=== PATIENT | female | born 1955 | race Caucasian/White ===

== ENCOUNTER 2016-05-12 23:37 | Emergency (ER) | payer MEDICARE, MEDICAID ==
[~2016-05-12] VITALS: Ht 177.8 cm; Wt 136.1 kg
[~2016-05-12 23:37] MED LIST: AC325T PO; AC500T PO; ACET650O PO; ALBU17AE3; ALBUT; APIX5TAB PO; APIX5TAB2 PO; ASP81TEC; ASP81TEC PO; ASPI-983 PO; AZIT-21 PO; AZIT500T2 PO; BENZ100C18 PO; BUDE180A IH; BUPR150T6; BUPR150T6 PO; CEFP500T4 PO; CEPH500C PO; CITA20TA4; CITA40TA11 PO; CITA40TA19 PO; CMBV14.7IN; CTLP20T; CTLP20T PO; CYCL10TA9 PO; DOXY-13 PO; ENAL20TA PO; ETOD400T PO; FLUT1DIS26 INH; FRSM40T; FURO40TA4 PO; GENT3.5O18 OD; HCTZ12.5T; HYDR-229 PO; HYDR-2890 PO; HYDR-3583 PO; HYDR-3820 PO; IBP800T PO; IPRA3AMP19; IPRA3AMP19 IH; KCL20TCR; KCL20TCR PO; LEVO250T7 PO; LEVO25TA5 PO; LEVO500T69 PO; LEVO50TA63; LISI10TA PO; LISI1TAB; LISI20TA; LSNP20T; LVT.025T; LVT.025T PO; MECL-106 PO; MECL25TA56 PO; METH4TAB PO; METO50TA2 PO; METO50TA7; METO50TA7 PO; MTP50T; MTP50T PO; MULT-1029 PO; NAPR-243 PO; NYST15CR3 TP; PNT40TEC PO; POTA20TA8 PO; PRD10T PO; PRD20T PO; RT-COMBINH; RT-COMBINH IH; RT-COMBINH INH; SIMV20TA3 PO; SMV20T; SMV20T PO; TELM1TAB2; TRAM50TA2 PO; TRM50T PO; WRF2.5T; WRF2.5T PO; WRF5T; WRF5T PO; ZLP10T PO; [UNRECOGNIZED DRUG - OTHER]
[2016-05-13] MEDS ORDERED: LACTATED RINGERS 1,000 ML IV ONE (00:04)
[2016-05-13 00:12] LABS: BASOPHILS % (AUTO) 0 % (0-10); EOSINOPHILS # (AUTO) 0.2 10^3/uL (0.0-0.3); EOSINOPHILS % (AUTO) 3 % (0-10); LYMPHOCYTES # (AUTO) 0.5 X 10^3 (1.0-4.0); LYMPHOCYTES % (AUTO) 8 % (12-44); MEAN CORPUSCULAR HEMOGLOBIN 30 PG (25-34); MEAN CORPUSCULAR HGB CONC 33 G/DL (32-36); MEAN CORPUSCULAR VOLUME 92 FL (80-99); MEAN PLATELET VOLUME 9.9 FL (7.4-10.4); MONOCYTES # (AUTO) 0.4 X 10^3 (0.0-1.0); MONOCYTES % (AUTO) 6 % (0-12); NEUTROPHILS % (AUTO) 83 % (42-75); PLATELET COUNT 164 10^3/uL (130-400); RED BLOOD COUNT 4.35 10^6/uL (4.35-5.85); RED CELL DISTRIBUTION WIDTH 13.9 % (10.0-14.5); WHITE BLOOD COUNT 6.1 10^3/uL (4.3-11.0)
--- NOTE | 2016-05-13 00:15 | ED GI ---
General Chief Complaint: Abdominal/GI Problems Stated Complaint: N/V/D Nursing Triage Note: n/v/d x 3 days Sepsis Screen: No Definite Risk Source of Information: Patient, Old Records History of Present Illness Time Seen By Provider: 00:01 Initial Comments PT ARRIVES VIA EMS FROM HOME C/O NAUSEA/VOMITING/DIARRHEA X 3 DAYS--EMS GAVE ZOFRAN 4 MG AND IV FLUIDS AND PT STATES SHE FEELS MUCH BETTER STATES SHE CAN'T KEEP ANYTHING DOWN LAST VOID UNKNOWN STATES SHE HAS VOMITED X 7 TODAY DIARRHEA BETWEEN 10 AND 20 TIMES TODAY SUBJECTIVE FEVER C/O HEADACHE--IS A CHRONIC COMPLAINT EVERY TIME SHE IS HERE, AND WANTS SOMETHING FOR PAIN FOR HER HEADACHE SOON SHE ARRIVES--THIS OCCURS EVERY TIME PT IS HERE C/O ENTIRE ABDOMEN IS SORE FROM VOMITING, BUT IS NOT ACTUAL ABDOMINAL PAIN +SICK CONTACTS WITH SAME NO SUSPICIOUS FOODS PT WITH MULTITUDE OF VISITS FOR VARIOUS COMPLAINTS PCP: DR. HAMEED Allergies and Home Medications Allergies Coded Allergies: No Known Drug Allergies (Verified , 04/02/15) Uncoded Allergies: NKDA (Allergy, Mild, 10/13/08) Home Medications Albuterol Sulfate/Ipratropium 3 Ml Solution 3 ML IH Q4H PRN PRN SHORTNESS OF BREATH (Reported) Apixaban 5 Mg Tablet 5 MG PO BID (Reported) Aspirin 81 Mg Tablet.dr 81 MG PO DAILY (Reported) Citalopram Hydrobromide 40 Mg Tablet 40 MG PO DAILY (Reported) Cyclobenzaprine HCl 10 Mg Tablet 10 MG PO TID PRN PRN MUSCLE SPASMS (Reported) Furosemide 40 Mg Tablet 40 MG PO DAILY (Reported) Hydrocodone/Acetaminophen 1 Each Tablet 1 TAB PO Q6H PRN PRN PAIN (Reported) Levothyroxine Sodium 25 Mcg Tablet 25 MCG PO DAILY (Reported) Meclizine HCl 25 Mg Tablet 25 MG PO TID PRN PRN DIZZINESS (Reported) Metoprolol Tartrate 50 Mg Tablet 50 MG PO BID (Reported) Multivit-Min/FA/Lycopene/Lut 1 Each Tablet 1 TAB PO DAILY (Reported) Ondansetron 4 Mg Tab.rapdis #10 4 MG PO Q4H Prescribed by: CARISSA ROMERO on 05/13/16 0049 Potassium Chloride 20 Meq Tab.er.prt 20 MEQ PO DAILY (Reported) Prednisone 20 Mg Tab #13 20 MG PO UD Prescribed by: SANDRITA ALVARADO on 06/16/15 1451 Simvastatin 20 Mg Tablet 20 MG PO HS (Reported) Review of Systems Constitutional: see HPI fever malaise weakness EENTM: Other (DRY MOUTH) Respiratory: No Symptoms Reported Cardiovascular: No Symptoms Reported Gastrointestinal: See HPI Abdominal Pain Diarrhea Nausea Poor Appetite Poor Fluid IntakeDenies Rectal Bleeding, Vomiting Genitourinary: No Symptoms Reported Musculoskeletal: no symptoms reported Skin: no symptoms reported Psychiatric/Neurological: No Symptoms Reported Endocrine: No Symptoms Reported Hematologic/Lymphatic: No Symptoms Reported Past [id number] Hx Patient Social History Alcohol Use: Denies Use Recreational Drug Use: No Smoking Status: Never a Smoker Recent Foreign Travel: No Contact w/Someone Who Travel: No Recent Infectious Disease Expo: No Physical Abuse Screen: No Sexual Abuse: No Immunizations Up To Date Tetanus Booster (TDap): Unknown PED Vaccines UTD: No Date of Pneumonia Vaccine: Apr 26, 2012 Date of Influenza Vaccine: Feb 24, 2015 Seasonal Allergies Seasonal Allergies: No Surgeries HX Surgeries: Yes (BILATERAL LEG VEIN STRIPPING ; MULTIPLE CARDIAC CATHS; LEFT WRIST REPAIR) Surgeries: Appendectomy, Cardiac, Ear Surgery, Hysterectomy, Orthopedic, Tubal Ligation, Vascular Surgery Respiratory Hx Respiratory Disorders: Yes Respiratory Disorders: Asthma, Pneumonia, Chronic Bronchitis, Sleep Apnea, COPD Cardiovascular Hx Cardiac Disorders: Yes ([place] 2005; VARICOSE VEINS) Cardiac Disorders: Atrial Fibrillation, Coronary Artery Disease, Heart Attack, High Cholesterol, Hypertension, Irregular Heartbeat, Peripheral Vascular Neurological Hx Neurological Disorders: Yes Neurological Disorders: Headaches /Migraines 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 System Hx 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 Disorders: No Sexually Transmitted Disease: No HIV/AIDS: No Female 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, Menopausal Genitourinary Hx Genitourinary Disorders: No Gastrointestinal Hx Gastrointestinal Disorders: No Musculoskeletal Hx Musculoskeletal Disorders: Yes ("PLATE IN LEFT WRIST"--NARCOTIC DEPENDENT) Musculoskeletal Disorders: Arthritis, Chronic Back Pain, Fractures Endocrine Hx Endocrine Disorders: Yes Endocrine Disorders: Hypothyroidsim HEENT HX ENT Disorders: No Loss of Vision: Denies Hearing Impairment: Denies Cancer Hx Cancer: No Psychosocial Hx Psychiatric Problems: Yes Behavioral Health Disorders: Anxiety, Bipolar, Depression Integumentary HX Skin/Integumentary Disorder: No Blood Transfusions Hx Blood Disorders: No Adverse Reaction to a Blood Tr: No Family Medical History Family Medial History: Cancer 03 MOTHER, Onset:60 years & older son, Onset:10's - 15 Dementia 03 MOTHER, Onset:60 years & older Family history: Alzheimer's disease 03 MOTHER, Onset:60 years & older Family history: Hypertension 09 BROTHER, Onset:30's - 40 Family history: Thyroid disorder daughter, Onset:20's - 25 History of - respiratory disease 09 BROTHER, Onset: Physical Exam Vital Signs VS - Last 72 Hours, by Label 05/12/16 23:45 Temp 100.7 Pulse 81 Resp 15 B/P 147/85 Pulse Ox 92 O2 Delivery Room Air Capillary Refill : Less Than 3 Seconds General Appearance: obese (MORBIDLY OBESE) other (DIRTY, MALODOROUS; REEKS OF CIGARETTES) HEENT: PERRL/EOMI other (ORAL MUCOSA MOIST) Respiratory: normal breath sounds no respiratory distress no accessory muscle use Cardiovascular: regular rate, rhythm no murmur Gastrointestinal: soft no organomegaly no pulsatile mass abnormal bowel sounds (HYPERACTIVE)No distended, No guarding, No rebound, tenderness (MILD DIFFUSE TENDERNESS)No hernia, No mass Extremities: normal inspection no pedal edema normal capillary refill Back: no CVA tenderness 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 no motor/sensory deficits alert normal mood/affect oriented x 3 Skin: normal color warm/dry Progress/Results/Core Measures Results/Orders Lab Results Laboratory Tests Test 05/12/16 23:44 05/13/16 00:40 Range/Units Alanine Aminotransferase (ALT/SGPT) 15 0-55 U/L Albumin 3.7 3.2-4.5 G/DL Alkaline Phosphatase 76 40-136 U/L Amylase Level 32 25-125 U/L Anion Gap 9 5-14 MMOL/L Aspartate Amino Transf (AST/SGOT) 19 5-34 U/L BUN/Creatinine Ratio 12 Basophils # (Auto) 0.0 0.0-0.1 10^3/uL Basophils (%) (Auto) 0 0-10 % Blood Urea Nitrogen 9 7-18 MG/DL Calcium Level 8.3 L 8.5-10.1 MG/DL Carbon Dioxide Level 24 21-32 MMOL/L Chloride Level 107 98-107 MMOL/L Creatinine 0.78 0.60-1.30 MG/DL Eosinophils # (Auto) 0.2 0.0-0.3 10^3/uL Eosinophils (%) (Auto) 3 0-10 % Estimat Glomerular Filtration Rate > 60 Glucose Level 130 H 70-105 MG/DL Hematocrit 40 35-52 % Hemoglobin 13.0 11.5-16.0 G/DL Lipase 11 8-78 U/L Lymphocytes # (Auto) 0.5 L 1.0-4.0 X 10^3 Lymphocytes (%) (Auto) 8 L 12-44 % Mean Corpuscular Hemoglobin 30 25-34 PG Mean Corpuscular Hemoglobin Concent 33 32-36 G/DL Mean Corpuscular Volume 92 80-99 FL Mean Platelet Volume 9.9 7.4-10.4 FL Monocytes # (Auto) 0.4 0.0-1.0 X 10^3 Monocytes (%) (Auto) 6 0-12 % Neutrophils # (Auto) 5.0 1.8-7.8 X 10^3 Neutrophils (%) (Auto) 83 H 42-75 % Platelet Count 164 130-400 10^3/uL Potassium Level 3.8 3.6-5.0 MMOL/L Red Blood Count 4.35 4.35-5.85 10^6/uL Red Cell Distribution Width 13.9 10.0-14.5 % Serum Alcohol < 10 <10 MG/DL Sodium Level 140 135-145 MMOL/L Total Bilirubin 0.6 0.1-1.0 MG/DL Total Protein 6.0 L 6.4-8.2 G/DL White Blood Count 6.1 4.3-11.0 10^3/uL Ur Tricyclic Antidepressants Screen NEGATIVE NEGATIVE Urine Amphetamines Screen NEGATIVE NEGATIVE Urine Bacteria NEGATIVE /HPF Urine Barbiturates Screen NEGATIVE NEGATIVE Urine Benzodiazepines Screen NEGATIVE NEGATIVE Urine Bilirubin NEGATIVE NEGATIVE Urine Cannabinoids Screen NEGATIVE NEGATIVE Urine Casts NONE /LPF Urine Clarity CLEAR Urine Cocaine Screen NEGATIVE NEGATIVE Urine Color YELLOW Urine Crystals NONE /LPF Urine Culture Indicated NO Urine Glucose (UA) NEGATIVE NEGATIVE Urine Ketones NEGATIVE NEGATIVE Urine Leukocyte Esterase 1+ H NEGATIVE Urine Methadone Screen NEGATIVE NEGATIVE Urine Methamphetamines Screen NEGATIVE NEGATIVE Urine Mucus SMALL H /LPF Urine Nitrite NEGATIVE NEGATIVE Urine Opiates Screen NEGATIVE NEGATIVE Urine Oxycodone Screen NEGATIVE NEGATIVE Urine Phencyclidine Screen NEGATIVE NEGATIVE Urine Propoxyphene Screen NEGATIVE NEGATIVE Urine Protein NEGATIVE NEGATIVE Urine RBC 2-5 H /HPF Urine RBC (Auto) 2+ H NEGATIVE Urine Specific [place] 1.010 L 1.016-1.022 Urine Squamous Epithelial Cells 2-5 /HPF Urine Urobilinogen NORMAL NORMAL MG/DL Urine WBC RARE /HPF Urine pH 6.5 5-9 My Orders Orders-DEANNA ROMEROGil Mejia DO Saline Lock/Iv-Start (05/13/16 00:04) Alcohol (05/13/16 00:04) Amylase (05/13/16 00:04) Cbc With Automated Diff (05/13/16 00:04) Comprehensive Metabolic Panel (05/13/16 00:04) Drug Screen Stat (Urine) (05/13/16 00:04) Lipase (05/13/16 00:04) Ua Culture If Indicated (05/13/16 00:04) Saline Lock/Iv-Start (05/13/16 00:04) Lactated Ringers (Lr 1000 Ml Iv Solution (05/13/16 00:04) Rx-Ondansetron Po (Rx-Zofran Po) (05/13/16 01:16) Medications Given in ED Current Medications Medications Dose Ordered Sig/Brianna Route Start Time Stop Time Status Last Admin Dose Admin Lactated Ringer's 1,000 ml @ 0 mls/hr Q0M ONCE IV 05/13/16 00:04 05/13/16 00:06 DC 05/13/16 00:16 0 MLS/HR Vital Signs/I&O Vital Sign - Last 12Hours 05/12/16 23:45 Temp 100.7 Pulse 81 Resp 15 B/P 147/85 Pulse Ox 92 O2 Delivery Room Air Blood Pressure Mean: 105 Progress Note : Progress Note NO NAUSEA/VOMITING OR DIARRHEA DURING ER STAY PT SLEPT/RESTED QUIETLY FOR ENTIRE ER STAY Departure Impression Impression: Primary Impression: Gastroenteritis Disposition: 01 HOME, SELF-CARE Condition: Stable Departure-Patient Inst. Referrals: SAIDA HAMEED MD (PCP/Family) Primary Care Physician Patient Instructions: Viral Gastroenteritis, Adult (DC) Add. Discharge Instructions: CLEAR LIQUIDS--WATER, BROTH, JELLO, GATORADE WHEN YOUR NAUSEA AND VOMITING HAVE STOPPED, ADD BRATS DIET TO CLEAR LIQUIDS-- BANANAS, RICE, APPLESAUCE, TOAST, SALTINES ACIDOPHILUS 2 PILLS 4 TIMES A DAY X 1 WEEK FOLLOW UP WITH YOUR DR IN 2-3 DAYS IF NO BETTER All discharge instructions reviewed with patient and/or family. Voiced understanding. Scripts Ondansetron (Zofran Odt)4 Mg Tab.rapdis4 Mg PO Q4H Nausea/Vomiting #10 TAB Prov:CARISSA ROMERO DO 05/13/16 CARISSA ROMERO DO May 13, 2016 00:15
[2016-05-13 00:27] LABS: ALANINE AMINOTRANSFERASE 15 U/L (0-55); ALBUMIN 3.7 G/DL (3.2-4.5); ALCOHOL < 10 MG/DL (<10); AMYLASE 32 U/L (25-125); ANION GAP 9 MMOL/L (5-14); ASPARTATE AMINO TRANSFERASE 19 U/L (5-34); BILIRUBIN,TOTAL 0.6 MG/DL (0.1-1.0); BLOOD UREA NITROGEN 9 MG/DL (7-18); BUN/CREATININE RATIO 12; CALCIUM 8.3 MG/DL (8.5-10.1); CARBON DIOXIDE 24 MMOL/L (21-32); CHLORIDE 107 MMOL/L (98-107); CREATININE SERUM 0.78 MG/DL (0.60-1.30); GFR ESTIMATED > 60; GLUCOSE 130 MG/DL (70-105); LIPASE 11 U/L (8-78); POTASSIUM 3.8 MMOL/L (3.6-5.0); SODIUM 140 MMOL/L (135-145)
[2016-05-13] MEDS ORDERED: ONDA4TAB8 PO (00:49)
[2016-05-13 00:50] LABS: BILIRUBIN,URINE NEGATIVE (NEGATIVE); KETONES,URINE NEGATIVE (NEGATIVE); LEUKOCYTE ESTERASE ,URINE 1+ (NEGATIVE); NITRITE,URINE NEGATIVE (NEGATIVE); PH,URINE 6.5 (5-9); PROTEIN,URINE NEGATIVE (NEGATIVE); UROBILINOGEN,URINE NORMAL (NORMAL)
[2016-05-13 01:03] LABS: WBC,URINE RARE /HPF
[2016-05-13] MEDS ORDERED: RX-ONDANSETRON 4 MG ODT (ZOFRAN) PPK #4 PO STA (01:16)
[2016-05-13 01:20] VITALS: BP 140/94
== END 2016-05-13 01:24 | disposition home or self-care (01) ==
LOC: EDUNIT# 23:37 → ER 23:38
DX: K52.9 Noninfective gastroenteritis and colitis, unspecified (principal); I10 Essential (primary) hypertension; J44.9 Chronic obstructive pulmonary disease, unspecified; E66.01 Morbid (severe) obesity due to excess calories; Z79.82 Long term (current) use of aspirin; Z79.899 Other long term (current) drug therapy; Z79.891 Long term (current) use of opiate analgesic
CPT/HCPCS: 36415; 80053; 80306; 80320; 81000; 82150; 83690; 85025; 96360

== ENCOUNTER 2016-08-25 14:26 | Emergency (ER) | payer MEDICARE, MEDICAID ==
[~2016-08-25] VITALS: Ht 177.8 cm; Wt 133.8 kg
[~2016-08-25 14:26] MED LIST changes: +ONDA4TAB8 PO
[2016-08-25 15:22] LABS: BASOPHILS % (AUTO) 0 % (0-10); EOSINOPHILS # (AUTO) 0.2 10^3/uL (0.0-0.3); EOSINOPHILS % (AUTO) 3 % (0-10); LYMPHOCYTES # (AUTO) 1.2 X 10^3 (1.0-4.0); LYMPHOCYTES % (AUTO) 17 % (12-44); MEAN CORPUSCULAR HEMOGLOBIN 29 PG (25-34); MEAN CORPUSCULAR HGB CONC 32 G/DL (32-36); MEAN CORPUSCULAR VOLUME 90 FL (80-99); MEAN PLATELET VOLUME 10.5 FL (7.4-10.4); MONOCYTES # (AUTO) 0.5 X 10^3 (0.0-1.0); MONOCYTES % (AUTO) 7 % (0-12); NEUTROPHILS # (AUTO) 5.3 X 10^3 (1.8-7.8); NEUTROPHILS % (AUTO) 73 % (42-75); PLATELET COUNT 205 10^3/uL (130-400); RED BLOOD COUNT 4.78 10^6/uL (4.35-5.85); WHITE BLOOD COUNT 7.2 10^3/uL (4.3-11.0)
[2016-08-25] MEDS ORDERED: ASPIRIN 81 MG CHEW (CHILDREN'S ASA) PO ONE (15:30)
[2016-08-25 15:42] LABS: ALANINE AMINOTRANSFERASE 17 U/L (0-55); ALBUMIN 4.2 G/DL (3.2-4.5); ANION GAP 7 MMOL/L (5-14); ASPARTATE AMINO TRANSFERASE 21 U/L (5-34); BILIRUBIN,TOTAL 0.5 MG/DL (0.1-1.0); BLOOD UREA NITROGEN 10 MG/DL (7-18); BUN/CREATININE RATIO 12; CALCIUM 9.2 MG/DL (8.5-10.1); CARBON DIOXIDE 29 MMOL/L (21-32); CHLORIDE 103 MMOL/L (98-107); CREATININE SERUM 0.86 MG/DL (0.60-1.30); GFR ESTIMATED > 60; GLUCOSE 104 MG/DL (70-105); MAGNESIUM 1.9 MG/DL (1.8-2.4); SODIUM 139 MMOL/L (135-145); TOTAL PROTEIN 6.9 G/DL (6.4-8.2)
--- NOTE | 2016-08-25 15:47 | ED General ---
General Chief Complaint: Abdominal/GI Problems Stated Complaint: DIZZINESS/NAUSEA/SHAKEY LEFT CALF PAIN Nursing Triage Note: SOB WITH ACTIVITY, LEFT POSTERIOR KNEE PAIN STARTED AT APPROX. 1200. Nursing Sepsis Screen: No Definite Risk Source of Information: Patient Exam Limitations: No Limitations (JAMES PHELAN MD) History of Present Illness Time Seen by Provider: 15:15 Initial Comments Here with report of 2 episodes today of feeling shaky, weak, dizzy and nauseated. Initially she was at work when she felt this way and had to sit down. After a little while she felt better. She tried walking around the [employer] after she got home and then noted that she had another episode of this and was told by her primary care doctor to come to the ER. Patient denies vomiting. She did have some epigastric discomfort but states that is typical for her. Denies any breathing problems. She did have sweating with the episodes earlier. She does have cardiac history and states that she takes her medicine as directed. Initial episode started at about noon today. She also complains of posterior left leg pain below the knee. Timing/Duration: 1-3 Hours, Intermittent Severity: Moderate Modifying Factors: worse with Movement, improves with Rest Associated Systoms: No Chest Pain, No Cough, Diaphoresis, Nausea/Vomiting, No Shortness of Air, Weakness (JAMES PHELAN MD) Allergies and Home Medications Allergies Coded Allergies: No Known Drug Allergies (Verified , 04/02/15) Home Medications Albuterol Sulfate/Ipratropium 3 Ml Solution, 3 ML IH Q4H PRN for SHORTNESS OF BREATH, (Reported) Apixaban 5 Mg Tablet, 5 MG PO BID, (Reported) Aspirin 81 Mg Tablet.dr, 81 MG PO DAILY, (Reported) Citalopram Hydrobromide 40 Mg Tablet, 40 MG PO DAILY, (Reported) Cyclobenzaprine HCl 10 Mg Tablet, 10 MG PO TID PRN for MUSCLE SPASMS, (Reported) Furosemide 40 Mg Tablet, 40 MG PO DAILY, (Reported) Levothyroxine Sodium 25 Mcg Tablet, 25 MCG PO DAILY, (Reported) Meclizine HCl 25 Mg Tablet, 25 MG PO TID PRN for DIZZINESS, (Reported) Metoprolol Tartrate 50 Mg Tablet, 50 MG PO BID, (Reported) Multivit-Min/FA/Lycopene/Lut 1 Each Tablet, 1 TAB PO DAILY, (Reported) Potassium Chloride 20 Meq Tab.er.prt, 20 MEQ PO DAILY, (Reported) Prednisone 20 Mg Tab, 20 MG PO UD, #13 Prescribed by: SANDRITA ALVARADO on 06/16/15 1451 Simvastatin 20 Mg Tablet, 20 MG PO HS, (Reported) Constitutional: see HPI, No chills, diaphoresis, No fever EENTM: no symptoms reported Respiratory: no symptoms reported, No short of breath, No wheezing Cardiovascular: No chest pain, Hx of Intervention Gastrointestinal: see HPI, No abdominal pain, nausea, No vomiting Genitourinary: no symptoms reported Musculoskeletal: see HPI Skin: see HPI Psychiatric/Neurological: No Symptoms Reported (JAMES PHELAN MD) All Other Systems Reviewed Negative Unless Noted: Yes (JAMES PHELAN MD) Past Jdpbeum-Gqmkds-Ypmjfc Hx Patient Social History Alcohol Use: Denies Use Recreational Drug Use: No Smoking Status: Never a Smoker 2nd Hand Smoke Exposure: No Recent Foreign Travel: No Contact w/Someone Who Travel: No Recent Infectious Disease Expo: No (JAMES PHELAN MD) Immunizations Up To Date Tetanus Booster (TDap): Unknown PED Vaccines UTD: No Date of Pneumonia Vaccine: Apr 26, 2012 Date of Influenza Vaccine: Feb 24, 2015 (JAMES PHELAN MD) Seasonal Allergies Seasonal Allergies: No (JAMES PHELAN MD) Surgeries HX Surgeries: Yes (BILATERAL LEG VEIN STRIPPING ; MULTIPLE CARDIAC CATHS; LEFT WRIST REPAIR) Surgeries: Appendectomy, Cardiac, Ear Surgery, Hysterectomy, Orthopedic, Tubal Ligation, Vascular Surgery (JAMES PHELAN MD) Respiratory Hx Respiratory Disorders: Yes Respiratory Disorders: Asthma, Pneumonia, Chronic Bronchitis, Sleep Apnea, COPD (JAMES PHELAN MD) Cardiovascular Hx Cardiac Disorders: Yes ([place] 2005; VARICOSE VEINS) Cardiac Disorders: Atrial Fibrillation, Coronary Artery Disease, Heart Attack, High Cholesterol, Hypertension, Irregular Heartbeat, Peripheral Vascular (JAMES PHELAN MD) Neurological Hx Neurological Disorders: Yes Neurological Disorders: Headaches /Migraines (JAMES PHELAN MD) 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 System Hx 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 Disorders: No Sexually Transmitted Disease: No HIV/AIDS: No Female 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 [employer] History: Hysterectomy, Menopausal (JAMES PHELAN MD) Genitourinary Hx Genitourinary Disorders: No (JAMES PHELAN MD) Gastrointestinal Hx Gastrointestinal Disorders: No (JAMES PHELAN MD) Musculoskeletal Hx Musculoskeletal Disorders: Yes ("PLATE IN LEFT WRIST"--NARCOTIC DEPENDENT) Musculoskeletal Disorders: Arthritis, Chronic Back Pain, Fractures (JAMES PHELAN MD) Endocrine Hx Endocrine Disorders: Yes Endocrine Disorders: Hypothyroidsim (JAMES PHELAN MD) HEENT HX ENT Disorders: No Loss of Vision: Denies Hearing Impairment: Denies (JAMES PHELAN MD) Cancer Hx Cancer: No (JAMES PHELAN MD) Psychosocial Hx Psychiatric Problems: Yes Behavioral Health Disorders: Anxiety, Bipolar, Depression (JAMES PHELAN MD) Integumentary HX Skin/Integumentary Disorder: No (JAMES PHELAN MD) Blood Transfusions Hx Blood Disorders: No Adverse Reaction to a Blood Tr: No (JAMES PHELAN MD) Reviewed Nursing Assessment Reviewed/Agree w Nursing PMH: Yes (JAMES PHELAN MD) Family Medical History Family Medial History: Cancer 03 MOTHER, Onset:60 years & older son, Onset:10's - 15 Dementia 03 MOTHER, Onset:60 years & older Family history: Alzheimer's disease 03 MOTHER, Onset:60 years & older Family history: Hypertension 09 BROTHER, Onset:30's - 40 Family history: Thyroid disorder daughter, Onset:20's - 25 History of - respiratory disease 09 BROTHER, Onset: (JAMES PHELAN MD) Family Medial History: Cancer 03 MOTHER, Onset:60 years & older son, Onset:10's - 15 Dementia 03 MOTHER, Onset:60 years & older Family history: Alzheimer's disease 03 MOTHER, Onset:60 years & older Family history: Hypertension 09 BROTHER, Onset:30's - 40 Family history: Thyroid disorder daughter, Onset:20's - 25 History of - respiratory disease 09 BROTHER, Onset: (JULIANA HERNANDEZ DO) Physical Exam Vital Signs Vital Sign - Last 12Hours 08/25/16 14:45 Temp 98.9 Pulse 62 Resp 20 B/P (MAP) 143/95 Pulse Ox 94 O2 Delivery Room Air (JULIANA HERNANDEZ DO) Vital Signs Capillary Refill : Less Than 3 Seconds (JAMES PHELAN MD) General Appearance: No Apparent Distress, WD/WN HEENT: PERRL/EOMI, Pharynx Normal Neck: Non Tender, Supple Respiratory: Lungs Clear, Normal Breath Sounds Cardiovascular: Regular Rate, Rhythm, No Murmur Gastrointestinal: Non Tender, Soft Back: Normal Inspection, No CVA Tenderness, No Vertebral Tenderness Extremity: Non Tender, Calf Tenderness (left) Neurologic/Psychiatric: Alert, Oriented x3 Skin: Normal Color, Warm/Dry (JAMES PHELAN MD) Progress/Results/Core Measures Results/Orders Lab Results Laboratory Tests Test 08/25/16 14:53 08/25/16 16:00 Range/Units White Blood Count 7.2 4.3-11.0 10^3/uL Red Blood Count 4.78 4.35-5.85 10^6/uL Hemoglobin 13.8 11.5-16.0 G/DL Hematocrit 43 35-52 % Mean Corpuscular Volume 90 80-99 FL Mean Corpuscular Hemoglobin 29 25-34 PG Mean Corpuscular Hemoglobin Concent 32 32-36 G/DL Red Cell Distribution Width 14.0 10.0-14.5 % Platelet Count 205 130-400 10^3/uL Mean Platelet Volume 10.5 H 7.4-10.4 FL Neutrophils (%) (Auto) 73 42-75 % Lymphocytes (%) (Auto) 17 12-44 % Monocytes (%) (Auto) 7 0-12 % Eosinophils (%) (Auto) 3 0-10 % Basophils (%) (Auto) 0 0-10 % Neutrophils # (Auto) 5.3 1.8-7.8 X 10^3 Lymphocytes # (Auto) 1.2 1.0-4.0 X 10^3 Monocytes # (Auto) 0.5 0.0-1.0 X 10^3 Eosinophils # (Auto) 0.2 0.0-0.3 10^3/uL Basophils # (Auto) 0.0 0.0-0.1 10^3/uL Sodium Level 139 135-145 MMOL/L Potassium Level 4.0 3.6-5.0 MMOL/L Chloride Level 103 98-107 MMOL/L Carbon Dioxide Level 29 21-32 MMOL/L Anion Gap 7 5-14 MMOL/L Blood Urea Nitrogen 10 7-18 MG/DL Creatinine 0.86 0.60-1.30 MG/DL Estimat Glomerular Filtration Rate > 60 BUN/Creatinine Ratio 12 Glucose Level 104 70-105 MG/DL Calcium Level 9.2 8.5-10.1 MG/DL Magnesium Level 1.9 1.8-2.4 MG/DL Total Bilirubin 0.5 0.1-1.0 MG/DL Aspartate Amino Transf (AST/SGOT) 21 5-34 U/L Alanine Aminotransferase (ALT/SGPT) 17 0-55 U/L Alkaline Phosphatase 91 40-136 U/L Troponin I < 0.30 <0.30 NG/ML Total Protein 6.9 6.4-8.2 G/DL Albumin 4.2 3.2-4.5 G/DL Lipase 20 8-78 U/L Thyroid Stimulating Hormone (TSH) 3.72 0.35-4.94 UIU/ML Urine Color YELLOW Urine Clarity CLEAR Urine pH 6 5-9 Urine Specific [place] 1.010 L 1.016-1.022 Urine Protein NEGATIVE NEGATIVE Urine Glucose (UA) NEGATIVE NEGATIVE Urine Ketones NEGATIVE NEGATIVE Urine Nitrite NEGATIVE NEGATIVE Urine Bilirubin NEGATIVE NEGATIVE Urine Urobilinogen NORMAL NORMAL MG/DL Urine Leukocyte Esterase 2+ H NEGATIVE Urine RBC (Auto) 1+ H NEGATIVE Urine RBC RARE /HPF Urine WBC 10-25 H /HPF Urine Squamous Epithelial Cells 0-2 /HPF Urine Crystals NONE /LPF Urine Bacteria FEW H /HPF Urine Casts NONE /LPF Urine Mucus NEGATIVE /LPF Urine Culture Indicated YES (JULIANA HERNANDEZ DO) Medications Given in ED Current Medications Medications Dose Ordered Sig/Brianna Route Start Time Stop Time Status Last Admin Dose Admin Aspirin 324 mg ONCE ONCE PO 08/25/16 15:30 08/25/16 15:31 DC 08/25/16 16:11 324 MG Iohexol 150 ml ONCE ONCE IV 08/25/16 16:45 08/25/16 17:01 DC 08/25/16 17:44 150 ML Sodium Chloride 1,000 ml @ 0 mls/hr Q0M ONCE IV 08/25/16 16:35 08/25/16 16:36 DC 08/25/16 17:09 1,000 MLS/HR (JULIANA HERNANDEZ DO) Vital Signs/I&O Vital Sign - Last 12Hours 08/25/16 14:45 Temp 98.9 Pulse 62 Resp 20 B/P (MAP) 143/95 Pulse Ox 94 O2 Delivery Room Air (JULIANA HERNANDEZ DO) Blood Pressure Mean: 111 Progress Note : Progress Note Seen and evaluated. Aspirin 324 mg by mouth ordered. IV, labs, chest x-ray and EKG ordered. Ultrasound left lower extremity venous ordered. Monitor patient. Patient is currently without chest pain or symptoms. 1630: CT chest and abdomen ordered due to x-ray findings. Normal saline 1 L bolus ordered. Monitor patient. 1805: CT angiogram completed. Final read pending. (JAMES PHELAN MD) ECG Initial ECG Impression Date: August 25, 2016 Initial ECG Impression Time: 15:33 Initial ECG Rate: 56 Initial ECG Rhythm: Normal Sinus Comment Sinus rhythm with normal axis. No evidence of ST elevation [place]. Similar to previous of 10/13/13. Interpreted by me. (JAMES PHELAN MD) Diagnostic Imaging Diagonstic Imaging: Xray Plain Films/CT/US/NM/MRI: chest Comments NAME: PEYMAN MENDO[facility] REC#: [id number] PT STATUS: REG ER : 1955 PHYSICIAN: JAMES PHELAN MD ADMIT DATE: 08/25/16/ER Signed Date of Exam: 08/25/16 CHEST PA/LAT (2 VIEW) INDICATION: Patient was at work when she start feeling dizzy and sweating with shortness of air. COMPARISON STUDY: Chest from 02/25/2016. FINDINGS: Frontal and lateral views of the chest demonstrate some tortuosity of the aorta which appears stable. The heart size remains upper normal. The vascularity is normal. There are no effusions. IMPRESSION: There is tortuosity of the aorta. This appears stable. Some aneurysmal dilatation cannot be excluded. Dictated by: Dictated on workstation # [id number] Dict: 08/25/16 161 Trans: 08/25/16 161 Interpreted by: CHANDLER CHANG MD Electronically signed by: CHANDLER CHANG MD 08/25/161616 Diagonstic Imaging: Ultrasound Plain Films/CT/US/NM/MRI: leg Comments [facility] [place], [place] NAME: PEYMAN MENDOZA [facility] REC#: [id number] PT STATUS: [facility] ER : 1955 PHYSICIAN: JAMES PHELAN MD ADMIT DATE: 08/25/16/ER Draft Date of Exam:08/25/16 US VENOUS LOWER EXT LT PROCEDURE: US left lower extremity venous. TECHNIQUE: Multiple real-time grayscale images were obtained over the left lower extremity in various projections. Additional duplex Doppler and color Doppler images were also obtained. INDICATION: Pain behind the left leg. FINDINGS: Real-time imaging shows normal color flow enhancement from the external iliac vein to the ankle. Calf compression shows normal augmentation of flow at the popliteal level. No evidence of popliteal cyst. IMPRESSION: Normal left lower extremity color duplex venous ultrasound. Dictated on workstation # [id number] Dict: 08/25/16 1610 Trans: 08/25/16 1614 [id number] Interpreted by: RADHA ROSADO MD Electronically signed by: Diagonstic Imaging: CT Plain Films/CT/US/NM/MRI: chest, abdomen Comments NAME: PEYMAN MENDOZA [facility] REC#: [id number] PT STATUS: [facility] ER : 1955 PHYSICIAN: JAMES PHELAN MD ADMIT DATE: 08/25/16/ER Signed Date of Exam: 08/25/16 CT ANGIO CHEST/ABD W PROCEDURE: CT angiography of the abdomen and chest with and without contrast. TECHNIQUE: After intravenous administration of contrast, thin section axial CT angiography of the abdomen and chest were obtained. Multiple MIP reformats were provided. INDICATION: Dizziness, warm flush feeling. COMPARISON: 01/29/2010. DISCUSSION: Chest: There is no large or central pulmonary embolus identified. The pulmonary arteries are not dilated. The thoracic aorta is normal in caliber and configuration. Mild atherosclerotic plaque is present. The heart is normal in size. No pleural or pericardial fluid. No focal consolidation or suspicious pulmonary nodule identified. No mediastinal, hilar, or axillary adenopathy. Mild tortuosity of the thoracic aorta is likely due to long-standing hypertension. Abdomen: Small cystic changes are noted within the liver and the right kidney, benign in appearance. The gallbladder, pancreas, stomach, adrenal glands, and left kidney are unremarkable. The spleen is enlarged measuring 15.5 cm. There is no ascites or abnormal lymph nodes identified. The large and small bowel loops appear within normal limits, as visualized. Age-related degenerative changes are noted throughout the spine. No acute osseous abnormality identified. IMPRESSION: 1. No acute abnormality identified within either the abdomen or chest. 2. Splenomegaly. Dictated by: Dictated on workstation # [id number] Dict: 08/25/16 1804 Trans: 08/25/161910 Interpreted by: SONIA ESPANA MD Electronically signed by: SONIA ESPANA MD 08/25/161910 (JAMES PHELAN MD) Departure Impression Impression: Primary Impression: Chest pain Disposition: 01 HOME, SELF-CARE Departure-Patient Inst. Decision time for Depature: 18:07 (JAMES PHELAN MD) Referrals: SAIDA HAMEED MD (PCP/Family) Primary Care Physician Patient Instructions: Chest Pain (DC) Add. Discharge Instructions: All discharge instructions reviewed with patient and/or family. Voiced understanding. Continue home medications as directed. Follow-up with your Dr. in a few days for recheck. Return for worse pain, fever, vomiting, weakness, breathing problems or other concerns as needed. Drink adequate amount of fluids. JAMES PHELAN MD August 25, 2016 15:46 JULIANA HERNANDEZ DO August 25, 2016 18:28
[2016-08-25 15:53] LABS: THYROID STIMULATING HORMONE 3.72 UIU/ML (0.35-4.94); TROPONIN I < 0.30 NG/ML (<0.30)
--- NOTE | 2016-08-25 16:14 | Diagnostic Imaging Report ---
PROCEDURE: US left lower extremity venous. TECHNIQUE: Multiple real-time grayscale images were obtained over the left lower extremity in various projections. Additional duplex Doppler and color Doppler images were also obtained. INDICATION: Pain behind the left leg. FINDINGS: Real-time imaging shows normal color flow enhancement from the external iliac vein to the ankle. Calf compression shows normal augmentation of flow at the popliteal level. No evidence of popliteal cyst. IMPRESSION: Normal left lower extremity color duplex venous ultrasound. Dictated by: Dictated on workstation # [id number]
--- NOTE | 2016-08-25 16:16 | Diagnostic Imaging Report ---
INDICATION: Patient was at work when she start feeling dizzy and sweating with shortness of air. COMPARISON STUDY: Chest from 02/25/2016. FINDINGS: Frontal and lateral views of the chest demonstrate some tortuosity of the aorta which appears stable. The heart size remains upper normal. The vascularity is normal. There are no effusions. IMPRESSION: There is tortuosity of the aorta. This appears stable. Some aneurysmal dilatation cannot be excluded. Dictated by: Dictated on workstation # [id number]
[2016-08-25 16:19] LABS: BILIRUBIN,URINE NEGATIVE (NEGATIVE); KETONES,URINE NEGATIVE (NEGATIVE); LEUKOCYTE ESTERASE ,URINE 2+ (NEGATIVE); NITRITE,URINE NEGATIVE (NEGATIVE); PH,URINE 6 (5-9); PROTEIN,URINE NEGATIVE (NEGATIVE); UROBILINOGEN,URINE NORMAL (NORMAL)
[2016-08-25 16:28] LABS: SQUAMOUS EPITHELIAL CELL,UR 0-2 /HPF
[2016-08-25] MEDS ORDERED: NS IV 1000 ML 1,000 ML IV ONE (16:35)
[2016-08-25] MEDS ORDERED: IOHEXOL 350 MG/ML 150 ML (OMNIPAQUE 350) VIAL IV ONE (16:45)
--- NOTE | 2016-08-25 18:12 | Diagnostic Imaging Report ---
PROCEDURE: CT angiography of the abdomen and chest with and without contrast. TECHNIQUE: After intravenous administration of contrast, thin section axial CT angiography of the abdomen and chest were obtained. Multiple MIP reformats were provided. INDICATION: Dizziness, warm flush feeling. COMPARISON: 01/29/2010. DISCUSSION: Chest: There is no large or central pulmonary embolus identified. The pulmonary arteries are not dilated. The thoracic aorta is normal in caliber and configuration. Mild atherosclerotic plaque is present. The heart is normal in size. No pleural or pericardial fluid. No focal consolidation or suspicious pulmonary nodule identified. No mediastinal, hilar, or axillary adenopathy. Mild tortuosity of the thoracic aorta is likely due to long-standing hypertension. Abdomen: Small cystic changes are noted within the liver and the right kidney, benign in appearance. The gallbladder, pancreas, stomach, adrenal glands, and left kidney are unremarkable. The spleen is enlarged measuring 15.5 cm. There is no ascites or abnormal lymph nodes identified. The large and small bowel loops appear within normal limits, as visualized. Age-related degenerative changes are noted throughout the spine. No acute osseous abnormality identified. IMPRESSION: 1. No acute abnormality identified within either the abdomen or chest. 2. Splenomegaly. Dictated by: Dictated on workstation # [id number]
[2016-08-25 18:32] VITALS: BP 161/89
== END 2016-08-25 18:32 | disposition home or self-care (01) ==
LOC: EDUNIT# 14:26 → ER 14:30
DX: R07.9 Chest pain, unspecified (principal); R42 Dizziness and giddiness; M79.662 Pain in left lower leg; I25.10 Atherosclerotic heart disease of native coronary artery without angina pectoris; I10 Essential (primary) hypertension; J44.9 Chronic obstructive pulmonary disease, unspecified; Z79.899 Other long term (current) drug therapy
CPT/HCPCS: 36415; 71020; 71275; 74175; 80053; 81000; 83690; 83735; 84443; 84484; 85025; 87088; 93005; 96360

== ENCOUNTER 2016-11-29 23:04 | Emergency (ER) | payer MEDICARE, MEDICAID ==
[~2016-11-29] VITALS: Ht 177.8 cm; Wt 133.8 kg
[2016-11-30] MEDS ORDERED: NS IV 1000 ML 1,000 ML IV ONE
[2016-11-30 00:18] LABS: BASOPHILS % (AUTO) 0 % (0-10); EOSINOPHILS # (AUTO) 0.2 10^3/uL (0.0-0.3); EOSINOPHILS % (AUTO) 3 % (0-10); LYMPHOCYTES # (AUTO) 0.8 X 10^3 (1.0-4.0); LYMPHOCYTES % (AUTO) 12 % (12-44); MEAN CORPUSCULAR HEMOGLOBIN 30 PG (25-34); MEAN CORPUSCULAR HGB CONC 32 G/DL (32-36); MEAN CORPUSCULAR VOLUME 92 FL (80-99); MEAN PLATELET VOLUME 9.8 FL (7.4-10.4); MONOCYTES # (AUTO) 0.5 X 10^3 (0.0-1.0); MONOCYTES % (AUTO) 7 % (0-12); NEUTROPHILS # (AUTO) 5.6 X 10^3 (1.8-7.8); NEUTROPHILS % (AUTO) 78 % (42-75); PLATELET COUNT 165 10^3/uL (130-400); RED BLOOD COUNT 4.37 10^6/uL (4.35-5.85); RED CELL DISTRIBUTION WIDTH 13.9 % (10.0-14.5); WHITE BLOOD COUNT 7.2 10^3/uL (4.3-11.0)
[2016-11-30 00:40] LABS: ALANINE AMINOTRANSFERASE 18 U/L (0-55); ALBUMIN 3.6 GM/DL (3.2-4.5); ANION GAP 10 MMOL/L (5-14); ASPARTATE AMINO TRANSFERASE 18 U/L (5-34); BILIRUBIN,TOTAL 0.3 MG/DL (0.1-1.0); BLOOD UREA NITROGEN 9 MG/DL (7-18); BUN/CREATININE RATIO 11; CALCIUM 8.7 MG/DL (8.5-10.1); CARBON DIOXIDE 27 MMOL/L (21-32); CHLORIDE 105 MMOL/L (98-107); CREATININE SERUM 0.83 MG/DL (0.60-1.30); GFR ESTIMATED > 60; GLUCOSE 118 MG/DL (70-105); POTASSIUM 3.6 MMOL/L (3.6-5.0); SODIUM 142 MMOL/L (135-145); TOTAL PROTEIN 6.1 GM/DL (6.4-8.2)
[2016-11-30] MEDS ORDERED: FAMOTIDINE 20MG/2ML IV (PEPCID) IVP ONE (00:45)
[2016-11-30] MEDS ORDERED: ONDANSETRON 4 MG/2 ML (SDV) Z0FRAN IVP ONE (00:45)
[2016-11-30] MEDS ORDERED: HYOSCYAMINE 0.125 MG (LEVSIN) TAB SL ONE (00:45)
[2016-11-30 01:02] LABS: LIPASE 22 U/L (8-78); MAGNESIUM 1.8 MG/DL (1.8-2.4)
[2016-11-30 01:08] LABS: TROPONIN I < 0.30 NG/ML (<0.30)
[2016-11-30 02:02] LABS: BILIRUBIN,URINE NEGATIVE (NEGATIVE); KETONES,URINE NEGATIVE (NEGATIVE); LEUKOCYTE ESTERASE ,URINE 2+ (NEGATIVE); NITRITE,URINE NEGATIVE (NEGATIVE); PH,URINE 6 (5-9); PROTEIN,URINE NEGATIVE (NEGATIVE); UROBILINOGEN,URINE NORMAL (NORMAL)
[2016-11-30 02:10] LABS: SQUAMOUS EPITHELIAL CELL,UR 0-2 /HPF
[2016-11-30] MEDS ORDERED: RX-ONDANSETRON 4 MG ODT (ZOFRAN) PPK #4 SL STA (02:27)
--- NOTE | 2016-11-30 02:31 | ED Abdominal Pain ---
General Chief Complaint: Abdominal/GI Problems Stated Complaint: D/N FEVER WEAK Nursing Triage Note: C/O N/D Sepsis Screen: No Definite Risk Source of Information: Patient Exam Limitations: No Limitations History of Present Illness Time Seen By Provider: 00:00 Initial Comments This 61-year-old woman presents to the emergency room complaining of diarrhea, nausea without vomiting, fever, chills. She also experienced some chest pain associated with the abdominal discomfort that radiated to the back. That chest discomfort is now gone. She has some general central abdominal pain associated with the diarrhea. She feels very weak. Symptoms started Wednesday morning. She has a mild cough. Allergies and Home Medications Allergies Coded Allergies: No Known Drug Allergies (Verified , 04/02/15) Home Medications Albuterol Sulfate/Ipratropium 3 Ml Solution, 3 ML IH Q4H PRN for SHORTNESS OF BREATH, (Reported) Apixaban 5 Mg Tablet, 5 MG PO BID, (Reported) Aspirin 81 Mg Tablet.dr, 81 MG PO DAILY, (Reported) Citalopram Hydrobromide 40 Mg Tablet, 40 MG PO DAILY, (Reported) Cyclobenzaprine HCl 10 Mg Tablet, 10 MG PO TID PRN for MUSCLE SPASMS, (Reported) Furosemide 40 Mg Tablet, 40 MG PO DAILY, (Reported) Levothyroxine Sodium 25 Mcg Tablet, 25 MCG PO DAILY, (Reported) Meclizine HCl 25 Mg Tablet, 25 MG PO TID PRN for DIZZINESS, (Reported) Metoprolol Tartrate 50 Mg Tablet, 50 MG PO BID, (Reported) Multivit-Min/FA/Lycopene/Lut 1 Each Tablet, 1 TAB PO DAILY, (Reported) Potassium Chloride 20 Meq Tab.er.prt, 20 MEQ PO DAILY, (Reported) Prednisone 20 Mg Tab, 20 MG PO UD, #13 Prescribed by: SANDRITA ALVARADO on 06/16/15 1451 Simvastatin 20 Mg Tablet, 20 MG PO HS, (Reported) Review of Systems Constitutional: see HPI EENTM: No Symptoms Reported Respiratory: See HPI Cardiovascular: No Symptoms Reported Gastrointestinal: See HPI Genitourinary: No Symptoms Reported Musculoskeletal: no symptoms reported Skin: no symptoms reported Psychiatric/Neurological: No Symptoms Reported Endocrine: No Symptoms Reported Hematologic/Lymphatic: No Symptoms Reported Past Imfhoao-Ytmzhy-Edmkse Hx Patient Social History Alcohol Use: Denies Use Recreational Drug Use: No Smoking Status: Never a Smoker 2nd Hand Smoke Exposure: No Recent Foreign Travel: No Contact w/Someone Who Travel: No Recent Infectious Disease Expo: No Recent Hopitalizations: No (for surgery, pneumonia, chest pain) Immunizations Up To Date Tetanus Booster (TDap): Unknown PED Vaccines UTD: No Date of Pneumonia Vaccine: Apr 26, 2012 Date of Influenza Vaccine: Feb 24, 2015 Seasonal Allergies Seasonal Allergies: No Surgeries HX Surgeries: Yes (BILATERAL LEG VEIN STRIPPING ; MULTIPLE CARDIAC CATHS; LEFT WRIST REPAIR; basal cell carcinoma resection) Surgeries: Appendectomy, Cardiac, Ear Surgery, Hysterectomy, Orthopedic, Tubal Ligation, Vascular Surgery (vein stripping) Respiratory Hx Respiratory Disorders: Yes Respiratory Disorders: Asthma, Pneumonia, Chronic Bronchitis, Sleep Apnea, COPD Cardiovascular Hx Cardiac Disorders: Yes ([place] 2004; VARICOSE VEINS) Cardiac Disorders: Atrial Fibrillation, Coronary Artery Disease, Heart Attack, High Cholesterol, Hypertension, Irregular Heartbeat, Peripheral Vascular Neurological Hx Neurological Disorders: Yes Neurological Disorders: Headaches /Migraines 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 System Hx 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 Disorders: No Sexually Transmitted Disease: No HIV/AIDS: No Female 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, 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 Genitourinary Hx Genitourinary Disorders: No Gastrointestinal Hx Gastrointestinal Disorders: No Musculoskeletal Hx Musculoskeletal Disorders: Yes ("PLATE IN LEFT WRIST"--NARCOTIC DEPENDENT) Musculoskeletal Disorders: Arthritis, Chronic Back Pain, Fractures Endocrine Hx Endocrine Disorders: Yes Endocrine Disorders: Hypothyroidsim HEENT HX ENT Disorders: No Loss of Vision: Denies Hearing Impairment: Denies Cancer Hx Cancer: No Psychosocial Hx Psychiatric Problems: Yes Behavioral Health Disorders: Anxiety, Bipolar, Depression Integumentary HX Skin/Integumentary Disorder: No Blood Transfusions Hx Blood Disorders: No Adverse Reaction to a Blood Tr: No Family Medical History Family Medial History: Cancer 03 MOTHER, Onset:60 years & older son, Onset:10's - 15 Dementia 03 MOTHER, Onset:60 years & older Family history: Alzheimer's disease 03 MOTHER, Onset:60 years & older Family history: Hypertension 09 BROTHER, Onset:30's - 40 Family history: Thyroid disorder daughter, Onset:20's - 25 History of - respiratory disease 09 BROTHER, Onset:[place] Physical Exam Vital Signs VS - Last 72 Hours, by Label 11/29/16 11/30/16 23:22 02:36 Temp 101.5 98.2 Pulse 82 78 Resp 18 18 B/P (MAP) 147/92 Pulse Ox 93 95 Capillary Refill : Less Than 3 Seconds General Appearance: WD/WN, no apparent distress HEENT: normal ENT inspection, pharynx normal Neck: normal inspection Respiratory: lungs clear, normal breath sounds, no respiratory distress, no accessory muscle use Cardiovascular: regular rate, rhythm, no edema, no murmur Gastrointestinal: normal bowel sounds, soft, tenderness (mild generalized tenderness in the central abdomen) Extremities: normal inspection, no pedal edema Neurologic/Psychiatric: contract paralegal II-XII nml as tested, no motor/sensory deficits, alert, normal mood/affect, oriented x 3 Skin: normal color, warm/dry Progress/Results/Core Measures Results/Orders Lab Results Laboratory Tests Test 11/30/16 00:10 11/30/16 01:55 Range/Units White Blood Count 7.2 4.3-11.0 10^3/uL Red Blood Count 4.37 4.35-5.85 10^6/uL Hemoglobin 13.0 11.5-16.0 G/DL Hematocrit 40 35-52 % Mean Corpuscular Volume 92 80-99 FL Mean Corpuscular Hemoglobin 30 25-34 PG Mean Corpuscular Hemoglobin Concent 32 32-36 G/DL Red Cell Distribution Width 13.9 10.0-14.5 % Platelet Count 165 130-400 10^3/uL Mean Platelet Volume 9.8 7.4-10.4 FL Neutrophils (%) (Auto) 78 H 42-75 % Lymphocytes (%) (Auto) 12 12-44 % Monocytes (%) (Auto) 7 0-12 % Eosinophils (%) (Auto) 3 0-10 % Basophils (%) (Auto) 0 0-10 % Neutrophils # (Auto) 5.6 1.8-7.8 X 10^3 Lymphocytes # (Auto) 0.8 L 1.0-4.0 X 10^3 Monocytes # (Auto) 0.5 0.0-1.0 X 10^3 Eosinophils # (Auto) 0.2 0.0-0.3 10^3/uL Basophils # (Auto) 0.0 0.0-0.1 10^3/uL Sodium Level 142 135-145 MMOL/L Potassium Level 3.6 3.6-5.0 MMOL/L Chloride Level 105 98-107 MMOL/L Carbon Dioxide Level 27 21-32 MMOL/L Anion Gap 10 5-14 MMOL/L Blood Urea Nitrogen 9 7-18 MG/DL Creatinine 0.83 0.60-1.30 MG/DL Estimat Glomerular Filtration Rate > 60 BUN/Creatinine Ratio 11 Glucose Level 118 H 70-105 MG/DL Calcium Level 8.7 8.5-10.1 MG/DL Magnesium Level 1.8 1.8-2.4 MG/DL Total Bilirubin 0.3 0.1-1.0 MG/DL Aspartate Amino Transf (AST/SGOT) 18 5-34 U/L Alanine Aminotransferase (ALT/SGPT) 18 0-55 U/L Alkaline Phosphatase 107 40-136 U/L Troponin I < 0.30 <0.30 NG/ML Total Protein 6.1 L 6.4-8.2 GM/DL Albumin 3.6 3.2-4.5 GM/DL Lipase 22 8-78 U/L Urine Color YELLOW Urine Clarity CLEAR Urine pH 6 5-9 Urine Specific [place] 1.015 L 1.016-1.022 Urine Protein NEGATIVE NEGATIVE Urine Glucose (UA) NEGATIVE NEGATIVE Urine Ketones NEGATIVE NEGATIVE Urine Nitrite NEGATIVE NEGATIVE Urine Bilirubin NEGATIVE NEGATIVE Urine Urobilinogen NORMAL NORMAL MG/DL Urine Leukocyte Esterase 2+ H NEGATIVE Urine RBC (Auto) 1+ H NEGATIVE Urine RBC RARE /HPF Urine WBC 2-5 /HPF Urine Squamous Epithelial Cells 0-2 /HPF Urine Crystals NONE /LPF Urine Bacteria TRACE /HPF Urine Casts NONE /LPF Urine Mucus NEGATIVE /LPF Urine Culture Indicated NO My Orders Orders - HUGH CORDOVA MD Cbc With Automated Diff (11/30/16 00:00) Comprehensive Metabolic Panel (11/30/16 00:00) Ua Culture If Indicated (11/30/16 00:00) Saline Lock/Iv-Start (11/30/16 00:00) Ns Iv 1000 Ml (Sodium Chloride 0.9%) (11/30/16 00:00) Lipase (11/30/16 00:36) Chest Pa/Lat (2 View) (11/30/16 00:36) Magnesium (11/30/16 00:36) Troponin I (11/30/16 00:36) Ekg Tracing (11/30/16 00:36) Ondansetron Injection (Zofran Injectio (11/30/16 00:45) Hyoscyamine Sl Tablet (Levsin Sl Tablet) (11/30/16 00:45) Famotidine Injection (Pepcid Injection) (11/30/16 00:45) Rx-Ondansetron Po (Rx-Zofran Po) (11/30/16 02:27) Ketorolac Injection (Toradol Injection) (11/30/16 03:00) Medications Given in ED Current Medications Medications Dose Ordered Sig/Brianna Route Start Time Stop Time Status Last Admin Dose Admin Famotidine 20 mg ONCE ONCE IVP 11/30/16 00:45 11/30/16 00:46 DC 11/30/16 00:41 20 MG Hyoscyamine Sulfate 0.125 mg ONCE ONCE SL 11/30/16 00:45 11/30/16 00:46 DC 11/30/16 00:42 0.125 MG Ketorolac Tromethamine 30 mg ONCE ONCE IVP 11/30/16 03:00 11/30/16 03:01 DC 11/30/16 02:55 30 MG Ondansetron HCl 8 mg ONCE ONCE IVP 11/30/16 00:45 11/30/16 00:46 DC 11/30/16 00:42 8 MG Sodium Chloride 1,000 ml @ 0 mls/hr Q0M ONCE IV 11/30/16 00:00 11/30/16 00:02 DC 11/30/16 00:11 0 MLS/HR Vital Signs/I&O Vital Sign - Last 12Hours 11/29/16 11/30/16 23:22 02:36 Temp 101.5 98.2 Pulse 82 78 Resp 18 18 B/P (MAP) 147/92 Pulse Ox 93 95 Blood Pressure Mean: 110 Progress Note : Progress Note Patient received a liter of IV fluids, Pepcid, Levsin and Zofran. Toradol was given prior to dismissal. Workup was relatively unremarkable. Take-home packet of Zofran was dispensed. She was feeling much better prior to dismissal. ECG Initial ECG Impression Date: Nov 30, 2016 Initial ECG Impression Time: 00:43 Initial ECG Rate: 69 Initial ECG Rhythm: Normal Sinus Initial ECG Intervals: Normal Initial ECG Impression: Normal Comment Normal sinus rhythm with no ST elevation or depression. No abnormal intervals or axis deviation. Diagnostic Imaging Diagonstic Imaging: Xray Plain Films/CT/US/NM/MRI: chest Comments Chest x-ray viewed by me. Report not yet available. No acute abnormalities appreciated. Departure Impression Impression: Primary Impression: Fever Qualified Codes: R50.9 - Fever, unspecified Additional Impressions: Generalized abdominal pain Diarrhea Qualified Codes: R19.7 - Diarrhea, unspecified Nausea Atypical chest pain Disposition: 01 HOME, SELF-CARE Condition: Improved Departure-Patient Inst. Decision time for Depature: 14:20 Referrals: SAIDA HAMEED MD (PCP/Family) Primary Care Physician Patient Instructions: Acute Abdomen (Belly Pain), Adult (DC) Add. Discharge Instructions: Dissolve Zofran (ondansetron) under the tongue every 4 hours as needed for nausea and vomiting. Drink plenty of clear liquids. Gradually advance her diet with small quantities of bland food as tolerated. Take Tylenol (acetaminophen) up to 1000 mg every 6 hours as needed for fever and pain. Consider taking an rorz-qwm-qbzapro antacid such as Pepcid (famotidine) or Prilosec (omeprazole) while your chest or abdominal discomfort persists. Return to care if symptoms worsen. All discharge instructions reviewed with patient and/or family. Voiced understanding. HUGH CORDOVA MD Nov 30, 2016 02:31
[2016-11-30 02:36] VITALS: BP 138/90
[2016-11-30] MEDS ORDERED: KETOROLAC 30 MG/ML VIAL IVP ONE (03:00)
--- NOTE | 2016-11-30 08:24 | Diagnostic Imaging Report ---
INDICATION: Fever and weakness. COMPARISON: 08/25/2016. FINDINGS: 2 views of the chest are obtained. Heart size is normal. The pulmonary vessels appear unremarkable. Thoracic aorta is tortuous but unchanged. There is no pneumothorax, mediastinal widening, or pleural fluid demonstrated. There are findings suggestive of COPD. The lungs are otherwise clear. No focal pneumonia is suspected. There are degenerative changes in the spine. IMPRESSION: No radiographic evidence of an acute cardiopulmonary abnormality. No significant interval change from the prior study. Dictated by: Dictated on workstation # [id number]
== END 2016-11-30 02:36 | disposition home or self-care (01) ==
LOC: EDUNIT# 23:04 → ER 23:07
DX: R19.7 Diarrhea, unspecified (principal); R10.84 Generalized abdominal pain; R50.9 Fever, unspecified; R11.0 Nausea; R07.89 Other chest pain; F31.9 Bipolar disorder, unspecified; F41.9 Anxiety disorder, unspecified; E03.9 Hypothyroidism, unspecified; G43.909 Migraine, unspecified, not intractable, without status migrainosus; I48.91 Unspecified atrial fibrillation; I25.10 Atherosclerotic heart disease of native coronary artery without angina pectoris; I25.2 Old myocardial infarction; E78.00 Pure hypercholesterolemia, unspecified; I10 Essential (primary) hypertension; J44.9 Chronic obstructive pulmonary disease, unspecified; Z90.49 Acquired absence of other specified parts of digestive tract; Z85.828 Personal history of other malignant neoplasm of skin; Z79.82 Long term (current) use of aspirin; Z90.710 Acquired absence of both cervix and uterus; Z98.51 Tubal ligation status; Z79.01 Long term (current) use of anticoagulants
CPT/HCPCS: 36415; 71020; 80053; 81000; 83690; 83735; 84484; 85025; 93005

== ENCOUNTER 2017-01-12 15:43 | Emergency (ER) | payer MEDICARE, MEDICAID ==
[~2017-01-12] VITALS: Ht 177.8 cm; Wt 133.8 kg
[2017-01-12] MEDS ORDERED: RX-NITROGLYCERIN 0.4 MG TAB BTL 25'S SL PRN (16:00)
[2017-01-12] MEDS ORDERED: ASPIRIN 81 MG CHEW (CHILDREN'S ASA) PO ONE (16:00)
[2017-01-12 16:06] LABS: BASOPHILS % (AUTO) 0 % (0-10); EOSINOPHILS # (AUTO) 0.3 10^3/uL (0.0-0.3); EOSINOPHILS % (AUTO) 3 % (0-10); LYMPHOCYTES % (AUTO) 24 % (12-44); MEAN CORPUSCULAR HEMOGLOBIN 30 PG (25-34); MEAN CORPUSCULAR HGB CONC 33 G/DL (32-36); MEAN CORPUSCULAR VOLUME 91 FL (80-99); MEAN PLATELET VOLUME 9.7 FL (7.4-10.4); MONOCYTES # (AUTO) 0.7 X 10^3 (0.0-1.0); MONOCYTES % (AUTO) 8 % (0-12); NEUTROPHILS # (AUTO) 5.5 X 10^3 (1.8-7.8); NEUTROPHILS % (AUTO) 65 % (42-75); PLATELET COUNT 212 10^3/uL (130-400); RED BLOOD COUNT 4.36 10^6/uL (4.35-5.85); RED CELL DISTRIBUTION WIDTH 13.7 % (10.0-14.5); WHITE BLOOD COUNT 8.5 10^3/uL (4.3-11.0)
--- NOTE | 2017-01-12 16:19 | Diagnostic Imaging Report ---
PA and lateral views of the chest. INDICATION: Difficulty breathing. Chest pain. FINDINGS: The lungs are clear. Slight prominence of the interstitial markings is seen similar to 11/30/2016. The heart size is borderline in size. No effusion or pneumothorax. The mediastinum and rossy appear unremarkable. IMPRESSION: No focal infiltrates. Dictated by: Dictated on workstation # [id number]
[2017-01-12 16:22] LABS: ALANINE AMINOTRANSFERASE 16 U/L (0-55); ANION GAP 11 MMOL/L (5-14); ASPARTATE AMINO TRANSFERASE 18 U/L (5-34); BILIRUBIN,TOTAL 0.4 MG/DL (0.1-1.0); BLOOD UREA NITROGEN 12 MG/DL (7-18); BUN/CREATININE RATIO 13; CALCIUM 8.7 MG/DL (8.5-10.1); CARBON DIOXIDE 27 MMOL/L (21-32); CHLORIDE 101 MMOL/L (98-107); CREATININE SERUM 0.89 MG/DL (0.60-1.30); GFR ESTIMATED > 60; GLUCOSE 96 MG/DL (70-105); POTASSIUM 3.5 MMOL/L (3.6-5.0); SODIUM 139 MMOL/L (135-145)
[2017-01-12 16:28] LABS: TROPONIN I < 0.30 NG/ML (<0.30)
--- NOTE | 2017-01-12 16:33 | ED Chest Pain ---
General Chief Complaint: Chest Pain Stated Complaint: TROUBLE BREATHING;HEAVINESS IN CHEST Source: patient Exam Limitations: no limitations History of Present Illness Time seen by provider: 16:36 Initial Comments To ER with reports of trouble breathing and heaviness in her chest. She also reports that she was diaphoretic. 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 Pain persisted constantly throughout the day and she called Dr. Mullen who referred her to the emergency room this afternoon. She had a clean heart catheter in 2010 a normal stress test in 2015. Her pain was relieved with one nitroglycerin upon arrival here. There are no EKG changes. She states that she has been getting a lot of acid reflux lately. 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 NTG SL RECRUITING COORDINATOR: No Associated Symptoms: diaphoresis, No nausea/vomiting Allergies and Home Medications Allergies Coded Allergies: No Known Drug Allergies (Verified , 04/02/15) Home Medications Albuterol Sulfate/Ipratropium 3 Ml Solution, 3 ML IH Q4H PRN for SHORTNESS OF BREATH, (Reported) Apixaban 5 Mg Tablet, 5 MG PO BID, (Reported) Aspirin 81 Mg Tablet.dr, 81 MG PO DAILY, (Reported) Citalopram Hydrobromide 40 Mg Tablet, 40 MG PO DAILY, (Reported) Cyclobenzaprine HCl 10 Mg Tablet, 10 MG PO TID PRN for MUSCLE SPASMS, (Reported) Furosemide 40 Mg Tablet, 40 MG PO DAILY, (Reported) Levothyroxine Sodium 25 Mcg Tablet, 25 MCG PO DAILY, (Reported) Meclizine HCl 25 Mg Tablet, 25 MG PO TID PRN for DIZZINESS, (Reported) Metoprolol Tartrate 50 Mg Tablet, 50 MG PO BID, (Reported) Multivit-Min/FA/Lycopene/Lut 1 Each Tablet, 1 TAB PO DAILY, (Reported) Potassium Chloride 20 Meq Tab.er.prt, 20 MEQ PO DAILY, (Reported) Prednisone 20 Mg Tab, 20 MG PO UD, #13 Prescribed by: SANDRITA ALVARADO on 06/16/15 4518 Simvastatin 20 Mg Tablet, 20 MG PO HS, (Reported) Review of Systems Constitutional: see HPI EENTM: No Symptoms Reported Respiratory: See HPI, Shortness of Air Cardiovascular: Chest Pain Gastrointestinal: See HPI Genitourinary: No Symptoms Reported Musculoskeletal: no symptoms reported Skin: no symptoms reported Psychiatric/Neurological: No Symptoms Reported Endocrine: No Symptoms Reported Hematologic/Lymphatic: No Symptoms Reported Past Pnkzvhz-Bdipks-Dxvmbo Hx Patient Social History Alcohol Use: Denies Use Recreational Drug Use: No Smoking Status: Never a Smoker 2nd Hand Smoke Exposure: No Recent Foreign Travel: No Contact w/Someone Who Travel: No Recent Hopitalizations: No (for surgery, pneumonia, chest pain) Immunizations Up To Date Tetanus Booster (TDap): Unknown PED Vaccines UTD: No Date of Pneumonia Vaccine: Apr 26, 2012 Date of Influenza Vaccine: Feb 24, 2015 Seasonal Allergies Seasonal Allergies: No Surgeries History of Surgeries: Yes (BILATERAL LEG VEIN STRIPPING ; MULTIPLE CARDIAC CATHS; LEFT WRIST REPAIR) Surgeries: Appendectomy, Cardiac, Ear Surgery, Hysterectomy, Orthopedic, Tubal Ligation, Vascular Surgery Respiratory History of Respiratory Disorde: Yes Respiratory Disorders: Asthma, Pneumonia, Chronic Bronchitis, Sleep Apnea, COPD Currently Using CPAP: No Currently Using BIPAP: No Cardiovascular History of Cardiac Disorders: Yes ([place] 2004; VARICOSE VEINS) Cardiac Disorders: Atrial Fibrillation, Coronary Artery Disease, Heart Attack, High Cholesterol, Hypertension, Irregular Heartbeat, Peripheral Vascular Neurological History of Neurological Disord: Yes Neurological Disorders: Headaches /Migraines 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 System Hx 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 Disorders: No Sexually Transmitted Disease: No HIV/AIDS: No Female 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, 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 Genitourinary History of Genitourinary Disor: No Gastrointestinal History of Gastrointestinal Di: No Musculoskeletal History of Musculoskeletal Dis: Yes ("PLATE IN LEFT WRIST"--NARCOTIC DEPENDENT) Musculoskeletal Disorders: Arthritis, Chronic Back Pain, Fractures Endocrine History of Endocrine Disorders: Yes Endocrine Disorders: Hypothyroidsim HEENT Loss of Vision: Denies Hearing Impairment: Denies Cancer History of Cancer: No Psychosocial History of Psychiatric Problem: Yes Behavioral Health Disorders: Anxiety, Bipolar, Depression Integumentary History of Skin or Integumenta: No Blood Transfusions History of Blood Disorders: No Adverse Reaction to a Blood Tr: No Family Medical History Family Medial History: Cancer 03 MOTHER, Onset:60 years & older son, Onset:10's - 15 Dementia 03 MOTHER, Onset:60 years & older Family history: Alzheimer's disease 03 MOTHER, Onset:60 years & older Family history: Hypertension 09 BROTHER, Onset:30's - 40 Family history: Thyroid disorder daughter, Onset:20's - 25 History of - respiratory disease 09 BROTHER, Onset: Physical Exam Vital Signs Vital Sign - Last 12Hours 01/12/17 15:48 Temp 98.0 Pulse 60 Resp 18 B/P (MAP) 162/78 O2 Delivery Room Air Capillary Refill : General Appearance: No Apparent Distress, WD/WN HEENT: PERRL/EOMI, TMs Normal Neck: Full Range of Motion, Normal Inspection Respiratory: Normal Breath Sounds, No Accessory Muscle Use, No Respiratory Distress Cardiovascular: Regular Rate, Rhythm, Normal Peripheral Pulses Gastrointestinal: Non Tender, Soft Extremity: Normal Capillary Refill, Normal Inspection Neurologic/Psychiatric: Alert, Oriented x3, No Motor/Sensory Deficits Skin: Normal Color, Warm/Dry Progress/Results/Core Measures Results/Orders Lab Results Laboratory Tests Test 01/12/17 15:45 Range/Units White Blood Count 8.5 4.3-11.0 10^3/uL Red Blood Count 4.36 4.35-5.85 10^6/uL Hemoglobin 13.1 11.5-16.0 G/DL Hematocrit 40 35-52 % Mean Corpuscular Volume 91 80-99 FL Mean Corpuscular Hemoglobin 30 25-34 PG Mean Corpuscular Hemoglobin Concent 33 32-36 G/DL Red Cell Distribution Width 13.7 10.0-14.5 % Platelet Count 212 130-400 10^3/uL Mean Platelet Volume 9.7 7.4-10.4 FL Neutrophils (%) (Auto) 65 42-75 % Lymphocytes (%) (Auto) 24 12-44 % Monocytes (%) (Auto) 8 0-12 % Eosinophils (%) (Auto) 3 0-10 % Basophils (%) (Auto) 0 0-10 % Neutrophils # (Auto) 5.5 1.8-7.8 X 10^3 Lymphocytes # (Auto) 2.0 1.0-4.0 X 10^3 Monocytes # (Auto) 0.7 0.0-1.0 X 10^3 Eosinophils # (Auto) 0.3 0.0-0.3 10^3/uL Basophils # (Auto) 0.0 0.0-0.1 10^3/uL D-Dimer 0.40 0.00-0.49 UG/ML Sodium Level 139 135-145 MMOL/L Potassium Level 3.5 L 3.6-5.0 MMOL/L Chloride Level 101 98-107 MMOL/L Carbon Dioxide Level 27 21-32 MMOL/L Anion Gap 11 5-14 MMOL/L Blood Urea Nitrogen 12 7-18 MG/DL Creatinine 0.89 0.60-1.30 MG/DL Estimat Glomerular Filtration Rate > 60 BUN/Creatinine Ratio 13 Glucose Level 96 70-105 MG/DL Calcium Level 8.7 8.5-10.1 MG/DL Total Bilirubin 0.4 0.1-1.0 MG/DL Aspartate Amino Transf (AST/SGOT) 18 5-34 U/L Alanine Aminotransferase (ALT/SGPT) 16 0-55 U/L Alkaline Phosphatase 102 40-136 U/L Troponin I < 0.30 <0.30 NG/ML B-Type Natriuretic Peptide 189.9 H <100.0 PG/ML Total Protein 7.0 6.4-8.2 GM/DL Albumin 4.0 3.2-4.5 GM/DL My Orders Orders - JONNATHAN MALLOY [employer] Cbc With Automated Diff (01/12/17 15:56) Troponin I (01/12/17 15:56) Comprehensive Metabolic Panel (01/12/17 15:56) Fibrin Degradation Products (01/12/17 15:56) Saline Lock/Iv-Start (01/12/17 15:56) Chest Pa/Lat (2 View) (01/12/17 15:56) BNP (01/12/17 15:56) Aspirin Chewable Tablet (Baby Aspirin Ch (01/12/17 16:00) Rx-Nitroglycerin Sl Tabs (Rx-Nitrostat S (01/12/17 16:00) Medications Given in ED Current Medications Medications Dose Ordered Sig/Brianna Route Start Time Stop Time Status Last Admin Dose Admin Aspirin 324 mg ONCE ONCE PO 01/12/17 16:00 01/12/17 16:01 DC 01/12/17 16:19 324 MG Nitroglycerin 0.4 mg PRN PRN SL 01/12/17 16:00 01/12/17 16:19 0.4 MG Vital Signs/I&O Vital Sign - Last 12Hours 01/12/17 15:48 Temp 98.0 Pulse 60 Resp 18 B/P (MAP) 162/78 O2 Delivery Room Air Diagnostic Imaging Diagonstic Imaging: Xray Plain Films/CT/US/NM/MRI: chest Comments NAME: PEYMAN MENDOZA [facility] REC#: [id number] PT STATUS: REG ER : 1955 PHYSICIAN: JONNATHAN MALLOY APRN ADMIT DATE: 01/12/17/ER Draft Date of Exam:01/12/17 CHEST PA/LAT (2 VIEW) PA and lateral views of the chest. INDICATION: Difficulty breathing. Chest pain. FINDINGS: The lungs are clear. Slight prominence of the interstitial markings is seen similar to 11/30/2016. The heart size is borderline in size. No effusion or pneumothorax. The mediastinum and rossy appear unremarkable. IMPRESSION: No focal infiltrates. Dictated on workstation # [id number] Dict: 01/12/17 1614 Trans: 01/12/17 1619 [id number] Interpreted by: BIJAL SMITH MD Electronically signed by: Departure Impression Impression: Primary Impression: Chest pain Additional Impression: Gastroesophageal reflux disease Disposition: HOME, SELF-CARE Condition: Stable (All) Departure-Patient Inst. Decision time for Depature: 16:37 Referrals: SAIDA HAMEED MD (PCP/Family) Primary Care Physician Patient Instructions: Chest Pain That Is Not Caused by the Heart (DC) Add. Discharge Instructions: 1. Medication as directed 2. Follow-up with doctor next week 3. Return to ER for any worsening All discharge instructions reviewed with patient and/or family. Voiced understanding. Scripts Famotidine (Pepcid) 20 Mg Tablet 20 MG PO BID, #14 TAB Prov: JONNATHAN MALLOY APRN 01/12/17 JONNATHAN MALLOY APRN Jan 12, 2017 16:33
[2017-01-12] MEDS ORDERED: FAMO-119 PO (16:54)
[2017-01-12 17:04] VITALS: BP 152/94
[2017-01-12 17:12] VITALS: BP 152/94
== END 2017-01-12 17:08 | disposition home or self-care (01) ==
LOC: EDUNIT# 15:43 → ER 15:46
DX: K21.9 Gastro-esophageal reflux disease without esophagitis (principal); F41.9 Anxiety disorder, unspecified; F31.9 Bipolar disorder, unspecified; E03.9 Hypothyroidism, unspecified; J45.909 Unspecified asthma, uncomplicated; I10 Essential (primary) hypertension; I25.2 Old myocardial infarction; E78.00 Pure hypercholesterolemia, unspecified; I48.91 Unspecified atrial fibrillation; I25.10 Atherosclerotic heart disease of native coronary artery without angina pectoris; G43.909 Migraine, unspecified, not intractable, without status migrainosus; Z87.81 Personal history of (healed) traumatic fracture; Z90.710 Acquired absence of both cervix and uterus; Z98.51 Tubal ligation status; Z79.82 Long term (current) use of aspirin
CPT/HCPCS: 36415; 71020; 80053; 83880; 84484; 85025; 85379; 93005

== ENCOUNTER 2017-03-28 15:32 | Emergency (ER) | payer MEDICARE, MEDICAID ==
[~2017-03-28] VITALS: Ht 177.8 cm; Wt 136.1 kg
[~2017-03-28 15:32] MED LIST changes: +FAMO-119 PO
--- NOTE | 2017-03-28 16:42 | ED Lower Extremity ---
General Chief Complaint: Lower Extremity Stated Complaint: L LEG SWELLING/PAIN Nursing Triage Note: COMPLAINS OF PAIN BELOW KNEE ON THE POST SIDE X5 DAYS. Nursing Sepsis Screen: No Definite Risk Source: patient Exam Limitations: no limitations (SANDRITA ALVARADO MD) History of Present Illness Time seen by provider: 16:30 Initial Comments The patient is a 62-year-old white female known to me from previous visits. She reports that beginning about Wednesday she noted some discomfort in the popliteal space on the left leg. This has increased throughout the week. There was no sudden onset to this. She does not recall any misstep or injury. She thinks the leg to be slightly swollen. She takes anticoagulants for atrial fibrillation. Onset: last week Pain/Injury Location: left knee Method of Injury: unknown (SANDRITA ALVARADO MD) Allergies and Home Medications Allergies Coded Allergies: No Known Drug Allergies (Verified , 04/02/15) Home Medications Albuterol Sulfate/Ipratropium 3 Ml Solution, 3 ML IH Q4H PRN for SHORTNESS OF BREATH, (Reported) Apixaban 5 Mg Tablet, 5 MG PO BID, (Reported) Aspirin 81 Mg Tablet.dr, 81 MG PO DAILY, (Reported) Citalopram Hydrobromide 40 Mg Tablet, 40 MG PO DAILY, (Reported) Cyclobenzaprine HCl 10 Mg Tablet, 10 MG PO TID PRN for MUSCLE SPASMS, (Reported) Famotidine 20 Mg Tablet, 20 MG PO BID, #14 Prescribed by: JONNATHAN MALLOY on 01/12/17 1654 Furosemide 40 Mg Tablet, 40 MG PO DAILY, (Reported) Levothyroxine Sodium 25 Mcg Tablet, 25 MCG PO DAILY, (Reported) Meclizine HCl 25 Mg Tablet, 25 MG PO TID PRN for DIZZINESS, (Reported) Metoprolol Tartrate 50 Mg Tablet, 50 MG PO BID, (Reported) Multivit-Min/FA/Lycopene/Lut 1 Each Tablet, 1 TAB PO DAILY, (Reported) Potassium Chloride 20 Meq Tab.er.prt, 20 MEQ PO DAILY, (Reported) Prednisone 20 Mg Tab, 20 MG PO UD, #13 Prescribed by: SANDRITA ALVARADO on 06/16/15 1451 Simvastatin 20 Mg Tablet, 20 MG PO HS, (Reported) Constitutional: see HPI EENTM: no symptoms reported Respiratory: no symptoms reported Cardiovascular: palpitations Gastrointestinal: no symptoms reported Musculoskeletal: muscle pain Skin: no symptoms reported Psychiatric/Neurological: No Symptoms Reported (SANDRITA ALVARADO MD) Past Hnawbnb-Uywllv-Cbzjcd Hx Patient Social History Alcohol Use: Denies Use Recreational Drug Use: No Smoking Status: Never a Smoker 2nd Hand Smoke Exposure: No Recent Foreign Travel: No Contact w/Someone Who Travel: No Recent Infectious Disease Expo: No Recent Hopitalizations: No (SANDRITA ALVARADO MD) Immunizations Up To Date Tetanus Booster (TDap): Unknown PED Vaccines UTD: No Date of Pneumonia Vaccine: Apr 26, 2012 Date of Influenza Vaccine: Feb 24, 2015 (SANDRITA ALVARADO MD) Seasonal Allergies Seasonal Allergies: No (SANDRITA ALVARADO MD) Surgeries History of Surgeries: Yes (BILATERAL LEG VEIN STRIPPING ; MULTIPLE CARDIAC CATHS; LEFT WRIST REPAIR) Surgeries: Appendectomy, Cardiac, Ear Surgery, Hysterectomy, Orthopedic, Tubal Ligation, Vascular Surgery (SANDRITA ALVARADO MD) Respiratory History of Respiratory Disorde: Yes Respiratory Disorders: Asthma, Pneumonia, Chronic Bronchitis, Sleep Apnea, COPD Currently Using CPAP: No Currently Using BIPAP: No (SANDRITA ALVARADO MD) Cardiovascular History of Cardiac Disorders: Yes ([place] 2004; VARICOSE VEINS) Cardiac Disorders: Atrial Fibrillation, Coronary Artery Disease, Heart Attack, High Cholesterol, Hypertension, Irregular Heartbeat, Peripheral Vascular (SANDRITA ALVARADO MD) Neurological History of Neurological Disord: Yes Neurological Disorders: Headaches /Migraines (SANDRITA ALVARADO MD) 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 System Hx 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 Disorders: No Sexually Transmitted Disease: No HIV/AIDS: No Female 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, 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 (SANDRITA ALVARADO MD) Genitourinary History of Genitourinary Disor: No (SANDRITA ALVARADO MD) Gastrointestinal History of Gastrointestinal Di: No (SANDRITA ALVARADO MD) Musculoskeletal History of Musculoskeletal Dis: Yes ("PLATE IN LEFT WRIST"--NARCOTIC DEPENDENT) Musculoskeletal Disorders: Arthritis, Chronic Back Pain, Fractures (SANDRITA ALVARADO MD) Endocrine History of Endocrine Disorders: Yes Endocrine Disorders: Hypothyroidsim (SANDRITA ALVARADO MD) HEENT Loss of Vision: Denies Hearing Impairment: Denies (SANDRITA ALVARADO MD) Cancer History of Cancer: No (SANDRITA ALVARADO MD) Psychosocial History of Psychiatric Problem: Yes Behavioral Health Disorders: Anxiety, Bipolar, Depression (SANDRITA ALVARADO MD) Integumentary History of Skin or Integumenta: No (SANDRITA ALVARADO MD) Blood Transfusions History of Blood Disorders: No Adverse Reaction to a Blood Tr: No (SANDRITA ALVARADO MD) Family Medical History Family Medial History: Cancer 03 MOTHER, Onset:60 years & older son, Onset:10's - 15 Dementia 03 MOTHER, Onset:60 years & older Family history: Alzheimer's disease 03 MOTHER, Onset:60 years & older Family history: Hypertension 09 BROTHER, Onset:30's - 40 Family history: Thyroid disorder daughter, Onset:20's - 25 History of - respiratory disease 09 BROTHER, Onset:[place] (SANDRITA ALVARADO MD) Family Medial History: Cancer 03 MOTHER, Onset:60 years & older son, Onset:10's - 15 Dementia 03 MOTHER, Onset:60 years & older Family history: Alzheimer's disease 03 MOTHER, Onset:60 years & older Family history: Hypertension 09 BROTHER, Onset:30's - 40 Family history: Thyroid disorder daughter, Onset:20's - 25 History of - respiratory disease 09 BROTHER, Onset: (CARISSA ROMERO DO) Physical Exam Vital Signs Vital Sign - Last 12Hours 03/28/17 03/28/17 16:20 18:53 Temp 98.0 Pulse 64 Resp 18 B/P (MAP) 150/85 (106) Pulse Ox 97 O2 Delivery Room Air (CARISSA ROMERO DO) Vital Signs Capillary Refill : Less Than 3 Seconds (SANDRITA ALVARADO MD) General Appearance: WD/WN, no apparent distress HEENT: normal ENT inspection Neck: full range of motion Cardiovascular: irregularly irregular Respiratory: chest non-tender, lungs clear, normal breath sounds, no respiratory distress, no accessory muscle use Gastrointestinal: normal bowel sounds, non tender, soft, no organomegaly, no pulsatile mass Comments The left lower extremity has a normal appearance. The right calf is intact larger than the left. There is some tenderness to palpation in the popliteal space and proximal calf muscles. There is pain to dorsiflexion of the foot on the left but not on the right. (SANDRITA ALVARADO MD) Knees: left knee other (TENDERNESS TO UPPER MEDIAL ASPECT OF LEFT CALF, ALONG DISTRIBUTION OF SUPERFICIAL VAROCOSITIES, NO SURROUNDING ERYTHEMA/SKIN DISCOLORATION OR FLUCTUANCE. NO OBVIOUS CORDING NOTED. + WILTON'S. NO DISTAL SWELLING OF LEG. 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, no motor/sensory deficits, alert, normal mood/affect, oriented x 3 (CARISSA ROMERO DO) Progress/Results/Core Measures Results/Orders My Orders Orders - CARISSA ROMERO DO Aspirin Chewable Tablet (Baby Aspirin Ch (03/28/17 18:45) Aspirin Chewable Tablet (Baby Aspirin Ch (03/28/17 18:49) (CARISSA ROMERO DO) Medications Given in ED Current Medications Medications Dose Ordered Sig/Brianna Route Start Time Stop Time Status Last Admin Dose Admin Aspirin 324 mg ONCE ONCE PO 03/28/17 18:45 03/28/17 18:53 DC 03/28/17 18:52 324 MG (CARISSA ROMERO DO) Vital Signs/I&O Vital Sign - Last 12Hours 03/28/17 03/28/17 16:20 18:53 Temp 98.0 Pulse 64 78 Resp 18 18 B/P (MAP) 150/85 (106) Pulse Ox 97 97 O2 Delivery Room Air (CARISSA ROMERO DO) Blood Pressure Mean: 106 Progress Note : Progress Note 1814--ASSUMED CARE FROM DR. ALVARADO, ULTRASOUND REPORT PENDING (CARISSA ROMERO DO) Diagnostic Imaging Comments ULTRASOUND--FOCAL SUPERFICIAL THROMBUS IN VARICOSITIES 3 CM AND 2.4 CM IN SIZE. NO DEEP VEIN THROMBUS--PER RADIOLOGIST REPORT @ 1827 Reviewed: Reviewed by Me (CARISSA ROMERO DO) Departure Impression Impression: Primary Impression: Superficial thrombophlebitis of left leg Disposition: HOME, SELF-CARE Condition: Stable Departure-Patient Inst. Referrals: SAIDA HAMEED MD (PCP/Family) Primary Care Physician Patient Instructions: How to Prevent Blood Clots, How to Put On and Take Off Compression Stockings, Superficial Phlebitis Add. Discharge Instructions: MOIST HEAT TO SORE AREA AT 20 MINUTE INTERVALS ELEVATE LEG MUCH POSSIBLE WEAR THIGH HIGH COMPRESSION HOSE AT ALL TIMES TAKE 324 MG COATED ASPIRIN DAILY FOLLOW UP WITH YOUR DR THIS WEEK FOR FURTHER CARE All discharge instructions reviewed with patient and/or family. Voiced understanding. SANDRITA ALVARADO MD Mar 28, 2017 16:42 CARISSA ROMERO DO Mar 28, 2017 18:45
--- NOTE | 2017-03-28 18:21 | Diagnostic Imaging Report ---
PROCEDURE: US left lower extremity venous. TECHNIQUE: Multiple real-time grayscale images were obtained over the left lower extremity in various projections. Additional duplex Doppler and color Doppler images were also obtained. INDICATION: Left leg pain. FINDINGS: The left common femoral, femoral and popliteal veins demonstrate normal response to compression, augmentation and Valsalva. There are some focal areas of superficial thrombophlebitis in the posterior calf within some varicosities. There are no abnormal fluid collections or masses. IMPRESSION: 1. No evidence of deep venous thrombosis in the left lower extremity. 2. Two focal areas of focal superficial thrombophlebitis within some calf varicosities. These measure 3.0 cm and 2.4 cm, respectively. Dictated by: Dictated on workstation # [id number]
[2017-03-28] MEDS ORDERED: ASPIRIN 81 MG CHEW (CHILDREN'S ASA) PO ONE (18:45)
[2017-03-28] MEDS ORDERED: ASPIRIN 81 MG CHEW (CHILDREN'S ASA) ONE (18:49)
[2017-03-28 18:53] VITALS: BP 168/87
== END 2017-03-28 18:53 | disposition home or self-care (01) ==
LOC: EDUNIT# 15:32 → ER 15:34
DX: I80.02 Phlebitis and thrombophlebitis of superficial vessels of left lower extremity (principal); J44.9 Chronic obstructive pulmonary disease, unspecified; G47.33 Obstructive sleep apnea (adult) (pediatric); I25.2 Old myocardial infarction; I10 Essential (primary) hypertension; E78.00 Pure hypercholesterolemia, unspecified; I25.10 Atherosclerotic heart disease of native coronary artery without angina pectoris; I48.91 Unspecified atrial fibrillation; G43.909 Migraine, unspecified, not intractable, without status migrainosus; M19.90 Unspecified osteoarthritis, unspecified site; E03.9 Hypothyroidism, unspecified; F41.9 Anxiety disorder, unspecified; F31.9 Bipolar disorder, unspecified; Z87.09 Personal history of other diseases of the respiratory system; Z87.01 Personal history of pneumonia (recurrent); Z79.01 Long term (current) use of anticoagulants; Z79.82 Long term (current) use of aspirin; Z90.49 Acquired absence of other specified parts of digestive tract; Z90.710 Acquired absence of both cervix and uterus; Z98.51 Tubal ligation status
CPT/HCPCS: 99283

== ENCOUNTER → 2017-04-29 | Outpatient (CLI) | payer MEDICARE, MEDICAID ==
[~2017-04-29] MED LIST changes: +METO50TA15 PO; -METO50TA2 PO
--- NOTE | 2017-04-29 16:10 | Diagnostic Imaging Report ---
EXAMINATION: Lumbar spine at 03:47 p.m. INDICATION: Back pain. FINDINGS: AP, lateral, and spot lateral views were obtained. As noted on the previous CT lumbar spine exam of 10/13/2013, there is degenerative disc and bony disease throughout the lumbar spine. In the interval since the previous exam, a mild compression deformity of L1 has developed. I suspect this injury is long-standing in nature; however if there is clinical concern regarding an acute injury in this area, then MRI will be recommended. The other vertebral body heights are within normal limits. The intervertebral disc spaces are similar in appearance to the prior exam. There is no sign of a paraspinal mass. There is mild symmetrical sclerosis of the sacroiliac joints. 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 IMPRESSION: 1. The mild compression deformity of L1 which has developed in the interval since the prior study is probably chronic in nature. Additional considerations as above. 2. There is no acute bony abnormality noted. 3. There is degenerative disc and bony disease throughout the lumbar spine. 4. 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 Dictated by: Dictated on workstation # [id number]
== END ==
LOC: RAD 15:16
PROVIDERS: ATTEND Nurse Practitioner Family
DX: M51.36 Other intervertebral disc degeneration, lumbar region (principal); M95.9 Acquired deformity of musculoskeletal system, unspecified
CPT/HCPCS: 72100

== ENCOUNTER 2017-06-08 21:53 | Emergency (ER) | payer MEDICARE, MEDICAID ==
[~2017-06-08] VITALS: Ht 177.8 cm; Wt 136.1 kg
[2017-06-08] MEDS ORDERED: PHENYLEPHRINE 0.25% NASAL SPR (NEO-SYNEPHRINE) 15 ML NS ONE (21:59)
[2017-06-08 22:09] VITALS: BP 156/88
--- NOTE | 2017-06-08 22:10 | ED EENT ---
History of Present Illness General Chief Complaint: Nasal Problems Stated Complaint: NOSE BLEED FOR 45 MINUTES - BLOOD THINNERS Nursing Triage Note: LEFT NARE NOSE BLEED. Source: patient Exam Limitations: no limitations History of Present Illness Date Seen by Provider: Jun 08, 2017 Time Seen by Provider: 22:07 Initial Comments To ER with a left-sided nosebleed for about 45 minutes. She does not wear oxygen and denies any recent upper respiratory illnesses. She is on Eliquis. Timing/Duration: abrupt Severity: moderate Location: nose Associated Symptoms: cough Allergies and Home Medications Allergies Coded Allergies: No Known Drug Allergies (Verified , 04/02/15) Home Medications Albuterol Sulfate/Ipratropium 3 Ml Solution, 3 ML IH Q4H PRN for SHORTNESS OF BREATH, (Reported) Apixaban 5 Mg Tablet, 5 MG PO BID, (Reported) Aspirin 81 Mg Tablet.dr, 81 MG PO DAILY, (Reported) Citalopram Hydrobromide 40 Mg Tablet, 40 MG PO DAILY, (Reported) Cyclobenzaprine HCl 10 Mg Tablet, 10 MG PO TID PRN for MUSCLE SPASMS, (Reported) Famotidine 20 Mg Tablet, 20 MG PO BID, #14 Prescribed by: JONNATHAN MALLOY on 01/12/17 1654 Furosemide 40 Mg Tablet, 40 MG PO DAILY, (Reported) Levothyroxine Sodium 25 Mcg Tablet, 25 MCG PO DAILY, (Reported) Meclizine HCl 25 Mg Tablet, 25 MG PO TID PRN for DIZZINESS, (Reported) Metoprolol Tartrate 50 Mg Tablet, 50 MG PO BID, (Reported) Multivit-Min/FA/Lycopene/Lut 1 Each Tablet, 1 TAB PO DAILY, (Reported) Potassium Chloride 20 Meq Tab.er.prt, 20 MEQ PO DAILY, (Reported) Prednisone 20 Mg Tab, 20 MG PO UD, #13 Prescribed by: SANDRITA ALVARADO on 06/16/15 1451 Simvastatin 20 Mg Tablet, 20 MG PO HS, (Reported) Review of Systems Constitutional: see HPI Eyes: No Symptoms Reported Ears: No Symptoms Reported Nose: see HPI, epistaxis Mouth: no symptoms reported Throat: no symptoms reported Respiratory: no symptoms reported Cardiovascular: no symptoms reported Past Ueesqbp-Iesprc-Lksrhm Hx Patient Social History Alcohol Use: Denies Use Recreational Drug Use: No Smoking Status: Never a Smoker 2nd Hand Smoke Exposure: No Recent Foreign Travel: No Contact w/Someone Who Travel: No Recent Infectious Disease Expo: No Recent Hopitalizations: No Immunizations Up To Date Tetanus Booster (TDap): Unknown PED Vaccines UTD: No Date of Pneumonia Vaccine: Apr 26, 2012 Date of Influenza Vaccine: Feb 24, 2015 Seasonal Allergies Seasonal Allergies: No Surgeries History of Surgeries: Yes (BILATERAL LEG VEIN STRIPPING ; MULTIPLE CARDIAC CATHS; LEFT WRIST REPAIR) Surgeries: Appendectomy, Cardiac, Ear Surgery, Hysterectomy, Orthopedic, Tubal Ligation, Vascular Surgery Respiratory History of Respiratory Disorde: Yes Respiratory Disorders: Asthma, Pneumonia, Chronic Bronchitis, Sleep Apnea, COPD Currently Using CPAP: No Currently Using BIPAP: No Cardiovascular History of Cardiac Disorders: Yes ([place] 2004; VARICOSE VEINS) Cardiac Disorders: Atrial Fibrillation, Coronary Artery Disease, Heart Attack, High Cholesterol, Hypertension, Irregular Heartbeat, Peripheral Vascular Neurological History of Neurological Disord: Yes Neurological Disorders: Headaches /Migraines 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 System Hx 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 Disorders: No Sexually Transmitted Disease: No HIV/AIDS: No Female 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, 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 Genitourinary History of Genitourinary Disor: No Gastrointestinal History of Gastrointestinal Di: No Musculoskeletal History of Musculoskeletal Dis: Yes ("PLATE IN LEFT WRIST"--NARCOTIC DEPENDENT) Musculoskeletal Disorders: Arthritis, Chronic Back Pain, Fractures Endocrine History of Endocrine Disorders: Yes Endocrine Disorders: Hypothyroidsim HEENT Loss of Vision: Denies Hearing Impairment: Denies Cancer History of Cancer: No Psychosocial History of Psychiatric Problem: Yes Behavioral Health Disorders: Anxiety, Bipolar, Depression Integumentary History of Skin or Integumenta: No Blood Transfusions History of Blood Disorders: No Adverse Reaction to a Blood Tr: No Family Medical History Family Medial History: Cancer 03 MOTHER, Onset:60 years & older son, Onset:10's - 15 Dementia 03 MOTHER, Onset:60 years & older Family history: Alzheimer's disease 03 MOTHER, Onset:60 years & older Family history: Hypertension 09 BROTHER, Onset:30's - 40 Family history: Thyroid disorder daughter, Onset:20's - 25 History of - respiratory disease 09 BROTHER, Onset:[place] Physical Exam Vital Signs Vital Signs - First Documented 06/08/17 21:59 Temp 97.7 Pulse 73 Resp 18 B/P (MAP) 170/109 (129) Pulse Ox 94 O2 Delivery Room Air General Appearance: WD/WN, no apparent distress Eyes: bilateral eye normal inspection, bilateral eye PERRL, bilateral eye EOMI Ears: bilateral ear auricle normal, bilateral ear canal normal, bilateral ear TM normal Nose: other Mouth/Throat: other (minor oozing of blood from the inferior anterior portion of the nasal septum on the left. Clotted blood in the oropharynx but no active bleeding) Neck: non-tender, full range of motion Respiratory: normal breath sounds, no respiratory distress, no accessory muscle use Neurologic/Psychiatric: alert, normal mood/affect, oriented x 3 Skin: normal color, warm/dry Nasal : Nasal Location: Left Clots Cleared from Nasal: Wall Suction Nasal Drops Instilled: David-Synephrine Inspection with: Otoscope, Nasal Speculum Nasal Procedures: Merocel Sponge Progress Initially a Merocel sponge was placed and saturated with David-Synephrine. This was left in place for 15 minutes with a nose clamp in place. This was removed and the nose was reinspected. It was easier to see the source of bleeding at the inferior aspect of the nasal septum on the left side a bit more posterior than originally believed but still easily reachable. This was then cauterized with silver nitrate sticks. 2248-despite attempted cautery with silver nitrate there was a persistent oozing of blood so a Merocel sponge was replaced and saturated with tranexemic acid topically. At this time, there is no blood in oropharynx nor any blood from the nostrils. She complains of pain swelling over hydrocodone. I will turn the case over to Dr. Bonilla for further care Progress/Results/Core Measures Results/Orders My Orders Orders - JONNATHAN MALLOY APRN Phenylephrine 0.25% Nasal Spra (David-Syne (06/08/17 22:15) Clonidine Tablet (Catapres Tablet) (06/08/17 22:15) Tranexamic Acid Injection (Cyklokapron I (06/08/17 22:43) Medications Given in ED Current Medications Medications Dose Ordered Sig/Brianna Route Start Time Stop Time Status Last Admin Dose Admin Phenylephrine HCl 15 ml STK-MED ONCE NS 06/08/17 21:59 06/08/17 22:01 DC 06/08/17 22:04 15 ML Vital Signs/I&O Vital Sign - Last 12Hours 06/08/17 06/08/17 21:59 22:09 Temp 97.7 Pulse 73 Resp 18 B/P (MAP) 170/109 (129) 156/88 (110) Pulse Ox 94 O2 Delivery Room Air Blood Pressure Mean: 129 Departure Impression Impression: Primary Impression: Epistaxis Disposition: 01 HOME, SELF-CARE Condition: Stable Departure-Patient Inst. Decision time for Depature: 22:10 Referrals: SAIDA HAMEED MD (PCP/Family) Primary Care Physician Patient Instructions: Nosebleeds (DC) Add. Discharge Instructions: 1. If the nose begins to bleed again, and she does tightly applying direct pressure for about 15 minutes. If this fails to improve the bleeding return to the emergency room All discharge instructions reviewed with patient and/or family. Voiced understanding. JONNATHAN MALLOY APRN Jun 08, 2017 22:10
[2017-06-08] MEDS ORDERED: PHENYLEPHRINE 0.25% NASAL SPR (NEO-SYNEPHRINE) 15 ML NS PRN (22:15)
[2017-06-08] MEDS ORDERED: cloNIDine 0.1 MG (CATAPRES) TAB PO ONE (22:15)
[2017-06-08] MEDS ORDERED: TRANEXAMIC ACID 100 MG/ML 10 ML INJECTION IV ONE (22:43)
[2017-06-08] MEDS ORDERED: HYDROcodone/APAP 5 MG/325 MG (LORTAB) TAB PO ONE (23:00)
[2017-06-08 23:24] VITALS: BP 150/78
[2017-06-09] MEDS ORDERED: ACHD5005 PO (16:49)
[2017-06-09] MEDS ORDERED: AMOX1TAB12 PO (16:50)
--- OUTSIDE RECORDS SUMMARY | 2017-06-11 08:16 | XMS REPORT | Continuity of Care Document ---
Author Author [facility] Organization [facility] Address Unknown Phone Unavailable Allergies Active Description Code Type Severity Reaction Onset Reported/Identified Relationship to Patient Clinical Status Yes NKDA NKDA Mild N/ A 10/13/2008 Yes No Known Drug Allergies [id number] Drug Allergy Unknown N/A 04/02/2015 Medications There is no data. Problems Date Dx Coded Attending Type Code Diagnosis Diagnosed By 08/13/2009 Ot 427.31 08/13/2009 Ot V58.61 09/12/2009 Ot 427.31 09/12/2009 Ot V58.61 09/20/2009 Ot 715.36 09/20/2009 Ot 924.11 09/20/2009 Ot 959.7 09/20/2009 Ot E000.8 09/20/2009 Ot E030 09/20/2009 Ot E849.6 09/20/2009 Ot E888.9 09/27/2009 Ot 924.10 09/27/2009 Ot 959.7 09/27/2009 Ot E000.8 09/27/2009 Ot E030 09/27/2009 Ot E849.0 09/27/2009 Ot E888.9 10/28/2009 Ot 401.9 10/28/2009 Ot 427.31 10/28/2009 Ot 490 10/28/2009 Ot 786.05 10/28/2009 Ot 786.2 10/28/2009 Ot V58.61 10/28/2009 Ot V58.69 11/14/2009 Ot 715.95 11/14/2009 Ot 789.04 12/24/2009 Ot 427.31 12/24/2009 Ot V58.61 01/31/2010 Ot 244.9 HYPOTHYROIDISM NOS 01/31/2010 Ot 272.4 HYPERLIPIDEMIA NEC/NOS 01/31/2010 Ot 278.01 MORBID OBESITY 01/31/2010 Ot 311 DEPRESSIVE DISORDER NEC 01/31/2010 Ot 401.9 HYPERTENSION NOS 01/31/2010 Ot 427.31 ATRIAL FIBRILLATION 01/31/2010 Ot 786.09 RESPIRATORY ABNORM NEC 01/31/2010 Ot 786.59 CHEST PAIN NEC 01/31/2010 Ot 791.9 ABN URINE FINDINGS NEC 01/31/2010 Ot V58.61 ANTICOAGULANTS,LT,CURRENT USE 01/31/2010 Ot V58.69 OTH MED,LT, CURRENT USE 01/31/2010 Ot V85.41 BODY MASS INDEX 40.0-44.9, ADULT 05/02/2010 Ot 244.9 05/02/2010 Ot 272.4 05/02/2010 Ot 278.00 05/02/2010 Ot 311 05/02/2010 Ot 401.9 05/02/2010 Ot 414.01 05/02/2010 Ot 427.31 05/02/2010 Ot 465.9 05/02/2010 Ot 491.21 05/02/2010 Ot V58.61 05/02/2010 Ot V85.38 05/11/2010 Ot 427.31 05/11/2010 Ot 478.19 05/11/2010 Ot 780.4 05/11/2010 Ot 784.0 05/11/2010 Ot 787.02 05/11/2010 Ot V58.61 09/29/2010 Ot 244.9 HYPOTHYROIDISM NOS 09/29/2010 Ot 272.4 HYPERLIPIDEMIA NEC/NOS 09/29/2010 Ot 278.00 OBESITY, NOS 09/29/2010 Ot 296.80 BIPOLAR DISORDER, UNSPECIFIED 09/29/2010 Ot 401.9 HYPERTENSION NOS 09/29/2010 Ot 412 OLD MYOCARDIAL INFARCT 09/29/2010 Ot 414.01 CORONARY ATHEROSCLEROSIS OF [place] CORON 09/29/2010 Ot 427.31 ATRIAL FIBRILLATION 09/29/2010 Ot 496 CHR AIRWAY OBSTRUCT NEC 09/29/2010 Ot 786.50 CHEST PAIN NOS 09/29/2010 Ot V17.49 FAMILY HISTORY OF OTHER CARDIOVASCULAR D 09/29/2010 Ot V58.61 ANTICOAGULANTS,LT,CURRENT USE 09/29/2010 Ot V58.69 OTH MED,LT, CURRENT USE 09/29/2010 Ot V85.42 BODY MASS INDEX 45.0-49.9, ADULT 12/02/2010 Ot 272.4 HYPERLIPIDEMIA NEC/NOS 12/02/2010 Ot 401.9 HYPERTENSION NOS 12/02/2010 Ot 496 CHR AIRWAY OBSTRUCT NEC 12/02/2010 Ot 780.4 DIZZINESS AND GIDDINESS 12/02/2010 Ot 786.52 PAINFUL RESPIRATION 12/02/2010 Ot 786.59 CHEST PAIN NEC 12/02/2010 Ot V58.61 ANTICOAGULANTS,LT,CURRENT USE 12/02/2010 Ot V58.69 OTH MED,LT, CURRENT USE 01/10/2011 Ot 372.30 CONJUNCTIVITIS NOS 01/10/2011 Ot 379.91 PAIN IN OR AROUND EYE 01/25/2011 Ot 491.21 OBSTR CHRONIC BRONCHITIS, W (ACUTE) EXAC 01/25/2011 Ot 786.05 SHORTNESS OF BREATH 03/24/2011 Ot 412 OLD MYOCARDIAL INFARCT 03/24/2011 Ot 414.00 CORON ATHEROSCLER NOS TYPE VESSEL, NATIV 03/24/2011 Ot 454.9 ASYMPTOMATIC VARICOSE VEINS 03/24/2011 Ot 729.5 PAIN IN LIMB 03/24/2011 Ot V58.61 ANTICOAGULANTS,LT,CURRENT USE 03/24/2011 Ot V58.69 OTH MED,LT, CURRENT USE 08/23/2011 Ot 244.9 HYPOTHYROIDISM NOS 08/23/2011 Ot 272.4 HYPERLIPIDEMIA NEC/NOS 08/23/2011 Ot 278.00 OBESITY, NOS 08/23/2011 Ot 300.00 ANXIETY STATE NOS 08/23/2011 Ot 311 DEPRESSIVE DISORDER NEC 08/23/2011 Ot 327.23 OBSTRUCTIVE SLEEP APNEA (ADULT) (PEDIATR 08/23/2011 Ot 401.9 HYPERTENSION NOS 08/23/2011 Ot 427.31 ATRIAL FIBRILLATION 08/23/2011 Ot 496 CHR AIRWAY OBSTRUCT NEC 08/23/2011 Ot 716.90 ARTHROPATHY NOS-UNSPEC 08/23/2011 Ot 786.59 CHEST PAIN NEC 08/23/2011 Ot V12.71 PERSONAL HISTORY OF PEPTIC ULCER DISEASE 08/23/2011 Ot V45.77 ACQRD ABSENCE OF GENITAL ORGANS 08/23/2011 Ot V85.41 BODY MASS INDEX 40.0-44.9, ADULT 10/22/2011 Ot 173.31 BASAL CELL CARCINOMA OF SKIN OF OTH UN 10/22/2011 Ot 706.2 SEBACEOUS CYST 10/22/2011 Ot V58.61 ANTICOAGULANTS,LT,CURRENT USE 11/13/2011 Ot 491.21 OBSTR CHRONIC BRONCHITIS, W (ACUTE) EXAC 11/13/2011 Ot 786.05 SHORTNESS OF BREATH 12/02/2011 Ot V58.61 ANTICOAGULANTS,LT,CURRENT USE 12/02/2011 Ot V58.83 ENCOUNTER FOR THERAPEUTIC DRUG MONITORIN 02/25/2012 Ot 296.80 BIPOLAR DISORDER, UNSPECIFIED 02/25/2012 Ot 401.9 HYPERTENSION NOS 02/25/2012 Ot 490 BRONCHITIS NOS 06/16/2012 Ot 244.9 HYPOTHYROIDISM NOS 06/16/2012 Ot 272.4 HYPERLIPIDEMIA NEC/NOS 06/16/2012 Ot 278.00 OBESITY, NOS 06/16/2012 Ot 311 DEPRESSIVE DISORDER NEC 06/16/2012 Ot 401.9 HYPERTENSION NOS 06/16/2012 Ot 412 OLD MYOCARDIAL INFARCT 06/16/2012 Ot 491.21 OBSTR CHRONIC BRONCHITIS, W (ACUTE) EXAC 06/16/2012 Ot V03.82 PROPHYLACTIC VACC AGAINST STREPTOCOCCUS 06/16/2012 Ot V12.51 HX-VENOUS THROMBOSIS EMBOLISM 06/16/2012 Ot V15.82 HISTORY OF TOBACCO USE 06/16/2012 Ot V58.61 ANTICOAGULANTS,LT,CURRENT USE 06/16/2012 Ot V85.41 BODY MASS INDEX 40.0-44.9, ADULT 06/18/2012 Ot 780.4 DIZZINESS AND GIDDINESS 06/18/2012 Ot E942.9 ADV EFF CARDIOVASC NEC 06/18/2012 Ot V58.61 ANTICOAGULANTS,LT,CURRENT USE 06/18/2012 Ot V58.69 OTH MED,LT, CURRENT USE 11/30/2012 ZHANE LU, JAMES Rodríguez Ot 496 CHR AIRWAY OBSTRUCT NEC 11/30/2012 JAMES PHELAN MD Ot 784.0 HEADACHE 11/30/2012 JAMES PHELAN MD Ot V58.61 ANTICOAGULANTS,LT,CURRENT USE 12/27/2012 JONNATHAN MALLOY APRN Ot 723.4 BRACHIAL NEURITIS NOS 12/27/2012 JONNATHAN MALLOY APRN Ot 728.85 SPASM OF MUSCLE 12/27/2012 JONNATHAN MALLOY APRN Ot 782.0 SKIN SENSATION DISTURB 02/13/2013 JONNATHAN MALLOY APRN Ot 715.95 OSTEOARTHROS NOS-PELVIS 02/13/2013 JONNATHAN MALLOY APRN Ot 729.5 PAIN IN LIMB 03/01/2013 SAIDA HAMEED MD Ot 244.9 HYPOTHYROIDISM NOS 03/01/2013 SAIDA HAMEED MD Ot 346.90 MIGRAINE UNSPECIFIED W/O INTRACT MGRN W/ 03/01/2013 SAIDA HAMEED MD Ot 401.9 HYPERTENSION NOS 03/01/2013 SAIDA HAMEED MD R Ot 412 OLD MYOCARDIAL INFARCT 03/01/2013 SAIDA HAMEED MD Ot 427.31 ATRIAL FIBRILLATION 03/01/2013 SAIDA HAMEED MD Ot 491.21 OBSTR CHRONIC BRONCHITIS, W (ACUTE) EXAC 03/01/2013 SAIDA HAMEED MD Ot 716.90 ARTHROPATHY NOS-UNSPEC 03/01/2013 SAIDA HAMEED MD Ot 780.4 DIZZINESS AND GIDDINESS 03/01/2013 SAIDA HAMEED MD Ot 780.57 UNSPECIFIED SLEEP APNEA 03/01/2013 SAIDA HAMEED MD Ot V58.61 ANTICOAGULANTS,LT,CURRENT USE 03/25/2013 VIELKA MORENO MD Ot 244.9 HYPOTHYROIDISM NOS 03/25/2013 VIELKA MORENO MD Ot 272.4 HYPERLIPIDEMIA NEC/NOS 03/25/2013 VIELKA MORENO MD Ot 300.00 ANXIETY STATE NOS 03/25/2013 VIELKA MORENO MD Ot 311 DEPRESSIVE DISORDER NEC 03/25/2013 VIELKA MORENO MD Ot 346.90 MIGRAINE UNSPECIFIED W/O INTRACT MGRN W/ 03/25/2013 VIELKA MORENO MD Ot 401.9 HYPERTENSION NOS 03/25/2013 VIELKA MORENO MD Ot 412 OLD MYOCARDIAL INFARCT 03/25/2013 VIELKA MORENO MD Ot 427.31 ATRIAL FIBRILLATION 03/25/2013 VIELKA MORENO MD Ot 496 CHR AIRWAY OBSTRUCT NEC 03/25/2013 VIELKA MORENO MD Ot 530.81 ESOPHAGEAL REFLUX 03/25/2013 VIELKA MORENO MD Ot 716.90 ARTHROPATHY NOS-UNSPEC 03/25/2013 VIELKA MORENO MD Ot 719.41 JOINT PAIN-SHLDER 03/25/2013 VIELKA MORENO MD Ot 729.5 PAIN IN LIMB 03/25/2013 VIELKA MORENO MD Ot 780.57 UNSPECIFIED SLEEP APNEA 03/25/2013 VIELKA MORENO MD Ot 780.79 OTH MALAISE FATIGUE 03/25/2013 VIELKA MORENO MD Ot 782.0 SKIN SENSATION DISTURB 03/25/2013 VIELKA MORENO MD Ot 786.05 SHORTNESS OF BREATH 03/25/2013 VIELKA MORENO MD Ot 786.59 CHEST PAIN NEC 03/25/2013 VIELKA MORENO MD Ot V58.61 ANTICOAGULANTS,LT,CURRENT USE 05/21/2013 JONNATHAN MALLOY APRN Ot 427.31 ATRIAL FIBRILLATION 05/21/2013 JONNATHAN MALLOY APRN Ot 491.21 OBSTR CHRONIC BRONCHITIS, W (ACUTE) EXAC 05/21/2013 JONNATHAN MALLOY APRN Ot 786.05 SHORTNESS OF BREATH 05/21/2013 JONNATHAN MALLOY THROUGH OPERATOR Ot V58.61 ANTICOAGULANTS,LT,CURRENT USE 05/21/2013 JONNATHAN MALLOY APRN Ot V58.69 OTH MED,LT,CURRENT USE 05/25/2013 SAIDA HAMEED MD R Ot 244.9 HYPOTHYROIDISM NOS 05/25/2013 SAIDA AHMEED MD R Ot 250.00 DIAB MICHAEL WO COMPL, TYPE II OR UNSPEC TY 05/25/2013 SAIDA HAMEED MD R Ot 300.00 ANXIETY STATE NOS 05/25/2013 SAIDA HAMEED MD R Ot 311 DEPRESSIVE DISORDER NEC 05/25/2013 SAIDA HAMEED MD R Ot 346.90 MIGRAINE UNSPECIFIED W/O INTRACT MGRN W/ 05/25/2013 SAIDA HAMEED MD Ot 401.9 HYPERTENSION NOS 05/25/2013 SAIDA HAMEED MD R Ot 412 OLD MYOCARDIAL INFARCT 05/25/2013 SAIDA HAMEED MD Ot 427.31 ATRIAL FIBRILLATION 05/25/2013 SAIDA HAMEED MD R Ot 478.19 OTHER DISEASE OF NASAL CAVITY AND SINUSE 05/25/2013 SAIDA HAMEED MD R Ot 491.22 OBSTRUCTIVE CHRONIC BRONCHITIS WITH ACUT 05/25/2013 SAIDA HAMEED MD R Ot 716.90 ARTHROPATHY NOS-UNSPEC 05/25/2013 SAIDA HAMEED MD R Ot 780.57 UNSPECIFIED SLEEP APNEA 05/25/2013 SAIDA HAMEED MD R Ot 780.79 OTH MALAISE FATIGUE 05/25/2013 SAIDA HAMEED MD R Ot 786.05 SHORTNESS OF BREATH 05/25/2013 SAIDA HAMEED MD R Ot 786.07 WHEEZING 05/25/2013 SAIDA HAMEED MD R Ot 786.09 RESPIRATORY ABNORM NEC 05/25/2013 SAIDA HAMEED MD R Ot 786.2 COUGH 05/25/2013 SAIDA HAMEED MD Ot V58.61 ANTICOAGULANTS,LT,CURRENT USE 05/25/2013 SAIDA HAMEED MD Ot V58.69 OTH MED,LT,CURRENT USE 06/28/2013 CARISSA ROMERO DO Ot 787.03 VOMITING ALONE 06/28/2013 CARISSA ROMERO DO Ot V87.2 CONTACT W SUSPECTED EXPOSURE OTH POTEN 08/25/2013 SAIDA HAMEED MD Ot 244.9 HYPOTHYROIDISM NOS 08/25/2013 SAIDA HAMEED MD Ot 250.00 DIAB MICHAEL WO COMPL, TYPE II OR UNSPEC TY 08/25/2013 SAIDA HAMEED MD Ot 272.4 HYPERLIPIDEMIA NEC/NOS 08/25/2013 SAIDA HAMEED MD R Ot 300.00 ANXIETY STATE NOS 08/25/2013 SAIDA HAMEED MD R Ot 311 DEPRESSIVE DISORDER NEC 08/25/2013 SAIDA HAMEED MD Ot 346.90 MIGRAINE UNSPECIFIED W/O INTRACT MGRN W/ 08/25/2013 SAIDA HAMEED MD Ot 401.9 HYPERTENSION NOS 08/25/2013 SAIDA HAMEED MD R Ot 412 OLD MYOCARDIAL INFARCT 08/25/2013 SAIDA HAMEED MD R Ot 427.31 ATRIAL FIBRILLATION 08/25/2013 SAIDA HAMEED MD R Ot 496 CHR AIRWAY OBSTRUCT NEC 08/25/2013 SAIDA HAMEED MD R Ot 530.81 ESOPHAGEAL REFLUX 08/25/2013 SAIDA HAMEED MD R Ot 716.90 ARTHROPATHY NOS-UNSPEC 08/25/2013 SAIDA HAMEED MD R Ot 724.5 BACKACHE NOS 08/25/2013 SAIDA HAMEED MD Ot 780.57 UNSPECIFIED SLEEP APNEA 08/25/2013 SAIDA HAMEED MD Ot 786.50 CHEST PAIN NOS 08/25/2013 SAIDA HAMEED MD Ot 790.92 COAGULATION PROFILE, ABNORMAL 08/25/2013 SAIDA HAMEED MD Ot V58.61 ANTICOAGULANTS,LT,CURRENT USE 10/14/2013 JULIANA HERNANDEZ DO Ot 244.9 HYPOTHYROIDISM NOS 10/14/2013 JULIANA HERNANDEZ DO Ot 272.0 PURE HYPERCHOLESTEROLEM 10/14/2013 JULIANA HERNANDEZ DO Ot 300.00 ANXIETY STATE NOS 10/14/2013 JULIANA HERNANDEZ DO Ot 311 DEPRESSIVE DISORDER NEC 10/14/2013 JULIANA HERNANDEZ DO Ot 346.90 MIGRAINE UNSPECIFIED W/O INTRACT MGRN W/ 10/14/2013 JULIANA HERNANDEZ DO Ot 401.9 HYPERTENSION NOS 10/14/2013 JULIANA HERNANDEZ DO Ot 427.9 CARDIAC DYSRHYTHMIA NOS 10/14/2013 JULIANA HERNANDEZ DO Ot 428.0 CONGESTIVE HEART FAILURE NOS 10/14/2013 JULIANA HERNANDEZ DO Ot 496 CHR AIRWAY OBSTRUCT NEC 10/14/2013 JULIANA HERNANDEZ DO Ot 599.0 URIN TRACT INFECTION NOS 10/14/2013 JULIANA HERNANDEZ DO Ot 716.90 ARTHROPATHY NOS-UNSPEC 10/14/2013 JULIANA HERNANDEZ DO Ot 722.0 CERVICAL DISC DISPLACMNT 10/14/2013 JULIANA HERNANDEZ DO Ot 729.5 PAIN IN LIMB 10/14/2013 JULIANA HERNANDEZ DO Ot 780.57 UNSPECIFIED SLEEP APNEA 10/14/2013 JULIANA HERNANDEZ DO Ot V58.66 LONG-TERM (CURRENT) USE OF ASPIRIN 10/14/2013 JULIANA HERNANDEZ DO Ot V58.69 OTH MED,LT,CURRENT USE 07/02/2014 Ot 461.9 ACUTE SINUSITIS NOS 07/02/2014 Ot 491.21 OBSTR CHRONIC BRONCHITIS, W (ACUTE) EXAC 07/02/2014 Ot 786.05 SHORTNESS OF BREATH 10/25/2014 Ot 785.6 10/25/2014 Ot 478.19 10/25/2014 Ot 780.4 10/25/2014 Ot 784.0 10/25/2014 Ot 787.02 10/25/2014 Ot 709.9 10/25/2014 Ot V72.63 10/25/2014 Ot V74.8 10/25/2014 Ot V58.61 10/25/2014 Ot V58.83 10/25/2014 ZHANE LU, JAMES Rodríguez Ot 286.9 10/25/2014 ZARI LU, SAIDA Oliveira Ot 729.5 10/25/2014 ZARI LU, SAIDA Oliveira Ot 729.81 10/25/2014 TRACY JOSEPH DO M Ot 278.01 10/25/2014 JAKE SALAZAR TRACY Gutierrez Ot 311 10/25/2014 JAKE SALAZAR TRACY Gutierrez Ot 427.31 10/25/2014 JAKE SALAZAR TRACY Brenda Ot 496 10/25/2014 JAMES PHELAN MD Ot 244.9 HYPOTHYROIDISM NOS 10/25/2014 JAMES PHELAN MD Ot 782.0 SKIN SENSATION DISTURB 10/25/2014 JAMES PHELAN MD Ot 789.09 ABDOMINAL PAIN, OTHER SPECIFIED SITE 10/25/2014 JAMES PHELAN MD Ot V58.61 ANTICOAGULANTS,LT,CURRENT USE 10/25/2014 JAMES PHELAN MD Ot V58.69 OTH MED,LT,CURRENT USE 10/25/2014 Ot 785.6 10/25/2014 Ot 478.19 10/25/2014 Ot 780.4 10/25/2014 Ot 784.0 10/25/2014 Ot 787.02 10/25/2014 Ot 709.9 10/25/2014 Ot V72.63 10/25/2014 Ot V74.8 10/25/2014 Ot V58.61 10/25/2014 Ot V58.83 10/25/2014 JAMES PHELAN MD Ot 286.9 10/25/2014 ZARI LU, SAIDA Oliveira Ot 729.5 10/25/2014 ZARI LU, SAIDA Oliveira Ot 729.81 10/25/2014 JAKE SALAZAR TRACY Brenda Ot 278.01 10/25/2014 JAKE SALAZAR TRACY M Ot 311 10/25/2014 JAKE SALAZAR TRACY Brenda Ot 427.31 10/25/2014 JAKE SALAZAR TRACY Gutierrez Ot 496 11/22/2014 ZARI LU, SAIDA Oliveira Ot 496 CHR AIRWAY OBSTRUCT NEC 11/22/2014 ZARI LU, SAIDA Oliveira Ot 987.6 TOXIC EFF CHLORINE GAS 11/22/2014 ZARI LU, SAIDA Oliveira Ot E000.8 OTHER EXTERNAL CAUSE STATUS 11/22/2014 ZARI LU, SAIDA Oliveira Ot E013.4 ACTIVITIES INVOLVING FLOOR MOPPING AND C 11/22/2014 ZARI LU, SAIDA Oliveira Ot E849.0 ACCIDENT IN HOME 11/22/2014 SAIDA HAMEED MD R Ot E869.8 ACC POISON-GAS/VAPOR NEC 02/25/2015 ZARI LU, SAIDA R Ot J40 03/18/2015 ZARI LU, SAIDA R Ot J40 04/02/2015 Ot 478.19 04/02/2015 Ot 780.4 04/02/2015 Ot 784.0 04/02/2015 Ot 787.02 04/02/2015 Ot 709.9 04/02/2015 Ot V72.63 04/02/2015 Ot V74.8 04/02/2015 Ot V58.61 04/02/2015 Ot V58.83 04/02/2015 ZHANE LU, JAMES Rodríguez Ot 286.9 04/02/2015 ZARI LU, SAIDA Oliveira Ot 729.5 04/02/2015 ZARI LU, SAIDA Oliveira Ot 729.81 04/02/2015 TRACY JOSEPH DO Ot 278.01 04/02/2015 TRACY JOSEPH DO Ot 311 04/02/2015 TRACY JOSEPH DO Ot 427.31 04/02/2015 TRACY JOSEPH DO Ot 496 04/02/2015 SAIDA HAMEED MD Ot J40 04/02/2015 Ot V58.61 04/02/2015 Ot V58.83 04/04/2015 ZARI LU, SAIDA Oliveira Ot E11.9 TYPE 2 DIABETES MELLITUS WITHOUT COMPLIC 04/04/2015 ZARI LU, SAIDA Oliveira Ot E66.9 OBESITY, UNSPECIFIED 04/04/2015 SAIDA HAMEED MD Ot I10 ESSENTIAL (PRIMARY) HYPERTENSION 04/04/2015 ZARI LU, SAIDA Oliveira Ot I48.91 UNSPECIFIED ATRIAL FIBRILLATION 04/04/2015 ZARI LU, SAIDA Oliveira Ot J44.1 CHRONIC OBSTRUCTIVE PULMONARY DISEASE W 04/04/2015 ZARI LU, SAIDA Oliveira Ot Z23 ENCOUNTER FOR IMMUNIZATION 04/04/2015 SAIDA HAMEED MD Ot Z68.41 BODY MASS INDEX (BMI) 40.0-44.9, ADULT 04/05/2015 CHRISTIANO LU, SANDRITA Mejia Ot J44.0 CHRONIC OBSTRUCTIVE PULMON DISEASE W ACU 05/07/2015 Ot 478.19 05/07/2015 Ot 780.4 05/07/2015 Ot 784.0 05/07/2015 Ot 787.02 05/07/2015 Ot 709.9 05/07/2015 Ot V72.63 05/07/2015 Ot V74.8 05/07/2015 Ot V58.61 05/07/2015 Ot V58.83 05/07/2015 ZHANE LU, JAMES D Ot 286.9 05/07/2015 ZARI LU, SAIDA R Ot 729.5 05/07/2015 ZARI LU, ASIDA R Ot 729.81 05/07/2015 JAKE SALAZAR TRACY M Ot 278.01 05/07/2015 TRACY JOSEPH DO M Ot 311 05/07/2015 JAKE SALAZAR TRACY M Ot 427.31 05/07/2015 JAKE SALAZAR TRACY M Ot 496 05/07/2015 ZARI LU, SAIDA R Ot J40 05/27/2015 ZARI LU, SAIDA R Ot J40 06/16/2015 CHRISTIANO LU, SANDRITA Mejia Ot J44.1 CHRONIC OBSTRUCTIVE PULMONARY DISEASE W 08/14/2015 BAIMA, ESTELA L HOIST OPERATOR Ot G47.30 SLEEP APNEA, UNSPECIFIED 08/14/2015 BAIMA, ESTELA L HOIST OPERATOR Ot I48.91 UNSPECIFIED ATRIAL FIBRILLATION 08/14/2015 BAIMA, ESTELA L HOIST OPERATOR Ot J44.9 CHRONIC OBSTRUCTIVE PULMONARY DISEASE, U 08/14/2015 BAIMA, ESTELA L HOIST OPERATOR Ot R06.00 DYSPNEA, UNSPECIFIED 08/14/2015 BAIMA, ESTELA L HOIST OPERATOR Ot R07.9 CHEST PAIN, UNSPECIFIED 08/14/2015 BAIMA, ESTELA L HOIST OPERATOR Ot Z79.01 PUBLIC HEALTH REPRESENTATIVE (CURRENT) USE OF ANTICOAGULANT 09/03/2015 BAIMA, ESTELA L HOIST OPERATOR Ot G47.30 SLEEP APNEA, UNSPECIFIED 09/03/2015 BAIMA, ESTELA L HOIST OPERATOR Ot I48.91 UNSPECIFIED ATRIAL FIBRILLATION 09/03/2015 BAIMA, ESTELA L HOIST OPERATOR Ot J44.9 CHRONIC OBSTRUCTIVE PULMONARY DISEASE, U 09/03/2015 BAIMA, ESTELA L HOIST OPERATOR Ot R06.00 DYSPNEA, UNSPECIFIED 09/03/2015 BAIMA, ESTELA L HOIST OPERATOR Ot R07.9 CHEST PAIN, UNSPECIFIED 09/03/2015 BAIMA, ESTELA L HOIST OPERATOR Ot Z79.01 PUBLIC HEALTH REPRESENTATIVE (CURRENT) USE OF ANTICOAGULANT 09/20/2015 MELLYMA ESTELA L HOIST OPERATOR Ot G47.30 SLEEP APNEA, UNSPECIFIED 09/20/2015 BAIMA ESTELA L HOIST OPERATOR Ot I48.91 UNSPECIFIED ATRIAL FIBRILLATION 09/20/2015 MELLYMALUIGIESTEAL L HOIST OPERATOR Ot J44.9 CHRONIC OBSTRUCTIVE PULMONARY DISEASE, U 09/20/2015 MELLYLUIGI MARTINEZHER L HOIST OPERATOR Ot R06.00 DYSPNEA, UNSPECIFIED 09/20/2015 BAIMA, ESTELA L HOIST OPERATOR Ot R07.9 CHEST PAIN, UNSPECIFIED 09/20/2015 BAIMALUIGIESTELA L HOIST OPERATOR Ot Z79.01 FDC (CURRENT) USE OF ANTICOAGULANT 02/25/2016 Ot 709.9 SKIN DISORDER NOS 02/25/2016 Ot V72.63 PRE- PROCEDURAL LABORATORY EXAMINATION 02/25/2016 Ot V74.8 SCREEN- BACTERIAL DIS NEC 02/25/2016 Ot V58.61 ANTICOAGULANTS,LT,CURRENT USE 02/25/2016 Ot V58.83 ENCOUNTER FOR THERAPEUTIC DRUG MONITORIN 02/25/2016 ZHANE LU, JAMES Rodríguez Ot 286.9 COAGULAT DEFECT NEC/NOS 02/25/2016 ZARI LU, SAIDA Oliveira Ot 729.5 PAIN IN LIMB 02/25/2016 ZARI LU, SAIDA R Ot 729.81 SWELLING OF LIMB 02/25/2016 TRACY JOSEPH DO Ot 278.01 MORBID OBESITY 02/25/2016 TRACY JOSEPH DO Ot 311 DEPRESSIVE DISORDER NEC 02/25/2016 TRACY JOSEPH DO Ot 427.31 ATRIAL FIBRILLATION 02/25/2016 TRACY JOSEPH DO Ot 496 CHR AIRWAY OBSTRUCT NEC 02/25/2016 ZARI LU, SAIDA R Ot J40 BRONCHITIS, NOT SPECIFIED ACUTE OR CH 02/25/2016 RITA ESTELA L HOIST OPERATOR Ot G47.30 SLEEP APNEA, UNSPECIFIED 02/25/2016 MELLYMA ESTELA L HOIST OPERATOR Ot I48.91 UNSPECIFIED ATRIAL FIBRILLATION 02/25/2016 MELLYJUAN ESTELA L HOIST OPERATOR Ot J44.9 CHRONIC OBSTRUCTIVE PULMONARY DISEASE, U 02/25/2016 MELLYMA ESTELA L HOIST OPERATOR Ot R06.00 DYSPNEA, UNSPECIFIED 02/25/2016 MELLYMA ESTELA L HOIST OPERATOR Ot R07.9 CHEST PAIN, UNSPECIFIED 02/25/2016 ESTELA SALINAS HOIST OPERATOR Ot Z79.01 PUBLIC HEALTH REPRESENTATIVE (CURRENT) USE OF ANTICOAGULANT 02/26/2016 ZARI LU, SAIDA R Ot R06.2 WHEEZING 03/03/2016 Ot 709.9 SKIN DISORDER NOS 03/03/2016 Ot V72.63 PRE- PROCEDURAL LABORATORY EXAMINATION 03/03/2016 Ot V74.8 SCREEN- BACTERIAL DIS NEC 03/03/2016 Ot V58.61 ANTICOAGULANTS,LT,CURRENT USE 03/03/2016 Ot V58.83 ENCOUNTER FOR THERAPEUTIC DRUG MONITORIN 03/03/2016 ZHANE LU, JAMES Rodríguez Ot 286.9 COAGULAT DEFECT NEC/NOS 03/03/2016 ZARI LU, SAIDA Oliveira Ot 729.5 PAIN IN LIMB 03/03/2016 SAIDA HAMEED MD Ot 729.81 SWELLING OF LIMB 03/03/2016 TRACY JOSEPH DO Ot 278.01 MORBID OBESITY 03/03/2016 TRACY JOSEPH DO Ot 311 DEPRESSIVE DISORDER NEC 03/03/2016 TRACY JOSEPH DO Ot 427.31 ATRIAL FIBRILLATION 03/03/2016 TRACY JOSEPH DO Ot 496 CHR AIRWAY OBSTRUCT NEC 03/03/2016 SAIDA HAMEED MD Ot J40 BRONCHITIS, NOT SPECIFIED ACUTE OR CH 03/03/2016 ESTELA SALINAS HOIST OPERATOR Ot G47.30 SLEEP APNEA, UNSPECIFIED 03/03/2016 ESTELA SALINAS HOIST OPERATOR Ot I48.91 UNSPECIFIED ATRIAL FIBRILLATION 03/03/2016 ESTELA SALINAS HOIST OPERATOR Ot J44.9 CHRONIC OBSTRUCTIVE PULMONARY DISEASE, U 03/03/2016 ESTELA SALINAS HOIST OPERATOR Ot R06.00 DYSPNEA, UNSPECIFIED 03/03/2016 ESTELA SALINAS HOIST OPERATOR Ot R07.9 CHEST PAIN, UNSPECIFIED 03/03/2016 ESTELA SALINAS HOIST OPERATOR Ot Z79.01 FDC (CURRENT) USE OF ANTICOAGULANT 03/03/2016 SAIDA HAMEED MD R Ot R06.2 WHEEZING 03/17/2016 SAIDA HAMEED MD Ot R06.2 WHEEZING 03/24/2016 SAIDA HAMEED MD Ot R06.2 WHEEZING 05/13/2016 NICK DO, CARISSA K Ot E66.01 MORBID (SEVERE) OBESITY DUE TO EXCESS CA 05/13/2016 NICK DO CARISSA K Ot I10 ESSENTIAL (PRIMARY) HYPERTENSION 05/13/2016 NICK DEANNA SALAZARA K Ot J44.9 CHRONIC OBSTRUCTIVE PULMONARY DISEASE, U 05/13/2016 NICK DO CARISSA K Ot K52.9 NONINFECTIVE GASTROENTERITIS AND COLITIS 05/13/2016 NICK DODEANNAA K Ot R11.2 NAUSEA WITH VOMITING, UNSPECIFIED 05/13/2016 NICK DODEANNAA K Ot Z79.82 FDC (CURRENT) USE OF ASPIRIN 05/13/2016 NICK DO CARISSA K Ot Z79.891 FDC (CURRENT) USE OF OPIATE ANALGE 05/13/2016 NICK DO CARISSA K Ot Z79.899 OTHER FDC (CURRENT) DRUG THERAPY 05/14/2016 NICK DODEANNAA K Ot E66.01 MORBID (SEVERE) OBESITY DUE TO EXCESS CA 05/14/2016 NICK DOCARISSA K Ot I10 ESSENTIAL (PRIMARY) HYPERTENSION 05/14/2016 NICK DOCARISSA K Ot J44.9 CHRONIC OBSTRUCTIVE PULMONARY DISEASE, U 05/14/2016 NICK DEANNA SALAZARA K Ot K52.9 NONINFECTIVE GASTROENTERITIS AND COLITIS 05/14/2016 NICK DODEANNAA K Ot R11.2 NAUSEA WITH VOMITING, UNSPECIFIED 05/14/2016 NICK DO CARISSA K Ot Z79.82 PUBLIC HEALTH REPRESENTATIVE (CURRENT) USE OF ASPIRIN 05/14/2016 NICK DO CARISSA K Ot Z79.891 PUBLIC HEALTH REPRESENTATIVE (CURRENT) USE OF OPIATE ANALGE 05/14/2016 NICK DEANNA SALAZARA K Ot Z79.899 OTHER FDC (CURRENT) DRUG THERAPY 08/25/2016 Ot 709.9 SKIN DISORDER NOS 08/25/2016 Ot V72.63 PRE- PROCEDURAL LABORATORY EXAMINATION 08/25/2016 Ot V74.8 SCREEN- BACTERIAL DIS NEC 08/25/2016 Ot V58.61 ANTICOAGULANTS,LT,CURRENT USE 08/25/2016 Ot V58.83 ENCOUNTER FOR THERAPEUTIC DRUG MONITORIN 08/25/2016 ZHANE LU, JAMES Rodríguez Ot 286.9 COAGULAT DEFECT NEC/NOS 08/25/2016 ZARI LU, SAIDA Oliveira Ot 729.5 PAIN IN LIMB 08/25/2016 SAIDA HAMEED MD Ot 729.81 SWELLING OF LIMB 08/25/2016 TRACY JOSEPH DO Ot 278.01 MORBID OBESITY 08/25/2016 TRACY JOSEPH DO Ot 311 DEPRESSIVE DISORDER NEC 08/25/2016 TRACY JOSEPH DO Ot 427.31 ATRIAL FIBRILLATION 08/25/2016 TRACY JOSEPH DO Ot 496 CHR AIRWAY OBSTRUCT NEC 08/25/2016 SAIDA HAMEED MD Ot J40 BRONCHITIS, NOT SPECIFIED ACUTE OR CH 08/25/2016 MELLYMAESTELA L HOIST OPERATOR Ot G47.30 SLEEP APNEA, UNSPECIFIED 08/25/2016 BAIMA ESTELA L HOIST OPERATOR Ot I48.91 UNSPECIFIED ATRIAL FIBRILLATION 08/25/2016 ESTELA SALINAS L HOIST OPERATOR Ot J44.9 CHRONIC OBSTRUCTIVE PULMONARY DISEASE, U 08/25/2016 ESTELA SALINAS L HOIST OPERATOR Ot R06.00 DYSPNEA, UNSPECIFIED 08/25/2016 MELLYMAESTELA L HOIST OPERATOR Ot R07.9 CHEST PAIN, UNSPECIFIED 08/25/2016 ESTELA SALINAS L HOIST OPERATOR Ot Z79.01 FDC (CURRENT) USE OF ANTICOAGULANT 08/25/2016 SAIDA HAMEED MD Ot R06.2 WHEEZING 08/25/2016 Ot V58.61 ANTICOAGULANTS,LT,CURRENT USE 08/25/2016 Ot V58.83 ENCOUNTER FOR THERAPEUTIC DRUG MONITORIN 08/25/2016 JAMES PHELAN MD Ot I10 ESSENTIAL (PRIMARY) HYPERTENSION 08/25/2016 JAMES PHELAN MD Ot I25.10 ATHSCL HEART DISEASE OF [place] CORONARY 08/25/2016 JAMES PHELAN MD Ot J44.9 CHRONIC OBSTRUCTIVE PULMONARY DISEASE, U 08/25/2016 JAMES PHELAN MD Ot M79.662 PAIN IN LEFT LOWER LEG 08/25/2016 JAMES PHELAN MD Ot R07.9 CHEST PAIN, UNSPECIFIED 08/25/2016 JAMES PHELAN MD Ot R42 DIZZINESS AND GIDDINESS 08/25/2016 JAMES PHELAN MD Ot Z79.899 OTHER FDC (CURRENT) DRUG THERAPY 08/26/2016 JAMES PHELAN MD Ot I10 ESSENTIAL (PRIMARY) HYPERTENSION 08/26/2016 JAMES PHELAN MD Ot I25.10 ATHSCL HEART DISEASE OF [place] CORONARY 08/26/2016 JAMES PHELAN MD, Ot J44.9 CHRONIC OBSTRUCTIVE PULMONARY DISEASE, U 08/26/2016 JAMES PHELAN MD Ot M79.662 PAIN IN LEFT LOWER LEG 08/26/2016 JAMES PHELAN MD Ot R07.9 CHEST PAIN, UNSPECIFIED 08/26/2016 JAMES PHELAN MD, Ot R42 DIZZINESS AND GIDDINESS 08/26/2016 JAMES PHELAN MD, Ot Z79.899 OTHER PUBLIC HEALTH REPRESENTATIVE (CURRENT) DRUG THERAPY 11/30/2016 HUGH CORDOVA MD Ot E03.9 HYPOTHYROIDISM, UNSPECIFIED 11/30/2016 HUGH CORDOVA MD Ot E78.00 PURE HYPERCHOLESTEROLEMIA, UNSPECIFIED 11/30/2016 HUGH CORDOVA MD Ot F31.9 BIPOLAR DISORDER, UNSPECIFIED 11/30/2016 HUGH CORDOVA MD Ot F41.9 ANXIETY DISORDER, UNSPECIFIED 11/30/2016 HUGH CORDOVA MD Ot G43.909 MIGRAINE, UNSP, NOT INTRACTABLE, WITHOUT 11/30/2016 HUGH CORDOVA MD Ot I10 ESSENTIAL (PRIMARY) HYPERTENSION 11/30/2016 HUGH CORDOVA MD Ot I25.10 ATHSCL HEART DISEASE OF [place] CORONARY 11/30/2016 HUGH CORDOVA MD Ot I25.2 OLD MYOCARDIAL INFARCTION 11/30/2016 HUGH CORDOVA MD Ot I48.91 UNSPECIFIED ATRIAL FIBRILLATION 11/30/2016 HUGH CORDOVA MD Ot J44.9 CHRONIC OBSTRUCTIVE PULMONARY DISEASE, U 11/30/2016 HUGH CORDOVA MD Ot R07.89 OTHER CHEST PAIN 11/30/2016 HUGH CORDOVA MD Ot R10.84 GENERALIZED ABDOMINAL PAIN 11/30/2016 HUGH CORDOVA MD Ot R11.0 NAUSEA 11/30/2016 HUGH CORDOVA MD Ot R19.7 DIARRHEA, UNSPECIFIED 11/30/2016 HUGH CORDOVA MD Ot R50.9 FEVER, UNSPECIFIED 11/30/2016 HUGH CORDOVA MD Ot Z79.01 FDC (CURRENT) USE OF ANTICOAGULANT 11/30/2016 HUGH CORDOVA MD Ot Z79.82 FDC (CURRENT) USE OF ASPIRIN 11/30/2016 HUGH CORDOVA MD, Ot Z85.828 PERSONAL HISTORY OF OTHER MALIGNANT NEOP 11/30/2016 HUGH CORDOVA MD Ot Z90.49 ACQUIRED ABSENCE OF OTHER SPECIFIED PART 11/30/2016 HUGH CORDOVA MD Ot Z90.710 ACQUIRED ABSENCE OF BOTH CERVIX AND UTER 11/30/2016 HUGH CORDOVA MD, Ot Z98.51 TUBAL LIGATION STATUS 11/30/2016 HUGH CORDOVA MD, Ot E03.9 HYPOTHYROIDISM, UNSPECIFIED 11/30/2016 HUGH CORDOVA MD Ot E78.00 PURE HYPERCHOLESTEROLEMIA, UNSPECIFIED 11/30/2016 HUGH CORDOVA MD Ot F31.9 BIPOLAR DISORDER, UNSPECIFIED 11/30/2016 HUGH CORDOVA MD Ot F41.9 ANXIETY DISORDER, UNSPECIFIED 11/30/2016 HUGH CORDOVA MD Ot G43.909 MIGRAINE, UNSP, NOT INTRACTABLE, WITHOUT 11/30/2016 HUGH CORDOVA MD Ot I10 ESSENTIAL (PRIMARY) HYPERTENSION 11/30/2016 HUGH CORDOVA MD Ot I25.10 ATHSCL HEART DISEASE OF [place] CORONARY 11/30/2016 HUGH CORDOVA MD Ot I25.2 OLD MYOCARDIAL INFARCTION 11/30/2016 HUGH CORDOVA MD Ot I48.91 UNSPECIFIED ATRIAL FIBRILLATION 11/30/2016 HUGH CORDOVA MD Ot J44.9 CHRONIC OBSTRUCTIVE PULMONARY DISEASE, U 11/30/2016 HGUH CORDOVA MD Ot R07.89 OTHER CHEST PAIN 11/30/2016 HUGH CORDOVA MD Ot R10.84 GENERALIZED ABDOMINAL PAIN 11/30/2016 HUGH CORDOVA MD Ot R11.0 NAUSEA 11/30/2016 HUGH CORDOVA MD Ot R19.7 DIARRHEA, UNSPECIFIED 11/30/2016 HUGH CORDOVA MD, Ot R50.9 FEVER, UNSPECIFIED 11/30/2016 HUGH CORDOVA MD, Ot Z79.01 [facility] (CURRENT) USE OF ANTICOAGULANT 11/30/2016 HUGH CORDOVA MD, Ot Z79.82 PUBLIC HEALTH REPRESENTATIVE (CURRENT) USE OF ASPIRIN 11/30/2016 HUGH CORDOVA MD, Ot Z85.828 PERSONAL HISTORY OF OTHER MALIGNANT NEOP 11/30/2016 HUGH CORDOVA MD, Ot Z90.49 ACQUIRED ABSENCE OF OTHER SPECIFIED PART 11/30/2016 HUGH CORDOVA MD, Ot Z90.710 ACQUIRED ABSENCE OF BOTH CERVIX AND UTER 11/30/2016 HUGH CORDOVA MD, Ot Z98.51 TUBAL LIGATION STATUS 01/12/2017 JONNATHAN MALLOY APRN Ot E03.9 HYPOTHYROIDISM, UNSPECIFIED 01/12/2017 JONNATHAN MALLOY APRN Ot E78.00 PURE HYPERCHOLESTEROLEMIA, UNSPECIFIED 01/12/2017 JONNATHAN MALLOY APRN Ot F31.9 BIPOLAR DISORDER, UNSPECIFIED 01/12/2017 JONNATHAN MALLOY APRN Ot F41.9 ANXIETY DISORDER, UNSPECIFIED 01/12/2017 JONNATHAN MALLOY APRN Ot G43.909 MIGRAINE, UNSP, NOT INTRACTABLE, WITHOUT 01/12/2017 JONNATHAN MALLOY APRN Ot I10 ESSENTIAL (PRIMARY) HYPERTENSION 01/12/2017 JONNATHAN MALLOY APRN Ot I25.10 ATHSCL HEART DISEASE OF [place] CORONARY 01/12/2017 JONNATHAN MALLOY APRN Ot I25.2 OLD MYOCARDIAL INFARCTION 01/12/2017 JONNATHAN MALLOY APRN Ot I48.91 UNSPECIFIED ATRIAL FIBRILLATION 01/12/2017 JONNATHAN MALLOY APRN Ot J45.909 UNSPECIFIED ASTHMA, UNCOMPLICATED 01/12/2017 JONNATHAN MALLOY APRN Ot K21.9 GASTRO-ESOPHAGEAL REFLUX DISEASE WITHOUT 01/12/2017 JONNATHAN MALLOY APRN Ot R06.00 DYSPNEA, UNSPECIFIED 01/12/2017 JONNATHAN MALLOY APRN Ot Z79.82 PUBLIC HEALTH REPRESENTATIVE (CURRENT) USE OF ASPIRIN 01/12/2017 JONNATHAN MALLOY APRN Ot Z87.81 PERSONAL HISTORY OF (HEALED) TRAUMATIC F 01/12/2017 JONNATHAN MALLOY APRN Ot Z90.710 ACQUIRED ABSENCE OF BOTH CERVIX AND UTER 01/12/2017 JONNATHAN MALLOY APRN Ot Z98.51 TUBAL LIGATION STATUS 01/14/2017 JONNATHAN MALLOY APRN Ot E03.9 HYPOTHYROIDISM, UNSPECIFIED 01/14/2017 JONNATHAN MALLOY APRN Ot E78.00 PURE HYPERCHOLESTEROLEMIA, UNSPECIFIED 01/14/2017 JONNATHAN MALLOY APRN Ot F31.9 BIPOLAR DISORDER, UNSPECIFIED 01/14/2017 JONNATHAN MALLOY APRN Ot F41.9 ANXIETY DISORDER, UNSPECIFIED 01/14/2017 JONNATHAN MALLOY APRN Ot G43.909 MIGRAINE, UNSP, NOT INTRACTABLE, WITHOUT 01/14/2017 JONNATHAN MALLOY APRN Ot I10 ESSENTIAL (PRIMARY) HYPERTENSION 01/14/2017 JONNATHAN MALLOY APRN Ot I25.10 ATHSCL HEART DISEASE OF [place] CORONARY 01/14/2017 JONNATHAN MALLOY APRN Ot I25.2 OLD MYOCARDIAL INFARCTION 01/14/2017 JONNATHAN MALLOY APRN Ot I48.91 UNSPECIFIED ATRIAL FIBRILLATION 01/14/2017 JONNATHAN MALLOY APRN Ot J45.909 UNSPECIFIED ASTHMA, UNCOMPLICATED 01/14/2017 JONNATHAN MALLOY APRN Ot K21.9 GASTRO-ESOPHAGEAL REFLUX DISEASE WITHOUT 01/14/2017 JONNATHAN MALLOY APRN Ot R06.00 DYSPNEA, UNSPECIFIED 01/14/2017 JONNATHAN MALLOY APRN Ot Z79.82 [facility] (CURRENT) USE OF ASPIRIN 01/14/2017 JONNATHAN MALLOY APRN Ot Z87.81 PERSONAL HISTORY OF (HEALED) TRAUMATIC F 01/14/2017 JONNATHAN MALLOY APRN Ot Z90.710 ACQUIRED ABSENCE OF BOTH CERVIX AND UTER 01/14/2017 JONNATHAN MALLOY APRN Ot Z98.51 TUBAL LIGATION STATUS 01/18/2017 JONNATHAN MALLOY APRN Ot E03.9 HYPOTHYROIDISM, UNSPECIFIED 01/18/2017 JONNATHAN MALLOY APRN Ot E78.00 PURE HYPERCHOLESTEROLEMIA, UNSPECIFIED 01/18/2017 JONNATHAN MALLOY APRN Ot F31.9 BIPOLAR DISORDER, UNSPECIFIED 01/18/2017 JONNATHAN MALLOY APRN Ot F41.9 ANXIETY DISORDER, UNSPECIFIED 01/18/2017 JONNATHAN MALLOY APRN Ot G43.909 MIGRAINE, UNSP, NOT INTRACTABLE, WITHOUT 01/18/2017 JONNATHAN MALLOY APRN Ot I10 ESSENTIAL (PRIMARY) HYPERTENSION 01/18/2017 JONNATHAN MALLOY APRN Ot I25.10 ATHSCL HEART DISEASE OF [place] CORONARY 01/18/2017 JONNATHAN MALLOY APRN Ot I25.2 OLD MYOCARDIAL INFARCTION 01/18/2017 JONNATHAN MALLOY APRN Ot I48.91 UNSPECIFIED ATRIAL FIBRILLATION 01/18/2017 JONNATHAN MALLOY APRN Ot J45.909 UNSPECIFIED ASTHMA, UNCOMPLICATED 01/18/2017 JONNATHAN MALLOY APRN Ot K21.9 GASTRO-ESOPHAGEAL REFLUX DISEASE WITHOUT 01/18/2017 JONNATHAN MALLOY APRN Ot R06.00 DYSPNEA, UNSPECIFIED 01/18/2017 JONNATHAN MALLOY APRN Ot Z79.82 PUBLIC HEALTH REPRESENTATIVE (CURRENT) USE OF ASPIRIN 01/18/2017 JONNATHAN MALLOY APRN Ot Z87.81 PERSONAL HISTORY OF (HEALED) TRAUMATIC F 01/18/2017 JONNATHAN MALLOY APRN Ot Z90.710 ACQUIRED ABSENCE OF BOTH CERVIX AND UTER 01/18/2017 JONNATHAN MALLOY APRN Ot Z98.51 TUBAL LIGATION STATUS 03/28/2017 CARISSA ROMERO DO Ot E03.9 HYPOTHYROIDISM, UNSPECIFIED 03/28/2017 CARISSA ROMERO DO K Ot E78.00 PURE HYPERCHOLESTEROLEMIA, UNSPECIFIED 03/28/2017 CARISSA ROMERO DO K Ot F31.9 BIPOLAR DISORDER, UNSPECIFIED 03/28/2017 CARISSA ROMERO DO Ot F41.9 ANXIETY DISORDER, UNSPECIFIED 03/28/2017 DEANNA ROMERO DOA K Ot G43.909 MIGRAINE, UNSP, NOT INTRACTABLE, WITHOUT 03/28/2017 CARISSA ROMERO DO K Ot G47.33 OBSTRUCTIVE SLEEP APNEA (ADULT) (PEDIATR 03/28/2017 CARISSA ROMERO DO Ot I10 ESSENTIAL (PRIMARY) HYPERTENSION 03/28/2017 CARISSA ROMERO DO K Ot I25.10 ATHSCL HEART DISEASE OF [place] CORONARY 03/28/2017 CARISSA ROMERO DO Ot I25.2 OLD MYOCARDIAL INFARCTION 03/28/2017 CARISSA ROMERO DO Ot I48.91 UNSPECIFIED ATRIAL FIBRILLATION 03/28/2017 CARISSA ROMERO DO Ot I80.02 PHLEBITIS AND THOMBOPHLB OF [place] VES 03/28/2017 CARISSA ROMERO DO Ot J44.9 CHRONIC OBSTRUCTIVE PULMONARY DISEASE, U 03/28/2017 CARISSA ROMERO DO Ot M19.90 UNSPECIFIED OSTEOARTHRITIS, UNSPECIFIED 03/28/2017 CARISSA ROMERO DO Ot M25.562 PAIN IN LEFT KNEE 03/28/2017 CARISSA ROMERO DO Ot Z79.01 [facility] (CURRENT) USE OF ANTICOAGULANT 03/28/2017 CARISSA ROMERO DO Ot Z79.82 [facility] (CURRENT) USE OF ASPIRIN 03/28/2017 CARISSA ROMERO DO Ot Z87.01 PERSONAL HISTORY OF PNEUMONIA (RECURRENT 03/28/2017 CARISSA ROMERO DO Ot Z87.09 PERSONAL HISTORY OF OTHER DISEASES OF [place] 03/28/2017 CARISSA ROMERO DO Ot Z90.49 ACQUIRED ABSENCE OF OTHER SPECIFIED PART 03/28/2017 CARISSA ROMERO DO Ot Z90.710 ACQUIRED ABSENCE OF BOTH CERVIX AND UTER 03/28/2017 CARISSA ROMERO DO Ot Z98.51 TUBAL LIGATION STATUS 03/31/2017 CARISSA ROMERO DO Ot E03.9 HYPOTHYROIDISM, UNSPECIFIED 03/31/2017 CARISSA ROMERO DO Ot E78.00 PURE HYPERCHOLESTEROLEMIA, UNSPECIFIED 03/31/2017 CARISSA ROMERO DO Ot F31.9 BIPOLAR DISORDER, UNSPECIFIED 03/31/2017 CAIRSSA ROMERO DO Ot F41.9 ANXIETY DISORDER, UNSPECIFIED 03/31/2017 CARISSA ROMERO DO Ot G43.909 MIGRAINE, UNSP, NOT INTRACTABLE, WITHOUT 03/31/2017 CARISSA ROMERO DO Ot G47.33 OBSTRUCTIVE SLEEP APNEA (ADULT) (PEDIATR 03/31/2017 CARISSA ROMERO DO Ot I10 ESSENTIAL (PRIMARY) HYPERTENSION 03/31/2017 CARISSA ROMERO DO Ot I25.10 ATHSCL HEART DISEASE OF [place] CORONARY 03/31/2017 CARISSA ROMERO DO Ot I25.2 OLD MYOCARDIAL INFARCTION 03/31/2017 CARISSA ROMERO DO Ot I48.91 UNSPECIFIED ATRIAL FIBRILLATION 03/31/2017 CARISSA ROMERO DO Ot I80.02 PHLEBITIS AND THOMBOPHLB OF [place]PERF[place] VES 03/31/2017 CARISSA ROMERO DO Ot J44.9 CHRONIC OBSTRUCTIVE PULMONARY DISEASE, U 03/31/2017 NICK SALAZAR CARISSA Mejia Ot M19.90 UNSPECIFIED OSTEOARTHRITIS, UNSPECIFIED 03/31/2017 CARISSA ROMERO DO Ot M25.562 PAIN IN LEFT KNEE 03/31/2017 NICK SALAZAR CARISSA Mejia Ot Z79.01 PUBLIC HEALTH REPRESENTATIVE (CURRENT) USE OF ANTICOAGULANT 03/31/2017 NICK SALAZAR CARISSA Mejia Ot Z79.82 [facility] (CURRENT) USE OF ASPIRIN 03/31/2017 NICK SALAZAR CARISSA Mejia Ot Z87.01 PERSONAL HISTORY OF PNEUMONIA (RECURRENT 03/31/2017 NICK SALAZAR CARISSA Roberto Ot Z87.09 PERSONAL HISTORY OF OTHER DISEASES OF TH 03/31/2017 NICK SALAZAR CARISSA Mejia Ot Z90.49 ACQUIRED ABSENCE OF OTHER SPECIFIED PART 03/31/2017 NICK SALAZAR CARISSA Roberto Ot Z90.710 ACQUIRED ABSENCE OF BOTH CERVIX AND UTER 03/31/2017 NICK SALAZAR CARISSA Mejia Ot Z98.51 TUBAL LIGATION STATUS 05/24/2017 SCARLET GARRETT APRN Ot M51.36 OTHER INTERVERTEBRAL DISC DEGENERATION, 05/24/2017 SCARLET GARRETT APRN Ot 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 Results Test Result Range Complete blood count (CBC) with automated white blood cell (WBC) differential - 05/12/16 23:44 Blood leukocytes automated count (number/volume) 6.1 10*3/uL 4.3-11.0 Blood erythrocytes automated count (number/volume) 4.35 10*6/uL 4.35-5.85 Venous blood hemoglobin measurement (mass/volume) 13.0 g/dL 11.5-16.0 Blood hematocrit (volume fraction) 40 % 35-52 Automated erythrocyte mean corpuscular volume 92 [foz_us] 80-99 Automated erythrocyte mean corpuscular hemoglobin (mass per erythrocyte) 30 pg 25-34 Automated erythrocyte mean corpuscular hemoglobin concentration measurement ( mass/volume) 33 g/dL 32-36 Automated erythrocyte distribution width ratio 13.9 % 10.0-14.5 Automated blood platelet count (count/volume) 164 10*3/uL 130-400 Automated blood platelet mean volume measurement 9.9 [foz_us] 7.4-10.4 Automated blood neutrophils/100 leukocytes 83 % 42-75 Automated blood lymphocytes/100 leukocytes 8 % 12-44 Blood monocytes/100 leukocytes 6 % 0-12 Automated blood eosinophils/100 leukocytes 3 % 0-10 Automated blood basophils/100 leukocytes 0 % 0-10 Blood neutrophils automated count (number/volume) 5.0 10*3 1.8-7.8 Blood lymphocytes automated count (number/volume) 0.5 10*3 1.0-4.0 Blood monocytes automated count (number/volume) 0.4 10*3 0.0-1.0 Automated eosinophil count 0.2 10*3/uL 0.0-0.3 Automated blood basophil count (count/volume) 0.0 10*3/uL 0.0-0.1 Comprehensive metabolic panel - 05/12/16 23:44 Serum or plasma sodium measurement (moles/volume) 140 mmol/L 135-145 Serum or plasma potassium measurement (moles/volume) 3.8 mmol/L 3.6-5.0 Serum or plasma chloride measurement (moles/volume) 107 mmol/L 98-107 Carbon dioxide 24 mmol/L 21-32 Serum or plasma anion gap determination (moles/volume) 9 mmol/L 5-14 Serum or plasma urea nitrogen measurement (mass/volume) 9 mg/dL 7-18 Serum or plasma creatinine measurement (mass/volume) 0.78 mg/dL 0.60-1.30 Serum or plasma urea nitrogen/creatinine mass ratio 12 NRG Serum or plasma creatinine measurement with calculation of estimated glomerular filtration rate > NRG Serum or plasma glucose measurement (mass/volume) 130 mg/dL 70-105 Serum or plasma calcium measurement (mass/volume) 8.3 mg/dL 8.5-10.1 Serum or plasma total bilirubin measurement (mass/volume) 0.6 mg/dL 0.1-1.0 Serum or plasma alkaline phosphatase measurement (enzymatic activity/volume) 76 U/L 40-136 Serum or plasma aspartate aminotransferase measurement (enzymatic activity/ volume) 19 U/L 5-34 Serum or plasma alanine aminotransferase measurement (enzymatic activity/volume ) 15 U/L 0-55 Serum or plasma protein measurement (mass/volume) 6.0 g/dL 6.4-8.2 Serum or plasma albumin measurement (mass/volume) 3.7 g/dL 3.2-4.5 Serum or plasma amylase measurement (enzymatic activity/volume) - 05/12/16 23: 44 Serum or plasma amylase measurement (enzymatic activity/volume) 32 U /L 25-125 Lipase - 05/12/16 23:44 Lipase 11 U/L 8-78 Serum or plasma ethanol measurement (mass/volume) - 05/12/16 23:44 Serum or plasma ethanol measurement (mass/volume) < mg/dL <10 Complete urinalysis with reflex to culture - 05/13/16 00:40 Urine color determination YELLOW NRG Urine clarity determination CLEAR NRG Urine pH measurement by test strip 6.5 5-9 Specific gravity of urine by test strip 1.010 1.016- 1.022 Urine protein assay by test strip, semi-quantitative NEGATIVE NEGATIVE Urine glucose detection by automated test strip NEGATIVE NEGATIVE Erythrocytes detection in urine sediment by light microscopy 2+ NEGATIVE Urine ketones detection by automated test strip NEGATIVE NEGATIVE Urine nitrite detection by test strip NEGATIVE NEGATIVE Urine total bilirubin detection by test strip NEGATIVE NEGATIVE Urine urobilinogen measurement by automated test strip (mass/volume) NORMAL NORMAL Urine leukocyte esterase detection by dipstick 1+ NEGATIVE Automated urine sediment erythrocyte count by microscopy (number/high power field) [HPF] NRG Automated urine sediment leukocyte count by microscopy (number/high power field ) RARE NRG Bacteria detection in urine sediment by light microscopy NEGATIVE NRG Squamous epithelial cells detection in urine sediment by light microscopy 2-5 NRG Crystals detection in urine sediment by light microscopy NONE NRG Casts detection in urine sediment by light microscopy NONE NRG Mucus detection in urine sediment by light microscopy SMALL NRG Complete urinalysis with reflex to culture NO NRG Urine drug screening test - 05/13/16 00:40 Urine phencyclidine detection by screening method NEGATIVE NEGATIVE Urine benzodiazepines detection by screening method NEGATIVE NEGATIVE Urine cocaine detection NEGATIVE NEGATIVE Urine amphetamines detection by screening method NEGATIVE NEGATIVE Urine methamphetamine detection by screening method NEGATIVE NEGATIVE Urine cannabinoids detection by screening method NEGATIVE NEGATIVE Urine opiates detection by screening method NEGATIVE NEGATIVE Urine barbiturates detection NEGATIVE NEGATIVE Screening urine tricyclic antidepressants detection NEGATIVE NEGATIVE Urine methadone detection by screening method NEGATIVE NEGATIVE Urine oxycodone detection NEGATIVE NEGATIVE Urine propoxyphene detection NEGATIVE NEGATIVE Complete blood count (CBC) with automated white blood cell (WBC) differential - 08/25/16 14:53 Blood leukocytes automated count (number/volume) 7.2 10*3/uL 4.3-11.0 Blood erythrocytes automated count (number/volume) 4.78 10*6/uL 4.35-5.85 Venous blood hemoglobin measurement (mass/volume) 13.8 g/dL 11.5-16.0 Blood hematocrit (volume fraction) 43 % 35-52 Automated erythrocyte mean corpuscular volume 90 [foz_us] 80-99 Automated erythrocyte mean corpuscular hemoglobin (mass per erythrocyte) 29 pg 25-34 Automated erythrocyte mean corpuscular hemoglobin concentration measurement ( mass/volume) 32 g/dL 32-36 Automated erythrocyte distribution width ratio 14.0 % 10.0-14.5 Automated blood platelet count (count/volume) 205 10*3/uL 130-400 Automated blood platelet mean volume measurement 10.5 [foz_us] 7.4-10.4 Automated blood neutrophils/100 leukocytes 73 % 42-75 Automated blood lymphocytes/100 leukocytes 17 % 12-44 Blood monocytes/100 leukocytes 7 % 0-12 Automated blood eosinophils/100 leukocytes 3 % 0-10 Automated blood basophils/100 leukocytes 0 % 0-10 Blood neutrophils automated count (number/volume) 5.3 10*3 1.8-7.8 Blood lymphocytes automated count (number/volume) 1.2 10*3 1.0-4.0 Blood monocytes automated count (number/volume) 0.5 10*3 0.0-1.0 Automated eosinophil count 0.2 10*3/uL 0.0-0.3 Automated blood basophil count (count/volume) 0.0 10*3/uL 0.0-0.1 Comprehensive metabolic panel - 08/25/16 14:53 Serum or plasma sodium measurement (moles/volume) 139 mmol/L 135-145 Serum or plasma potassium measurement (moles/volume) 4.0 mmol/L 3.6-5.0 Serum or plasma chloride measurement (moles/volume) 103 mmol/L 98-107 Carbon dioxide 29 mmol/L 21-32 Serum or plasma anion gap determination (moles/volume) 7 mmol/L 5-14 Serum or plasma urea nitrogen measurement (mass/volume) 10 mg/dL 7-18 Serum or plasma creatinine measurement (mass/volume) 0.86 mg/dL 0.60-1.30 Serum or plasma urea nitrogen/creatinine mass ratio 12 NRG Serum or plasma creatinine measurement with calculation of estimated glomerular filtration rate > NRG Serum or plasma glucose measurement (mass/volume) 104 mg/dL 70-105 Serum or plasma calcium measurement (mass/volume) 9.2 mg/dL 8.5-10.1 Serum or plasma total bilirubin measurement (mass/volume) 0.5 mg/dL 0.1-1.0 Serum or plasma alkaline phosphatase measurement (enzymatic activity/volume) 91 U/L 40-136 Serum or plasma aspartate aminotransferase measurement (enzymatic activity/ volume) 21 U/L 5-34 Serum or plasma alanine aminotransferase measurement (enzymatic activity/volume ) 17 U/L 0-55 Serum or plasma protein measurement (mass/volume) 6.9 g/dL 6.4-8.2 Serum or plasma albumin measurement (mass/volume) 4.2 g/dL 3.2-4.5 Magnesium - 08/25/16 14:53 Magnesium 1.9 mg/dL 1.8-2.4 Lipase - 08/25/16 14:53 Lipase 20 U/L 8-78 Serum or plasma troponin i.cardiac measurement (mass/volume) - 08/25/16 14:53 Serum or plasma troponin i.cardiac measurement (mass/volume) < ng/ mL <0.30 THYROID STIMULATING HORMONE - 08/25/16 14:53 THYROID STIMULATING HORMONE 3.72 u[iU]/mL 0.35-4.94 Complete urinalysis with reflex to culture - 08/25/16 16:00 Urine color determination YELLOW NRG Urine clarity determination CLEAR NRG Urine pH measurement by test strip 6 5-9 Specific gravity of urine by test strip 1.010 1.016- 1.022 Urine protein assay by test strip, semi-quantitative NEGATIVE NEGATIVE Urine glucose detection by automated test strip NEGATIVE NEGATIVE Erythrocytes detection in urine sediment by light microscopy 1+ NEGATIVE Urine ketones detection by automated test strip NEGATIVE NEGATIVE Urine nitrite detection by test strip NEGATIVE NEGATIVE Urine total bilirubin detection by test strip NEGATIVE NEGATIVE Urine urobilinogen measurement by automated test strip (mass/volume) NORMAL NORMAL Urine leukocyte esterase detection by dipstick 2+ NEGATIVE Automated urine sediment erythrocyte count by microscopy (number/high power field) RARE NRG Automated urine sediment leukocyte count by microscopy (number/high power field ) [HPF] NRG Bacteria detection in urine sediment by light microscopy FEW NRG Squamous epithelial cells detection in urine sediment by light microscopy 0-2 NRG Crystals detection in urine sediment by light microscopy NONE NRG Casts detection in urine sediment by light microscopy NONE NRG Mucus detection in urine sediment by light microscopy NEGATIVE NRG Complete urinalysis with reflex to culture YES NRG Bacterial urine culture - 08/25/16 16:00 Bacterial urine culture [id number] NRG COLONY COUNT 10,000/ML - 100,000/ML NRG FTX;REPORTABLE FURTHER ID TO FOLLOW NRG URINE CULTURE RESULTS <10,000/ML NRG FREE TEXT ENTRY 2 NOT ENTEROCOCCUS NRG Complete blood count (CBC) with automated white blood cell (WBC) differential - 11/30/16 00:10 Blood leukocytes automated count (number/volume) 7.2 10*3/uL 4.3-11.0 Blood erythrocytes automated count (number/volume) 4.37 10*6/uL 4.35-5.85 Venous blood hemoglobin measurement (mass/volume) 13.0 g/dL 11.5-16.0 Blood hematocrit (volume fraction) 40 % 35-52 Automated erythrocyte mean corpuscular volume 92 [foz_us] 80-99 Automated erythrocyte mean corpuscular hemoglobin (mass per erythrocyte) 30 pg 25-34 Automated erythrocyte mean corpuscular hemoglobin concentration measurement ( mass/volume) 32 g/dL 32-36 Automated erythrocyte distribution width ratio 13.9 % 10.0-14.5 Automated blood platelet count (count/volume) 165 10*3/uL 130-400 Automated blood platelet mean volume measurement 9.8 [foz_us] 7.4-10.4 Automated blood neutrophils/100 leukocytes 78 % 42-75 Automated blood lymphocytes/100 leukocytes 12 % 12-44 Blood monocytes/100 leukocytes 7 % 0-12 Automated blood eosinophils/100 leukocytes 3 % 0-10 Automated blood basophils/100 leukocytes 0 % 0-10 Blood neutrophils automated count (number/volume) 5.6 10*3 1.8-7.8 Blood lymphocytes automated count (number/volume) 0.8 10*3 1.0-4.0 Blood monocytes automated count (number/volume) 0.5 10*3 0.0-1.0 Automated eosinophil count 0.2 10*3/uL 0.0-0.3 Automated blood basophil count (count/volume) 0.0 10*3/uL 0.0-0.1 Comprehensive metabolic panel - 11/30/16 00:10 Serum or plasma sodium measurement (moles/volume) 142 mmol/L 135-145 Serum or plasma potassium measurement (moles/volume) 3.6 mmol/L 3.6-5.0 Serum or plasma chloride measurement (moles/volume) 105 mmol/L 98-107 Carbon dioxide 27 mmol/L 21-32 Serum or plasma anion gap determination (moles/volume) 10 mmol/L 5-14 Serum or plasma urea nitrogen measurement (mass/volume) 9 mg/dL 7-18 Serum or plasma creatinine measurement (mass/volume) 0.83 mg/dL 0.60-1.30 Serum or plasma urea nitrogen/creatinine mass ratio 11 NRG Serum or plasma creatinine measurement with calculation of estimated glomerular filtration rate > NRG Serum or plasma glucose measurement (mass/volume) 118 mg/dL 70-105 Serum or plasma calcium measurement (mass/volume) 8.7 mg/dL 8.5-10.1 Serum or plasma total bilirubin measurement (mass/volume) 0.3 mg/dL 0.1-1.0 Serum or plasma alkaline phosphatase measurement (enzymatic activity/volume) 107 U/L 40-136 Serum or plasma aspartate aminotransferase measurement (enzymatic activity/ volume) 18 U/L 5-34 Serum or plasma alanine aminotransferase measurement (enzymatic activity/volume ) 18 U/L 0-55 Serum or plasma protein measurement (mass/volume) 6.1 g/dL 6.4-8.2 Serum or plasma albumin measurement (mass/volume) 3.6 g/dL 3.2-4.5 Magnesium - 11/30/16 00:10 Magnesium 1.8 mg/dL 1.8-2.4 Serum or plasma troponin i.cardiac measurement (mass/volume) - 11/30/16 00:10 Serum or plasma troponin i.cardiac measurement (mass/volume) < ng/ mL <0.30 Lipase - 11/30/16 00:10 Lipase 22 U/L 8-78 Complete urinalysis with reflex to culture - 11/30/16 01:55 Urine color determination YELLOW NRG Urine clarity determination CLEAR NRG Urine pH measurement by test strip 6 5-9 Specific gravity of urine by test strip 1.015 1.016- 1.022 Urine protein assay by test strip, semi-quantitative NEGATIVE NEGATIVE Urine glucose detection by automated test strip NEGATIVE NEGATIVE Erythrocytes detection in urine sediment by light microscopy 1+ NEGATIVE Urine ketones detection by automated test strip NEGATIVE NEGATIVE Urine nitrite detection by test strip NEGATIVE NEGATIVE Urine total bilirubin detection by test strip NEGATIVE NEGATIVE Urine urobilinogen measurement by automated test strip (mass/volume) NORMAL NORMAL Urine leukocyte esterase detection by dipstick 2+ NEGATIVE Automated urine sediment erythrocyte count by microscopy (number/high power field) RARE NRG Automated urine sediment leukocyte count by microscopy (number/high power field ) [HPF] NRG Bacteria detection in urine sediment by light microscopy TRACE NRG Squamous epithelial cells detection in urine sediment by light microscopy 0-2 NRG Crystals detection in urine sediment by light microscopy NONE NRG Casts detection in urine sediment by light microscopy NONE NRG Mucus detection in urine sediment by light microscopy NEGATIVE NRG Complete urinalysis with reflex to culture NO NRG Complete blood count (CBC) with automated white blood cell (WBC) differential - 01/12/17 15:45 Blood leukocytes automated count (number/volume) 8.5 10*3/uL 4.3-11.0 Blood erythrocytes automated count (number/volume) 4.36 10*6/uL 4.35-5.85 Venous blood hemoglobin measurement (mass/volume) 13.1 g/dL 11.5-16.0 Blood hematocrit (volume fraction) 40 % 35-52 Automated erythrocyte mean corpuscular volume 91 [foz_us] 80-99 Automated erythrocyte mean corpuscular hemoglobin (mass per erythrocyte) 30 pg 25-34 Automated erythrocyte mean corpuscular hemoglobin concentration measurement ( mass/volume) 33 g/dL 32-36 Automated erythrocyte distribution width ratio 13.7 % 10.0-14.5 Automated blood platelet count (count/volume) 212 10*3/uL 130-400 Automated blood platelet mean volume measurement 9.7 [foz_us] 7.4-10.4 Automated blood neutrophils/100 leukocytes 65 % 42-75 Automated blood lymphocytes/100 leukocytes 24 % 12-44 Blood monocytes/100 leukocytes 8 % 0-12 Automated blood eosinophils/100 leukocytes 3 % 0-10 Automated blood basophils/100 leukocytes 0 % 0-10 Blood neutrophils automated count (number/volume) 5.5 10*3 1.8-7.8 Blood lymphocytes automated count (number/volume) 2.0 10*3 1.0-4.0 Blood monocytes automated count (number/volume) 0.7 10*3 0.0-1.0 Automated eosinophil count 0.3 10*3/uL 0.0-0.3 Automated blood basophil count (count/volume) 0.0 10*3/uL 0.0-0.1 Fibrin D-dimer FEU measurement in platelet poor plasma (mass/volume) - 15:45 Fibrin D-dimer FEU measurement in platelet poor plasma (mass/volume) 0.40 ug/mL 0.00-0.49 Comprehensive metabolic panel - 01/12/17 15:45 Serum or plasma sodium measurement (moles/volume) 139 mmol/L 135-145 Serum or plasma potassium measurement (moles/volume) 3.5 mmol/L 3.6-5.0 Serum or plasma chloride measurement (moles/volume) 101 mmol/L 98-107 Carbon dioxide 27 mmol/L 21-32 Serum or plasma anion gap determination (moles/volume) 11 mmol/L 5-14 Serum or plasma urea nitrogen measurement (mass/volume) 12 mg/dL 7-18 Serum or plasma creatinine measurement (mass/volume) 0.89 mg/dL 0.60-1.30 Serum or plasma urea nitrogen/creatinine mass ratio 13 NRG Serum or plasma creatinine measurement with calculation of estimated glomerular filtration rate > NRG Serum or plasma glucose measurement (mass/volume) 96 mg/dL 70-105 Serum or plasma calcium measurement (mass/volume) 8.7 mg/dL 8.5-10.1 Serum or plasma total bilirubin measurement (mass/volume) 0.4 mg/dL 0.1-1.0 Serum or plasma alkaline phosphatase measurement (enzymatic activity/volume) 102 U/L 40-136 Serum or plasma aspartate aminotransferase measurement (enzymatic activity/ volume) 18 U/L 5-34 Serum or plasma alanine aminotransferase measurement (enzymatic activity/volume ) 16 U/L 0-55 Serum or plasma protein measurement (mass/volume) 7.0 g/dL 6.4-8.2 Serum or plasma albumin measurement (mass/volume) 4.0 g/dL 3.2-4.5 Serum or plasma troponin i.cardiac measurement (mass/volume) - 01/12/17 15:45 Serum or plasma troponin i.cardiac measurement (mass/volume) < ng/ mL <0.30 Serum or plasma lithium measurement (moles/volume) - 01/12/17 15:45 BNP level 189.9 pg/mL <100.0 Encounters ACCT No. Visit Date/Time Discharge Status Pt. Type Provider Facility Loc./Unit Complaint [id number] 04/29/2017 15:16:00 04/29/2017 23:59:59 CLS Outpatient SCARLET GARRETT APRN [facility] RAD M554.42 [id number] 03/28/2017 15:34:00 03/28/2017 18:53:00 DIS Emergency CARISSA ROMERO DO [facility] ER L LEG SWELLING/PAIN [id number] 01/12/2017 15:46:00 01/12/2017 17:08:00 DIS Emergency JONNATHAN MALLOY THROUGH OPERATOR [facility] ER TROUBLE BREATHING; HEAVINESS IN CHEST [id number] 11/29/2016 23:07:00 11/30/2016 02:36:00 DIS Emergency TASHA LU, HUGH Ba [facility] ER D/N FEVER WEAK [id number] 08/25/2016 14:30:00 08/25/2016 18:32:00 DIS Emergency ZHANE LU, JAMES Rodríguez [facility] ER DIZZINESS/NAUSEA/ SHAKEY LEFT CALF PAIN [id number] 05/12/2016 23:38:00 05/13/2016 01:24:00 DIS Emergency NICK CARISSA SALAZAR [facility] ER N/V/D [id number] 02/25/2016 14:56:00 02/25/2016 23:59:59 CLS Outpatient ZARI LU, SAIDA Oliveira [facility] RAD WHEEZING [id number] 08/13/2015 08:10:00 08/13/2015 23:59:59 CLS Outpatient ESTELA SALINAS [facility] CARD CHEST PAIN, PALPITATIONS,AFIB [id number] 06/16/2015 12:33:00 06/16/2015 14:55:00 DIS Emergency SANDRITA ALVARADO MD [facility] ER SOB/COPD [id number] 04/05/2015 09:50:00 04/05/2015 12:07:00 DIS Emergency ODGERS MD, SANDRITA K [facility] ER SOA [id number] 04/02/2015 12:02:00 04/04/2015 09:45:00 DIS Inpatient SAIDA HAMEED MD [facility] 4TH COPD,EXACERBATION [id number] 02/21/2015 15:46:00 02/21/2015 23:59:59 CLS Outpatient SAIDA HAMEED MD [facility] RAD BRONCHITIS [id number] 11/20/2014 23:05:00 11/22/2014 09:45:00 DIS Inpatient SAIDA HAMEED MD [facility] 4TH BLEACH FUMES EXPOSURE, COPD EXACERBATION [id number] 10/25/2014 14:21:00 10/25/2014 19:30:00 DIS Emergency JAMES PHELAN MD [facility] ER LEFT GROIN PAIN [id number] 10/13/2013 20:46:00 10/14/2013 00:44:00 DIS Emergency JULIANA HERNANDEZ DO [facility] ER L LEG PAIN; CHEST PAIN [id number] 09/25/2013 12:37:00 09/25/2013 23:59:59 CLS Outpatient TRACY JOSEPH DO [facility] RT COPD,AFIB [id number] 08/25/2013 00:35:00 08/25/2013 12:05:00 DIS Inpatient SAIDA HAMEED MD [facility] CSD CHEST PAIN, SUBTHERAPEUTIC INR [id number] 07/04/2013 11:07:00 07/04/2013 23:59:59 CLS Outpatient SAIDA HAMEED MD [facility] RAD SWELLING,PAIN [id number] 06/28/2013 16:29:00 06/28/2013 17:24:00 DIS Emergency CARISSA ROMERO DO [facility] ER VOMITING,COUGH, POST EXPOSURE TO CLOROX [id number] 05/21/2013 20:58:00 05/25/2013 10:45:00 DIS Inpatient SAIDA HAMEED MD [facility] 4TH COPD EXACERBATION; WEAKNESS [id number] 05/21/2013 13:28:00 05/21/2013 15:42:00 DIS Emergency JONNATHAN MALLOY APRN [facility] ER SOA CONGESTION R ARM PAIN [id number] 03/24/2013 17:10:00 03/25/2013 09:50:00 DIS Inpatient VIELKA MORENO MD [facility] ICU CHEST PAIN [id number] 03/01/2013 01:10:00 03/01/2013 14:29:00 DIS Inpatient SAIDA HAMEED MD [facility] 4TH ACUTE EXACERBATION OF COPD [id number] 02/13/2013 12:59:00 02/13/2013 14:18:00 DIS Emergency JONNATHAN MALLOY APRN [facility] ER LEFT LEG/GROIN PAIN [id number] 12/27/2012 13:08:00 12/27/2012 15:00:00 DIS Emergency JONNATHAN MALLOY APRN [facility] ER RIGHT ARM NUMBNESS/LEFT THIGH KNOT [id number] 12/02/2012 08:45:00 12/02/2012 23:59:59 CLS Outpatient JAMES PHELAN MD [facility] LAB SUPRATHERAPEUTIC INR [id number] 11/30/2012 15:06:00 11/30/2012 18:11:00 DIS Emergency JAMES PHELAN MD [facility] ER SOA,HEADACHE, DIZZINESS [id number] 10/30/2012 11:45:00 10/30/2012 23:59:59 CLS Outpatient [id number] 08/20/2012 10:02:00 08/20/2012 23:59:59 CLS Outpatient [id number] 10/25/2014 14:22:00 Document Registration [id number] 10/25/2014 14:22:00 Document Registration [id number] 10/25/2014 14:21:00 Document Registration [id number] 10/25/2014 14:21:00 Document Registration [id number] 10/25/2014 14:21:00 Document Registration [id number] 10/25/2014 14:21:00 Document Registration [id number] 10/25/2014 14:21:00 Document Registration [id number] 10/25/2014 14:21:00 Document Registration [id number] 10/25/2014 14:21:00 Document Registration [id number] 07/01/2014 22:30:00 Document Registration [id number] 06/13/2012 19:15:00 Document Registration [id number] 02/23/2012 01:00:00 Document Registration [id number] 12/03/2011 00:00:00 Document Registration [id number] 11/12/2011 21:51:00 Document Registration [id number] 10/13/2011 08:28:00 Document Registration [id number] 09/03/2011 12:33:00 Document Registration [id number] 08/21/2011 20:45:00 Document Registration [id number] 03/24/2011 20:48:00 Document Registration [id number] 01/24/2011 21:19:00 Document Registration [id number] 09/28/2010 18:20:00 Document Registration [id number] 04/29/2010 21:21:00 Document Registration [id number] 02/10/2010 09:58:00 Document Registration [id number] 01/29/2010 14:43:00 Document Registration [id number] 11/25/2009 11:02:00 Document Registration [id number] 11/13/2009 23:33:00 Document Registration [id number] 10/28/2009 11:54:00 Document Registration [id number] 09/27/2009 10:28:00 Document Registration [id number] 09/20/2009 15:31:00 Document Registration [id number] 07/29/2009 13:39:00 Document Registration [id number] 07/29/2009 12:23:00 Document Registration
== END 2017-06-08 23:20 | disposition home or self-care (01) ==
LOC: EDUNIT# 21:53 → ER 21:55
DX: R04.0 Epistaxis (principal); J44.9 Chronic obstructive pulmonary disease, unspecified; I25.2 Old myocardial infarction; I48.91 Unspecified atrial fibrillation; I73.9 Peripheral vascular disease, unspecified; G43.909 Migraine, unspecified, not intractable, without status migrainosus; E03.9 Hypothyroidism, unspecified; F41.9 Anxiety disorder, unspecified; F31.9 Bipolar disorder, unspecified; I25.10 Atherosclerotic heart disease of native coronary artery without angina pectoris; E78.00 Pure hypercholesterolemia, unspecified; I10 Essential (primary) hypertension; G47.30 Sleep apnea, unspecified; Z87.01 Personal history of pneumonia (recurrent); Z79.01 Long term (current) use of anticoagulants; Z79.82 Long term (current) use of aspirin; Z90.710 Acquired absence of both cervix and uterus; Z98.51 Tubal ligation status
CPT/HCPCS: 96360; 99284

== ENCOUNTER 2017-06-09 14:58 | Emergency (ER) | payer MEDICARE, MEDICAID ==
[~2017-06-09] VITALS: Ht 177.8 cm; Wt 136.1 kg
--- NOTE | 2017-06-09 16:10 | ED General ---
General Chief Complaint: General Problems/Pain Stated Complaint: NEEDS ANTIBIOTIC HERE LAST NIGHT FOR NOSE BLEED Nursing Triage Note: Pt was seen in this ED last night for a nosebleed. pt was to follow-up with Dr. Rodgers's office to have packing removed. Pt has appt w/ Dr Rodgers on Wednesday (06/14). Pt was told by Dr. Rodgers's office that she should be on antibiotics since packing will be in place for so long. Dr. Rodgers's office was unable to give script for antibiotic since they have not yet seen pt so they recommended she follow-up with PCP. Pt's PCP unable to give pt Rx for antibiotic because he is out of the office until Wednesday. Pt here for antibiotic Rx. Nursing Sepsis Screen: No Definite Risk Source of Information: Patient Exam Limitations: No Limitations History of Present Illness Date Seen by Provider: Jun 09, 2017 Time Seen by Provider: 16:10 Initial Comments 62-year-old female patient presents to the emergency department with complaints of a nosebleed last night and was seen in the emergency department. Patient states she contacted Dr. Rodgers's office as instructed and was made an appointment on Wednesday 06/14. Patient was told by Dr. Rodgers's office that she would need to be on antibiotics due to the packing, but could not write for the prescriptions as they have not seen her yet. Also reports contacting Dr. Georges 's office and was told that they could not get her in today as Dr. Georges is out of the office. Also reports needing something for pain. Allergies and Home Medications Allergies Coded Allergies: No Known Drug Allergies (Verified , 04/02/15) Home Medications Albuterol Sulfate/Ipratropium 3 Ml Solution, 3 ML IH Q4H PRN for SHORTNESS OF BREATH, (Reported) Apixaban 5 Mg Tablet, 5 MG PO BID, (Reported) Aspirin 81 Mg Tablet.dr 81 MG PO DAILY, (Reported) Citalopram Hydrobromide 40 Mg Tablet, 40 MG PO DAILY, (Reported) Cyclobenzaprine HCl 10 Mg Tablet, 10 MG PO TID PRN for MUSCLE SPASMS, (Reported) Famotidine 20 Mg Tablet, 20 MG PO BID, #14 Prescribed by: JONNATHAN MALLOY on 01/12/17 4437 Furosemide 40 Mg Tablet, 40 MG PO DAILY, (Reported) Levothyroxine Sodium 25 Mcg Tablet, 25 MCG PO DAILY, (Reported) Meclizine HCl 25 Mg Tablet, 25 MG PO TID PRN for DIZZINESS, (Reported) Metoprolol Tartrate 50 Mg Tablet, 50 MG PO BID, (Reported) Multivit-Min/FA/Lycopene/Lut 1 Each Tablet, 1 TAB PO DAILY, (Reported) Potassium Chloride 20 Meq Tab.er.prt, 20 MEQ PO DAILY, (Reported) Prednisone 20 Mg Tab, 20 MG PO UD, #13 Prescribed by: SANDRITA ALVARADO on 06/16/15 1451 Simvastatin 20 Mg Tablet, 20 MG PO HS, (Reported) Past Wuonhpy-Oviaow-Sqcqnv Hx Patient Social History Alcohol Use: Denies Use Recreational Drug Use: No Smoking Status: Never a Smoker 2nd Hand Smoke Exposure: No Recent Foreign Travel: No Contact w/Someone Who Travel: No Recent Infectious Disease Expo: No Recent Hopitalizations: No Immunizations Up To Date Tetanus Booster (TDap): Unknown PED Vaccines UTD: No Date of Pneumonia Vaccine: Apr 26, 2012 Date of Influenza Vaccine: Feb 24, 2015 Seasonal Allergies Seasonal Allergies: No Surgeries History of Surgeries: Yes (BILATERAL LEG VEIN STRIPPING ; MULTIPLE CARDIAC CATHS; LEFT WRIST REPAIR) Surgeries: Appendectomy, Cardiac, Ear Surgery, Hysterectomy, Orthopedic, Tubal Ligation, Vascular Surgery Respiratory History of Respiratory Disorde: Yes Respiratory Disorders: Asthma, Pneumonia, Chronic Bronchitis, Sleep Apnea, COPD Currently Using CPAP: No Currently Using BIPAP: No Cardiovascular History of Cardiac Disorders: Yes ([place] 2004; VARICOSE VEINS) Cardiac Disorders: Atrial Fibrillation, Coronary Artery Disease, Heart Attack, High Cholesterol, Hypertension, Irregular Heartbeat, Peripheral Vascular Neurological History of Neurological Disord: Yes Neurological Disorders: Headaches /Migraines 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 System Hx 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 Disorders: No Sexually Transmitted Disease: No HIV/AIDS: No Female 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 [employer]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, 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 Genitourinary History of Genitourinary Disor: No Gastrointestinal History of Gastrointestinal Di: No Musculoskeletal History of Musculoskeletal Dis: Yes ("PLATE IN LEFT WRIST"--NARCOTIC DEPENDENT) Musculoskeletal Disorders: Arthritis, Chronic Back Pain, Fractures Endocrine History of Endocrine Disorders: Yes Endocrine Disorders: Hypothyroidsim HEENT Loss of Vision: Denies Hearing Impairment: Denies Cancer History of Cancer: No Psychosocial History of Psychiatric Problem: Yes Behavioral Health Disorders: Anxiety, Bipolar, Depression Integumentary History of Skin or Integumenta: No Blood Transfusions History of Blood Disorders: No Adverse Reaction to a Blood Tr: No Family Medical History Family Medial History: Cancer 03 MOTHER, Onset:60 years & older son, Onset:10's - 15 Dementia 03 MOTHER, Onset:60 years & older Family history: Alzheimer's disease 03 MOTHER, Onset:60 years & older Family history: Hypertension 09 BROTHER, Onset:30's - 40 Family history: Thyroid disorder daughter, Onset:20's - 25 History of - respiratory disease 09 BROTHER, Onset:[place] Physical Exam Vital Signs Vital Signs - First Documented 06/09/17 15:22 Temp 98.0 Pulse 62 Resp 18 B/P (MAP) 136/77 (96) Pulse Ox 93 O2 Delivery Room Air Capillary Refill : Less Than 3 Seconds Progress/Results/Core Measures Suspected Sepsis Recent Fever Within 48 Hours: No Infection Criteria Present: None New/Unexplained Altered Menta: No Sepsis Screen: No Definite Risk Sepsis Diagnosis: SIRS Temperature:98.0 Pulse: 62 Respiratory Rate: 18 Blood Pressure 136 /77 Mean: 96 Results/Orders My Orders Orders - MOLLY TAN Hydrocodone/Apap 10/325 Tablet (Lortab 1 (06/09/17 16:23) Vital Signs/I&O Vital Sign - Last 12Hours 06/09/17 15:22 Temp 98.0 Pulse 62 Resp 18 B/P (MAP) 136/77 (96) Pulse Ox 93 O2 Delivery Room Air Capillary Refill : Less Than 3 Seconds Blood Pressure Mean: 96 Departure Impression Impression: Primary Impression: Nasal pain Additional Impression: Hx of epistaxis Disposition: 01 HOME, SELF-CARE Condition: Improved Departure-Patient Inst. Decision time for Depature: 16:47 Referrals: GEETHA RODGERS MD, FLOYD R MD (PCP/Family) Primary Care Physician Patient Instructions: NO INSTRUCTIONS GIVEN Add. Discharge Instructions: All discharge instructions reviewed with patient and/or family. Voiced understanding. Medications as instructed. Continue current medications and orders as instructed yesterday in the emergency department. Follow-up with Dr. Rodgers Wednesday as previously scheduled. Return to the emergency department for worsened symptoms or any other concerns. Scripts Amoxicillin/Potassium Clav (Amox Tr-K Clv 875-125 mg Tab) 1 Each Tablet 1 EACH PO BID, #14 TAB 0 Refills Prov: MOLLY TAN 06/09/17 Hydrocodone Bit/Acetaminophen (Hydrocodone/Acetaminophen 5/325mg Tablet) 1 Tab Tab 1 TAB PO Q4H Y for pain, #20 TAB 0 Refills Prov: MOLLY TAN 06/09/17 MOLLY TAN Jun 09, 2017 16:10
[2017-06-09] MEDS ORDERED: HYDROcodone/APAP 10 MG/325 MG (LORTAB) TAB PO STA (16:23)
[2017-06-09] MEDS ORDERED: ACHD5005 PO (16:49)
[2017-06-09] MEDS ORDERED: AMOX1TAB12 PO (16:50)
[2017-06-09 16:58] VITALS: BP 136/77
--- OUTSIDE RECORDS SUMMARY | 2017-06-11 09:05 | XMS REPORT | Continuity of Care Document ---
Author Author [facility] Organization [facility] Address Unknown Phone Unavailable Allergies Active Description Code Type Severity Reaction Onset Reported/Identified Relationship to Patient Clinical Status Yes NKDA NKDA Mild N/ A 10/13/2008 Yes No Known Drug Allergies [id number] Drug Allergy Unknown N/A 04/02/2015 Medications There [...] INFARCT 09/29/2010 Ot 414.01 CORONARY ATHEROSCLEROSIS OF [place] CORON 09/29/2010 Ot 427.31 ATRIAL FIBRILLATION 09/29/2010 [...] 786.05 SHORTNESS OF BREATH 05/21/2013 JONNATHAN MALLOY CLASSROOM TECHNOLOGY COACH Ot V58.61 ANTICOAGULANTS,LT,CURRENT USE 05/21/2013 JONNATHAN MALLOY APRN Ot V58.69 OTH MED,LT,CURRENT USE 05/25/2013 SAIDA HAMEED MD R Ot 244.9 HYPOTHYROIDISM NOS 05/25/2013 SAIDA HAMEED MD R Ot 250.00 DIAB MICHAEL WO [...] MD Ot 427.31 ATRIAL FIBRILLATION 05/25/2013 SAIDA HAMEDE MD R Ot 478.19 OTHER DISEASE OF [...] HAMEED MD Ot 401.9 HYPERTENSION NOS 08/25/2013 ASIDA HAMEED MD R Ot 412 OLD MYOCARDIAL [...] Oliveira Ot 729.81 10/25/2014 JAKE SALAZAR TRACY Bredna Ot 278.01 10/25/2014 JAKE SALAZAR TRACY M [...] SAIDA R Ot 729.5 05/07/2015 ZARI LU, SAIDA R Ot 729.81 05/07/2015 JAKE SALAZAR TRCAY M Ot 278.01 05/07/2015 TRACY JOSEPH DO M Ot 311 05/07/2015 JAKE SALAZAR TRACY M Ot 427.31 05/07/2015 JAKE SALAZAR TRACY M Ot 496 05/07/2015 ZARI LU, SAIDA R Ot J40 05/27/2015 ZARI LU, SAIDA R Ot J40 06/16/2015 CHRISTIANO LU, SANDRITA Mejia Ot J44.1 CHRONIC OBSTRUCTIVE PULMONARY DISEASE W 08/14/2015 BAIMA, ESTELA L WHEEL PRESSER Ot G47.30 SLEEP APNEA, UNSPECIFIED 08/14/2015 BAIMA, ESTELA L WHEEL PRESSER Ot I48.91 UNSPECIFIED ATRIAL FIBRILLATION 08/14/2015 BAIMA, ESTELA L WHEEL PRESSER Ot J44.9 CHRONIC OBSTRUCTIVE PULMONARY DISEASE, U 08/14/2015 BAIMA, ESTELA L WHEEL PRESSER Ot R06.00 DYSPNEA, UNSPECIFIED 08/14/2015 BAIMA, ESTELA L WHEEL PRESSER Ot R07.9 CHEST PAIN, UNSPECIFIED 08/14/2015 BAIMA, ESTELA L WHEEL PRESSER Ot Z79.01 LAP LAYER (CURRENT) USE OF ANTICOAGULANT 09/03/2015 BAIMA, ESTELA L WHEEL PRESSER Ot G47.30 SLEEP APNEA, UNSPECIFIED 09/03/2015 BAIMA, ESTELA L WHEEL PRESSER Ot I48.91 UNSPECIFIED ATRIAL FIBRILLATION 09/03/2015 BAIMA, ESTELA L WHEEL PRESSER Ot J44.9 CHRONIC OBSTRUCTIVE PULMONARY DISEASE, U 09/03/2015 BAIMA, ESTELA L WHEEL PRESSER Ot R06.00 DYSPNEA, UNSPECIFIED 09/03/2015 BAIMA, ESTELA L WHEEL PRESSER Ot R07.9 CHEST PAIN, UNSPECIFIED 09/03/2015 BAIMA, ESTELA L WHEEL PRESSER Ot Z79.01 LAP LAYER (CURRENT) USE OF ANTICOAGULANT 09/20/2015 MELLYMA ESTELA L WHEEL PRESSER Ot G47.30 SLEEP APNEA, UNSPECIFIED 09/20/2015 BAIMA ESTELA L WHEEL PRESSER Ot I48.91 UNSPECIFIED ATRIAL FIBRILLATION 09/20/2015 MELLYMALUIGIESTELA L WHEEL PRESSER Ot J44.9 CHRONIC OBSTRUCTIVE PULMONARY DISEASE, U 09/20/2015 MELLYLUIGI MARTINEZHER L WHEEL PRESSER Ot R06.00 DYSPNEA, UNSPECIFIED 09/20/2015 BAIMA, ESTELA L WHEEL PRESSER Ot R07.9 CHEST PAIN, UNSPECIFIED 09/20/2015 BAIMALUIIGESTELA L WHEEL PRESSER Ot Z79.01 RESIDENTIAL (CURRENT) USE OF ANTICOAGULANT 02/25/2016 Ot 709.9 [...] ACUTE OR CH 02/25/2016 RITA ESTELA L WHEEL PRESSER Ot G47.30 SLEEP APNEA, UNSPECIFIED 02/25/2016 MELLYMA ESTELA L WHEEL PRESSER Ot I48.91 UNSPECIFIED ATRIAL FIBRILLATION 02/25/2016 MELLYJUAN ESTELA L WHEEL PRESSER Ot J44.9 CHRONIC OBSTRUCTIVE PULMONARY DISEASE, U 02/25/2016 MELLYMA ESTELA L WHEEL PRESSER Ot R06.00 DYSPNEA, UNSPECIFIED 02/25/2016 MELLYMA ESTELA L WHEEL PRESSER Ot R07.9 CHEST PAIN, UNSPECIFIED 02/25/2016 ESTELA SALINAS WHEEL PRESSER Ot Z79.01 LAP LAYER (CURRENT) USE OF ANTICOAGULANT 02/26/2016 ZARI LU, [...] SPECIFIED ACUTE OR CH 03/03/2016 ESTELA SALINAS WHEEL PRESSER Ot G47.30 SLEEP APNEA, UNSPECIFIED 03/03/2016 ESTELA SALINAS WHEEL PRESSER Ot I48.91 UNSPECIFIED ATRIAL FIBRILLATION 03/03/2016 ESTELA SALINAS WHEEL PRESSER Ot J44.9 CHRONIC OBSTRUCTIVE PULMONARY DISEASE, U 03/03/2016 ESTELA SALINAS WHEEL PRESSER Ot R06.00 DYSPNEA, UNSPECIFIED 03/03/2016 ESTELA SALINAS WHEEL PRESSER Ot R07.9 CHEST PAIN, UNSPECIFIED 03/03/2016 ESTELA SALINAS WHEEL PRESSER Ot Z79.01 RESIDENTIAL (CURRENT) USE OF ANTICOAGULANT 03/03/2016 SAIDA HAMEED [...] UNSPECIFIED 05/13/2016 NICK DODEANNAA K Ot Z79.82 RESIDENTIAL (CURRENT) USE OF ASPIRIN 05/13/2016 NICK DO CARISSA K Ot Z79.891 RESIDENTIAL (CURRENT) USE OF OPIATE ANALGE 05/13/2016 NICK DO CARISSA K Ot Z79.899 OTHER RESIDENTIAL (CURRENT) DRUG THERAPY 05/14/2016 NICK DODEANNAA K [...] 05/14/2016 NICK DO CARISSA K Ot Z79.82 LAP LAYER (CURRENT) USE OF ASPIRIN 05/14/2016 NICK DO CARISSA K Ot Z79.891 LAP LAYER (CURRENT) USE OF OPIATE ANALGE 05/14/2016 NICK DEANNA SALAZARA K Ot Z79.899 OTHER RESIDENTIAL (CURRENT) DRUG THERAPY 08/25/2016 Ot 709.9 SKIN DISORDER NOS 08/25/2016 Ot V72.63 PRE- PROCEDURAL LABORATORY EXAMINATION 08/25/2016 Ot V74.8 SCREEN- BACTERIAL DIS NEC 08/25/2016 Ot V58.61 ANTICOAGULANTS,LT,CURRENT USE 08/25/2016 Ot V58.83 ENCOUNTER FOR THERAPEUTIC DRUG MONITORIN 08/25/2016 ZHANE LU, JAMES Rodríguez Ot 286.9 COAGULAT DEFECT NEC/NOS 08/25/2016 ZARI LU, SAIDA Oliveira Ot 729.5 PAIN IN LIMB 08/25/2016 ASIDA HAMEED MD Ot 729.81 SWELLING OF LIMB 08/25/2016 TRACY JOSEPH DO Ot 278.01 MORBID OBESITY 08/25/2016 TRACY JOSEPH DO Ot 311 DEPRESSIVE DISORDER NEC 08/25/2016 TRACY JOSEPH DO Ot 427.31 ATRIAL FIBRILLATION 08/25/2016 TRACY JOSEPH DO Ot 496 CHR AIRWAY OBSTRUCT NEC 08/25/2016 SAIDA HAMEED MD Ot J40 BRONCHITIS, NOT SPECIFIED ACUTE OR CH 08/25/2016 MELLYMAESTELA L WHEEL PRESSER Ot G47.30 SLEEP APNEA, UNSPECIFIED 08/25/2016 BAIMA ESTELA L WHEEL PRESSER Ot I48.91 UNSPECIFIED ATRIAL FIBRILLATION 08/25/2016 ESTELA SALINAS L WHEEL PRESSER Ot J44.9 CHRONIC OBSTRUCTIVE PULMONARY DISEASE, U 08/25/2016 ESTELA SALINAS L WHEEL PRESSER Ot R06.00 DYSPNEA, UNSPECIFIED 08/25/2016 MELLYMAESTELA L WHEEL PRESSER Ot R07.9 CHEST PAIN, UNSPECIFIED 08/25/2016 ESTELA SALINAS L WHEEL PRESSER Ot Z79.01 RESIDENTIAL (CURRENT) USE OF ANTICOAGULANT 08/25/2016 SAIDA HAMEED MD Ot R06.2 WHEEZING 08/25/2016 Ot V58.61 ANTICOAGULANTS,LT,CURRENT USE 08/25/2016 Ot V58.83 ENCOUNTER FOR THERAPEUTIC DRUG MONITORIN 08/25/2016 JAMES PHELAN MD Ot I10 ESSENTIAL (PRIMARY) HYPERTENSION 08/25/2016 JAMES PHELAN MD Ot I25.10 ATHSCL HEART DISEASE OF [place] CORONARY 08/25/2016 JAMES PHELAN MD Ot J44.9 CHRONIC OBSTRUCTIVE PULMONARY DISEASE, U 08/25/2016 JAMES PHELAN MD Ot M79.662 PAIN IN LEFT LOWER LEG 08/25/2016 JAMES PHELAN MD Ot R07.9 CHEST PAIN, UNSPECIFIED 08/25/2016 JAMES PHELAN MD Ot R42 DIZZINESS AND GIDDINESS 08/25/2016 JAMES PHELAN MD Ot Z79.899 OTHER RESIDENTIAL (CURRENT) DRUG THERAPY 08/26/2016 JAMES PHELAN MD Ot I10 ESSENTIAL (PRIMARY) HYPERTENSION 08/26/2016 JAMES PHELAN MD Ot I25.10 ATHSCL HEART DISEASE OF [place] CORONARY 08/26/2016 JAMES PHELAN MD, Ot J44.9 CHRONIC OBSTRUCTIVE PULMONARY DISEASE, U 08/26/2016 JAMES PHELAN MD Ot M79.662 PAIN IN LEFT LOWER LEG 08/26/2016 JAMES PHELAN MD Ot R07.9 CHEST PAIN, UNSPECIFIED 08/26/2016 JAMES PHELAN MD, Ot R42 DIZZINESS AND GIDDINESS 08/26/2016 JAMES PHELAN MD, Ot Z79.899 OTHER LAP [place]AYER (CURRENT) DRUG THERAPY 11/30/2016 HUGH CORDOVA MD [...] MD Ot I25.10 ATHSCL HEART DISEASE OF [place] CORONARY 11/30/2016 HUGH CORDOVA MD Ot I25.2 OLD MYOCARDIAL INFARCTION 11/30/2016 HUGH CORDVOA MD Ot I48.91 UNSPECIFIED ATRIAL FIBRILLATION 11/30/2016 [...] UNSPECIFIED 11/30/2016 HUGH CORDOVA MD Ot Z79.01 RESIDENTIAL (CURRENT) USE OF ANTICOAGULANT 11/30/2016 HUGH CORDOVA MD Ot Z79.82 RESIDENTIAL (CURRENT) USE OF ASPIRIN 11/30/2016 HUGH CORDOVA [...] MD Ot I25.10 ATHSCL HEART DISEASE OF [place] CORONARY 11/30/2016 HUGH CORDOVA MD Ot I25.2 [...] UNSPECIFIED 11/30/2016 HUGH CORDOVA MD, Ot Z79.01 RESIDENTIAL (CURRENT) USE OF ANTICOAGULANT 11/30/2016 HUGH CORDOVA MD, Ot Z79.82 LAP LAYER (CURRENT) USE OF ASPIRIN 11/30/2016 HUGH CORDOVA [...] APRN Ot I25.10 ATHSCL HEART DISEASE OF [place] CORONARY 01/12/2017 JONNATHAN MALLOY APRN Ot I25.2 OLD MYOCARDIAL INFARCTION 01/12/2017 JONNATHAN MALLOY APRN Ot I48.91 UNSPECIFIED ATRIAL FIBRILLATION 01/12/2017 JONNATHAN MALLOY APRN Ot J45.909 UNSPECIFIED ASTHMA, UNCOMPLICATED 01/12/2017 JONNATHAN MALLOY APRN Ot K21.9 GASTRO-ESOPHAGEAL REFLUX DISEASE WITHOUT 01/12/2017 JONNATHAN MALLOY APRN Ot R06.00 DYSPNEA, UNSPECIFIED 01/12/2017 JONNATHAN MALLOY APRN Ot Z79.82 LAP LAYER (CURRENT) USE OF ASPIRIN 01/12/2017 JONNATHAN MALLOY [...] APRN Ot I25.10 ATHSCL HEART DISEASE OF [place] CORONARY 01/14/2017 JONNATHAN MALLOY APRN Ot I25.2 OLD MYOCARDIAL INFARCTION 01/14/2017 JONNATHAN MALLOY APRN Ot I48.91 UNSPECIFIED ATRIAL FIBRILLATION 01/14/2017 JONNATHAN MALLOY APRN Ot J45.909 UNSPECIFIED ASTHMA, UNCOMPLICATED 01/14/2017 JONNATHAN MALLOY APRN Ot K21.9 GASTRO-ESOPHAGEAL REFLUX DISEASE WITHOUT 01/14/2017 JONNATHAN MALLOY APRN Ot R06.00 DYSPNEA, UNSPECIFIED 01/14/2017 JONNATHAN MALLOY APRN Ot Z79.82 RESIDENTIAL (CURRENT) USE OF ASPIRIN 01/14/2017 JONNATHAN MALLOY [...] APRN Ot I25.10 ATHSCL HEART DISEASE OF [place] CORONARY 01/18/2017 JONNATHAN MALLOY APRN Ot I25.2 OLD MYOCARDIAL INFARCTION 01/18/2017 JONNATHAN MALLOY APRN Ot I48.91 UNSPECIFIED ATRIAL FIBRILLATION 01/18/2017 JONNATHAN MALLOY APRN Ot J45.909 UNSPECIFIED ASTHMA, UNCOMPLICATED 01/18/2017 JONNATHAN MALLOY APRN Ot K21.9 GASTRO-ESOPHAGEAL REFLUX DISEASE WITHOUT 01/18/2017 JONNATHAN MALLOY APRN Ot R06.00 DYSPNEA, UNSPECIFIED 01/18/2017 JONNATHAN MALLOY APRN Ot Z79.82 LAP LAYER (CURRENT) USE OF ASPIRIN 01/18/2017 JONNATHAN MALLOY [...] K Ot I25.10 ATHSCL HEART DISEASE OF [place] CORONARY 03/28/2017 CARISSA ROMERO DO Ot I25.2 [...] KNEE 03/28/2017 CARISSA ROMERO DO Ot Z79.01 RESIDENTIAL (CURRENT) USE OF ANTICOAGULANT 03/28/2017 CARISSA ROMERO DO Ot Z79.82 RESIDENTIAL (CURRENT) USE OF ASPIRIN 03/28/2017 CARISSA ROMERO [...] DO Ot F31.9 BIPOLAR DISORDER, UNSPECIFIED 03/31/2017 CARISSA ROMERO DO Ot F41.9 ANXIETY DISORDER, UNSPECIFIED 03/31/2017 CARISSA ROMERO DO Ot G43.909 MIGRAINE, UNSP, NOT INTRACTABLE, WITHOUT 03/31/2017 CARISSA ROMERO DO Ot G47.33 OBSTRUCTIVE SLEEP APNEA (ADULT) (PEDIATR 03/31/2017 CARISSA ROMERO DO Ot I10 ESSENTIAL (PRIMARY) HYPERTENSION 03/31/2017 CARISSA ROMERO DO Ot I25.10 ATHSCL HEART DISEASE OF [place] CORONARY 03/31/2017 CARISSA ROMERO DO Ot I25.2 [...] 03/31/2017 NICK SALAZAR CARISSA Mejia Ot Z79.01 LAP LAYER (CURRENT) USE OF ANTICOAGULANT 03/31/2017 NICK SALAZAR CARISSA Mejia Ot Z79.82 RESIDENTIAL (CURRENT) USE OF ASPIRIN 03/31/2017 NICK SALAZAR [...] culture - 08/25/16 16:00 Bacterial urine culture [id number] NRG COLONY COUNT 10,000/ML - 100,000/ML NRG [...] Status Pt. Type Provider Facility Loc./Unit Complaint [id number] 04/29/2017 15:16:00 04/29/2017 23:59:59 CLS Outpatient SCARLET GARRETT APRN [facility] RAD M554.42 [id number] 03/28/2017 15:34:00 03/28/2017 18:53:00 DIS Emergency CARISSA ROMERO DO [facility] ER L LEG SWELLING/PAIN [id number] 01/12/2017 15:46:00 01/12/2017 17:08:00 DIS Emergency JONNATHAN MALLOY CLASSROOM TECHNOLOGY COACH [facility] ER TROUBLE BREATHING; HEAVINESS IN CHEST [id number] 11/29/2016 23:07:00 11/30/2016 02:36:00 DIS Emergency TASHA LU, HUGH Ba [facility] ER D/N FEVER WEAK [id number] 08/25/2016 14:30:00 08/25/2016 18:32:00 DIS Emergency ZHANE LU, JAMES Rodríguez [facility] ER DIZZINESS/NAUSEA/ SHAKEY LEFT CALF PAIN [id number] 05/12/2016 23:38:00 05/13/2016 01:24:00 DIS Emergency NICK CARISSA SALAZAR [facility] ER N/V/D [id number] 02/25/2016 14:56:00 02/25/2016 23:59:59 CLS Outpatient ZARI LU, SAIDA Oliveira [facility] RAD WHEEZING [id number] 08/13/2015 08:10:00 08/13/2015 23:59:59 CLS Outpatient ESTELA SALINAS [facility] CARD CHEST PAIN, PALPITATIONS,AFIB [id number] 06/16/2015 12:33:00 06/16/2015 14:55:00 DIS Emergency SANDRITA ALVARADO MD [facility] ER SOB/COPD [id number] 04/05/2015 09:50:00 04/05/2015 12:07:00 DIS Emergency ODGERS MD, SANDRITA K [facility] ER SOA [id number] 04/02/2015 12:02:00 04/04/2015 09:45:00 DIS Inpatient SAIDA HAMEED MD [facility] 4TH COPD,EXACERBATION [id number] 02/21/2015 15:46:00 02/21/2015 23:59:59 CLS Outpatient SAIDA HAMEED MD [facility] RAD BRONCHITIS [id number] 11/20/2014 23:05:00 11/22/2014 09:45:00 DIS Inpatient SAIDA HAMEED MD [facility] 4TH BLEACH FUMES EXPOSURE, COPD EXACERBATION [id number] 10/25/2014 14:21:00 10/25/2014 19:30:00 DIS Emergency JAMES PHELAN MD [facility] ER LEFT GROIN PAIN [id number] 10/13/2013 20:46:00 10/14/2013 00:44:00 DIS Emergency JULIANA HERNANDEZ DO [facility] ER L LEG PAIN; CHEST PAIN [id number] 09/25/2013 12:37:00 09/25/2013 23:59:59 CLS Outpatient TRACY JOSEPH DO [facility] RT COPD,AFIB [id number] 08/25/2013 00:35:00 08/25/2013 12:05:00 DIS Inpatient SAIDA HAMEED MD [facility] CSD CHEST PAIN, SUBTHERAPEUTIC INR [id number] 07/04/2013 11:07:00 07/04/2013 23:59:59 CLS Outpatient SAIDA HAMEED MD [facility] RAD SWELLING,PAIN [id number] 06/28/2013 16:29:00 06/28/2013 17:24:00 DIS Emergency CARISSA ROMERO DO [facility] ER VOMITING,COUGH, POST EXPOSURE TO CLOROX [id number] 05/21/2013 20:58:00 05/25/2013 10:45:00 DIS Inpatient SAIDA HAMEED MD [facility] 4TH COPD EXACERBATION; WEAKNESS [id number] 05/21/2013 13:28:00 05/21/2013 15:42:00 DIS Emergency JONNATHAN MALLOY APRN [facility] ER SOA CONGESTION R ARM PAIN [id number] 03/24/2013 17:10:00 03/25/2013 09:50:00 DIS Inpatient VIELKA MORENO MD [facility] ICU CHEST PAIN [id number] 03/01/2013 01:10:00 03/01/2013 14:29:00 DIS Inpatient SAIDA HAMEED MD [facility] 4TH ACUTE EXACERBATION OF COPD [id number] 02/13/2013 12:59:00 02/13/2013 14:18:00 DIS Emergency JONNATHAN MALLOY APRN [facility] ER LEFT LEG/GROIN PAIN [id number] 12/27/2012 13:08:00 12/27/2012 15:00:00 DIS Emergency JONNATHAN MALLOY APRN [facility] ER RIGHT ARM NUMBNESS/LEFT THIGH KNOT [id number] 12/02/2012 08:45:00 12/02/2012 23:59:59 CLS Outpatient JAMES PHELAN MD [facility] LAB SUPRATHERAPEUTIC INR [id number] 11/30/2012 15:06:00 11/30/2012 18:11:00 DIS Emergency JAMES PHELAN MD [facility] ER SOA,HEADACHE, DIZZINESS [id number] 10/30/2012 11:45:00 10/30/2012 23:59:59 CLS Outpatient [id number] 08/20/2012 10:02:00 08/20/2012 23:59:59 CLS Outpatient [id number] 10/25/2014 14:22:00 Document Registration [id number] 10/25/2014 14:22:00 Document Registration [id number] 10/25/2014 14:21:00 Document Registration [id number] 10/25/2014 14:21:00 Document Registration [id number] 10/25/2014 14:21:00 Document Registration [id number] 10/25/2014 14:21:00 Document Registration [id number] 10/25/2014 14:21:00 Document Registration [id number] 10/25/2014 14:21:00 Document Registration [id number] 10/25/2014 14:21:00 Document Registration [id number] 07/01/2014 22:30:00 Document Registration [id number] 06/13/2012 19:15:00 Document Registration [id number] 02/23/2012 01:00:00 Document Registration [id number] 12/03/2011 00:00:00 Document Registration [id number] 11/12/2011 21:51:00 Document Registration [id number] 10/13/2011 08:28:00 Document Registration [id number] 09/03/2011 12:33:00 Document Registration [id number] 08/21/2011 20:45:00 Document Registration [id number] 03/24/2011 20:48:00 Document Registration [id number] 01/24/2011 21:19:00 Document Registration [id number] 09/28/2010 18:20:00 Document Registration [id number] 04/29/2010 21:21:00 Document Registration [id number] 02/10/2010 09:58:00 Document Registration [id number] 01/29/2010 14:43:00 Document Registration [id number] 11/25/2009 11:02:00 Document Registration [id number] 11/13/2009 23:33:00 Document Registration [id number] 10/28/2009 11:54:00 Document Registration [id number] 09/27/2009 10:28:00 Document Registration [id number] 09/20/2009 15:31:00 Document Registration [id number] 07/29/2009 13:39:00 Document Registration [id number] 07/29/2009 12:23:00 Document Registration
== END 2017-06-09 16:58 | disposition home or self-care (01) ==
LOC: EDUNIT# 14:58 → ER 15:00
DX: J34.89 Other specified disorders of nose and nasal sinuses (principal); J45.909 Unspecified asthma, uncomplicated; I25.10 Atherosclerotic heart disease of native coronary artery without angina pectoris; G47.30 Sleep apnea, unspecified; I48.91 Unspecified atrial fibrillation; I25.2 Old myocardial infarction; I10 Essential (primary) hypertension; E78.00 Pure hypercholesterolemia, unspecified; I73.9 Peripheral vascular disease, unspecified; G43.909 Migraine, unspecified, not intractable, without status migrainosus; E03.9 Hypothyroidism, unspecified; F41.9 Anxiety disorder, unspecified; F31.9 Bipolar disorder, unspecified; Z87.01 Personal history of pneumonia (recurrent); Z87.09 Personal history of other diseases of the respiratory system; Z90.710 Acquired absence of both cervix and uterus; Z90.49 Acquired absence of other specified parts of digestive tract; Z98.51 Tubal ligation status; Z79.82 Long term (current) use of aspirin; Z79.01 Long term (current) use of anticoagulants
CPT/HCPCS: 99283

== ENCOUNTER 2018-02-15 09:42 | Emergency (ER) | payer MEDICARE, MEDICAID ==
[~2018-02-15] VITALS: Ht 177.8 cm; Wt 131.5 kg
[~2018-02-15 09:42] MED LIST changes: +ACHD5005 PO; +AMOX1TAB12 PO
[2018-02-15] MEDS ORDERED: ASPIRIN 81 MG CHEW (CHILDREN'S ASA) PO ONE (10:00)
--- OUTSIDE RECORDS SUMMARY | 2018-02-15 10:01 | XMS REPORT ---
Author Author MADDIE STRICKLAND Organization [facility] Address Unknown Care Team Providers Care Exhaust Tender Name Role Phone MADDIE STRICKLAND Unavailable PROBLEMS Unknown Problems ALLERGIES No Known Allergies ENCOUNTERS Encounter Location Date Diagnosis [facility] [address] [facility] [id number] [phone] Nov, Dental caries K02.9 [facility] [address] [phone] Oct, Dental examination Z01.20 IMMUNIZATIONS No Known Immunizations SOCIAL HISTORY Never Assessed REASON FOR VISIT TE PLAN OF CARE Activity Details Follow Up prn Reason:TAHIR/prophy VITAL SIGNS Blood pressure systolic 125 mmHg 2017-12-02 Blood pressure diastolic 84 mmHg 2017-12-02 MEDICATIONS Medication Instructions Dosage Frequency Start Date End Date Duration Status Potassium Active Clindamycin HCl Active Symbicort Active Acetaminophen Active Eliquis Active Metoprolol Succinate Active Meclizine HCl Active Furosemide Active Aspir-81 Active Citalopram Hydrobromide Active Hydrocodone-Acetaminophen Active Simvastatin Active Multi For Her Active Levothyroxine Sodium Active RESULTS No Results PROCEDURES Procedure Date Ordered Result Body Site EXTRAC ERUPTED TOOTH/EXPOSED ROOT Dec 02, 2017 SURG REMOVAL ERUPTED TOOTH Dec 02, 2017 INSTRUCTIONS MEDICATIONS ADMINISTERED No Known Medications MEDICAL (GENERAL) HISTORY Type Description Date Medical History Afib Medical History hbp Medical History Throid problems Medical History Heart Attack 2005 Medical History Blood thinners Medical History Vericose veins Medical History Bipolar Surgical History Veins stripped in both legs Surgical History Hysterectomy Surgical History Heart Cath Hospitalization History Heart attack Hospitalization History Hysterectomy
--- OUTSIDE RECORDS SUMMARY | 2018-02-15 10:01 | XMS REPORT ---
Author Author MADDIE STRICKLAND [facility] Address Unknown Care Team Providers Care Heel Sorter Name Role Phone MADDIE STRICKLAND Unavailable PROBLEMS Unknown Problems ALLERGIES No Known Allergies ENCOUNTERS Encounter Location Date Diagnosis [facility] [address] [facility] [id number] [id number] Nov, Dental caries K02.9 [facility] [address] [id number] Oct, Dental examination Z01.20 IMMUNIZATIONS No Known Immunizations SOCIAL HISTORY Never Assessed REASON FOR VISIT FACIAL SWELLING PLAN OF CARE Activity Details Follow Up 1 Week Reason:45 min extraction VITAL SIGNS Blood pressure systolic 118 mmHg 2017-11-16 Blood pressure diastolic 92 mmHg 2017-11-16 MEDICATIONS Medication Instructions Dosage Frequency Start Date End Date Duration Status Acetaminophen Active Hydrocodone-Acetaminophen Active Aspir-81 Active Citalopram Hydrobromide Active Furosemide Active Simvastatin Active Potassium Active Eliquis Active Meclizine HCl Active Levothyroxine Sodium Active Metoprolol Succinate Active Clindamycin HCl Active Symbicort Active Multi For Her Active RESULTS No Results PROCEDURES Procedure Date Ordered Result Body Site LTD ORAL EVALUATION - PROBLEM FOCUS November 16, 2017 PANORAMIC FILM SEE ALSO CODE [id number] November 16, 2017 INSTRUCTIONS MEDICATIONS ADMINISTERED No Known Medications [...]
--- OUTSIDE RECORDS SUMMARY | 2018-02-15 10:09 | XMS REPORT | Continuity of Care Document ---
Author Author [facility] Organization [facility] Address Unknown Phone Unavailable Allergies Active Description Code Type Severity Reaction Onset Reported/Identified Relationship to Patient Clinical Status Yes NKDA NKDA Mild N/ A 10/13/2008 Yes No Known Drug Allergies [id number] Drug Allergy Unknown N/A 04/02/2015 Medications There [...] INFARCT 09/29/2010 Ot 414.01 CORONARY ATHEROSCLEROSIS OF [place] CORON 09/29/2010 Ot 427.31 ATRIAL FIBRILLATION 09/29/2010 [...] 786.05 SHORTNESS OF BREATH 05/21/2013 JONNATHAN MALLOY RN DERMATOLOGY Ot V58.61 ANTICOAGULANTS,LT,CURRENT USE 05/21/2013 JONNATHAN MALLOY [...] JAMES Rodríguez Ot 286.9 04/02/2015 ZARI LU, ASIDA Oliveira Ot 729.5 04/02/2015 ZARI LU, SAIDA [...] SAIDA R Ot 729.81 05/07/2015 JAKE SALAZAR TRACY M Ot 278.01 05/07/2015 TRACY JOSEPH DO M Ot 311 05/07/2015 JAKE SALAZAR TRACY M Ot 427.31 05/07/2015 JAKE SALAZAR TRACY M Ot 496 05/07/2015 ZARI LU, SAIDA R Ot J40 05/27/2015 ZARI LU, SAIDA R Ot J40 06/16/2015 CHRISTIANO UL, SANDRITA Mejia Ot J44.1 CHRONIC OBSTRUCTIVE PULMONARY DISEASE W 08/14/2015 BAIMA, ESTELA L SPECIAL EDUCATION SUPERVISOR Ot G47.30 SLEEP APNEA, UNSPECIFIED 08/14/2015 BAIMA, ESTELA L SPECIAL EDUCATION SUPERVISOR Ot I48.91 UNSPECIFIED ATRIAL FIBRILLATION 08/14/2015 BAIMA, ESTELA L SPECIAL EDUCATION SUPERVISOR Ot J44.9 CHRONIC OBSTRUCTIVE PULMONARY DISEASE, U 08/14/2015 BAIMA, ESTELA L SPECIAL EDUCATION SUPERVISOR Ot R06.00 DYSPNEA, UNSPECIFIED 08/14/2015 BAIMA, ESTELA L SPECIAL EDUCATION SUPERVISOR Ot R07.9 CHEST PAIN, UNSPECIFIED 08/14/2015 BAIMA, ESTELA L SPECIAL EDUCATION SUPERVISOR Ot Z79.01 WIND OPERATIONS MANAGER (CURRENT) USE OF ANTICOAGULANT 09/03/2015 BAIMA, ESTELA L SPECIAL EDUCATION SUPERVISOR Ot G47.30 SLEEP APNEA, UNSPECIFIED 09/03/2015 BAIMA, ESTELA L SPECIAL EDUCATION SUPERVISOR Ot I48.91 UNSPECIFIED ATRIAL FIBRILLATION 09/03/2015 BAIMA, ESTELA L SPECIAL EDUCATION SUPERVISOR Ot J44.9 CHRONIC OBSTRUCTIVE PULMONARY DISEASE, U 09/03/2015 BAIMA, ESTELA L SPECIAL EDUCATION SUPERVISOR Ot R06.00 DYSPNEA, UNSPECIFIED 09/03/2015 BAIMA, ESTELA L SPECIAL EDUCATION SUPERVISOR Ot R07.9 CHEST PAIN, UNSPECIFIED 09/03/2015 BAIMA, ESTELA L SPECIAL EDUCATION SUPERVISOR Ot Z79.01 WIND OPERATIONS MANAGER (CURRENT) USE OF ANTICOAGULANT 09/20/2015 MELLYMA ESTELA L SPECIAL EDUCATION SUPERVISOR Ot G47.30 SLEEP APNEA, UNSPECIFIED 09/20/2015 BAIMA ESTELA L SPECIAL EDUCATION SUPERVISOR Ot I48.91 UNSPECIFIED ATRIAL FIBRILLATION 09/20/2015 MELLYMALUIGIESTELA L SPECIAL EDUCATION SUPERVISOR Ot J44.9 CHRONIC OBSTRUCTIVE PULMONARY DISEASE, U 09/20/2015 MELLYLUIGI MARTINEZHER L SPECIAL EDUCATION SUPERVISOR Ot R06.00 DYSPNEA, UNSPECIFIED 09/20/2015 BAIMA, ESTELA L SPECIAL EDUCATION SUPERVISOR Ot R07.9 CHEST PAIN, UNSPECIFIED 09/20/2015 BAIMALUIGIESTELA L SPECIAL EDUCATION SUPERVISOR Ot Z79.01 RESIDENTIAL (CURRENT) USE OF ANTICOAGULANT [...] ACUTE OR CH 02/25/2016 RITA ESTELA L SPECIAL EDUCATION SUPERVISOR Ot G47.30 SLEEP APNEA, UNSPECIFIED 02/25/2016 MELLYMA ESTELA L SPECIAL EDUCATION SUPERVISOR Ot I48.91 UNSPECIFIED ATRIAL FIBRILLATION 02/25/2016 MELLYJUAN ESTELA L SPECIAL EDUCATION SUPERVISOR Ot J44.9 CHRONIC OBSTRUCTIVE PULMONARY DISEASE, U 02/25/2016 MELLYMA ESTELA L SPECIAL EDUCATION SUPERVISOR Ot R06.00 DYSPNEA, UNSPECIFIED 02/25/2016 MELLYMA ESTELA L SPECIAL EDUCATION SUPERVISOR Ot R07.9 CHEST PAIN, UNSPECIFIED 02/25/2016 ESTELA SALINAS SPECIAL EDUCATION SUPERVISOR Ot Z79.01 WIND OPERATIONS MANAGER (CURRENT) USE OF ANTICOAGULANT 02/26/2016 ZARI LU, [...] SPECIFIED ACUTE OR CH 03/03/2016 ESTELA SALINAS SPECIAL EDUCATION SUPERVISOR Ot G47.30 SLEEP APNEA, UNSPECIFIED 03/03/2016 ESTELA SALINAS SPECIAL EDUCATION SUPERVISOR Ot I48.91 UNSPECIFIED ATRIAL FIBRILLATION 03/03/2016 ESTELA SALINAS SPECIAL EDUCATION SUPERVISOR Ot J44.9 CHRONIC OBSTRUCTIVE PULMONARY DISEASE, U 03/03/2016 ESTELA SALINAS SPECIAL EDUCATION SUPERVISOR Ot R06.00 DYSPNEA, UNSPECIFIED 03/03/2016 ESTELA SALINAS SPECIAL EDUCATION SUPERVISOR Ot R07.9 CHEST PAIN, UNSPECIFIED 03/03/2016 ESTELA SALINAS SPECIAL EDUCATION SUPERVISOR Ot Z79.01 RESIDENTIAL (CURRENT) USE OF ANTICOAGULANT [...] Ot I10 ESSENTIAL (PRIMARY) HYPERTENSION 05/14/2016 NICK DOCARISAS K Ot J44.9 CHRONIC OBSTRUCTIVE PULMONARY DISEASE, U 05/14/2016 NICK DEANNA SALAZARA K Ot K52.9 NONINFECTIVE GASTROENTERITIS AND COLITIS 05/14/2016 NICK DODEANNAA K Ot R11.2 NAUSEA WITH VOMITING, UNSPECIFIED 05/14/2016 NICK DO CARISSA K Ot Z79.82 WIND OPERATIONS MANAGER (CURRENT) USE OF ASPIRIN 05/14/2016 NICK DO CARISSA K Ot Z79.891 WIND OPERATIONS MANAGER (CURRENT) USE OF OPIATE ANALGE 05/14/2016 NICK [...] SPECIFIED ACUTE OR CH 08/25/2016 MELLYMAESTELA L SPECIAL EDUCATION SUPERVISOR Ot G47.30 SLEEP APNEA, UNSPECIFIED 08/25/2016 BAIMA ESTELA L SPECIAL EDUCATION SUPERVISOR Ot I48.91 UNSPECIFIED ATRIAL FIBRILLATION 08/25/2016 ESTELA SALINAS L SPECIAL EDUCATION SUPERVISOR Ot J44.9 CHRONIC OBSTRUCTIVE PULMONARY DISEASE, U 08/25/2016 ESTELA SALINAS L SPECIAL EDUCATION SUPERVISOR Ot R06.00 DYSPNEA, UNSPECIFIED 08/25/2016 MELLYMAESTELA L SPECIAL EDUCATION SUPERVISOR Ot R07.9 CHEST PAIN, UNSPECIFIED 08/25/2016 ESTELA SALINAS L SPECIAL EDUCATION SUPERVISOR Ot Z79.01 RESIDENTIAL (CURRENT) USE OF ANTICOAGULANT 08/25/2016 SAIDA HAMEED MD Ot R06.2 WHEEZING 08/25/2016 Ot V58.61 ANTICOAGULANTS,LT,CURRENT USE 08/25/2016 Ot V58.83 ENCOUNTER FOR THERAPEUTIC DRUG MONITORIN 08/25/2016 JAMES PHELAN MD Ot I10 ESSENTIAL (PRIMARY) HYPERTENSION 08/25/2016 JAMES PHELAN MD Ot I25.10 ATHSCL HEART DISEASE OF [place] CORONARY 08/25/2016 JAMES PHELAN MD Ot J44.9 [...] MD Ot I25.10 ATHSCL HEART DISEASE OF [place] CORONARY 08/26/2016 JAMES PHELAN MD, Ot J44.9 CHRONIC OBSTRUCTIVE PULMONARY DISEASE, U 08/26/2016 JAMES PHELAN MD Ot M79.662 PAIN IN LEFT LOWER LEG 08/26/2016 JAMES PHELAN MD Ot R07.9 CHEST PAIN, UNSPECIFIED 08/26/2016 JAMES PHELAN MD, Ot R42 DIZZINESS AND GIDDINESS 08/26/2016 JAMES PHELAN MD, Ot Z79.899 OTHER WIND OPERATIONS MANAGER (CURRENT) DRUG THERAPY 11/30/2016 HUGH CORDOVA MD [...] MD Ot I25.10 ATHSCL HEART DISEASE OF [place] CORONARY 11/30/2016 HUGH CORDOVA MD Ot I25.2 [...] MD Ot I25.10 ATHSCL HEART DISEASE OF [place] CORONARY 11/30/2016 HUGH CORDOVA MD Ot I25.2 [...] ANTICOAGULANT 11/30/2016 HUGH CORDOVA MD, Ot Z79.82 WIND OPERATIONS MANAGER (CURRENT) USE OF ASPIRIN 11/30/2016 HUGH CORDOVA [...] APRN Ot I25.10 ATHSCL HEART DISEASE OF [place] CORONARY 01/12/2017 JONNATHAN MALLOY APRN Ot I25.2 OLD MYOCARDIAL INFARCTION 01/12/2017 JONNATHAN MALLOY APRN Ot I48.91 UNSPECIFIED ATRIAL FIBRILLATION 01/12/2017 JONNATHAN MALLOY APRN Ot J45.909 UNSPECIFIED ASTHMA, UNCOMPLICATED 01/12/2017 JONNATHAN MALLOY APRN Ot K21.9 GASTRO-ESOPHAGEAL REFLUX DISEASE WITHOUT 01/12/2017 JONNATHAN MALLOY APRN Ot R06.00 DYSPNEA, UNSPECIFIED 01/12/2017 JONNATHAN MALLOY APRN Ot Z79.82 WIND OPERATIONS MANAGER (CURRENT) USE OF ASPIRIN 01/12/2017 JONNATHAN MALLOY [...] APRN Ot I25.10 ATHSCL HEART DISEASE OF [place] CORONARY 01/14/2017 JONNATHAN MALLOY APRN Ot I25.2 [...] APRN Ot I25.10 ATHSCL HEART DISEASE OF [place] CORONARY 01/18/2017 JONNATHAN MALLOY APRN Ot I25.2 OLD MYOCARDIAL INFARCTION 01/18/2017 JONNATHAN MALLOY APRN Ot I48.91 UNSPECIFIED ATRIAL FIBRILLATION 01/18/2017 JONNATHAN MALLOY APRN Ot J45.909 UNSPECIFIED ASTHMA, UNCOMPLICATED 01/18/2017 JONNATHAN MALLOY APRN Ot K21.9 GASTRO-ESOPHAGEAL REFLUX DISEASE WITHOUT 01/18/2017 JONNATHAN MALLOY APRN Ot R06.00 DYSPNEA, UNSPECIFIED 01/18/2017 JONNATHAN MALLOY APRN Ot Z79.82 WIND OPERATIONS MANAGER (CURRENT) USE OF ASPIRIN 01/18/2017 JONNATHAN MALLOY [...] K Ot I25.10 ATHSCL HEART DISEASE OF [place] CORONARY 03/28/2017 CARISSA ROMERO DO Ot I25.2 [...] DO Ot I25.10 ATHSCL HEART DISEASE OF [place] CORONARY 03/31/2017 CARISSA ROMERO DO Ot I25.2 OLD MYOCARDIAL INFARCTION 03/31/2017 CARISSA ROMERO DO Ot I48.91 UNSPECIFIED ATRIAL FIBRILLATION 03/31/2017 CARISSA ROMERO DO Ot I80.02 PHLEBITIS AND THOMBOPHLB OF SUPERFIC VES 03/31/2017 NICK SALAZAR CARISSA Roberto Ot J44.9 CHRONIC OBSTRUCTIVE PULMONARY DISEASE, U 03/31/2017 NICK SALAZAR CARISSA Roberto Ot M19.90 UNSPECIFIED OSTEOARTHRITIS, UNSPECIFIED 03/31/2017 NICK SALAZAR CARISSA Mejia Ot M25.562 PAIN IN LEFT KNEE 03/31/2017 NICK SALAZAR CARISSA Roberto Ot Z79.01 WIND OPERATIONS MANAGER (CURRENT) USE OF ANTICOAGULANT 03/31/2017 NICK SALAZAR CARISSA K Ot Z79.82 RESIDENTIAL (CURRENT) USE OF ASPIRIN 03/31/2017 NICK SALAZAR CARISSA Roberto Ot Z87.01 PERSONAL HISTORY OF PNEUMONIA (RECURRENT 03/31/2017 NICK SALAZAR CARISSA Roberto Ot Z87.09 PERSONAL HISTORY OF OTHER DISEASES OF TH 03/31/2017 NICK SALAZAR CARISSA Roberto Ot Z90.49 ACQUIRED ABSENCE OF OTHER SPECIFIED PART 03/31/2017 NICK SALAZARDEANNAA Roberto Ot Z90.710 ACQUIRED ABSENCE OF BOTH CERVIX AND UTER 03/31/2017 NICK SALAZAR CARISSA Mejia Ot Z98.51 TUBAL LIGATION STATUS 05/24/2017 SCARLET GARRETT APRN Ot M51.36 OTHER INTERVERTEBRAL DISC DEGENERATION, 05/24/2017 SCARLET GARRETT APRN Ot 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 06/08/2017 TASHA LU, HUGH Ba Ot E03.9 HYPOTHYROIDISM, UNSPECIFIED 06/08/2017 TASHA LU, HUGH Ba Ot E78.00 PURE HYPERCHOLESTEROLEMIA, UNSPECIFIED 06/08/2017 HUGH CORDOVA MD Ot F31.9 BIPOLAR DISORDER, UNSPECIFIED 06/08/2017 HUGH CORDOVA MD Ot F41.9 ANXIETY DISORDER, UNSPECIFIED 06/08/2017 TASHA LU, HUGH Ba Ot G43.909 MIGRAINE, UNSP, NOT INTRACTABLE, WITHOUT 06/08/2017 HUGH CORDOVA MD Ot G47.30 SLEEP APNEA, UNSPECIFIED 06/08/2017 HUGH CORDOVA MD Ot I10 ESSENTIAL (PRIMARY) HYPERTENSION 06/08/2017 HUGH CORDOVA MD Ot I25.10 ATHSCL HEART DISEASE OF [place] CORONARY 06/08/2017 HUGH CORDOVA MD, Ot I25.2 OLD MYOCARDIAL INFARCTION 06/08/2017 HUGH CORDOVA MD, Ot I48.91 UNSPECIFIED ATRIAL FIBRILLATION 06/08/2017 HUGH CORDOVA MD, Ot I73.9 PERIPHERAL VASCULAR DISEASE, UNSPECIFIED 06/08/2017 HUGH CORDOVA MD, Ot J44.9 CHRONIC OBSTRUCTIVE PULMONARY DISEASE, U 06/08/2017 HUGH CORDOVA MD Ot R04.0 EPISTAXIS 06/08/2017 HUGH CORDOVA MD, Ot Z79.01 RESIDENTIAL (CURRENT) USE OF ANTICOAGULANT 06/08/2017 HUGH CORDOVA MD, Ot Z79.82 WIND OPERATIONS MANAGER (CURRENT) USE OF ASPIRIN 06/08/2017 HUGH CORDOVA MD, Ot Z87.01 PERSONAL HISTORY OF PNEUMONIA (RECURRENT 06/08/2017 HUGH CORDOVA MD, Ot Z90.710 ACQUIRED ABSENCE OF BOTH CERVIX AND UTER 06/08/2017 HUGH CORDOVA MD, Ot Z98.51 TUBAL LIGATION STATUS 06/09/2017 MOLLY ARANA Ot E03.9 HYPOTHYROIDISM, UNSPECIFIED 06/09/2017 MOLLY ARANA Ot E78.00 PURE HYPERCHOLESTEROLEMIA, UNSPECIFIED 06/09/2017 MOLLY ARANA Ot F31.9 BIPOLAR DISORDER, UNSPECIFIED 06/09/2017 MOLLY ARANA Ot F41.9 ANXIETY DISORDER, UNSPECIFIED 06/09/2017 MOLLY ARANA Ot G43.909 MIGRAINE, UNSP, NOT INTRACTABLE, WITHOUT 06/09/2017 MOLLY ARANA Ot G47.30 SLEEP APNEA, UNSPECIFIED 06/09/2017 MOLLY ARANA Ot I10 ESSENTIAL (PRIMARY) HYPERTENSION 06/09/2017 MOLLY ARANA Ot I25.10 ATHSCL HEART DISEASE OF [place] CORONARY 06/09/2017 MOLLY ARANA Ot I25.2 OLD MYOCARDIAL INFARCTION 06/09/2017 MOLLY ARANA Ot I48.91 UNSPECIFIED ATRIAL FIBRILLATION 06/09/2017 MOLLY ARANA Ot I73.9 PERIPHERAL VASCULAR DISEASE, UNSPECIFIED 06/09/2017 MOLLY ARANA Ot J34.89 OTHER SPECIFIED DISORDERS OF NOSE AND NA 06/09/2017 MOLLY ARANA Ot J45.909 UNSPECIFIED ASTHMA, UNCOMPLICATED 06/09/2017 MOLLY ARANA Ot R04.0 EPISTAXIS 06/09/2017 MOLLY ARANA Ot Z79.01 WIND OPERATIONS MANAGER (CURRENT) USE OF ANTICOAGULANT 06/09/2017 MOLLY ARANA Ot Z79.82 RESIDENTIAL (CURRENT) USE OF ASPIRIN 06/09/2017 MOLLY ARANA Ot Z87.01 PERSONAL HISTORY OF PNEUMONIA (RECURRENT 06/09/2017 MOLLY ARANA Ot Z87.09 PERSONAL HISTORY OF OTHER DISEASES OF TH 06/09/2017 MOLLY ARANA Ot Z90.49 ACQUIRED ABSENCE OF OTHER SPECIFIED PART 06/09/2017 MOLLY ARANA Ot Z90.710 ACQUIRED ABSENCE OF BOTH CERVIX AND UTER 06/09/2017 MOLLY ARANA Ot Z98.51 TUBAL LIGATION STATUS 06/10/2017 TASHA LU, HUGH Ba Ot E03.9 HYPOTHYROIDISM, UNSPECIFIED 06/10/2017 HUGH CORDOVA MD Ot E78.00 PURE HYPERCHOLESTEROLEMIA, UNSPECIFIED 06/10/2017 HUGH CORDOVA MD Ot F31.9 BIPOLAR DISORDER, UNSPECIFIED 06/10/2017 HUGH CORDOVA MD Ot F41.9 ANXIETY DISORDER, UNSPECIFIED 06/10/2017 HUGH CORDOVA MD Ot G43.909 MIGRAINE, UNSP, NOT INTRACTABLE, WITHOUT 06/10/2017 HUGH CORDOVA MD Ot G47.30 SLEEP APNEA, UNSPECIFIED 06/10/2017 HUGH CRODOVA MD Ot I10 ESSENTIAL (PRIMARY) HYPERTENSION 06/10/2017 HUGH CORDOVA MD Ot I25.10 ATHSCL HEART DISEASE OF [place] CORONARY 06/10/2017 HUGH CORDOVA MD Ot I25.2 OLD MYOCARDIAL INFARCTION 06/10/2017 HUGH CORDOVA MD Ot I48.91 UNSPECIFIED ATRIAL FIBRILLATION 06/10/2017 HUGH CORDOVA MD Ot I73.9 PERIPHERAL VASCULAR DISEASE, UNSPECIFIED 06/10/2017 HUGH CORDOVA MD, Ot J44.9 CHRONIC OBSTRUCTIVE PULMONARY DISEASE, U 06/10/2017 HUGH CORDOVA MD Ot R04.0 EPISTAXIS 06/10/2017 HUGH CORDOVA MD, Ot Z79.01 RESIDENTIAL (CURRENT) USE OF ANTICOAGULANT 06/10/2017 HUGH CORDOVA MD Ot Z79.82 RESIDENTIAL (CURRENT) USE OF ASPIRIN 06/10/2017 HUGH CORDOVA MD, Ot Z87.01 PERSONAL HISTORY OF PNEUMONIA (RECURRENT 06/10/2017 HUGH CORDOVA MD, Ot Z90.710 ACQUIRED ABSENCE OF BOTH CERVIX AND UTER 06/10/2017 HUGH CORDOVA MD, Ot Z98.51 TUBAL LIGATION STATUS 06/11/2017 MOLLY ARANA Ot E03.9 HYPOTHYROIDISM, UNSPECIFIED 06/11/2017 MOLLY ARANA Ot E78.00 PURE HYPERCHOLESTEROLEMIA, UNSPECIFIED 06/11/2017 MOLLY ARANA Ot F31.9 BIPOLAR DISORDER, UNSPECIFIED 06/11/2017 MOLLY ARANA Ot F41.9 ANXIETY DISORDER, UNSPECIFIED 06/11/2017 MOLLY ARANA Ot G43.909 MIGRAINE, UNSP, NOT INTRACTABLE, WITHOUT 06/11/2017 MOLLY ARANA Ot G47.30 SLEEP APNEA, UNSPECIFIED 06/11/2017 MOLLY ARANA Ot I10 ESSENTIAL (PRIMARY) HYPERTENSION 06/11/2017 MOLLY ARANA Ot I25.10 ATHSCL HEART DISEASE OF [place] CORONARY 06/11/2017 MOLLY ARANA Ot I25.2 OLD MYOCARDIAL INFARCTION 06/11/2017 MOLLY ARANA Ot I48.91 UNSPECIFIED ATRIAL FIBRILLATION 06/11/2017 MOLLY ARANA Ot I73.9 PERIPHERAL VASCULAR DISEASE, UNSPECIFIED 06/11/2017 MOLLY ARANA Ot J34.89 OTHER SPECIFIED DISORDERS OF NOSE AND NA 06/11/2017 MOLLY ARANA Ot J45.909 UNSPECIFIED ASTHMA, UNCOMPLICATED 06/11/2017 MOLLY ARANA Ot R04.0 EPISTAXIS 06/11/2017 MOLLY ARANA Ot Z79.01 WIND OPERATIONS MANAGER (CURRENT) USE OF ANTICOAGULANT 06/11/2017 MOLLY ARANA Ot Z79.82 WIND OPERATIONS MANAGER (CURRENT) USE OF ASPIRIN 06/11/2017 MOLLY ARANA Ot Z87.01 PERSONAL HISTORY OF PNEUMONIA (RECURRENT 06/11/2017 MOLLY ARANA Ot Z87.09 PERSONAL HISTORY OF OTHER DISEASES OF TH 06/11/2017 MOLLY ARANA Ot Z90.49 ACQUIRED ABSENCE OF OTHER SPECIFIED PART 06/11/2017 MOLLY ARANA Ot Z90.710 ACQUIRED ABSENCE OF BOTH CERVIX AND UTER 06/11/2017 MOLLY ARANA Ot Z98.51 TUBAL LIGATION STATUS 07/01/2017 SCARLET GARRETT APRN Ot M51.36 OTHER INTERVERTEBRAL DISC DEGENERATION, 07/01/2017 SCARLET GARRETT APRN Ot 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 07/18/2017 CARISSA ROMERO DO Ot E03.9 HYPOTHYROIDISM, UNSPECIFIED 07/18/2017 DEANNA ROMERO DOA K Ot E78.00 PURE HYPERCHOLESTEROLEMIA, UNSPECIFIED 07/18/2017 NICK SALAZAR CARISSA K Ot F31.9 BIPOLAR DISORDER, UNSPECIFIED 07/18/2017 DEANNA ROMERO DOA Roberto Ot F41.9 ANXIETY DISORDER, UNSPECIFIED 07/18/2017 NICK SALAZAR CARISSA K Ot G43.909 MIGRAINE, UNSP, NOT INTRACTABLE, WITHOUT 07/18/2017 NICK SALAZAR CARISSA K Ot G47.33 OBSTRUCTIVE SLEEP APNEA (ADULT) (PEDIATR 07/18/2017 DEANNA ROMERO DOA K Ot I10 ESSENTIAL (PRIMARY) HYPERTENSION 07/18/2017 NICK DO CARISSA K Ot I25.10 ATHSCL HEART DISEASE OF [place] CORONARY 07/18/2017 CARISSA ROMERO DO Ot I25.2 OLD MYOCARDIAL INFARCTION 07/18/2017 CARISSA ROMERO DO K Ot I48.91 UNSPECIFIED ATRIAL FIBRILLATION 07/18/2017 DEANNA ROMERO DOA K Ot I80.02 PHLEBITIS AND THOMBOPHLB OF SUPERFIC VES 07/18/2017 CARISSA ROMERO DO Ot J44.9 CHRONIC OBSTRUCTIVE PULMONARY DISEASE, U 07/18/2017 CARISSA ROMERO DO Ot M19.90 UNSPECIFIED OSTEOARTHRITIS, UNSPECIFIED 07/18/2017 CARISSA ROMERO DO Ot M25.562 PAIN IN LEFT KNEE 07/18/2017 CARISSA ROMERO DO Ot Z79.01 WIND OPERATIONS MANAGER (CURRENT) USE OF ANTICOAGULANT 07/18/2017 CARISSA ROMERO DO Ot Z79.82 RESIDENTIAL (CURRENT) USE OF ASPIRIN 07/18/2017 CARISSA ROMERO DO, Ot Z87.01 PERSONAL HISTORY OF PNEUMONIA (RECURRENT 07/18/2017 CARISSA ROMERO DO Ot Z87.09 PERSONAL HISTORY OF OTHER DISEASES OF TH 07/18/2017 CARISSA RMOERO DO Ot Z90.49 ACQUIRED ABSENCE OF OTHER SPECIFIED PART 07/18/2017 CARISSA ROMERO DO Ot Z90.710 ACQUIRED ABSENCE OF BOTH CERVIX AND UTER 07/18/2017 CARISSA ROMERO DO Ot Z98.51 TUBAL LIGATION STATUS Procedures There is no data. Results Test [...] culture - 08/25/16 16:00 Bacterial urine culture [id number] NRG COLONY COUNT 10,000/ML - 100,000/ML NRG [...] Status Pt. Type Provider Facility Loc./Unit Complaint [id number] 06/09/2017 15:00:00 06/09/2017 16:58:00 DIS Emergency MOLLY ARANA [facility] ER NEEDS ANTIBIOTIC HERE LAST NIGHT FOR NOSE BLEED [id number] 06/08/2017 21:55:00 06/08/2017 23:20:00 DIS Emergency HUGH CORDOVA MD [facility] ER NOSE BLEED FOR 45 MINUTES - BLOOD THINNERS [id number] 04/29/2017 15:16:00 04/29/2017 23:59:59 CLS Outpatient SCARLET GARRETT APRN [facility] RAD M554.42 [id number] 03/28/2017 15:34:00 03/28/2017 18:53:00 DIS Outpatient CARISSA ROMERO DO [facility] ER L LEG SWELLING/PAIN [id number] 01/12/2017 15:46:00 01/12/2017 17:08:00 DIS Emergency JONNATHAN MALLOY APRN [facility] ER TROUBLE BREATHING; HEAVINESS IN CHEST [id number] 11/29/2016 23:07:00 11/30/2016 02:36:00 DIS Emergency HUGH CORDOVA MD [facility] ER D/N FEVER WEAK [id number] 08/25/2016 14:30:00 08/25/2016 18:32:00 DIS Emergency JAMES PHELAN MD [facility] ER DIZZINESS/NAUSEA/ SHAKEY LEFT CALF PAIN [id number] 05/12/2016 23:38:00 05/13/2016 01:24:00 DIS Emergency CARISSA ROMERO DO [facility] ER N/V/D [id number] 02/25/2016 14:56:00 02/25/2016 23:59:59 CLS Outpatient ZARI LU, SAIDA Oliveira [facility] RAD WHEEZING [id number] 08/13/2015 08:10:00 08/13/2015 23:59:59 CLS Outpatient ESTELA SALINAS [facility] CARD CHEST PAIN, PALPITATIONS,AFIB [id number] 06/16/2015 12:33:00 06/16/2015 14:55:00 DIS Emergency SANDRITA ALVARADO MD [facility] ER SOB/COPD [id number] 04/05/2015 09:50:00 04/05/2015 12:07:00 DIS Emergency CHRISTIANO LU, SANDRITA Mejia [facility] ER SOA [id number] 04/02/2015 12:02:00 04/04/2015 09:45:00 DIS Inpatient SAIDA HAMEED MD [facility] 4TH COPD,EXACERBATION [id number] 02/21/2015 15:46:00 02/21/2015 23:59:59 CLS Outpatient SAIDA HAMEED MD [facility] RAD BRONCHITIS [id number] 11/20/2014 23:05:00 11/22/2014 09:45:00 DIS Inpatient SAIDA HAMEED MD [facility] 4TH BLEACH FUMES EXPOSURE, COPD EXACERBATION [id number] 10/25/2014 14:21:00 10/25/2014 19:30:00 DIS Emergency JAMES PHELAN MD [facility] ER LEFT GROIN PAIN [id number] 10/13/2013 20:46:00 10/14/2013 00:44:00 DIS Emergency JULIANA HERNANDEZ DO [facility] ER L LEG PAIN; CHEST PAIN [id number] 09/25/2013 12:37:00 09/25/2013 23:59:59 CLS Outpatient TRACY JOSEPH DO [facility] RT COPD,AFIB [id number] 08/25/2013 00:35:00 08/25/2013 12:05:00 DIS Inpatient SAIDA HAMEED MD [facility] CSD CHEST PAIN, SUBTHERAPEUTIC INR [id number] 07/04/2013 11:07:00 07/04/2013 23:59:59 CLS Outpatient SAIDA HAMEED MD [facility] RAD SWELLING,PAIN [id number] 06/28/2013 16:29:00 06/28/2013 17:24:00 DIS Emergency CARISSA ROMERO DO [facility] ER VOMITING,COUGH, POST EXPOSURE TO CLOROX [id number] 05/21/2013 20:58:00 05/25/2013 10:45:00 DIS Inpatient SAIDA HAMEED MD [facility] 4TH COPD EXACERBATION; WEAKNESS [id number] 05/21/2013 13:28:00 05/21/2013 15:42:00 DIS Emergency JONNATHAN MALLOY RN DERMATOLOGY [facility] ER SOA CONGESTION R ARM PAIN [id number] 03/24/2013 17:10:00 03/25/2013 09:50:00 DIS Inpatient VIELKA MORENO MD [facility] ICU CHEST PAIN [id number] 03/01/2013 01:10:00 03/01/2013 14:29:00 DIS Inpatient SAIDA HAMEED MD [facility] 4TH ACUTE EXACERBATION OF COPD [id number] 02/13/2013 12:59:00 02/13/2013 14:18:00 DIS Emergency JONNATHAN MALLOY APRN [facility] ER LEFT LEG/GROIN PAIN [id number] 12/27/2012 13:08:00 12/27/2012 15:00:00 DIS Emergency JONNATHAN MALLOY APRN [facility] ER RIGHT ARM NUMBNESS/LEFT THIGH KNOT [id number] 12/02/2012 08:45:00 12/02/2012 23:59:59 CLS Outpatient JAMES PHELAN MD [facility] LAB SUPRATHERAPEUTIC INR [id number] 11/30/2012 15:06:00 11/30/2012 18:11:00 DIS Emergency JAMES PHELAN MD [facility] ER SOA,HEADACHE, DIZZINESS [id number] 10/30/2012 11:45:00 10/30/2012 23:59:59 CLS Outpatient [id number] 08/20/2012 10:02:00 08/20/2012 23:59:59 CLS Outpatient [id number] 02/15/2018 09:44:00 ACT Emergency JAMES PHELAN MD [facility] ER STOMACH PAIN; CHEST PAIN [id number] 10/25/2014 14:22:00 Document Registration [id number] 10/25/2014 14:22:00 Document Registration [id number] 10/25/2014 14:21:00 Document Registration [id number] 10/25/2014 14:21:00 Document Registration [id number] 10/25/2014 14:21:00 Document Registration [id number] 10/25/2014 14:21:00 Document Registration [id number] 10/25/2014 14:21:00 Document Registration [id number] 10/25/2014 14:21:00 Document Registration [id number] 10/25/2014 14:21:00 Document Registration [id number] 07/01/2014 22:30:00 Document Registration [id number] 06/13/2012 19:15:00 Document Registration [id number] 02/23/2012 01:00:00 Document Registration [id number] 12/03/2011 00:00:00 Document Registration [id number] 11/12/2011 21:51:00 Document Registration [id number] 10/13/2011 08:28:00 Document Registration [id number] 09/03/2011 12:33:00 Document Registration [id number] 08/21/2011 20:45:00 Document Registration [id number] 03/24/2011 20:48:00 Document Registration [id number] 01/24/2011 21:19:00 Document Registration [id number] 09/28/2010 18:20:00 Document Registration [id number] 04/29/2010 21:21:00 Document Registration [id number] 02/10/2010 09:58:00 Document Registration [id number] 01/29/2010 14:43:00 Document Registration [id number] 11/25/2009 11:02:00 Document Registration [id number] 11/13/2009 23:33:00 Document Registration [id number] 10/28/2009 11:54:00 Document Registration [id number] 09/27/2009 10:28:00 Document Registration [id number] 09/20/2009 15:31:00 Document Registration [id number] 07/29/2009 13:39:00 Document Registration [id number] 07/29/2009 12:23:00 Document Registration [id number] 11/20/2014 19:15:56 ACT Document Registration [id number] 12/02/2017 15:15:00 12/02/2017 23:59:59 CLS Outpatient ELIE LAWTON [facility]
[2018-02-15] MEDS ORDERED: ONDA8TAB9 PO (10:57)
--- NOTE | 2018-02-15 10:58 | ED Abdominal Pain ---
General Chief Complaint: Abdominal/GI Problems Stated Complaint: STOMACH PAIN; CHEST PAIN Nursing Triage Note: ARRIVED VIA AMB TO ROOM 08 WITHOUT DIFFICULTY. COMPLAINS OF ABD PAIN WITH N/D STARTING LAST NIGHT. Sepsis Screen: No Definite Risk Source of Information: Patient Exam Limitations: No Limitations History of Present Illness Date Seen by Provider: Feb 15, 2018 Time Seen by Provider: 10:53 Initial Comments To ER per private vehicle with reports of nausea without vomiting, suprapubic abdominal pain and diarrhea that began last night after drinking milk. She is not normally intolerant of milk or dairy products. No blood in her stools. Timing/Duration: 1-2 Days Severity/Quality: Moderate Location: Suprapubic Radiation: No Radiation Associated Symptoms: Nausea/Vomiting Allergies and Home Medications Allergies Coded Allergies: No Known Drug Allergies (Verified , 04/02/15) Home Medications Albuterol Sulfate/Ipratropium 3 Ml Solution, 3 ML IH Q4H PRN for SHORTNESS OF BREATH, (Reported) Amoxicillin/Potassium Clav 1 Each Tablet, 1 EACH PO BID Prescribed by: MOLLY TAN on 06/09/17 1650 Apixaban 5 Mg Tablet, 5 MG PO BID, (Reported) Aspirin 81 Mg Tablet.dr, 81 MG PO DAILY, (Reported) Citalopram Hydrobromide 40 Mg Tablet, 40 MG PO DAILY, (Reported) Cyclobenzaprine HCl 10 Mg Tablet, 10 MG PO TID PRN for MUSCLE SPASMS, (Reported) Famotidine 20 Mg Tablet, 20 MG PO BID Prescribed by: JONNATHAN MALLOY on 01/12/17 1654 Furosemide 40 Mg Tablet, 40 MG PO DAILY, (Reported) Hydrocodone Bit/Acetaminophen 1 Tab Tab, 1 TAB PO Q4H PRN for pain Prescribed by: MOLLY TAN on 06/09/17 1649 Levothyroxine Sodium 25 Mcg Tablet, 25 MCG PO DAILY, (Reported) Meclizine HCl 25 Mg Tablet, 25 MG PO TID PRN for DIZZINESS, (Reported) Metoprolol Tartrate 50 Mg Tablet, 50 MG PO BID, (Reported) Multivit-Min/FA/Lycopene/Lut 1 Each Tablet, 1 TAB PO DAILY, (Reported) Ondansetron 8 Mg Tab.rapdis, 8 MG PO Q6H PRN for NAUSEA/VOMITING Prescribed by: JONNATHAN MALLOY on 02/15/18 1057 Potassium Chloride 20 Meq Tab.er.prt, 20 MEQ PO DAILY, (Reported) Prednisone 20 Mg Tab, 20 MG PO UD Prescribed by: SANDRITA ALVARADO on 06/16/15 1451 Simvastatin 20 Mg Tablet, 20 MG PO HS, (Reported) Patient Home Medication List Home Medication List Reviewed: Yes Review of Systems Review of Systems Constitutional: see HPI; No chills, No fever EENTM: No Symptoms Reported Respiratory: No Symptoms Reported Cardiovascular: No Symptoms Reported Gastrointestinal: See HPI, Abdominal Pain, Diarrhea, Nausea; Denies Vomiting Genitourinary: No Symptoms Reported Musculoskeletal: no symptoms reported Skin: no symptoms reported Psychiatric/Neurological: No Symptoms Reported Endocrine: No Symptoms Reported Hematologic/Lymphatic: No Symptoms Reported Past Bqjyywt-Gzwzmn-Iifryc Hx Patient Social History Alcohol Use: Denies Use Recreational Drug Use: No Smoking Status: Never a Smoker 2nd Hand Smoke Exposure: No Recent Foreign Travel: No Contact w/Someone Who Travel: No Recent Infectious Disease Expo: No Recent Hopitalizations: No Immunizations Up To Date Tetanus Booster (TDap): Unknown PED Vaccines UTD: No Date of Pneumonia Vaccine: Apr 26, 2012 Date of Influenza Vaccine: Feb 24, 2015 Seasonal Allergies Seasonal Allergies: No Past Medical History Surgeries: Yes (BILATERAL LEG VEIN STRIPPING ; MULTIPLE CARDIAC CATHS; LEFT WRIST REPAIR) Appendectomy, Cardiac, Ear Surgery, Hysterectomy, Orthopedic, Tubal Ligation, Vascular Surgery Respiratory: Yes Asthma, Pneumonia, Chronic Bronchitis, Sleep Apnea, COPD Currently Using CPAP: No Currently Using BIPAP: No Cardiac: Yes ([place] 2004; VARICOSE VEINS) Atrial Fibrillation, Coronary Artery Disease, Heart Attack, High Cholesterol, Hypertension, Irregular Heartbeat, Peripheral Vascular Neurological: Yes Headaches /Migraines 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 Disorders: No Female 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 History: Hysterectomy, Menopausal Sexually Transmitted Disease: No HIV/AIDS: No Genitourinary: No Gastrointestinal: No Musculoskeletal: Yes ("PLATE IN LEFT WRIST"--NARCOTIC DEPENDENT) Arthritis, Chronic Back Pain, Fractures Endocrine: Yes Hypothyroidsim Loss of Vision: Denies Hearing Impairment: Denies Cancer: No Psychosocial: Yes Anxiety, Bipolar, Depression Integumentary: No Blood Disorders: No Adverse Reaction/Blood Tranf: No Family Medical History Cancer 03 MOTHER, Onset:60 years & older son, Onset:10's - 15 Dementia 03 MOTHER, Onset:60 years & older Family history: Alzheimer's disease 03 MOTHER, Onset:60 years & older Family history: Hypertension 09 BROTHER, Onset:30's - 40 Family history: Thyroid disorder daughter, Onset:20's - 25 History of - respiratory disease 09 BROTHER, Onset: No Pertinent Family Hx Physical Exam Vital Signs Vital Signs - First Documented 02/15/18 10:15 Temp 98.0 Pulse 60 Resp 16 B/P (MAP) 186/84 (118) Pulse Ox 96 O2 Delivery Room Air Capillary Refill : Less Than 3 Seconds Height/Weight/BMI Height: 5'10.00" Weight: 290lbs. 0.0oz. 131.155220lo; 41.6 BMI Method:Stated General Appearance: WD/WN, no apparent distress HEENT: PERRL/EOMI, normal ENT inspection Neck: non-tender, full range of motion Respiratory: no respiratory distress, no accessory muscle use Cardiovascular: regular rate, rhythm, no murmur Gastrointestinal: normal bowel sounds, soft, tenderness (suprapubic) Extremities: normal range of motion, non-tender Neurologic/Psychiatric: alert, normal mood/affect, oriented x 3 Skin: normal color, warm/dry Progress/Results/Core Measures Results/Orders Lab Results Laboratory Tests Test 02/15/18 11:00 Range/Units White Blood Count 6.9 4.3-11.0 10^3/uL Red Blood Count 4.16 L 4.35-5.85 10^6/uL Hemoglobin 12.4 11.5-16.0 G/DL Hematocrit 39 35-52 % Mean Corpuscular Volume 93 80-99 FL Mean Corpuscular Hemoglobin 30 25-34 PG Mean Corpuscular Hemoglobin Concent 32 32-36 G/DL Red Cell Distribution Width 13.6 10.0-14.5 % Platelet Count 170 130-400 10^3/uL Mean Platelet Volume 9.4 7.4-10.4 FL Neutrophils (%) (Auto) 73 42-75 % Lymphocytes (%) (Auto) 17 12-44 % Monocytes (%) (Auto) 7 0-12 % Eosinophils (%) (Auto) 3 0-10 % Basophils (%) (Auto) 0 0-10 % Neutrophils # (Auto) 5.0 1.8-7.8 X 10^3 Lymphocytes # (Auto) 1.2 1.0-4.0 X 10^3 Monocytes # (Auto) 0.5 0.0-1.0 X 10^3 Eosinophils # (Auto) 0.2 0.0-0.3 10^3/uL Basophils # (Auto) 0.0 0.0-0.1 10^3/uL Prothrombin Time 13.7 12.2-14.7 SEC INR Comment 1.1 0.8-1.4 Activated Partial Thromboplast Time 30 24-35 SEC Sodium Level 141 135-145 MMOL/L Potassium Level 3.6 3.6-5.0 MMOL/L Chloride Level 104 98-107 MMOL/L Carbon Dioxide Level 28 21-32 MMOL/L Anion Gap 9 5-14 MMOL/L Blood Urea Nitrogen 12 7-18 MG/DL Creatinine 0.77 0.60-1.30 MG/DL Estimat Glomerular Filtration Rate > 60 BUN/Creatinine Ratio 16 Glucose Level 113 H 70-105 MG/DL Calcium Level 9.0 8.5-10.1 MG/DL Corrected Calcium 9.1 8.5-10.1 MG/DL Magnesium Level 2.2 1.8-2.4 MG/DL Total Bilirubin 0.5 0.1-1.0 MG/DL Aspartate Amino Transf (AST/SGOT) 19 5-34 U/L Alanine Aminotransferase (ALT/SGPT) 16 0-55 U/L Alkaline Phosphatase 86 40-136 U/L Myoglobin 42.9 10.0-92.0 NG/ML Troponin I < 0.30 <0.30 NG/ML Total Protein 6.5 6.4-8.2 GM/DL Albumin 3.9 3.2-4.5 GM/DL My Orders Orders - JONNATHAN MALLOY APRN Ns Iv 1000 Ml (Sodium Chloride 0.9%) (02/15/18 11:00) Fentanyl Injection (Sublimaze Injection (02/15/18 11:00) Ct Abdomen/Pelvis W (02/15/18 11:45) Iohexol Injection (Omnipaque 350 Mg/Ml 1 (02/15/18 12:00) Ns (Ivpb) (Sodium Chloride 0.9%) (02/15/18 12:00) Medications Given in ED Current Medications Medications Dose Ordered Sig/Brianna Route Start Time Stop Time Status Last Admin Dose Admin Fentanyl Citrate 50 mcg ONCE ONCE IVP 02/15/18 11:00 02/15/18 11:01 DC 02/15/18 11:26 50 MCG Iohexol 100 ml ONCE ONCE IV 02/15/18 12:00 02/15/18 12:01 DC 02/15/18 11:59 100 ML Sodium Chloride 250 ml ONCE ONCE IV 02/15/18 12:00 02/15/18 12:01 DC 02/15/18 11:59 80 ML Vital Signs/I&O 02/15/18 10:15 Temp 98.0 Pulse 60 Resp 16 B/P (MAP) 186/84 (118) Pulse Ox 96 O2 Delivery Room Air Blood Pressure Mean: 118 Departure Impression Primary Impression: Colitis Disposition: HOME, SELF-CARE Condition: Stable Departure-Patient Inst. Decision time for Depature: 10:55 Referrals: SAIDA HAMEED MD (PCP/Family) Primary Care Physician Patient Instructions: Diarrhea and Traveler's Diarrhea, Adult (DC) Add. Discharge Instructions: 1. Nausea medication as needed 2. Drink plenty of fluids to stay hydrated. Pedialyte or water is just fine. 3. Return to ER for intolerable pain bloody diarrhea or other concerns . Antibiotic and pain medication as directed. L discharge instructions reviewed with patient and/or family. Voiced understanding. Scripts Metronidazole (Metronidazole) 500 Mg Tablet 500 MG PO TID, #21 TAB Prov: JONNATHAN MALLOY APRN 02/15/18 Hydrocodone/Acetaminophen ([place] 5-325 Tablet) 1 Each Tablet 1 EACH PO Q6H PRN for PAIN-MODERATE MDD 10, #10 TAB Prov: JONNATHAN MALLOY APRN 02/15/18 Sulfamethoxazole/Trimethoprim (Bactrim Ds Tablet) 1 Each Tablet 1 EACH PO BID, #14 TAB Prov: JONNATHAN MALLOY APRN 02/15/18 Ondansetron (Zofran Odt) 8 Mg Tab.rapdis 8 MG PO Q6H PRN for NAUSEA/VOMITING, #10 TAB Prov: JONNATHAN MALLOY APRN 02/15/18 Copy Copies To 1: SAIDA HAMEED MD, PETER J APRN Feb 15, 2018 10:58
[2018-02-15] MEDS ORDERED: fentaNYL INJECTION 100 MCG/2 ML AMP IVP ONE (11:00)
[2018-02-15] MEDS ORDERED: NS IV 1000 ML 1,000 ML IV SCH (11:00)
[2018-02-15 11:11] LABS: BASOPHILS % (AUTO) 0 % (0-10); EOSINOPHILS # (AUTO) 0.2 10^3/uL (0.0-0.3); EOSINOPHILS % (AUTO) 3 % (0-10); HEMATOCRIT 39 % (35-52); HEMOGLOBIN 12.4 G/DL (11.5-16.0); LYMPHOCYTES # (AUTO) 1.2 X 10^3 (1.0-4.0); LYMPHOCYTES % (AUTO) 17 % (12-44); MEAN CORPUSCULAR HEMOGLOBIN 30 PG (25-34); MEAN CORPUSCULAR HGB CONC 32 G/DL (32-36); MEAN CORPUSCULAR VOLUME 93 FL (80-99); MEAN PLATELET VOLUME 9.4 FL (7.4-10.4); MONOCYTES # (AUTO) 0.5 X 10^3 (0.0-1.0); MONOCYTES % (AUTO) 7 % (0-12); NEUTROPHILS % (AUTO) 73 % (42-75); PLATELET COUNT 170 10^3/uL (130-400); RED BLOOD COUNT 4.16 10^6/uL (4.35-5.85); RED CELL DISTRIBUTION WIDTH 13.6 % (10.0-14.5); WHITE BLOOD COUNT 6.9 10^3/uL (4.3-11.0)
[2018-02-15 11:18] LABS: INR 1.1 (0.8-1.4); PROTHROMBIN TIME PATIENT 13.7 SEC (12.2-14.7)
--- NOTE | 2018-02-15 11:20 | Diagnostic Imaging Report ---
INDICATION: Upper abdominal pain. COMPARISON: 01/12/2017. FINDINGS: Visualized lungs are clear. Please note, the posterior lower lobes are poorly evaluated by portable radiography. No pleural effusion or pneumothorax. Borderline cardiomegaly is unchanged. Tortuous aorta is stable. Stable degenerative changes of the thoracic spine. IMPRESSION: No acute cardiopulmonary process by portable radiography. Dictated by: Dictated on workstation # [id number]
[2018-02-15 11:28] LABS: ALANINE AMINOTRANSFERASE 16 U/L (0-55); ALBUMIN 3.9 GM/DL (3.2-4.5); ALKALINE PHOSPHATASE 86 U/L (40-136); BILIRUBIN,TOTAL 0.5 MG/DL (0.1-1.0); BUN/CREATININE RATIO 16; CARBON DIOXIDE 28 MMOL/L (21-32); CHLORIDE 104 MMOL/L (98-107); CREATININE SERUM 0.77 MG/DL (0.60-1.30); GFR ESTIMATED > 60; GLUCOSE 113 MG/DL (70-105); MAGNESIUM 2.2 MG/DL (1.8-2.4); POTASSIUM 3.6 MMOL/L (3.6-5.0); SODIUM 141 MMOL/L (135-145); TOTAL PROTEIN 6.5 GM/DL (6.4-8.2)
[2018-02-15 11:35] LABS: MYOGLOBIN SERUM 42.9 NG/ML (10.0-92.0)
[2018-02-15] MEDS ORDERED: NS 250 ML (IVPB) BAG IV ONE (12:00)
[2018-02-15] MEDS ORDERED: IOHEXOL 350 MG/ML 100 ML (OMNIPAQUE 350) VIAL IV ONE (12:00)
--- NOTE | 2018-02-15 12:44 | Diagnostic Imaging Report ---
PROCEDURE: CT abdomen and pelvis with contrast. TECHNIQUE: Multiple contiguous axial images were obtained through the abdomen and pelvis after administration of intravenous contrast. INDICATION: Severe abdominal pain. Comparison: 08/25/2016 Findings: Included portions of the lung bases are clear. CT abdomen: There is mild abnormal diffuse colonic wall thickening, most conspicuous involving the distal transverse colon, length of the descending colon, and portions of the sigmoid colon. There is also mild stranding of the pericolonic fat and combing of the colonic vessels. There is no pneumatosis, pneumoperitoneum, nor portal venous gas. There are a few scattered colonic diverticuli, but there is no focal inflammatory change epicenter about a single diverticulum. Normal appendix cannot be adequately identified, but there is no pericecal inflammation. Small bowel loops are nondistended. Small cysts of the right kidney is noted. This measures 11 mm on today's exam, which is minimally increased in size compared to 6 mm on exam dated 07/10/2008 (Image 35, series 2). Left kidney has a normal CT appearance. The adrenal glands, spleen, and pancreas have a normal appearance. Liver has a diffuse hypodense appearance on this postcontrast exam. There is a benign cyst within posterior margins of segment 6 of the liver. No abnormal mesenteric or retroperitoneal adenopathy is seen. There is no loculated air-fluid collection. There is mild scattered calcified aortic and arterial atherosclerosis. Bony structures show no acute abnormalities. CT pelvis: Urinary bladder is grossly unremarkable. There is no loculated fluid collection, free fluid, nor free air within the pelvis. No abnormal adenopathy is identified. Bony structures show no acute abnormalities. Impression: 1. Diffuse appearance to the left colon as described above. Findings raise suspicion for nonspecific infectious or inflammatory colitis. 2. No pneumatosis, pneumoperitoneum, nor portal venous gas. 3. Probable hepatic steatosis. Dictated by: Dictated on workstation # [id number]
[2018-02-15] MEDS ORDERED: SULF1TAB35 PO (12:52)
[2018-02-15] MEDS ORDERED: METR500T21 PO (12:52)
[2018-02-15] MEDS ORDERED: HYDR-4226 PO (12:52)
[2018-02-15 13:00] VITALS: BP 116/79
== END 2018-02-15 13:00 | disposition home or self-care (01) ==
LOC: EDUNIT# 09:42 → ER 09:44
DX: K52.9 Noninfective gastroenteritis and colitis, unspecified (principal); J44.9 Chronic obstructive pulmonary disease, unspecified; I48.91 Unspecified atrial fibrillation; I25.10 Atherosclerotic heart disease of native coronary artery without angina pectoris; I25.2 Old myocardial infarction; E78.00 Pure hypercholesterolemia, unspecified; I10 Essential (primary) hypertension; G43.909 Migraine, unspecified, not intractable, without status migrainosus; E03.9 Hypothyroidism, unspecified; F41.9 Anxiety disorder, unspecified; F31.9 Bipolar disorder, unspecified; Z90.49 Acquired absence of other specified parts of digestive tract; Z79.82 Long term (current) use of aspirin; Z90.710 Acquired absence of both cervix and uterus; Z98.51 Tubal ligation status
CPT/HCPCS: 36415; 71045; 74177; 80053; 83735; 83874; 84484; 85025; 85610; 85730

== ENCOUNTER → 2018-02-17 | Outpatient (CLI) | payer MEDICARE, MEDICAID ==
[~2018-02-17] MED LIST changes: +CEFD300C3 PO; +HYDR-3812 PO; +HYDR-4226 PO; +METO-370 PO; +METR500T21 PO; +ONDA8TAB13 PO; +ONDA8TAB9 PO; +SULF-222 PO; +SULF1TAB35 PO
[2018-02-17 12:07] LABS: BASOPHILS % (AUTO) 0 % (0-10); EOSINOPHILS # (AUTO) 0.2 10^3/uL (0.0-0.3); EOSINOPHILS % (AUTO) 3 % (0-10); HEMATOCRIT 39 % (35-52); HEMOGLOBIN 12.7 G/DL (11.5-16.0); LYMPHOCYTES # (AUTO) 1.2 X 10^3 (1.0-4.0); LYMPHOCYTES % (AUTO) 20 % (12-44); MEAN CORPUSCULAR HEMOGLOBIN 30 PG (25-34); MEAN CORPUSCULAR HGB CONC 32 G/DL (32-36); MEAN CORPUSCULAR VOLUME 92 FL (80-99); MEAN PLATELET VOLUME 9.6 FL (7.4-10.4); MONOCYTES # (AUTO) 0.5 X 10^3 (0.0-1.0); MONOCYTES % (AUTO) 9 % (0-12); NEUTROPHILS # (AUTO) 4.1 X 10^3 (1.8-7.8); NEUTROPHILS % (AUTO) 68 % (42-75); PLATELET COUNT 176 10^3/uL (130-400); RED BLOOD COUNT 4.27 10^6/uL (4.35-5.85); RED CELL DISTRIBUTION WIDTH 13.9 % (10.0-14.5); WHITE BLOOD COUNT 6.1 10^3/uL (4.3-11.0)
--- NOTE | 2018-02-17 12:22 | Diagnostic Imaging Report ---
PROCEDURE: US left lower extremity venous. TECHNIQUE: Multiple real-time grayscale images were obtained over the left lower extremity in various projections. Additional duplex Doppler and color Doppler images were also obtained. INDICATION: Left lower extremity swelling and redness. There is no evidence of a left lower extremity DVT. Left lower extremity deep venous system shows normal compressibility with no normal response to augmentation and Valsalva. No fluid collection or mass is seen. IMPRESSION: No evidence of left lower extremity DVT. Dictated by: Dictated on workstation # [id number]
== END ==
LOC: RAD 10:34
PROVIDERS: ATTEND Nurse Practitioner Family
DX: M79.89 Other specified soft tissue disorders (principal); L53.9 Erythematous condition, unspecified
CPT/HCPCS: 36415; 85025

== ENCOUNTER 2018-02-20 13:09 | Observation (INO) | payer MEDICARE, MEDICAID ==
[~2018-02-20] VITALS: Ht 177.8 cm; Wt 127.9 kg
[~2018-02-20 13:09] MED LIST changes: -CEFD300C3 PO; -HYDR-3812 PO; -METO-370 PO; +METR-197 PO; -METR500T21 PO; -ONDA8TAB13 PO; -SULF-222 PO
[2018-02-20] MEDS ORDERED: ASPIRIN 81 MG CHEW (CHILDREN'S ASA) PO ONE (13:15)
--- OUTSIDE RECORDS SUMMARY | 2018-02-20 13:22 | XMS REPORT | Continuity of Care Document ---
Author Author [facility] Organization [facility] Address Unknown Phone Unavailable Allergies Active Description Code Type Severity Reaction Onset Reported/Identified Relationship to Patient Clinical Status Yes NKDA NKDA Mild N/ A 10/13/2008 Yes No Known Drug Allergies [id number] Drug Allergy Unknown N/A 04/02/2015 Medications There [...] INFARCT 09/29/2010 Ot 414.[address] [place] CORON 09/29/2010 Ot 427.31 ATRIAL FIBRILLATION 09/29/2010 [...] 786.05 SHORTNESS OF BREATH 05/21/2013 JONNATHAN MALLOY NUCLEAR PLANT INSTRUMENT TECHNICIAN Ot V58.61 ANTICOAGULANTS,LT,CURRENT USE 05/21/2013 JONNATHAN MALLOY [...] DO Ot 729.5 PAIN IN LIMB 10/14/2013 JLUIANA HERNANDEZ DO Ot 780.57 UNSPECIFIED SLEEP APNEA [...] PULMONARY DISEASE W 08/14/2015 BAIMA, ESTELA L HIDE OR SKIN BUFFER Ot G47.30 SLEEP APNEA, UNSPECIFIED 08/14/2015 BAIMA, ESTELA L HIDE OR SKIN BUFFER Ot I48.91 UNSPECIFIED ATRIAL FIBRILLATION 08/14/2015 BAIMA, ESTELA L HIDE OR SKIN BUFFER Ot J44.9 CHRONIC OBSTRUCTIVE PULMONARY DISEASE, U 08/14/2015 BAIMA, ESTELA L HIDE OR SKIN BUFFER Ot R06.00 DYSPNEA, UNSPECIFIED 08/14/2015 BAIMA, ESTELA L HIDE OR SKIN BUFFER Ot R07.9 CHEST PAIN, UNSPECIFIED 08/14/2015 BAIMA, ESTELA L HIDE OR SKIN BUFFER Ot Z79.01 SYSTEMS COORDINATOR (CURRENT) USE OF ANTICOAGULANT 09/03/2015 BAIMA, ESTELA L HIDE OR SKIN BUFFER Ot G47.30 SLEEP APNEA, UNSPECIFIED 09/03/2015 BAIMA, ESTELA L HIDE OR SKIN BUFFER Ot I48.91 UNSPECIFIED ATRIAL FIBRILLATION 09/03/2015 BAIMA, ESTELA L HIDE OR SKIN BUFFER Ot J44.9 CHRONIC OBSTRUCTIVE PULMONARY DISEASE, U 09/03/2015 BAIMA, ESTELA L HIDE OR SKIN BUFFER Ot R06.00 DYSPNEA, UNSPECIFIED 09/03/2015 BAIMA, ESTELA L HIDE OR SKIN BUFFER Ot R07.9 CHEST PAIN, UNSPECIFIED 09/03/2015 BAIMA, ESTELA L HIDE OR SKIN BUFFER Ot Z79.01 SYSTEMS COORDINATOR (CURRENT) USE OF ANTICOAGULANT 09/20/2015 MELLYMA ESTELA L HIDE OR SKIN BUFFER Ot G47.30 SLEEP APNEA, UNSPECIFIED 09/20/2015 BAIMA ESTELA L HIDE OR SKIN BUFFER Ot I48.91 UNSPECIFIED ATRIAL FIBRILLATION 09/20/2015 MELLYMALUIGIESTELA L HIDE OR SKIN BUFFER Ot J44.9 CHRONIC OBSTRUCTIVE PULMONARY DISEASE, U 09/20/2015 MELLYLUIGI MARTINEZHER L HIDE OR SKIN BUFFER Ot R06.00 DYSPNEA, UNSPECIFIED 09/20/2015 BAIMA, ESTELA L HIDE OR SKIN BUFFER Ot R07.9 CHEST PAIN, UNSPECIFIED 09/20/2015 BAIMALUIGIESTELA L HIDE OR SKIN BUFFER Ot Z79.01 RESIDENTIAL (CURRENT) USE OF ANTICOAGULANT [...] ACUTE OR CH 02/25/2016 RITA ESTELA L HIDE OR SKIN BUFFER Ot G47.30 SLEEP APNEA, UNSPECIFIED 02/25/2016 MELLYMA ESTELA L HIDE OR SKIN BUFFER Ot I48.91 UNSPECIFIED ATRIAL FIBRILLATION 02/25/2016 MELLYJUAN ESTELA L HIDE OR SKIN BUFFER Ot J44.9 CHRONIC OBSTRUCTIVE PULMONARY DISEASE, U 02/25/2016 MELLYMA ESTELA L HIDE OR SKIN BUFFER Ot R06.00 DYSPNEA, UNSPECIFIED 02/25/2016 MELLYMA ESTELA L HIDE OR SKIN BUFFER Ot R07.9 CHEST PAIN, UNSPECIFIED 02/25/2016 ESTELA SALINAS HIDE OR SKIN BUFFER Ot Z79.01 SYSTEMS COORDINATOR (CURRENT) USE OF ANTICOAGULANT 02/26/2016 ZARI LU, [...] SPECIFIED ACUTE OR CH 03/03/2016 ESTELA SALINAS HIDE OR SKIN BUFFER Ot G47.30 SLEEP APNEA, UNSPECIFIED 03/03/2016 ESTELA SALINAS HIDE OR SKIN BUFFER Ot I48.91 UNSPECIFIED ATRIAL FIBRILLATION 03/03/2016 ESTELA SALINAS HIDE OR SKIN BUFFER Ot J44.9 CHRONIC OBSTRUCTIVE PULMONARY DISEASE, U 03/03/2016 ESTELA SALINAS HIDE OR SKIN BUFFER Ot R06.00 DYSPNEA, UNSPECIFIED 03/03/2016 ESTELA SALINAS HIDE OR SKIN BUFFER Ot R07.9 CHEST PAIN, UNSPECIFIED 03/03/2016 ESTELA SALINAS HIDE OR SKIN BUFFER Ot Z79.01 RESIDENTIAL (CURRENT) USE OF ANTICOAGULANT [...] 05/14/2016 NICK DO CARISSA K Ot Z79.82 SYSTEMS COORDINATOR (CURRENT) USE OF ASPIRIN 05/14/2016 NICK DO CARISSA K Ot Z79.891 SYSTEMS COORDINATOR (CURRENT) USE OF OPIATE ANALGE 05/14/2016 NICK [...] SPECIFIED ACUTE OR CH 08/25/2016 MELLYMAESTELA L HIDE OR SKIN BUFFER Ot G47.30 SLEEP APNEA, UNSPECIFIED 08/25/2016 BAIMA ESTELA L HIDE OR SKIN BUFFER Ot I48.91 UNSPECIFIED ATRIAL FIBRILLATION 08/25/2016 ESTELA SALINAS L HIDE OR SKIN BUFFER Ot J44.9 CHRONIC OBSTRUCTIVE PULMONARY DISEASE, U 08/25/2016 ESTELA SALINAS L HIDE OR SKIN BUFFER Ot R06.00 DYSPNEA, UNSPECIFIED 08/25/2016 MELLYMAESTELA L HIDE OR SKIN BUFFER Ot R07.9 CHEST PAIN, UNSPECIFIED 08/25/2016 ESTELA SALINAS L HIDE OR SKIN BUFFER Ot Z79.01 RESIDENTIAL (CURRENT) USE OF ANTICOAGULANT 08/25/2016 SAIDA HAMEED MD Ot R06.2 WHEEZING 08/25/2016 Ot V58.61 ANTICOAGULANTS,LT,CURRENT USE 08/25/2016 Ot V58.83 ENCOUNTER FOR THERAPEUTIC DRUG MONITORIN 08/25/2016 JAMES PHELAN MD Ot I10 ESSENTIAL (PRIMARY) HYPERTENSION 08/25/2016 JAMES PHELAN MD Ot I25.[address] A[address] OF 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 08/25/2016 JAMES PHELAN MD Ot J44.9 [...] MD Ot I25.10 ATHSCL HEART DISEASE OF 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 11/30/2016 HUGH CORDOVA MD Ot I25.2 [...] MD Ot I25.10 ATHSCL HEART DISEASE OF 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 11/30/2016 HUGH CORDOVA MD Ot I25.2 [...] ANTICOAGULANT 11/30/2016 HUGH CORDOVA MD, Ot Z79.82 SYSTEMS COORDINATOR (CURRENT) USE OF ASPIRIN 11/30/2016 HUGH CORDOVA [...] APRN Ot I25.10 ATHSCL HEART DISEASE OF 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 01/14/2017 JONNATHAN MALLOY APRN Ot I25.2 [...] APRN Ot I25.10 ATHSCL HEART DISEASE OF 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 06/09/2017 MOLLY ARANA Ot I25.2 OLD MYOCARDIAL INFARCTION 06/09/2017 MOLLY ARANA Ot I48.91 UNSPECIFIED ATRIAL FIBRILLATION 06/09/2017 MOLLY ARANA Ot I73.9 PERIPHERAL VASCULAR DISEASE, UNSPECIFIED 06/09/2017 MOLLY ARANA Ot J34.89 OTHER SPECIFIED DISORDERS OF NOSE AND NA 06/09/2017 MOLLY ARANA Ot J45.909 UNSPECIFIED ASTHMA, UNCOMPLICATED 06/09/2017 MOLLY ARANA Ot R04.0 EPISTAXIS 06/09/2017 MOLLY ARANA Ot Z79.01 SYSTEMS COORDINATOR (CURRENT) USE OF ANTICOAGULANT 06/09/2017 MOLLY ARANA [...] Ot G47.30 SLEEP APNEA, UNSPECIFIED 06/10/2017 HUGH CORDOVA MD Ot I10 ESSENTIAL (PRIMARY) HYPERTENSION 06/10/2017 HUGH CORDOVA MD Ot I25.10 ATHSCL HEART DISEASE OF 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 06/10/2017 HUGH CORDOVA MD Ot I25.2 [...] ARANA Ot I25.10 ATHSCL HEART DISEASE OF 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 06/11/2017 MOLLY ARANA Ot I25.2 OLD MYOCARDIAL INFARCTION 06/11/2017 MOLLY ARANA Ot I48.91 UNSPECIFIED ATRIAL FIBRILLATION 06/11/2017 MOLLY ARANA Ot I73.9 PERIPHERAL VASCULAR DISEASE, UNSPECIFIED 06/11/2017 MOLLY ARANA Ot J34.89 OTHER SPECIFIED DISORDERS OF NOSE AND NA 06/11/2017 MOLLY ARANA Ot J45.909 UNSPECIFIED ASTHMA, UNCOMPLICATED 06/11/2017 MOLLY ARANA Ot R04.0 EPISTAXIS 06/11/2017 MOLLY ARANA Ot Z79.01 SYSTEMS COORDINATOR (CURRENT) USE OF ANTICOAGULANT 06/11/2017 MOLLY ARANA Ot Z79.82 SYSTEMS COORDINATOR (CURRENT) USE OF ASPIRIN 06/11/2017 MOLLY ARANA [...] K Ot I25.10 ATHSCL HEART DISEASE OF 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 07/18/2017 CARISSA ROMERO DO Ot I25.2 [...] KNEE 07/18/2017 CARISSA ROMERO DO Ot Z79.01 SYSTEMS COORDINATOR (CURRENT) USE OF ANTICOAGULANT 07/18/2017 CARISSA ROMERO DO Ot Z79.82 RESIDENTIAL (CURRENT) USE OF ASPIRIN 07/18/2017 CARISSA ROMERO DO Ot Z87.01 PERSONAL HISTORY OF PNEUMONIA (RECURRENT 07/18/2017 CARISSA ROMERO DO Ot Z87.09 PERSONAL HISTORY OF OTHER DISEASES OF TH 07/18/2017 CARISSA ROMERO DO Ot Z90.49 ACQUIRED ABSENCE OF OTHER SPECIFIED PART 07/18/2017 CARISSA ROMERO DO Ot Z90.710 ACQUIRED ABSENCE OF BOTH CERVIX AND UTER 07/18/2017 CARISSA ROMERO DO Ot Z98.51 TUBAL LIGATION STATUS 02/15/2018 ZHANE LU, JAMES Rodríguez Ot 286.9 COAGULAT DEFECT NEC/NOS 02/15/2018 ZARI LU, SAIDA R Ot 729.5 PAIN IN LIMB 02/15/2018 SAIDA HAMEED MD R Ot 729.81 SWELLING OF LIMB 02/15/2018 TRACY JOSEPH DO Ot 278.01 MORBID OBESITY 02/15/2018 TRACY JOSEPH DO Ot 311 DEPRESSIVE DISORDER NEC 02/15/2018 TRACY JOSEPH DO Ot 427.31 ATRIAL FIBRILLATION 02/15/2018 TRACY JOSEPH DO Ot 496 CHR AIRWAY OBSTRUCT NEC 02/15/2018 ZARI LU, SAIDA R Ot J40 BRONCHITIS, NOT SPECIFIED ACUTE OR CH 02/15/2018 ESTELA SALINAS HIDE OR SKIN BUFFER Ot G47.30 SLEEP APNEA, UNSPECIFIED 02/15/2018 ESTELA SALINAS L HIDE OR SKIN BUFFER Ot I48.91 UNSPECIFIED ATRIAL FIBRILLATION 02/15/2018 ESTELA SALINAS HIDE OR SKIN BUFFER Ot J44.9 CHRONIC OBSTRUCTIVE PULMONARY DISEASE, U 02/15/2018 ESTELA SALINAS L HIDE OR SKIN BUFFER Ot R06.00 DYSPNEA, UNSPECIFIED 02/15/2018 ESTELA SALINAS L HIDE OR SKIN BUFFER Ot R07.9 CHEST PAIN, UNSPECIFIED 02/15/2018 ESTELA SALINAS L HIDE OR SKIN BUFFER Ot Z79.01 RESIDENTIAL (CURRENT) USE OF ANTICOAGULANT 02/15/2018 ZARI LU, SAIDA R Ot R06.2 WHEEZING 02/15/2018 SCARLET GARRETT APRN Ot M51.36 OTHER INTERVERTEBRAL DISC DEGENERATION, 02/15/2018 SCARLET GARRETT APRN Ot M95.9 ACQUIRED DEFORMITY [...] culture - 08/25/16 16:00 Bacterial urine culture [id number] NRG COLONY COUNT 10,000/ML - 100,000/ML NRG [...] 01/12/17 15:45 BNP level 189.9 pg/mL <100.0 Complete blood count (CBC) with automated white blood cell (WBC) differential - 02/15/18 11:00 Blood leukocytes automated count (number/volume) 6.9 10*3/uL 4.3-11.0 Blood erythrocytes automated count (number/volume) 4.16 10*6/uL 4.35-5.85 Venous blood hemoglobin measurement (mass/volume) 12.4 g/dL 11.5-16.0 Blood hematocrit (volume fraction) 39 % 35-52 Automated erythrocyte mean corpuscular volume 93 [foz_us] 80-99 Automated erythrocyte mean corpuscular hemoglobin (mass per erythrocyte) 30 pg 25-34 Automated erythrocyte mean corpuscular hemoglobin concentration measurement ( mass/volume) 32 g/dL 32-36 Automated erythrocyte distribution width ratio 13.6 % 10.0-14.5 Automated blood platelet count (count/volume) 170 10*3/uL 130-400 Automated blood platelet mean volume measurement 9.4 [foz_us] 7.4-10.4 Automated blood neutrophils/100 leukocytes 73 [...] blood basophil count (count/volume) 0.0 10*3/uL 0.0-0.1 PT panel in platelet poor plasma by coagulation assay - 02/15/18 11:00 Prothrombin time (PT) in platelet poor plasma by coagulation assay 13.7 s 12.2-14.7 INR in platelet poor plasma or blood by coagulation assay 1.1 0.8-1.4 Activated partial thromboplastin time (aPTT) in platelet poor plasma bycoagulation assay - 02/15/18 11:00 Activated partial thromboplastin time (aPTT) in platelet poor plasma bycoagulation assay 30 s 24-35 Comprehensive metabolic panel - 02/15/18 11:00 Serum or plasma sodium measurement (moles/volume) 141 mmol/L 135-145 Serum or plasma potassium measurement (moles/volume) 3.6 mmol/L 3.6-5.0 Serum or plasma chloride measurement (moles/volume) 104 mmol/L 98-107 Carbon dioxide 28 mmol/L 21-32 Serum or plasma anion gap determination (moles/volume) 9 mmol/L 5-14 Serum or plasma urea nitrogen measurement (mass/volume) 12 mg/dL 7-18 Serum or plasma creatinine measurement (mass/volume) 0.77 mg/dL 0.60-1.30 Serum or plasma urea nitrogen/creatinine mass ratio 16 NRG Serum or plasma creatinine measurement with calculation of estimated glomerular filtration rate > NRG Serum or plasma glucose measurement (mass/volume) 113 mg/dL 70-105 Serum or plasma calcium measurement (mass/volume) 9.0 mg/dL 8.5-10.1 Serum or plasma total bilirubin measurement (mass/volume) 0.5 mg/dL 0.1-1.0 Serum or plasma alkaline phosphatase measurement (enzymatic activity/volume) 86 U/L 40-136 Serum or plasma aspartate aminotransferase measurement (enzymatic activity/ volume) 19 U/L 5-34 Serum or plasma alanine aminotransferase measurement (enzymatic activity/volume ) 16 U/L 0-55 Serum or plasma protein measurement (mass/volume) 6.5 g/dL 6.4-8.2 Serum or plasma albumin measurement (mass/volume) 3.9 g/dL 3.2-4.5 CALCIUM CORRECTED 9.1 mg/dL 8.5-10.1 Magnesium - 02/15/18 11:00 Magnesium 2.2 mg/dL 1.8-2.4 Serum or plasma troponin i.cardiac measurement (mass/volume) - 02/15/18 11:00 Serum or plasma troponin i.cardiac measurement (mass/volume) < ng/ mL <0.30 Myoglobin, serum - 02/15/18 11:00 Myoglobin, serum 42.9 ng/mL 10.0-92.0 Complete blood count (CBC) with automated white blood cell (WBC) differential - 02/17/18 12:05 Blood leukocytes automated count (number/volume) 6.1 10*3/uL 4.3-11.0 Blood erythrocytes automated count (number/volume) 4.27 10*6/uL 4.35-5.85 Venous blood hemoglobin measurement (mass/volume) 12.7 g/dL 11.5-16.0 Blood hematocrit (volume fraction) 39 % 35-52 Automated erythrocyte mean corpuscular volume 92 [foz_us] 80-99 Automated erythrocyte mean corpuscular hemoglobin (mass per erythrocyte) 30 pg 25-34 Automated erythrocyte mean corpuscular hemoglobin concentration measurement ( mass/volume) 32 g/dL 32-36 Automated erythrocyte distribution width ratio 13.9 % 10.0-14.5 Automated blood platelet count (count/volume) 176 10*3/uL 130-400 Automated blood platelet mean volume measurement 9.6 [foz_us] 7.4-10.4 Automated blood neutrophils/100 leukocytes 68 % 42-75 Automated blood lymphocytes/100 leukocytes 20 % 12-44 Blood monocytes/100 leukocytes 9 % 0-12 Automated blood eosinophils/100 leukocytes 3 % 0-10 Automated blood basophils/100 leukocytes 0 % 0-10 Blood neutrophils automated count (number/volume) 4.1 10*3 1.8-7.8 Blood lymphocytes automated count (number/volume) 1.2 10*3 1.0-4.0 Blood monocytes automated count (number/volume) 0.5 10*3 0.0-1.0 Automated eosinophil count 0.2 10*3/uL 0.0-0.3 Automated blood basophil count (count/volume) 0.0 10*3/uL 0.0-0.1 Encounters ACCT No. Visit Date/Time Discharge Status Pt. Type Provider Facility Loc./Unit Complaint [id number] 02/15/2018 09:44:00 02/15/2018 13:00:00 DIS Emergency JONNATHAN MALLOY APRN [facility] ER STOMACH PAIN; CHEST PAIN [id number] 06/09/2017 15:00:00 06/09/2017 16:58:00 DIS Emergency MOLLY ARANA [facility] ER NEEDS ANTIBIOTIC HERE LAST NIGHT FOR NOSE BLEED [id number] 06/08/2017 21:55:00 06/08/2017 23:20:00 DIS Emergency HUGH CORDOVA MD [facility] ER NOSE BLEED FOR 45 MINUTES - BLOOD THINNERS [id number] 04/29/2017 15:16:00 04/29/2017 23:59:59 CLS Outpatient SCARLET GARRETT APRN [facility] RAD M554.42 [id number] 03/28/2017 15:34:00 03/28/2017 18:53:00 DIS Emergency CARISSA ROMERO DO [facility] ER L LEG SWELLING/PAIN [id number] 01/12/2017 15:46:00 01/12/2017 17:08:00 DIS Emergency JONNATHAN MALLOY APRN [facility] ER TROUBLE BREATHING; HEAVINESS IN CHEST [id number] 11/29/2016 23:07:00 11/30/2016 02:36:00 DIS Emergency HUGH CORDOVA MD [facility] ER D/N FEVER WEAK [id number] 08/25/2016 14:30:00 08/25/2016 18:32:00 DIS Emergency ZHANE MD, JAMES D [facility] ER DIZZINESS/NAUSEA/ SHAKEY LEFT CALF PAIN [id number] 05/12/2016 23:38:00 05/13/2016 01:24:00 DIS Emergency CARISSA ROMERO DO [facility] ER N/V/D [id number] 02/25/2016 14:56:00 02/25/2016 23:59:59 CLS Outpatient SAIDA HAMEED MD [facility] RAD WHEEZING [id number] 08/13/2015 08:10:00 08/13/2015 23:59:59 CLS Outpatient ESTELA SALINAS [facility] CARD CHEST PAIN, PALPITATIONS,AFIB [id number] 06/16/2015 12:33:00 06/16/2015 14:55:00 DIS Emergency SANDRITA ALVARADO MD [facility] ER SOB/COPD [id number] 04/05/2015 09:50:00 04/05/2015 12:07:00 DIS Emergency SANDRITA ALVARADO MD [facility] ER SOA [id number] 04/02/2015 12:02:00 04/04/2015 09:45:00 DIS Inpatient SAIDA HAMEED MD [facility] 4TH COPD,EXACERBATION [id number] 02/21/2015 15:46:00 02/21/2015 23:59:59 CLS Outpatient SAIDA HAMEED MD [facility] RAD BRONCHITIS [id number] 11/20/2014 23:05:00 11/22/2014 09:45:00 DIS Inpatient SAIDA HAMEED MD [facility] 4TH BLEACH FUMES EXPOSURE, COPD EXACERBATION [id number] 10/25/2014 14:21:00 10/25/2014 19:30:00 DIS Emergency JAMES PHELAN MD [facility] ER LEFT GROIN PAIN [id number] 10/13/2013 20:46:00 10/14/2013 00:44:00 DIS Emergency JULIANA HERNANDEZ DO [facility] ER L LEG PAIN; CHEST PAIN [id number] 09/25/2013 12:37:00 09/25/2013 23:59:59 CLS Outpatient JAKE TRACY Brenda [facility] RT COPD,AFIB [id number] 08/25/2013 00:35:00 08/25/2013 12:05:00 DIS Inpatient SAIDA HAMEED MD [facility] CSD CHEST PAIN, SUBTHERAPEUTIC INR [id number] 07/04/2013 11:07:00 07/04/2013 23:59:59 CLS Outpatient SAIDA HAMEED MD [facility] RAD SWELLING,PAIN [id number] 06/28/2013 16:29:00 06/28/2013 17:24:00 DIS Emergency CARISSA ROMERO DO [facility] ER VOMITING,COUGH, POST EXPOSURE TO CLOROX [id number] 05/21/2013 20:58:00 05/25/2013 10:45:00 DIS Inpatient SAIDA HAMEED MD [facility] 4TH COPD EXACERBATION; WEAKNESS [id number] 05/21/2013 13:28:00 05/21/2013 15:42:00 DIS Emergency JONNATHAN MALLOY APRN [facility] ER SOA CONGESTION R ARM PAIN [id number] 03/24/2013 17:10:00 03/25/2013 09:50:00 DIS Inpatient VIELKA MORENO MD [facility] ICU CHEST PAIN [id number] 03/01/2013 01:10:00 03/01/2013 14:29:00 DIS Inpatient SAIDA HAMEED MD [facility] 4TH ACUTE EXACERBATION OF COPD [id number] 02/13/2013 12:59:00 02/13/2013 14:18:00 DIS Emergency JONNATHAN MALLOY APRN [facility] ER LEFT LEG/GROIN PAIN [id number] 12/27/2012 13:08:00 12/27/2012 15:00:00 DIS Emergency JONNATHAN MALLOY APRN [facility] ER RIGHT ARM NUMBNESS/LEFT THIGH KNOT [id number] 12/02/2012 08:45:00 12/02/2012 23:59:59 CLS Outpatient JAMES PHELAN MD [facility] LAB SUPRATHERAPEUTIC INR [id number] 11/30/2012 15:06:00 11/30/2012 18:11:00 DIS Emergency JAMES PHELAN MD [facility] ER SOA,HEADACHE, DIZZINESS [id number] 10/30/2012 11:45:00 10/30/2012 23:59:59 CLS Outpatient [id number] 08/20/2012 10:02:00 08/20/2012 23:59:59 CLS Outpatient [id number] 02/17/2018 12:09:00 Document Registration [id number] 10/25/2014 14:22:00 Document Registration [id number] 10/25/2014 14:22:00 Document Registration [id number] 10/25/2014 14:21:00 Document Registration [id number] 10/25/2014 14:21:00 Document Registration [id number] 10/25/2014 14:21:00 Document Registration [id number] 10/25/2014 14:21:00 Document Registration [id number] 10/25/2014 14:21:00 Document Registration [id number] 10/25/2014 14:21:00 Document Registration [id number] 10/25/2014 14:21:00 Document Registration [id number] 07/01/2014 22:30:00 Document Registration [id number] 06/13/2012 19:15:00 Document Registration [id number] 02/23/2012 01:00:00 Document Registration [id number] 12/03/2011 00:00:00 Document Registration [id number] 11/12/2011 21:51:00 Document Registration [id number] 10/13/2011 08:28:00 Document Registration [id number] 09/03/2011 12:33:00 Document Registration [id number] 08/21/2011 20:45:00 Document Registration [id number] 03/24/2011 20:48:00 Document Registration [id number] 01/24/2011 21:19:00 Document Registration [id number] 09/28/2010 18:20:00 Document Registration [id number] 04/29/2010 21:21:00 Document Registration [id number] 02/10/2010 09:58:00 Document Registration [id number] 01/29/2010 14:43:00 Document Registration [id number] 11/25/2009 11:02:00 Document Registration [id number] 11/13/2009 23:33:00 Document Registration [id number] 10/28/2009 11:54:00 Document Registration [id number] 09/27/2009 10:28:00 Document Registration [id number] 09/20/2009 15:31:00 Document Registration [id number] 07/29/2009 13:39:00 Document Registration [id number] 07/29/2009 12:23:00 Document Registration [id number] 11/20/2014 19:15:56 ACT Document Registration [id number] 12/02/2017 15:15:00 12/02/2017 23:59:[address] [facility] ELIE Chaparro PSYD [facility]
[2018-02-20] MEDS ORDERED: IOHEXOL 350 MG/ML 150 ML (OMNIPAQUE 350) VIAL IV ONE (13:30)
[2018-02-20] MEDS ORDERED: CATHETER FLUSH 10 ML SYR IV PRN (13:30)
[2018-02-20] MEDS ORDERED: NS 250 ML (IVPB) BAG IV ONE (13:30)
[2018-02-20 13:31] LABS: BASOPHILS % (AUTO) 1 % (0-10); EOSINOPHILS # (AUTO) 0.2 10^3/uL (0.0-0.3); EOSINOPHILS % (AUTO) 4 % (0-10); HEMATOCRIT 40 % (35-52); HEMOGLOBIN 12.9 G/DL (11.5-16.0); LYMPHOCYTES # (AUTO) 1.2 X 10^3 (1.0-4.0); LYMPHOCYTES % (AUTO) 23 % (12-44); MEAN CORPUSCULAR HEMOGLOBIN 30 PG (25-34); MEAN CORPUSCULAR HGB CONC 33 G/DL (32-36); MEAN CORPUSCULAR VOLUME 92 FL (80-99); MEAN PLATELET VOLUME 9.9 FL (7.4-10.4); MONOCYTES # (AUTO) 0.5 X 10^3 (0.0-1.0); MONOCYTES % (AUTO) 9 % (0-12); NEUTROPHILS # (AUTO) 3.3 X 10^3 (1.8-7.8); NEUTROPHILS % (AUTO) 63 % (42-75); PLATELET COUNT 181 10^3/uL (130-400); RED BLOOD COUNT 4.29 10^6/uL (4.35-5.85); WHITE BLOOD COUNT 5.2 10^3/uL (4.3-11.0)
[2018-02-20 13:49] LABS: ALANINE AMINOTRANSFERASE 26 U/L (0-55); ALBUMIN 4.2 GM/DL (3.2-4.5); ALKALINE PHOSPHATASE 78 U/L (40-136); BILIRUBIN,TOTAL 0.4 MG/DL (0.1-1.0); BUN/CREATININE RATIO 15; CALCIUM 9.5 MG/DL (8.5-10.1); CARBON DIOXIDE 25 MMOL/L (21-32); CHLORIDE 104 MMOL/L (98-107); CREATININE SERUM 0.98 MG/DL (0.60-1.30); GFR ESTIMATED 57; GLUCOSE 85 MG/DL (70-105); MAGNESIUM 2.2 MG/DL (1.8-2.4); POTASSIUM 4.1 MMOL/L (3.6-5.0); SODIUM 139 MMOL/L (135-145)
[2018-02-20 13:52] LABS: INR 1.1 (0.8-1.4); PROTHROMBIN TIME PATIENT 14.1 SEC (12.2-14.7)
[2018-02-20 13:56] LABS: MYOGLOBIN SERUM 63.7 NG/ML (10.0-92.0)
[2018-02-20] MEDS ORDERED: PROMETHAZINE INJ 25 MG/ML (PHENERGAN) AMP IVP ONE (14:15)
[2018-02-20] MEDS ORDERED: diphenhydrAMINE 50 MG/ML INJ (BENADRYL) IVP ONE (14:15)
[2018-02-20] MEDS ORDERED: RECEIVED CONTRAST (Hold Metformin) IV SCH (15:00)
--- NOTE | 2018-02-20 15:07 | Diagnostic Imaging Report ---
INDICATION: Leg swelling, dizziness. FINDINGS: Heart size stable. Lungs clear. No effusion or pneumothorax. No acute finding. IMPRESSION: Stable chest. Dictated by: Dictated on workstation # [id number]
--- NOTE | 2018-02-20 15:14 | ED Respiratory ---
General Chief Complaint: Respiratory Problems Stated Complaint: NAUSEA,DIZZY,SOB Nursing Triage Note: PT CO OF BEING SOA SUDDENLY, PT STATES HAS L LOWER EXT THAT IS REDDEND, PAINFUL AND WARM TO TOUCH. HAS ULTRA SOUND LAST WEEK AND NO DVT. Source: patient Exam Limitations: no limitations History of Present Illness Date Seen by Provider: Feb 20, 2018 Time Seen by Provider: 13:00 Initial Comments This 63-year-old white female presents with paroxysmal shortness of breath that began suddenly shortly prior to presentation to the emergency department. Patient had a tender left lower leg suggestive of thrombophlebitis for which she had an ultrasound in the last several days fortunately demonstrating no evidence of thrombophlebitis. The patient denied significant chest pain, fever or chills, productive cough, similar episode in the past, change in medications , or associated vomiting or diarrhea. The patient has had moderate diaphoresis and nausea with the shortness of breath. Past medical history includes previous NE, COPD, and atrial fibrillation. The patient is under the care of Dr. Mullen for her heart. Dr. Georges is her primary doctor. Allergies and Home Medications Allergies Coded Allergies: No Known Drug Allergies (Verified , 04/02/15) Home Medications Albuterol Sulfate/Ipratropium 3 Ml Solution, 3 ML IH Q4H PRN for SHORTNESS OF BREATH, (Reported) Amoxicillin/Potassium Clav 1 Each Tablet, 1 EACH PO BID Prescribed by: MOLLY TAN on 06/09/17 165 Apixaban 5 Mg Tablet, 5 MG PO BID, (Reported) Aspirin 81 Mg Tablet.dr, 81 MG PO DAILY, (Reported) Citalopram Hydrobromide 40 Mg Tablet, 40 MG PO DAILY, (Reported) Cyclobenzaprine HCl 10 Mg Tablet, 10 MG PO TID PRN for MUSCLE SPASMS, (Reported) Famotidine 20 Mg Tablet, 20 MG PO BID Prescribed by: JONNATHAN MALLOY on 01/12/17 165 Furosemide 40 Mg Tablet, 40 MG PO DAILY, (Reported) Hydrocodone Bit/Acetaminophen 1 Tab Tab, 1 TAB PO Q4H PRN for pain Prescribed by: MOLLY TAN on 06/09/17 1649 Hydrocodone/Acetaminophen 1 Each Tablet, 1 EACH PO Q6H PRN for PAIN-MODERATE Prescribed by: JONNATHAN MALLOY on 02/15/18 1252 Levothyroxine Sodium 25 Mcg Tablet, 25 MCG PO DAILY, (Reported) Meclizine HCl 25 Mg Tablet, 25 MG PO TID PRN for DIZZINESS, (Reported) Metoprolol Tartrate 50 Mg Tablet, 50 MG PO BID, (Reported) Metronidazole 500 Mg Tablet, 500 MG PO TID Prescribed by: JONNATHAN MALLOY on 02/15/18 1252 Multivit-Min/FA/Lycopene/Lut 1 Each Tablet, 1 TAB PO DAILY, (Reported) Ondansetron 8 Mg Tab.rapdis, 8 MG PO Q6H PRN for NAUSEA/VOMITING Prescribed by: JONNATHAN MALLOY on 02/15/18 1057 Potassium Chloride 20 Meq Tab.er.prt, 20 MEQ PO DAILY, (Reported) Prednisone 20 Mg Tab, 20 MG PO UD Prescribed by: SANDRITA ALVARADO on 06/16/15 1451 Simvastatin 20 Mg Tablet, 20 MG PO HS, (Reported) Sulfamethoxazole/Trimethoprim 1 Each Tablet, 1 EACH PO BID Prescribed by: JONNATHAN MALLOY on 02/15/18 1252 Patient Home Medication List Home Medication List Reviewed: Yes Review of Systems Review of Systems Constitutional: No chills EENTM: No double vision Respiratory: see HPI; No cough, No hemoptysis; short of breath Cardiovascular: No chest pain Gastrointestinal: No abdominal pain, No diarrhea, No nausea, No vomiting Genitourinary: no symptoms reported : No Musculoskeletal: no symptoms reported Skin: no symptoms reported Psychiatric/Neurological: No Symptoms Reported Hematologic/Lymphatic: No Symptoms Reported Immunological/Allergic: no symptoms reported Past Mazoyzu-Rrblra-Bstmkn Hx Past Med/Social Hx: Reviewed Nursing Past Med/Soc Hx Patient Social History Alcohol Use: Denies Use Recreational Drug Use: No Smoking Status: Never a Smoker 2nd Hand Smoke Exposure: No Recent Foreign Travel: No Contact w/Someone Who Travel: No Recent Infectious Disease Expo: No Recent Hopitalizations: No Physical Abuse: No Sexual Abuse: No Immunizations Up To Date Tetanus Booster (TDap): Unknown PED Vaccines UTD: No Date of Pneumonia Vaccine: Apr 26, 2012 Date of Influenza Vaccine: Feb 24, 2015 Seasonal Allergies Seasonal Allergies: No Past Medical History Surgeries: Yes (BILATERAL LEG VEIN STRIPPING ; MULTIPLE CARDIAC CATHS; LEFT WRIST REPAIR) Appendectomy, Cardiac, Ear Surgery, Hysterectomy, Orthopedic, Tubal Ligation, Vascular Surgery Respiratory: Yes Asthma, Pneumonia, Chronic Bronchitis, Sleep Apnea, COPD Currently Using CPAP: No Currently Using BIPAP: No Cardiac: Yes (NE 2004; VARICOSE VEINS) Atrial Fibrillation, Coronary Artery Disease, Heart Attack, High Cholesterol, Hypertension, Irregular Heartbeat, Peripheral Vascular Neurological: Yes Headaches /Migraines 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 Disorders: No Female 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 [employer] History: Hysterectomy, Menopausal Sexually Transmitted Disease: No HIV/AIDS: No Genitourinary: No Gastrointestinal: No Musculoskeletal: Yes ("PLATE IN LEFT WRIST"--NARCOTIC DEPENDENT) Arthritis, Chronic Back Pain, Fractures Endocrine: Yes Hypothyroidsim Loss of Vision: Denies Hearing Impairment: Denies Cancer: No Psychosocial: Yes Anxiety, Bipolar, Depression Integumentary: No Blood Disorders: No Adverse Reaction/Blood Tranf: No Family Medical History Cancer 03 MOTHER, Onset:60 years & older son, Onset:10's - 15 Dementia 03 MOTHER, Onset:60 years & older Family history: Alzheimer's disease 03 MOTHER, Onset:60 years & older Family history: Hypertension 09 BROTHER, Onset:30's - 40 Family history: Thyroid disorder daughter, Onset:20's - 25 History of - respiratory disease 09 BROTHER, Onset:[place] No Pertinent Family Hx Physical Exam Vital Signs - First Documented 02/20/18 13:10 Temp 98.1 Pulse 77 Resp 18 B/P (MAP) 131/88 (102) Pulse Ox 98 Capillary Refill : Less Than 3 Seconds Height: 5'10.00" Weight: 287lbs. 0.0oz. [id number]; 41.6 BMI Method:Stated General Appearance: WD/WN, mild distress Eyes: Bilateral Eye Normal Inspection HEENT: normal ENT inspection Neck: normal inspection Respiratory: chest non-tender, lungs clear, normal breath sounds, no respiratory distress Cardiovascular: regular rate, rhythm, no edema, no murmur Gastrointestinal: normal bowel sounds, non tender, soft Extremities: other (there is a 4 cm diameter area of erythema over the medial aspect of the left ankle superior to the medial malleolus. There is no ascending lymphedema.) Neurologic/Psychiatric: no motor/sensory deficits, alert, normal mood/affect Skin: normal color, warm/dry, other (circular inflammation left ankle) Progress/Results/Core Measures Suspected Sepsis Recent Fever Within 48 Hours: No Infection Criteria Present: None New/Unexplained Altered Menta: No Sepsis Screen: No Definite Risk SIRS Temperature:98.1 Pulse: 77 Respiratory Rate: 18 Laboratory Tests 02/20/18 13:20: White Blood Count 5.2 Blood Pressure 131 /88 Mean: 102 Laboratory Tests 02/20/18 13:20: Creatinine 0.98, INR Comment 1.1, Platelet Count 181, Total Bilirubin 0.4 Results/Orders Lab Results Laboratory Tests Test 02/20/18 13:20 Range/Units White Blood Count 5.2 4.3-11.0 10^3/uL Red Blood Count 4.29 L 4.35-5.85 10^6/uL Hemoglobin 12.9 11.5-16.0 G/DL Hematocrit 40 35-52 % Mean Corpuscular Volume 92 80-99 FL Mean Corpuscular Hemoglobin 30 25-34 PG Mean Corpuscular Hemoglobin Concent 33 32-36 G/DL Red Cell Distribution Width 14.0 10.0-14.5 % Platelet Count 181 130-400 10^3/uL Mean Platelet Volume 9.9 7.4-10.4 FL Neutrophils (%) (Auto) 63 42-75 % Lymphocytes (%) (Auto) 23 12-44 % Monocytes (%) (Auto) 9 0-12 % Eosinophils (%) (Auto) 4 0-10 % Basophils (%) (Auto) 1 0-10 % Neutrophils # (Auto) 3.3 1.8-7.8 X 10^3 Lymphocytes # (Auto) 1.2 1.0-4.0 X 10^3 Monocytes # (Auto) 0.5 0.0-1.0 X 10^3 Eosinophils # (Auto) 0.2 0.0-0.3 10^3/uL Basophils # (Auto) 0.0 0.0-0.1 10^3/uL Prothrombin Time 14.1 12.2-14.7 SEC INR Comment 1.1 0.8-1.4 Activated Partial Thromboplast Time 29 24-35 SEC Sodium Level 139 135-145 MMOL/L Potassium Level 4.1 3.6-5.0 MMOL/L Chloride Level 104 98-107 MMOL/L Carbon Dioxide Level 25 21-32 MMOL/L Anion Gap 10 5-14 MMOL/L Blood Urea Nitrogen 15 7-18 MG/DL Creatinine 0.98 0.60-1.30 MG/DL Estimat Glomerular Filtration Rate 57 BUN/Creatinine Ratio 15 Glucose Level 85 70-105 MG/DL Calcium Level 9.5 8.5-10.1 MG/DL Corrected Calcium 9.3 8.5-10.1 MG/DL Magnesium Level 2.2 1.8-2.4 MG/DL Total Bilirubin 0.4 0.1-1.0 MG/DL Aspartate Amino Transf (AST/SGOT) 33 5-34 U/L Alanine Aminotransferase (ALT/SGPT) 26 0-55 U/L Alkaline Phosphatase 78 40-136 U/L Myoglobin 63.7 10.0-92.0 NG/ML Troponin I < 0.30 <0.30 NG/ML B-Type Natriuretic Peptide 140.0 H <100.0 PG/ML Total Protein 7.0 6.4-8.2 GM/DL Albumin 4.2 3.2-4.5 GM/DL My Orders Orders - L[place]NDON BEACH MD Ct Angio Chest W (02/20/18 13:17) Iohexol Injection (Omnipaque 350 Mg/Ml 1 (02/20/18 13:30) Sodium Chloride Flush (Catheter Flush Sy (02/20/18 13:30) Ns (Ivpb) (Sodium Chloride 0.9%) (02/20/18 13:30) Pharmacy Communication (Pharmacy Communi (02/20/18 13:24) Promethazine Injection (Phenergan Injec (02/20/18 14:15) Diphenhydramine Injection (Benadryl Inje (02/20/18 14:15) Fentanyl Injection (Sublimaze Injection (02/20/18 15:30) Medications Given in ED Current Medications Medications Dose Ordered Sig/Brianna Route Start Time Stop Time Status Last Admin Dose Admin Aspirin 324 mg ONCE ONCE PO 02/20/18 13:15 02/20/18 13:17 DC 02/20/18 13:43 324 MG Iohexol 150 ml ONCE ONCE IV 02/20/18 13:30 02/20/18 13:31 DC 02/20/18 15:02 125 ML Sodium Chloride 10 ml NEEDED PRN IV 02/20/18 13:30 02/20/18 15:02 10 ML Sodium Chloride 250 ml ONCE ONCE IV 02/20/18 13:30 02/20/18 13:31 DC 10/28/18 15:02 80 ML Vital Signs/I&O 02/20/18 13:10 Temp 98.1 Pulse 77 Resp 18 B/P (MAP) 131/88 (102) Pulse Ox 98 Capillary Refill : Less Than 3 Seconds Blood Pressure Mean: 102 Progress Note : Time: 15:50 Progress Note The patient's EKG demonstrated a sinus rhythm with a rate of 60. No acute current of injury was noted. The patient's CTA failed to demonstrate evidence of a pulmonary embolus. Patient's first troponin was normal. Treatment course the patient was placed on supplemental oxygen. She was given 50 g of fentanyl for the pain above the medial left ankle. I discussed patient with Dr. Scott. It was felt reasonable to admit for further evaluation and to rule out an anginal equivelent. I discussed the patient's presentation Dr. Christian who was kind enough to admit the patient. Orders were written and the patient will be transferred to the floor for further evaluation Departure Communication (Admissions) Time/Spoke to Admitting Phy: 15:53 Dr. Christian Time/Spoke to Consulting Phy: 15:53 Dr. Scott. Impression Primary Impression: Shortness of breath Disposition: ADMITTED INPATIENT Condition: Improved Admissions Decision to Admit Reason: Admit from ER (General) Decision to Admit/Date: Feb 20, 2018 Time/Decision to Admit Time: 15:54 Transfer Time Spoke to Accepting Phy: 15:54 Departure-Patient Inst. Referrals: SAIDA GEORGES MD (PCP/Family) Primary Care Physician LYNDON BEACH MD Feb 20, 2018 15:14
--- NOTE | 2018-02-20 15:15 | Diagnostic Imaging Report ---
PROCEDURE: CT angiography of the chest with contrast. TECHNIQUE: Multiple contiguous axial images were obtained through the chest after uneventful bolus administration of intravenous contrast. 2D reconstructed CTA MIP acquisitions were also performed. INDICATION: Left leg swelling and dizziness. FINDINGS: There are no intraluminal pulmonary arterial filling defects. There is no finding of pulmonary embolus. Thoracic aorta is patent and nonaneurysmal. The heart is mildly enlarged but there is no pleural or pericardial effusion. Lungs are free of acute infiltrate. No evidence for edema. No lung mass or suspicious adenopathy. Upper abdomen appears nonacute. IMPRESSION: Negative for PE or other acute abnormality. Dictated by: Dictated on workstation # [id number]
[2018-02-20] MEDS ORDERED: fentaNYL INJECTION 100 MCG/2 ML AMP IVP ONE (15:30)
--- OUTSIDE RECORDS SUMMARY | 2018-02-20 16:41 | XMS REPORT | Continuity of Care Document ---
Author Author [facility] Organization [facility] Address Unknown Phone Unavailable Allergies Active Description Code Type Severity Reaction Onset Reported/Identified Relationship to Patient Clinical Status Yes NKDA NKDA Mild N/ A 10/13/2008 Yes No Known Drug Allergies [id number] Drug Allergy Unknown N/A 04/02/2015 Medications There [...] INFARCT 09/29/2010 Ot 414.01 CORONARY ATHEROSCLEROSIS OF [place] CORON 09/29/2010 Ot 427.31 ATRIAL FIBRILLATION 09/29/2010 [...] OTH MED,LT, CURRENT USE 11/30/2012 ZHANE LU, AJMES Rodríguez Ot [address] [employer] OBSTRUCT NEC [...] MD Ot 719.41 JOINT PAIN-SHLDER 03/25/2013 VIELKA OMRENO MD Ot 729.5 PAIN IN LIMB 03/25/2013 [...] OBSTR CHRONIC BRONCHITIS, W (ACUTE) EXAC 05/21/2013 JONNTAHAN MALLOY APRN Ot 786.05 SHORTNESS OF BREATH 05/21/2013 JONNATHAN MALLOY [employer] Ot V58.61 ANTICOAGULANTS,LT,CURRENT USE 05/21/2013 JONNATHAN MALLOY [...] PULMONARY DISEASE W 08/14/2015 BAIMA, ESTELA L GENERAL LABORER Ot G47.30 SLEEP APNEA, UNSPECIFIED 08/14/2015 BAIMA, ESTELA L GENERAL LABORER Ot I48.91 UNSPECIFIED ATRIAL FIBRILLATION 08/14/2015 BAIMA, ESTELA L GENERAL LABORER Ot J44.9 CHRONIC OBSTRUCTIVE PULMONARY DISEASE, U 08/14/2015 BAIMA, ESTELA L GENERAL LABORER Ot R06.00 DYSPNEA, UNSPECIFIED 08/14/2015 BAIMA, ESTELA L GENERAL LABORER Ot R07.9 CHEST PAIN, UNSPECIFIED 08/14/2015 BAIMA, ESTELA L GENERAL LABORER Ot Z79.01 FLOW SPECIALIST (CURRENT) USE OF ANTICOAGULANT 09/03/2015 BAIMA, ESTELA L GENERAL LABORER Ot G47.30 SLEEP APNEA, UNSPECIFIED 09/03/2015 BAIMA, ESTELA L GENERAL LABORER Ot I48.91 UNSPECIFIED ATRIAL FIBRILLATION 09/03/2015 BAIMA, ESTELA L GENERAL LABORER Ot J44.9 CHRONIC OBSTRUCTIVE PULMONARY DISEASE, U 09/03/2015 BAIMA, ESTELA L GENERAL LABORER Ot R06.00 DYSPNEA, UNSPECIFIED 09/03/2015 BAIMA, ESTELA L GENERAL LABORER Ot R07.9 CHEST PAIN, UNSPECIFIED 09/03/2015 BAIMA, ESTELA L GENERAL LABORER Ot Z79.01 FLOW SPECIALIST (CURRENT) USE OF ANTICOAGULANT 09/20/2015 MELLYMA ESTELA L GENERAL LABORER Ot G47.30 SLEEP APNEA, UNSPECIFIED 09/20/2015 BAIMA ESTELA L GENERAL LABORER Ot I48.91 UNSPECIFIED ATRIAL FIBRILLATION 09/20/2015 MELLYMALUIGIESTELA L GENERAL LABORER Ot J44.9 CHRONIC OBSTRUCTIVE PULMONARY DISEASE, U 09/20/2015 MELLYLUIGI MARTINEZHER L GENERAL LABORER Ot R06.00 DYSPNEA, UNSPECIFIED 09/20/2015 BAIMA, ESTELA L GENERAL LABORER Ot R07.9 CHEST PAIN, UNSPECIFIED 09/20/2015 BAIMALUIGIESTELA L GENERAL LABORER Ot Z79.01 MCC (CURRENT) USE OF ANTICOAGULANT 02/25/2016 Ot 709.9 [...] ACUTE OR CH 02/25/2016 RITA ESTELA L GENERAL LABORER Ot G47.30 SLEEP APNEA, UNSPECIFIED 02/25/2016 MELLYMA ESTELA L GENERAL LABORER Ot I48.91 UNSPECIFIED ATRIAL FIBRILLATION 02/25/2016 MELLYJUAN ESTELA L GENERAL LABORER Ot J44.9 CHRONIC OBSTRUCTIVE PULMONARY DISEASE, U 02/25/2016 MELLYMA ESTELA L GENERAL LABORER Ot R06.00 DYSPNEA, UNSPECIFIED 02/25/2016 MELLYMA ESTELA L GENERAL LABORER Ot R07.9 CHEST PAIN, UNSPECIFIED 02/25/2016 ESTELA SALINAS GENERAL LABORER Ot Z79.01 FLOW SPECIALIST (CURRENT) USE OF ANTICOAGULANT 02/26/2016 ZARI LU, [...] SPECIFIED ACUTE OR CH 03/03/2016 ESTELA SALINAS GENERAL LABORER Ot G47.30 SLEEP APNEA, UNSPECIFIED 03/03/2016 ESTELA SALINAS GENERAL LABORER Ot I48.91 UNSPECIFIED ATRIAL FIBRILLATION 03/03/2016 ESTELA SALINAS GENERAL LABORER Ot J44.9 CHRONIC OBSTRUCTIVE PULMONARY DISEASE, U 03/03/2016 ESTELA SALINAS GENERAL LABORER Ot R06.00 DYSPNEA, UNSPECIFIED 03/03/2016 ESTELA SALINAS GENERAL LABORER Ot R07.9 CHEST PAIN, UNSPECIFIED 03/03/2016 ESTELA SALINAS GENERAL LABORER Ot Z79.01 MCC (CURRENT) USE OF ANTICOAGULANT 03/03/2016 SAIDA HAMEED [...] UNSPECIFIED 05/13/2016 NICK DODEANNAA K Ot Z79.82 MCC (CURRENT) USE OF ASPIRIN 05/13/2016 NICK DO CARISSA K Ot Z79.891 MCC (CURRENT) USE OF OPIATE ANALGE 05/13/2016 NICK DO CARISSA K Ot Z79.899 OTHER MCC (CURRENT) DRUG THERAPY 05/14/2016 NICK DODEANNAA K [...] 05/14/2016 NICK DO CARISSA K Ot Z79.82 FLOW SPECIALIST (CURRENT) USE OF ASPIRIN 05/14/2016 NICK DO CARISSA K Ot Z79.891 FLOW SPECIALIST (CURRENT) USE OF OPIATE ANALGE 05/14/2016 NICK DEANNA SALAZARA K Ot Z79.899 OTHER MCC (CURRENT) DRUG THERAPY 08/25/2016 Ot 709.9 SKIN [...] SPECIFIED ACUTE OR CH 08/25/2016 MELLYMAESTELA L GENERAL LABORER Ot G47.30 SLEEP APNEA, UNSPECIFIED 08/25/2016 BAIMA ESTELA L GENERAL LABORER Ot I48.91 UNSPECIFIED ATRIAL FIBRILLATION 08/25/2016 ESTELA SALINAS L GENERAL LABORER Ot J44.9 CHRONIC OBSTRUCTIVE PULMONARY DISEASE, U 08/25/2016 ESTELA SALINAS L GENERAL LABORER Ot R06.00 DYSPNEA, UNSPECIFIED 08/25/2016 MELLYMAESTELA L GENERAL LABORER Ot R07.9 CHEST PAIN, UNSPECIFIED 08/25/2016 ESTELA SALINAS L GENERAL LABORER Ot Z79.01 MCC (CURRENT) USE OF ANTICOAGULANT 08/25/2016 SAIDA HAMEED MD Ot R06.2 WHEEZING 08/25/2016 Ot V58.61 ANTICOAGULANTS,LT,CURRENT USE 08/25/2016 Ot V58.83 ENCOUNTER FOR THERAPEUTIC DRUG MONITORIN 08/25/2016 JAMES PHELAN MD Ot I10 ESSENTIAL (PRIMARY) HYPERTENSION 08/25/2016 JAMES PHELNA MD Ot I25.10 ATHSCL HEART DISEASE OF [place] CORONARY 08/25/2016 JAMES PHELAN MD Ot J44.9 CHRONIC OBSTRUCTIVE PULMONARY DISEASE, U 08/25/2016 JAMES PHELAN MD Ot M79.662 PAIN IN LEFT LOWER LEG 08/25/2016 JAMES PHELAN MD Ot R07.9 CHEST PAIN, UNSPECIFIED 08/25/2016 JAMES PHELAN MD Ot R42 DIZZINESS AND GIDDINESS 08/25/2016 JAMES PHELAN MD Ot Z79.899 OTHER MCC (CURRENT) DRUG THERAPY 08/26/2016 JAMES PHELAN MD Ot I10 ESSENTIAL (PRIMARY) HYPERTENSION 08/26/2016 JAMES PHELAN MD Ot I25.10 ATHSCL HEART DISEASE OF [place] CORONARY 08/26/2016 JAMES PHELAN MD, Ot J44.9 CHRONIC OBSTRUCTIVE PULMONARY DISEASE, U 08/26/2016 JAMES PHELAN MD Ot M79.662 PAIN IN LEFT LOWER LEG 08/26/2016 JAMES PHELAN MD Ot R07.9 CHEST PAIN, UNSPECIFIED 08/26/2016 JAMES PHELAN MD, Ot R42 DIZZINESS AND GIDDINESS 08/26/2016 JAMES PHELAN MD, Ot Z79.899 OTHER FLOW SPECIALIST (CURRENT) DRUG THERAPY 11/30/2016 HUGH CORDOVA MD [...] MD Ot I25.10 ATHSCL HEART DISEASE OF [place] CORONARY 11/30/2016 HUGH CORDOVA MD Ot I25.2 [...] UNSPECIFIED 11/30/2016 HUGH CORDOVA MD Ot Z79.01 MCC (CURRENT) USE OF ANTICOAGULANT 11/30/2016 HUGH CORDOVA MD Ot Z79.82 MCC (CURRENT) USE OF ASPIRIN 11/30/2016 HUGH CORDOVA [...] MD Ot I25.10 ATHSCL HEART DISEASE OF [place] CORONARY 11/30/2016 HUGH CORDOVA MD Ot I25.2 [...] UNSPECIFIED 11/30/2016 HUGH CORDOVA MD, Ot Z79.01 MCC (CURRENT) USE OF ANTICOAGULANT 11/30/2016 HUGH CORDOVA MD, Ot Z79.82 FLOW SPECIALIST (CURRENT) USE OF ASPIRIN 11/30/2016 HUGH CORDOVA [...] APRN Ot I25.10 ATHSCL HEART DISEASE OF [place] CORONARY 01/12/2017 JONNATHAN MALLOY APRN Ot I25.2 OLD MYOCARDIAL INFARCTION 01/12/2017 JONNATHAN MALLOY APRN Ot I48.91 UNSPECIFIED ATRIAL FIBRILLATION 01/12/2017 JONNATHAN MALLOY APRN Ot J45.909 UNSPECIFIED ASTHMA, UNCOMPLICATED 01/12/2017 JONNATHAN MALLOY APRN Ot K21.9 GASTRO-ESOPHAGEAL REFLUX DISEASE WITHOUT 01/12/2017 JONNATHAN MALLOY APRN Ot R06.00 DYSPNEA, UNSPECIFIED 01/12/2017 JONNATHAN MALLOY APRN Ot Z79.82 FLOW SPECIALIST (CURRENT) USE OF ASPIRIN 01/12/2017 JONNATHAN MALLOY APRN Ot Z87.81 PERSONAL HISTORY OF (HEALED) TRAUMATIC F 01/12/2017 JONNATHAN MALLOY APRN Ot Z90.710 ACQUIRED ABSENCE OF BOTH CERVIX AND UTER 01/12/2017 JONNATHAN MALLOY APRN Ot Z98.51 TUBAL LIGATION STATUS 01/14/2017 JONNATHAN MALLOY APRN Ot E03.9 HYPOTHYROIDISM, UNSPECIFIED 01/14/2017 JONNATHAN MALLOY APRN Ot E78.00 PURE HYPERCHOLESTEROLEMIA, UNSPECIFIED 01/14/2017 JNONATHAN MALLOY APRN Ot F31.9 BIPOLAR DISORDER, UNSPECIFIED 01/14/2017 JONNATHAN MALLOY APRN Ot F41.9 ANXIETY DISORDER, UNSPECIFIED 01/14/2017 JONNATHAN MALLOY APRN Ot G43.909 MIGRAINE, UNSP, NOT INTRACTABLE, WITHOUT 01/14/2017 JONNATHAN MALLOY APRN Ot I10 ESSENTIAL (PRIMARY) HYPERTENSION 01/14/2017 JONNATHAN MALLOY APRN Ot I25.10 ATHSCL HEART DISEASE OF [place] CORONARY 01/14/2017 JONNATHAN MALLOY APRN Ot I25.2 OLD MYOCARDIAL INFARCTION 01/14/2017 JONNATHAN MALLOY APRN Ot I48.91 UNSPECIFIED ATRIAL FIBRILLATION 01/14/2017 JONNATHAN MALLOY APRN Ot J45.909 UNSPECIFIED ASTHMA, UNCOMPLICATED 01/14/2017 JONNATHAN MALLOY APRN Ot K21.9 GASTRO-ESOPHAGEAL REFLUX DISEASE WITHOUT 01/14/2017 JONNATHAN MALLOY APRN Ot R06.00 DYSPNEA, UNSPECIFIED 01/14/2017 JONNATHAN MALLOY APRN Ot Z79.82 MCC (CURRENT) USE OF ASPIRIN 01/14/2017 JONNATHAN MALLOY [...] APRN Ot I25.10 ATHSCL HEART DISEASE OF [place] CORONARY 01/18/2017 JONNATHAN MALLOY APRN Ot I25.2 OLD MYOCARDIAL INFARCTION 01/18/2017 JONNATHAN MALLOY APRN Ot I48.91 UNSPECIFIED ATRIAL FIBRILLATION 01/18/2017 JONNATHAN MALLOY APRN Ot J45.909 UNSPECIFIED ASTHMA, UNCOMPLICATED 01/18/2017 JONNATHAN MALLOY APRN Ot K21.9 GASTRO-ESOPHAGEAL REFLUX DISEASE WITHOUT 01/18/2017 JONNATHAN MALLOY APRN Ot R06.00 DYSPNEA, UNSPECIFIED 01/18/2017 JONNATHAN MALLOY APRN Ot Z79.82 FLOW SPECIALIST (CURRENT) USE OF ASPIRIN 01/18/2017 JONNATHAN MALLOY [...] K Ot I25.10 ATHSCL HEART DISEASE OF [place] CORONARY 03/28/2017 CARISSA ROMERO DO Ot I25.2 [...] KNEE 03/28/2017 CARISSA ROMERO DO Ot Z79.01 MCC (CURRENT) USE OF ANTICOAGULANT 03/28/2017 CARISSA ROMERO DO Ot Z79.82 MCC (CURRENT) USE OF ASPIRIN 03/28/2017 CARISSA ROMERO [...] DO Ot I25.10 ATHSCL HEART DISEASE OF [place] CORONARY 03/31/2017 CARISSA ROMERO DO Ot I25.2 [...] 03/31/2017 NICK SALAZAR CARISSA Roberto Ot Z79.01 FLOW SPECIALIST (CURRENT) USE OF ANTICOAGULANT 03/31/2017 NICK SALAZAR CARISSA K Ot Z79.82 MCC (CURRENT) USE OF ASPIRIN 03/31/2017 NICK SALAZAR [...] MD Ot I10 ESSENTIAL (PRIMARY) HYPERTENSION 06/08/2017 HUHG CORDOVA MD Ot I25.10 ATHSCL HEART DISEASE OF [place] CORONARY 06/08/2017 HUGH CORDOVA MD, Ot I25.2 OLD MYOCARDIAL INFARCTION 06/08/2017 HUGH CORDOVA MD, Ot I48.91 UNSPECIFIED ATRIAL FIBRILLATION 06/08/2017 HUGH CORDOVA MD, Ot I73.9 PERIPHERAL VASCULAR DISEASE, UNSPECIFIED 06/08/2017 HUGH CORDOVA MD, Ot J44.9 CHRONIC OBSTRUCTIVE PULMONARY DISEASE, U 06/08/2017 HUGH CORDOVA MD Ot R04.0 EPISTAXIS 06/08/2017 HUGH CORDOVA MD, Ot Z79.01 MCC (CURRENT) USE OF ANTICOAGULANT 06/08/2017 HUGH CORDOVA MD, Ot Z79.82 FLOW SPECIALIST (CURRENT) USE OF ASPIRIN 06/08/2017 HUGH CORDOVA MD, Ot Z87.01 PERSONAL HISTORY OF PNEUMONIA (RECURRENT 06/08/2017 HUGH CORDOVA MD, Ot Z90.710 ACQUIRED ABSENCE OF BOTH CERVIX AND UTER 06/08/2017 HUGH CORDOVA MD, Ot Z98.51 TUBAL LIGATION STATUS 06/09/2017 MOLLY ARANA Ot E03.9 HYPOTHYROIDISM, UNSPECIFIED 06/09/2017 MOLLY ARANA Ot E78.00 PURE HYPERCHOLESTEROLEMIA, UNSPECIFIED 06/09/2017 MOLLY ARANA Ot F31.9 BIPOLAR DISORDER, UNSPECIFIED 06/09/2017 MOLLY ARNAA Ot F41.9 ANXIETY DISORDER, UNSPECIFIED 06/09/2017 MOLLY ARANA Ot G43.909 MIGRAINE, UNSP, NOT INTRACTABLE, WITHOUT 06/09/2017 MOLLY ARANA Ot G47.30 SLEEP APNEA, UNSPECIFIED 06/09/2017 MOLLY ARANA Ot I10 ESSENTIAL (PRIMARY) HYPERTENSION 06/09/2017 MOLLY ARANA Ot I25.10 ATHSCL HEART DISEASE OF [place] CORONARY 06/09/2017 MOLLY ARANA Ot I25.2 OLD MYOCARDIAL INFARCTION 06/09/2017 MOLLY ARANA Ot I48.91 UNSPECIFIED ATRIAL FIBRILLATION 06/09/2017 MOLLY ARANA Ot I73.9 PERIPHERAL VASCULAR DISEASE, UNSPECIFIED 06/09/2017 MOLLY ARANA Ot J34.89 OTHER SPECIFIED DISORDERS OF NOSE AND NA 06/09/2017 MOLLY ARANA Ot J45.909 UNSPECIFIED ASTHMA, UNCOMPLICATED 06/09/2017 MOLLY ARANA Ot R04.0 EPISTAXIS 06/09/2017 MOLLY ARANA Ot Z79.01 FLOW SPECIALIST (CURRENT) USE OF ANTICOAGULANT 06/09/2017 MOLLY ARANA Ot Z79.82 MCC (CURRENT) USE OF ASPIRIN 06/09/2017 MOLLY ARANA [...] MD Ot I25.10 ATHSCL HEART DISEASE OF [place] CORONARY 06/10/2017 HUGH CORDOVA MD Ot I25.2 OLD MYOCARDIAL INFARCTION 06/10/2017 HUGH CORDOVA MD Ot I48.91 UNSPECIFIED ATRIAL FIBRILLATION 06/10/2017 HUGH CORDOVA MD Ot I73.9 PERIPHERAL VASCULAR DISEASE, UNSPECIFIED 06/10/2017 HUGH CORDOVA MD, Ot J44.9 CHRONIC OBSTRUCTIVE PULMONARY DISEASE, U 06/10/2017 HUGH CORDOVA MD Ot R04.0 EPISTAXIS 06/10/2017 HUGH CORDOVA MD, Ot Z79.01 MCC (CURRENT) USE OF ANTICOAGULANT 06/10/2017 HUGH CORDOVA MD Ot Z79.82 MCC (CURRENT) USE OF ASPIRIN 06/10/2017 HUGH CORDOVA [...] ARANA Ot I25.10 ATHSCL HEART DISEASE OF [place] CORONARY 06/11/2017 MOLLY ARANA Ot I25.2 OLD MYOCARDIAL INFARCTION 06/11/2017 MOLLY ARANA Ot I48.91 UNSPECIFIED ATRIAL FIBRILLATION 06/11/2017 MOLLY ARANA Ot I73.9 PERIPHERAL VASCULAR DISEASE, UNSPECIFIED 06/11/2017 MOLLY ARANA Ot J34.89 OTHER SPECIFIED DISORDERS OF NOSE AND NA 06/11/2017 MOLLY ARANA Ot J45.909 UNSPECIFIED ASTHMA, UNCOMPLICATED 06/11/2017 MOLLY ARANA Ot R04.0 EPISTAXIS 06/11/2017 MOLLY ARANA Ot Z79.01 FLOW SPECIALIST (CURRENT) USE OF ANTICOAGULANT 06/11/2017 MOLLY ARANA Ot Z79.82 FLOW SPECIALIST (CURRENT) USE OF ASPIRIN 06/11/2017 MOLLY ARANA [...] K Ot I25.10 ATHSCL HEART DISEASE OF [place] CORONARY 07/18/2017 CARISSA ROMERO DO Ot I25.2 [...] KNEE 07/18/2017 CARISSA ROMERO DO Ot Z79.01 FLOW SPECIALIST (CURRENT) USE OF ANTICOAGULANT 07/18/2017 CARISSA ROMERO DO Ot Z79.82 MCC (CURRENT) USE OF ASPIRIN 07/18/2017 CARISSA ROMERO [...] SPECIFIED ACUTE OR CH 02/15/2018 ESTELA SALINAS GENERAL LABORER Ot G47.30 SLEEP APNEA, UNSPECIFIED 02/15/2018 ESTELA SALINAS L GENERAL LABORER Ot I48.91 UNSPECIFIED ATRIAL FIBRILLATION 02/15/2018 ESTELA SALINAS GENERAL LABORER Ot J44.9 CHRONIC OBSTRUCTIVE PULMONARY DISEASE, U 02/15/2018 ESTELA SALINAS L GENERAL LABORER Ot R06.00 DYSPNEA, UNSPECIFIED 02/15/2018 ESTELA SALINAS L GENERAL LABORER Ot R07.9 CHEST PAIN, UNSPECIFIED 02/15/2018 ESTELA SALINAS L GENERAL LABORER Ot Z79.01 MCC (CURRENT) USE OF ANTICOAGULANT 02/15/2018 ZARI LU, [...] culture - 08/25/16 16:00 Bacterial urine culture [id number] NRG COLONY COUNT 10,000/ML - 100,000/ML NRG [...] blood basophil count (count/volume) 0.0 10*3/uL 0.0-0.1 Complete blood count (CBC) with automated white blood cell (WBC) differential - 02/20/18 13:20 Blood leukocytes automated count (number/volume) 5.2 10*3/uL 4.3-11.0 Blood erythrocytes automated count (number/volume) 4.29 10*6/uL 4.35-5.85 Venous blood hemoglobin measurement (mass/volume) 12.9 g/dL 11.5-16.0 Blood hematocrit (volume fraction) 40 % 35-52 Automated erythrocyte mean corpuscular volume 92 [foz_us] 80-99 Automated erythrocyte mean corpuscular hemoglobin (mass per erythrocyte) 30 pg 25-34 Automated erythrocyte mean corpuscular hemoglobin concentration measurement ( mass/volume) 33 g/dL 32-36 Automated erythrocyte distribution width ratio 14.0 % 10.0-14.5 Automated blood platelet count (count/volume) 181 10*3/uL 130-400 Automated blood platelet mean volume measurement 9.9 [foz_us] 7.4-10.4 Automated blood neutrophils/100 leukocytes 63 % 42-75 Automated blood lymphocytes/100 leukocytes 23 % 12-44 Blood monocytes/100 leukocytes 9 % 0-12 Automated blood eosinophils/100 leukocytes 4 % 0-10 Automated blood basophils/100 leukocytes 1 % 0-10 Blood neutrophils automated count (number/volume) 3.3 10*3 1.8-7.8 Blood lymphocytes automated count (number/volume) 1.2 10*3 1.0-4.0 Blood monocytes automated count (number/volume) 0.5 10*3 0.0-1.0 Automated eosinophil count 0.2 10*3/uL 0.0-0.3 Automated blood basophil count (count/volume) 0.0 10*3/uL 0.0-0.1 Comprehensive metabolic panel - 02/20/18 13:20 Serum or plasma sodium measurement (moles/volume) 139 mmol/L 135-145 Serum or plasma potassium measurement (moles/volume) 4.1 mmol/L 3.6-5.0 Serum or plasma chloride measurement (moles/volume) 104 mmol/L 98-107 Carbon dioxide 25 mmol/L 21-32 Serum or plasma anion gap determination (moles/volume) 10 mmol/L 5-14 Serum or plasma urea nitrogen measurement (mass/volume) 15 mg/dL 7-18 Serum or plasma creatinine measurement (mass/volume) 0.98 mg/dL 0.60-1.30 Serum or plasma urea nitrogen/creatinine mass ratio 15 NRG Serum or plasma creatinine measurement with calculation of estimated glomerular filtration rate 57 NRG Serum or plasma glucose measurement (mass/volume) 85 mg/dL 70-105 Serum or plasma calcium measurement (mass/volume) 9.5 mg/dL 8.5-10.1 Serum or plasma total bilirubin measurement (mass/volume) 0.4 mg/dL 0.1-1.0 Serum or plasma alkaline phosphatase measurement (enzymatic activity/volume) 78 U/L 40-136 Serum or plasma aspartate aminotransferase measurement (enzymatic activity/ volume) 33 U/L 5-34 Serum or plasma alanine aminotransferase measurement (enzymatic activity/volume ) 26 U/L 0-55 Serum or plasma protein measurement (mass/volume) 7.0 g/dL 6.4-8.2 Serum or plasma albumin measurement (mass/volume) 4.2 g/dL 3.2-4.5 CALCIUM CORRECTED 9.3 mg/dL 8.5-10.1 Magnesium - 02/20/18 13:20 Magnesium 2.2 mg/dL 1.8-2.4 PT panel in platelet poor plasma by coagulation assay - 02/20/18 13:20 Prothrombin time (PT) in platelet poor plasma by coagulation assay 14.1 s 12.2-14.7 INR in platelet poor plasma or blood by coagulation assay 1.1 0.8-1.4 Activated partial thromboplastin time (aPTT) in platelet poor plasma bycoagulation assay - 02/20/18 13:20 Activated partial thromboplastin time (aPTT) in platelet poor plasma bycoagulation assay 29 s 24-35 Serum or plasma troponin i.cardiac measurement (mass/volume) - 02/20/18 13:20 Serum or plasma troponin i.cardiac measurement (mass/volume) < ng/ mL <0.30 Myoglobin, serum - 02/20/18 13:20 Myoglobin, serum 63.7 ng/mL 10.0-92.0 Serum or plasma lithium measurement (moles/volume) - 02/20/18 13:20 BNP level 140.0 pg/mL <100.0 Encounters ACCT No. Visit Date/Time Discharge Status Pt. Type Provider Facility Loc./Unit Complaint [id number] 02/15/2018 09:44:00 02/15/2018 13:00:00 DIS Emergency JONNATHAN MALLOY APRN [facility] ER STOMACH PAIN; CHEST PAIN [id number] 06/09/2017 15:00:00 06/09/2017 16:58:00 DIS Emergency MOLLY ARANA [facility] ER NEEDS ANTIBIOTIC HERE LAST NIGHT FOR NOSE BLEED [id number] 06/08/2017 21:55:00 06/08/2017 23:20:00 DIS Emergency HUGH CORDOVA MD [facility] ER NOSE BLEED FOR 45 MINUTES - BLOOD THINNERS [id number] 04/29/2017 15:16:00 04/29/2017 23:59:59 CLS Outpatient SCARLET GARRETT APRN [facility] RAD M554.42 [id number] 03/28/2017 15:34:00 03/28/2017 18:53:00 DIS Emergency CARISSA ROMERO DO [facility] ER L LEG SWELLING/PAIN [id number] 01/12/2017 15:46:00 01/12/2017 17:08:00 DIS Emergency JONNATHAN MALLOY APRN [facility] ER TROUBLE BREATHING; HEAVINESS IN CHEST [id number] 11/29/2016 23:07:00 11/30/2016 02:36:00 DIS Emergency HUGH CORDOVA MD [facility] ER D/N FEVER WEAK [id number] 08/25/2016 14:30:00 08/25/2016 18:32:00 DIS Emergency JAMES PHELAN MD [facility] ER DIZZINESS/NAUSEA/ SHAKEY LEFT CALF PAIN [id number] 05/12/2016 23:38:00 05/13/2016 01:24:00 DIS Emergency CARISSA ROMERO DO [facility] ER N/V/D [id number] 02/25/2016 14:56:00 02/25/2016 23:59:59 CLS Outpatient SAIDA HAMEED MD [facility] RAD WHEEZING [id number] 08/13/2015 08:10:00 08/13/2015 23:59:59 CLS Outpatient ESTELA SALINAS [facility] CARD CHEST PAIN, PALPITATIONS,AFIB [id number] 06/16/2015 12:33:00 06/16/2015 14:55:00 DIS Emergency SANDRITA ALVARADO MD [facility] ER SOB/COPD [id number] 04/05/2015 09:50:00 04/05/2015 12:07:00 DIS Emergency SANDRITA ALVARADO MD [facility] ER SOA [id number] 04/02/2015 12:02:00 04/04/2015 09:45:00 DIS Inpatient SAIDA HAMEED MD [facility] 4TH COPD,EXACERBATION [id number] 02/21/2015 15:46:00 02/21/2015 23:59:59 CLS Outpatient SAIDA HAMEED MD [facility] RAD BRONCHITIS [id number] 11/20/2014 23:05:00 11/22/2014 09:45:00 DIS Inpatient SAIDA HAMEED MD [facility] 4TH BLEACH FUMES EXPOSURE, COPD EXACERBATION [id number] 10/25/2014 14:21:00 10/25/2014 19:30:00 DIS Emergency JAMES PHELAN MD [facility] ER LEFT GROIN PAIN [id number] 10/13/2013 20:46:00 10/14/2013 00:44:00 DIS Emergency JULIANA HERNANDEZ DO [facility] ER L LEG PAIN; CHEST PAIN [id number] 09/25/2013 12:37:00 09/25/2013 23:59:59 CLS Outpatient JAKELUCITA SALAZAR TRACY Brenda [facility] RT COPD,AFIB [id number] 08/25/2013 00:35:00 08/25/2013 12:05:00 DIS Inpatient SAIDA HAMEED MD [facility] CSD CHEST PAIN, SUBTHERAPEUTIC INR [id number] 07/04/2013 11:07:00 07/04/2013 23:59:59 CLS Outpatient SAIDA HAMEED MD [facility] RAD SWELLING,PAIN [id number] 06/28/2013 16:29:00 06/28/2013 17:24:00 DIS Emergency NICKJona SALAZAR CARISSA Mejia [facility] ER VOMITING,COUGH, POST EXPOSURE TO CLOROX [id number] 05/21/2013 20:58:00 05/25/2013 10:45:00 DIS Inpatient SAIDA HAMEED MD [facility] 4TH COPD EXACERBATION; WEAKNESS [id number] 05/21/2013 13:28:00 05/21/2013 15:42:00 DIS Emergency JONNATHAN MALLOY [employer] [facility] ER SOA CONGESTION R ARM PAIN [id number] 03/24/2013 17:10:00 03/25/2013 09:50:00 DIS Inpatient VIELKA MORENO MD [facility] ICU CHEST PAIN [id number] 03/01/2013 01:10:00 03/01/2013 14:29:00 DIS Inpatient SAIDA HAMEED MD [facility] 4TH ACUTE EXACERBATION OF COPD [id number] 02/13/2013 12:59:00 02/13/2013 14:18:00 DIS Emergency JONNATHAN MALLOY [employer] [facility] ER LEFT LEG/GROIN PAIN [id number] 12/27/2012 13:08:00 12/27/2012 15:00:00 DIS Emergency JONNATHAN MALLOY [employer] [facility] ER RIGHT ARM NUMBNESS/LEFT THIGH KNOT [id number] 12/02/2012 08:45:00 12/02/2012 23:59:59 CLS Outpatient JAMES PHELAN MD [facility] LAB SUPRATHERAPEUTIC INR [id number] 11/30/2012 15:06:00 11/30/2012 18:11:00 DIS Bairon PHELAN MD, JAMES Rodríguez [facility] ER SOA,HEADACHE, DIZZINESS [id number] 10/30/2012 11:45:00 10/30/2012 23:59:59 CLS Outpatient [id number] 08/20/2012 10:02:00 08/20/2012 23:59:59 CLS Outpatient [id number] 02/20/2018 13:35:00 Document Registration [id number] 02/17/2018 12:09:00 Document Registration [id number] 10/25/2014 14:22:00 Document Registration [id number] 10/25/2014 14:22:00 Document Registration [id number] 10/25/2014 14:21:00 Document Registration [id number] 10/25/2014 14:21:00 Document Registration [id number] 10/25/2014 14:21:00 Document Registration [id number] 10/25/2014 14:21:00 Document Registration [id number] 10/25/2014 14:21:00 Document Registration [id number] 10/25/2014 14:21:00 Document Registration [id number] 10/25/2014 14:21:00 Document Registration [id number] 07/01/2014 22:30:00 Document Registration [id number] 06/13/2012 19:15:00 Document Registration [id number] 02/23/2012 01:00:00 Document Registration [id number] 12/03/2011 00:00:00 Document Registration [id number] 11/12/2011 21:51:00 Document Registration [id number] 10/13/2011 08:28:00 Document Registration [id number] 09/03/2011 12:33:00 Document Registration [id number] 08/21/2011 20:45:00 Document Registration [id number] 03/24/2011 20:48:00 Document Registration [id number] 01/24/2011 21:19:00 Document Registration [id number] 09/28/2010 18:20:00 Document Registration [id number] 04/29/2010 21:21:00 Document Registration [id number] 02/10/2010 09:58:00 Document Registration [id number] 01/29/2010 14:43:00 Document Registration [id number] 11/25/2009 11:02:00 Document Registration [id number] 11/13/2009 23:33:00 Document Registration [id number] 10/28/2009 11:54:00 Document Registration [id number] 09/27/2009 10:28:00 Document Registration [id number] 09/20/2009 15:31:00 Document Registration [id number] 07/29/2009 13:39:00 Document Registration [id number] 07/29/2009 12:23:00 Document Registration [id number] 11/20/2014 19:15:56 ACT Document Registration [id number] 12/02/2017 15:15:00 12/02/2017 23:59:59 [facility]arro [facility]
[2018-02-20 17:00] VITALS: BP 161/72
[2018-02-20] MEDS: NS IV 1000 ML 1,000 ML IV SCH (17:12)
[2018-02-20] MEDS ORDERED: FLU QUADRIvalent (5+ YOA) 2018-2019 (AFLURIA) 0.5 ML IM ONE (17:15)
[2018-02-20 18:00] VITALS: BP 144/93
--- NOTE | 2018-02-20 18:13 | Consultation-Cardiology ---
HPI-Cardiology Cardiology Consultation Date of Consultation 02/20/18 Date of Admission Time Seen by Provider: 18:08 Indication: Shortness of breath HPI 63 years old lady with history of recurrent chest pain, had a cardiac catheterization in 2010, stress test in 2015, has been seen and followed by Dr. Mullen. Was in her usual state of health until this afternoon. She had a sudden onset of shortness of breath, dizziness and diaphoresis lasted for about half an hour and resolved completely spontaneously. Has been having erythema and pain at her left ankle. She has been receiving Bactrim and her last dose is today. Denied any chest pain. Denied any palpitation. No syncope was reported. Currently feeling better. Home Medications & Allergies Allergies: Coded Allergies: No Known Drug Allergies (Verified , 04/02/15) Home Medication List Reviewed: Yes [id number]-Mzknuv Hx Patient Social History Marital Status: Alcohol Use: Denies Use Recreational Drug Use: No Smoking Status: Never a Smoker 2nd Hand Smoke Exposure: No Recent Foreign Travel: No Recent Infectious Disease Expo: No Recent Hopitalizations: No Physical Abuse Screen: No Sexual Abuse: No Immunizations Up To Date Tetanus Booster (TDap): Unknown Date of Pneumonia Vaccine: Apr 26, 2012 Date of Influenza Vaccine: Feb 24, 2015 Past Medical History Past medical history as described below Family Medical History Significant Family History: No Pertinent Family Hx Family History: Cancer 03 MOTHER, Onset:60 years & older son, Onset:10's - 15 Dementia 03 MOTHER, Onset:60 years & older Family history: Alzheimer's disease 03 MOTHER, Onset:60 years & older Family history: Hypertension 09 BROTHER, Onset:30's - 40 Family history: Thyroid disorder daughter, Onset:20's - 25 History of - respiratory disease 09 BROTHER, Onset:[place] Review of Systems Constitutional: no symptoms reported, see HPI EENTM: see HPI, no symptoms reported Respiratory: no symptoms reported, see HPI, short of breath (As described in history of present illness) Cardiovascular: see HPI; No chest pain, No edema, No Hx of Intervention, No palpitations, No syncope, No vascular heart diseas, No other Gastrointestinal: no symptoms reported, see HPI Genitourinary: no symptoms reported, see HPI Musculoskeletal: no symptoms reported, see HPI Skin: see HPI, other (Erythema and tenderness at the left ankle) Psychiatric/Neurological: No Symptoms Reported, See HPI Reviewed Test Results Reviewed Test Results Lab Laboratory Tests Test 02/20/18 13:20 02/20/18 16:08 Range/Units White Blood Count 5.2 4.3-11.0 10^3/uL Red Blood Count 4.29 L 4.35-5.85 10^6/uL Hemoglobin 12.9 11.5-16.0 G/DL Hematocrit 40 35-52 % Mean Corpuscular Volume 92 80-99 FL Mean Corpuscular Hemoglobin 30 25-34 PG Mean Corpuscular Hemoglobin Concent 33 32-36 G/DL Red Cell Distribution Width 14.0 10.0-14.5 % Platelet Count 181 130-400 10^3/uL Mean Platelet Volume 9.9 7.4-10.4 FL Neutrophils (%) (Auto) 63 42-75 % Lymphocytes (%) (Auto) 23 12-44 % Monocytes (%) (Auto) 9 0-12 % Eosinophils (%) (Auto) 4 0-10 % Basophils (%) (Auto) 1 0-10 % Neutrophils # (Auto) 3.3 1.8-7.8 X 10^3 Lymphocytes # (Auto) 1.2 1.0-4.0 X 10^3 Monocytes # (Auto) 0.5 0.0-1.0 X 10^3 Eosinophils # (Auto) 0.2 0.0-0.3 10^3/uL Basophils # (Auto) 0.0 0.0-0.1 10^3/uL Prothrombin Time 14.1 12.2-14.7 SEC INR Comment 1.1 0.8-1.4 Activated Partial Thromboplast Time 29 24-35 SEC Sodium Level 139 135-145 MMOL/L Potassium Level 4.1 3.6-5.0 MMOL/L Chloride Level 104 98-107 MMOL/L Carbon Dioxide Level 25 21-32 MMOL/L Anion Gap 10 5-14 MMOL/L Blood Urea Nitrogen 15 7-18 MG/DL Creatinine 0.98 0.60-1.30 MG/DL Estimat Glomerular Filtration Rate 57 BUN/Creatinine Ratio 15 Glucose Level 85 70-105 MG/DL Calcium Level 9.5 8.5-10.1 MG/DL Corrected Calcium 9.3 8.5-10.1 MG/DL Magnesium Level 2.2 1.8-2.4 MG/DL Total Bilirubin 0.4 0.1-1.0 MG/DL Aspartate Amino Transf (AST/SGOT) 33 5-34 U/L Alanine Aminotransferase (ALT/SGPT) 26 0-55 U/L Alkaline Phosphatase 78 40-136 U/L Myoglobin 63.7 10.0-92.0 NG/ML Troponin I < 0.30 < 0.30 <0.30 NG/ML B-Type Natriuretic Peptide 140.0 H <100.0 PG/ML Total Protein 7.0 6.4-8.2 GM/DL Albumin 4.2 3.2-4.5 GM/DL Physical Exam Vital Signs Vital Signs - First Documented 02/20/18 13:10 Temp 98.1 Pulse 77 Resp 18 B/P (MAP) 131/88 (102) Pulse Ox 98 O2 Delivery Nasal Cannula O2 Flow Rate 2.00 Capillary Refill : Less Than 3 Seconds Height, Weight, BMI Height: 5'10.00" Weight: 290lbs. 0.0oz. 131.873351dn; 41.6 BMI Method:Stated General Appearance: No Apparent Distress, WD/WN Eyes: Bilateral Eye Normal Inspection, Bilateral Eye PERRL, Bilateral Eye EOMI HEENT: PERRL/EOMI, TMs Normal, Normal ENT Inspection, Pharynx Normal Neck: Full Range of Motion, Normal Inspection, Non Tender, Supple, Carotid Bruit Respiratory: Chest Non Tender, Lungs Clear, Normal Breath Sounds, No Accessory Muscle Use, No Respiratory Distress Cardiovascular: Regular Rate, Rhythm, No Edema, No Gallop, No JVD, No Murmur, Normal Peripheral Pulses Gastrointestinal: Normal Bowel Sounds, No Organomegaly, No Pulsatile Mass, Non Tender, Soft Back: Normal Inspection, No CVA Tenderness, No Vertebral Tenderness Extremity: Normal Capillary Refill, Normal Inspection, Normal Range of Motion, Non Tender, No Calf Tenderness, No Pedal Edema Neurologic/Psychiatric: Alert, Oriented x3, No Motor/Sensory Deficits, Normal Mood/Affect Skin: Normal Color, Warm/Dry, Other (Erythema and tenderness at the left ankle) Lymphatic: No Adenopathy A/P-Cardiology Admission Diagnosis Shortness of breath Cellulitis Hypertension Hyperlipidemia Assessment/Plan Transient shortness of breath, fully resolved, associated with dizziness and nausea. No further episodes were reported, cardiac enzymes were negative. EKG has mild abnormality. Will evaluate 2-D echocardiogram History of chest pain, had a cardiac catheterization in 2010 which was normal, had multiple stress test last was done by Dr. Mullen in 2016 reported as no ischemia. Erythema and tenderness, probable cellulitis at the left ankle, has been on Bactrim as an outpatient. Hypertension, restart home medication monitor blood pressure Hyperlipidemia, monitor lipids History of paroxysmal atrial fibrillation, maintained on Eliquis. COPD/obstructive sleep apnea, noncompliant with her C Pap. Gastroesophageal reflux disease Depression Hypothyroidism Clinical Quality Measures DVT/VTE Risk/Contraindication: Risk Factor Score Per Nursin RFS Level Per Nursing on Admit: 4+=Very High VIELKA MORENO MD Feb 20, 2018 18:13
[2018-02-20] MEDS ORDERED: cefTRIAXone 1 GM/10 ML for IV (ROCEPHIN) ONE ×2 (18:31→18:34)
[2018-02-20] MEDS ORDERED: NS (IVPB) 50 ML ONE (18:34)
[2018-02-20] MEDS: cefTRIAXone FOR IV USE 1,000 MG in NS (IVPB) 50 ML IV SCH (18:39)
[2018-02-20 20:00] VITALS: BP 133/73
[2018-02-20] MEDS: APIXABAN 5 MG (ELIQUIS) TABLET PO SCH (21:00)
[2018-02-20] MEDS ORDERED: MELATONIN 3 MG TABLET ONE (21:59)
[2018-02-21 00:07] VITALS: BP 139/67
[2018-02-21 04:06] LABS: CHOLESTEROL 115 MG/DL (< 200); HDL CHOLESTEROL 36 MG/DL (40-60); TRIGLYCERIDES 75 MG/DL (<150); VLDL CHOLESTEROL 15 MG/DL (5-40)
[2018-02-21 04:15] LABS: ALANINE AMINOTRANSFERASE 25 U/L (0-55); ALBUMIN 3.8 GM/DL (3.2-4.5); ALKALINE PHOSPHATASE 76 U/L (40-136); BILIRUBIN,TOTAL 0.4 MG/DL (0.1-1.0); BUN/CREATININE RATIO 13; CALCIUM 9.1 MG/DL (8.5-10.1); CARBON DIOXIDE 22 MMOL/L (21-32); CHLORIDE 105 MMOL/L (98-107); CREATININE SERUM 0.87 MG/DL (0.60-1.30); GFR ESTIMATED > 60; GLUCOSE 104 MG/DL (70-105); POTASSIUM 4.4 MMOL/L (3.6-5.0); SODIUM 139 MMOL/L (135-145); TOTAL PROTEIN 5.9 GM/DL (6.4-8.2)
[2018-02-21] MEDS ORDERED: morphine INJ 4 MG/ML 1 ML (VIAL/SYRINGE) IV PRN (06:00)
[2018-02-21] MEDS ORDERED: NITROGLYCERIN 0.4 MG SL TABS BTL 25'S SL PRN (06:00)
[2018-02-21] MEDS ORDERED: NS IV 1000 ML 1,000 ML IV SCH (06:00)
[2018-02-21 06:04] VITALS: BP 151/71
--- NOTE | 2018-02-21 06:33 | Pulmonary Consultation ---
History of Present Illness History of Present Illness Date of Consultation 02/21/18 06:28 Time Seen by Provider: 06:28 Date of Admission Reason for Visit: Shortness of breath History of Present Illness 63yo with hx of CAD, COPD, and Afib presented to ED secondary to acute SOB and LLE edema. PT had next LE doppler last week and was negative. No CP, fever, chills. Pt had associated nausea and diaphoresis with SOB. Allergies and Home Medications Allergies Coded Allergies: No Known Drug Allergies (Verified , 04/02/15) Home Medications Albuterol Sulfate/Ipratropium 3 Ml Solution, 3 ML IH Q4H PRN for SHORTNESS OF BREATH, (Reported) Amoxicillin/Potassium Clav 1 Each Tablet, 1 EACH PO BID Prescribed by: MOLLY TAN on 06/09/17 1650 Apixaban 5 Mg Tablet, 5 MG PO BID, (Reported) Aspirin 81 Mg Tablet.dr, 81 MG PO DAILY, (Reported) Citalopram Hydrobromide 40 Mg Tablet, 40 MG PO DAILY, (Reported) Cyclobenzaprine HCl 10 Mg Tablet, 10 MG PO TID PRN for MUSCLE SPASMS, (Reported) Famotidine 20 Mg Tablet, 20 MG PO BID Prescribed by: JONNATHAN MALLOY on 01/12/17 1654 Furosemide 40 Mg Tablet, 40 MG PO DAILY, (Reported) Hydrocodone Bit/Acetaminophen 1 Tab Tab, 1 TAB PO Q4H PRN for pain Prescribed by: MOLLY TAN on 06/09/17 1649 Hydrocodone/Acetaminophen 1 Each Tablet, 1 EACH PO Q6H PRN for PAIN-MODERATE Prescribed by: JONNATHAN MALOLY on 02/15/18 1252 Levothyroxine Sodium 25 Mcg Tablet, 25 MCG PO DAILY, (Reported) Meclizine HCl 25 Mg Tablet, 25 MG PO TID PRN for DIZZINESS, (Reported) Metoprolol Tartrate 50 Mg Tablet, 50 MG PO BID, (Reported) Metronidazole 500 Mg Tablet, 500 MG PO TID Prescribed by: JONNATHAN MALLOY on 02/15/18 1252 Multivit-Min/FA/Lycopene/Lut 1 Each Tablet, 1 TAB PO DAILY, (Reported) Ondansetron 8 Mg Tab.rapdis, 8 MG PO Q6H PRN for NAUSEA/VOMITING Prescribed by: JONNATHAN MALLOY on 02/15/18 1057 Potassium Chloride 20 Meq Tab.er.prt, 20 MEQ PO DAILY, (Reported) Prednisone 20 Mg Tab, 20 MG PO UD Prescribed by: SANDRITA ALVARADO on 06/16/15 1451 Simvastatin 20 Mg Tablet, 20 MG PO HS, (Reported) Sulfamethoxazole/Trimethoprim 1 Each Tablet, 1 EACH PO BID Prescribed by: JONNATHAN MALLOY on 02/15/18 1252 Past Vqzbrsz-Pwssbv-Ydiebe Hx Past Med/Social Hx: Reviewed Nursing Past Med/Soc Hx Patient Social History Alcohol Use: Denies Use Recreational Drug Use: No Smoking Status: Never a Smoker 2nd Hand Smoke Exposure: No Recent Foreign Travel: No Contact w/Someone Who Travel: No Recent Infectious Disease Expo: No Recent Hopitalizations: No Physical Abuse: No Sexual Abuse: No Immunizations Up To Date Tetanus Booster (TDap): Unknown PED Vaccines UTD: No Date of Pneumonia Vaccine: Apr 26, 2012 Date of Influenza Vaccine: Feb 24, 2015 Seasonal Allergies Seasonal Allergies: No Past Medical History Surgeries: Yes (BILATERAL LEG VEIN STRIPPING ; MULTIPLE CARDIAC CATHS; LEFT WRIST REPAIR) Appendectomy, Cardiac, Ear Surgery, Hysterectomy, Orthopedic, Tubal Ligation, Vascular Surgery Respiratory: Yes Asthma, Pneumonia, Chronic Bronchitis, Sleep Apnea, COPD Currently Using CPAP: No Currently Using BIPAP: No Cardiac: Yes ([place] 2004; VARICOSE VEINS) Atrial Fibrillation, Coronary Artery Disease, Heart Attack, High Cholesterol, Hypertension, Irregular Heartbeat, Peripheral Vascular Neurological: Yes Headaches /Migraines 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 Disorders: No Female 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 [employer] History: Hysterectomy, Menopausal Sexually Transmitted Disease: No HIV/AIDS: No Genitourinary: No Gastrointestinal: No Musculoskeletal: Yes ("PLATE IN LEFT WRIST"--NARCOTIC DEPENDENT) Arthritis, Chronic Back Pain, Fractures Endocrine: Yes Hypothyroidsim Loss of Vision: Denies Hearing Impairment: Denies Cancer: No Psychosocial: Yes Anxiety, Bipolar, Depression Integumentary: No Blood Disorders: No Adverse Reaction/Blood Tranf: No Family Medical History Cancer 03 MOTHER, Onset:60 years & older son, Onset:10's - 15 Dementia 03 MOTHER, Onset:60 years & older Family history: Alzheimer's disease 03 MOTHER, Onset:60 years & older Family history: Hypertension 09 BROTHER, Onset:30's - 40 Family history: Thyroid disorder daughter, Onset:20's - 25 History of - respiratory disease 09 BROTHER, Onset:[place] No Pertinent Family Hx Review of Systems Time Seen by Provider: 06:54 Constitutional: No: Fever, Chills, Sweats, Weakness, Malaise, Other Eyes: No: Pain, Vision change, Conjunctivae inflammation, Eyelid inflammation, Other, Redness ENT: No: Ear pain, Ear discharge, Nose pain, Nose discharge, Nose congestion, Mouth pain, Mouth swelling, Throat pain, Throat swelling, Other Respiratory: Shortness of breath, SOB with excertion; No: Cough, Dry, Wheezing , Sputum Cardiovascular: No: Chest Pain, Palpitations, Orthopnea, Paroxysmal Noc. Dyspnea, Edema, Lt Headedness, Other Sepsis Event Evaluation Height, Weight, BMI Height: 5'10.00" Weight: 282lbs. 0.0oz. 127.935476fo; 41.6 BMI Method:Stated Exam Exam Vital Signs Date Time Temp Pulse Resp B/P (MAP) Pulse Ox O2 Delivery O2 Flow Rate FiO2 02/21/18 06:04 97.0 57 13 151/71 (97) 92 02/21/18 04:10 64 12 02/21/18 01:00 73 02/21/18 00:07 97.5 77 17 139/67 (91) 96 02/21/18 00:00 96 Room Air 0.00 02/20/18 21:00 95 Room Air 02/20/18 20:00 95 Room Air 02/20/18 20:00 71 17 133/73 (93) 02/20/18 20:00 98.2 02/20/18 19:00 65 02/20/18 18:00 97.8 56 12 144/93 (110) 98 02/20/18 17:04 98 Room Air 02/20/18 17:00 60 13 161/72 (101) 96 02/20/18 16:44 70 18 128/85 (99) 98 Nasal Cannula 2.00 02/20/18 13:10 98 Nasal Cannula 2.00 02/20/18 13:10 98.1 77 18 131/88 (102) 98 I & O 02/21/18 07:00 Intake Total 380 ml Balance 380 ml Height & Weight Height: 5'10.00" Weight: 282lbs. 0.0oz. 127.395071yc; 41.6 BMI Method:Stated General Appearance: No Apparent Distress, WD/WN HEENT: PERRL/EOMI, TMs Normal, Normal ENT Inspection, Pharynx Normal Neck: Full Range of Motion, Normal Inspection, Non Tender, Supple, Carotid Bruit Respiratory: Chest Non Tender, Lungs Clear, Normal Breath Sounds, No Accessory Muscle Use, No Respiratory Distress Cardiovascular: Regular Rate, Rhythm, No Edema, No Gallop, No JVD, No Murmur, Normal Peripheral Pulses Capillary Refill: Less Than 3 Seconds Gastrointestinal: normal bowel sounds, non tender, soft Extremity: Normal Capillary Refill, Normal Inspection, Normal Range of Motion, Non Tender, No Calf Tenderness, No Pedal Edema Neurologic/Psychiatric: Alert, Oriented x3, No Motor/Sensory Deficits, Normal Mood/Affect Skin: Normal Color, Warm/Dry, Other (Erythema and tenderness at the left ankle) Lymphatic: No Adenopathy Results Lab Laboratory Tests 02/20/18 13:20 02/21/18 03:00 Assessment/Plan Assessment/Plan -Acute SOB - no known asthma -CTA is negative -Start nebulizer and Advair -LLE erythema and edema- no trauma -doppler last week was negative -will repeat bilateral LE venous and arterial dopplers -Xray of LLE hx COPD per patient however never smoker -Will have her f/u with me as out patient for testing CAD hx -Cardiology following Hx of TRACY Cesar DO Feb 21, 2018 06:33
[2018-02-21] MEDS ORDERED: RT-ALBUTEROL/IPRATROPIUM 3 ML (DUONEB) VIAL INH SCH (06:45)
[2018-02-21] MEDS ORDERED: RT-ALBUTEROL/IPRATROPIUM 3 ML (DUONEB) VIAL INH PRN (07:00)
[2018-02-21 08:00] VITALS: BP 141/75
[2018-02-21] MEDS ORDERED: RT-ADVAIR HFA 115/21 MCG PER PUFF IH SCH (08:00)
[2018-02-21 08:03] LABS: ABG BASE EXCESS 1.8 MMOL/L (-2.5-2.5); ABG OXYGEN SATURATION 95 % (94-100); ABG PCO2 43 MMHG (35-45); ABG PO2 66 MMHG (79-93); ABG TCO2 27.5 MMOL/L (21.0-31.0)
[2018-02-21 08:05] LABS: ALLENS TEST YES-POS; INSPIRED O2 ROOM AIR; PATIENT TEMP 98.1; VENTILATOR NO
[2018-02-21] MEDS: APIXABAN 5 MG (ELIQUIS) TABLET PO SCH (08:31)
[2018-02-21] MEDS: cefTRIAXone FOR IV USE 1,000 MG in NS (IVPB) 50 ML IV SCH (08:33)
[2018-02-21] MEDS: meTOprolol TARTRATE 25 MG (LOPRESSOR) TABLET PO SCH ×2 (08:33→08:44)
[2018-02-21] MEDS ORDERED: HYDR-3812 PO (08:47)
[2018-02-21] MEDS ORDERED: METR-197 PO (08:47)
[2018-02-21] MEDS ORDERED: SULF-222 PO (08:47)
[2018-02-21] MEDS ORDERED: ONDA8TAB13 PO (08:47)
--- NOTE | 2018-02-21 08:48 | Cardiology Progress Note ---
Subjective Date Seen by Provider: Feb 21, 2018 Time Seen by Provider: 08:45 Subjective/Events-last exam Patient is sitting up in bed, states she is feeling better. Denies any CP or further dyspnea. Review of Systems General: No Night Sweats, No Fatigue, No Malaise HEENT: No Visual Changes, No Dysphasia, No Sore Throat Pulmonary: No Dyspnea, No Cough Cardiovascular: Edema (left ankle); No: Chest Pain, Palpitations, Paroxysmal Noc. Dyspnea Gastrointestinal: No: Nausea, Vomiting, Abdominal Pain Genitourinary: No Dysuria, No Frequency Musculoskeletal: leg pain (left ankle ttp, mildly erythematous); No: neck pain , back pain Neurological: No: Weakness, Numbness, Change in speech, Confusion Focused Exam Lactate Level 02/20/18 18:40: Lactic Acid Level 0.61 Objective-Cardiology Exam Last Set of Vital Signs Vital Signs 02/21/18 02/21/18 06:04 08:00 Temp 98.8 Pulse 57 Resp 13 B/P (MAP) 151/71 (97) Pulse Ox 96 O2 Delivery Room Air O2 Flow Rate 0.00 Capillary Refill : Less Than 3 Seconds I&O Intake and Output 02/21/18 00:00 Intake Total 350 ml Balance 350 ml Intake Oral 200 ml IV Total 150 ml # Voids 1 Daily Weight Change No General: Alert, Oriented X3, Cooperative HEENT: Atraumatic, PERRLA Neck: Supple, No JVD, No Thyromegaly Lungs: Clear to Auscultation, Normal Air Movement Heart: Regular Rate, Normal S1, Normal S2, No Murmurs Abdomen: Normal Bowel Sounds, Soft, No Tenderness, No Hepatosplenomegaly, No Masses Extremities: No Clubbing, No Cyanosis, No Edema, Normal Pulses, No Tenderness/ Swelling Skin: No Rashes, No Breakdown, No Significant Lesion, Other (left ankle mildly erythematous) Neuro: Normal Gait, Normal Speech, Strength at 5/5 X4 Ext, Normal Tone, Sensation Intact Psych/Mental Status: Mental Status NL, Mood NL Results Lab Laboratory Tests 02/20/18 13:20 02/21/18 03:00 A/P-Cardiology Admission Diagnosis Shortness of breath Cellulitis Hypertension Hyperlipidemia Assessment/Plan Transient shortness of breath, fully resolved, associated with dizziness and nausea. No further episodes were reported, cardiac enzymes were negative. EKG has mild abnormality. 2-D echocardiogram to be read by Dr. Scott later this morning. History of chest pain, had a cardiac catheterization in 2010 which was normal, had multiple stress test last was done by Dr. Mullen in 2016 reported as no ischemia. Erythema and tenderness, probable cellulitis at the left ankle, has been on Bactrim as an outpatient. Hypertension, mildly elevated, continue to monitor. Hyperlipidemia, monitor lipids History of paroxysmal atrial fibrillation, maintained on Eliquis. COPD/obstructive sleep apnea, noncompliant with her C Pap. Gastroesophageal reflux disease Depression Hypothyroidism OK for discharge from cardiology standpoint. Follow up with Dr. Mullen in 2-3 weeks. Clinical Quality Measures DVT/VTE Risk/Contraindication: Risk Factor Score Per Nursin RFS Level Per Nursing on Admit: 4+=Very High CHARITY ALCANTAR Feb 21, 2018 08:48
--- NOTE | 2018-02-21 08:52 | Diagnostic Imaging Report ---
PROCEDURE: US Venous Lower Ext Luis. TECHNIQUE: Multiple real-time grayscale images were obtained over the lower extremities in various projections, bilaterally. Additional duplex Doppler and color Doppler images were also obtained. INDICATION: Lower extremity pain and redness. There is no evidence of a right or left lower extremity DVT. Both lower extremity deep venous systems demonstrate normal compressibility with normal response to augmentation and Valsalva. No fluid collection or mass is seen. IMPRESSION: No evidence of right or left lower extremity DVT. Dictated by: Dictated on workstation # [id number]
[2018-02-21] MEDS ORDERED: METO-370 PO (08:53)
--- NOTE | 2018-02-21 08:57 | Cardiology Progress Note ---
Subjective Date Seen by Provider: Feb 21, 2018 Time Seen by Provider: 08:56 Subjective/Events-last exam Patient is sitting in bed, feeling better, denied any chest pain, no shortness of breath at this time. Review of Systems General: No Chills, No Night Sweats, No Fatigue, No Malaise, No Appetite, No Other HEENT: No Head Aches, No Visual Changes, No Eye Pain, No Ear Pain, No Dysphasia , No Sinus Congestion, No Post Nasal Drip, No Sore Throat, No Other Pulmonary: No Dyspnea, No Cough, No Pleuritic Chest Pain, No Other Focused Exam Lactate Level 02/20/18 18:40: Lactic Acid Level 0.61 Objective-Cardiology Exam Last Set of Vital Signs Vital Signs 02/21/18 02/21/18 06:04 08:00 Temp 98.8 Pulse 57 Resp 13 B/P (MAP) 151/71 (97) Pulse Ox 96 O2 Delivery Room Air O2 Flow Rate 0.00 Capillary Refill : Less Than 3 Seconds I&O Intake and Output 02/21/18 00:00 Intake Total 350 ml Balance 350 ml Intake Oral 200 ml IV Total 150 ml # Voids 1 Daily Weight Change No General: Alert, Oriented X3, Cooperative HEENT: Atraumatic, PERRLA Neck: Supple, No JVD, No Thyromegaly Lungs: Clear to Auscultation, Normal Air Movement Heart: Regular Rate, Normal S1, Normal S2, No Murmurs Abdomen: Normal Bowel Sounds, Soft, No Tenderness, No Hepatosplenomegaly, No Masses Extremities: No Clubbing, No Cyanosis, No Edema, Normal Pulses, No Tenderness/ Swelling Skin: No Rashes, No Breakdown, No Significant Lesion, Other (left ankle mildly erythematous) Neuro: Normal Gait, Normal Speech, Strength at 5/5 X4 Ext, Normal Tone, Sensation Intact Psych/Mental Status: Mental Status NL, Mood NL Results Lab Laboratory Tests 02/20/18 13:20 02/21/18 03:00 A/P-Cardiology Admission Diagnosis Shortness of breath Cellulitis Hypertension Hyperlipidemia Assessment/Plan Transient shortness of breath, fully resolved, associated with dizziness and nausea. No further episodes were reported, cardiac enzymes were negative. EKG has mild abnormality. I will review 2-D echocardiogram History of chest pain, had a cardiac catheterization in 2010 which was normal, had multiple stress test last was done by Dr. Mullen in 2016 reported as no ischemia. Erythema and tenderness, probable cellulitis at the left ankle, receiving ceftriaxone IV and reporting improvement Hypertension, mildly elevated, continue to monitor. Hyperlipidemia, monitor lipids History of paroxysmal atrial fibrillation, maintained on Eliquis. COPD/obstructive sleep apnea, noncompliant with her C Pap. Gastroesophageal reflux disease Depression Hypothyroidism OK for discharge from cardiology standpoint. Follow up with Dr. Mullen in 2-3 weeks. Clinical Quality Measures DVT/VTE Risk/Contraindication: Risk Factor Score Per Nursin RFS Level Per Nursing on Admit: 4+=Very High VIELKA MORENO MD Feb 21, 2018 08:57
[2018-02-21] MEDS ORDERED: ASPIRIN E.C. 81 MG (ECOTRIN) TAB PO SCH (09:00)
--- NOTE | 2018-02-21 09:03 | Diagnostic Imaging Report ---
PATIENT HISTORY: Redness and swelling at the medial left ankle. TECHNIQUE: 3 views of the left ankle COMPARISON: None FINDINGS: There is ossific density inferior to the medial malleolus. There are mild degenerative changes at the tibiotalar joint. A small left ankle joint effusion is present. There is a moderate sized plantar calcaneal enthesophyte. Alignment otherwise appears normal. There is moderate medial soft tissue edema. Soft tissue calcifications are seen at the lower leg, may represent vascular calcifications. IMPRESSION: 1. Ossific density inferior to the left medial malleolus, could represent an avulsion fracture, but is age indeterminate. Please correlate with history of recent trauma. 2. Moderate soft tissue edema medial to the left ankle. 3. Small left tibiotalar joint effusion. Dictated by: Dictated on workstation # [id number]
[2018-02-21 12:29] VITALS: BP 132/59
[2018-02-21] MEDS: NS IV 1000 ML 1,000 ML IV SCH (13:08)
--- NOTE | 2018-02-21 15:17 | History & Physical-Hospitalist ---
History of Present Illness HPI/Chief Complaint The patient is a 63-year-old white female who presented to the emergency room yesterday afternoon with complaints of breathlessness and loss of energy. She denied any chest pain. She reported that she had been experiencing some pain in her left foot. She had gone to help a friend at the friend's restaurant. While there she became lightheaded and dizzy. The friend insisted that she go to the emergency room and she did so. When she was evaluated there she was found to have a sinus rhythm and a negative troponin. She was admitted for observation. Troponin 2 was negative as well and she has been seen by Dr. Scott. He reports that she has had a recent stress test which was negative. She was admitted to the ICU and currently is in sinus rhythm and feels as well as ever. Source: patient Exam Limitations: no limitations Date Seen 02/21/18 Time Seen by a Provider: 15:12 Attending Physician Joelle Christian MD PCP Renny Georges MD Referring Physician Date of Admission Feb 20, 2018 at 15:45 Home Medications & Allergies Home Medications Reviewed patient Home Medication Reconciliation performed by pharmacy medication reconciliations soil field technician and/or nursing. Patients Allergies have been reviewed. Allergies Allergies Coded Allergies No Known Drug Allergies ([id number]/15) Past Hlopwja-Admfjv-Kbqbst Hx Past Med/Social Hx: Reviewed Nursing Past Med/Soc Hx Patient Social History Marrital Status: Alcohol Use: Denies Use Recreational Drug Use: No Smoking Status: Never a Smoker 2nd Hand Smoke Exposure: No Physical Abuse Screen: No Sexual Abuse: No Recent Foreign Travel: No Contact w/other who traveled: No Recent Hopitalizations: No Recent Infectious Disease Expo: No Immunizations Up To Date Tetanus Booster (TDap): Unknown Pediatric: No Date of Pneumonia Vaccine: Apr 26, 2012 Date of Influenza Vaccine: Feb 24, 2015 Seasonal Allergies Seasonal Allergies: No Past Medical History Surgeries: Appendectomy, Cardiac, Ear Surgery, Hysterectomy, Orthopedic, Tubal Ligation, Vascular Surgery Currently Using CPAP: No Currently Using BIPAP: No Cardiac: Atrial Fibrillation, Coronary Artery Disease, Heart Attack, High Cholesterol, Hypertension, Irregular Heartbeat, Peripheral Vascular Neurological: Headaches /Migraines 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: No Sexually Transmitted Disease: No HIV/AIDS: No Female 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 Hysterectomy, Menopausal Musculoskeletal: Arthritis, Chronic Back Pain, Fractures Endocrine: Hypothyroidsim Loss of Vision: Denies Hearing Impairment: Denies Psychosocial: Anxiety, Bipolar, Depression History of Blood Disorders: No Adverse Reaction to Blood Ceron: No Family History Cancer 03 MOTHER, Onset:60 years & older son, Onset:10's - 15 Dementia 03 MOTHER, Onset:60 years & older Family history: Alzheimer's disease 03 MOTHER, Onset:60 years & older Family history: Hypertension 09 BROTHER, Onset:30's - 40 Family history: Thyroid disorder daughter, Onset:20's - 25 History of - respiratory disease 09 BROTHER, Onset:[place] No Pertinent Family Hx Review of Systems Constitutional: see HPI EENTM: no symptoms reported Respiratory: short of breath Cardiovascular: palpitations Gastrointestinal: no symptoms reported Genitourinary: no symptoms reported Musculoskeletal: no symptoms reported Skin: no symptoms reported Psychiatric/Neurological: No Symptoms Reported Physical Exam Physical Exam Vital Signs Vital Signs - First Documented 02/20/18 13:10 Temp 98.1 Pulse 77 Resp 18 B/P (MAP) 131/88 (102) Pulse Ox 98 O2 Delivery Nasal Cannula O2 Flow Rate 2.00 Capillary Refill : Less Than 3 Seconds Height, Weight, BMI Height: 5'10.00" Weight: 282lbs. 0.0oz. [id number]; 41.6 BMI Method:Stated General Appearance: No Apparent Distress, WD/WN Eyes: Bilateral Eye Normal Inspection HEENT: Normal ENT Inspection Neck: Normal Inspection Respiratory: Chest Non Tender, Lungs Clear, Normal Breath Sounds, No Accessory Muscle Use, No Respiratory Distress Cardiovascular: Regular Rate, Rhythm, No Edema, No Gallop, No JVD, No Murmur, Normal Peripheral Pulses Gastrointestinal: Normal Bowel Sounds, No Organomegaly, No Pulsatile Mass, Non Tender, Soft Back: Normal Inspection, No CVA Tenderness, No Vertebral Tenderness Extremity: Normal Capillary Refill, Normal Inspection, Normal Range of Motion, Non Tender, No Calf Tenderness, No Pedal Edema Neurologic/Psychiatric: Alert, Oriented x3, No Motor/Sensory Deficits, Normal Mood/Affect Skin: Normal Color, Warm/Dry Lymphatic: No Adenopathy Results Results/Procedures Labs Laboratory Tests 02/20/18 13:20 02/21/18 03:00 Patient resulted labs reviewed. Assessment/Plan Admission Diagnosis 1.transient dyspnea. 2.no evidence of myocardial dysfunction. 3.morbid obesity. Admission Status: Observation Clinical Quality Measures DVT/VTE Risk/Contraindication: Risk Factor Score Per Nursin RFS Level Per Nursing on Admit: 4+=Very High SANDRITA ALVARADO MD Feb 21, 2018 15:17
--- NOTE | 2018-02-21 15:27 | Discharge Instructions ---
Discharge Instructions Patient Instructions Patient Instructions: Resume medications as on your discharge sequence. Follow-up with Dr. Georges relative to the red spot on your ankle. [facility] to [facility]: Change in functional state Activity & Diet Discharge Diet: No Restrictions Activity as Tolerated: Yes SANDRITA ALVARADO MD Feb 21, 2018 15:27
[2018-02-21] MEDS ORDERED: MELATONIN 3 MG TABLET PO SCH (21:00)
== END 2018-02-21 15:27 | disposition home or self-care (01) ==
LOC: EDUNIT# 13:09 → ER 13:09 → UNDOADMOB 15:45 → ICU 15:45 → UNDOADMOB 17:13 → ICU 17:13 → UNDODISOB 02-21 15:54
PROVIDERS: ADMIT Family Medicine; ATTEND Family Medicine
DX: R06.09 Other forms of dyspnea (principal); E66.01 Morbid (severe) obesity due to excess calories; Z68.41 Body mass index [BMI] 40.0-44.9, adult; I48.91 Unspecified atrial fibrillation; J44.9 Chronic obstructive pulmonary disease, unspecified; G47.30 Sleep apnea, unspecified; I25.10 Atherosclerotic heart disease of native coronary artery without angina pectoris; E78.5 Hyperlipidemia, unspecified; I73.9 Peripheral vascular disease, unspecified; E03.9 Hypothyroidism, unspecified; M25.572 Pain in left ankle and joints of left foot; K21.9 Gastro-esophageal reflux disease without esophagitis; F32.9 Major depressive disorder, single episode, unspecified; R42 Dizziness and giddiness; R11.0 Nausea; R07.9 Chest pain, unspecified; I25.2 Old myocardial infarction; Z91.19 Patient's noncompliance with other medical treatment and regimen; Z79.01 Long term (current) use of anticoagulants; Z79.82 Long term (current) use of aspirin; Z79.899 Other long term (current) drug therapy
CPT/HCPCS: 36415; 36600; 71045; 71275; 73610; 80053; 80061; 82805; 83605; 83735; 83874; 83880; 84484; 85025; 85610; 85730; 87040; 93005; 93041; 93970; 94640; 94761; 96374

== ENCOUNTER 2018-02-23 15:01 | Emergency (ER) | payer MEDICARE, MEDICAID ==
[~2018-02-23] VITALS: Ht 177.8 cm; Wt 131.1 kg
[~2018-02-23 15:01] MED LIST changes: +HYDR-3812 PO; +METO-370 PO; +ONDA8TAB13 PO; +SULF-222 PO
--- OUTSIDE RECORDS SUMMARY | 2018-02-23 15:29 | XMS REPORT | Continuity of Care Document ---
Author Author [facility] Organization [facility] Address Unknown Phone Unavailable Allergies Active Description Code Type Severity Reaction Onset Reported/Identified Relationship to Patient Clinical Status Yes NKDA NKDA Mild N/ A 10/13/2008 Yes No Known Drug Allergies [id number] Drug Allergy Unknown N/A 04/02/2015 Medications There [...] INFARCT 09/29/2010 Ot 414.01 CORONARY ATHEROSCLEROSIS OF [place] CORON 09/29/2010 Ot 427.31 ATRIAL FIBRILLATION 09/29/2010 [...] 786.05 SHORTNESS OF BREATH 05/21/2013 JONNATHAN MALLOY B2B OUTSIDE SALES REPRESENTATIVE Ot V58.61 ANTICOAGULANTS,LT,CURRENT USE 05/21/2013 JONNATHAN MALLOY [...] LU, JAMES Rodríguez Ot 286.9 04/02/2015 ZARI UL, SAIDA Oliveira Ot 729.5 04/02/2015 ZARI LU, [...] PULMONARY DISEASE W 08/14/2015 BAIMA, ESTELA L DEEP [employer]YER ASSEMBLER Ot G47.30 SLEEP APNEA, UNSPECIFIED 08/14/2015 BAIMA, ESTELA L DEEP [employer]ER ASSEMBLER Ot I48.91 UNSPECIFIED ATRIAL FIBRILLATION 08/14/2015 BAIMA, ESTELA L DEEP FRYER ASSEMBLER Ot J44.9 CHRONIC OBSTRUCTIVE PULMONARY DISEASE, U 08/14/2015 BAIMA, ESTELA L DEEP [employer]ER ASSEMBLER Ot R06.00 DYSPNEA, UNSPECIFIED 08/14/2015 BAIMA, ESTELA L DEEP [employer]ER ASSEMBLER Ot R07.9 CHEST PAIN, UNSPECIFIED 08/14/2015 BAIMA, ESTELA L DEEP [employer]ER ASSEMBLER Ot Z79.01 [facility] (CURRENT) USE OF ANTICOAGULANT 09/03/2015 BAIMA, ESTELA L DEEP [employer]ER ASSEMBLER Ot G47.30 SLEEP APNEA, UNSPECIFIED 09/03/2015 BAIMA, ESTELA L DEEP [employer]ER ASSEMBLER Ot I48.91 UNSPECIFIED ATRIAL FIBRILLATION 09/03/2015 BAIMA, ESTELA L DEEP FRYER ASSEMBLER Ot J44.9 CHRONIC OBSTRUCTIVE PULMONARY DISEASE, U 09/03/2015 BAIMA, ESTELA L DEEP [employer]ER ASSEMBLER Ot R06.00 DYSPNEA, UNSPECIFIED 09/03/2015 BAIMA, ESTELA L DEEP [employer]ER ASSEMBLER Ot R07.9 CHEST PAIN, UNSPECIFIED 09/03/2015 BAIMA, ESTELA L DEEP [employer]ER ASSEMBLER Ot Z79.01 [facility] (CURRENT) USE OF ANTICOAGULANT 09/20/2015 MELLYMA ESTELA L DEEP FR[employer]ER ASSEMBLER Ot G47.30 SLEEP APNEA, UNSPECIFIED 09/20/2015 BAIMA ESTELA L DEEP FRYER ASSEMBLER Ot I48.91 UNSPECIFIED ATRIAL FIBRILLATION 09/20/2015 MELLYMALUIGIESTELA L DEEP FRYER ASSEMBLER Ot J44.9 CHRONIC OBSTRUCTIVE PULMONARY DISEASE, U 09/20/2015 MELLYLUIGI MARTINEZHER L DEEP FRYER ASSEMBLER Ot R06.00 DYSPNEA, UNSPECIFIED 09/20/2015 BAIMA, ESTELA L DEEP [employer]ER ASSEMBLER Ot R07.9 CHEST PAIN, UNSPECIFIED 09/20/2015 BAIMALUIGIESTELA L DEEP FRYER ASSEMBLER Ot Z79.01 [facility] (CURRENT) USE OF ANTICOAGULANT 02/25/2016 Ot 709.9 [...] ACUTE OR CH 02/25/2016 RITA ESTELA L DEEP [employer]ER ASSEMBLER Ot G47.30 SLEEP APNEA, UNSPECIFIED 02/25/2016 MELLYMA ESTELA L DEEP [employer]ER ASSEMBLER Ot I48.91 UNSPECIFIED ATRIAL FIBRILLATION 02/25/2016 MELLYJUAN ESTELA L DEEP FRYER ASSEMBLER Ot J44.9 CHRONIC OBSTRUCTIVE PULMONARY DISEASE, U 02/25/2016 MELLYMA ESTELA L DEEP FRYER ASSEMBLER Ot R06.00 DYSPNEA, UNSPECIFIED 02/25/2016 MELLYMA ESTELA L DEEP FRYER ASSEMBLER Ot R07.9 CHEST PAIN, UNSPECIFIED 02/25/2016 ESTELA SALINAS DEEP FRYER ASSEMBLER Ot Z79.01 [facility] (CURRENT) USE OF ANTICOAGULANT 02/26/2016 ZARI LU, [...] SPECIFIED ACUTE OR CH 03/03/2016 ESTELA SALINAS DEEP FRYER ASSEMBLER Ot G47.30 SLEEP APNEA, UNSPECIFIED 03/03/2016 ESTELA ASLINAS DEEP FRYER ASSEMBLER Ot I48.91 UNSPECIFIED ATRIAL FIBRILLATION 03/03/2016 ESTELA SALINAS DEEP FRYER ASSEMBLER Ot J44.9 CHRONIC OBSTRUCTIVE PULMONARY DISEASE, U 03/03/2016 ESTELA SALINAS DEEP FRYER ASSEMBLER Ot R06.00 DYSPNEA, UNSPECIFIED 03/03/2016 ESTELA SALINAS DEEP FRYER ASSEMBLER Ot R07.9 CHEST PAIN, UNSPECIFIED 03/03/2016 ESTELA SALINAS DEEP FRYER ASSEMBLER Ot Z79.01 [facility] (CURRENT) USE OF ANTICOAGULANT 03/03/2016 SAIDA HAMEED [...] UNSPECIFIED 05/13/2016 NICK DODEANNAA K Ot Z79.82 [facility] (CURRENT) USE OF ASPIRIN 05/13/2016 NICK DO CARISSA K Ot Z79.891 [facility] (CURRENT) USE OF OPIATE ANALGE 05/13/2016 NICK DO CARISSA K Ot Z79.899 OTHER [facility] (CURRENT) DRUG THERAPY 05/14/2016 NICK DODEANNAA K [...] 05/14/2016 NICK DO CARISSA K Ot Z79.82 [facility] (CURRENT) USE OF ASPIRIN 05/14/2016 NICK DO CARISSA K Ot Z79.891 [facility] (CURRENT) USE OF OPIATE ANALGE 05/14/2016 NICK DEANNA SALAZARA K Ot Z79.899 OTHER [facility] (CURRENT) DRUG THERAPY 08/25/2016 Ot 709.9 SKIN [...] SPECIFIED ACUTE OR CH 08/25/2016 MELLYMAESTELA L DEEP [employer]YER ASSEMBLER Ot G47.30 SLEEP APNEA, UNSPECIFIED 08/25/2016 BAIMA ESTELA L DEEP [employer]ER ASSEMBLER Ot I48.91 UNSPECIFIED ATRIAL FIBRILLATION 08/25/2016 ESTELA SALINAS L DEEP FRYER ASSEMBLER Ot J44.9 CHRONIC OBSTRUCTIVE PULMONARY DISEASE, U 08/25/2016 ESTELA SALINAS L DEEP FRYER ASSEMBLER Ot R06.00 DYSPNEA, UNSPECIFIED 08/25/2016 MELLYMAESTELA L DEEP FRYER ASSEMBLER Ot R07.9 CHEST PAIN, UNSPECIFIED 08/25/2016 ESTELA SALINAS L DEEP FRYER ASSEMBLER Ot Z79.01 [facility] (CURRENT) USE OF ANTICOAGULANT 08/25/2016 SAIDA HAMEED MD Ot R06.2 WHEEZING 08/25/2016 Ot V58.61 ANTICOAGULANTS,LT,CURRENT USE 08/25/2016 Ot V58.83 ENCOUNTER FOR THERAPEUTIC DRUG MONITORIN 08/25/2016 JAMES PHELAN MD Ot I10 ESSENTIAL (PRIMARY) HYPERTENSION 08/25/2016 JAMES PHELAN MD Ot I25.10 ATHSCL HEART DISEASE OF [place] CORONARY 08/25/2016 JAMES PHELAN MD Ot J44.9 CHRONIC OBSTRUCTIVE PULMONARY DISEASE, U 08/25/2016 JAMES PHELAN MD Ot M79.662 PAIN IN LEFT LOWER LEG 08/25/2016 JAMES PHELAN MD Ot R07.9 CHEST PAIN, UNSPECIFIED 08/25/2016 JAMES PHELAN MD Ot R42 DIZZINESS AND GIDDINESS 08/25/2016 JAMES PHELAN MD Ot Z79.899 OTHER [facility] (CURRENT) DRUG THERAPY 08/26/2016 JAMES PHELAN MD Ot I10 ESSENTIAL (PRIMARY) HYPERTENSION 08/26/2016 JAMES PHELAN MD Ot I25.10 ATHSCL HEART DISEASE OF [place] CORONARY 08/26/2016 JAMES PHELAN MD, Ot J44.9 CHRONIC OBSTRUCTIVE PULMONARY DISEASE, U 08/26/2016 JAMES PHELAN MD Ot M79.662 PAIN IN LEFT LOWER LEG 08/26/2016 JAMES PHELAN MD Ot R07.9 CHEST PAIN, UNSPECIFIED 08/26/2016 JAMES PHELAN MD, Ot R42 DIZZINESS AND GIDDINESS 08/26/2016 JAMES PHELAN MD, Ot Z79.899 OTHER [facility] (CURRENT) DRUG THERAPY 11/30/2016 HUGH CORDOVA MD [...] MD Ot I25.10 ATHSCL HEART DISEASE OF [place] CORONARY 11/30/2016 HUGH CORDOVA MD Ot I25.2 [...] UNSPECIFIED 11/30/2016 HUGH CORDOVA MD Ot Z79.01 [facility] (CURRENT) USE OF ANTICOAGULANT 11/30/2016 HUGH CORDOVA MD Ot Z79.82 [facility] (CURRENT) USE OF ASPIRIN 11/30/2016 HUGH CORDOVA [...] MD Ot I25.10 ATHSCL HEART DISEASE OF [place] CORONARY 11/30/2016 HUGH CORDOVA MD Ot I25.2 [...] UNSPECIFIED 11/30/2016 HUGH CORDOVA MD, Ot Z79.01 [facility] (CURRENT) USE OF ANTICOAGULANT 11/30/2016 HUGH CORDOVA MD, Ot Z79.82 [facility] (CURRENT) USE OF ASPIRIN 11/30/2016 HUGH CORDOVA [...] APRN Ot I25.10 ATHSCL HEART DISEASE OF [place] CORONARY 01/12/2017 JONNATHAN MALLOY APRN Ot I25.2 OLD MYOCARDIAL INFARCTION 01/12/2017 JONNATHAN MALLOY APRN Ot I48.91 UNSPECIFIED ATRIAL FIBRILLATION 01/12/2017 JONNATHAN MALLOY APRN Ot J45.909 UNSPECIFIED ASTHMA, UNCOMPLICATED 01/12/2017 JONNATHAN MALLOY APRN Ot K21.9 GASTRO-ESOPHAGEAL REFLUX DISEASE WITHOUT 01/12/2017 JONNATHAN MALLOY APRN Ot R06.00 DYSPNEA, UNSPECIFIED 01/12/2017 JONNATHAN MALLOY APRN Ot Z79.82 [facility] (CURRENT) USE OF ASPIRIN 01/12/2017 JONNATHAN MALLOY [...] APRN Ot I25.10 ATHSCL HEART DISEASE OF [place] CORONARY 01/14/2017 JONNATHAN MALLOY APRN Ot I25.2 OLD MYOCARDIAL INFARCTION 01/14/2017 JONNATHAN MALLOY APRN Ot I48.91 UNSPECIFIED ATRIAL FIBRILLATION 01/14/2017 JONNATHAN MALLOY APRN Ot J45.909 UNSPECIFIED ASTHMA, UNCOMPLICATED 01/14/2017 JONNATHAN MALLOY APRN Ot K21.9 GASTRO-ESOPHAGEAL REFLUX DISEASE WITHOUT 01/14/2017 JONNATHAN MALLOY APRN Ot R06.00 DYSPNEA, UNSPECIFIED 01/14/2017 JONNATHAN MALLOY APRN Ot Z79.82 [facility] (CURRENT) USE OF ASPIRIN 01/14/2017 JONNATHAN MALLOY [...] APRN Ot I25.10 ATHSCL HEART DISEASE OF [place] CORONARY 01/18/2017 JONNATHAN MALLOY APRN Ot I25.2 OLD MYOCARDIAL INFARCTION 01/18/2017 JONNATHAN MALLOY APRN Ot I48.91 UNSPECIFIED ATRIAL FIBRILLATION 01/18/2017 JONNATHAN MALLOY APRN Ot J45.909 UNSPECIFIED ASTHMA, UNCOMPLICATED 01/18/2017 JONNATHAN MALLOY APRN Ot K21.9 GASTRO-ESOPHAGEAL REFLUX DISEASE WITHOUT 01/18/2017 JONNATHAN MALLOY APRN Ot R06.00 DYSPNEA, UNSPECIFIED 01/18/2017 JONNATHAN MALLOY APRN Ot Z79.82 [facility] (CURRENT) USE OF ASPIRIN 01/18/2017 JONNATHAN MALLOY [...] K Ot I25.10 ATHSCL HEART DISEASE OF [place] CORONARY 03/28/2017 CARISSA ROMERO DO Ot I25.2 [...] KNEE 03/28/2017 CARISSA ROMERO DO Ot Z79.01 [facility] (CURRENT) USE OF ANTICOAGULANT 03/28/2017 CARISSA ROMERO DO Ot Z79.82 [facility] (CURRENT) USE OF ASPIRIN 03/28/2017 CARISSA ROMERO [...] DO Ot I25.10 ATHSCL HEART DISEASE OF [place] CORONARY 03/31/2017 CARISSA ROMERO DO Ot I25.2 [...] 03/31/2017 NICK SALAZAR CARISSA Roberto Ot Z79.01 [facility] (CURRENT) USE OF ANTICOAGULANT 03/31/2017 NICK SALAZAR CARISSA K Ot Z79.82 [facility] (CURRENT) USE OF ASPIRIN 03/31/2017 NICK SALAZAR [...] MD Ot I25.10 ATHSCL HEART DISEASE OF [place] CORONARY 06/08/2017 HUGH CORDOVA MD, Ot I25.2 OLD MYOCARDIAL INFARCTION 06/08/2017 HUGH CORDOVA MD, Ot I48.91 UNSPECIFIED ATRIAL FIBRILLATION 06/08/2017 HUGH CORDOVA MD, Ot I73.9 PERIPHERAL VASCULAR DISEASE, UNSPECIFIED 06/08/2017 HUGH CORDOVA MD, Ot J44.9 CHRONIC OBSTRUCTIVE PULMONARY DISEASE, U 06/08/2017 HUGH CORDOVA MD Ot R04.0 EPISTAXIS 06/08/2017 HUGH CORDOVA MD, Ot Z79.01 [facility] (CURRENT) USE OF ANTICOAGULANT 06/08/2017 HUGH CORDOVA MD, Ot Z79.82 [facility] (CURRENT) USE OF ASPIRIN 06/08/2017 HUGH CORDOVA [...] ARANA Ot I25.10 ATHSCL HEART DISEASE OF [place] CORONARY 06/09/2017 MOLLY ARANA Ot I25.2 OLD MYOCARDIAL INFARCTION 06/09/2017 MOLLY ARANA Ot I48.91 UNSPECIFIED ATRIAL FIBRILLATION 06/09/2017 MOLLY ARANA Ot I73.9 PERIPHERAL VASCULAR DISEASE, UNSPECIFIED 06/09/2017 MOLLY ARANA Ot J34.89 OTHER SPECIFIED DISORDERS OF NOSE AND NA 06/09/2017 MOLLY ARANA Ot J45.909 UNSPECIFIED ASTHMA, UNCOMPLICATED 06/09/2017 MOLLY ARANA Ot R04.0 EPISTAXIS 06/09/2017 MOLLY ARANA Ot Z79.01 [facility] (CURRENT) USE OF ANTICOAGULANT 06/09/2017 MOLLY ARANA Ot Z79.82 [facility] (CURRENT) USE OF ASPIRIN 06/09/2017 MOLLY ARANA [...] MD Ot I25.10 ATHSCL HEART DISEASE OF [place] CORONARY 06/10/2017 HUGH CORDOVA MD Ot I25.2 OLD MYOCARDIAL INFARCTION 06/10/2017 HUGH CORDOVA MD Ot I48.91 UNSPECIFIED ATRIAL FIBRILLATION 06/10/2017 HUGH CORDOVA MD Ot I73.9 PERIPHERAL VASCULAR DISEASE, UNSPECIFIED 06/10/2017 HUGH CORDOVA MD, Ot J44.9 CHRONIC OBSTRUCTIVE PULMONARY DISEASE, U 06/10/2017 HUGH CORDOVA MD Ot R04.0 EPISTAXIS 06/10/2017 HUGH CORDOVA MD, Ot Z79.01 [facility] (CURRENT) USE OF ANTICOAGULANT 06/10/2017 HUGH CORDOVA MD Ot Z79.82 [facility] (CURRENT) USE OF ASPIRIN 06/10/2017 HUGH CORDOVA [...] ARANA Ot I25.10 ATHSCL HEART DISEASE OF [place] CORONARY 06/11/2017 MOLLY ARANA Ot I25.2 OLD MYOCARDIAL INFARCTION 06/11/2017 MOLLY ARANA Ot I48.91 UNSPECIFIED ATRIAL FIBRILLATION 06/11/2017 MOLLY ARANA Ot I73.9 PERIPHERAL VASCULAR DISEASE, UNSPECIFIED 06/11/2017 MOLLY ARANA Ot J34.89 OTHER SPECIFIED DISORDERS OF NOSE AND NA 06/11/2017 MOLLY ARANA Ot J45.909 UNSPECIFIED ASTHMA, UNCOMPLICATED 06/11/2017 MOLLY ARANA Ot R04.0 EPISTAXIS 06/11/2017 MOLLY ARANA Ot Z79.01 [facility] (CURRENT) USE OF ANTICOAGULANT 06/11/2017 MOLLY ARANA Ot Z79.82 [facility] (CURRENT) USE OF ASPIRIN 06/11/2017 MOLLY ARANA [...] 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 07/18/2017 CAIRSSA ROMERO DO Ot E03.9 HYPOTHYROIDISM, UNSPECIFIED 07/18/2017 [...] K Ot I25.10 ATHSCL HEART DISEASE OF [place] CORONARY 07/18/2017 CARISSA ROMERO DO Ot I25.2 [...] KNEE 07/18/2017 CARISSA ROMERO DO Ot Z79.01 [facility] (CURRENT) USE OF ANTICOAGULANT 07/18/2017 CARISSA ROMERO DO Ot Z79.82 [facility] (CURRENT) USE OF ASPIRIN 07/18/2017 CARISSA ROMERO [...] SPECIFIED ACUTE OR CH 02/15/2018 ESTELA SALINAS DEEP FRYER ASSEMBLER Ot G47.30 SLEEP APNEA, UNSPECIFIED 02/15/2018 ESTELA SALINAS L DEEP [employer]ER ASSEMBLER Ot I48.91 UNSPECIFIED ATRIAL FIBRILLATION 02/15/2018 ESTELA SALINAS DEEP FRYER ASSEMBLER Ot J44.9 CHRONIC OBSTRUCTIVE PULMONARY DISEASE, U 02/15/2018 ESTELA SALINAS L DEEP FRYER ASSEMBLER Ot R06.00 DYSPNEA, UNSPECIFIED 02/15/2018 ESTELA SALINAS L DEEP [employer]ER ASSEMBLER Ot R07.9 CHEST PAIN, UNSPECIFIED 02/15/2018 ESTELA SALINAS L DEEP FRYER ASSEMBLER Ot Z79.01 [facility] (CURRENT) USE OF ANTICOAGULANT 02/15/2018 ZARI LU, SAIDA R Ot R06.2 WHEEZING 02/15/2018 SCARLET GARRETT APRN Ot M51.36 OTHER INTERVERTEBRAL DISC DEGENERATION, 02/15/2018 SCARLET GARRETT APRN Ot 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 02/17/2018 JONNATHAN MALLOY APRN Ot E03.9 HYPOTHYROIDISM, UNSPECIFIED 02/17/2018 JONNATHAN MALLOY APRN Ot E78.00 PURE HYPERCHOLESTEROLEMIA, UNSPECIFIED 02/17/2018 JONNATHAN MALLOY APRN Ot F31.9 BIPOLAR DISORDER, UNSPECIFIED 02/17/2018 JONNATHAN MALLOY APRN Ot F41.9 ANXIETY DISORDER, UNSPECIFIED 02/17/2018 JONNATHAN MALLOY APRN Ot G43.909 MIGRAINE, UNSP, NOT INTRACTABLE, WITHOUT 02/17/2018 JONNATHAN MALLOY APRN Ot I10 ESSENTIAL (PRIMARY) HYPERTENSION 02/17/2018 JONNATHAN MALLYO APRN Ot I25.10 ATHSCL HEART DISEASE OF [place] CORONARY 02/17/2018 JONNATHAN MALLOY APRN Ot I25.2 OLD MYOCARDIAL INFARCTION 02/17/2018 JONNATHAN MALLOY APRN Ot I48.91 UNSPECIFIED ATRIAL FIBRILLATION 02/17/2018 JONNATHAN MALLOY APRN Ot J44.9 CHRONIC OBSTRUCTIVE PULMONARY DISEASE, U 02/17/2018 JONNATHAN MALLOY APRN Ot K52.9 NONINFECTIVE GASTROENTERITIS AND COLITIS 02/17/2018 JONNATHAN MALLOY APRN Ot R11.0 NAUSEA 02/17/2018 JONNATHAN MALLOY APRN Ot Z79.82 [facility] (CURRENT) USE OF ASPIRIN 02/17/2018 JONNATHAN AMLLOY APRN Ot Z90.49 ACQUIRED ABSENCE OF OTHER SPECIFIED PART 02/17/2018 JONNATHAN MALLOY APRN Ot Z90.710 ACQUIRED ABSENCE OF BOTH CERVIX AND UTER 02/17/2018 JONNATHAN MALLOY APRN Ot Z98.51 TUBAL LIGATION STATUS Procedures There [...] culture - 08/25/16 16:00 Bacterial urine culture [id number] NRG COLONY COUNT 10,000/ML - 100,000/ML NRG [...] 02/20/18 13:20 BNP level 140.0 pg/mL <100.0 Serum or plasma troponin i.cardiac measurement (mass/volume) - 02/20/18 16:08 Serum or plasma troponin i.cardiac measurement (mass/volume) < ng/ mL <0.30 Blood lactic acid measurement (moles/volume) - 02/20/18 18:40 Blood lactic acid measurement (moles/volume) 0.61 mmol/L 0.50-2.00 Bacterial blood culture - 02/20/18 18:40 Bacterial blood culture NG NRG Serum or plasma troponin i.cardiac measurement (mass/volume) - 02/20/18 23:04 Serum or plasma troponin i.cardiac measurement (mass/volume) < ng/ mL <0.30 Lipid 1996 panel - 02/21/18 03:00 Serum or plasma triglyceride measurement (mass/volume) 75 mg/dL <150 Serum or plasma cholesterol measurement (mass/volume) 115 mg/dL < 200 Serum or plasma cholesterol in HDL measurement (mass/volume) 36 mg/ dL 40-60 Cholesterol in LDL [mass/volume] in serum or plasma by direct assay 68 mg/dL 1-129 Serum or plasma cholesterol in VLDL measurement (mass/volume) 15 mg/ dL 5-40 Comprehensive metabolic panel - 02/21/18 03:00 Serum or plasma sodium measurement (moles/volume) 139 mmol/L 135-145 Serum or plasma potassium measurement (moles/volume) 4.4 mmol/L 3.6-5.0 Serum or plasma chloride measurement (moles/volume) 105 mmol/L 98-107 Carbon dioxide 22 mmol/L 21-32 Serum or plasma anion gap determination (moles/volume) 12 mmol/L 5-14 Serum or plasma urea nitrogen measurement (mass/volume) 11 mg/dL 7-18 Serum or plasma creatinine measurement (mass/volume) 0.87 mg/dL 0.60-1.30 Serum or plasma urea nitrogen/creatinine mass ratio 13 NRG Serum or plasma creatinine measurement with calculation of estimated glomerular filtration rate > NRG Serum or plasma glucose measurement (mass/volume) 104 mg/dL 70-105 Serum or plasma calcium measurement (mass/volume) 9.1 mg/dL 8.5-10.1 Serum or plasma total bilirubin measurement (mass/volume) 0.4 mg/dL 0.1-1.0 Serum or plasma alkaline phosphatase measurement (enzymatic activity/volume) 76 U/L 40-136 Serum or plasma aspartate aminotransferase measurement (enzymatic activity/ volume) 29 U/L 5-34 Serum or plasma alanine aminotransferase measurement (enzymatic activity/volume ) 25 U/L 0-55 Serum or plasma protein measurement (mass/volume) 5.9 g/dL 6.4-8.2 Serum or plasma albumin measurement (mass/volume) 3.8 g/dL 3.2-4.5 CALCIUM CORRECTED 9.3 mg/dL 8.5-10.1 Arterial blood gas measurement - 02/21/18 08:00 Blood pCO2 43 mm[Hg] 35-45 Blood pO2 66 mm[Hg] 79-93 Arterial blood bicarbonate measurement (moles/volume) 26 mmol/L 23-27 Arterial blood base excess by calculation 1.8 mmol/L -2.5 -2.5 Arterial blood oxygen saturation measurement 95 % 94-100 * Inhaled oxygen flow rate ROOM AIR NRG Arterial blood pH measurement with patient temperature correction 7.40 7.37-7.43 Arterial blood carbon dioxide, total measurement (moles/volume) 27.5 mmol/L 21.0-31.0 Body site RT RAD NRG Assessment of wrist artery patency prior to arterial puncture YES- POS NRG Setting of ventilation mode NO NRG Measurement of body temperature 98.1 NRG Encounters ACCT No. Visit Date/Time Discharge Status Pt. Type Provider Facility Loc./Unit Complaint [id number] 02/17/2018 10:34:00 02/17/2018 23:59:59 CLS Outpatient SCARLET GARRETT APRN [facility] RAD PAIN AND SWELLING OF LEFT LOWER LEG [id number] 02/15/2018 09:44:00 02/15/2018 13:00:00 DIS Outpatient JONNATHAN MALLOY APRN [facility] ER STOMACH PAIN; CHEST PAIN [id number] 06/09/2017 15:00:00 06/09/2017 16:58:00 DIS Emergency MOLLY ARANA [facility] ER NEEDS ANTIBIOTIC HERE LAST NIGHT FOR NOSE BLEED [id number] 06/08/2017 21:55:00 06/08/2017 23:20:00 DIS Emergency HUGH CORDOVA MD [facility] ER NOSE BLEED FOR 45 MINUTES - BLOOD THINNERS [id number] 04/29/2017 15:16:00 04/29/2017 23:59:59 CLS Outpatient SCARLET GARRETT APRN [facility] RAD M554.42 [id number] 03/28/2017 15:34:00 03/28/2017 18:53:00 DIS Emergency NICK DO CARISSA Roberto [facility] ER L LEG SWELLING/PAIN [id number] 01/12/2017 15:46:00 01/12/2017 17:08:00 DIS Emergency JONNATHAN MALLOY APRN [facility] ER TROUBLE BREATHING; HEAVINESS IN CHEST [id number] 11/29/2016 23:07:00 11/30/2016 02:36:00 DIS Emergency TASHA LU, HUGH Ba [facility] ER D/N FEVER WEAK [id number] 08/25/2016 14:30:00 08/25/2016 18:32:00 DIS Emergency JAMES PHELAN MD [facility] ER DIZZINESS/NAUSEA/ SHAKEY LEFT CALF PAIN [id number] 05/12/2016 23:38:00 05/13/2016 01:24:00 DIS Emergency NICK DOCARISSA [facility] ER N/V/D [id number] 02/25/2016 14:56:00 02/25/2016 23:59:59 CLS Outpatient SAIDA HAMEED MD [facility] RAD WHEEZING [id number] 08/13/2015 08:10:00 08/13/2015 23:59:59 CLS Outpatient ESTELA SALINAS [facility] CARD CHEST PAIN, PALPITATIONS,AFIB [id number] 06/16/2015 12:33:00 06/16/2015 14:55:00 DIS Emergency SANDRITA ALVARADO MD [facility] ER SOB/COPD [id number] 04/05/2015 09:50:00 04/05/2015 12:07:00 DIS Emergency SANDRITA ALVARADO MD [facility] ER SOA [id number] 04/02/2015 12:02:00 04/04/2015 09:45:00 DIS Inpatient SAIDA HAMEED MD [facility] 4TH COPD,EXACERBATION [id number] 02/21/2015 15:46:00 02/21/2015 23:59:59 CLS Outpatient SAIDA HAMEED MD [facility] RAD BRONCHITIS [id number] 11/20/2014 23:05:00 11/22/2014 09:45:00 DIS Inpatient SAIDA HAMEED MD [facility] 4TH BLEACH FUMES EXPOSURE, COPD EXACERBATION [id number] 10/25/2014 14:21:00 10/25/2014 19:30:00 DIS Emergency JAMES PHELAN MD [facility] ER LEFT GROIN PAIN [id number] 10/13/2013 20:46:00 10/14/2013 00:44:00 DIS Emergency JULIANA HERNANDEZ DO [facility] ER L LEG PAIN; CHEST PAIN [id number] 09/25/2013 12:37:00 09/25/2013 23:59:59 CLS Outpatient TRACY JOSEPH DO [facility] RT COPD,AFIB [id number] 08/25/2013 00:35:00 08/25/2013 12:05:00 DIS Inpatient SAIDA HAMEED MD [facility] CSD CHEST PAIN, SUBTHERAPEUTIC INR [id number] 07/04/2013 11:07:00 07/04/2013 23:59:59 CLS Outpatient SAIDA HAMEED MD [facility] RAD SWELLING,PAIN [id number] 06/28/2013 16:29:00 06/28/2013 17:24:00 DIS Emergency NICKCARSISA Tenorio DO K [facility] ER VOMITING,COUGH, POST EXPOSURE TO CLOROX [id number] 05/21/2013 20:58:00 05/25/2013 10:45:00 DIS Inpatient SAIDA HAMEED MD [facility] 4TH COPD EXACERBATION; WEAKNESS [id number] 05/21/2013 13:28:00 05/21/2013 15:42:00 DIS Emergency JONNATHAN MALLOY APRN [facility] ER SOA CONGESTION R ARM PAIN [id number] 03/24/2013 17:10:00 03/25/2013 09:50:00 DIS Inpatient VIELKA MORENO MD [facility] ICU CHEST PAIN [id number] 03/01/2013 01:10:00 03/01/2013 14:29:00 DIS Inpatient ZARI LU, SAIDA Oliveira [facility] 4TH ACUTE EXACERBATION OF COPD [id number] 02/13/2013 12:59:00 02/13/2013 14:18:00 DIS Emergency JONNATHAN MALLOY B2B OUTSIDE SALES REPRESENTATIVE [facility] ER LEFT LEG/GROIN PAIN [id number] 12/27/2012 13:08:00 12/27/2012 15:00:00 DIS Emergency JONNATHAN MALLOY B2B OUTSIDE SALES REPRESENTATIVE [facility] ER RIGHT ARM NUMBNESS/LEFT THIGH KNOT [id number] 12/02/2012 08:45:00 12/02/2012 23:59:59 CLS Outpatient JAMES PHELAN MD [facility] LAB SUPRATHERAPEUTIC INR [id number] 11/30/2012 15:06:00 11/30/2012 18:11:00 DIS Emergency JAMES PHELAN MD [facility] ER SOA,HEADACHE, DIZZINESS [id number] 10/30/2012 11:45:00 10/30/2012 23:59:59 CLS Outpatient [id number] 08/20/2012 10:02:00 08/20/2012 23:59:59 CLS Outpatient [id number] 02/20/2018 15:45:00 ACT Inpatient EFRAIN PARKS MD [facility] ICU SOB [id number] 10/25/2014 14:22:00 Document Registration [id number] 10/25/2014 14:22:00 Document Registration [id number] 10/25/2014 14:21:00 Document Registration [id number] 10/25/2014 14:21:00 Document Registration [id number] 10/25/2014 14:21:00 Document Registration [id number] 10/25/2014 14:21:00 Document Registration [id number] 10/25/2014 14:21:00 Document Registration [id number] 10/25/2014 14:21:00 Document Registration [id number] 10/25/2014 14:21:00 Document Registration [id number] 07/01/2014 22:30:00 Document Registration [id number] 06/13/2012 19:15:00 Document Registration [id number] 02/23/2012 01:00:00 Document Registration [id number] 12/03/2011 00:00:00 Document Registration [id number] 11/12/2011 21:51:00 Document Registration [id number] 10/13/2011 08:28:00 Document Registration [id number] 09/03/2011 12:33:00 Document Registration [id number] 08/21/2011 20:45:00 Document Registration [id number] 03/24/2011 20:48:00 Document Registration [id number] 01/24/2011 21:19:00 Document Registration [id number] 09/28/2010 18:20:00 Document Registration [id number] 04/29/2010 21:21:00 Document Registration [id number] 02/10/2010 09:58:00 Document Registration [id number] 01/29/2010 14:43:00 Document Registration [id number] 11/25/2009 11:02:00 Document Registration [id number] 11/13/2009 23:33:00 Document Registration [id number] 10/28/2009 11:54:00 Document Registration [id number] 09/27/2009 10:28:00 Document Registration [id number] 09/20/2009 15:31:00 Document Registration [id number] 07/29/2009 13:39:00 Document Registration [id number] 07/29/2009 12:23:00 Document Registration [id number] 11/20/2014 19:15:56 ACT Document Registration [id number] 12/02/2017 15:15:00 12/02/2017 23:59:59 ELIE Godfrey [facility]
[2018-02-23] MEDS ORDERED: fentaNYL INJECTION 100 MCG/2 ML AMP IVP STA (15:33)
--- NOTE | 2018-02-23 15:49 | ED General ---
General Chief Complaint: Lower Extremity Stated Complaint: L LEG CELLULITIS Nursing Triage Note: Pt ambulated to [facility] 1. Pt c/o cellulitis and pain in L ankle. Pt states pt was admitted in observation on Wednesday for same complaint. Pt currently prescribed Bactrim and Falgyl for intestinal infection. Pt c/o condition worsening. Nursing Sepsis Screen: No Definite Risk Source of Information: Patient Exam Limitations: No Limitations History of Present Illness Date Seen by Provider: Feb 23, 2018 Time Seen by Provider: 15:27 Initial Comments Here with report of left lower leg pain and redness to the area above the medial malleolus. Has history of a small area of cellulitis there. She has been on Bactrim but the redness has worsened and increased. Reports no significant pain to the area. She only has one more antibiotic pill left and she was concerned about that. She called her doctor's office who instructed her to come to the emergency department for evaluation. Timing/Duration: 4-5 Days, Getting Worse Severity: Moderate Associated Systoms: No Chest Pain, No Cough, No Fever/Chills, No Nausea/ Vomiting, No Shortness of Air, No Weakness Allergies and Home Medications Allergies Coded Allergies: No Known Drug Allergies (Verified , 04/02/15) Home Medications Apixaban 5 Mg Tablet, 5 MG PO DAILY, (Reported) Aspirin 81 Mg Tablet.dr, 81 MG PO DAILY, (Reported) Cefdinir 300 Mg Capsule, 300 MG PO BID Prescribed by: JAMES PHELAN on 02/23/18 162 Citalopram Hydrobromide 40 Mg Tablet, 40 MG PO DAILY, (Reported) Furosemide 40 Mg Tablet, 40 MG PO DAILY, (Reported) Hydrocodone/Acetaminophen 1 Each Tablet, 1 TAB PO Q6H PRN for PAIN-MODERATE, ( Reported) Hydrocodone/Acetaminophen 1 Each Tablet, 1 EACH PO Q6H PRN for PAIN-MODERATE Prescribed by: JAMES PHELAN on 02/23/18 162 Levothyroxine Sodium 25 Mcg Tablet, 25 MCG PO DAILY, (Reported) Meclizine HCl 25 Mg Tablet, 25 MG PO TID PRN for DIZZINESS, (Reported) Metoprolol Succinate 50 Mg Tab.er.24h, 50 MG PO DAILY, (Reported) Metronidazole 500 Mg Tablet, 500 MG PO TID, (Reported) 7 DAY THERAPY FILLED 02-15-18 Multivit-Min/FA/Lycopene/Lut 1 Each Tablet, 1 TAB PO DAILY, (Reported) Ondansetron 8 Mg Tab.rapdis, 8 MG PO Q6H PRN for NAUSEA/VOMITING-1ST LINE, ( Reported) Potassium Chloride 20 Meq Tab.er.prt, 20 MEQ PO DAILY, (Reported) Simvastatin 20 Mg Tablet, 20 MG PO DAILY, (Reported) LAST FILLED #90 10-21-17 Sulfamethoxazole/Trimethoprim 1 Each Tablet, 1 TAB PO BID, (Reported) 7 DAY THERAPY FILLED 02-15-18 Patient Home Medication List Home Medication List Reviewed: Yes Review of Systems Review of Systems Constitutional: see HPI; No chills, No fever EENTM: no symptoms reported Respiratory: cough (chronic), short of breath ( chronic but better than before) Cardiovascular: no symptoms reported Gastrointestinal: No abdominal pain, No nausea, No vomiting Genitourinary: no symptoms reported Musculoskeletal: see HPI; No joint pain; muscle pain Skin: change in color, lesions Psychiatric/Neurological: Denies Headache, Denies Weakness All Other Systems Reviewed Negative Unless Noted: Yes Past Hyiaagm-Jnxlko-Hpthsz Hx Past Med/Social Hx: Reviewed Nursing Past Med/Soc Hx Patient Social History Alcohol Use: Denies Use Recreational Drug Use: No 2nd Hand Smoke Exposure: No Recent Foreign Travel: No Contact w/Someone Who Travel: No Recent Infectious Disease Expo: No Recent Hopitalizations: No Immunizations Up To Date Tetanus Booster (TDap): Unknown PED Vaccines UTD: No Date of Pneumonia Vaccine: Apr 26, 2012 Date of Influenza Vaccine: Feb 24, 2015 Seasonal Allergies Seasonal Allergies: No Past Medical History Surgeries: Yes (BILATERAL LEG VEIN STRIPPING ; MULTIPLE CARDIAC CATHS; LEFT WRIST REPAIR) Appendectomy, Cardiac, Ear Surgery, Hysterectomy, Orthopedic, Tubal Ligation, Vascular Surgery Respiratory: Yes Asthma, Pneumonia, Chronic Bronchitis, Sleep Apnea, COPD Currently Using CPAP: No Currently Using BIPAP: No Cardiac: Yes ([place] 2005; VARICOSE VEINS) Atrial Fibrillation, Coronary Artery Disease, Heart Attack, High Cholesterol, Hypertension, Irregular Heartbeat, Peripheral Vascular Neurological: Yes Headaches /Migraines 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 Disorders: No Female 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 History: Hysterectomy, Menopausal Sexually Transmitted Disease: No HIV/AIDS: No Genitourinary: No Gastrointestinal: No Musculoskeletal: Yes ("PLATE IN LEFT WRIST"--NARCOTIC DEPENDENT) Arthritis, Chronic Back Pain, Fractures Endocrine: Yes Hypothyroidsim Loss of Vision: Denies Hearing Impairment: Denies Cancer: No Psychosocial: Yes Anxiety, Bipolar, Depression Integumentary: No Blood Disorders: No Adverse Reaction/Blood Tranf: No Family Medical History Reviewed Nursing Family Hx Cancer 03 MOTHER, Onset:60 years & older son, Onset:10's - 15 Dementia 03 MOTHER, Onset:60 years & older Family history: Alzheimer's disease 03 MOTHER, Onset:60 years & older Family history: Hypertension 09 BROTHER, Onset:30's - 40 Family history: Thyroid disorder daughter, Onset:20's - 25 History of - respiratory disease 09 BROTHER, Onset:[place] No Pertinent Family Hx Physical Exam-Suspected Sepsis Physical Exam Vital Signs Vital Signs - First Documented 02/23/18 15:08 Temp 97.7 Pulse 88 Resp 22 B/P (MAP) 138/72 (94) Pulse Ox 96 O2 Delivery Room Air Capillary Refill : Less Than 3 Seconds Blood Pressure Mean: 94 Height, Weight, BMI Height: 5'10.00" Weight: 289lbs. 0.0oz. [id number]; 41.6 BMI Method:Stated General Appearance: No Apparent Distress, WD/WN HEENT: PERRL/EOMI, Pharynx Normal Neck: Non Tender, Supple Respiratory: Lungs Clear, Normal Breath Sounds Cardiovascular: Regular Rate, Rhythm, No Murmur Gastrointestinal: Non Tender, Soft Back: Normal Inspection, No CVA Tenderness, No Vertebral Tenderness Extremity: Normal Capillary Refill, Normal Range of Motion, Other (tender and erythematous to the inner aspect of the left lower leg above the ankle. Erythematous proximally 6 x 6 cm and bright red.) Neurologic/Psychiatric: Alert, Oriented x3 Skin: normal color, warm/dry Focused Exam Lactate Level 02/23/18 15:40: Lactic Acid Level 1.46 Lactic Acid Level Laboratory Tests Test 02/23/18 15:40 Lactic Acid Level 1.46 MMOL/L (0.50-2.00) Progress/Results/Core Measures Suspected Sepsis Recent Fever Within 48 Hours: No Infection Criteria Present: Suspected New Infection New/Unexplained Altered Menta: No Sepsis Screen: No Definite Risk SIRS Temperature:97.7 Pulse: 88 Respiratory Rate: 22 Laboratory Tests 02/23/18 15:40: White Blood Count 6.0 Blood Pressure 138 /72 Mean: 94 10/31/18 15:40: Lactic Acid Level 1.46 Laboratory Tests 02/23/18 15:40: Creatinine 0.94, INR Comment 1.2, Platelet Count 209, Total Bilirubin 0.4 Results/Orders Lab Results Laboratory Tests Test 02/23/18 15:40 Range/Units White Blood Count 6.0 4.3-11.0 10^3/uL Red Blood Count 4.43 4.35-5.85 10^6/uL Hemoglobin 13.2 11.5-16.0 G/DL Hematocrit 41 35-52 % Mean Corpuscular Volume 93 80-99 FL Mean Corpuscular Hemoglobin 30 25-34 PG Mean Corpuscular Hemoglobin Concent 32 32-36 G/DL Red Cell Distribution Width 14.3 10.0-14.5 % Platelet Count 209 130-400 10^3/uL Mean Platelet Volume 9.6 7.4-10.4 FL Neutrophils (%) (Auto) 70 42-75 % Lymphocytes (%) (Auto) 19 12-44 % Monocytes (%) (Auto) 9 0-12 % Eosinophils (%) (Auto) 2 0-10 % Basophils (%) (Auto) 0 0-10 % Neutrophils # (Auto) 4.2 1.8-7.8 X 10^3 Lymphocytes # (Auto) 1.1 1.0-4.0 X 10^3 Monocytes # (Auto) 0.6 0.0-1.0 X 10^3 Eosinophils # (Auto) 0.1 0.0-0.3 10^3/uL Basophils # (Auto) 0.0 0.0-0.1 10^3/uL Prothrombin Time 14.7 12.2-14.7 SEC INR Comment 1.2 0.8-1.4 Activated Partial Thromboplast Time 31 24-35 SEC Sodium Level 139 135-145 MMOL/L Potassium Level 4.0 3.6-5.0 MMOL/L Chloride Level 104 98-107 MMOL/L Carbon Dioxide Level 26 21-32 MMOL/L Anion Gap 9 5-14 MMOL/L Blood Urea Nitrogen 8 7-18 MG/DL Creatinine 0.94 0.60-1.30 MG/DL Estimat Glomerular Filtration Rate 60 BUN/Creatinine Ratio 9 Glucose Level 109 H 70-105 MG/DL Lactic Acid Level 1.46 0.50-2.00 MMOL/L Calcium Level 9.4 8.5-10.1 MG/DL Corrected Calcium 9.2 8.5-10.1 MG/DL Total Bilirubin 0.4 0.1-1.0 MG/DL Aspartate Amino Transf (AST/SGOT) 23 5-34 U/L Alanine Aminotransferase (ALT/SGPT) 25 0-55 U/L Alkaline Phosphatase 80 40-136 U/L Total Protein 7.1 6.4-8.2 GM/DL Albumin 4.2 3.2-4.5 GM/DL My Orders Orders - JAMES PHELAN MD Cbc With Automated Diff (02/23/18 15:24) Comprehensive Metabolic Panel (02/23/18 15:24) Blood Culture (02/23/18 15:24) Sputum Culture (02/23/18:24) Protime With Inr (02/23/18:24) Partial Thromboplastin Time (02/23/18 15:24) Saline Lock/Iv-Start (02/23/18 15:24) Vital Signs Adult Sepsis Patie Q15M (02/23/18 15:24) O2 (02/23/18 15:24) Remove Rings In Anticipation O (02/23/18 15:24) Lactic Acid Analyzer (02/23/18 15:24) Fentanyl Injection (Sublimaze Injection (02/23/18 15:33) Ceftriaxone For Iv Use (Rocephin For I (02/23/18 16:30) Vital Signs/I&O 02/23/18 15:08 Temp 97.7 Pulse 88 Resp 22 B/P (MAP) 138/72 (94) Pulse Ox 96 O2 Delivery Room Air Capillary Refill : Less Than 3 Seconds Blood Pressure Mean: 94 Progress Note : Progress Note Seen and evaluated. IV, labs, blood cultures and lactic acid ordered. Previous visit reviewed. 1620: Labs are still in good range in no indication of systemic infection. She states that she got better on Rocephin previously and the Bactrim has not seemed to help. Rocephin 1 g IV ordered down we will continue outpatient treatment with Omnicef twice a day for 10 more days given her current symptoms. Departure Impression Primary Impression: Cellulitis of left lower extremity without foot Disposition: HOME, SELF-CARE Condition: Stable Departure-Patient Inst. Decision time for Depature: 16:21 Referrals: SAIDA HAMEED MD (PCP/Family) Primary Care Physician Patient Instructions: Cellulitis (Skin Infection), Adult (DC) Add. Discharge Instructions: All discharge instructions reviewed with patient and/or family. Voiced understanding. Take medications as directed. Follow-up with your Dr. in a few days for recheck and further evaluation. Return for worsening, swelling, increasing redness, increasing pain or other concerns as needed. Scripts Cefdinir (Cefdinir) 300 Mg Capsule 300 MG PO BID, #18 CAP 0 Refills Prov: JAMES PHELAN MD 02/23/18 Hydrocodone/Acetaminophen (Hydrocodon-Acetaminophn 10-325) 1 Each Tablet 1 EACH PO Q6H PRN for PAIN-MODERATE MDD 5, #12 TAB 0 Refills Prov: JAMES PHELAN MD 02/23/18 Copy Copies To 1: SAIDA HAMEED MD, TIMOTHY D MD Feb 23, 2018 15:49
[2018-02-23 15:52] LABS: BASOPHILS % (AUTO) 0 % (0-10); EOSINOPHILS # (AUTO) 0.1 10^3/uL (0.0-0.3); EOSINOPHILS % (AUTO) 2 % (0-10); HEMATOCRIT 41 % (35-52); HEMOGLOBIN 13.2 G/DL (11.5-16.0); LYMPHOCYTES # (AUTO) 1.1 X 10^3 (1.0-4.0); LYMPHOCYTES % (AUTO) 19 % (12-44); MEAN CORPUSCULAR HEMOGLOBIN 30 PG (25-34); MEAN CORPUSCULAR HGB CONC 32 G/DL (32-36); MEAN CORPUSCULAR VOLUME 93 FL (80-99); MEAN PLATELET VOLUME 9.6 FL (7.4-10.4); MONOCYTES # (AUTO) 0.6 X 10^3 (0.0-1.0); MONOCYTES % (AUTO) 9 % (0-12); NEUTROPHILS # (AUTO) 4.2 X 10^3 (1.8-7.8); NEUTROPHILS % (AUTO) 70 % (42-75); PLATELET COUNT 209 10^3/uL (130-400); RED BLOOD COUNT 4.43 10^6/uL (4.35-5.85); RED CELL DISTRIBUTION WIDTH 14.3 % (10.0-14.5)
[2018-02-23 16:04] LABS: INR 1.2 (0.8-1.4); PROTHROMBIN TIME PATIENT 14.7 SEC (12.2-14.7)
[2018-02-23 16:12] LABS: ALBUMIN 4.2 GM/DL (3.2-4.5); BILIRUBIN,TOTAL 0.4 MG/DL (0.1-1.0); CALCIUM 9.4 MG/DL (8.5-10.1); CREATININE SERUM 0.94 MG/DL (0.60-1.30); TOTAL PROTEIN 7.1 GM/DL (6.4-8.2)
[2018-02-23] MEDS ORDERED: HYDR-3820 PO (16:26)
[2018-02-23] MEDS ORDERED: CEFD300C3 PO (16:26)
[2018-02-23] MEDS ORDERED: cefTRIAXone FOR IV USE 1,000 MG in NS (IVPB) 50 ML IV ONE (16:30)
[2018-02-23 17:19] VITALS: BP 119/68
== END 2018-02-23 17:19 | disposition home or self-care (01) ==
LOC: EDUNIT# 15:01 → ER 15:02
DX: L03.116 Cellulitis of left lower limb (principal); G47.30 Sleep apnea, unspecified; I25.2 Old myocardial infarction; I48.91 Unspecified atrial fibrillation; I73.9 Peripheral vascular disease, unspecified; I10 Essential (primary) hypertension; E78.00 Pure hypercholesterolemia, unspecified; G43.909 Migraine, unspecified, not intractable, without status migrainosus; E03.9 Hypothyroidism, unspecified; F41.9 Anxiety disorder, unspecified; F31.9 Bipolar disorder, unspecified; I25.10 Atherosclerotic heart disease of native coronary artery without angina pectoris; J44.9 Chronic obstructive pulmonary disease, unspecified; Z79.01 Long term (current) use of anticoagulants; Z79.82 Long term (current) use of aspirin; Z98.890 Other specified postprocedural states; Z90.89 Acquired absence of other organs; Z87.01 Personal history of pneumonia (recurrent); Z90.710 Acquired absence of both cervix and uterus; Z98.51 Tubal ligation status
CPT/HCPCS: 36415; 80053; 83605; 85025; 85610; 85730; 87040; 96365; 96375

== ENCOUNTER 2018-04-17 18:39 | Emergency (ER) | payer MEDICARE, MEDICAID ==
[~2018-04-17 18:39] MED LIST changes: +CEFD300C3 PO
--- OUTSIDE RECORDS SUMMARY | 2018-04-17 18:55 | XMS REPORT | Continuity of Care Document ---
Author Author [facility] Organization [facility] Address Unknown Phone Unavailable Allergies Active Description Code Type Severity Reaction Onset Reported/Identified Relationship to Patient Clinical Status Yes NKDA NKDA Mild N/ A 10/13/2008 Yes No Known Drug Allergies [id number] Drug Allergy Unknown N/A 04/02/2015 Medications There [...] INFARCT 09/29/2010 Ot 414.01 CORONARY ATHEROSCLEROSIS OF [place] CORON 09/29/2010 Ot 427.31 ATRIAL FIBRILLATION 09/29/2010 [...] 786.05 SHORTNESS OF BREATH 05/21/2013 JONNATHAN MALLOY TIME STAMP ASSEMBLER Ot V58.61 ANTICOAGULANTS,LT,CURRENT USE 05/21/2013 JONNATHAN MALLOY [...] TRACY M Ot 311 10/25/2014 JAKE SALAZAR TARCY Brenda Ot 427.31 10/25/2014 JAKE SALAZAR TRACY [...] Ot Z23 ENCOUNTER FOR IMMUNIZATION 04/04/2015 SAIDA HAEMED MD Ot Z68.41 BODY MASS INDEX (BMI) [...] PULMONARY DISEASE W 08/14/2015 BAIMA, ESTELA L CATH LAB RADIOLOGY TECHNICIAN Ot G47.30 SLEEP APNEA, UNSPECIFIED 08/14/2015 BAIMA, ESTELA L CATH LAB RADIOLOGY TECHNICIAN Ot I48.91 UNSPECIFIED ATRIAL FIBRILLATION 08/14/2015 BAIMA, ESTELA L CATH LAB RADIOLOGY TECHNICIAN Ot J44.9 CHRONIC OBSTRUCTIVE PULMONARY DISEASE, U 08/14/2015 BAIMA, ESTELA L CATH LAB RADIOLOGY TECHNICIAN Ot R06.00 DYSPNEA, UNSPECIFIED 08/14/2015 BAIMA, ESTELA L CATH LAB RADIOLOGY TECHNICIAN Ot R07.9 CHEST PAIN, UNSPECIFIED 08/14/2015 BAIMA, ESTELA L CATH LAB RADIOLOGY TECHNICIAN Ot Z79.01 BEST WORKER (CURRENT) USE OF ANTICOAGULANT 09/03/2015 BAIMA, ESTELA L CATH LAB RADIOLOGY TECHNICIAN Ot G47.30 SLEEP APNEA, UNSPECIFIED 09/03/2015 BAIMA, ESTELA L CATH LAB RADIOLOGY TECHNICIAN Ot I48.91 UNSPECIFIED ATRIAL FIBRILLATION 09/03/2015 BAIMA, ESTELA L CATH LAB RADIOLOGY TECHNICIAN Ot J44.9 CHRONIC OBSTRUCTIVE PULMONARY DISEASE, U 09/03/2015 BAIMA, ESTELA L CATH LAB RADIOLOGY TECHNICIAN Ot R06.00 DYSPNEA, UNSPECIFIED 09/03/2015 BAIMA, ESTELA L CATH LAB RADIOLOGY TECHNICIAN Ot R07.9 CHEST PAIN, UNSPECIFIED 09/03/2015 BAIMA, ESTELA L CATH LAB RADIOLOGY TECHNICIAN Ot Z79.01 BEST WORKER (CURRENT) USE OF ANTICOAGULANT 09/20/2015 MELLYMA ESTELA L CATH LAB RADIOLOGY TECHNICIAN Ot G47.30 SLEEP APNEA, UNSPECIFIED 09/20/2015 BAIMA ESTELA L CATH LAB RADIOLOGY TECHNICIAN Ot I48.91 UNSPECIFIED ATRIAL FIBRILLATION 09/20/2015 MELLYMALUIGIESTELA L CATH LAB RADIOLOGY TECHNICIAN Ot J44.9 CHRONIC OBSTRUCTIVE PULMONARY DISEASE, U 09/20/2015 MELLYLUIGI MARTINEZHER L CATH LAB RADIOLOGY TECHNICIAN Ot R06.00 DYSPNEA, UNSPECIFIED 09/20/2015 BAIMA, ESTELA L CATH LAB RADIOLOGY TECHNICIAN Ot R07.9 CHEST PAIN, UNSPECIFIED 09/20/2015 BAIMALUIGIESTELA L CATH LAB RADIOLOGY TECHNICIAN Ot Z79.01 LONGTERM (CURRENT) USE OF ANTICOAGULANT 02/25/2016 Ot 709.9 [...] ACUTE OR CH 02/25/2016 RITA ESTELA L CATH LAB RADIOLOGY TECHNICIAN Ot G47.30 SLEEP APNEA, UNSPECIFIED 02/25/2016 MELLYMA ESTELA L CATH LAB RADIOLOGY TECHNICIAN Ot I48.91 UNSPECIFIED ATRIAL FIBRILLATION 02/25/2016 MELLYJUAN ESTELA L CATH LAB RADIOLOGY TECHNICIAN Ot J44.9 CHRONIC OBSTRUCTIVE PULMONARY DISEASE, U 02/25/2016 MELLYMA ESTELA L CATH LAB RADIOLOGY TECHNICIAN Ot R06.00 DYSPNEA, UNSPECIFIED 02/25/2016 MELLYMA ESTELA L CATH LAB RADIOLOGY TECHNICIAN Ot R07.9 CHEST PAIN, UNSPECIFIED 02/25/2016 ESTELA SALINAS CATH LAB RADIOLOGY TECHNICIAN Ot Z79.01 BEST WORKER (CURRENT) USE OF ANTICOAGULANT 02/26/2016 ZARI LU, [...] SPECIFIED ACUTE OR CH 03/03/2016 ESTELA SALINAS CATH LAB RADIOLOGY TECHNICIAN Ot G47.30 SLEEP APNEA, UNSPECIFIED 03/03/2016 ESTELA SALINAS CATH LAB RADIOLOGY TECHNICIAN Ot I48.91 UNSPECIFIED ATRIAL FIBRILLATION 03/03/2016 ESTELA SALINAS CATH LAB RADIOLOGY TECHNICIAN Ot J44.9 CHRONIC OBSTRUCTIVE PULMONARY DISEASE, U 03/03/2016 ESTELA SALINAS CATH LAB RADIOLOGY TECHNICIAN Ot R06.00 DYSPNEA, UNSPECIFIED 03/03/2016 ESTELA SALINAS CATH LAB RADIOLOGY TECHNICIAN Ot R07.9 CHEST PAIN, UNSPECIFIED 03/03/2016 ESTELA SALINAS CATH LAB RADIOLOGY TECHNICIAN Ot Z79.01 LONGTERM (CURRENT) USE OF ANTICOAGULANT 03/03/2016 SAIDA HAMEED [...] UNSPECIFIED 05/13/2016 NICK DODEANNAA K Ot Z79.82 LONGTERM (CURRENT) USE OF ASPIRIN 05/13/2016 NICK DO CARISSA K Ot Z79.891 LONGTERM (CURRENT) USE OF OPIATE ANALGE 05/13/2016 NICK DO CARISSA K Ot Z79.899 OTHER LONGTERM (CURRENT) DRUG THERAPY 05/14/2016 NICK DODEANNAA K [...] 05/14/2016 NICK DO CARISSA K Ot Z79.82 BEST WORKER (CURRENT) USE OF ASPIRIN 05/14/2016 NICK DO CARISSA K Ot Z79.891 BEST WORKER (CURRENT) USE OF OPIATE ANALGE 05/14/2016 NICK DEANNA SALAZARA K Ot Z79.899 OTHER LONGTERM (CURRENT) DRUG THERAPY 08/25/2016 Ot 709.9 SKIN [...] SPECIFIED ACUTE OR CH 08/25/2016 MELLYMAESTELA L CATH LAB RADIOLOGY TECHNICIAN Ot G47.30 SLEEP APNEA, UNSPECIFIED 08/25/2016 BAIMA ESTELA L CATH LAB RADIOLOGY TECHNICIAN Ot I48.91 UNSPECIFIED ATRIAL FIBRILLATION 08/25/2016 ESTELA SALINAS L CATH LAB RADIOLOGY TECHNICIAN Ot J44.9 CHRONIC OBSTRUCTIVE PULMONARY DISEASE, U 08/25/2016 ESTELA SALINAS L CATH LAB RADIOLOGY TECHNICIAN Ot R06.00 DYSPNEA, UNSPECIFIED 08/25/2016 MELLYMAESTELA L CATH LAB RADIOLOGY TECHNICIAN Ot R07.9 CHEST PAIN, UNSPECIFIED 08/25/2016 ESTELA SALINAS L CATH LAB RADIOLOGY TECHNICIAN Ot Z79.01 LONGTERM (CURRENT) USE OF ANTICOAGULANT 08/25/2016 SAIDA HAMEED MD Ot R06.2 WHEEZING 08/25/2016 Ot V58.61 ANTICOAGULANTS,LT,CURRENT USE 08/25/2016 Ot V58.83 ENCOUNTER FOR THERAPEUTIC DRUG MONITORIN 08/25/2016 JAMES PHELAN MD Ot I10 ESSENTIAL (PRIMARY) HYPERTENSION 08/25/2016 JAMES PHELAN MD Ot I25.10 ATHSCL HEART DISEASE OF [place] CORONARY 08/25/2016 JAMES PHELAN MD Ot J44.9 CHRONIC OBSTRUCTIVE PULMONARY DISEASE, U 08/25/2016 JAMES PHELAN MD Ot M79.662 PAIN IN LEFT LOWER LEG 08/25/2016 JAMES PHELAN MD Ot R07.9 CHEST PAIN, UNSPECIFIED 08/25/2016 JAMES PHELAN MD Ot R42 DIZZINESS AND GIDDINESS 08/25/2016 JAMES PHELAN MD Ot Z79.899 OTHER LONGTERM (CURRENT) DRUG THERAPY 08/26/2016 JAMES PHELAN MD Ot I10 ESSENTIAL (PRIMARY) HYPERTENSION 08/26/2016 JAMES PHELAN MD Ot I25.10 ATHSCL HEART DISEASE OF [place] CORONARY 08/26/2016 JAMES PHELAN MD, Ot J44.9 CHRONIC OBSTRUCTIVE PULMONARY DISEASE, U 08/26/2016 JAMES PHELAN MD Ot M79.662 PAIN IN LEFT LOWER LEG 08/26/2016 JAMES PHELAN MD Ot R07.9 CHEST PAIN, UNSPECIFIED 08/26/2016 JAMES PHELAN MD, Ot R42 DIZZINESS AND GIDDINESS 08/26/2016 JAMES PHELAN MD, Ot Z79.899 OTHER BEST WORKER (CURRENT) DRUG THERAPY 11/30/2016 HUGH CORDOVA MD [...] MD Ot I25.10 ATHSCL HEART DISEASE OF [place] CORONARY 11/30/2016 HUGH CORDOVA MD Ot I25.2 [...] UNSPECIFIED 11/30/2016 HUGH CORDOVA MD Ot Z79.01 LONGTERM (CURRENT) USE OF ANTICOAGULANT 11/30/2016 HUGH CORDOVA MD Ot Z79.82 LONGTERM (CURRENT) USE OF ASPIRIN 11/30/2016 HUGH CORDOVA [...] MD Ot I25.10 ATHSCL HEART DISEASE OF [place] CORONARY 11/30/2016 HUGH CORDOVA MD Ot I25.2 [...] UNSPECIFIED 11/30/2016 HUGH CORDOVA MD, Ot Z79.01 LONGTERM (CURRENT) USE OF ANTICOAGULANT 11/30/2016 HUGH CORDOVA MD, Ot Z79.82 BEST WORKER (CURRENT) USE OF ASPIRIN 11/30/2016 HUGH CORDOVA [...] APRN Ot I25.10 ATHSCL HEART DISEASE OF [place] CORONARY 01/12/2017 JONNATHAN MALLOY APRN Ot I25.2 OLD MYOCARDIAL INFARCTION 01/12/2017 JONNATHAN MALLOY APRN Ot I48.91 UNSPECIFIED ATRIAL FIBRILLATION 01/12/2017 JONNATHAN MALLOY APRN Ot J45.909 UNSPECIFIED ASTHMA, UNCOMPLICATED 01/12/2017 JONNATHAN MALLOY APRN Ot K21.9 GASTRO-ESOPHAGEAL REFLUX DISEASE WITHOUT 01/12/2017 JONNATHAN MALLOY APRN Ot R06.00 DYSPNEA, UNSPECIFIED 01/12/2017 JONNATHAN MALLOY APRN Ot Z79.82 BEST WORKER (CURRENT) USE OF ASPIRIN 01/12/2017 JONNATHAN MALLOY [...] APRN Ot I25.10 ATHSCL HEART DISEASE OF [place] CORONARY 01/14/2017 JONNATHAN MALLOY APRN Ot I25.2 OLD MYOCARDIAL INFARCTION 01/14/2017 JONNATHAN MALLOY APRN Ot I48.91 UNSPECIFIED ATRIAL FIBRILLATION 01/14/2017 JONNATHAN MALLOY APRN Ot J45.909 UNSPECIFIED ASTHMA, UNCOMPLICATED 01/14/2017 JONNATHAN MALLOY APRN Ot K21.9 GASTRO-ESOPHAGEAL REFLUX DISEASE WITHOUT 01/14/2017 JONNATHAN MALLOY APRN Ot R06.00 DYSPNEA, UNSPECIFIED 01/14/2017 JONNATHAN MALLOY APRN Ot Z79.82 BEST WORKER (CURRENT) USE OF ASPIRIN 01/14/2017 JONNATHAN MALLOY [...] APRN Ot I25.10 ATHSCL HEART DISEASE OF [place] CORONARY 01/18/2017 JONNATHAN MALLOY APRN Ot I25.2 OLD MYOCARDIAL INFARCTION 01/18/2017 JONNATHAN MALLOY APRN Ot I48.91 UNSPECIFIED ATRIAL FIBRILLATION 01/18/2017 JONNATHAN MALLOY APRN Ot J45.909 UNSPECIFIED ASTHMA, UNCOMPLICATED 01/18/2017 JONNATHAN MALLOY APRN Ot K21.9 GASTRO-ESOPHAGEAL REFLUX DISEASE WITHOUT 01/18/2017 JONNATHAN MALLOY APRN Ot R06.00 DYSPNEA, UNSPECIFIED 01/18/2017 JONNATHAN MALLOY APRN Ot Z79.82 BEST WORKER (CURRENT) USE OF ASPIRIN 01/18/2017 JONNATHAN MALLOY [...] K Ot I25.10 ATHSCL HEART DISEASE OF [place] CORONARY 03/28/2017 CARISSA ROMERO DO Ot I25.2 [...] KNEE 03/28/2017 CARISSA ROMERO DO Ot Z79.01 LONGTERM (CURRENT) USE OF ANTICOAGULANT 03/28/2017 CARISSA ROMERO DO Ot Z79.82 LONGTERM (CURRENT) USE OF ASPIRIN 03/28/2017 CARISSA ROMERO [...] DO Ot I25.10 ATHSCL HEART DISEASE OF [place] CORONARY 03/31/2017 CARISSA ROMERO DO Ot I25.2 [...] 03/31/2017 NICK SALAZAR CARISSA Roberto Ot Z79.01 BEST WORKER (CURRENT) USE OF ANTICOAGULANT 03/31/2017 NICK SALAZAR CARISSA K Ot Z79.82 LONGTERM (CURRENT) USE OF ASPIRIN 03/31/2017 NICK SALAZAR [...] MD Ot I25.10 ATHSCL HEART DISEASE OF [place] CORONARY 06/08/2017 HUGH CORDOVA MD, Ot I25.2 OLD MYOCARDIAL INFARCTION 06/08/2017 HUGH CORDOVA MD, Ot I48.91 UNSPECIFIED ATRIAL FIBRILLATION 06/08/2017 HUGH CORDOVA MD, Ot I73.9 PERIPHERAL VASCULAR DISEASE, UNSPECIFIED 06/08/2017 HUGH CORDOVA MD, Ot J44.9 CHRONIC OBSTRUCTIVE PULMONARY DISEASE, U 06/08/2017 HUGH CORDOVA MD Ot R04.0 EPISTAXIS 06/08/2017 HUGH CORDOVA MD, Ot Z79.01 LONGTERM (CURRENT) USE OF ANTICOAGULANT 06/08/2017 HUGH CORDOVA MD, Ot Z79.82 LONGTERM (CURRENT) USE OF ASPIRIN 06/08/2017 HUGH CORDOVA [...] ARANA Ot I25.10 ATHSCL HEART DISEASE OF [place] CORONARY 06/09/2017 MOLLY ARANA Ot I25.2 OLD MYOCARDIAL INFARCTION 06/09/2017 MOLLY ARANA Ot I48.91 UNSPECIFIED ATRIAL FIBRILLATION 06/09/2017 MOLLY ARANA Ot I73.9 PERIPHERAL VASCULAR DISEASE, UNSPECIFIED 06/09/2017 MOLLY ARANA Ot J34.89 OTHER SPECIFIED DISORDERS OF NOSE AND NA 06/09/2017 MOLLY ARANA Ot J45.909 UNSPECIFIED ASTHMA, UNCOMPLICATED 06/09/2017 MOLLY ARANA Ot R04.0 EPISTAXIS 06/09/2017 MOLLY ARANA Ot Z79.01 BEST WORKER (CURRENT) USE OF ANTICOAGULANT 06/09/2017 MOLLY ARANA Ot Z79.82 LONGTERM (CURRENT) USE OF ASPIRIN 06/09/2017 MOLLY ARANA [...] MD Ot I25.10 ATHSCL HEART DISEASE OF [place] CORONARY 06/10/2017 HUGH CORDOVA MD Ot I25.2 OLD MYOCARDIAL INFARCTION 06/10/2017 HUGH CORDOVA MD Ot I48.91 UNSPECIFIED ATRIAL FIBRILLATION 06/10/2017 HUGH CORDOVA MD Ot I73.9 PERIPHERAL VASCULAR DISEASE, UNSPECIFIED 06/10/2017 HUGH CORDOVA MD, Ot J44.9 CHRONIC OBSTRUCTIVE PULMONARY DISEASE, U 06/10/2017 HUGH CORDOVA MD Ot R04.0 EPISTAXIS 06/10/2017 HUGH CORDOVA MD, Ot Z79.01 LONGTERM (CURRENT) USE OF ANTICOAGULANT 06/10/2017 HUGH CORDOVA MD Ot Z79.82 LONGTERM (CURRENT) USE OF ASPIRIN 06/10/2017 HUGH CORDOVA [...] ARANA Ot I25.10 ATHSCL HEART DISEASE OF [place] CORONARY 06/11/2017 MOLLY ARANA Ot I25.2 OLD MYOCARDIAL INFARCTION 06/11/2017 MOLLY ARANA Ot I48.91 UNSPECIFIED ATRIAL FIBRILLATION 06/11/2017 MOLLY ARANA Ot I73.9 PERIPHERAL VASCULAR DISEASE, UNSPECIFIED 06/11/2017 MOLLY ARANA Ot J34.89 OTHER SPECIFIED DISORDERS OF NOSE AND NA 06/11/2017 MOLLY ARANA Ot J45.909 UNSPECIFIED ASTHMA, UNCOMPLICATED 06/11/2017 MOLLY ARANA Ot R04.0 EPISTAXIS 06/11/2017 MOLLY ARANA Ot Z79.01 BEST WORKER (CURRENT) USE OF ANTICOAGULANT 06/11/2017 MOLLY ARANA Ot Z79.82 BEST WORKER (CURRENT) USE OF ASPIRIN 06/11/2017 MOLLY ARANA [...] K Ot I25.10 ATHSCL HEART DISEASE OF [place] CORONARY 07/18/2017 CARISSA ROMERO DO Ot I25.2 [...] KNEE 07/18/2017 CARISSA ROMERO DO Ot Z79.01 BEST WORKER (CURRENT) USE OF ANTICOAGULANT 07/18/2017 CARISSA ROMERO DO Ot Z79.82 LONGTERM (CURRENT) USE OF ASPIRIN 07/18/2017 CARISSA ROMERO [...] JOSEPH DO Ot 427.31 ATRIAL FIBRILLATION 02/15/2018 RTACY JOSEPH DO Ot 496 CHR AIRWAY OBSTRUCT NEC 02/15/2018 ZARI LU, SAIDA R Ot J40 BRONCHITIS, NOT SPECIFIED ACUTE OR CH 02/15/2018 ESTELA SALINAS CATH LAB RADIOLOGY TECHNICIAN Ot G47.30 SLEEP APNEA, UNSPECIFIED 02/15/2018 ESTELA SALINAS L CATH LAB RADIOLOGY TECHNICIAN Ot I48.91 UNSPECIFIED ATRIAL FIBRILLATION 02/15/2018 ESTELA SALINAS CATH LAB RADIOLOGY TECHNICIAN Ot J44.9 CHRONIC OBSTRUCTIVE PULMONARY DISEASE, U 02/15/2018 ESTELA SALINAS L CATH LAB RADIOLOGY TECHNICIAN Ot R06.00 DYSPNEA, UNSPECIFIED 02/15/2018 ESTELA SALINAS L CATH LAB RADIOLOGY TECHNICIAN Ot R07.9 CHEST PAIN, UNSPECIFIED 02/15/2018 ESTELA SALINAS L CATH LAB RADIOLOGY TECHNICIAN Ot Z79.01 BEST WORKER (CURRENT) USE OF ANTICOAGULANT 02/15/2018 ZARI LU, SAIDA R Ot R06.2 WHEEZING 02/15/2018 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 Ot M51.36 OTHER INTERVERTEBRAL DISC DEGENERATION, 02/15/2018 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 Ot 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 02/15/2018 JONNATHAN MALLOY APRN Ot E03.9 HYPOTHYROIDISM, UNSPECIFIED 02/15/2018 JONNATHAN MALLOY APRN Ot E78.00 PURE HYPERCHOLESTEROLEMIA, UNSPECIFIED 02/15/2018 JONNATHAN MALLOY APRN Ot F31.9 BIPOLAR DISORDER, UNSPECIFIED 02/15/2018 JONNATHAN MALLOY APRN Ot F41.9 ANXIETY DISORDER, UNSPECIFIED 02/15/2018 JONNATHAN MALLOY APRN Ot G43.909 MIGRAINE, UNSP, NOT INTRACTABLE, WITHOUT 02/15/2018 JONNATHAN MALLOY APRN Ot I10 ESSENTIAL (PRIMARY) HYPERTENSION 02/15/2018 JONNATHAN MALLOY APRN Ot I25.10 ATHSCL HEART DISEASE OF [place] CORONARY 02/15/2018 JONNATHAN MALLOY APRN Ot I25.2 OLD MYOCARDIAL INFARCTION 02/15/2018 JONNATHAN MALLOY APRN Ot I48.91 UNSPECIFIED ATRIAL FIBRILLATION 02/15/2018 JONNATHAN MALLOY APRN Ot J44.9 CHRONIC OBSTRUCTIVE PULMONARY DISEASE, U 02/15/2018 JONNATHAN MALLOY APRN Ot K52.9 NONINFECTIVE GASTROENTERITIS AND COLITIS 02/15/2018 JONNATHAN MALLOY APRN Ot R11.0 NAUSEA 02/15/2018 JONNATHAN MALLOY APRN Ot Z79.82 LONGTERM (CURRENT) USE OF ASPIRIN 02/15/2018 JONNATHAN MALLOY APRN Ot Z90.49 ACQUIRED ABSENCE OF OTHER SPECIFIED PART 02/15/2018 JONNATHAN MALLOY APRN Ot Z90.710 ACQUIRED ABSENCE OF BOTH CERVIX AND UTER 02/15/2018 JONNATHAN MALLOY APRN Ot Z98.51 TUBAL LIGATION STATUS 02/17/2018 JONNATHAN MALLOY APRN Ot E03.9 HYPOTHYROIDISM, UNSPECIFIED 02/17/2018 JONNATHAN MALLOY APRN Ot E78.00 PURE HYPERCHOLESTEROLEMIA, UNSPECIFIED 02/17/2018 JONNATHAN MALLOY APRN Ot F31.9 BIPOLAR DISORDER, UNSPECIFIED 02/17/2018 JONNATHAN MALLOY APRN Ot F41.9 ANXIETY DISORDER, UNSPECIFIED 02/17/2018 JONNATHAN MALLOY APRN Ot G43.909 MIGRAINE, UNSP, NOT INTRACTABLE, WITHOUT 02/17/2018 JONNATHAN MALLOY APRN Ot I10 ESSENTIAL (PRIMARY) HYPERTENSION 02/17/2018 JONNATHAN MALLOY APRN Ot I25.10 ATHSCL HEART DISEASE OF [place] CORONARY 02/17/2018 JONNATHAN MALLOY APRN Ot I25.2 OLD MYOCARDIAL INFARCTION 02/17/2018 JONNATHAN MALLOY APRN Ot I48.91 UNSPECIFIED ATRIAL FIBRILLATION 02/17/2018 JONNATHAN MALLOY APRN Ot J44.9 CHRONIC OBSTRUCTIVE PULMONARY DISEASE, U 02/17/2018 JONNATHAN MALLOY APRN Ot K52.9 NONINFECTIVE GASTROENTERITIS AND COLITIS 02/17/2018 JONNATHAN MALLOY APRN Ot R11.0 NAUSEA 02/17/2018 JONNATHAN MALLOY APRN Ot Z79.82 LONGTERM (CURRENT) USE OF ASPIRIN 02/17/2018 JONNATHAN MALLOY APRN Ot Z90.49 ACQUIRED ABSENCE OF OTHER SPECIFIED PART 02/17/2018 JONNATHAN MALLOY APRN Ot Z90.710 ACQUIRED ABSENCE OF BOTH CERVIX AND UTER 02/17/2018 JONNATHAN MALLOY APRN Ot Z98.51 TUBAL LIGATION STATUS 02/21/2018 EFRAIN PARKS MD Ot E03.9 HYPOTHYROIDISM, UNSPECIFIED 02/21/2018 EFRAIN PARKS MD Ot E66.01 MORBID (SEVERE) OBESITY DUE TO EXCESS CA 02/21/2018 EFRAIN PARKS MD Ot E78.5 HYPERLIPIDEMIA, UNSPECIFIED 02/21/2018 EFRAIN PARKS MD Ot F32.9 MAJOR DEPRESSIVE DISORDER, SINGLE EPISOD 02/21/2018 EFRAIN PARKS MD Ot G47.30 SLEEP APNEA, UNSPECIFIED 02/21/2018 EFRAIN PARKS MD Ot I25.10 ATHSCL HEART DISEASE OF [place] CORONARY 02/21/2018 EFRAIN PARKS MD Ot I25.2 OLD MYOCARDIAL INFARCTION 02/21/2018 EFRAIN PARKS MD Ot I48.91 UNSPECIFIED ATRIAL FIBRILLATION 02/21/2018 EFRAIN PARKS MD Ot I73.9 PERIPHERAL VASCULAR DISEASE, UNSPECIFIED 02/21/2018 EFRAIN PARKS MD Ot J44.9 CHRONIC OBSTRUCTIVE PULMONARY DISEASE, U 02/21/2018 EFRAIN PARKS MD, Ot K21.9 GASTRO-ESOPHAGEAL REFLUX DISEASE WITHOUT 02/21/2018 EFRAIN PARKS MD, Ot M25.572 PAIN IN LEFT ANKLE AND JOINTS OF LEFT FO 02/21/2018 EFRAIN PARKS MD, Ot R06.09 OTHER FORMS OF DYSPNEA 02/21/2018 EFRAIN PARKS MD, Ot R07.9 CHEST PAIN, UNSPECIFIED 02/21/2018 EFRAIN PARKS MD, Ot R11.0 NAUSEA 02/21/2018 EFRAIN PARKS MD, Ot R42 DIZZINESS AND GIDDINESS 02/21/2018 EFRAIN PARKS MD, Ot Z68.41 BODY MASS INDEX (BMI) 40.0-44.9, ADULT 02/21/2018 EFRAIN PARKS MD, Ot Z79.01 BEST WORKER (CURRENT) USE OF ANTICOAGULANT 02/21/2018 EFRAIN PARKS MD, Ot Z79.82 LONGTERM (CURRENT) USE OF ASPIRIN 02/21/2018 EFRAIN PARKS MD, Ot Z79.899 OTHER LONGTERM (CURRENT) DRUG THERAPY 02/21/2018 EFRAIN PARKS MD, Ot Z91.19 PATIENT'S NONCOMPLIANCE W [facility] 02/21/2018 EFRAIN PARKS MD, Ot E03.9 HYPOTHYROIDISM, UNSPECIFIED 02/21/2018 EFRAIN PARKS MD Ot E66.01 MORBID (SEVERE) OBESITY DUE TO EXCESS CA 02/21/2018 EFRAIN PARKS MD, Ot E78.5 HYPERLIPIDEMIA, UNSPECIFIED 02/21/2018 EFRAIN PARKS MD, Ot F32.9 MAJOR DEPRESSIVE DISORDER, SINGLE EPISOD 02/21/2018 EFRAIN PARKS MD, Ot G47.30 SLEEP APNEA, UNSPECIFIED 02/21/2018 EFRAIN PARKS MD, Ot I25.10 ATHSCL HEART DISEASE OF [place] CORONARY 02/21/2018 EFRAIN PARKS MD, Ot I25.2 OLD MYOCARDIAL INFARCTION 02/21/2018 EFRAIN PARKS MD Ot I48.91 UNSPECIFIED ATRIAL FIBRILLATION 02/21/2018 EFRAIN PARKS MD, Ot I73.9 PERIPHERAL VASCULAR DISEASE, UNSPECIFIED 02/21/2018 EFRAIN PARKS MD, Ot J44.9 CHRONIC OBSTRUCTIVE PULMONARY DISEASE, U 02/21/2018 EFRAIN PARKS MD, Ot K21.9 GASTRO-ESOPHAGEAL REFLUX DISEASE WITHOUT 02/21/2018 EFRAIN PARKS MD, Ot M25.572 PAIN IN LEFT ANKLE AND JOINTS OF LEFT FO 02/21/2018 EFRAIN PARKS MD, Ot R06.09 OTHER FORMS OF DYSPNEA 02/21/2018 EFRAIN PARKS MD, Ot R07.9 CHEST PAIN, UNSPECIFIED 02/21/2018 EFRAIN PARKS MD, Ot R11.0 NAUSEA 02/21/2018 EFRAIN PARKS MD, Ot R42 DIZZINESS AND GIDDINESS 02/21/2018 EFRAIN PARKS MD, Ot Z68.41 BODY MASS INDEX (BMI) 40.0-44.9, ADULT 02/21/2018 EFRAIN PARKS MD, Ot Z79.01 BEST WORKER (CURRENT) USE OF ANTICOAGULANT 02/21/2018 EFRAIN PARKS MD, Ot Z79.82 BEST WORKER (CURRENT) USE OF ASPIRIN 02/21/2018 EFRAIN PARKS MD, Ot Z79.899 OTHER BEST WORKER (CURRENT) DRUG THERAPY 02/21/2018 EFRAIN PARKS MD, Ot Z91.19 PATIENT'S NONCOMPLIANCE W [facility] 02/22/2018 SCARLET GARRETT APRN Ot L53.9 ERYTHEMATOUS CONDITION, UNSPECIFIED 02/22/2018 SCARLET GARRETT APRN Ot M79.89 OTHER SPECIFIED SOFT TISSUE DISORDERS 02/23/2018 JAMES PHELAN MD Ot E03.9 HYPOTHYROIDISM, UNSPECIFIED 02/23/2018 JAMES PHELAN MD Ot E78.00 PURE HYPERCHOLESTEROLEMIA, UNSPECIFIED 02/23/2018 JAMES PHELAN MD, Ot F31.9 BIPOLAR DISORDER, UNSPECIFIED 02/23/2018 JAMES PHELAN MD, Ot F41.9 ANXIETY DISORDER, UNSPECIFIED 02/23/2018 JAMES PHELAN MD Ot G43.909 MIGRAINE, UNSP, NOT INTRACTABLE, WITHOUT 02/23/2018 JAMES PHELAN MD Ot G47.30 SLEEP APNEA, UNSPECIFIED 02/23/2018 [place] MD, JAMES D Ot I10 ESSENTIAL (PRIMARY) HYPERTENSION 02/23/2018 JAMES PHELAN MD Ot I25.10 ATHSCL HEART DISEASE OF [place] CORONARY 02/23/2018 JAMES PHELAN MD, Ot I25.2 OLD MYOCARDIAL INFARCTION 02/23/2018 JAMES PHELAN MD Ot I48.91 UNSPECIFIED ATRIAL FIBRILLATION 02/23/2018 JAMES PHELAN MD Ot I73.9 PERIPHERAL VASCULAR DISEASE, UNSPECIFIED 02/23/2018 JAMES PHELAN MD, Ot J44.9 CHRONIC OBSTRUCTIVE PULMONARY DISEASE, U 02/23/2018 JAMES PHELAN MD Ot L03.116 CELLULITIS OF LEFT LOWER LIMB 02/23/2018 JAMES PHELAN MD, Ot M79.662 PAIN IN LEFT LOWER LEG 02/23/2018 JAMES PHELAN MD, Ot Z79.01 BEST WORKER (CURRENT) USE OF ANTICOAGULANT 02/23/2018 JAMES PHELAN MD, Ot Z79.82 LONGTERM (CURRENT) USE OF ASPIRIN 02/23/2018 JAMES PHELAN MD Ot Z87.01 PERSONAL HISTORY OF PNEUMONIA (RECURRENT 02/23/2018 JAMES PHELAN MD Ot Z90.710 ACQUIRED ABSENCE OF BOTH CERVIX AND UTER 02/23/2018 JAMES PHELAN MD Ot Z90.89 ACQUIRED ABSENCE OF OTHER ORGANS 02/23/2018 JAMES PHELAN MD Ot Z98.51 TUBAL LIGATION STATUS 02/23/2018 JAMES PHELAN MD Ot Z98.890 OTHER SPECIFIED POSTPROCEDURAL STATES 02/25/2018 JAMES PHELAN MD Ot E03.9 HYPOTHYROIDISM, UNSPECIFIED 02/25/2018 JAMES PHELAN MD Ot E78.00 PURE HYPERCHOLESTEROLEMIA, UNSPECIFIED 02/25/2018 JAMES PHELAN MD Ot F31.9 BIPOLAR DISORDER, UNSPECIFIED 02/25/2018 JAMES PHELAN MD Ot F41.9 ANXIETY DISORDER, UNSPECIFIED 02/25/2018 JAMES PHELAN MD Ot G43.909 MIGRAINE, UNSP, NOT INTRACTABLE, WITHOUT 02/25/2018 JAMES PHELAN MD Ot G47.30 SLEEP APNEA, UNSPECIFIED 02/25/2018 JAMES PHELAN MD, Ot I10 ESSENTIAL (PRIMARY) HYPERTENSION 02/25/2018 JAMES PHELAN MD, Ot I25.10 ATHSCL HEART DISEASE OF [place] CORONARY 02/25/2018 JAMES PHELAN MD, Ot I25.2 OLD MYOCARDIAL INFARCTION 02/25/2018 JAMES PHELAN MD, Ot I48.91 UNSPECIFIED ATRIAL FIBRILLATION 02/25/2018 JAMES PHELAN MD, Ot I73.9 PERIPHERAL VASCULAR DISEASE, UNSPECIFIED 02/25/2018 JAMES PHELAN MD, Ot J44.9 CHRONIC OBSTRUCTIVE PULMONARY DISEASE, U 02/25/2018 JAMES PHELAN MD, Ot L03.116 CELLULITIS OF LEFT LOWER LIMB 02/25/2018 JAMES PHELAN MD, Ot M79.662 PAIN IN LEFT LOWER LEG 02/25/2018 JAMES PHELAN MD, Ot Z79.01 LONGTERM (CURRENT) USE OF ANTICOAGULANT 02/25/2018 JAMES PHELAN MD, Ot Z79.82 LONGTERM (CURRENT) USE OF ASPIRIN 02/25/2018 JAMES PHELAN MD, Ot Z87.01 PERSONAL HISTORY OF PNEUMONIA (RECURRENT 02/25/2018 JAMES PHELAN MD, Ot Z90.710 ACQUIRED ABSENCE OF BOTH CERVIX AND UTER 02/25/2018 JAMES PHELAN MD, Ot Z90.89 ACQUIRED ABSENCE OF OTHER ORGANS 02/25/2018 JAMES PHELAN MD, Ot Z98.51 TUBAL LIGATION STATUS 02/25/2018 JAMES PHELAN MD, Ot Z98.890 OTHER SPECIFIED POSTPROCEDURAL STATES 03/14/2018 SCARLET GARRETT APRN Ot L53.9 ERYTHEMATOUS CONDITION, UNSPECIFIED 03/14/2018 SCARLET GARRETT APRN Ot M79.89 OTHER SPECIFIED SOFT TISSUE DISORDERS 03/29/2018 SCARLET GARRETT APRN Ot L53.9 ERYTHEMATOUS CONDITION, UNSPECIFIED 03/29/2018 SCARLET GARRETT APRN Ot M79.89 OTHER SPECIFIED SOFT TISSUE DISORDERS Procedures There is no data. Results Test [...] culture - 08/25/16 16:00 Bacterial urine culture [id number] NRG COLONY COUNT 10,000/ML - 100,000/ML NRG [...] NRG Measurement of body temperature 98.1 NRG Complete blood count (CBC) with automated white blood cell (WBC) differential - 02/23/18 15:40 Blood leukocytes automated count (number/volume) 6.0 10*3/uL 4.3-11.0 Blood erythrocytes automated count (number/volume) 4.43 10*6/uL 4.35-5.85 Venous blood hemoglobin measurement (mass/volume) 13.2 g/dL 11.5-16.0 Blood hematocrit (volume fraction) 41 % 35-52 Automated erythrocyte mean corpuscular volume 93 [foz_us] 80-99 Automated erythrocyte mean corpuscular hemoglobin (mass per erythrocyte) 30 pg 25-34 Automated erythrocyte mean corpuscular hemoglobin concentration measurement ( mass/volume) 32 g/dL 32-36 Automated erythrocyte distribution width ratio 14.3 % 10.0-14.5 Automated blood platelet count (count/volume) 209 10*3/uL 130-400 Automated blood platelet mean volume measurement 9.6 [foz_us] 7.4-10.4 Automated blood neutrophils/100 leukocytes 70 % 42-75 Automated blood lymphocytes/100 leukocytes 19 % 12-44 Blood monocytes/100 leukocytes 9 % 0-12 Automated blood eosinophils/100 leukocytes 2 % 0-10 Automated blood basophils/100 leukocytes 0 % 0-10 Blood neutrophils automated count (number/volume) 4.2 10*3 1.8-7.8 Blood lymphocytes automated count (number/volume) 1.1 10*3 1.0-4.0 Blood monocytes automated count (number/volume) 0.6 10*3 0.0-1.0 Automated eosinophil count 0.1 10*3/uL 0.0-0.3 Automated blood basophil count (count/volume) 0.0 10*3/uL 0.0-0.1 Blood lactic acid measurement (moles/volume) - 02/23/18 15:40 Blood lactic acid measurement (moles/volume) 1.46 mmol/L 0.50-2.00 PT panel in platelet poor plasma by coagulation assay - 02/23/18 15:40 Prothrombin time (PT) in platelet poor plasma by coagulation assay 14.7 s 12.2-14.7 INR in platelet poor plasma or blood by coagulation assay 1.2 0.8-1.4 Activated partial thromboplastin time (aPTT) in platelet poor plasma bycoagulation assay - 02/23/18 15:40 Activated partial thromboplastin time (aPTT) in platelet poor plasma bycoagulation assay 31 s 24-35 Comprehensive metabolic panel - 02/23/18 15:40 Serum or plasma sodium measurement (moles/volume) 139 mmol/L 135-145 Serum or plasma potassium measurement (moles/volume) 4.0 mmol/L 3.6-5.0 Serum or plasma chloride measurement (moles/volume) 104 mmol/L 98-107 Carbon dioxide 26 mmol/L 21-32 Serum or plasma anion gap determination (moles/volume) 9 mmol/L 5-14 Serum or plasma urea nitrogen measurement (mass/volume) 8 mg/dL 7-18 Serum or plasma creatinine measurement (mass/volume) 0.94 mg/dL 0.60-1.30 Serum or plasma urea nitrogen/creatinine mass ratio 9 NRG Serum or plasma creatinine measurement with calculation of estimated glomerular filtration rate 60 NRG Serum or plasma glucose measurement (mass/volume) 109 mg/dL 70-105 Serum or plasma calcium measurement (mass/volume) 9.4 mg/dL 8.5-10.1 Serum or plasma total bilirubin measurement (mass/volume) 0.4 mg/dL 0.1-1.0 Serum or plasma alkaline phosphatase measurement (enzymatic activity/volume) 80 U/L 40-136 Serum or plasma aspartate aminotransferase measurement (enzymatic activity/ volume) 23 U/L 5-34 Serum or plasma alanine aminotransferase measurement (enzymatic activity/volume ) 25 U/L 0-55 Serum or plasma protein measurement (mass/volume) 7.1 g/dL 6.4-8.2 Serum or plasma albumin measurement (mass/volume) 4.2 g/dL 3.2-4.5 CALCIUM CORRECTED 9.2 mg/dL 8.5-10.1 Bacterial blood culture - 02/23/18 15:40 Bacterial blood culture NG NRG Bacterial blood culture - 02/23/18 15:57 Bacterial blood culture NG NRG Encounters ACCT No. Visit Date/Time Discharge Status Pt. Type Provider Facility Loc./Unit Complaint [id number] 03/24/2018 16:07:00 03/24/2018 23:59:59 CLS Preadmit MALGORZATA KENNEDY MD [facility] WOUNDCARE [id number] 02/23/2018 15:02:00 02/23/2018 17:19:00 DIS Emergency JAMES PHELAN MD [facility] ER L LEG CELLULITIS [id number] 02/20/2018 17:13:00 02/21/2018 15:27:00 DIS Inpatient EFRAIN PARKS MD [facility] ICU SOB [id number] 02/17/2018 10:34:00 02/17/2018 23:59:59 CLS Outpatient SCARLET GARRETT APRN [facility] RAD PAIN AND SWELLING OF LEFT LOWER LEG [id number] 02/15/2018 09:44:00 02/15/2018 13:00:00 DIS Emergency JONNATHAN MALLOY APRN [facility] ER STOMACH PAIN; CHEST PAIN [id number] 06/09/2017 15:00:00 06/09/2017 16:58:00 DIS Emergency MOLLY ARANA [facility] ER NEEDS ANTIBIOTIC HERE LAST NIGHT FOR NOSE BLEED [id number] 06/08/2017 21:55:00 06/08/2017 23:20:00 DIS Emergency HUGH CORDOVA MD [facility] ER NOSE BLEED FOR 45 MINUTES - BLOOD THINNERS [id number] 04/29/2017 15:16:00 04/29/2017 23:59:59 CLS Outpatient 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 [facility] RAD M554.42 [id number] 03/28/2017 15:34:00 03/28/2017 18:53:00 DIS Emergency CARISSA ROMERO DO [facility] ER L LEG SWELLING/PAIN [id number] 01/12/2017 15:46:00 01/12/2017 17:08:00 DIS Emergency JONNATHAN MALLOY TIME [employer]AMP ASSEM[employer] [facility] ER TROUBLE BREATHING; HEAVINESS IN CHEST [id number] 11/29/2016 23:07:00 11/30/2016 02:36:00 DIS Emergency TASHA LU, HUGH Ba [facility] ER D/N FEVER WEAK [id number] 08/25/2016 14:30:00 08/25/2016 18:32:00 DIS Emergency JAMES PHELAN MD [facility] ER DIZZINESS/NAUSEA/ SHAKEY LEFT CALF PAIN [id number] 05/12/2016 23:38:00 05/13/2016 01:24:00 DIS Emergency CARISSA ROMERO DO [facility] ER N/V/D [id number] 02/25/2016 14:56:00 02/25/2016 23:59:59 CLS Outpatient ZARI LU, SAIDA Oliveira [facility] RAD WHEEZING [id number] 08/13/2015 08:10:00 08/13/2015 23:59:59 CLS Outpatient ESTELA SALINAS [facility] CARD CHEST PAIN, PALPITATIONS,AFIB [id number] 06/16/2015 12:33:00 06/16/2015 14:55:00 DIS Emergency SANDRITA ALVARADO MD [facility] ER SOB/COPD [id number] 04/05/2015 09:50:00 04/05/2015 12:07:00 DIS Emergency SANDRITA ALVARADO MD [facility] ER SOA [id number] 04/02/2015 12:02:00 04/04/2015 09:45:00 DIS Inpatient SAIDA HAMEED MD [facility] 4TH COPD,EXACERBATION [id number] 02/21/2015 15:46:00 02/21/2015 23:59:59 CLS Outpatient SAIDA HAMEED MD [facility] RAD BRONCHITIS [id number] 11/20/2014 23:05:00 11/22/2014 09:45:00 DIS Inpatient SAIDA HAMEED MD [facility] 4TH BLEACH FUMES EXPOSURE, COPD EXACERBATION [id number] 10/25/2014 14:21:00 10/25/2014 19:30:00 DIS Emergency JAMES PHELAN MD [facility] ER LEFT GROIN PAIN [id number] 10/13/2013 20:46:00 10/14/2013 00:44:00 DIS Emergency JULIANA HERNANDEZ DO [facility] ER L LEG PAIN; CHEST PAIN [id number] 09/25/2013 12:37:00 09/25/2013 23:59:59 CLS Outpatient TRACY JOSEPH DO [facility] RT COPD,AFIB [id number] 08/25/2013 00:35:00 08/25/2013 12:05:00 DIS Inpatient SAIDA HAMEED MD [facility] CSD CHEST PAIN, SUBTHERAPEUTIC INR [id number] 07/04/2013 11:07:00 07/04/2013 23:59:59 CLS Outpatient SAIDA HAMEED MD [facility] RAD SWELLING,PAIN [id number] 06/28/2013 16:29:00 06/28/2013 17:24:00 DIS Emergency CARISSA ROMERO DO [facility] ER VOMITING,COUGH, POST EXPOSURE TO CLOROX [id number] 05/21/2013 20:58:00 05/25/2013 10:45:00 DIS Inpatient SAIDA HAMEED MD [facility] 4TH COPD EXACERBATION; WEAKNESS [id number] 05/21/2013 13:28:00 05/21/2013 15:42:00 DIS Emergency JONNATHAN MALLOY TIME [employer]SEM[employer]ER [facility] ER SOA CONGESTION R ARM PAIN [id number] 03/24/2013 17:10:00 03/25/2013 09:50:00 DIS Inpatient VIELKA MORENO MD [facility] ICU CHEST PAIN [id number] 03/01/2013 01:10:00 03/01/2013 14:29:00 DIS Inpatient ZARI LU, SAIDA Oliveira [facility] 4TH ACUTE EXACERBATION OF COPD [id number] 02/13/2013 12:59:00 02/13/2013 14:18:00 DIS Emergency JONNATHAN MALLOY TIME [employer] ASSEMBLER [facility] ER LEFT LEG/GROIN PAIN [id number] 12/27/2012 13:08:00 12/27/2012 15:00:00 DIS Emergency JONNATHAN MALLOY TIME STAMP ASSEMBLER [facility] ER RIGHT ARM NUMBNESS/LEFT THIGH KNOT [id number] 12/02/2012 08:45:00 12/02/2012 23:59:59 CLS Outpatient JAMES PHELAN MD [facility] LAB SUPRATHERAPEUTIC INR [id number] 11/30/2012 15:06:00 11/30/2012 18:11:00 DIS Emergency JAMES PHELAN MD [facility] ER SOA,HEADACHE, DIZZINESS [id number] 10/30/2012 11:45:00 10/30/2012 23:59:59 CLS Outpatient [id number] 08/20/2012 10:02:00 08/20/2012 23:59:59 CLS Outpatient [id number] 10/25/2014 14:22:00 Document Registration [id number] 10/25/2014 14:22:00 Document Registration [id number] 10/25/2014 14:21:00 Document Registration [id number] 10/25/2014 14:21:00 Document Registration [id number] 10/25/2014 14:21:00 Document Registration [id number] 10/25/2014 14:21:00 Document Registration [id number] 10/25/2014 14:21:00 Document Registration [id number] 10/25/2014 14:21:00 Document Registration [id number] 10/25/2014 14:21:00 Document Registration [id number] 07/01/2014 22:30:00 Document Registration [id number] 06/13/2012 19:15:00 Document Registration [id number] 02/23/2012 01:00:00 Document Registration [id number] 12/03/2011 00:00:00 Document Registration [id number] 11/12/2011 21:51:00 Document Registration [id number] 10/13/2011 08:28:00 Document Registration [id number] 09/03/2011 12:33:00 Document Registration [id number] 08/21/2011 20:45:00 Document Registration [id number] 03/24/2011 20:48:00 Document Registration [id number] 01/24/2011 21:19:00 Document Registration [id number] 09/28/2010 18:20:00 Document Registration [id number] 04/29/2010 21:21:00 Document Registration [id number] 02/10/2010 09:58:00 Document Registration [id number] 01/29/2010 14:43:00 Document Registration [id number] 11/25/2009 11:02:00 Document Registration [id number] 11/13/2009 23:33:00 Document Registration [id number] 10/28/2009 11:54:00 Document Registration [id number] 09/27/2009 10:28:00 Document Registration [id number] 09/20/2009 15:31:00 Document Registration [id number] 07/29/2009 13:39:00 Document Registration [id number] 07/29/2009 12:23:00 Document Registration [id number] 11/20/2014 19:15:56 ACT Document Registration [id number] 12/02/2017 15:15:00 12/02/2017 23:59:59 [facility] ELIE Chaparro [facility]
== END 2018-04-17 18:50 | disposition left against medical advice (07) ==
LOC: EDUNIT# 18:39 → ER 18:40
DX: R22.31 Localized swelling, mass and lump, right upper limb (principal); R58 Hemorrhage, not elsewhere classified

== ENCOUNTER 2018-05-25 18:10 | Emergency (ER) | payer MEDICARE, MEDICAID ==
[~2018-05-25] VITALS: Ht 172.7 cm; Wt 132.9 kg
[~2018-05-25 18:10] MED LIST changes: +METR-145 PO; -METR-197 PO
[2018-05-25] MEDS ORDERED: KETOROLAC 60 MG/2 ML VIAL ONE (18:13)
[2018-05-25] MEDS ORDERED: RT-ALBUTEROL/IPRATROPIUM 3 ML (DUONEB) VIAL ONE (18:14)
--- OUTSIDE RECORDS SUMMARY | 2018-05-25 18:20 | XMS REPORT | Continuity of Care Document ---
Author Author [facility] Organization [facility] Address Unknown Phone Unavailable Allergies Active Description Code Type Severity Reaction Onset Reported/Identified Relationship to Patient Clinical Status Yes NKDA NKDA Mild N/ A 10/13/2008 Yes No Known Drug Allergies [id number] Drug Allergy Unknown N/A 04/02/2015 Medications There [...] INFARCT 09/29/2010 Ot 414.01 CORONARY ATHEROSCLEROSIS OF [place] CORON 09/29/2010 Ot 427.31 ATRIAL FIBRILLATION 09/29/2010 [...] 786.05 SHORTNESS OF BREATH 05/21/2013 JONNATHAN MALLOY [employer] SUPERVISOR Ot V58.61 ANTICOAGULANTS,LT,CURRENT USE 05/21/2013 JONNATHAN MALLOY [...] PULMONARY DISEASE W 08/14/2015 BAIMA, ESTELA L NETWORK TECHNICAL ANALYST Ot G47.30 SLEEP APNEA, UNSPECIFIED 08/14/2015 BAIMA, ESTELA L NETWORK TECHNICAL ANALYST Ot I48.91 UNSPECIFIED ATRIAL FIBRILLATION 08/14/2015 BAIMA, ESTELA L NETWORK TECHNICAL ANALYST Ot J44.9 CHRONIC OBSTRUCTIVE PULMONARY DISEASE, U 08/14/2015 BAIMA, ESTELA L NETWORK TECHNICAL ANALYST Ot R06.00 DYSPNEA, UNSPECIFIED 08/14/2015 BAIMA, ESTELA L NETWORK TECHNICAL ANALYST Ot R07.9 CHEST PAIN, UNSPECIFIED 08/14/2015 BAIMA, ESTELA L NETWORK TECHNICAL ANALYST Ot Z79.01 ANALYTICAL LABORATORY TECHNICIAN (CURRENT) USE OF ANTICOAGULANT 09/03/2015 BAIMA, ESTELA L NETWORK TECHNICAL ANALYST Ot G47.30 SLEEP APNEA, UNSPECIFIED 09/03/2015 BAIMA, ESTELA L NETWORK TECHNICAL ANALYST Ot I48.91 UNSPECIFIED ATRIAL FIBRILLATION 09/03/2015 BAIMA, ESTELA L NETWORK TECHNICAL ANALYST Ot J44.9 CHRONIC OBSTRUCTIVE PULMONARY DISEASE, U 09/03/2015 BAIMA, ESTELA L NETWORK TECHNICAL ANALYST Ot R06.00 DYSPNEA, UNSPECIFIED 09/03/2015 BAIMA, ESTELA L NETWORK TECHNICAL ANALYST Ot R07.9 CHEST PAIN, UNSPECIFIED 09/03/2015 BAIMA, ESTELA L NETWORK TECHNICAL ANALYST Ot Z79.01 ANALYTICAL LABORATORY TECHNICIAN (CURRENT) USE OF ANTICOAGULANT 09/20/2015 MELLYMA ESTELA L NETWORK TECHNICAL ANALYST Ot G47.30 SLEEP APNEA, UNSPECIFIED 09/20/2015 BAIMA ESTELA L NETWORK TECHNICAL ANALYST Ot I48.91 UNSPECIFIED ATRIAL FIBRILLATION 09/20/2015 MELLYMALUIGIESTELA L NETWORK TECHNICAL ANALYST Ot J44.9 CHRONIC OBSTRUCTIVE PULMONARY DISEASE, U 09/20/2015 MELLYLUIGI MARTINEZHER L NETWORK TECHNICAL ANALYST Ot R06.00 DYSPNEA, UNSPECIFIED 09/20/2015 BAIMA, ESTELA L NETWORK TECHNICAL ANALYST Ot R07.9 CHEST PAIN, UNSPECIFIED 09/20/2015 BAIMALUIGIESTELA L NETWORK TECHNICAL ANALYST Ot Z79.01 CUSTODIAL (CURRENT) USE OF ANTICOAGULANT 02/25/2016 Ot 709.9 [...] ACUTE OR CH 02/25/2016 RITA ESTELA L NETWORK TECHNICAL ANALYST Ot G47.30 SLEEP APNEA, UNSPECIFIED 02/25/2016 MELLYMA ESTELA L NETWORK TECHNICAL ANALYST Ot I48.91 UNSPECIFIED ATRIAL FIBRILLATION 02/25/2016 MELLYJUAN ESTELA L NETWORK TECHNICAL ANALYST Ot J44.9 CHRONIC OBSTRUCTIVE PULMONARY DISEASE, U 02/25/2016 MELLYMA ESTELA L NETWORK TECHNICAL ANALYST Ot R06.00 DYSPNEA, UNSPECIFIED 02/25/2016 MELLYMA ESTELA L NETWORK TECHNICAL ANALYST Ot R07.9 CHEST PAIN, UNSPECIFIED 02/25/2016 ESTELA SALINAS NETWORK TECHNICAL ANALYST Ot Z79.01 ANALYTICAL LABORATORY TECHNICIAN (CURRENT) USE OF ANTICOAGULANT 02/26/2016 ZARI LU, [...] SPECIFIED ACUTE OR CH 03/03/2016 ESTELA SALINAS NETWORK TECHNICAL ANALYST Ot G47.30 SLEEP APNEA, UNSPECIFIED 03/03/2016 ESTELA SALINAS NETWORK TECHNICAL ANALYST Ot I48.91 UNSPECIFIED ATRIAL FIBRILLATION 03/03/2016 ESTELA SALINAS NETWORK TECHNICAL ANALYST Ot J44.9 CHRONIC OBSTRUCTIVE PULMONARY DISEASE, U 03/03/2016 ESTELA SALINAS NETWORK TECHNICAL ANALYST Ot R06.00 DYSPNEA, UNSPECIFIED 03/03/2016 ESTELA SALINAS NETWORK TECHNICAL ANALYST Ot R07.9 CHEST PAIN, UNSPECIFIED 03/03/2016 ESTELA SALINAS NETWORK TECHNICAL ANALYST Ot Z79.01 CUSTODIAL (CURRENT) USE OF ANTICOAGULANT 03/03/2016 SAIDA HAMEED [...] UNSPECIFIED 05/13/2016 NICK DODEANNAA K Ot Z79.82 CUSTODIAL (CURRENT) USE OF ASPIRIN 05/13/2016 NICK DO CARISSA K Ot Z79.891 CUSTODIAL (CURRENT) USE OF OPIATE ANALGE 05/13/2016 NICK DO CARISSA K Ot Z79.899 OTHER CUSTODIAL (CURRENT) DRUG THERAPY 05/14/2016 NICK DODEANNAA K [...] 05/14/2016 NICK DO CARISSA K Ot Z79.82 ANALYTICAL LABORATORY TECHNICIAN (CURRENT) USE OF ASPIRIN 05/14/2016 NICK DO CARISSA K Ot Z79.891 ANALYTICAL LABORATORY TECHNICIAN (CURRENT) USE OF OPIATE ANALGE 05/14/2016 NICK DEANNA SALAZARA K Ot Z79.899 OTHER CUSTODIAL (CURRENT) DRUG THERAPY 08/25/2016 Ot 709.9 SKIN [...] SPECIFIED ACUTE OR CH 08/25/2016 MELLYMAESTELA L NETWORK TECHNICAL ANALYST Ot G47.30 SLEEP APNEA, UNSPECIFIED 08/25/2016 BAIMA ESTELA L NETWORK TECHNICAL ANALYST Ot I48.91 UNSPECIFIED ATRIAL FIBRILLATION 08/25/2016 ESTELA SALINAS L NETWORK TECHNICAL ANALYST Ot J44.9 CHRONIC OBSTRUCTIVE PULMONARY DISEASE, U 08/25/2016 ESTELA SALINAS L NETWORK TECHNICAL ANALYST Ot R06.00 DYSPNEA, UNSPECIFIED 08/25/2016 MELLYMAESTELA L NETWORK TECHNICAL ANALYST Ot R07.9 CHEST PAIN, UNSPECIFIED 08/25/2016 ESTELA SALINAS L NETWORK TECHNICAL ANALYST Ot Z79.01 CUSTODIAL (CURRENT) USE OF ANTICOAGULANT 08/25/2016 SAIDA HAMEED MD Ot R06.2 WHEEZING 08/25/2016 Ot V58.61 ANTICOAGULANTS,LT,CURRENT USE 08/25/2016 Ot V58.83 ENCOUNTER FOR THERAPEUTIC DRUG MONITORIN 08/25/2016 JAMES PHELAN MD Ot I10 ESSENTIAL (PRIMARY) HYPERTENSION 08/25/2016 JAMES PHELAN MD Ot I25.10 ATHSCL HEART DISEASE OF [place] CORONARY 08/25/2016 JAMES PHELAN MD Ot J44.9 CHRONIC OBSTRUCTIVE PULMONARY DISEASE, U 08/25/2016 JAMES PHELAN MD Ot M79.662 PAIN IN LEFT LOWER LEG 08/25/2016 JAMES PHELAN MD Ot R07.9 CHEST PAIN, UNSPECIFIED 08/25/2016 JAMES PHELAN MD Ot R42 DIZZINESS AND GIDDINESS 08/25/2016 JAMES PHELAN MD Ot Z79.899 OTHER CUSTODIAL (CURRENT) DRUG THERAPY 08/26/2016 JAMES PHELAN MD Ot I10 ESSENTIAL (PRIMARY) HYPERTENSION 08/26/2016 JAMES PHELAN MD Ot I25.10 ATHSCL HEART DISEASE OF [place] CORONARY 08/26/2016 JAMES PHELAN MD, Ot J44.9 CHRONIC OBSTRUCTIVE PULMONARY DISEASE, U 08/26/2016 JAMES PHELAN MD Ot M79.662 PAIN IN LEFT LOWER LEG 08/26/2016 JAMES PHELAN MD Ot R07.9 CHEST PAIN, UNSPECIFIED 08/26/2016 JAMES PHELAN MD, Ot R42 DIZZINESS AND GIDDINESS 08/26/2016 JAMES PHELAN MD, Ot Z79.899 OTHER ANALYTICAL LABORATORY TECHNICIAN (CURRENT) DRUG THERAPY 11/30/2016 HUGH CORDOVA MD [...] MD Ot I25.10 ATHSCL HEART DISEASE OF [place] CORONARY 11/30/2016 HUGH CORDOVA MD Ot I25.2 [...] UNSPECIFIED 11/30/2016 HUGH CORDOVA MD Ot Z79.01 CUSTODIAL (CURRENT) USE OF ANTICOAGULANT 11/30/2016 HUGH CORDOVA MD Ot Z79.82 CUSTODIAL (CURRENT) USE OF ASPIRIN 11/30/2016 HUGH CORDOVA [...] MD Ot I25.10 ATHSCL HEART DISEASE OF [place] CORONARY 11/30/2016 HUGH CORDOVA MD Ot I25.2 [...] UNSPECIFIED 11/30/2016 HUGH CORDOVA MD, Ot Z79.01 CUSTODIAL (CURRENT) USE OF ANTICOAGULANT 11/30/2016 HUGH CORDOVA MD, Ot Z79.82 ANALYTICAL LABORATORY TECHNICIAN (CURRENT) USE OF ASPIRIN 11/30/2016 HUGH CORDOVA [...] APRN Ot I25.10 ATHSCL HEART DISEASE OF [place] CORONARY 01/12/2017 JONNATHAN MALLOY APRN Ot I25.2 OLD MYOCARDIAL INFARCTION 01/12/2017 JONNATHAN MALLOY APRN Ot I48.91 UNSPECIFIED ATRIAL FIBRILLATION 01/12/2017 JONNATHAN MALLOY APRN Ot J45.909 UNSPECIFIED ASTHMA, UNCOMPLICATED 01/12/2017 JONNATHAN MALLOY APRN Ot K21.9 GASTRO-ESOPHAGEAL REFLUX DISEASE WITHOUT 01/12/2017 JONNATHAN MALLOY APRN Ot R06.00 DYSPNEA, UNSPECIFIED 01/12/2017 JONNATHAN MALLOY APRN Ot Z79.82 ANALYTICAL LABORATORY TECHNICIAN (CURRENT) USE OF ASPIRIN 01/12/2017 JONNATHAN MALLOY [...] APRN Ot I25.10 ATHSCL HEART DISEASE OF [place] CORONARY 01/14/2017 JONNATHAN MALLOY APRN Ot I25.2 OLD MYOCARDIAL INFARCTION 01/14/2017 JONNATHAN MALLOY APRN Ot I48.91 UNSPECIFIED ATRIAL FIBRILLATION 01/14/2017 JONNATHAN MALLOY APRN Ot J45.909 UNSPECIFIED ASTHMA, UNCOMPLICATED 01/14/2017 JONNATHAN MALLOY APRN Ot K21.9 GASTRO-ESOPHAGEAL REFLUX DISEASE WITHOUT 01/14/2017 JONNATHAN MALLOY APRN Ot R06.00 DYSPNEA, UNSPECIFIED 01/14/2017 JONNATHAN MALLOY APRN Ot Z79.82 ANALYTICAL LABORATORY TECHNICIAN (CURRENT) USE OF ASPIRIN 01/14/2017 JONNATHAN MALLOY APRN Ot Z87.81 PERSONAL HISTORY OF (HEALED) TRAUMATIC F 01/14/2017 JONNATHAN AMLLOY APRN Ot Z90.710 ACQUIRED ABSENCE OF BOTH [...] APRN Ot I25.10 ATHSCL HEART DISEASE OF [place] CORONARY 01/18/2017 JONNATHAN MALLOY APRN Ot I25.2 OLD MYOCARDIAL INFARCTION 01/18/2017 JONNATHAN MALLOY APRN Ot I48.91 UNSPECIFIED ATRIAL FIBRILLATION 01/18/2017 JONNATHAN MALLOY APRN Ot J45.909 UNSPECIFIED ASTHMA, UNCOMPLICATED 01/18/2017 JONNATHAN MALLOY APRN Ot K21.9 GASTRO-ESOPHAGEAL REFLUX DISEASE WITHOUT 01/18/2017 JONNATHAN MALLOY APRN Ot R06.00 DYSPNEA, UNSPECIFIED 01/18/2017 JONNATHAN MALLOY APRN Ot Z79.82 ANALYTICAL LABORATORY TECHNICIAN (CURRENT) USE OF ASPIRIN 01/18/2017 JONNATHAN MALLOY [...] K Ot I25.10 ATHSCL HEART DISEASE OF [place] CORONARY 03/28/2017 CARISSA ROMERO DO Ot I25.2 [...] KNEE 03/28/2017 CARISSA ROMERO DO Ot Z79.01 CUSTODIAL (CURRENT) USE OF ANTICOAGULANT 03/28/2017 CARISSA ROMERO DO Ot Z79.82 CUSTODIAL (CURRENT) USE OF ASPIRIN 03/28/2017 CARISSA ROMERO [...] DO Ot I25.10 ATHSCL HEART DISEASE OF [place] CORONARY 03/31/2017 CARISSA ROMERO DO Ot I25.2 [...] 03/31/2017 NICK SALAZAR CARISSA Roberto Ot Z79.01 ANALYTICAL LABORATORY TECHNICIAN (CURRENT) USE OF ANTICOAGULANT 03/31/2017 NICK SALAZAR CARISSA K Ot Z79.82 CUSTODIAL (CURRENT) USE OF ASPIRIN 03/31/2017 NICK SALAZAR [...] MD Ot I25.10 ATHSCL HEART DISEASE OF [place] CORONARY 06/08/2017 HUGH CORDOVA MD, Ot I25.2 OLD MYOCARDIAL INFARCTION 06/08/2017 HUGH CORDOVA MD, Ot I48.91 UNSPECIFIED ATRIAL FIBRILLATION 06/08/2017 HUGH CORDOVA MD, Ot I73.9 PERIPHERAL VASCULAR DISEASE, UNSPECIFIED 06/08/2017 HUGH CORDOVA MD, Ot J44.9 CHRONIC OBSTRUCTIVE PULMONARY DISEASE, U 06/08/2017 HUGH CORDOVA MD Ot R04.0 EPISTAXIS 06/08/2017 HUGH CORDOVA MD, Ot Z79.01 CUSTODIAL (CURRENT) USE OF ANTICOAGULANT 06/08/2017 HUGH CORDOVA MD, Ot Z79.82 ANALYTICAL LABORATORY TECHNICIAN (CURRENT) USE OF ASPIRIN 06/08/2017 HUGH CORDOVA [...] ARANA Ot I25.10 ATHSCL HEART DISEASE OF [place] CORONARY 06/09/2017 MOLLY ARANA Ot I25.2 OLD MYOCARDIAL INFARCTION 06/09/2017 MOLLY ARANA Ot I48.91 UNSPECIFIED ATRIAL FIBRILLATION 06/09/2017 MOLLY ARANA Ot I73.9 PERIPHERAL VASCULAR DISEASE, UNSPECIFIED 06/09/2017 MOLLY ARANA Ot J34.89 OTHER SPECIFIED DISORDERS OF NOSE AND NA 06/09/2017 MOLLY ARANA Ot J45.909 UNSPECIFIED ASTHMA, UNCOMPLICATED 06/09/2017 MOLLY ARANA Ot R04.0 EPISTAXIS 06/09/2017 MOLLY ARANA Ot Z79.01 ANALYTICAL LABORATORY TECHNICIAN (CURRENT) USE OF ANTICOAGULANT 06/09/2017 MOLLY ARANA Ot Z79.82 CUSTODIAL (CURRENT) USE OF ASPIRIN 06/09/2017 MOLLY ARANA [...] MD Ot I25.10 ATHSCL HEART DISEASE OF [place] CORONARY 06/10/2017 HUGH CORDOVA MD Ot I25.2 OLD MYOCARDIAL INFARCTION 06/10/2017 HUGH CORDOVA MD Ot I48.91 UNSPECIFIED ATRIAL FIBRILLATION 06/10/2017 HUGH CORDOVA MD Ot I73.9 PERIPHERAL VASCULAR DISEASE, UNSPECIFIED 06/10/2017 HUGH CORDOVA MD, Ot J44.9 CHRONIC OBSTRUCTIVE PULMONARY DISEASE, U 06/10/2017 HUGH CORDOVA MD Ot R04.0 EPISTAXIS 06/10/2017 HUGH CORDOVA MD, Ot Z79.01 CUSTODIAL (CURRENT) USE OF ANTICOAGULANT 06/10/2017 HUGH CORDOVA MD Ot Z79.82 CUSTODIAL (CURRENT) USE OF ASPIRIN 06/10/2017 HUGH CORDOVA [...] ARANA Ot I25.10 ATHSCL HEART DISEASE OF [place] CORONARY 06/11/2017 MOLLY ARANA Ot I25.2 OLD MYOCARDIAL INFARCTION 06/11/2017 MOLLY ARANA Ot I48.91 UNSPECIFIED ATRIAL FIBRILLATION 06/11/2017 MOLLY ARANA Ot I73.9 PERIPHERAL VASCULAR DISEASE, UNSPECIFIED 06/11/2017 MOLLY ARANA Ot J34.89 OTHER SPECIFIED DISORDERS OF NOSE AND NA 06/11/2017 MOLLY ARANA Ot J45.909 UNSPECIFIED ASTHMA, UNCOMPLICATED 06/11/2017 MOLLY ARANA Ot R04.0 EPISTAXIS 06/11/2017 MOLLY ARANA Ot Z79.01 ANALYTICAL LABORATORY TECHNICIAN (CURRENT) USE OF ANTICOAGULANT 06/11/2017 MOLLY ARANA Ot Z79.82 ANALYTICAL LABORATORY TECHNICIAN (CURRENT) USE OF ASPIRIN 06/11/2017 MOLLY ARANA Ot Z87.01 PERSONAL HISTORY OF PNEUMONIA (RECURRENT 06/11/2017 MOLLY ARANA Ot Z87.09 PERSONAL HISTORY OF OTHER DISEASES OF TH 06/11/2017 MOLLY AARNA Ot Z90.49 ACQUIRED ABSENCE OF OTHER SPECIFIED [...] K Ot I25.10 ATHSCL HEART DISEASE OF [place] CORONARY 07/18/2017 CARISSA ROMERO DO Ot I25.2 [...] KNEE 07/18/2017 CARISSA ROMERO DO Ot Z79.01 ANALYTICAL LABORATORY TECHNICIAN (CURRENT) USE OF ANTICOAGULANT 07/18/2017 CARISSA ROMERO DO Ot Z79.82 CUSTODIAL (CURRENT) USE OF ASPIRIN 07/18/2017 CARISSA ROMERO [...] JOSEPH DO Ot 278.01 MORBID OBESITY 02/15/2018 RTACY JOSEPH DO Ot 311 DEPRESSIVE DISORDER NEC 02/15/2018 TRACY JOSEPH DO Ot 427.31 ATRIAL FIBRILLATION 02/15/2018 TRACY JOSEPH DO Ot 496 CHR AIRWAY OBSTRUCT NEC 02/15/2018 ZARI LU, SAIDA R Ot J40 BRONCHITIS, NOT SPECIFIED ACUTE OR CH 02/15/2018 ESTELA SALINAS NETWORK TECHNICAL ANALYST Ot G47.30 SLEEP APNEA, UNSPECIFIED 02/15/2018 ESTELA SALINAS L NETWORK TECHNICAL ANALYST Ot I48.91 UNSPECIFIED ATRIAL FIBRILLATION 02/15/2018 ESTELA SALINAS NETWORK TECHNICAL ANALYST Ot J44.9 CHRONIC OBSTRUCTIVE PULMONARY DISEASE, U 02/15/2018 ESTELA SALINAS L NETWORK TECHNICAL ANALYST Ot R06.00 DYSPNEA, UNSPECIFIED 02/15/2018 ESTELA SALINAS L NETWORK TECHNICAL ANALYST Ot R07.9 CHEST PAIN, UNSPECIFIED 02/15/2018 ESTELA SALINAS L NETWORK TECHNICAL ANALYST Ot Z79.01 ANALYTICAL LABORATORY TECHNICIAN (CURRENT) USE OF ANTICOAGULANT 02/15/2018 ZARI LU, SAIDA R Ot R06.2 WHEEZING 02/15/2018 SCARLET GARRETT [employer] SUPERVISOR Ot M51.36 OTHER INTERVERTEBRAL DISC DEGENERATION, 02/15/2018 SCARLET GARRETT [employer] SUPERVISOR Ot 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 [...] APRN Ot I25.10 ATHSCL HEART DISEASE OF [place] CORONARY 02/15/2018 JONNATHAN MALLOY APRN Ot I25.2 OLD MYOCARDIAL INFARCTION 02/15/2018 JONNATHAN MALLOY APRN Ot I48.91 UNSPECIFIED ATRIAL FIBRILLATION 02/15/2018 JONNATHAN MALLOY APRN Ot J44.9 CHRONIC OBSTRUCTIVE PULMONARY DISEASE, U 02/15/2018 JONNATHAN MALLOY APRN Ot K52.9 NONINFECTIVE GASTROENTERITIS AND COLITIS 02/15/2018 JONNATHAN MALLOY APRN Ot R11.0 NAUSEA 02/15/2018 JONNATHAN MALLOY APRN Ot Z79.82 CUSTODIAL (CURRENT) USE OF ASPIRIN 02/15/2018 JONNATHAN MALLOY [...] APRN Ot I25.10 ATHSCL HEART DISEASE OF [place] CORONARY 02/17/2018 JONNATHAN MALLOY APRN Ot I25.2 OLD MYOCARDIAL INFARCTION 02/17/2018 JONNATHAN MALLOY APRN Ot I48.91 UNSPECIFIED ATRIAL FIBRILLATION 02/17/2018 JONNATHAN MALLOY APRN Ot J44.9 CHRONIC OBSTRUCTIVE PULMONARY DISEASE, U 02/17/2018 JONNATHAN MALLOY APRN Ot K52.9 NONINFECTIVE GASTROENTERITIS AND COLITIS 02/17/2018 JONNATHAN MALLOY APRN Ot R11.0 NAUSEA 02/17/2018 JONNATHAN MALLOY APRN Ot Z79.82 CUSTODIAL (CURRENT) USE OF ASPIRIN 02/17/2018 JONNATHAN MALLOY [...] MD Ot I25.10 ATHSCL HEART DISEASE OF [place] CORONARY 02/21/2018 EFRAIN PARKS MD Ot I25.2 [...] ADULT 02/21/2018 EFRAIN PARKS MD, Ot Z79.01 ANALYTICAL LABORATORY TECHNICIAN (CURRENT) USE OF ANTICOAGULANT 02/21/2018 EFRAIN PARKS MD, Ot Z79.82 CUSTODIAL (CURRENT) USE OF ASPIRIN 02/21/2018 EFRAIN PARKS MD, Ot Z79.899 OTHER CUSTODIAL (CURRENT) DRUG THERAPY 02/21/2018 EFRAIN PARKS MD, Ot Z91.19 PATIENT'S NONCOMPLIANCE W [facility] 02/21/2018 EFRAIN PARKS MD, Ot E03.9 HYPOTHYROIDISM, UNSPECIFIED 02/21/2018 EFRAIN PARKS MD Ot E66.01 MORBID (SEVERE) OBESITY DUE TO EXCESS CA 02/21/2018 EFRAIN PARKS MD, Ot E78.5 HYPERLIPIDEMIA, UNSPECIFIED 02/21/2018 EFRAIN PARKS MD, Ot F32.9 MAJOR DEPRESSIVE DISORDER, SINGLE EPISOD 02/21/2018 EFRAIN PARKS MD, Ot G47.30 SLEEP APNEA, UNSPECIFIED 02/21/2018 EFRAIN PARKS MD, Ot I25.10 ATHSCL HEART DISEASE OF [place] CORONARY 02/21/2018 EFRAIN PARKS MD, Ot I25.2 [...] ADULT 02/21/2018 EFRAIN PARKS MD, Ot Z79.01 ANALYTICAL LABORATORY TECHNICIAN (CURRENT) USE OF ANTICOAGULANT 02/21/2018 EFRAIN PARKS MD, Ot Z79.82 ANALYTICAL LABORATORY TECHNICIAN (CURRENT) USE OF ASPIRIN 02/21/2018 EFRAIN PARKS MD, Ot Z79.899 OTHER ANALYTICAL LABORATORY TECHNICIAN (CURRENT) DRUG THERAPY 02/21/2018 EFRAIN PARKS MD, Ot Z91.19 PATIENT'S NONCOMPLIANCE W [facility] 02/22/2018 SCARLET GARRETT APRN [...] MD Ot G47.30 SLEEP APNEA, UNSPECIFIED 02/23/2018 CABAZON MD, JAMES D Ot I10 ESSENTIAL (PRIMARY) HYPERTENSION 02/23/2018 JAMES PHELAN MD Ot I25.10 ATHSCL HEART DISEASE OF [place] CORONARY 02/23/2018 JAMES PHELAN MD, Ot I25.2 [...] LEG 02/23/2018 JAMES PHELAN MD, Ot Z79.01 ANALYTICAL LABORATORY TECHNICIAN (CURRENT) USE OF ANTICOAGULANT 02/23/2018 JAMES PHELAN MD, Ot Z79.82 CUSTODIAL (CURRENT) USE OF ASPIRIN 02/23/2018 JAMES PHELAN [...] MD, Ot I25.10 ATHSCL HEART DISEASE OF [place] CORONARY 02/25/2018 JAMES PHELAN MD, Ot I25.2 [...] LEG 02/25/2018 JAMES PHELAN MD, Ot Z79.01 CUSTODIAL (CURRENT) USE OF ANTICOAGULANT 02/25/2018 JAMES PHELAN MD, Ot Z79.82 CUSTODIAL (CURRENT) USE OF ASPIRIN 02/25/2018 JAMES PHELAN MD, Ot Z87.01 PERSONAL HISTORY OF PNEUMONIA (RECURRENT 02/25/2018 JAMES PHELAN MD, Ot Z90.710 ACQUIRED ABSENCE OF BOTH CERVIX AND UTER 02/25/2018 JAMES PHELAN MD, Ot Z90.89 ACQUIRED ABSENCE OF OTHER ORGANS 02/25/2018 JAMES PHELAN MD, Ot Z98.51 TUBAL LIGATION STATUS 02/25/2018 JAMES PHELAN MD, Ot Z98.890 OTHER SPECIFIED POSTPROCEDURAL STATES 03/14/2018 SCARLET GARRETT [employer] SUPERVISOR Ot L53.9 ERYTHEMATOUS CONDITION, UNSPECIFIED 03/14/2018 SCARLET GARRETT [employer] SUPERVISOR Ot M79.89 OTHER SPECIFIED SOFT TISSUE DISORDERS 03/29/2018 SCARLET GARRETT [employer] SUPERVISOR Ot L53.9 ERYTHEMATOUS CONDITION, UNSPECIFIED 03/29/2018 SCARLET GARRETT [employer] SUPERVISOR Ot M79.89 OTHER SPECIFIED SOFT TISSUE DISORDERS 04/21/2018 STEFAN ROBLES MD Ot R22.31 LOCALIZED SWELLING, MASS AND LUMP, RIGHT 04/21/2018 STEFAN ROBLES MD Ot R58 HEMORRHAGE, NOT ELSEWHERE CLASSIFIED 04/23/2018 TRAVIS MD, STEFAN J Ot R22.31 LOCALIZED SWELLING, MASS AND LUMP, RIGHT 04/23/2018 TRAVIS LU, STEFAN J Ot R58 HEMORRHAGE, NOT ELSEWHERE CLASSIFIED Procedures There is no data. Results Test [...] culture - 08/25/16 16:00 Bacterial urine culture [id number] NRG COLONY COUNT 10,000/ML - 100,000/ML NRG [...] Status Pt. Type Provider Facility Loc./Unit Complaint [id number] 04/17/2018 18:40:00 04/17/2018 18:50:00 DIS Outpatient STEFAN ROBLES MD [facility] ER R ARM LUMP/BLOOD UNDER SKIN [id number] 03/24/2018 16:07:00 03/24/2018 23:59:59 CLS Preadmit MALGORZATA KENNEDY MD [facility] WOUNDCARE [id number] 02/23/2018 15:02:00 02/23/2018 17:19:00 DIS Emergency ZHANE LU, JAMES Rodríguez [facility] ER L LEG CELLULITIS [id number] 02/20/2018 17:13:00 02/21/2018 15:27:00 DIS Inpatient EFRAIN PARKS MD [facility] ICU SOB [id number] 02/17/2018 10:34:00 02/17/2018 23:59:59 CLS Outpatient SCARLET GARRETT APRN [facility] RAD PAIN AND SWELLING OF LEFT LOWER LEG [id number] 02/15/2018 09:44:00 02/15/2018 13:00:00 DIS Emergency JONNATHAN MALLOY APRN [facility] ER STOMACH PAIN; CHEST PAIN [id number] 06/09/2017 15:00:00 06/09/2017 16:58:00 DIS Emergency MOLLY ARANA [facility] ER NEEDS ANTIBIOTIC HERE LAST NIGHT FOR NOSE BLEED [id number] 06/08/2017 21:55:00 06/08/2017 23:20:00 DIS Emergency HUGH CORDOVA MD [facility] ER NOSE BLEED FOR 45 MINUTES - BLOOD THINNERS [id number] 04/29/2017 15:16:00 04/29/2017 23:59:59 CLS Outpatient SCARLET GARRETT APRN [facility] RAD M554.42 [id number] 03/28/2017 15:34:00 03/28/2017 18:53:00 DIS Emergency CARISSA ROMERO DO [facility] ER L LEG SWELLING/PAIN [id number] 01/12/2017 15:46:00 01/12/2017 17:08:00 DIS Emergency JONNATHAN MALLOY APRN [facility] ER TROUBLE BREATHING; HEAVINESS IN CHEST [id number] 11/29/2016 23:07:00 11/30/2016 02:36:00 DIS Emergency HUGH CORDOVA MD [facility] ER D/N FEVER WEAK [id number] 08/25/2016 14:30:00 08/25/2016 18:32:00 DIS Emergency JAMES PHELAN MD [facility] ER DIZZINESS/NAUSEA/ SHAKEY LEFT CALF PAIN [id number] 05/12/2016 23:38:00 05/13/2016 01:24:00 DIS Emergency CARISSA ROMERO DO [facility] ER N/V/D [id number] 02/25/2016 14:56:00 02/25/2016 23:59:59 CLS Outpatient SAIDA HAMEED MD [facility] RAD WHEEZING [id number] 08/13/2015 08:10:00 08/13/2015 23:59:59 CLS Outpatient MELLYJUAN ESTELA Katiuska ONEIL [facility] CARD CHEST PAIN, PALPITATIONS,AFIB [id number] 06/16/2015 12:33:00 06/16/2015 14:55:00 DIS Emergency SANDRITA ALVARADO MD [facility] ER SOB/COPD [id number] 04/05/2015 09:50:00 04/05/2015 12:07:00 DIS Emergency SANDRITA ALVARADO MD [facility] ER SOA [id number] 04/02/2015 12:02:00 04/04/2015 09:45:00 DIS Inpatient SAIDA HAMEED MD [facility] 4TH COPD,EXACERBATION [id number] 02/21/2015 15:46:00 02/21/2015 23:59:59 CLS Outpatient SAIDA HAMEED MD [facility] RAD BRONCHITIS [id number] 11/20/2014 23:05:00 11/22/2014 09:45:00 DIS Inpatient SAIDA HAMEED MD [facility] 4TH BLEACH FUMES EXPOSURE, COPD EXACERBATION [id number] 10/25/2014 14:21:00 10/25/2014 19:30:00 DIS Emergency JAMES PHELAN MD [facility] ER LEFT GROIN PAIN [id number] 10/13/2013 20:46:00 10/14/2013 00:44:00 DIS Emergency JULIANA HERNANDEZ DO [facility] ER L LEG PAIN; CHEST PAIN [id number] 09/25/2013 12:37:00 09/25/2013 23:59:59 CLS Outpatient TRACY JOSEPH DO [facility] RT COPD,AFIB [id number] 08/25/2013 00:35:00 08/25/2013 12:05:00 DIS Inpatient SAIDA HAMEED MD [facility] CSD CHEST PAIN, SUBTHERAPEUTIC INR [id number] 07/04/2013 11:07:00 07/04/2013 23:59:59 CLS Outpatient SAIDA HAMEED MD [facility] RAD SWELLING,PAIN [id number] 06/28/2013 16:29:00 06/28/2013 17:24:00 DIS Emergency CARISSA ROMERO DO [facility] ER VOMITING,COUGH, POST EXPOSURE TO CLOROX [id number] 05/21/2013 20:58:00 05/25/2013 10:45:00 DIS Inpatient SAIDA HAMEED MD [facility] 4TH COPD EXACERBATION; WEAKNESS [id number] 05/21/2013 13:28:00 05/21/2013 15:42:00 DIS Emergency JONNATHAN MALLOY APRN [facility] ER SOA CONGESTION R ARM PAIN [id number] 03/24/2013 17:10:00 03/25/2013 09:50:00 DIS Inpatient VIELKA MORENO MD [facility] ICU CHEST PAIN [id number] 03/01/2013 01:10:00 03/01/2013 14:29:00 DIS Inpatient SAIDA HAMEED MD [facility] 4TH ACUTE EXACERBATION OF COPD [id number] 02/13/2013 12:59:00 02/13/2013 14:18:00 DIS Emergency JONNATHAN MALLOY APRN [facility] ER LEFT LEG/GROIN PAIN [id number] 12/27/2012 13:08:00 12/27/2012 15:00:00 DIS Emergency JONNATHAN MALLOY [employer] [facility] ER RIGHT ARM NUMBNESS/LEFT THIGH KNOT [id number] 12/02/2012 08:45:00 12/02/2012 23:59:59 CLS Outpatient JAMES PHELAN MD [facility] LAB SUPRATHERAPEUTIC INR [id number] 11/30/2012 15:06:00 11/30/2012 18:11:00 DIS Emergency JAMES PHELAN MD [facility] ER SOA,HEADACHE, DIZZINESS [id number] 10/30/2012 11:45:00 10/30/2012 23:59:59 CLS Outpatient [id number] 08/20/2012 10:02:00 08/20/2012 23:59:59 [facility] [id number] 10/25/2014 14:22:00 Document Registration [id number] 10/25/2014 14:22:00 Document Registration [id number] 10/25/2014 14:21:00 Document Registration [id number] 10/25/2014 14:21:00 Document Registration [id number] 10/25/2014 14:21:00 Document Registration [id number] 10/25/2014 14:21:00 Document Registration [id number] 10/25/2014 14:21:00 Document Registration [id number] 10/25/2014 14:21:00 Document Registration [id number] 10/25/2014 14:21:00 Document Registration [id number] 07/01/2014 22:30:00 Document Registration [id number] 06/13/2012 19:15:00 Document Registration [id number] 02/23/2012 01:00:00 Document Registration [id number] 12/03/2011 00:00:00 Document Registration [id number] 11/12/2011 21:51:00 Document Registration [id number] 10/13/2011 08:28:00 Document Registration [id number] 09/03/2011 12:33:00 Document Registration [id number] 08/21/2011 20:45:00 Document Registration [id number] 03/24/2011 20:48:00 Document Registration [id number] 01/24/2011 21:19:00 Document Registration [id number] 09/28/2010 18:20:00 Document Registration [id number] 04/29/2010 21:21:00 Document Registration [id number] 02/10/2010 09:58:00 Document Registration [id number] 01/29/2010 14:43:00 Document Registration [id number] 11/25/2009 11:02:00 Document Registration [id number] 11/13/2009 23:33:00 Document Registration [id number] 10/28/2009 11:54:00 Document Registration [id number] 09/27/2009 10:28:00 Document Registration [id number] 09/20/2009 15:31:00 Document Registration [id number] 07/29/2009 13:39:00 Document Registration [id number] 07/29/2009 12:23:00 Document Registration [id number] 11/20/2014 19:15:56 ACT Document Registration [id number] 12/02/2017 15:15:00 12/02/2017 23:59:59 CLS Outpatient [facility]
--- NOTE | 2018-05-25 18:25 | ED Dyspnea ---
General Stated Complaint: SOB Source of Information: Patient Exam Limitations: No Limitations (JONNATHAN CUENCA APRN) History of Present Illness Date Seen by Provider: May 25, 2018 Time Seen by Provider: 18:23 Initial Comments To ER with c/o 4-5 day history of progressively worsening dyspnea on exertion, headache, productive cough. Was seen at [facility] and given RX for promethazine/codeine but it was $26 and she could not afford it. She also ran out of her albuterol for nebulizer. Timing/Duration: 1 Week, Increasing Severity: Moderate Activities at Onset: None Associated Symptoms: Wheezing (JONNATHAN CUENAC APRN) Allergies and Home Medications Allergies Coded Allergies: No Known Drug Allergies (Verified , 04/02/15) Home Medications Albuterol Sulfate 2.5 Mg/3 Ml Vial.neb, 2.5 MG INH Q4H PRN for SHORTNESS OF BREATH Prescribed by: JAYDEN WELCH on 05/25/181909 Apixaban 5 Mg Tablet, 5 MG PO DAILY, (Reported) Aspirin 81 Mg Tablet.dr, 81 MG PO DAILY, (Reported) Cefdinir 300 Mg Capsule, 300 MG PO BID Prescribed by: JAMES PHELAN on 02/23/18 162 Citalopram Hydrobromide 40 Mg Tablet, 40 MG PO DAILY, (Reported) Furosemide 40 Mg Tablet, 40 MG PO DAILY, (Reported) Hydrocodone/Acetaminophen 1 Each Tablet, 1 TAB PO Q6H PRN for PAIN-MODERATE, ( Reported) Hydrocodone/Acetaminophen 1 Each Tablet, 1 EACH PO Q6H PRN for PAIN-MODERATE Prescribed by: JAMES PHELAN on 02/23/181625 Levothyroxine Sodium 25 Mcg Tablet, 25 MCG PO DAILY, (Reported) Meclizine HCl 25 Mg Tablet, 25 MG PO TID PRN for DIZZINESS, (Reported) Metoprolol Succinate 50 Mg Tab.er.24h, 50 MG PO DAILY, (Reported) Metronidazole 500 Mg Tablet, 500 MG PO TID, (Reported) 7 DAY THERAPY FILLED 02-15-18 Multivit-Min/FA/Lycopene/Lut 1 Each Tablet, 1 TAB PO DAILY, (Reported) Ondansetron 8 Mg Tab.rapdis, 8 MG PO Q6H PRN for NAUSEA/VOMITING-1ST LINE, ( Reported) Potassium Chloride 20 Meq Tab.er.prt, 20 MEQ PO DAILY, (Reported) Prednisone 20 Mg Tab, 20 MG PO DAILY Take 3 tablets once daily for 3 days; then 2 tablets once daily for 3 days; then 1 tablet once daily for 3 days. Prescribed by: JAYDEN WELCH on 05/25/181909 Simvastatin 20 Mg Tablet, 20 MG PO DAILY, (Reported) LAST FILLED #90 10-21-17 Sulfamethoxazole/Trimethoprim 1 Each Tablet, 1 TAB PO BID, (Reported) 7 DAY THERAPY FILLED 02-15-18 Patient Home Medication List Home Medication List Reviewed: Yes (JONNATHAN CUENCA APRN) Home Medication List Reviewed: Yes (JAYDEN WELCH) Review of Systems Review of Systems Constitutional: see HPI EENTM: see HPI Respiratory: see HPI, cough, short of breath, wheezing Cardiovascular: no symptoms reported Genitourinary: no symptoms reported Musculoskeletal: no symptoms reported Skin: no symptoms reported Psychiatric/Neurological: No Symptoms Reported (JONNATHAN CUENCA APRN) All Other Systems Reviewed Negative Unless Noted: Yes (JAYDEN WELCH) Past Ecnflec-Heiehh-Wmhflf Hx Past Med/Social Hx: Reviewed Nursing Past Med/Soc Hx (JAYDEN WELCH) Patient Social History 2nd Hand Smoke Exposure: No Recent Foreign Travel: No Contact w/Someone Who Travel: No Recent Hopitalizations: No (JONNATHAN CUENCA APRN) Immunizations Up To Date Tetanus Booster (TDap): Unknown PED Vaccines UTD: No Date of Pneumonia Vaccine: Apr 26, 2012 Date of Influenza Vaccine: Feb 24, 2015 (JONNATHAN CUENCA APRN) Seasonal Allergies Seasonal Allergies: No (JONNATHAN CUENCA APRN) Past Medical History Surgeries: Yes (BILATERAL LEG VEIN STRIPPING ; MULTIPLE CARDIAC CATHS; LEFT WRIST REPAIR) Appendectomy, Cardiac, Ear Surgery, Hysterectomy, Orthopedic, Tubal Ligation, Vascular Surgery Respiratory: Yes Asthma, Pneumonia, Chronic Bronchitis, Sleep Apnea, COPD Currently Using CPAP: No Currently Using BIPAP: No Cardiac: Yes ([place] 2004; VARICOSE VEINS) Atrial Fibrillation, Coronary Artery Disease, Heart Attack, High Cholesterol, Hypertension, Irregular Heartbeat, Peripheral Vascular Neurological: Yes Headaches /Migraines 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 Disorders: No Female 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 ROUTE V[employer]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 History: Hysterectomy, Menopausal Sexually Transmitted Disease: No HIV/AIDS: No Genitourinary: No Gastrointestinal: No Musculoskeletal: Yes ("PLATE IN LEFT WRIST"--NARCOTIC DEPENDENT) Arthritis, Chronic Back Pain, Fractures Endocrine: Yes Hypothyroidsim Loss of Vision: Denies Hearing Impairment: Denies Cancer: No Psychosocial: Yes Anxiety, Bipolar, Depression Integumentary: No Blood Disorders: No Adverse Reaction/Blood Tranf: No (JONNATHAN CUENCA APRN) Family Medical History Cancer 03 MOTHER, Onset:60 years & older son, Onset:10's - 15 Dementia 03 MOTHER, Onset:60 years & older Family history: Alzheimer's disease 03 MOTHER, Onset:60 years & older Family history: Hypertension 09 BROTHER, Onset:30's - 40 Family history: Thyroid disorder daughter, Onset:20's - 25 History of - respiratory disease 09 BROTHER, Onset: No Pertinent Family Hx (JONNATHAN CUENCA APRN) Physical Exam Vital Signs Vital Signs - First Documented 05/25/18 18:15 Temp 97.9 Pulse 73 Resp 22 B/P (MAP) 142/79 (100) Pulse Ox 98 O2 Delivery Nasal Cannula (JAYDEN WELCH) Vital Signs Capillary Refill : (JONNATHAN CUENCA APRN) Height, Weight, BMI Height: 5'10.00" Weight: 289lbs. 0.0oz. 131.783981yf; 41.6 BMI Method:Stated General Appearance: No Apparent Distress, WD/WN HEENT: PERRL/EOMI, TMs Normal Neck: Full Range of Motion, Normal Inspection Respiratory: No Respiratory Distress, Wheezing Cardiovascular: Regular Rate, Rhythm, Normal Peripheral Pulses Gastrointestinal: Non Tender, Soft Extremity: Normal Capillary Refill, Normal Inspection Neurologic/Psychiatric: Alert, Oriented x3 Skin: Normal Color, Warm/Dry (JONNATHAN CUENCA APRN) Progress/Results/Core Measures Results/Orders Lab Results Laboratory Tests Test 05/25/18 18:25 Range/Units White Blood Count 4.1 L 4.3-11.0 10^3/uL Red Blood Count 4.79 4.35-5.85 10^6/uL Hemoglobin 14.1 11.5-16.0 G/DL Hematocrit 43 35-52 % Mean Corpuscular Volume 90 80-99 FL Mean Corpuscular Hemoglobin 29 25-34 PG Mean Corpuscular Hemoglobin Concent 33 32-36 G/DL Red Cell Distribution Width 14.2 10.0-14.5 % Platelet Count 203 130-400 10^3/uL Mean Platelet Volume 9.6 7.4-10.4 FL Neutrophils (%) (Auto) 43 42-75 % Lymphocytes (%) (Auto) 36 12-44 % Monocytes (%) (Auto) 12 0-12 % Eosinophils (%) (Auto) 8 0-10 % Basophils (%) (Auto) 1 0-10 % Neutrophils # (Auto) 1.7 L 1.8-7.8 X 10^3 Lymphocytes # (Auto) 1.5 1.0-4.0 X 10^3 Monocytes # (Auto) 0.5 0.0-1.0 X 10^3 Eosinophils # (Auto) 0.3 0.0-0.3 10^3/uL Basophils # (Auto) 0.0 0.0-0.1 10^3/uL Sodium Level 143 135-145 MMOL/L Potassium Level 3.6 3.6-5.0 MMOL/L Chloride Level 102 98-107 MMOL/L Carbon Dioxide Level 30 21-32 MMOL/L Anion Gap 11 5-14 MMOL/L Blood Urea Nitrogen 9 7-18 MG/DL Creatinine 0.92 0.60-1.30 MG/DL Estimat Glomerular Filtration Rate > 60 BUN/Creatinine Ratio 10 Glucose Level 98 70-105 MG/DL Calcium Level 9.5 8.5-10.1 MG/DL B-Type Natriuretic Peptide 154.4 H <100.0 PG/ML (JAYDEN WELCH) Medications Given in ED Current Medications Medications Dose Ordered Sig/Brianna Route Start Time Stop Time Status Last Admin Dose Admin Albuterol/ Ipratropium 3 ml ONCE ONCE INH 05/25/18 18:30 05/25/18 18:31 DC 05/25/18 18:20 3 ML Ketorolac Tromethamine 60 mg ONCE ONCE IM 05/25/18 18:30 05/25/18 18:31 DC 05/25/18 18:20 60 MG Prednisone 60 mg ONCE ONCE PO 05/25/18 18:30 05/25/18 18:31 DC 05/25/18 18:33 60 MG (JAYDEN WELCH) Vital Signs/I&O 05/25/18 05/25/18 18:15 19:49 Temp 97.9 98.5 Pulse 73 75 Resp 22 20 B/P (MAP) 142/79 (100) 148/79 (102) Pulse Ox 98 95 O2 Delivery Nasal Cannula (JAYDEN WELCH) Progress Progress Note : Progress Note 1844 Assumed care of patient from Jonnathan Cuenca APRN. Lung sounds with continued wheezing and trace rhonchi throughout. Patient reports mild improvement. Awaiting labs and cxr. 1899 Labs and Chest X-ray essentially normal. Discussed results with the patient , recommended discharge to home with albuterol every 4 hours, continue cefdinir and begin tapering prednisone dose. Discharge instructions and return precautions reviewed with her. All questions answered. (JAYDEN WELCH) Diagnostic Imaging Diagonstic Imaging: Xray Plain Films/CT/US/NM/MRI: chest Comments NAME: PEYMAN MENDOZA MED REC#: [id number] PHYSICIAN: JONNATHAN CUENCA APRN CC: JONNATHAN CUENCA APRN; JAMES MCKENZIE MD Page 1 of 1 RADIOLOGY REPORT [facility] [place] CC: JONNATHAN CUENCA APRN; JAMES MCKENZIE MD Page 1 of 1 RADIOLOGY REPORT NAME: PEYMAN MENDOZA MED REC#: [id number] PT STATUS: REG ER : 1955 PHYSICIAN: JONNATHAN CUENCA APRN ADMIT DATE: 05/25/18/ER Signed Date of Exam: 05/25/18 CHEST PA/LAT (2 VIEW) INDICATION: Shortness of breath PA and lateral chest Heart size and pulmonary vascularity are normal. Lungs are clear. There are no effusions or pneumothoraces. IMPRESSION: Negative chest Dictated by: Dictated on workstation # [id number] Dict: 05/25/181855 Trans: 05/25/181904 Interpreted by: JAMES MCKENZIE MD Electronically signed by: JAMES MCKENZIE MD 05/25/181904 Reviewed: Reviewed by Me (JAYDEN WELCH) Departure Impression Primary Impression: Acute exacerbation of chronic obstructive airways disease Additional Impression: Bronchitis, acute Qualified Codes: J20.9 - Acute bronchitis, unspecified Disposition: 01 HOME, SELF-CARE Condition: Improved (ERASED) Departure-Patient Inst. Decision time for Depature: 18:43 (JONNATHAN CUENCA APRN) Referrals: SAIDA GEORGES MD (PCP/Family) Primary Care Physician Patient Instructions: Chronic Bronchitis (DC), Acute Bronchitis, Adult (DC) Add. Discharge Instructions: Continue taking the Cefdnir. Take the Prednisone, as prescribed. Use an albuterol nebulized treatment every 4 hours. Get Muccinex, over the counter, take 1 every 8 hours with full glass of water. Increase rest. You may alternate between Tylenol 650 mg and Ibuprofen 600 mg every 4 hours for fever or generalized discomfort. If you do not feel improvement tomorrow, follow up with Dr. Georges or the [facility]. If you note some improvement but not 100%, follow up Wednesday. Return to the emergency department for worsening of her shortness of breath that is not relieved by albuterol, fever greater than 101 not relieved by Tylenol and ibuprofen, or new concerns. Scripts Prednisone (Prednisone) 20 Mg Tab 20 MG PO DAILY, #18 TAB 0 Refills Take 3 tablets once daily for 3 days; then 2 tablets once daily for 3 days; then 1 tablet once daily for 3 days. Prov: JAYDEN WELCH 05/25/18 Albuterol Sulfate (Albuterol Sulfate) 2.5 Mg/3 Ml Vial.neb 2.5 MG INH Q4H PRN for SHORTNESS OF BREATH, #25 EA 2 Refills Prov: JAYDEN WELCH 05/25/18 Copy Copies To 1: SAIDA GEORGES MD, PETER J APRN May 25, 2018 18:25 JAYDEN WELCH May 25, 2018 19:02
[2018-05-25] MEDS ORDERED: RT-ALBUTEROL/IPRATROPIUM 3 ML (DUONEB) VIAL INH ONE (18:30)
[2018-05-25] MEDS ORDERED: predniSONE 20 MG TAB PO ONE (18:30)
[2018-05-25] MEDS ORDERED: KETOROLAC 60 MG/2 ML VIAL IM ONE (18:30)
[2018-05-25 18:38] LABS: BASOPHILS % (AUTO) 1 % (0-10); EOSINOPHILS # (AUTO) 0.3 10^3/uL (0.0-0.3); EOSINOPHILS % (AUTO) 8 % (0-10); HEMATOCRIT 43 % (35-52); HEMOGLOBIN 14.1 G/DL (11.5-16.0); LYMPHOCYTES # (AUTO) 1.5 X 10^3 (1.0-4.0); LYMPHOCYTES % (AUTO) 36 % (12-44); MEAN CORPUSCULAR HEMOGLOBIN 29 PG (25-34); MEAN CORPUSCULAR HGB CONC 33 G/DL (32-36); MEAN CORPUSCULAR VOLUME 90 FL (80-99); MEAN PLATELET VOLUME 9.6 FL (7.4-10.4); MONOCYTES # (AUTO) 0.5 X 10^3 (0.0-1.0); MONOCYTES % (AUTO) 12 % (0-12); NEUTROPHILS # (AUTO) 1.7 X 10^3 (1.8-7.8); NEUTROPHILS % (AUTO) 43 % (42-75); PLATELET COUNT 203 10^3/uL (130-400); RED CELL DISTRIBUTION WIDTH 14.2 % (10.0-14.5); WHITE BLOOD COUNT 4.1 10^3/uL (4.3-11.0)
[2018-05-25 18:50] LABS: BUN/CREATININE RATIO 10; CALCIUM 9.5 MG/DL (8.5-10.1); CARBON DIOXIDE 30 MMOL/L (21-32); CHLORIDE 102 MMOL/L (98-107); CREATININE SERUM 0.92 MG/DL (0.60-1.30); GFR ESTIMATED > 60; GLUCOSE 98 MG/DL (70-105); POTASSIUM 3.6 MMOL/L (3.6-5.0); SODIUM 143 MMOL/L (135-145)
--- NOTE | 2018-05-25 18:59 | Diagnostic Imaging Report ---
INDICATION: Shortness of breath PA and lateral chest Heart size and pulmonary vascularity are normal. Lungs are clear. There are no effusions or pneumothoraces. IMPRESSION: Negative chest Dictated by: Dictated on workstation # [id number]
[2018-05-25] MEDS ORDERED: ALBU2.5V4 INH (19:10)
[2018-05-25] MEDS ORDERED: PRD20T PO (19:10)
[2018-05-25 19:49] VITALS: BP 148/79
== END 2018-05-25 19:49 | disposition home or self-care (01) ==
LOC: EDUNIT# 18:10 → ER 18:11
DX: J44.1 Chronic obstructive pulmonary disease with (acute) exacerbation (principal); J44.0 Chronic obstructive pulmonary disease with (acute) lower respiratory infection; J20.9 Acute bronchitis, unspecified; G47.30 Sleep apnea, unspecified; I25.2 Old myocardial infarction; I48.91 Unspecified atrial fibrillation; I25.10 Atherosclerotic heart disease of native coronary artery without angina pectoris; E78.00 Pure hypercholesterolemia, unspecified; I10 Essential (primary) hypertension; I73.9 Peripheral vascular disease, unspecified; G43.909 Migraine, unspecified, not intractable, without status migrainosus; E03.9 Hypothyroidism, unspecified; F31.9 Bipolar disorder, unspecified; F41.9 Anxiety disorder, unspecified; Z82.49 Family history of ischemic heart disease and other diseases of the circulatory system; Z87.09 Personal history of other diseases of the respiratory system; Z79.51 Long term (current) use of inhaled steroids; Z79.01 Long term (current) use of anticoagulants; Z79.82 Long term (current) use of aspirin; Z79.52 Long term (current) use of systemic steroids; Z90.49 Acquired absence of other specified parts of digestive tract; Z98.890 Other specified postprocedural states; Z98.51 Tubal ligation status; Z90.710 Acquired absence of both cervix and uterus; Z87.01 Personal history of pneumonia (recurrent)
CPT/HCPCS: 36415; 71046; 80048; 83880; 85025

== ENCOUNTER 2018-05-31 15:49 | Emergency (ER) | payer MEDICARE, MEDICAID ==
[~2018-05-31] VITALS: Ht 177.8 cm; Wt 133.8 kg
[~2018-05-31 15:49] MED LIST changes: +ALBU2.5V4 INH
--- OUTSIDE RECORDS SUMMARY | 2018-05-31 16:00 | XMS REPORT | Continuity of Care Document ---
Author Author [facility] Organization [facility] Address Unknown Phone Unavailable Allergies Active Description Code Type Severity Reaction Onset Reported/Identified Relationship to Patient Clinical Status Yes NKDA NKDA Mild N/ A 10/13/2008 Yes No Known Drug Allergies [id number] Drug Allergy Unknown N/A 04/02/2015 Medications There [...] INFARCT 09/29/2010 Ot 414.01 CORONARY ATHEROSCLEROSIS OF [place] CORON 09/29/2010 Ot 427.31 ATRIAL FIBRILLATION 09/29/2010 [...] Ot 729.5 PAIN IN LIMB 03/01/2013 SAIDA HMAEED MD Ot 244.9 HYPOTHYROIDISM NOS 03/01/2013 SAIDA [...] 786.05 SHORTNESS OF BREATH 05/21/2013 JONNATHAN MALLOY [employer] RADIO MECHANIC Ot V58.61 ANTICOAGULANTS,LT,CURRENT USE 05/21/2013 JONNATHAN MALLOY [...] MD Ot V58.61 ANTICOAGULANTS,LT,CURRENT USE 05/25/2013 SAIDA HAMEDE MD Ot V58.69 OTH MED,LT,CURRENT USE 06/28/2013 [...] PULMONARY DISEASE W 08/14/2015 BAIMA, ESTELA L [employer] SERVICER Ot G47.30 SLEEP APNEA, UNSPECIFIED 08/14/2015 BAIMA, ESTELA L [employer] SERVICER Ot I48.91 UNSPECIFIED ATRIAL FIBRILLATION 08/14/2015 BAIMA, ESTELA L [employer] SERVICER Ot J44.9 CHRONIC OBSTRUCTIVE PULMONARY DISEASE, U 08/14/2015 BAIMA, ESTELA L [employer] SERVICER Ot R06.00 DYSPNEA, UNSPECIFIED 08/14/2015 BAIMA, ESTELA L [employer] SERVICER Ot R07.9 CHEST PAIN, UNSPECIFIED 08/14/2015 BAIMA, ESTELA L [employer] SERVICER Ot Z79.01 NETWORK OPERATIONS MANAGER (CURRENT) USE OF ANTICOAGULANT 09/03/2015 BAIMA, ESTELA L [employer] SERVICER Ot G47.30 SLEEP APNEA, UNSPECIFIED 09/03/2015 BAIMA, ESTELA L [employer] SERVICER Ot I48.91 UNSPECIFIED ATRIAL FIBRILLATION 09/03/2015 BAIMA, ESTELA L [employer] SERVICER Ot J44.9 CHRONIC OBSTRUCTIVE PULMONARY DISEASE, U 09/03/2015 BAIMA, ESTELA L [employer] SERVICER Ot R06.00 DYSPNEA, UNSPECIFIED 09/03/2015 BAIMA, ESTELA L [employer] SERVICER Ot R07.9 CHEST PAIN, UNSPECIFIED 09/03/2015 BAIMA, ESTELA L [employer] SERVICER Ot Z79.01 NETWORK OPERATIONS MANAGER (CURRENT) USE OF ANTICOAGULANT 09/20/2015 MELLYMA ESTELA L [employer] SERVICER Ot G47.30 SLEEP APNEA, UNSPECIFIED 09/20/2015 BAIMA ESTELA L [employer] SERVICER Ot I48.91 UNSPECIFIED ATRIAL FIBRILLATION 09/20/2015 MELLYMALUIGIESTELA L [employer] SERVICER Ot J44.9 CHRONIC OBSTRUCTIVE PULMONARY DISEASE, U 09/20/2015 MELLYLUIGI MARTINEZHER L [employer] SERVICER Ot R06.00 DYSPNEA, UNSPECIFIED 09/20/2015 BAIMA, ESTELA L [employer] SERVICER Ot R07.9 CHEST PAIN, UNSPECIFIED 09/20/2015 BAIMALUIGIESTELA L [employer] SERVICER Ot Z79.01 CORRECTION (CURRENT) USE OF ANTICOAGULANT 02/25/2016 Ot 709.9 [...] ACUTE OR CH 02/25/2016 RITA ESTELA L [employer] SERVICER Ot G47.30 SLEEP APNEA, UNSPECIFIED 02/25/2016 MELLYMA ESTELA L [employer] SERVICER Ot I48.91 UNSPECIFIED ATRIAL FIBRILLATION 02/25/2016 MELLYJUAN ESTELA L [employer] SERVICER Ot J44.9 CHRONIC OBSTRUCTIVE PULMONARY DISEASE, U 02/25/2016 MELLYMA ESTELA L [employer] SERVICER Ot R06.00 DYSPNEA, UNSPECIFIED 02/25/2016 MELLYMA ESTELA L [employer] SERVICER Ot R07.9 CHEST PAIN, UNSPECIFIED 02/25/2016 ESTELA SALINAS [employer] SERVICER Ot Z79.01 NETWORK OPERATIONS MANAGER (CURRENT) USE OF ANTICOAGULANT 02/26/2016 [...] SPECIFIED ACUTE OR CH 03/03/2016 ESTELA SALINAS [employer] SERVICER Ot G47.30 SLEEP APNEA, UNSPECIFIED 03/03/2016 ESTELA SALINAS [employer] SERVICER Ot I48.91 UNSPECIFIED ATRIAL FIBRILLATION 03/03/2016 ESTELA SALINAS [employer] SERVICER Ot J44.9 CHRONIC OBSTRUCTIVE PULMONARY DISEASE, U 03/03/2016 ESTELA SALINAS [employer] SERVICER Ot R06.00 DYSPNEA, UNSPECIFIED 03/03/2016 ESTELA SALINAS [employer] SERVICER Ot R07.9 CHEST PAIN, UNSPECIFIED 03/03/2016 ESTELA SALINAS [employer] SERVICER Ot Z79.01 CORRECTION (CURRENT) USE OF ANTICOAGULANT 03/03/2016 SAIDA HAMEED [...] UNSPECIFIED 05/13/2016 NICK DODEANNAA K Ot Z79.82 CORRECTION (CURRENT) USE OF ASPIRIN 05/13/2016 NICK DO CARISSA K Ot Z79.891 CORRECTION (CURRENT) USE OF OPIATE ANALGE 05/13/2016 NICK DO CARISSA K Ot Z79.899 OTHER CORRECTION (CURRENT) DRUG THERAPY 05/14/2016 NICK DODEANNAA K [...] 05/14/2016 NICK DO CARISSA K Ot Z79.82 NETWORK OPERATIONS MANAGER (CURRENT) USE OF ASPIRIN 05/14/2016 NICK DO CARISSA K Ot Z79.891 NETWORK OPERATIONS MANAGER (CURRENT) USE OF OPIATE ANALGE 05/14/2016 NICK DEANNA SALAZARA K Ot Z79.899 OTHER CORRECTION (CURRENT) DRUG THERAPY 08/25/2016 Ot 709.9 SKIN [...] SPECIFIED ACUTE OR CH 08/25/2016 MELLYMAESTELA L [employer] SERVICER Ot G47.30 SLEEP APNEA, UNSPECIFIED 08/25/2016 BAIMA ESTELA L [employer] SERVICER Ot I48.91 UNSPECIFIED ATRIAL FIBRILLATION 08/25/2016 ESTELA SALINAS L [employer] SERVICER Ot J44.9 CHRONIC OBSTRUCTIVE PULMONARY DISEASE, U 08/25/2016 ESTELA SALINAS L [employer] SERVICER Ot R06.00 DYSPNEA, UNSPECIFIED 08/25/2016 MELLYMAESTELA L [employer] SERVICER Ot R07.9 CHEST PAIN, UNSPECIFIED 08/25/2016 ESTELA SALINAS L [employer] SERVICER Ot Z79.01 CORRECTION (CURRENT) USE OF ANTICOAGULANT 08/25/2016 SAIDA HAMEED MD Ot R06.2 WHEEZING 08/25/2016 Ot V58.61 ANTICOAGULANTS,LT,CURRENT USE 08/25/2016 Ot V58.83 ENCOUNTER FOR THERAPEUTIC DRUG MONITORIN 08/25/2016 JAMES PHELAN MD Ot I10 ESSENTIAL (PRIMARY) HYPERTENSION 08/25/2016 JAMES PHELAN MD Ot I25.10 ATHSCL HEART DISEASE OF [place] CORONARY 08/25/2016 JAMES PHELAN MD Ot J44.9 CHRONIC OBSTRUCTIVE PULMONARY DISEASE, U 08/25/2016 JAMES PHELAN MD Ot M79.662 PAIN IN LEFT LOWER LEG 08/25/2016 JAMES PHELAN MD Ot R07.9 CHEST PAIN, UNSPECIFIED 08/25/2016 JAMES PHELAN MD Ot R42 DIZZINESS AND GIDDINESS 08/25/2016 JAMES PHELAN MD Ot Z79.899 OTHER CORRECTION (CURRENT) DRUG THERAPY 08/26/2016 JAMES PHELAN MD Ot I10 ESSENTIAL (PRIMARY) HYPERTENSION 08/26/2016 JAMES PHELAN MD Ot I25.10 ATHSCL HEART DISEASE OF [place] CORONARY 08/26/2016 JAMES PHELAN MD, Ot J44.9 CHRONIC OBSTRUCTIVE PULMONARY DISEASE, U 08/26/2016 JAMES PHELAN MD Ot M79.662 PAIN IN LEFT LOWER LEG 08/26/2016 JAMES PHELAN MD Ot R07.9 CHEST PAIN, UNSPECIFIED 08/26/2016 JAMES PHELAN MD, Ot R42 DIZZINESS AND GIDDINESS 08/26/2016 JAMES PHELAN MD, Ot Z79.899 OTHER NETWORK OPERATIONS MANAGER (CURRENT) DRUG THERAPY 11/30/2016 HUGH [...] MD Ot I25.10 ATHSCL HEART DISEASE OF [place] CORONARY 11/30/2016 HUGH CORDOVA MD Ot I25.2 [...] UNSPECIFIED 11/30/2016 HUGH CORDOVA MD Ot Z79.01 CORRECTION (CURRENT) USE OF ANTICOAGULANT 11/30/2016 HUGH CORDOVA MD Ot Z79.82 CORRECTION (CURRENT) USE OF ASPIRIN 11/30/2016 HUGH CORDOVA [...] MD Ot I25.10 ATHSCL HEART DISEASE OF [place] CORONARY 11/30/2016 HUGH CORDOVA MD Ot I25.2 [...] UNSPECIFIED 11/30/2016 HUGH CORDOVA MD, Ot Z79.01 CORRECTION (CURRENT) USE OF ANTICOAGULANT 11/30/2016 HUGH CORDOVA MD, Ot Z79.82 NETWORK OPERATIONS MANAGER (CURRENT) USE OF ASPIRIN 11/30/2016 [...] APRN Ot I25.10 ATHSCL HEART DISEASE OF [place] CORONARY 01/12/2017 JONNATHAN MALLOY APRN Ot I25.2 OLD MYOCARDIAL INFARCTION 01/12/2017 JONNATHAN MALLOY APRN Ot I48.91 UNSPECIFIED ATRIAL FIBRILLATION 01/12/2017 JONNATHAN MALLOY APRN Ot J45.909 UNSPECIFIED ASTHMA, UNCOMPLICATED 01/12/2017 JONNATHAN MALLOY APRN Ot K21.9 GASTRO-ESOPHAGEAL REFLUX DISEASE WITHOUT 01/12/2017 JONNATHAN MALLOY APRN Ot R06.00 DYSPNEA, UNSPECIFIED 01/12/2017 JONNATHAN MALLOY APRN Ot Z79.82 NETWORK OPERATIONS MANAGER (CURRENT) USE OF ASPIRIN 01/12/2017 JONNATHAN MALLOY APRN Ot Z87.81 PERSONAL HISTORY OF (HEALED) TRAUMATIC F 01/12/2017 JONNATHAN MALLOY APRN Ot Z90.710 ACQUIRED ABSENCE OF BOTH CERVIX AND UTER 01/12/2017 JONNATHAN MALLOY APRN Ot Z98.51 TUBAL LIGATION STATUS 01/14/2017 JONNATHAN MALLOY APRN Ot E03.9 HYPOTHYROIDISM, UNSPECIFIED 01/14/2017 JONNATHAN MALLOY APRN Ot E78.00 PURE HYPERCHOLESTEROLEMIA, UNSPECIFIED 01/14/2017 JONNATHAN MALOLY APRN Ot F31.9 BIPOLAR DISORDER, UNSPECIFIED 01/14/2017 JONNATHAN MALLOY APRN Ot F41.9 ANXIETY DISORDER, UNSPECIFIED 01/14/2017 JONNATHAN MALLOY APRN Ot G43.909 MIGRAINE, UNSP, NOT INTRACTABLE, WITHOUT 01/14/2017 JONNATHAN MALLOY APRN Ot I10 ESSENTIAL (PRIMARY) HYPERTENSION 01/14/2017 JONNATHAN MALLOY APRN Ot I25.10 ATHSCL HEART DISEASE OF [place] CORONARY 01/14/2017 JONNATHAN MALLOY APRN Ot I25.2 OLD MYOCARDIAL INFARCTION 01/14/2017 JONNATHAN MALLOY APRN Ot I48.91 UNSPECIFIED ATRIAL FIBRILLATION 01/14/2017 JONNATHAN MALLOY APRN Ot J45.909 UNSPECIFIED ASTHMA, UNCOMPLICATED 01/14/2017 JONNATHAN MALLOY APRN Ot K21.9 GASTRO-ESOPHAGEAL REFLUX DISEASE WITHOUT 01/14/2017 JONNATHAN MALLOY APRN Ot R06.00 DYSPNEA, UNSPECIFIED 01/14/2017 JONNATHAN MALLOY APRN Ot Z79.82 CORRECTION (CURRENT) USE OF ASPIRIN 01/14/2017 JONNATHAN MALLOY [...] APRN Ot I25.10 ATHSCL HEART DISEASE OF [place] CORONARY 01/18/2017 JONNATHAN MALLOY APRN Ot I25.2 OLD MYOCARDIAL INFARCTION 01/18/2017 JONNATHAN MALLOY APRN Ot I48.91 UNSPECIFIED ATRIAL FIBRILLATION 01/18/2017 JONNATHAN MALLOY APRN Ot J45.909 UNSPECIFIED ASTHMA, UNCOMPLICATED 01/18/2017 JONNATHAN MALLOY APRN Ot K21.9 GASTRO-ESOPHAGEAL REFLUX DISEASE WITHOUT 01/18/2017 JONNATHAN MALLOY APRN Ot R06.00 DYSPNEA, UNSPECIFIED 01/18/2017 JONNATHAN MALLOY APRN Ot Z79.82 NETWORK OPERATIONS MANAGER (CURRENT) USE OF ASPIRIN 01/18/2017 [...] K Ot I25.10 ATHSCL HEART DISEASE OF [place] CORONARY 03/28/2017 CARISSA ROMERO DO Ot I25.2 [...] KNEE 03/28/2017 CARISSA ROMERO DO Ot Z79.01 CORRECTION (CURRENT) USE OF ANTICOAGULANT 03/28/2017 CARISSA ROMERO DO Ot Z79.82 CORRECTION (CURRENT) USE OF ASPIRIN 03/28/2017 CARISSA ROMERO [...] DO Ot I25.10 ATHSCL HEART DISEASE OF [place] CORONARY 03/31/2017 CARISSA ROMERO DO Ot I25.2 [...] 03/31/2017 NICK SALAZAR CARISSA Roberto Ot Z79.01 NETWORK OPERATIONS MANAGER (CURRENT) USE OF ANTICOAGULANT 03/31/2017 NICK SALAZAR CARISSA K Ot Z79.82 CORRECTION (CURRENT) USE OF ASPIRIN 03/31/2017 NICK SALAZAR [...] MD Ot I25.10 ATHSCL HEART DISEASE OF [place] CORONARY 06/08/2017 HUGH CORDOVA MD, Ot I25.2 OLD MYOCARDIAL INFARCTION 06/08/2017 HUGH CORDOVA MD, Ot I48.91 UNSPECIFIED ATRIAL FIBRILLATION 06/08/2017 HUGH CORDOVA MD, Ot I73.9 PERIPHERAL VASCULAR DISEASE, UNSPECIFIED 06/08/2017 HUGH CORDOVA MD, Ot J44.9 CHRONIC OBSTRUCTIVE PULMONARY DISEASE, U 06/08/2017 HUGH CORDOVA MD Ot R04.0 EPISTAXIS 06/08/2017 HUGH CORDOVA MD, Ot Z79.01 CORRECTION (CURRENT) USE OF ANTICOAGULANT 06/08/2017 HUGH CORDOVA MD, Ot Z79.82 NETWORK OPERATIONS MANAGER (CURRENT) USE OF ASPIRIN 06/08/2017 [...] ARANA Ot I25.10 ATHSCL HEART DISEASE OF [place] CORONARY 06/09/2017 MOLLY ARANA Ot I25.2 OLD MYOCARDIAL INFARCTION 06/09/2017 MOLLY ARANA Ot I48.91 UNSPECIFIED ATRIAL FIBRILLATION 06/09/2017 MOLLY ARANA Ot I73.9 PERIPHERAL VASCULAR DISEASE, UNSPECIFIED 06/09/2017 MOLLY ARANA Ot J34.89 OTHER SPECIFIED DISORDERS OF NOSE AND NA 06/09/2017 MOLLY ARANA Ot J45.909 UNSPECIFIED ASTHMA, UNCOMPLICATED 06/09/2017 MOLLY ARANA Ot R04.0 EPISTAXIS 06/09/2017 MOLLY ARANA Ot Z79.01 NETWORK OPERATIONS MANAGER (CURRENT) USE OF ANTICOAGULANT 06/09/2017 MOLLY ARANA Ot Z79.82 CORRECTION (CURRENT) USE OF ASPIRIN 06/09/2017 MOLLY ARANA Ot Z87.01 PERSONAL HISTORY OF PNEUMONIA (RECURRENT 06/09/2017 MOLLY ARANA Ot Z87.09 PERSONAL HISTORY OF OTHER DISEASES OF TH 06/09/2017 MOLLY ARNAA Ot Z90.49 ACQUIRED ABSENCE OF OTHER SPECIFIED [...] MD Ot I25.10 ATHSCL HEART DISEASE OF [place] CORONARY 06/10/2017 HUGH CORDOVA MD Ot I25.2 OLD MYOCARDIAL INFARCTION 06/10/2017 HUGH CORDOVA MD Ot I48.91 UNSPECIFIED ATRIAL FIBRILLATION 06/10/2017 HUGH CORDOVA MD Ot I73.9 PERIPHERAL VASCULAR DISEASE, UNSPECIFIED 06/10/2017 HUGH CORDOVA MD, Ot J44.9 CHRONIC OBSTRUCTIVE PULMONARY DISEASE, U 06/10/2017 HUGH CORDOVA MD Ot R04.0 EPISTAXIS 06/10/2017 HUGH CORDOVA MD, Ot Z79.01 CORRECTION (CURRENT) USE OF ANTICOAGULANT 06/10/2017 HUGH CORDOVA MD Ot Z79.82 CORRECTION (CURRENT) USE OF ASPIRIN 06/10/2017 HUGH CORDOVA [...] ARANA Ot I25.10 ATHSCL HEART DISEASE OF [place] CORONARY 06/11/2017 MOLLY ARANA Ot I25.2 OLD MYOCARDIAL INFARCTION 06/11/2017 MOLLY ARANA Ot I48.91 UNSPECIFIED ATRIAL FIBRILLATION 06/11/2017 MOLLY ARANA Ot I73.9 PERIPHERAL VASCULAR DISEASE, UNSPECIFIED 06/11/2017 MOLLY ARANA Ot J34.89 OTHER SPECIFIED DISORDERS OF NOSE AND NA 06/11/2017 MOLLY ARANA Ot J45.909 UNSPECIFIED ASTHMA, UNCOMPLICATED 06/11/2017 MOLLY ARANA Ot R04.0 EPISTAXIS 06/11/2017 MOLLY ARANA Ot Z79.01 NETWORK OPERATIONS MANAGER (CURRENT) USE OF ANTICOAGULANT 06/11/2017 MOLLY ARANA Ot Z79.82 NETWORK OPERATIONS MANAGER (CURRENT) USE OF ASPIRIN 06/11/2017 [...] K Ot I25.10 ATHSCL HEART DISEASE OF [place] CORONARY 07/18/2017 CARISSA ROMERO DO Ot I25.2 [...] KNEE 07/18/2017 CARISSA ROMERO DO Ot Z79.01 NETWORK OPERATIONS MANAGER (CURRENT) USE OF ANTICOAGULANT 07/18/2017 CARISSA ROMERO DO Ot Z79.82 CORRECTION (CURRENT) USE OF ASPIRIN 07/18/2017 CARISSA ROMERO [...] SPECIFIED ACUTE OR CH 02/15/2018 ESTELA SALINAS [employer] SERVICER Ot G47.30 SLEEP APNEA, UNSPECIFIED 02/15/2018 ESTELA SALINAS L [employer] SERVICER Ot I48.91 UNSPECIFIED ATRIAL FIBRILLATION 02/15/2018 ESTELA SALINAS [employer] SERVICER Ot J44.9 CHRONIC OBSTRUCTIVE PULMONARY DISEASE, U 02/15/2018 ESTELA SALINAS L [employer] SERVICER Ot R06.00 DYSPNEA, UNSPECIFIED 02/15/2018 ESTELA SALINAS L [employer] SERVICER Ot R07.9 CHEST PAIN, UNSPECIFIED 02/15/2018 ESTELA SALINAS L [employer] SERVICER Ot Z79.01 NETWORK OPERATIONS MANAGER (CURRENT) USE OF ANTICOAGULANT 02/15/2018 ZARI LU, SAIDA R Ot R06.2 WHEEZING 02/15/2018 SCARLET GARRETT [employer] RADIO MECHANIC Ot M51.36 OTHER INTERVERTEBRAL DISC DEGENERATION, 02/15/2018 SCARLET GARRETT AUTO RADIO MECHANIC Ot 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 [...] APRN Ot I25.10 ATHSCL HEART DISEASE OF [place] CORONARY 02/15/2018 JONNATHAN MALLOY APRN Ot I25.2 OLD MYOCARDIAL INFARCTION 02/15/2018 JONNATHAN MALLOY APRN Ot I48.91 UNSPECIFIED ATRIAL FIBRILLATION 02/15/2018 JONNATHAN MALLOY APRN Ot J44.9 CHRONIC OBSTRUCTIVE PULMONARY DISEASE, U 02/15/2018 JONNATHAN MALLOY APRN Ot K52.9 NONINFECTIVE GASTROENTERITIS AND COLITIS 02/15/2018 JONNATHAN MALLOY APRN Ot R11.0 NAUSEA 02/15/2018 JONNATHAN MALLOY APRN Ot Z79.82 CORRECTION (CURRENT) USE OF ASPIRIN 02/15/2018 JONNATHAN MALLOY [...] APRN Ot I25.10 ATHSCL HEART DISEASE OF [place] CORONARY 02/17/2018 JONNATHAN MALLOY APRN Ot I25.2 OLD MYOCARDIAL INFARCTION 02/17/2018 JONNATHAN MALLOY APRN Ot I48.91 UNSPECIFIED ATRIAL FIBRILLATION 02/17/2018 JONNATHAN MALLOY APRN Ot J44.9 CHRONIC OBSTRUCTIVE PULMONARY DISEASE, U 02/17/2018 JONNATHAN MALLOY APRN Ot K52.9 NONINFECTIVE GASTROENTERITIS AND COLITIS 02/17/2018 JONNATHAN MALLOY APRN Ot R11.0 NAUSEA 02/17/2018 JONNATHAN MALLOY APRN Ot Z79.82 CORRECTION (CURRENT) USE OF ASPIRIN 02/17/2018 JONNATHAN MALLOY [...] MD Ot I25.10 ATHSCL HEART DISEASE OF [place] CORONARY 02/21/2018 EFRAIN PARKS MD Ot I25.2 [...] ADULT 02/21/2018 EFRAIN PARKS MD, Ot Z79.01 NETWORK OPERATIONS MANAGER (CURRENT) USE OF ANTICOAGULANT 02/21/2018 EFRAIN PARKS MD, Ot Z79.82 CORRECTION (CURRENT) USE OF ASPIRIN 02/21/2018 EFRAIN PARKS MD, Ot Z79.899 OTHER CORRECTION (CURRENT) DRUG THERAPY 02/21/2018 EFRAIN PARKS MD, Ot Z91.19 PATIENT'S NONCOMPLIANCE W [facility] 02/21/2018 EFRAIN PARKS MD, Ot E03.9 HYPOTHYROIDISM, UNSPECIFIED 02/21/2018 EFRAIN PARKS MD Ot E66.01 MORBID (SEVERE) OBESITY DUE TO EXCESS CA 02/21/2018 EFRAIN PARKS MD, Ot E78.5 HYPERLIPIDEMIA, UNSPECIFIED 02/21/2018 EFRAIN PARKS MD, Ot F32.9 MAJOR DEPRESSIVE DISORDER, SINGLE EPISOD 02/21/2018 EFRAIN PARKS MD, Ot G47.30 SLEEP APNEA, UNSPECIFIED 02/21/2018 EFRAIN PARKS MD, Ot I25.10 ATHSCL HEART DISEASE OF [place] CORONARY 02/21/2018 EFRAIN PARKS MD, Ot I25.2 [...] ADULT 02/21/2018 EFRAIN PARKS MD, Ot Z79.01 NETWORK OPERATIONS MANAGER (CURRENT) USE OF ANTICOAGULANT 02/21/2018 EFRAIN PARKS MD, Ot Z79.82 NETWORK OPERATIONS MANAGER (CURRENT) USE OF ASPIRIN 02/21/2018 EFRAIN PARKS MD, Ot Z79.899 OTHER NETWORK OPERATIONS MANAGER (CURRENT) DRUG THERAPY 02/21/2018 EFRAIN PARKS MD, Ot Z91.19 PATIENT'S NONCOMPLIANCE W [facility] TR 02/22/2018 SCARLET GARRETT APRN Ot [...] MD Ot G47.30 SLEEP APNEA, UNSPECIFIED 02/23/2018 [place] MD, JAMES D Ot I10 ESSENTIAL (PRIMARY) HYPERTENSION 02/23/2018 JAMES PHELAN MD Ot I25.10 ATHSCL HEART DISEASE OF [place] CORONARY 02/23/2018 JAMES PHELAN MD, Ot I25.2 [...] LEG 02/23/2018 JAMES PHELAN MD, Ot Z79.01 NETWORK OPERATIONS MANAGER (CURRENT) USE OF ANTICOAGULANT 02/23/2018 JAMES PHELAN MD, Ot Z79.82 CORRECTION (CURRENT) USE OF ASPIRIN 02/23/2018 JAMES PHELAN [...] MD, Ot I25.10 ATHSCL HEART DISEASE OF [place] CORONARY 02/25/2018 JAMES PHELAN MD, Ot I25.2 [...] LEG 02/25/2018 JAMES PHELAN MD, Ot Z79.01 CORRECTION (CURRENT) USE OF ANTICOAGULANT 02/25/2018 JAMES PHELAN MD, Ot Z79.82 CORRECTION (CURRENT) USE OF ASPIRIN 02/25/2018 JAMES PHELAN MD, Ot Z87.01 PERSONAL HISTORY OF PNEUMONIA (RECURRENT 02/25/2018 JAMES PHELAN MD, Ot Z90.710 ACQUIRED ABSENCE OF BOTH CERVIX AND UTER 02/25/2018 JAMES PHELAN MD, Ot Z90.89 ACQUIRED ABSENCE OF OTHER ORGANS 02/25/2018 JAMES PHELAN MD, Ot Z98.51 TUBAL LIGATION STATUS 02/25/2018 JAMES PHELAN MD, Ot Z98.890 OTHER SPECIFIED POSTPROCEDURAL STATES 03/14/2018 SCARLET GARRETT AUTO RADIO MECHANIC Ot L53.9 ERYTHEMATOUS CONDITION, UNSPECIFIED 03/14/2018 SCARLET GARRETT AUTO RADIO MECHANIC Ot M79.89 OTHER SPECIFIED SOFT TISSUE DISORDERS 03/29/2018 SCARLET GARRETT AUTO RADIO MECHANIC Ot L53.9 ERYTHEMATOUS CONDITION, UNSPECIFIED 03/29/2018 SCARLET GARRETT AUTO RADIO MECHANIC Ot M79.89 OTHER SPECIFIED SOFT TISSUE DISORDERS 04/21/2018 STEFAN ROBLES MD Ot R22.31 LOCALIZED SWELLING, MASS AND LUMP, RIGHT 04/21/2018 STEFAN ROBLES MD Ot R58 HEMORRHAGE, NOT ELSEWHERE CLASSIFIED 04/23/2018 TRAVIS MD, STEFAN J Ot R22.31 LOCALIZED SWELLING, MASS AND LUMP, RIGHT 04/23/2018 TRAVIS LU, TSEFAN Lazo Ot R58 HEMORRHAGE, NOT ELSEWHERE CLASSIFIED 05/27/2018 REBEKAHJAYDEN Beckett [employer] SERVICER Ot E03.9 HYPOTHYROIDISM, UNSPECIFIED 05/27/2018 REBEKAH, JAYDEN [employer] SERVICER Ot E78.00 PURE HYPERCHOLESTEROLEMIA, UNSPECIFIED 05/27/2018 REBEKAH, JAYDEN [employer] SERVICER Ot F31.9 BIPOLAR DISORDER, UNSPECIFIED 05/27/2018 REBEKAH, JAYDEN [employer] SERVICER Ot F41.9 ANXIETY DISORDER, UNSPECIFIED 05/27/2018 REBEKAH, JAYDEN [employer] SERVICER Ot G43.909 MIGRAINE, UNSP, NOT INTRACTABLE, WITHOUT 05/27/2018 REBEKAH, JAYDEN [employer] SERVICER Ot G47.30 SLEEP APNEA, UNSPECIFIED 05/27/2018 REBEKAH, JAYDEN [employer] SERVICER Ot I10 ESSENTIAL (PRIMARY) HYPERTENSION 05/27/2018 REBEKAH, JAYDEN [employer] SERVICER Ot I25.10 ATHSCL HEART DISEASE OF [place] CORONARY 05/27/2018 REBEKAH JAYDEN [employer] SERVICER Ot I25.2 OLD MYOCARDIAL INFARCTION 05/27/2018 REBEKAH JAYDEN [employer] SERVICER Ot I48.91 UNSPECIFIED ATRIAL FIBRILLATION 05/27/2018 REBEKAH, JAYDEN [employer] SERVICER Ot I73.9 PERIPHERAL VASCULAR DISEASE, UNSPECIFIED 05/27/2018 REBEKAH, JAYDEN [employer] SERVICER Ot J20.9 ACUTE BRONCHITIS, UNSPECIFIED 05/27/2018 REBEKAH, JAYDEN [employer] SERVICER Ot J44.0 CHRONIC OBSTRUCTIVE PULMON DISEASE W ACU 05/27/2018 REBEKAH JAYDEN [employer] SERVICER Ot J44.1 CHRONIC OBSTRUCTIVE PULMONARY DISEASE W 05/27/2018 JAYDEN WELCH [employer] SERVICER Ot R06.09 OTHER FORMS OF DYSPNEA 05/27/2018 REBEKAH JAYDEN [employer] SERVICER Ot Z79.01 NETWORK OPERATIONS MANAGER (CURRENT) USE OF ANTICOAGULANT 05/27/2018 REBEKAH JAYDEN [employer] SERVICER Ot Z79.51 NETWORK OPERATIONS MANAGER (CURRENT) USE OF INHALED STERO 05/27/2018 JAYDEN WELCH [employer] SERVICER Ot Z79.52 NETWORK OPERATIONS MANAGER (CURRENT) USE OF SYSTEMIC STER 05/27/2018 JAYDEN WELCH [employer] SERVICER Ot Z79.82 NETWORK OPERATIONS MANAGER (CURRENT) USE OF ASPIRIN 05/27/2018 JAYDEN WELCH [employer] SERVICER Ot Z82.49 FAMILY HX OF ISCHEM HEART DIS AND OTH DI 05/27/2018 JAYDEN WELCH [employer] Ot Z87.01 PERSONAL HISTORY OF PNEUMONIA (RECURRENT 05/27/2018 JAYDEN WELCH Ot Z87.09 PERSONAL HISTORY OF OTHER DISEASES OF TH 05/27/2018 JAYDEN WELCH Ot Z90.49 ACQUIRED ABSENCE OF OTHER SPECIFIED PART 05/27/2018 JAYDEN WELCH Ot Z90.710 ACQUIRED ABSENCE OF BOTH CERVIX AND UTER 05/27/2018 JAYDEN WELCH Ot Z98.51 TUBAL LIGATION STATUS 05/27/2018 JAYDEN WELCH Ot Z98.890 OTHER SPECIFIED POSTPROCEDURAL STATES Procedures There is no data. Results Test [...] culture - 08/25/16 16:00 Bacterial urine culture [id number] NRG COLONY COUNT 10,000/ML - 100,000/ML NRG [...] - 02/23/18 15:40 Bacterial blood culture NG NR Bacterial blood culture - 02/23/18 15:57 Bacterial blood culture NG NR Complete blood count (CBC) with automated white blood cell (WBC) differential - 05/25/18 18:25 Blood leukocytes automated count (number/volume) 4.1 10*3/uL 4.3-11.0 Blood erythrocytes automated count (number/volume) 4.79 10*6/uL 4.35-5.85 Venous blood hemoglobin measurement (mass/volume) 14.1 g/dL 11.5-16.0 Blood hematocrit (volume fraction) 43 % 35-52 Automated erythrocyte mean corpuscular volume 90 [foz_us] 80-99 Automated erythrocyte mean corpuscular hemoglobin (mass per erythrocyte) 29 pg 25-34 Automated erythrocyte mean corpuscular hemoglobin concentration measurement ( mass/volume) 33 g/dL 32-36 Automated erythrocyte distribution width ratio 14.2 % 10.0-14.5 Automated blood platelet count (count/volume) 203 10*3/uL 130-400 Automated blood platelet mean volume measurement 9.6 [foz_us] 7.4-10.4 Automated blood neutrophils/100 leukocytes 43 % 42-75 Automated blood lymphocytes/100 leukocytes 36 % 12-44 Blood monocytes/100 leukocytes 12 % 0-12 Automated blood eosinophils/100 leukocytes 8 % 0-10 Automated blood basophils/100 leukocytes 1 % 0-10 Blood neutrophils automated count (number/volume) 1.7 10*3 1.8-7.8 Blood lymphocytes automated count (number/volume) 1.5 10*3 1.0-4.0 Blood monocytes automated count (number/volume) 0.5 10*3 0.0-1.0 Automated eosinophil count 0.3 10*3/uL 0.0-0.3 Automated blood basophil count (count/volume) 0.0 10*3/uL 0.0-0.1 Whole blood basic metabolic panel - 05/25/18 18:25 Serum or plasma sodium measurement (moles/volume) 143 mmol/L 135-145 Serum or plasma potassium measurement (moles/volume) 3.6 mmol/L 3.6-5.0 Serum or plasma chloride measurement (moles/volume) 102 mmol/L 98-107 Carbon dioxide 30 mmol/L 21-32 Serum or plasma anion gap determination (moles/volume) 11 mmol/L 5-14 Serum or plasma urea nitrogen measurement (mass/volume) 9 mg/dL 7-18 Serum or plasma creatinine measurement (mass/volume) 0.92 mg/dL 0.60-1.30 Serum or plasma urea nitrogen/creatinine mass ratio 10 NRG Serum or plasma creatinine measurement with calculation of estimated glomerular filtration rate > NRG Serum or plasma glucose measurement (mass/volume) 98 mg/dL 70-105 Serum or plasma calcium measurement (mass/volume) 9.5 mg/dL 8.5-10.1 Serum or plasma lithium measurement (moles/volume) - 05/25/18 18:25 BNP level 154.4 pg/mL <100.0 Encounters ACCT No. Visit Date/Time Discharge Status Pt. Type Provider Facility Loc./Unit Complaint [id number] 05/25/2018 18:11:00 05/25/2018 19:49:00 DIS Outpatient JAYDEN WELCH [facility] ER SOB [id number] 04/17/2018 18:40:00 04/17/2018 18:50:00 DIS Outpatient TRAVIS LU, STEFAN Lazo [facility] ER R ARM LUMP/BLOOD UNDER SKIN [id number] 03/24/2018 16:07:00 03/24/2018 23:59:59 CLS PreadMALGORZATA Monterroso MD [facility] WOUNDCARE [id number] 02/23/2018 15:02:00 02/23/2018 17:19:00 DIS Emergency ZHANE LU, JAMES Rodríguez [facility] ER L LEG CELLULITIS [id number] 02/20/2018 17:13:00 02/21/2018 15:27:00 DIS Inpatient CHARLY LU, EFRAIN Gutierrez [facility] ICU SOB [id number] 02/17/2018 10:34:00 02/17/2018 23:59:59 CLS Outpatient SCARLET GARRETT APRN [facility] RAD PAIN AND SWELLING OF LEFT LOWER LEG [id number] 02/15/2018 09:44:00 02/15/2018 13:00:00 DIS Emergency JONNATHAN MALLOY APRN [facility] ER STOMACH PAIN; CHEST PAIN [id number] 06/09/2017 15:00:00 06/09/2017 16:58:00 DIS Emergency MOLLY ARANA [facility] ER NEEDS ANTIBIOTIC HERE LAST NIGHT FOR NOSE BLEED [id number] 06/08/2017 21:55:00 06/08/2017 23:20:00 DIS Emergency HUGH CORDOVA MD [facility] ER NOSE BLEED FOR 45 MINUTES - BLOOD THINNERS [id number] 04/29/2017 15:16:00 04/29/2017 23:59:59 CLS Outpatient SCARLET GARRETT APRN [facility] RAD M554.42 [id number] 03/28/2017 15:34:00 03/28/2017 18:53:00 DIS Emergency CARISSA ROMERO DO [facility] ER L LEG SWELLING/PAIN [id number] 01/12/2017 15:46:00 01/12/2017 17:08:00 DIS Emergency JONNATHAN MALLOY APRN [facility] ER TROUBLE BREATHING; HEAVINESS IN CHEST [id number] 11/29/2016 23:07:00 11/30/2016 02:36:00 DIS Emergency TASHA LU, HUGH Ba [facility] ER D/N FEVER WEAK [id number] 08/25/2016 14:30:00 08/25/2016 18:32:00 DIS Emergency JAMES PHELAN MD [facility] ER DIZZINESS/NAUSEA/ SHAKEY LEFT CALF PAIN [id number] 05/12/2016 23:38:00 05/13/2016 01:24:00 DIS Emergency CARISSA ROMERO DO [facility] ER N/V/D [id number] 02/25/2016 14:56:00 02/25/2016 23:59:59 CLS Outpatient SAIDA HAMEED MD [facility] RAD WHEEZING [id number] 08/13/2015 08:10:00 08/13/2015 23:59:59 CLS Outpatient ESTELA SALINAS [facility] CARD CHEST PAIN, PALPITATIONS,AFIB [id number] 06/16/2015 12:33:00 06/16/2015 14:55:00 DIS Emergency SANDRITA ALVARADO MD [facility] ER SOB/COPD [id number] 04/05/2015 09:50:00 04/05/2015 12:07:00 DIS Emergency SANDRITA ALVARADO MD [facility] ER SOA [id number] 04/02/2015 12:02:00 04/04/2015 09:45:00 DIS Inpatient SAIDA HAMEED MD [facility] 4TH COPD,EXACERBATION [id number] 02/21/2015 15:46:00 02/21/2015 23:59:59 CLS Outpatient SAIDA HAMEED MD [facility] RAD BRONCHITIS [id number] 11/20/2014 23:05:00 11/22/2014 09:45:00 DIS Inpatient SAIDA HAMEED MD [facility] 4TH BLEACH FUMES EXPOSURE, COPD EXACERBATION [id number] 10/25/2014 14:21:00 10/25/2014 19:30:00 DIS Emergency JAMES PHELAN MD [facility] ER LEFT GROIN PAIN [id number] 10/13/2013 20:46:00 10/14/2013 00:44:00 DIS Emergency JULIANA HERNANDEZ DO [facility] ER L LEG PAIN; CHEST PAIN [id number] 09/25/2013 12:37:00 09/25/2013 23:59:59 CLS Outpatient TRACY JOSEPH DO [facility] RT COPD,AFIB [id number] 08/25/2013 00:35:00 08/25/2013 12:05:00 DIS Inpatient SAIDA HAMEED MD [facility] CSD CHEST PAIN, SUBTHERAPEUTIC INR [id number] 07/04/2013 11:07:00 07/04/2013 23:59:59 CLS Outpatient SAIDA HAMEED MD [facility] RAD SWELLING,PAIN [id number] 06/28/2013 16:29:00 06/28/2013 17:24:00 DIS Emergency NICK SALAZAR CARISSA Roberto [facility] ER VOMITING,COUGH, POST EXPOSURE TO CLOROX [id number] 05/21/2013 20:58:00 05/25/2013 10:45:00 DIS Inpatient SAIDA HAMEED MD [facility] 4TH COPD EXACERBATION; WEAKNESS [id number] 05/21/2013 13:28:00 05/21/2013 15:42:00 DIS Emergency JONNATHAN MALLOY APRN [facility] ER SOA CONGESTION R ARM PAIN [id number] 03/24/2013 17:10:00 03/25/2013 09:50:00 DIS Inpatient VIELKA MORENO MD [facility] ICU CHEST PAIN [id number] 03/01/2013 01:10:00 03/01/2013 14:29:00 DIS Inpatient SAIDA HAMEED MD [facility] 4TH ACUTE EXACERBATION OF COPD [id number] 02/13/2013 12:59:00 02/13/2013 14:18:00 DIS Emergency JONNATHAN MALLOY APRN [facility] ER LEFT LEG/GROIN PAIN [id number] 12/27/2012 13:08:00 12/27/2012 15:00:00 DIS Emergency JONNATHAN MALLOY APRN [facility] ER RIGHT ARM NUMBNESS/LEFT THIGH KNOT [id number] 12/02/2012 08:45:00 12/02/2012 23:59:59 CLS Outpatient JAMES PHELAN MD [facility] LAB SUPRATHERAPEUTIC INR [id number] 11/30/2012 15:06:00 11/30/2012 18:11:00 DIS Emergency JAMES PHELAN MD [facility] ER SOA,HEADACHE, DIZZINESS [id number] 10/30/2012 11:45:00 10/30/2012 23:59:59 CLS Outpatient [id number] 08/20/2012 10:02:00 08/20/2012 23:59:59 CLS Outpatient [id number] 05/31/2018 15:50:00 ACT Emergency JAMES PHELAN MD [facility] ER SOB [id number] 10/25/2014 14:22:00 Document Registration [id number] 10/25/2014 14:22:00 Document Registration [id number] 10/25/2014 14:21:00 Document Registration [id number] 10/25/2014 14:21:00 Document Registration [id number] 10/25/2014 14:21:00 Document Registration [id number] 10/25/2014 14:21:00 Document Registration [id number] 10/25/2014 14:21:00 Document Registration [id number] 10/25/2014 14:21:00 Document Registration [id number] 10/25/2014 14:21:00 Document Registration [id number] 07/01/2014 22:30:00 Document Registration [id number] 06/13/2012 19:15:00 Document Registration [id number] 02/23/2012 01:00:00 Document Registration [id number] 12/03/2011 00:00:00 Document Registration [id number] 11/12/2011 21:51:00 Document Registration [id number] 10/13/2011 08:28:00 Document Registration [id number] 09/03/2011 12:33:00 Document Registration [id number] 08/21/2011 20:45:00 Document Registration [id number] 03/24/2011 20:48:00 Document Registration [id number] 01/24/2011 21:19:00 Document Registration [id number] 09/28/2010 18:20:00 Document Registration [id number] 04/29/2010 21:21:00 Document Registration [id number] 02/10/2010 09:58:00 Document Registration [id number] 01/29/2010 14:43:00 Document Registration [id number] 11/25/2009 11:02:00 Document Registration [id number] 11/13/2009 23:33:00 Document Registration [id number] 10/28/2009 11:54:00 Document Registration [id number] 09/27/2009 10:28:00 Document Registration [id number] 09/20/2009 15:31:00 Document Registration [id number] 07/29/2009 13:39:00 Document Registration [id number] 07/29/2009 12:23:00 Document Registration [id number] 11/20/2014 19:15:56 ACT Document Registration [id number] 12/02/2017 15:15:00 12/02/2017 23:59:59 [facility] ELIE Chaparro [facility]
[2018-05-31] MEDS ORDERED: RT-ALBUTEROL/IPRATROPIUM 3 ML (DUONEB) VIAL INH ONE (16:15)
[2018-05-31 16:55] LABS: BASOPHILS % (AUTO) 1 % (0-10); EOSINOPHILS # (AUTO) 0.2 10^3/uL (0.0-0.3); EOSINOPHILS % (AUTO) 2 % (0-10); HEMATOCRIT 42 % (35-52); HEMOGLOBIN 13.4 G/DL (11.5-16.0); LYMPHOCYTES % (AUTO) 40 % (12-44); MEAN CORPUSCULAR HEMOGLOBIN 30 PG (25-34); MEAN CORPUSCULAR HGB CONC 32 G/DL (32-36); MEAN CORPUSCULAR VOLUME 91 FL (80-99); MEAN PLATELET VOLUME 9.2 FL (7.4-10.4); MONOCYTES # (AUTO) 0.6 X 10^3 (0.0-1.0); MONOCYTES % (AUTO) 8 % (0-12); NEUTROPHILS # (AUTO) 3.6 X 10^3 (1.8-7.8); NEUTROPHILS % (AUTO) 49 % (42-75); PLATELET COUNT 201 10^3/uL (130-400); RED CELL DISTRIBUTION WIDTH 14.5 % (10.0-14.5); WHITE BLOOD COUNT 7.3 10^3/uL (4.3-11.0)
[2018-05-31 17:14] VITALS: BP 141/78
[2018-05-31 17:21] LABS: ALANINE AMINOTRANSFERASE 18 U/L (0-55); ALBUMIN 3.9 GM/DL (3.2-4.5); ALKALINE PHOSPHATASE 93 U/L (40-136); BILIRUBIN,TOTAL 0.4 MG/DL (0.1-1.0); BUN/CREATININE RATIO 16; CALCIUM 8.9 MG/DL (8.5-10.1); CARBON DIOXIDE 28 MMOL/L (21-32); CHLORIDE 104 MMOL/L (98-107); CREATININE SERUM 0.82 MG/DL (0.60-1.30); GFR ESTIMATED > 60; GLUCOSE 100 MG/DL (70-105); POTASSIUM 3.7 MMOL/L (3.6-5.0); SODIUM 143 MMOL/L (135-145); TOTAL PROTEIN 6.4 GM/DL (6.4-8.2)
--- NOTE | 2018-05-31 17:38 | Diagnostic Imaging Report ---
INDICATION: Bronchitis with increasing shortness of air. TIME OF EXAM: 05:25 p.m. Correlation is made with prior study from 05/25/2018. FINDINGS: The heart size is stable. There is some ectasia and tortuosity of the descending thoracic aorta. No infiltrates are seen. There is no failure. No effusion or pneumothorax is identified. IMPRESSION: Stable chest. No acute feature is detected. Dictated by: Dictated on workstation # [id number]
[2018-05-31] MEDS ORDERED: PRD20T PO ×2 (17:48→17:52)
--- NOTE | 2018-05-31 17:48 | ED Cough/URI ---
General Chief Complaint: Respiratory Problems Stated Complaint: SOB Nursing Triage Note: SENT OVER FROM DR MCMANUS DUE TO SOA AND DECREASED AIR MOVEMENT ON THE RIGHT. PT HAS A CHRONIC HX OF COPD/BRONCHITIS. STATES IT HURTS IN HER CHEST TO BREATHE AND COUGH. Sepsis Screen: No Definite Risk Source: patient Exam Limitations: no limitations History of Present Illness Date Seen by Provider: May 31, 2018 Time Seen by Provider: 16:13 Initial Comments 63-year-old female who presents to the emergency room after being sent over by Dr. Georges's office with complaints of shortness of air and decreased air movement. She has a history of chronic COPD and bronchitis. She complains of pain with inspiration. She denies taking her breathing treatments today. Timing/Duration: this morning Severity/Quality: mild, dry cough Prior Episodes/Possible Cause: frequent episodes Associated Symptoms: cough, shortness of breath, wheezing Allergies and Home Medications Allergies Coded Allergies: No Known Drug Allergies (Verified , 04/02/15) Home Medications Albuterol Sulfate 2.5 Mg/3 Ml Vial.neb, 2.5 MG INH Q4H PRN for SHORTNESS OF BREATH Prescribed by: JAYDEN WELCH on 05/25/181909 Apixaban 5 Mg Tablet, 5 MG PO DAILY, (Reported) Aspirin 81 Mg Tablet.dr, 81 MG PO DAILY, (Reported) Cefdinir 300 Mg Capsule, 300 MG PO BID Prescribed by: JAMES PHELAN on 02/23/181625 Citalopram Hydrobromide 40 Mg Tablet, 40 MG PO DAILY, (Reported) Furosemide 40 Mg Tablet, 40 MG PO DAILY, (Reported) Hydrocodone/Acetaminophen 1 Each Tablet, 1 TAB PO Q6H PRN for PAIN-MODERATE, ( Reported) Hydrocodone/Acetaminophen 1 Each Tablet, 1 EACH PO Q6H PRN for PAIN-MODERATE Prescribed by: JAMES PHELAN on 02/23/181625 Levothyroxine Sodium 25 Mcg Tablet, 25 MCG PO DAILY, (Reported) Meclizine HCl 25 Mg Tablet, 25 MG PO TID PRN for DIZZINESS, (Reported) Metoprolol Succinate 50 Mg Tab.er.24h, 50 MG PO DAILY, (Reported) Metronidazole 500 Mg Tablet, 500 MG PO TID, (Reported) 7 DAY THERAPY FILLED 02-15-18 Multivit-Min/FA/Lycopene/Lut 1 Each Tablet, 1 TAB PO DAILY, (Reported) Ondansetron 8 Mg Tab.rapdis, 8 MG PO Q6H PRN for NAUSEA/VOMITING-1ST LINE, ( Reported) Potassium Chloride 20 Meq Tab.er.prt, 20 MEQ PO DAILY, (Reported) Prednisone 20 Mg Tab, 20 MG PO DAILY Take 3 tablets once daily for 3 days; then 2 tablets once daily for 3 days; then 1 tablet once daily for 3 days. Prescribed by: JAYDEN WELCH on 05/25/181909 Prednisone 20 Mg Tab, 20 MG PO DAILY Prescribed by: CHINEDU BAEZ on 05/31/181747 Simvastatin 20 Mg Tablet, 20 MG PO DAILY, (Reported) LAST FILLED #90 10-21-17 Sulfamethoxazole/Trimethoprim 1 Each Tablet, 1 TAB PO BID, (Reported) 7 DAY THERAPY FILLED 02-15-18 Past Ndjprxt-Obhdjk-Hmwxzf Hx Patient Social History Type Used: Cigarettes 2nd Hand Smoke Exposure: Yes Recent Foreign Travel: No Contact w/Someone Who Travel: No Recent Infectious Disease Expo: No Recent Hopitalizations: No Immunizations Up To Date Tetanus Booster (TDap): Unknown PED Vaccines UTD: No Date of Pneumonia Vaccine: Apr 26, 2012 Date of Influenza Vaccine: Feb 24, 2015 Seasonal Allergies Seasonal Allergies: No Past Medical History Surgeries: Yes (BILATERAL LEG VEIN STRIPPING ; MULTIPLE CARDIAC CATHS; LEFT WRIST REPAIR) Appendectomy, Cardiac, Ear Surgery, Hysterectomy, Orthopedic, Tubal Ligation, Vascular Surgery Respiratory: Yes Asthma, Pneumonia, Chronic Bronchitis, Sleep Apnea, COPD Currently Using CPAP: No Currently Using BIPAP: No Cardiac: Yes ([place] 2004; VARICOSE VEINS) Atrial Fibrillation, Coronary Artery Disease, Heart Attack, High Cholesterol, Hypertension, Irregular Heartbeat, Peripheral Vascular Neurological: Yes Headaches /Migraines 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 Disorders: No Female 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 Sexually Transmitted Disease: No HIV/AIDS: No Genitourinary: No Gastrointestinal: No Musculoskeletal: Yes ("PLATE IN LEFT WRIST"--NARCOTIC DEPENDENT) Arthritis, Chronic Back Pain, Fractures Endocrine: Yes Hypothyroidsim Loss of Vision: Denies Hearing Impairment: Denies Cancer: No Psychosocial: Yes Anxiety, Bipolar, Depression Integumentary: No Blood Disorders: No Adverse Reaction/Blood Tranf: No Family Medical History Cancer 03 MOTHER, Onset:60 years & older son, Onset:10's - 15 Dementia 03 MOTHER, Onset:60 years & older Family history: Alzheimer's disease 03 MOTHER, Onset:60 years & older Family history: Hypertension 09 BROTHER, Onset:30's - 40 Family history: Thyroid disorder daughter, Onset:20's - 25 History of - respiratory disease 09 BROTHER, Onset: No Pertinent Family Hx Physical Exam Vital Signs - First Documented 05/31/18 15:55 Temp 97.7 Pulse 63 Resp 22 B/P (MAP) 199/99 (132) Pulse Ox 97 O2 Delivery Room Air Capillary Refill : Less Than 3 Seconds Height: 5'10.00" Weight: 295lbs. 0.0oz. 133.643171vx; 41.6 BMI Method:Stated Progress/Results/Core Measures Suspected Sepsis Recent Fever Within 48 Hours: No Infection Criteria Present: Suspected New Infection New/Unexplained Altered Menta: No Sepsis Screen: No Definite Risk SIRS Temperature:97.7 Pulse: 63 Respiratory Rate: 22 Laboratory Tests 05/31/18 16:50: White Blood Count 7.3 Blood Pressure 199 /99 Mean: 132 Laboratory Tests 05/31/18 16:50: Creatinine 0.82, Platelet Count 201, Total Bilirubin 0.4 Results/Orders Lab Results Laboratory Tests Test 05/31/18 16:50 Range/Units White Blood Count 7.3 4.3-11.0 10^3/uL Red Blood Count 4.55 4.35-5.85 10^6/uL Hemoglobin 13.4 11.5-16.0 G/DL Hematocrit 42 35-52 % Mean Corpuscular Volume 91 80-99 FL Mean Corpuscular Hemoglobin 30 25-34 PG Mean Corpuscular Hemoglobin Concent 32 32-36 G/DL Red Cell Distribution Width 14.5 10.0-14.5 % Platelet Count 201 130-400 10^3/uL Mean Platelet Volume 9.2 7.4-10.4 FL Neutrophils (%) (Auto) 49 42-75 % Lymphocytes (%) (Auto) 40 12-44 % Monocytes (%) (Auto) 8 0-12 % Eosinophils (%) (Auto) 2 0-10 % Basophils (%) (Auto) 1 0-10 % Neutrophils # (Auto) 3.6 1.8-7.8 X 10^3 Lymphocytes # (Auto) 3.0 1.0-4.0 X 10^3 Monocytes # (Auto) 0.6 0.0-1.0 X 10^3 Eosinophils # (Auto) 0.2 0.0-0.3 10^3/uL Basophils # (Auto) 0.0 0.0-0.1 10^3/uL Sodium Level 143 135-145 MMOL/L Potassium Level 3.7 3.6-5.0 MMOL/L Chloride Level 104 98-107 MMOL/L Carbon Dioxide Level 28 21-32 MMOL/L Anion Gap 11 5-14 MMOL/L Blood Urea Nitrogen 13 7-18 MG/DL Creatinine 0.82 0.60-1.30 MG/DL Estimat Glomerular Filtration Rate > 60 BUN/Creatinine Ratio 16 Glucose Level 100 70-105 MG/DL Calcium Level 8.9 8.5-10.1 MG/DL Corrected Calcium 9.0 8.5-10.1 MG/DL Total Bilirubin 0.4 0.1-1.0 MG/DL Aspartate Amino Transf (AST/SGOT) 19 5-34 U/L Alanine Aminotransferase (ALT/SGPT) 18 0-55 U/L Alkaline Phosphatase 93 40-136 U/L Total Protein 6.4 6.4-8.2 GM/DL Albumin 3.9 3.2-4.5 GM/DL My Orders Orders - CHINEDU BAEZ Cbc With Automated Diff (05/31/18 16:12) Comprehensive Metabolic Panel (05/31/18 16:12) Albuterol/Ipra Inhalation Soln (Duoneb I (05/31/18 16:15) Chest Pa/Lat (2 View) (05/31/18 16:12) Saline Lock/Iv-Start (05/31/18 16:12) Svn Small Volume Nebulizer (05/31/18 16:12) Medications Given in ED Current Medications Medications Dose Ordered Sig/Brianna Route Start Time Stop Time Status Last Admin Dose Admin Albuterol/ Ipratropium 3 ml ONCE ONCE INH 05/31/18 16:15 05/31/18 16:16 DC 05/31/18 16:19 3 ML Vital Signs/I&O 05/31/18 05/31/18 15:55 16:19 Temp 97.7 Pulse 63 Resp 22 B/P (MAP) 199/99 (132) Pulse Ox 97 98 O2 Delivery Room Air Room Air Capillary Refill : Less Than 3 Seconds Blood Pressure Mean: 132 Departure Impression Primary Impression: Acute exacerbation of chronic obstructive airways disease Disposition: 01 HOME, SELF-CARE Condition: Stable/Unchanged Departure-Patient Inst. Decision time for Depature: 17:47 Referrals: SAIDA GEORGES MD (PCP/Family) Primary Care Physician Patient Instructions: Chronic Bronchitis (DC) Add. Discharge Instructions: Take medications as directed. Continue to use your breathing treatments at home as previously prescribed. Follow-up with Dr. Georges's office within 1 week for recheck. Return back to the emergency room for worsening symptoms or concerns as needed. All discharge instructions reviewed with patient and/or family. Voiced understanding. Scripts Prednisone (Prednisone) 20 Mg Tab 20 MG PO DAILY for 3 Days, #6 TAB Prov: CHINEDU BAEZ 05/31/18 CHINEDU BAEZ May 31, 2018 17:48
== END 2018-05-31 17:58 | disposition home or self-care (01) ==
LOC: EDUNIT# 15:49 → ER 15:50
DX: J44.1 Chronic obstructive pulmonary disease with (acute) exacerbation (principal); I25.2 Old myocardial infarction; I48.91 Unspecified atrial fibrillation; I25.10 Atherosclerotic heart disease of native coronary artery without angina pectoris; I10 Essential (primary) hypertension; E78.00 Pure hypercholesterolemia, unspecified; I73.9 Peripheral vascular disease, unspecified; E03.9 Hypothyroidism, unspecified; F31.9 Bipolar disorder, unspecified; F41.9 Anxiety disorder, unspecified; Z86.69 Personal history of other diseases of the nervous system and sense organs; Z77.22 Contact with and (suspected) exposure to environmental tobacco smoke (acute) (chronic); Z79.51 Long term (current) use of inhaled steroids; Z79.82 Long term (current) use of aspirin; Z90.49 Acquired absence of other specified parts of digestive tract; Z90.710 Acquired absence of both cervix and uterus; Z98.51 Tubal ligation status; Z87.01 Personal history of pneumonia (recurrent)
CPT/HCPCS: 36415; 71046; 80053; 85025; 94640

== ENCOUNTER 2018-08-30 09:58 | Day surgery (SDC) | payer MEDICARE, MEDICAID ==
[~2018-08-30] VITALS: Ht 182.9 cm; Wt 135.6 kg
[2018-08-30] VITALS (10 sets, daily range): BP systolic 133–177; BP diastolic 79–112
[2018-08-30] MEDS ORDERED: HEParin (CATH LAB) 2,000 ML IV ONE (10:04)
[2018-08-30] MEDS ORDERED: LIDOCAINE 1% INJ 20 ML 20 ML VIAL ONE (10:04)
[2018-08-30] MEDS ORDERED: NS IV 1000 ML 1,000 ML ONE (10:04)
--- OUTSIDE RECORDS SUMMARY | 2018-08-30 10:09 | XMS REPORT | Continuity of Care Document ---
Author Organization Unknown Address Unknown Allergies Active Description Code Type Severity Reaction Onset Reported/Identified Relationship to Patient Clinical Status Yes NKDA NKDA Mild N/ A 10/13/2008 Yes No Known Drug Allergies [id number] Drug Allergy Unknown N/A 04/02/2015 Medications There [...] INFARCT 09/29/2010 Ot 414.01 CORONARY ATHEROSCLEROSIS OF [place] CORON 09/29/2010 Ot 427.31 ATRIAL FIBRILLATION 09/29/2010 [...] 728.85 SPASM OF MUSCLE 12/27/2012 JONNATHAN MALLOY WHISKEY REGAUGER Ot 782.0 SKIN SENSATION DISTURB 02/13/2013 JONNATHAN MALLOY APRN Ot 715.95 OSTEOARTHROS NOS-PELVIS 02/13/2013 JONNATHAN MALLOY APRN Ot 729.5 PAIN IN LIMB 03/01/2013 SAIDA HAMEED MD Ot 244.9 HYPOTHYROIDISM NOS 03/01/2013 SAIDA HAMEED MD Ot 346.90 MIGRAINE UNSPECIFIED W/O INTRACT MGRN W/ 03/01/2013 SAIDA HAMEED MD Ot 401.9 HYPERTENSION NOS 03/01/2013 SEGLIE MD, SAIDA R Ot 412 OLD MYOCARDIAL INFARCT 03/01/2013 SAIDA HAMEED MD Ot 427.31 ATRIAL FIBRILLATION 03/01/2013 SAIDA HAMEED MD Ot 491.21 OBSTR CHRONIC BRONCHITIS, W (ACUTE) EXAC 03/01/2013 SAIDA HAMEED MD R Ot 716.90 ARTHROPATHY NOS-UNSPEC 03/01/2013 SAIDA HAMEED [...] 786.05 SHORTNESS OF BREATH 05/21/2013 JONNATHAN MALLOY APRN Ot V58.61 ANTICOAGULANTS,LT,CURRENT USE 05/21/2013 JONNATHAN MALLOY APRN Ot V58.69 OTH MED,LT,CURRENT USE 05/25/2013 SAIDA HAMEED MD Ot 244.9 HYPOTHYROIDISM NOS 05/25/2013 SAIDA HAMEED MD Ot 250.00 DIAB MICHAEL WO COMPL, TYPE II OR UNSPEC TY 05/25/2013 SAIDA HAMEED MD Ot 300.00 ANXIETY STATE NOS 05/25/2013 SAIDA HAMEED MD Ot 311 DEPRESSIVE DISORDER NEC 05/25/2013 SAIDA HAMEED MD Ot 346.90 MIGRAINE UNSPECIFIED W/O INTRACT MGRN W/ 05/25/2013 SAIDA HAMEED MD Ot 401.9 HYPERTENSION NOS 05/25/2013 SAIDA HAMEED MD Ot 412 OLD MYOCARDIAL INFARCT 05/25/2013 SAIDA HAMEED MD Ot 427.31 ATRIAL FIBRILLATION 05/25/2013 SAIDA HAMEED MD Ot 478.19 OTHER DISEASE OF NASAL CAVITY AND SINUSE 05/25/2013 SAIDA HAMEED MD Ot 491.22 OBSTRUCTIVE CHRONIC BRONCHITIS WITH ACUT 05/25/2013 SAIDA HAMEED MD R Ot 716.90 ARTHROPATHY NOS-UNSPEC 05/25/2013 SAIDA HAMEED MD Ot 780.57 UNSPECIFIED SLEEP APNEA 05/25/2013 SAIDA HAMEED MD Ot 780.79 OTH MALAISE FATIGUE 05/25/2013 SAIDA HAMEED MD Ot 786.05 SHORTNESS OF BREATH 05/25/2013 SAIDA HAMEED MD Ot 786.07 WHEEZING 05/25/2013 SAIDA HAMEED MD Ot 786.09 RESPIRATORY ABNORM NEC 05/25/2013 SAIDA HAMEED MD Ot 786.2 COUGH 05/25/2013 SAIDA HAMEED MD [...] 272.4 HYPERLIPIDEMIA NEC/NOS 08/25/2013 SAIDA HAMEED MD Ot 300.00 ANXIETY STATE NOS 08/25/2013 SAIDA HAMEED MD Ot 311 DEPRESSIVE DISORDER NEC 08/25/2013 SAIDA HAMEED MD Ot 346.90 MIGRAINE UNSPECIFIED W/O INTRACT MGRN W/ 08/25/2013 SAIDA HAMEED MD Ot 401.9 HYPERTENSION NOS 08/25/2013 SAIDA HAMEED MD Ot 412 OLD MYOCARDIAL INFARCT 08/25/2013 SAIDA HAMEED MD Ot 427.31 ATRIAL FIBRILLATION 08/25/2013 SAIDA HAMEED MD Ot 496 CHR AIRWAY OBSTRUCT NEC 08/25/2013 SAIDA HAMEED MD Ot 530.81 ESOPHAGEAL REFLUX 08/25/2013 SAIDA HAMEED MD Ot 716.90 ARTHROPATHY NOS-UNSPEC 08/25/2013 SAIDA HAMEED MD Ot 724.5 BACKACHE NOS 08/25/2013 SAIDA HAMEED [...] Oliveira Ot 729.81 10/25/2014 TRACY JOSEPH DO Ot 278.01 10/25/2014 JAKE SALAZAR TRACY Gutierrez Ot 311 10/25/2014 JAKE TRACY SALAZAR Ot 427.31 10/25/2014 JAKE SALAZAR TRACY Gutierrez Ot 496 10/25/2014 JAMES PHELAN MD Ot [...] MD Ot 286.9 10/25/2014 ZARI LU, SAIDA R Ot 729.5 10/25/2014 ZARI LU, SAIDA R Ot 729.81 10/25/2014 JAKE SALAZAR TRACY Gutierrez Ot 278.01 10/25/2014 JAKE SALAZAR TRACY Gutierrez Ot 311 10/25/2014 JAKE SALAZAR TRACY Gutierrez Ot 427.31 10/25/2014 JAKE SALAZAR TRACY Gutierrez Ot 496 11/22/2014 ZARI LU, SAIDA Oliveira Ot 496 CHR AIRWAY OBSTRUCT NEC 11/22/2014 ZARI LU, SAIDA Oliveira Ot 987.6 TOXIC EFF CHLORINE GAS 11/22/2014 ZARI LU, SAIDA Oliveira Ot E000.8 OTHER EXTERNAL CAUSE STATUS 11/22/2014 SAIDA HAMEED MD Ot E013.4 ACTIVITIES INVOLVING FLOOR MOPPING AND C 11/22/2014 SAIDA HAMEED MD Ot E849.0 ACCIDENT IN HOME 11/22/2014 SEGLIE MD, SAIDA R Ot E869.8 ACC POISON-GAS/VAPOR NEC 02/25/2015 [...] TRACY JOSEPH DO Ot 427.31 04/02/2015 TRACY JOESPH DO Ot 496 04/02/2015 ZARI LU, SAIDA R Ot J40 04/02/2015 Ot V58.61 04/02/2015 Ot V58.83 04/04/2015 ZARI LU, SAIDA Oliveira Ot E11.9 TYPE 2 DIABETES MELLITUS WITHOUT COMPLIC 04/04/2015 SAIDA HAMEED MD Ot E66.9 OBESITY, UNSPECIFIED 04/04/2015 SAIDA HAMEED MD Ot I10 ESSENTIAL (PRIMARY) HYPERTENSION 04/04/2015 ZARI LU, SAIDA Oliveira Ot I48.91 UNSPECIFIED ATRIAL FIBRILLATION 04/04/2015 SAIDA HAMEED MD Ot J44.1 CHRONIC OBSTRUCTIVE PULMONARY DISEASE W 04/04/2015 ZARI LU, SAIDA Oliveira Ot Z23 ENCOUNTER FOR IMMUNIZATION 04/04/2015 ZARI LU, SAIDA Oliveira Ot Z68.41 BODY MASS INDEX (BMI) 40.0-44.9, ADULT 04/05/2015 CHRISTIANO LU, SANDRITA Mejia Ot J44.0 CHRONIC OBSTRUCTIVE PULMON DISEASE W ACU 05/07/2015 Ot 478.19 05/07/2015 Ot 780.4 05/07/2015 Ot 784.0 05/07/2015 Ot 787.02 05/07/2015 Ot 709.9 05/07/2015 Ot V72.63 05/07/2015 Ot V74.8 05/07/2015 Ot V58.61 05/07/2015 Ot V58.83 05/07/2015 ZHANE LU, JAMES Marcos Ot 286.9 05/07/2015 ZARI LU, SAIDA R Ot 729.5 05/07/2015 ZARI LU, SAIDA R Ot 729.81 05/07/2015 JAKE SALAZARTRACY M Ot 278.01 05/07/2015 JAKE SALAZAR, TRACY M Ot 311 05/07/2015 JAKE SALAZAR TRACY M Ot 427.31 05/07/2015 JAKE SALAZAR TRACY M Ot 496 05/07/2015 ZARI LU, SAIDA R Ot J40 05/27/2015 ZARI LU, SAIDA R Ot J40 06/16/2015 CHRISTIANO LU, SANDRITA Mejia Ot J44.1 CHRONIC OBSTRUCTIVE PULMONARY DISEASE W 08/14/2015 BAIMA, ESTELA L BOBBIN CLEANER HAND Ot G47.30 SLEEP APNEA, UNSPECIFIED 08/14/2015 BAIMA, ESTELA L BOBBIN CLEANER HAND Ot I48.91 UNSPECIFIED ATRIAL FIBRILLATION 08/14/2015 BAIMA, ESTELA L BOBBIN CLEANER HAND Ot J44.9 CHRONIC OBSTRUCTIVE PULMONARY DISEASE, U 08/14/2015 BAIMA, ESTELA L BOBBIN CLEANER HAND Ot R06.00 DYSPNEA, UNSPECIFIED 08/14/2015 BAIMA, ESTELA L BOBBIN CLEANER HAND Ot R07.9 CHEST PAIN, UNSPECIFIED 08/14/2015 BAIMA, ESTELA L BOBBIN CLEANER HAND Ot Z79.01 HALFWAY (CURRENT) USE OF ANTICOAGULANT 09/03/2015 BAIMA, ESTELA L BOBBIN CLEANER HAND Ot G47.30 SLEEP APNEA, UNSPECIFIED 09/03/2015 BAIMA, ESTELA L BOBBIN CLEANER HAND Ot I48.91 UNSPECIFIED ATRIAL FIBRILLATION 09/03/2015 BAIMA, ESTELA L BOBBIN CLEANER HAND Ot J44.9 CHRONIC OBSTRUCTIVE PULMONARY DISEASE, U 09/03/2015 BAIMA, ESTELA L BOBBIN CLEANER HAND Ot R06.00 DYSPNEA, UNSPECIFIED 09/03/2015 BAIMA, ESTELA L BOBBIN CLEANER HAND Ot R07.9 CHEST PAIN, UNSPECIFIED 09/03/2015 BAIMA, ESTELA L BOBBIN CLEANER HAND Ot Z79.01 HALFWAY (CURRENT) USE OF ANTICOAGULANT 09/20/2015 ESTELA SALINAS L BOBBIN CLEANER HAND Ot G47.30 SLEEP APNEA, UNSPECIFIED 09/20/2015 ESTELA SALINAS L BOBBIN CLEANER HAND Ot I48.91 UNSPECIFIED ATRIAL FIBRILLATION 09/20/2015 ESTELA SALINAS L BOBBIN CLEANER HAND Ot J44.9 CHRONIC OBSTRUCTIVE PULMONARY DISEASE, U 09/20/2015 ESTELA SALINAS L BOBBIN CLEANER HAND Ot R06.00 DYSPNEA, UNSPECIFIED 09/20/2015 RITA ESTELA L BOBBIN CLEANER HAND Ot R07.9 CHEST PAIN, UNSPECIFIED 09/20/2015 LUIGI SALINASHER L BOBBIN CLEANER HAND Ot Z79.01 HALFWAY (CURRENT) USE OF ANTICOAGULANT 02/25/2016 Ot 709.9 [...] BRONCHITIS, NOT SPECIFIED ACUTE OR CH 02/25/2016 ESTELA SALINAS L BOBBIN CLEANER HAND Ot G47.30 SLEEP APNEA, UNSPECIFIED 02/25/2016 ESTELA SALINAS BOBBIN CLEANER HAND Ot I48.91 UNSPECIFIED ATRIAL FIBRILLATION 02/25/2016 ESTELA SALINAS BOBBIN CLEANER HAND Ot J44.9 CHRONIC OBSTRUCTIVE PULMONARY DISEASE, U 02/25/2016 ESTELA SALINAS L BOBBIN CLEANER HAND Ot R06.00 DYSPNEA, UNSPECIFIED 02/25/2016 ESTELA SALINAS L BOBBIN CLEANER HAND Ot R07.9 CHEST PAIN, UNSPECIFIED 02/25/2016 ESTELA SALINAS BOBBIN CLEANER HAND Ot Z79.01 HALFWAY (CURRENT) USE OF ANTICOAGULANT 02/26/2016 SAIDA HAMEED MD R Ot R06.2 WHEEZING 03/03/2016 Ot 709.9 SKIN DISORDER NOS 03/03/2016 Ot V72.63 PRE- PROCEDURAL LABORATORY EXAMINATION 03/03/2016 Ot V74.8 SCREEN- BACTERIAL DIS NEC 03/03/2016 Ot V58.61 ANTICOAGULANTS,LT,CURRENT USE 03/03/2016 Ot V58.83 ENCOUNTER FOR THERAPEUTIC DRUG MONITORIN 03/03/2016 ZHANE LU, JAMES Rodríguez Ot 286.9 COAGULAT DEFECT NEC/NOS 03/03/2016 SAIDA HAMEED MD Ot 729.5 PAIN IN LIMB 03/03/2016 SAIDA HAMEED MD Ot 729.81 SWELLING OF LIMB 03/03/2016 TRACY JOSEPH DO Ot 278.01 MORBID OBESITY 03/03/2016 TRACY JOSEPH DO Ot 311 DEPRESSIVE DISORDER NEC 03/03/2016 TRACY JOSEPH DO Ot 427.31 ATRIAL FIBRILLATION 03/03/2016 TRACY JOSEPH DO Ot 496 CHR AIRWAY OBSTRUCT NEC 03/03/2016 SAIDA HAMEED MD R Ot J40 BRONCHITIS, NOT SPECIFIED ACUTE OR CH 03/03/2016 ESTELA SALINAS BOBBIN CLEANER HAND Ot G47.30 SLEEP APNEA, UNSPECIFIED 03/03/2016 ESTELA SALINAS BOBBIN CLEANER HAND Ot I48.91 UNSPECIFIED ATRIAL FIBRILLATION 03/03/2016 ESTELA SALINAS BOBBIN CLEANER HAND Ot J44.9 CHRONIC OBSTRUCTIVE PULMONARY DISEASE, U 03/03/2016 ESTELA SALINAS BOBBIN CLEANER HAND Ot R06.00 DYSPNEA, UNSPECIFIED 03/03/2016 ESTELA SALINAS BOBBIN CLEANER HAND Ot R07.9 CHEST PAIN, UNSPECIFIED 03/03/2016 ESTELA SALINAS BOBBIN CLEANER HAND Ot Z79.01 MS SQL DBA (CURRENT) USE OF ANTICOAGULANT 03/03/2016 SAIDA HAMEED MD R Ot R06.2 WHEEZING 03/17/2016 SAIDA HAMEED MD R Ot R06.2 WHEEZING 03/24/2016 SAIDA HAMEED MD R Ot R06.2 WHEEZING 05/13/2016 CARISSA ROMERO DO Ot E66.01 MORBID (SEVERE) OBESITY DUE TO EXCESS CA 05/13/2016 NICK DO, CARISSA K Ot I10 ESSENTIAL (PRIMARY) HYPERTENSION 05/13/2016 NICK DO CARISSA K Ot J44.9 CHRONIC OBSTRUCTIVE PULMONARY DISEASE, U 05/13/2016 NICK DO CARISSA K Ot K52.9 NONINFECTIVE GASTROENTERITIS AND COLITIS 05/13/2016 NICK DO CARISSA K Ot R11.2 NAUSEA WITH VOMITING, UNSPECIFIED 05/13/2016 NICK DO CARISSA K Ot Z79.82 MS SQL DBA (CURRENT) USE OF ASPIRIN 05/13/2016 NICK DO CARISSA K Ot Z79.891 HALFWAY (CURRENT) USE OF OPIATE ANALGE 05/13/2016 NICK DO, CARISSA K Ot Z79.899 OTHER MS SQL DBA (CURRENT) DRUG THERAPY 05/14/2016 NICK DO CARISSA K Ot E66.01 MORBID (SEVERE) OBESITY DUE TO EXCESS CA 05/14/2016 NICK DO, CARISSA K Ot I10 ESSENTIAL (PRIMARY) HYPERTENSION 05/14/2016 NICK DO, CARISSA K Ot J44.9 CHRONIC OBSTRUCTIVE PULMONARY DISEASE, U 05/14/2016 NICK DO, CARISSA K Ot K52.9 NONINFECTIVE GASTROENTERITIS AND COLITIS 05/14/2016 NICK DO, CARISSA K Ot R11.2 NAUSEA WITH VOMITING, UNSPECIFIED 05/14/2016 NICK DO CARISSA K Ot Z79.82 MS SQL DBA (CURRENT) USE OF ASPIRIN 05/14/2016 NICK DO CARISSA K Ot Z79.891 HALFWAY (CURRENT) USE OF OPIATE ANALGE 05/14/2016 NICK DO CARISSA K Ot Z79.899 OTHER HALFWAY (CURRENT) DRUG THERAPY 08/25/2016 Ot 709.9 SKIN DISORDER NOS 08/25/2016 Ot V72.63 PRE- PROCEDURAL LABORATORY EXAMINATION 08/25/2016 Ot V74.8 SCREEN- BACTERIAL DIS NEC 08/25/2016 Ot V58.61 ANTICOAGULANTS,LT,CURRENT USE 08/25/2016 Ot V58.83 ENCOUNTER FOR THERAPEUTIC DRUG MONITORIN 08/25/2016 JAMES PHELAN MD Ot 286.9 COAGULAT DEFECT NEC/NOS 08/25/2016 SAIDA HAMEED MD Ot 729.5 PAIN IN LIMB 08/25/2016 SEGLIE MD, SAIDA R Ot 729.81 SWELLING OF LIMB 08/25/2016 TRACY JOSEPH DO Ot 278.01 MORBID OBESITY 08/25/2016 TRACY JOSEPH DO Ot 311 DEPRESSIVE DISORDER NEC 08/25/2016 TRACY JOSEPH DO Ot 427.31 ATRIAL FIBRILLATION 08/25/2016 TRACY JOSEPH DO Ot 496 CHR AIRWAY OBSTRUCT NEC 08/25/2016 SAIDA HAMEED MD R Ot J40 BRONCHITIS, NOT SPECIFIED ACUTE OR CH 08/25/2016 MELLYMAESTELA L BOBBIN CLEANER HAND Ot G47.30 SLEEP APNEA, UNSPECIFIED 08/25/2016 BAIMA ESTELA L BOBBIN CLEANER HAND Ot I48.91 UNSPECIFIED ATRIAL FIBRILLATION 08/25/2016 ESTELA SALINAS L BOBBIN CLEANER HAND Ot J44.9 CHRONIC OBSTRUCTIVE PULMONARY DISEASE, U 08/25/2016 ESTELA SALINAS L BOBBIN CLEANER HAND Ot R06.00 DYSPNEA, UNSPECIFIED 08/25/2016 BAIMAESTELA L BOBBIN CLEANER HAND Ot R07.9 CHEST PAIN, UNSPECIFIED 08/25/2016 ESTELA SALINAS L BOBBIN CLEANER HAND Ot Z79.01 HALFWAY (CURRENT) USE OF ANTICOAGULANT 08/25/2016 SAIDA HAMEED MD Ot R06.2 WHEEZING 08/25/2016 Ot V58.61 ANTICOAGULANTS,LT,CURRENT USE 08/25/2016 Ot V58.83 ENCOUNTER FOR THERAPEUTIC DRUG MONITORIN 08/25/2016 JAMES PHELAN MD Ot I10 ESSENTIAL (PRIMARY) HYPERTENSION 08/25/2016 JAMES PHELAN MD Ot I25.10 ATHSCL HEART DISEASE OF [place] CORONARY 08/25/2016 JAMES PHELAN MD Ot J44.9 CHRONIC OBSTRUCTIVE PULMONARY DISEASE, U 08/25/2016 JAMES PHELAN MD Ot M79.662 PAIN IN LEFT LOWER LEG 08/25/2016 JAMES PHELAN MD Ot R07.9 CHEST PAIN, UNSPECIFIED 08/25/2016 JAMES PHELAN MD Ot R42 DIZZINESS AND GIDDINESS 08/25/2016 JAMES PHELAN MD Ot Z79.899 OTHER HALFWAY (CURRENT) DRUG THERAPY 08/26/2016 JAMES PHELAN MD Ot I10 ESSENTIAL (PRIMARY) HYPERTENSION 08/26/2016 JAMES PHELAN MD Ot I25.10 ATHSCL HEART DISEASE OF [place] CORONARY 08/26/2016 JAMES PHELAN MD, Ot J44.9 CHRONIC OBSTRUCTIVE PULMONARY DISEASE, U 08/26/2016 JAMES PHELAN MD Ot M79.662 PAIN IN LEFT LOWER LEG 08/26/2016 JAMES PHELAN MD Ot R07.9 CHEST PAIN, UNSPECIFIED 08/26/2016 JAMES PHELAN MD Ot R42 DIZZINESS AND GIDDINESS 08/26/2016 JAMES PHELAN MD Ot Z79.899 OTHER HALFWAY (CURRENT) DRUG THERAPY 11/30/2016 HUGH CORDOVA MD [...] MD Ot I25.10 ATHSCL HEART DISEASE OF [place] CORONARY 11/30/2016 HUGH CORDOVA MD Ot I25.2 [...] UNSPECIFIED 11/30/2016 HUGH CORDOVA MD, Ot Z79.01 MS SQL DBA (CURRENT) USE OF ANTICOAGULANT 11/30/2016 HUGH CORDOVA MD, Ot Z79.82 HALFWAY (CURRENT) USE OF ASPIRIN 11/30/2016 HUGH CORDOVA [...] MD Ot I25.10 ATHSCL HEART DISEASE OF [place] CORONARY 11/30/2016 HUGH CORDOVA MD, Ot I25.2 OLD MYOCARDIAL INFARCTION 11/30/2016 HUGH [...] UNSPECIFIED 11/30/2016 HUGH CORDOVA MD, Ot Z79.01 HALFWAY (CURRENT) USE OF ANTICOAGULANT 11/30/2016 HUGH CORDOVA MD, Ot Z79.82 HALFWAY (CURRENT) USE OF ASPIRIN 11/30/2016 HUGH CORDOVA [...] APRN Ot I25.10 ATHSCL HEART DISEASE OF [place] CORONARY 01/12/2017 JONNATHAN MALLOY APRN Ot I25.2 OLD MYOCARDIAL INFARCTION 01/12/2017 JONNATHAN MALLOY APRN Ot I48.91 UNSPECIFIED ATRIAL FIBRILLATION 01/12/2017 JONNATHAN MALLOY APRN Ot J45.909 UNSPECIFIED ASTHMA, UNCOMPLICATED 01/12/2017 JONNATHAN MALLOY APRN Ot K21.9 GASTRO-ESOPHAGEAL REFLUX DISEASE WITHOUT 01/12/2017 JONNATHAN MALLOY APRN Ot R06.00 DYSPNEA, UNSPECIFIED 01/12/2017 JONNATHAN MALLOY APRN Ot Z79.82 HALFWAY (CURRENT) USE OF ASPIRIN 01/12/2017 JONNATHAN MALLOY [...] APRN Ot I25.10 ATHSCL HEART DISEASE OF [place] CORONARY 01/14/2017 JONNATHAN MALLOY APRN Ot I25.2 OLD MYOCARDIAL INFARCTION 01/14/2017 JONNATAHN MALLOY APRN Ot I48.91 UNSPECIFIED ATRIAL FIBRILLATION 01/14/2017 JONNATHAN MALLOY APRN Ot J45.909 UNSPECIFIED ASTHMA, UNCOMPLICATED 01/14/2017 JONNATHAN MALLOY APRN Ot K21.9 GASTRO-ESOPHAGEAL REFLUX DISEASE WITHOUT 01/14/2017 JONNATHAN MALLOY APRN Ot R06.00 DYSPNEA, UNSPECIFIED 01/14/2017 JONNATHAN MALLOY APRN Ot Z79.82 HALFWAY (CURRENT) USE OF ASPIRIN 01/14/2017 JONNATHAN MALLOY [...] APRN Ot I25.10 ATHSCL HEART DISEASE OF [place] CORONARY 01/18/2017 JONNATHAN MALLOY APRN Ot I25.2 OLD MYOCARDIAL INFARCTION 01/18/2017 JONNATHAN MALLOY APRN Ot I48.91 UNSPECIFIED ATRIAL FIBRILLATION 01/18/2017 JONNATHAN MALLOY APRN Ot J45.909 UNSPECIFIED ASTHMA, UNCOMPLICATED 01/18/2017 JONNATHAN MALLOY APRN Ot K21.9 GASTRO-ESOPHAGEAL REFLUX DISEASE WITHOUT 01/18/2017 JONNATHAN MALLOY APRN Ot R06.00 DYSPNEA, UNSPECIFIED 01/18/2017 JONNATHAN MALLOY APRN Ot Z79.82 MS SQL DBA (CURRENT) USE OF ASPIRIN 01/18/2017 JONNATHAN MALLOY APRN Ot Z87.81 PERSONAL HISTORY OF (HEALED) TRAUMATIC F 01/18/2017 JONNATHAN MALLOY APRN Ot Z90.710 ACQUIRED ABSENCE OF BOTH CERVIX AND UTER 01/18/2017 JONNATHAN MALLOY APRN Ot Z98.51 TUBAL LIGATION STATUS 03/28/2017 DEANNA ROMERO DOA K Ot E03.9 HYPOTHYROIDISM, UNSPECIFIED 03/28/2017 NICK DO CARISSA K Ot E78.00 PURE HYPERCHOLESTEROLEMIA, UNSPECIFIED 03/28/2017 NICK SALAZAR CARISSA K Ot F31.9 BIPOLAR DISORDER, UNSPECIFIED 03/28/2017 NICK SALAZAR CARISSA K Ot F41.9 ANXIETY DISORDER, UNSPECIFIED 03/28/2017 NICK DO CARISSA K Ot G43.909 MIGRAINE, UNSP, NOT INTRACTABLE, WITHOUT 03/28/2017 NICK DO CARISSA K Ot G47.33 OBSTRUCTIVE SLEEP APNEA (ADULT) (PEDIATR 03/28/2017 NICK DO CARISSA K Ot I10 ESSENTIAL (PRIMARY) HYPERTENSION 03/28/2017 NICK DO CARISSA K Ot I25.10 ATHSCL HEART DISEASE OF [place] CORONARY 03/28/2017 NICK DO CARISSA K Ot I25.2 OLD MYOCARDIAL INFARCTION 03/28/2017 NICK DO CARISSA K Ot I48.91 UNSPECIFIED ATRIAL FIBRILLATION 03/28/2017 CARISSA ROMERO DO Ot I80.02 PHLEBITIS AND THOMBOPHLB OF SUPERFIC VES 03/28/2017 CARISSA ROMERO DO Ot J44.9 CHRONIC OBSTRUCTIVE PULMONARY DISEASE, U 03/28/2017 CARISSA ROMERO DO Ot M19.90 UNSPECIFIED OSTEOARTHRITIS, UNSPECIFIED 03/28/2017 CARISSA ROMERO DO Ot M25.562 PAIN IN LEFT KNEE 03/28/2017 CARISSA ROMERO DO Ot Z79.01 MS SQL DBA (CURRENT) USE OF ANTICOAGULANT 03/28/2017 CARISSA ROMERO DO Ot Z79.82 MS SQL DBA (CURRENT) USE OF ASPIRIN 03/28/2017 CARISSA ROMERO DO, Ot Z87.01 PERSONAL HISTORY [...] DO Ot I25.10 ATHSCL HEART DISEASE OF [place] CORONARY 03/31/2017 CARISSA ROMERO DO Ot I25.2 OLD MYOCARDIAL INFARCTION 03/31/2017 CARISSA ROMERO DO Ot I48.91 UNSPECIFIED ATRIAL FIBRILLATION 03/31/2017 CARISSA ROMERO DO Ot I80.02 PHLEBITIS AND THOMBOPHLB OF SUPERFIC VES 03/31/2017 CARISSA ROMERO DO Ot J44.9 CHRONIC OBSTRUCTIVE PULMONARY DISEASE, U 03/31/2017 CARISSA ROMERO DO Ot M19.90 UNSPECIFIED OSTEOARTHRITIS, UNSPECIFIED 03/31/2017 CARISSA ROMERO DO Ot M25.562 PAIN IN LEFT KNEE 03/31/2017 NICK SALAZAR CARISSA Mejia Ot Z79.01 MS SQL DBA (CURRENT) USE OF ANTICOAGULANT 03/31/2017 NICK SALAZAR CARISSA Roberto Ot Z79.82 MS SQL DBA (CURRENT) USE OF ASPIRIN 03/31/2017 NICK SALAZAR CARISSA Mejia Ot Z87.01 PERSONAL HISTORY OF PNEUMONIA (RECURRENT 03/31/2017 NICK ASLAZAR CARISSA Mejia Ot Z87.09 PERSONAL HISTORY OF OTHER DISEASES OF TH 03/31/2017 NICK SALAZAR CARISSA Mejia Ot Z90.49 ACQUIRED ABSENCE OF OTHER SPECIFIED PART 03/31/2017 NICK SALAZAR CARISSA Mejia Ot Z90.710 ACQUIRED ABSENCE OF BOTH CERVIX AND UTER 03/31/2017 NICK SALAZAR CARISSA Mejia Ot Z98.51 TUBAL LIGATION STATUS 05/24/2017 SCARLET GARRETT APRN Ot M51.36 OTHER INTERVERTEBRAL DISC DEGENERATION, 05/24/2017 SCARLET GARRETT APRN Ot 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 06/08/2017 TASHA LU, HUGH Ba Ot E03.9 HYPOTHYROIDISM, UNSPECIFIED 06/08/2017 HUGH CORDOVA MD Ot E78.00 PURE HYPERCHOLESTEROLEMIA, UNSPECIFIED 06/08/2017 HUGH CORDOVA MD Ot F31.9 BIPOLAR DISORDER, UNSPECIFIED 06/08/2017 HUGH CORDOVA MD Ot F41.9 ANXIETY DISORDER, UNSPECIFIED 06/08/2017 HUGH CORDOVA MD Ot G43.909 MIGRAINE, UNSP, NOT INTRACTABLE, WITHOUT 06/08/2017 HUGH CORDOVA MD Ot G47.30 SLEEP APNEA, UNSPECIFIED 06/08/2017 HUGH CORDOVA MD Ot I10 ESSENTIAL (PRIMARY) HYPERTENSION 06/08/2017 HUGH CORDOVA MD Ot I25.10 ATHSCL HEART DISEASE OF [place] CORONARY 06/08/2017 HUGH CORDOVA MD, Ot I25.2 OLD MYOCARDIAL INFARCTION 06/08/2017 HUGH CORDOVA MD, Ot I48.91 UNSPECIFIED ATRIAL FIBRILLATION 06/08/2017 HUGH CORDOVA MD, Ot I73.9 PERIPHERAL VASCULAR DISEASE, UNSPECIFIED 06/08/2017 HUGH CORDOVA MD, Ot J44.9 CHRONIC OBSTRUCTIVE PULMONARY DISEASE, U 06/08/2017 HUGH CORDOVA MD, Ot R04.0 EPISTAXIS 06/08/2017 HUGH CORDOVA MD, Ot Z79.01 MS SQL DBA (CURRENT) USE OF ANTICOAGULANT 06/08/2017 HUGH CORDOVA MD, Ot Z79.82 HALFWAY (CURRENT) USE OF ASPIRIN 06/08/2017 HUGH CORDOVA [...] ARANA Ot I25.10 ATHSCL HEART DISEASE OF [place] CORONARY 06/09/2017 MOLLY ARANA Ot I25.2 OLD MYOCARDIAL INFARCTION 06/09/2017 MOLLY ARANA Ot I48.91 UNSPECIFIED ATRIAL FIBRILLATION 06/09/2017 MOLLY ARANA Ot I73.9 PERIPHERAL VASCULAR DISEASE, UNSPECIFIED 06/09/2017 MOLLY ARANA Ot J34.89 OTHER SPECIFIED DISORDERS OF NOSE AND NA 06/09/2017 MOLLY ARANA Ot J45.909 UNSPECIFIED ASTHMA, UNCOMPLICATED 06/09/2017 MOLLY ARANA Ot R04.0 EPISTAXIS 06/09/2017 MOLLY ARANA Ot Z79.01 MS SQL DBA (CURRENT) USE OF ANTICOAGULANT 06/09/2017 MOLLY ARANA Ot Z79.82 HALFWAY (CURRENT) USE OF ASPIRIN 06/09/2017 MOLLY ARANA Ot Z87.01 PERSONAL HISTORY OF PNEUMONIA (RECURRENT 06/09/2017 MOLLY ARANA Ot Z87.09 PERSONAL HISTORY OF OTHER DISEASES OF TH 06/09/2017 MOLLY ARANA Ot Z90.49 ACQUIRED ABSENCE OF OTHER SPECIFIED PART 06/09/2017 MOLLY ARANA Ot Z90.710 ACQUIRED ABSENCE OF BOTH CERVIX AND UTER 06/09/2017 MOLLY ARANA Ot Z98.51 TUBAL LIGATION STATUS 06/10/2017 HUGH CORDOVA MD Ot E03.9 HYPOTHYROIDISM, UNSPECIFIED 06/10/2017 HUGH CORDOVA [...] MD Ot I25.10 ATHSCL HEART DISEASE OF [place] CORONARY 06/10/2017 HUGH CORDOVA MD Ot I25.2 OLD MYOCARDIAL INFARCTION 06/10/2017 HUGH CORDOVA MD Ot I48.91 UNSPECIFIED ATRIAL FIBRILLATION 06/10/2017 HUGH CORDOVA MD Ot I73.9 PERIPHERAL VASCULAR DISEASE, UNSPECIFIED 06/10/2017 HUGH CORDOVA MD, Ot J44.9 CHRONIC OBSTRUCTIVE PULMONARY DISEASE, U 06/10/2017 HUGH CORDOVA MD, Ot R04.0 EPISTAXIS 06/10/2017 HUGH CORDOVA MD, Ot Z79.01 HALFWAY (CURRENT) USE OF ANTICOAGULANT 06/10/2017 HUGH CORDOVA MD Ot Z79.82 HALFWAY (CURRENT) USE OF ASPIRIN 06/10/2017 HUGH CORDOVA [...] ARANA Ot I25.10 ATHSCL HEART DISEASE OF [place] CORONARY 06/11/2017 MOLLY ARANA Ot I25.2 OLD MYOCARDIAL INFARCTION 06/11/2017 MOLLY ARANA Ot I48.91 UNSPECIFIED ATRIAL FIBRILLATION 06/11/2017 MOLLY ARANA Ot I73.9 PERIPHERAL VASCULAR DISEASE, UNSPECIFIED 06/11/2017 MOLLY ARANA Ot J34.89 OTHER SPECIFIED DISORDERS OF NOSE AND NA 06/11/2017 MOLLY ARANA Ot J45.909 UNSPECIFIED ASTHMA, UNCOMPLICATED 06/11/2017 MOLLY ARANA Ot R04.0 EPISTAXIS 06/11/2017 MOLLY ARANA Ot Z79.01 MS SQL DBA (CURRENT) USE OF ANTICOAGULANT 06/11/2017 MOLLY ARANA Ot Z79.82 HALFWAY (CURRENT) USE OF ASPIRIN 06/11/2017 MOLLY ARANA [...] ROMERO DO Ot E03.9 HYPOTHYROIDISM, UNSPECIFIED 07/18/2017 CARISSA ROMERO DO Ot E78.00 PURE HYPERCHOLESTEROLEMIA, UNSPECIFIED 07/18/2017 DEANNA ROMERO DOA K Ot F31.9 BIPOLAR DISORDER, UNSPECIFIED 07/18/2017 CARISSA ROMERO DO Ot F41.9 ANXIETY DISORDER, UNSPECIFIED 07/18/2017 DEANNA ROMERO DOA K Ot G43.909 MIGRAINE, UNSP, NOT INTRACTABLE, WITHOUT 07/18/2017 NICK SALAZAR CARISSA K Ot G47.33 OBSTRUCTIVE SLEEP APNEA (ADULT) (PEDIATR 07/18/2017 DEANNA ROMERO DOA Roberto Ot I10 ESSENTIAL (PRIMARY) HYPERTENSION 07/18/2017 NICK SALAZAR CARISSA K Ot I25.10 ATHSCL HEART DISEASE OF [place] CORONARY 07/18/2017 CARISSA ROMERO DO Ot I25.2 OLD MYOCARDIAL INFARCTION 07/18/2017 CARISSA ROMERO DO Ot I48.91 UNSPECIFIED ATRIAL FIBRILLATION 07/18/2017 CARISSA ROMERO DO K Ot I80.02 PHLEBITIS AND THOMBOPHLB OF SUPERFIC VES 07/18/2017 CARISSA ROMERO DO Ot J44.9 CHRONIC OBSTRUCTIVE PULMONARY DISEASE, U 07/18/2017 CARISSA ROMERO DO Ot M19.90 UNSPECIFIED OSTEOARTHRITIS, UNSPECIFIED 07/18/2017 CARISSA ROMERO DO Ot M25.562 PAIN IN LEFT KNEE 07/18/2017 CARISSA ROMERO DO Ot Z79.01 HALFWAY (CURRENT) USE OF ANTICOAGULANT 07/18/2017 CARISSA ROMERO DO Ot Z79.82 MS SQL DBA (CURRENT) USE OF ASPIRIN 07/18/2017 CARISSA ROMERO [...] SPECIFIED ACUTE OR CH 02/15/2018 ESTELA SALINAS [employer] CLE[employer]ER HAND Ot G47.30 SLEEP APNEA, UNSPECIFIED 02/15/2018 ESTELA SALINAS [employer] CLE[employer] HAND Ot I48.91 UNSPECIFIED ATRIAL FIBRILLATION 02/15/2018 ESTELA SALINAS [employer] CLE[employer] HAND Ot J44.9 CHRONIC OBSTRUCTIVE PULMONARY DISEASE, U 02/15/2018 ESTELA SALINAS [employer] CLE[employer] HAND Ot R06.00 DYSPNEA, UNSPECIFIED 02/15/2018 ESTELA SALINAS [employer] CLE[employer] HAND Ot R07.9 CHEST PAIN, UNSPECIFIED 02/15/2018 ESTELA SALINAS [employer] CLE[employer] HAND Ot Z79.01 MS SQL DBA (CURRENT) USE OF ANTICOAGULANT 02/15/2018 ZARI LU, SAIDA R Ot R06.2 WHEEZING 02/15/2018 SCARLET GARRETT WHISKEY REGAUGER Ot M51.36 OTHER INTERVERTEBRAL DISC DEGENERATION, 02/15/2018 SCARLET GARRETT WHISKEY REGAUGER Ot 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 [...] APRN Ot I25.10 ATHSCL HEART DISEASE OF [place] CORONARY 02/15/2018 JONNATHAN MALLOY APRN Ot I25.2 OLD MYOCARDIAL INFARCTION 02/15/2018 JONNATHAN MALLOY APRN Ot I48.91 UNSPECIFIED ATRIAL FIBRILLATION 02/15/2018 JONNATHAN MALLOY APRN Ot J44.9 CHRONIC OBSTRUCTIVE PULMONARY DISEASE, U 02/15/2018 JONNATHAN MALLOY APRN Ot K52.9 NONINFECTIVE GASTROENTERITIS AND COLITIS 02/15/2018 JONNATHAN MALLOY APRN Ot R11.0 NAUSEA 02/15/2018 JONNATHAN MALLOY APRN Ot Z79.82 HALFWAY (CURRENT) USE OF ASPIRIN 02/15/2018 JONNATHAN MALLOY [...] APRN Ot I25.10 ATHSCL HEART DISEASE OF [place] CORONARY 02/17/2018 JONNATHAN MALLOY APRN Ot I25.2 OLD MYOCARDIAL INFARCTION 02/17/2018 JONNATHAN MALLOY APRN Ot I48.91 UNSPECIFIED ATRIAL FIBRILLATION 02/17/2018 JONNATHAN MALLOY APRN Ot J44.9 CHRONIC OBSTRUCTIVE PULMONARY DISEASE, U 02/17/2018 JONNATHAN MALLOY APRN Ot K52.9 NONINFECTIVE GASTROENTERITIS AND COLITIS 02/17/2018 JONNATHAN MALLOY APRN Ot R11.0 NAUSEA 02/17/2018 JONNATHAN MALLOY APRN Ot Z79.82 MS SQL DBA (CURRENT) USE OF ASPIRIN 02/17/2018 JONNATHAN MALLOY [...] MD Ot I25.10 ATHSCL HEART DISEASE OF [place] [place] CORONARY 02/21/2018 EFRAIN PARKS MD Ot I25.2 OLD MYOCARDIAL INFARCTION 02/21/2018 EFRAIN PARKS MD Ot I48.91 UNSPECIFIED ATRIAL FIBRILLATION 02/21/2018 ERFAIN PARKS MD Ot I73.9 PERIPHERAL VASCULAR DISEASE, [...] ADULT 02/21/2018 EFRAIN PARKS MD, Ot Z79.01 HALFWAY (CURRENT) USE OF ANTICOAGULANT 02/21/2018 EFRAIN PARKS MD, Ot Z79.82 HALFWAY (CURRENT) USE OF ASPIRIN 02/21/2018 EFRAIN PARKS MD, Ot Z79.899 OTHER HALFWAY (CURRENT) DRUG THERAPY 02/21/2018 EFRAIN PARKS MD, Ot Z91.19 PATIENT'S NONCOMPLIANCE W [facility] 02/21/2018 EFRAIN PARKS MD, Ot E03.9 HYPOTHYROIDISM, UNSPECIFIED 02/21/2018 EFRAIN PARKS MD, Ot E66.01 MORBID (SEVERE) OBESITY DUE TO EXCESS CA 02/21/2018 EFRAIN PARKS MD, Ot E78.5 HYPERLIPIDEMIA, UNSPECIFIED 02/21/2018 EFRAIN PARKS MD, Ot F32.9 MAJOR DEPRESSIVE DISORDER, SINGLE EPISOD 02/21/2018 EFRAIN PARKS MD, Ot G47.30 SLEEP APNEA, UNSPECIFIED 02/21/2018 EFRAIN PARKS MD, Ot I25.10 ATHSCL HEART DISEASE OF [place] CORONARY 02/21/2018 EFRAIN PARKS MD, Ot I25.2 OLD MYOCARDIAL INFARCTION 02/21/2018 EFRAIN PARKS MD, Ot I48.91 UNSPECIFIED ATRIAL FIBRILLATION 02/21/2018 EFRAIN [...] ADULT 02/21/2018 EFRAIN PARKS MD, Ot Z79.01 HALFWAY (CURRENT) USE OF ANTICOAGULANT 02/21/2018 EFRAIN PARKS MD, Ot Z79.82 HALFWAY (CURRENT) USE OF ASPIRIN 02/21/2018 EFRAIN PARKS MD, Ot Z79.899 OTHER HALFWAY (CURRENT) DRUG THERAPY 02/21/2018 EFRAIN PARKS MD, Ot Z91.19 PATIENT'S NONCOMPLIANCE W [facility] 02/22/2018 SCARLET GARRETT APRN Ot L53.9 ERYTHEMATOUS CONDITION, UNSPECIFIED 02/22/2018 SCARLET GARRETT APRN Ot M79.89 OTHER SPECIFIED SOFT TISSUE DISORDERS 02/23/2018 JAMES PHELAN MD Ot E03.9 HYPOTHYROIDISM, UNSPECIFIED 02/23/2018 JAMES PHELAN MD Ot E78.00 PURE HYPERCHOLESTEROLEMIA, UNSPECIFIED 02/23/2018 JAMES PHELAN MD Ot F31.9 BIPOLAR DISORDER, UNSPECIFIED 02/23/2018 JAMES PHELAN MD Ot F41.9 ANXIETY DISORDER, UNSPECIFIED 02/23/2018 JAMES PHELAN MD Ot G43.909 MIGRAINE, UNSP, NOT INTRACTABLE, WITHOUT 02/23/2018 JAMES PHELAN MD Ot G47.30 SLEEP APNEA, UNSPECIFIED 02/23/2018 JAMES PHELAN MD Ot I10 ESSENTIAL (PRIMARY) HYPERTENSION 02/23/2018 JAMES PHELAN MD Ot I25.10 ATHSCL HEART DISEASE OF [place] CORONARY 02/23/2018 JAMES PHELAN MD, Ot I25.2 [...] IN LEFT LOWER LEG 02/23/2018 JAMES PHELAN MD Ot Z79.01 HALFWAY (CURRENT) USE OF ANTICOAGULANT 02/23/2018 JAMES PHELAN MD, Ot Z79.82 HALFWAY (CURRENT) USE OF ASPIRIN 02/23/2018 JAMES PHELAN [...] G47.30 SLEEP APNEA, UNSPECIFIED 02/25/2018 JAMES PHELAN MD Ot I10 ESSENTIAL (PRIMARY) HYPERTENSION 02/25/2018 JAMES PHELAN MD, Ot I25.10 ATHSCL HEART DISEASE OF [place] CORONARY 02/25/2018 JAMES PHELAN MD, Ot I25.2 [...] LEG 02/25/2018 JAMES PHELAN MD, Ot Z79.01 HALFWAY (CURRENT) USE OF ANTICOAGULANT 02/25/2018 JAMES PHELAN MD, Ot Z79.82 MS SQL DBA (CURRENT) USE OF ASPIRIN 02/25/2018 JAMES PHELAN MD, Ot Z87.01 PERSONAL HISTORY OF PNEUMONIA (RECURRENT 02/25/2018 JAMES PHELAN MD, Ot Z90.710 ACQUIRED ABSENCE OF BOTH CERVIX AND UTER 02/25/2018 JAMES PHELAN MD, Ot Z90.89 ACQUIRED ABSENCE OF OTHER ORGANS 02/25/2018 JAMES PHELAN MD, Ot Z98.51 TUBAL LIGATION STATUS 02/25/2018 JAMES PHELAN MD, Ot Z98.890 OTHER SPECIFIED POSTPROCEDURAL STATES 03/14/2018 SCARLET GARRETT WHISKEY REGAUGER Ot L53.9 ERYTHEMATOUS CONDITION, UNSPECIFIED 03/14/2018 SCARLET GARRETT WHISKEY REGAUGER Ot M79.89 OTHER SPECIFIED SOFT TISSUE DISORDERS 03/29/2018 SCARLET GARRETT WHISKEY REGAUGER Ot L53.9 ERYTHEMATOUS CONDITION, UNSPECIFIED 03/29/2018 SCARLET GARRETT WHISKEY REGAUGER Ot M79.89 OTHER SPECIFIED SOFT TISSUE DISORDERS 04/21/2018 STEFAN ROBLES MD Ot R22.31 LOCALIZED SWELLING, MASS AND LUMP, RIGHT 04/21/2018 STEFAN ROBLES MD Ot R58 HEMORRHAGE, NOT ELSEWHERE CLASSIFIED 04/23/2018 STEFAN ROBLES MD Ot R22.31 LOCALIZED SWELLING, MASS AND LUMP, RIGHT 04/23/2018 TRAVIS LU, STEFAN Lazo Ot R58 HEMORRHAGE, NOT ELSEWHERE CLASSIFIED 05/25/2018 JAYDEN WELCHP Ot E03.9 HYPOTHYROIDISM, UNSPECIFIED 05/25/2018 REBEKAH, JAYDEN BOBBIN CLEANER HAND Ot E78.00 PURE HYPERCHOLESTEROLEMIA, UNSPECIFIED 05/25/2018 REBEKAH, JAYDEN BOBBIN CLEANER HAND Ot F31.9 BIPOLAR DISORDER, UNSPECIFIED 05/25/2018 REBEKAH, JAYDEN BOBBIN CLEANER HAND Ot F41.9 ANXIETY DISORDER, UNSPECIFIED 05/25/2018 REBEKAH, JAYDEN BOBBIN CLEANER HAND Ot G43.909 MIGRAINE, UNSP, NOT INTRACTABLE, WITHOUT 05/25/2018 REBEKAH, JAYDEN BOBBIN CLEANER HAND Ot G47.30 SLEEP APNEA, UNSPECIFIED 05/25/2018 REBEKAH, JAYDEN BOBBIN CLEANER HAND Ot I10 ESSENTIAL (PRIMARY) HYPERTENSION 05/25/2018 REBEKAH, JAYDEN BOBBIN CLEANER HAND Ot I25.10 ATHSCL HEART DISEASE OF [place] CORONARY 05/25/2018 REBEKAH, JAYDEN BOBBIN CLEANER HAND Ot I25.2 OLD MYOCARDIAL INFARCTION 05/25/2018 REBEKAH JAYDEN BOBBIN CLEANER HAND Ot I48.91 UNSPECIFIED ATRIAL FIBRILLATION 05/25/2018 REBEKAH, JAYDEN BOBBIN CLEANER HAND Ot I73.9 PERIPHERAL VASCULAR DISEASE, UNSPECIFIED 05/25/2018 REBEKAH, JAYDEN BOBBIN CLEANER HAND Ot J20.9 ACUTE BRONCHITIS, UNSPECIFIED 05/25/2018 REBEKAH, JAYDEN BOBBIN CLEANER HAND Ot J44.0 CHRONIC OBSTRUCTIVE PULMON DISEASE W ACU 05/25/2018 REBEKAH JAYDEN BOBBIN CLEANER HAND Ot J44.1 CHRONIC OBSTRUCTIVE PULMONARY DISEASE W 05/25/2018 REBEKAH JAYDEN BOBBIN CLEANER HAND Ot R06.09 OTHER FORMS OF DYSPNEA 05/25/2018 REBEKAH JAYDEN BOBBIN CLEANER HAND Ot Z79.01 MS SQL DBA (CURRENT) USE OF ANTICOAGULANT 05/25/2018 REBEKAH JAYDEN BOBBIN CLEANER HAND Ot Z79.51 MS SQL DBA (CURRENT) USE OF INHALED STERO 05/25/2018 REBEKAH JAYDEN BOBBIN CLEANER HAND Ot Z79.52 MS SQL DBA (CURRENT) USE OF SYSTEMIC STER 05/25/2018 REBEKAH JAYDEN BOBBIN CLEANER HAND Ot Z79.82 HALFWAY (CURRENT) USE OF ASPIRIN 05/25/2018 REBEKAH JAYDEN BOBBIN CLEANER HAND Ot Z82.49 FAMILY HX OF ISCHEM HEART DIS AND OTH DI 05/25/2018 JAYDEN WELCH BOBBIN CLEANER HAND Ot Z87.01 PERSONAL HISTORY OF PNEUMONIA (RECURRENT 05/25/2018 JAYDEN WELCH BOBBIN CLEANER HAND Ot Z87.09 PERSONAL HISTORY OF OTHER DISEASES OF TH 05/25/2018 REBEKAHJAYDEN Beckett BOBBIN CLEANER HAND Ot Z90.49 ACQUIRED ABSENCE OF OTHER SPECIFIED PART 05/25/2018 REBEKAHJAYDEN Beckett BOBBIN CLEANER HAND Ot Z90.710 ACQUIRED ABSENCE OF BOTH CERVIX AND UTER 05/25/2018 JAYDEN WELCH BOBBIN CLEANER HAND Ot Z98.51 TUBAL LIGATION STATUS 05/25/2018 REBEKAHJAYDEN Beckett BOBBIN CLEANER HAND Ot Z98.890 OTHER SPECIFIED POSTPROCEDURAL STATES 05/27/2018 REBEKAHJAYDEN BeckettP Ot E03.9 HYPOTHYROIDISM, UNSPECIFIED 05/27/2018 REBEKAHJAYDEN Beckett BOBBIN CLEANER HAND Ot E78.00 PURE HYPERCHOLESTEROLEMIA, UNSPECIFIED 05/27/2018 REBEKAH, JAYDEN BOBBIN CLEANER HAND Ot F31.9 BIPOLAR DISORDER, UNSPECIFIED 05/27/2018 REBEKAHJAYDEN Beckett BOBBIN CLEANER HAND Ot F41.9 ANXIETY DISORDER, UNSPECIFIED 05/27/2018 REBEKAHJAYDEN Beckett BOBBIN CLEANER HAND Ot G43.909 MIGRAINE, UNSP, NOT INTRACTABLE, WITHOUT 05/27/2018 REBEKAH, JAYDEN BOBBIN CLEANER HAND Ot G47.30 SLEEP APNEA, UNSPECIFIED 05/27/2018 REBEKAH, JAYDEN BOBBIN CLEANER HAND Ot I10 ESSENTIAL (PRIMARY) HYPERTENSION 05/27/2018 REBEKAH, JAYDEN BOBBIN CLEANER HAND Ot I25.10 ATHSCL HEART DISEASE OF [place] CORONARY 05/27/2018 JAYDEN WELCH BOBBIN CLEANER HAND Ot I25.2 OLD MYOCARDIAL INFARCTION 05/27/2018 JAYDEN WELCH BOBBIN CLEANER HAND Ot I48.91 UNSPECIFIED ATRIAL FIBRILLATION 05/27/2018 REBEKAH JAYDEN BOBBIN CLEANER HAND Ot I73.9 PERIPHERAL VASCULAR DISEASE, UNSPECIFIED 05/27/2018 JAYDEN WELCH BOBBIN CLEANER HAND Ot J20.9 ACUTE BRONCHITIS, UNSPECIFIED 05/27/2018 JAYDEN WELCH BOBBIN CLEANER HAND Ot J44.0 CHRONIC OBSTRUCTIVE PULMON DISEASE W ACU 05/27/2018 JAYDEN WELCH BOBBIN CLEANER HAND Ot J44.1 CHRONIC OBSTRUCTIVE PULMONARY DISEASE W 05/27/2018 JAYDEN WELCH BOBBIN CLEANER HAND Ot R06.09 OTHER FORMS OF DYSPNEA 05/27/2018 JAYDEN WELCH BOBBIN CLEANER HAND Ot Z79.01 MS SQL DBA (CURRENT) USE OF ANTICOAGULANT 05/27/2018 JAYDEN WELCHP Ot Z79.51 HALFWAY (CURRENT) USE OF INHALED STERO 05/27/2018 JAYDEN WELCHP Ot Z79.52 MS SQL DBA (CURRENT) USE OF SYSTEMIC STER 05/27/2018 REBEKAHJAYDEN Beckett Ot Z79.82 HALFWAY (CURRENT) USE OF ASPIRIN 05/27/2018 REBEKAHJAYDEN Beckett Ot Z82.49 FAMILY HX OF ISCHEM HEART DIS AND OTH DI 05/27/2018 REBEKAHJAYDEN Beckett Ot Z87.01 PERSONAL HISTORY OF PNEUMONIA (RECURRENT 05/27/2018 REBEKAHJAYDEN Beckett Ot Z87.09 PERSONAL HISTORY OF OTHER DISEASES OF TH 05/27/2018 REBEKAHJAYDEN Beckett Ot Z90.49 ACQUIRED ABSENCE OF OTHER SPECIFIED PART 05/27/2018 REBEKAHJAYDEN BeckettP Ot Z90.710 ACQUIRED ABSENCE OF BOTH CERVIX AND UTER 05/27/2018 JAYDEN WELCHP Ot Z98.51 TUBAL LIGATION STATUS 05/27/2018 JAYDEN WELCH Ot Z98.890 OTHER SPECIFIED POSTPROCEDURAL STATES 05/31/2018 CHIENDU BAEZ Ot E03.9 HYPOTHYROIDISM, UNSPECIFIED 05/31/2018 CHINEDU BAEZ Ot E78.00 PURE HYPERCHOLESTEROLEMIA, UNSPECIFIED 05/31/2018 DESIERE BAEZIS Ot F31.9 BIPOLAR DISORDER, UNSPECIFIED 05/31/2018 DESIREE BAEZIS Ot F41.9 ANXIETY DISORDER, UNSPECIFIED 05/31/2018 DESIREE BAEZIS Ot I10 ESSENTIAL (PRIMARY) HYPERTENSION 05/31/2018 CHINEDU BAEZ Ot I25.10 ATHSCL HEART DISEASE OF [place] CORONARY 05/31/2018 CHINEDU BAEZ Ot I25.2 OLD MYOCARDIAL INFARCTION 05/31/2018 CHINEDU BAEZ Ot I48.91 UNSPECIFIED ATRIAL FIBRILLATION 05/31/2018 CHINEDU BAEZ Ot I73.9 PERIPHERAL VASCULAR DISEASE, UNSPECIFIED 05/31/2018 DESIREE BAEZIS Ot J44.1 CHRONIC OBSTRUCTIVE PULMONARY DISEASE W 05/31/2018 CHINEDU BAEZ Ot R06.02 SHORTNESS OF BREATH 05/31/2018 CHINEDU BAEZ Ot Z77.22 CNTCT W AND EXPSR TO ENVIRON TOBACCO SMO 05/31/2018 CHINEDU BAEZ Ot Z79.51 HALFWAY (CURRENT) USE OF INHALED STERO 05/31/2018 CHINEDU BAEZ Ot Z79.82 HALFWAY (CURRENT) USE OF ASPIRIN 05/31/2018 CHINEDU BAEZ Ot Z86.69 PERSONAL HISTORY OF DIS OF THE NERVOUS S 05/31/2018 BERNOT, CHINEDU Ot Z87.01 PERSONAL HISTORY OF PNEUMONIA (RECURRENT 05/31/2018 DESIREE BAEZIS Ot Z90.49 ACQUIRED ABSENCE OF OTHER SPECIFIED PART 05/31/2018 DESIREE BAEZIS Ot Z90.710 ACQUIRED ABSENCE OF BOTH CERVIX AND UTER 05/31/2018 DESIREE BAEZIS Ot Z98.51 TUBAL LIGATION STATUS 06/02/2018 CHINEDU BAEZ Ot E03.9 HYPOTHYROIDISM, UNSPECIFIED 06/02/2018 DESIREE BAEZIS Ot E78.00 PURE HYPERCHOLESTEROLEMIA, UNSPECIFIED 06/02/2018 DESIREE BAEZIS Ot F31.9 BIPOLAR DISORDER, UNSPECIFIED 06/02/2018 DESIREE BAEZIS Ot F41.9 ANXIETY DISORDER, UNSPECIFIED 06/02/2018 DESIREE BAEZIS Ot I10 ESSENTIAL (PRIMARY) HYPERTENSION 06/02/2018 DESIREE BAEZIS Ot I25.10 ATHSCL HEART DISEASE OF [place] CORONARY 06/02/2018 DESIREE BAEZIS Ot I25.2 OLD MYOCARDIAL INFARCTION 06/02/2018 DESIREE BAEZIS Ot I48.91 UNSPECIFIED ATRIAL FIBRILLATION 06/02/2018 DESIREE BAEZIS Ot I73.9 PERIPHERAL VASCULAR DISEASE, UNSPECIFIED 06/02/2018 DESIREE BAEZIS Ot J44.1 CHRONIC OBSTRUCTIVE PULMONARY DISEASE W 06/02/2018 CHINEDU BAEZ Ot R06.02 SHORTNESS OF BREATH 06/02/2018 DESIREE BAEZIS Ot Z77.22 CNTCT W AND EXPSR TO ENVIRON TOBACCO SMO 06/02/2018 DESIREE BAEZIS Ot Z79.51 MS SQL DBA (CURRENT) USE OF INHALED STERO 06/02/2018 DESIREE BAEZIS Ot Z79.82 MS SQL DBA (CURRENT) USE OF ASPIRIN 06/02/2018 DESIREE BAEZIS Ot Z86.69 PERSONAL HISTORY OF DIS OF THE NERVOUS S 06/02/2018 DESIREE BAEZIS Ot Z87.01 PERSONAL HISTORY OF PNEUMONIA (RECURRENT 06/02/2018 CHINEDU BAEZ Ot Z90.49 ACQUIRED ABSENCE OF OTHER SPECIFIED PART 06/02/2018 CHINEDU BAEZ Ot Z90.710 ACQUIRED ABSENCE OF BOTH CERVIX AND UTER 06/02/2018 DESIREE BAEZIS Ot Z98.51 TUBAL LIGATION STATUS Procedures There [...] culture - 08/25/16 16:00 Bacterial urine culture [id number] NRG COLONY COUNT 10,000/ML - 100,000/ML NRG [...] 02/23/18 15:57 Bacterial blood culture NG NRG Complete blood count (CBC) with automated [...] 05/25/18 18:25 BNP level 154.4 pg/mL <100.0 Complete blood count (CBC) with automated white blood cell (WBC) differential - 05/31/18 16:50 Blood leukocytes automated count (number/volume) 7.3 10*3/uL 4.3-11.0 Blood erythrocytes automated count (number/volume) 4.55 10*6/uL 4.35-5.85 Venous blood hemoglobin measurement (mass/volume) 13.4 g/dL 11.5-16.0 Blood hematocrit (volume fraction) 42 % 35-52 Automated erythrocyte mean corpuscular volume 91 [foz_us] 80-99 Automated erythrocyte mean corpuscular hemoglobin (mass per erythrocyte) 30 pg 25-34 Automated erythrocyte mean corpuscular hemoglobin concentration measurement ( mass/volume) 32 g/dL 32-36 Automated erythrocyte distribution width ratio 14.5 % 10.0-14.5 Automated blood platelet count (count/volume) 201 10*3/uL 130-400 Automated blood platelet mean volume measurement 9.2 [foz_us] 7.4-10.4 Automated blood neutrophils/100 leukocytes 49 % 42-75 Automated blood lymphocytes/100 leukocytes 40 % 12-44 Blood monocytes/100 leukocytes 8 % 0-12 Automated blood eosinophils/100 leukocytes 2 % 0-10 Automated blood basophils/100 leukocytes 1 % 0-10 Blood neutrophils automated count (number/volume) 3.6 10*3 1.8-7.8 Blood lymphocytes automated count (number/volume) 3.0 10*3 1.0-4.0 Blood monocytes automated count (number/volume) 0.6 10*3 0.0-1.0 Automated eosinophil count 0.2 10*3/uL 0.0-0.3 Automated blood basophil count (count/volume) 0.0 10*3/uL 0.0-0.1 Comprehensive metabolic panel - 05/31/18 16:50 Serum or plasma sodium measurement (moles/volume) 143 mmol/L 135-145 Serum or plasma potassium measurement (moles/volume) 3.7 mmol/L 3.6-5.0 Serum or plasma chloride measurement (moles/volume) 104 mmol/L 98-107 Carbon dioxide 28 mmol/L 21-32 Serum or plasma anion gap determination (moles/volume) 11 mmol/L 5-14 Serum or plasma urea nitrogen measurement (mass/volume) 13 mg/dL 7-18 Serum or plasma creatinine measurement (mass/volume) 0.82 mg/dL 0.60-1.30 Serum or plasma urea nitrogen/creatinine mass ratio 16 NRG Serum or plasma creatinine measurement with calculation of estimated glomerular filtration rate > NRG Serum or plasma glucose measurement (mass/volume) 100 mg/dL 70-105 Serum or plasma calcium measurement (mass/volume) 8.9 mg/dL 8.5-10.1 Serum or plasma total bilirubin measurement (mass/volume) 0.4 mg/dL 0.1-1.0 Serum or plasma alkaline phosphatase measurement (enzymatic activity/volume) 93 U/L 40-136 Serum or plasma aspartate aminotransferase measurement (enzymatic activity/ volume) 19 U/L 5-34 Serum or plasma alanine aminotransferase measurement (enzymatic activity/volume ) 18 U/L 0-55 Serum or plasma protein measurement (mass/volume) 6.4 g/dL 6.4-8.2 Serum or plasma albumin measurement (mass/volume) 3.9 g/dL 3.2-4.5 CALCIUM CORRECTED 9.0 mg/dL 8.5-10.1 Encounters ACCT No. Visit Date/Time Discharge Status Pt. Type Provider Facility Loc./Unit Complaint [id number] 05/31/2018 15:50:00 05/31/2018 17:58:00 DIS Emergency CHINEDU BAEZ [facility] ER SOB [id number] 05/25/2018 18:11:00 05/25/2018 19:49:00 DIS Emergency JAYDEN WELCH [facility] ER SOB [id number] 04/17/2018 18:40:00 04/17/2018 18:50:00 DIS Outpatient STEFAN ROBLES MD [facility] ER R ARM LUMP/BLOOD UNDER SKIN [id number] 03/24/2018 16:07:00 03/24/2018 23:59:59 CLS Preadmit MALGORZATA KENNEDY MD [facility] WOUNDCARE [id number] 02/23/2018 15:02:00 02/23/2018 17:19:00 DIS Emergency JAMES PHELAN MD [facility] ER L LEG CELLULITIS [id number] 02/20/2018 17:13:00 02/21/2018 15:27:00 DIS Inpatient CHARLY LU, EFRAIN Gutierrez [facility] ICU SOB [id number] 02/17/2018 10:34:00 02/17/2018 23:59:59 CLS Outpatient SCARLET GARRETT APRN [facility] RAD PAIN AND SWELLING OF LEFT LOWER LEG [id number] 02/15/2018 09:44:00 02/15/2018 13:00:00 DIS Emergency JONNATHAN MALLOY APRN [facility] ER STOMACH PAIN; CHEST PAIN [id number] 06/09/2017 15:00:00 06/09/2017 16:58:00 DIS Emergency MOLLY ARANA [facility] ER NEEDS ANTIBIOTIC HERE LAST NIGHT FOR NOSE BLEED [id number] 06/08/2017 21:55:00 06/08/2017 23:20:00 DIS Emergency BRUEGGEMANN MD, HUGH Ba [facility] ER NOSE BLEED FOR 45 MINUTES - BLOOD THINNERS [id number] 04/29/2017 15:16:00 04/29/2017 23:59:59 CLS Outpatient TAMISCARLET Roxanne TORO [facility] RAD M554.42 [id number] 03/28/2017 15:34:00 03/28/2017 18:53:00 DIS Emergency CARISSA ROMERO DO [facility] ER L LEG SWELLING/PAIN [id number] 01/12/2017 15:46:00 01/12/2017 17:08:00 DIS Emergency JONNATHAN MALLOY WHISKEY REGAUGER [facility] ER TROUBLE BREATHING; HEAVINESS IN CHEST [id number] 11/29/2016 23:07:00 11/30/2016 02:36:00 DIS Emergency HUGH CORDOVA MD [facility] ER D/N FEVER WEAK [id number] 08/25/2016 14:30:00 08/25/2016 18:32:00 DIS Emergency ZHANE LU, JAMES Rodríguez [facility] ER DIZZINESS/NAUSEA/ SHAKEY LEFT CALF PAIN [id number] 05/12/2016 23:38:00 05/13/2016 01:24:00 DIS Emergency CARISSA ROMERO DO [facility] ER N/V/D [id number] 02/25/2016 14:56:00 02/25/2016 23:59:59 CLS Outpatient ZARI LU, SAIDA Oliveira [facility] RAD WHEEZING [id number] 08/13/2015 08:10:00 08/13/2015 23:59:59 CLS Outpatient ESTELA SALINAS [facility] CARD CHEST PAIN, PALPITATIONS,AFIB [id number] 06/16/2015 12:33:00 06/16/2015 14:55:00 DIS Emergency SANDRITA ALVARADO MD [facility] ER SOB/COPD [id number] 04/05/2015 09:50:00 04/05/2015 12:07:00 DIS Emergency SANDRITA ALVARADO MD [facility] ER SOA [id number] 04/02/2015 12:02:00 04/04/2015 09:45:00 DIS Inpatient SAIDA HAMEED MD [facility] 4TH COPD,EXACERBATION [id number] 02/21/2015 15:46:00 02/21/2015 23:59:59 CLS Outpatient SAIDA HAMEED MD [facility] RAD BRONCHITIS [id number] 11/20/2014 23:05:00 11/22/2014 09:45:00 DIS Inpatient SAIDA HAMEED MD [facility] 4TH BLEACH FUMES EXPOSURE, COPD EXACERBATION [id number] 10/25/2014 14:21:00 10/25/2014 19:30:00 DIS Emergency JAMES PHELAN MD [facility] ER LEFT GROIN PAIN [id number] 10/13/2013 20:46:00 10/14/2013 00:44:00 DIS Emergency JULIANA HERNANDEZ DO [facility] ER L LEG PAIN; CHEST PAIN [id number] 09/25/2013 12:37:00 09/25/2013 23:59:59 CLS Outpatient TRACY JOSEPH DO [facility] RT COPD,AFIB [id number] 08/25/2013 00:35:00 08/25/2013 12:05:00 DIS Inpatient SAIDA HAMEED MD [facility] CSD CHEST PAIN, SUBTHERAPEUTIC INR [id number] 07/04/2013 11:07:00 07/04/2013 23:59:59 CLS Outpatient SAIDA HAMEED MD [facility] RAD SWELLING,PAIN [id number] 06/28/2013 16:29:00 06/28/2013 17:24:00 DIS Emergency CARISSA ROMERO DO [facility] ER VOMITING,COUGH, POST EXPOSURE TO CLOROX [id number] 05/21/2013 20:58:00 05/25/2013 10:45:00 DIS Inpatient SAIDA HAMEED MD [facility] 4TH COPD EXACERBATION; WEAKNESS [id number] 05/21/2013 13:28:00 05/21/2013 15:42:00 DIS Emergency JONNATHAN MALLOY WHISKEY REGAUGER [facility] ER SOA CONGESTION R ARM PAIN [id number] 03/24/2013 17:10:00 03/25/2013 09:50:00 DIS Inpatient VIELKA MORENO MD [facility] ICU CHEST PAIN [id number] 03/01/2013 01:10:00 03/01/2013 14:29:00 DIS Inpatient ZARI LU, SAIDA Oliveira [facility] 4TH ACUTE EXACERBATION OF COPD [id number] 02/13/2013 12:59:00 02/13/2013 14:18:00 DIS Emergency JONNATHAN MALLOY APRN [facility] ER LEFT LEG/GROIN PAIN [id number] 12/27/2012 13:08:00 12/27/2012 15:00:00 DIS Emergency JONNATHAN MALLOY WHISKEY REGAUGER [facility] ER RIGHT ARM NUMBNESS/LEFT THIGH KNOT [id number] 12/02/2012 08:45:00 12/02/2012 23:59:59 CLS Outpatient JAMES PHELAN MD [facility] LAB SUPRATHERAPEUTIC INR [id number] 11/30/2012 15:06:00 11/30/2012 18:11:00 DIS Emergency JAMES PHELAN MD [facility] ER SOA,HEADACHE, DIZZINESS [id number] 10/30/2012 11:45:00 10/30/2012 23:59:59 CLS Outpatient [id number] 08/20/2012 10:02:00 08/20/2012 23:59:59 CLS Outpatient [id number] 10/25/2014 14:22:00 Document Registration [id number] 10/25/2014 14:22:00 Document Registration [id number] 10/25/2014 14:21:00 Document Registration [id number] 10/25/2014 14:21:00 Document Registration [id number] 10/25/2014 14:21:00 Document Registration [id number] 10/25/2014 14:21:00 Document Registration [id number] 10/25/2014 14:21:00 Document Registration [id number] 10/25/2014 14:21:00 Document Registration [id number] 10/25/2014 14:21:00 Document Registration [id number] 07/01/2014 22:30:00 Document Registration [id number] 06/13/2012 19:15:00 Document Registration [id number] 02/23/2012 01:00:00 Document Registration [id number] 12/03/2011 00:00:00 Document Registration [id number] 11/12/2011 21:51:00 Document Registration [id number] 10/13/2011 08:28:00 Document Registration [id number] 09/03/2011 12:33:00 Document Registration [id number] 08/21/2011 20:45:00 Document Registration [id number] 03/24/2011 20:48:00 Document Registration [id number] 01/24/2011 21:19:00 Document Registration [id number] 09/28/2010 18:20:00 Document Registration [id number] 04/29/2010 21:21:00 Document Registration [id number] 02/10/2010 09:58:00 Document Registration [id number] 01/29/2010 14:43:00 Document Registration [id number] 11/25/2009 11:02:00 Document Registration [id number] 11/13/2009 23:33:00 Document Registration [id number] 10/28/2009 11:54:00 Document Registration [id number] 09/27/2009 10:28:00 Document Registration [id number] 09/20/2009 15:31:00 Document Registration [id number] 07/29/2009 13:39:00 Document Registration [id number] 07/29/2009 12:23:00 Document Registration [id number] 11/20/2014 19:15:56 ACT Document Registration [id number] 12/02/2017 15:15:00 12/02/2017 23:59:59 [facility] EL[facility] Chaparro [facility]
[2018-08-30] MEDS ORDERED: NS IV 1000 ML 1,000 ML IV SCH ×2 (10:15→12:04)
[2018-08-30 10:35] LABS: HEMOGLOBIN 13.5 G/DL (11.5-16.0); MEAN PLATELET VOLUME 9.2 FL (7.4-10.4); RED CELL DISTRIBUTION WIDTH 14.5 % (10.0-14.5); WHITE BLOOD COUNT 5.8 10^3/uL (4.3-11.0)
[2018-08-30] MEDS ORDERED: AMLO5TAB9 PO (10:44)
[2018-08-30 10:48] LABS: PROTHROMBIN TIME PATIENT 13.5 SEC (12.2-14.7)
[2018-08-30] MEDS ORDERED: fentaNYL INJECTION 100 MCG/2 ML AMP ONE (10:53)
[2018-08-30] MEDS ORDERED: MIDAZOLAM 5 MG/5 ML (VERSED) VIAL ONE (10:53)
[2018-08-30 10:56] LABS: ALANINE AMINOTRANSFERASE 19 U/L (0-55); ALKALINE PHOSPHATASE 88 U/L (40-136); BILIRUBIN,TOTAL 0.5 MG/DL (0.1-1.0); BUN/CREATININE RATIO 14; CALCIUM 9.1 MG/DL (8.5-10.1); CARBON DIOXIDE 29 MMOL/L (21-32); CHLORIDE 105 MMOL/L (98-107); CHOLESTEROL 174 MG/DL (< 200); CREATININE SERUM 0.85 MG/DL (0.60-1.30); GFR ESTIMATED > 60; GLUCOSE 104 MG/DL (70-105); HDL CHOLESTEROL 47 MG/DL (40-60); POTASSIUM 3.6 MMOL/L (3.6-5.0); SODIUM 141 MMOL/L (135-145); TOTAL PROTEIN 6.7 GM/DL (6.4-8.2); TRIGLYCERIDES 98 MG/DL (<150); VLDL CHOLESTEROL 20 MG/DL (5-40)
--- NOTE | 2018-08-30 12:04 | Cardiac Procedure Note-CS/ASA ---
Pre-Procedure Note Pre-Op Procedure Note H&P Reviewed The H&P was reviewed, patient examined and no changes noted. Date H&P Reviewed: August 30, 2018 Time H&P Reviewed: 11:25 Conscious Sedation Pre-Proced Time 11:25 ASA Score 3 For ASA 3 and 4: Consider anesthesia and medical clearance. Also, for patients with a history of failed moderate sedation consider anesthesia. Airway Lungs Heart ASA score ASA 1: a normal healthy patient ASA 2: a patient with a mild systemic disease (mid diabetes, controlled hypertension, obesity ASA 3: a patient with a severe systemic disease that limits activity (angina , COPD, prior Myocardial infarction) ASA 4: a patient with an incapacitating disease that is a constant threat to life (CHF, renal failure) ASA 5: a moribund patient not expected to survive 24 hrs. (ruptured aneurysm) ASA 6: a declared brain- patient whose organs are being harvested. For emergent operations, add the letter E after the classification Mallampati Classification Grade 2 Sedation Plan Analgesia, Amnesia, Plan communicated to team members, Discussed options with patient/fam, Discussed risks with patient/fam The patient is an appropriate candidate to undergo the planned procedure, sedation, and anesthesia. The patient immediately re-assessed prior to indication. SHIRA PICKENS MD FACP FAC CCDS August 30, 2018 12:04
--- NOTE | 2018-08-30 12:09 | Discharge Inst-Post CATH ---
Discharge Inst-CATH/EP Post Cardiac Cath/EP D/C Inst Follow Up/Plan F/u with Dr Mullen in 2 weeks <b>CARDIAC CATH/EP PROCEDURE DISCHARGE INSTRUCTIONS</b> ACTIVITY * Go Home directly and rest. * Limit activity of the leg (or wrist if it was used) for 7 days including aerobics, swimming, jogging, bicycling, etc. * Restrict stair-climbing for 7 days if possible, if not, climb up with your non -cath leg, then bring together on the same step. * Avoid lifting, pushing, pulling or excessive movement of the affected extremity for 7 days. * Customary sexual activity may be resumed after 2 days-use caution not to use a position that strains or causes pain to the affected extremity. * No driving for 24 hours. * NO SMOKING. * Avoid straining for bowel movements for 7 days. * Gentle walking on level ground is allowed. * Returning to work will depend on the type of procedure and the results. Your doctor will discuss this with you. CALL YOUR DOCTOR FOR ANY OF THE FOLLOWING: *If bleeding from the puncture site occurs- Apply gentle pressure to site with clean cloth and call your doctor or EMS. * If a knot or lump forms under the skin, increases in size, or causes pain. * If bruising appears to be worsening or moving further down your leg instead of disappearing. * Temperature above 101 F. CARE OF YOUR GROIN INCISION; * Bruising or purple discoloration of the skin near the puncture site is common. * You may shower only, no bathtub bathing for 5 days. Be careful to avoid slipping as your leg may feel stiff. * If a closure device was used on your femoral artery, please see the attached guide regarding care of the device and your leg. * Leave dressing on FOR 24 hours. CARE OF YOUR WRIST INCISION; * Bruising or purple discoloration of the skin near the puncture site is common. * You may shower. * DO NOT submerge wrist. * Leave dressing on FOR 24 hours. SHIRA MULLEN MD FAC FAC CCDS August 30, 2018 12:09
--- NOTE | 2018-08-30 12:09 | Discharge Inst-Cardiology ---
Discharge Inst-Cardiac Discharge Medications Continued Medications: Albuterol Sulfate (Albuterol Sulfate) 2.5 Mg/3 Ml Vial.neb 2.5 MG INH Q4H PRN for SHORTNESS OF BREATH, #25 EA 2 Refills Amlodipine Besylate (Amlodipine Besylate) 5 Mg Tablet 5 MG PO DAILY, TAB Apixaban (Eliquis) 5 Mg Tablet 5 MG PO DAILY, TAB Aspirin (Aspirin EC) 81 Mg Tablet.dr 81 MG PO DAILY, TAB Furosemide (Furosemide) 40 Mg Tablet 40 MG PO DAILY, TAB Levothyroxine Sodium (Levothyroxine Sodium) 25 Mcg Tablet 25 MCG PO DAILY, TAB Meclizine HCl (Meclizine HCl) 25 Mg Tablet 25 MG PO TID PRN for DIZZINESS, TAB Metoprolol Succinate (Metoprolol Succinate) 50 Mg Tab.er.24h 50 MG PO DAILY, TAB Multivit-Min/FA/Lycopene/Lut (Centrum Silver Tablet) 1 Each Tablet 1 TAB PO DAILY, TAB Potassium Chloride (Klor-Con M20) 20 Meq Tab.er.prt 20 MEQ PO DAILY, TAB Simvastatin (Simvastatin) 20 Mg Tablet 20 MG PO DAILY, TAB LAST FILLED #90 6-28-18 SHIRA PICKENS MD [facility] FAC CCDS August 30, 2018 12:09
[2018-08-30] MEDS ORDERED: PATIENT MAY USE OWN MEDS, ALL PO SCH (12:15)
--- NOTE | 2018-08-30 13:52 | CARDIAC CATHETERIZATION ---
DATE OF SERVICE: 08/30/2018 CARDIAC CATHETERIZATION The patient is a 63-year-old lady who has multiple coronary artery disease risk factors and who has been experiencing increasing exertional shortness of breath, which is consistent with an angina equivalent. Cardiac catheterization was carried out today after having obtained an informed consent. DESCRIPTION OF PROCEDURE: She was brought to the cardiac catheterization laboratory in a fasting state. Right groin was prepared and draped in the usual sterile fashion. Lidocaine 1% used for local anesthesia. Modified Seldinger technique was used to advance a 5-Tamazight sheath in right femoral artery, 5-Tamazight JL4 catheter for left coronary angiography, 5-Tamazight JR4 catheter for right coronary angiography. A 5-Tamazight pigtail catheter was used for left heart catheterization, left ventricular angiography. Angiography of the right femoral artery had been carried out through the sheath at the beginning of the procedure. At the end of the procedure, Mynx was used to achieve hemostasis following sheath removal. He tolerated the procedure well. The patient had transient bundle branch block upon entry of the pigtail catheter into the left ventricle. This resolved shortly after the procedure was completed. HEMODYNAMICS: Left ventricular end-diastolic pressure following coronary angiography was 15 mmHg. There was no significant pressure gradient on pullback across the aortic valve. Ascending aortic pressure was 145/75 with a mean of 101 mmHg. LEFT VENTRICULAR ANGIOGRAPHY: Left ventricular angiography was carried out in the right anterior oblique projection. Global left ventricular systolic function normal. No regional wall motion abnormalities seen in this view. Left ventricular ejection fraction is 60-65%. CORONARY ANGIOGRAPHY: Left main coronary artery, left anterior descending artery, left circumflex artery, right coronary artery do not exhibit any angiographically significant obstructive coronary artery disease. Right coronary artery is dominant. CONCLUSIONS: 1. No angiographically significant coronary artery disease. 2. Normal global left ventricular systolic function with an ejection fraction of 60% to 65%. 3. Left ventricular end-diastolic pressure is approximately 15 mmHg following coronary angiography. DISCUSSION AND RECOMMENDATIONS: Based on results of the study, it appears appropriate to continue a conservative approach. Risk factor modification has been reviewed. Outpatient followup is advised. Job ID: [id number] DocumentID: [id number] Dictated Date: 08/30/2018 12:00:01 Appliances Sample Maker Date: 08/30/2018 13:51:26 Dictated By: SHIRA PICKENS MD, MA, FACP, FACC,
== END 2018-08-30 15:20 | disposition home or self-care (01) ==
LOC: CATH 09:58 → SDC 12:27 → CATH 15:20
PROVIDERS: ATTEND Internal Medicine Cardiovascular Disease
DX: R07.89 Other chest pain (principal); R06.09 Other forms of dyspnea; R00.2 Palpitations; I48.0 Paroxysmal atrial fibrillation; E03.9 Hypothyroidism, unspecified; I10 Essential (primary) hypertension; E78.5 Hyperlipidemia, unspecified; J44.9 Chronic obstructive pulmonary disease, unspecified; G47.33 Obstructive sleep apnea (adult) (pediatric); E66.9 Obesity, unspecified; Z68.41 Body mass index [BMI] 40.0-44.9, adult; Z91.19 Patient's noncompliance with other medical treatment and regimen; Z79.01 Long term (current) use of anticoagulants; Z79.82 Long term (current) use of aspirin; Z79.899 Other long term (current) drug therapy
CPT/HCPCS: 36415; 80053; 80061; 85027; 85610; 85730; 87081; 93005; 93458

== ENCOUNTER 2019-01-23 15:00 | Emergency (ER) | payer MEDICARE, MEDICAID ==
[~2019-01-23] VITALS: Ht 177.8 cm; Wt 136.3 kg
[~2019-01-23 15:00] MED LIST changes: +AMLO5TAB9 PO
[2019-01-23] MEDS ORDERED: RT-ALBUTEROL/IPRATROPIUM 3 ML (DUONEB) VIAL INH ONE (15:15)
[2019-01-23] MEDS ORDERED: NS IV 1000 ML 1,000 ML IV SCH (15:17)
[2019-01-23 15:18] LABS: BASOPHILS % (AUTO) 0 % (0-10); EOSINOPHILS # (AUTO) 0.3 10^3/uL (0.0-0.3); EOSINOPHILS % (AUTO) 3 % (0-10); HEMATOCRIT 44 % (35-52); HEMOGLOBIN 14.6 G/DL (11.5-16.0); LYMPHOCYTES % (AUTO) 23 % (12-44); MEAN CORPUSCULAR HEMOGLOBIN 30 PG (25-34); MEAN CORPUSCULAR HGB CONC 33 G/DL (32-36); MEAN CORPUSCULAR VOLUME 90 FL (80-99); MEAN PLATELET VOLUME 9.6 FL (7.4-10.4); MONOCYTES # (AUTO) 0.8 X 10^3 (0.0-1.0); MONOCYTES % (AUTO) 9 % (0-12); NEUTROPHILS # (AUTO) 5.7 X 10^3 (1.8-7.8); NEUTROPHILS % (AUTO) 65 % (42-75); PLATELET COUNT 231 10^3/uL (130-400); RED CELL DISTRIBUTION WIDTH 14.8 % (10.0-14.5); WHITE BLOOD COUNT 8.8 10^3/uL (4.3-11.0)
--- NOTE | 2019-01-23 15:24 | ED Respiratory ---
General Chief Complaint: Respiratory Problems Stated Complaint: R ARM PAIN,SOA,N/V,REESE Nursing Triage Note: PT AMB TO [facility] 5 WITH COMPLAINT OF SOA THAT STARTED YESTERDAY. PT IS ALSO COMPLAINING OF RIGHT ARM AND FINGER PAIN. History of Present Illness Date Seen by Provider: Jan 23, 2019 Time Seen by Provider: 15:05 Initial Comments 64 -year-old female presents with a 24-hour history of shortness of air, right arm pain and numbness in her fingers. She was evaluated by Dr. Georges and referred here. She has a significant cardiac history and COPD, is not currently on any inhalers or breathing treatment. She does have atrial fibrillation, she is on Eliquis. Last cardiac catheterization was August 2018, with recommendation to continue conservative treatment. No history or recent use of Nitro for angina. Timing/Duration: yesterday Prior Episodes/Possible Cause: frequent episodes Associated Symptoms: No chest pain/soreness, No cough, No dizziness; headache, lightheadedness, shortness of breath, other (right upper arm pain, with paresthesias in hands and fingers. No left arm symptoms.) Allergies and Home Medications Allergies Coded Allergies: No Known Drug Allergies (Verified , 04/02/15) Home Medications Albuterol Sulfate 2.5 Mg/3 Ml Vial.neb, 2.5 MG INH Q4H Prescribed by: JAYDEN WELCH on 01/23/191651 Amlodipine Besylate 5 Mg Tablet, 5 MG PO DAILY, (Reported) Apixaban 5 Mg Tablet, 5 MG PO DAILY, (Reported) Aspirin 81 Mg Tablet.dr, 81 MG PO DAILY, (Reported) Furosemide 40 Mg Tablet, 40 MG PO DAILY, (Reported) Levothyroxine Sodium 25 Mcg Tablet, 25 MCG PO DAILY, (Reported) Meclizine HCl 25 Mg Tablet, 25 MG PO TID PRN for DIZZINESS, (Reported) Metoprolol Succinate 50 Mg Tab.er.24h, 50 MG PO DAILY, (Reported) Multivit-Min/FA/Lycopene/Lut 1 Each Tablet, 1 TAB PO DAILY, (Reported) Potassium Chloride 20 Meq Tab.er.prt, 20 MEQ PO DAILY, (Reported) Prednisone 20 Mg Tab, 40 MG PO DAILY Prescribed by: JAYDEN WELCH on 01/23/191651 Simvastatin 20 Mg Tablet, 20 MG PO DAILY, (Reported) LAST FILLED #90 10-21-17 Patient Home Medication List Home Medication List Reviewed: Yes Review of Systems Review of Systems Constitutional: no symptoms reported, see HPI Respiratory: see HPI; No cough; short of breath Musculoskeletal: see HPI; No neck pain; other (right arm pain and numbness) Psychiatric/Neurological: See HPI, Headache All Other Systems Reviewed Negative Unless Noted: Yes Past Ceukoew-Rwihjx-Wrerhm Hx Past Med/Social Hx: Reviewed Nursing Past Med/Soc Hx Patient Social History Alcohol Use: Denies Use Recreational Drug Use: No Smoking Status: Never a Smoker Type Used: Cigarettes 2nd Hand Smoke Exposure: Yes Recent Foreign Travel: No Contact w/Someone Who Travel: No Recent Infectious Disease Expo: No Recent Hopitalizations: No Physical Abuse: No Sexual Abuse: No Mistreated: No Fear: No Immunizations Up To Date Tetanus Booster (TDap): Unknown PED Vaccines UTD: No Date of Pneumonia Vaccine: Apr 26, 2012 Date of Influenza Vaccine: Feb 24, 2015 Seasonal Allergies Seasonal Allergies: No Past Medical History Surgeries: Yes (BILATERAL LEG VEIN STRIPPING ; MULTIPLE CARDIAC CATHS; LEFT WRIST REPAIR) Appendectomy, Cardiac, Ear Surgery, Hysterectomy, Orthopedic, Tubal Ligation, Vascular Surgery Respiratory: Yes Asthma, Pneumonia, Chronic Bronchitis, Sleep Apnea, COPD Currently Using CPAP: No Currently Using BIPAP: No Cardiac: Yes ([place] 2005; VARICOSE VEINS) Atrial Fibrillation, Coronary Artery Disease, Heart Attack, High Cholesterol, Hypertension, Irregular Heartbeat, Peripheral Vascular Neurological: Yes Headaches /Migraines 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 Disorders: No Female 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 [employer] WORK[employer] History: Menopausal Sexually Transmitted Disease: No HIV/AIDS: No Genitourinary: No Gastrointestinal: No Musculoskeletal: Yes ("PLATE IN LEFT WRIST"--NARCOTIC DEPENDENT) Arthritis, Chronic Back Pain, Fractures Endocrine: Yes Hypothyroidsim Loss of Vision: Denies Hearing Impairment: Denies Cancer: No Psychosocial: Yes Anxiety, Bipolar, Depression Integumentary: No Blood Disorders: No Adverse Reaction/Blood Tranf: No Family Medical History Cancer 03 MOTHER, Onset:60 years & older son, Onset:10's - 15 Dementia 03 MOTHER, Onset:60 years & older Family history: Alzheimer's disease 03 MOTHER, Onset:60 years & older Family history: Hypertension 09 BROTHER, Onset:30's - 40 Family history: Thyroid disorder daughter, Onset:20's - 25 History of - respiratory disease 09 BROTHER, Onset: No Pertinent Family Hx Physical Exam Vital Signs - First Documented 01/23/19 01/23/19 15:01 15:06 Temp 37.6 Pulse 71 Resp 17 B/P (MAP) 125/93 (104) Pulse Ox 94 O2 Delivery Room Air O2 Flow Rate 2.00 Capillary Refill : Less Than 3 Seconds Height: 6'0.00" Weight: 299lbs. 0.0oz. 135.956553mx; 43.00 BMI Method:Stated General Appearance: WD/WN, no apparent distress Eyes: Bilateral Eye Normal Inspection, Bilateral Eye PERRL, Bilateral Eye EOMI HEENT: PERRL/EOMI, normal ENT inspection, TMs normal, pharynx normal Neck: non-tender, full range of motion, supple, normal inspection Respiratory: chest non-tender, lungs clear, normal breath sounds, no respiratory distress Cardiovascular: normal peripheral pulses, regular rate, rhythm, no murmur Gastrointestinal: normal bowel sounds, non tender, soft Neurologic/Psychiatric: no motor/sensory deficits, alert, normal mood/affect, oriented x 3 Skin: normal color, warm/dry Lymphatic: no adenopathy No cervical neck pain to palpation. Full ROM. Power V/V C5-T1. Sensation intact, bilat UEs. Progress/Results/Core Measures Suspected Sepsis Recent Fever Within 48 Hours: No Infection Criteria Present: None New/Unexplained Altered Menta: No Sepsis Screen: No Definite Risk SIRS Temperature: Pulse: 71 Respiratory Rate: 17 Laboratory Tests 01/23/19 15:00: White Blood Count 8.8 Blood Pressure 125 /93 Mean: 104 Laboratory Tests 01/23/19 15:00: Creatinine 0.93, INR Comment 1.1, Platelet Count 231, Total Bilirubin 0.4 Results/Orders Lab Results Laboratory Tests Test 01/23/19 15:00 Range/Units White Blood Count 8.8 4.3-11.0 10^3/uL Red Blood Count 4.94 4.35-5.85 10^6/uL Hemoglobin 14.6 11.5-16.0 G/DL Hematocrit 44 35-52 % Mean Corpuscular Volume 90 80-99 FL Mean Corpuscular Hemoglobin 30 25-34 PG Mean Corpuscular Hemoglobin Concent 33 32-36 G/DL Red Cell Distribution Width 14.8 H 10.0-14.5 % Platelet Count 231 130-400 10^3/uL Mean Platelet Volume 9.6 7.4-10.4 FL Neutrophils (%) (Auto) 65 42-75 % Lymphocytes (%) (Auto) 23 12-44 % Monocytes (%) (Auto) 9 0-12 % Eosinophils (%) (Auto) 3 0-10 % Basophils (%) (Auto) 0 0-10 % Neutrophils # (Auto) 5.7 1.8-7.8 X 10^3 Lymphocytes # (Auto) 2.0 1.0-4.0 X 10^3 Monocytes # (Auto) 0.8 0.0-1.0 X 10^3 Eosinophils # (Auto) 0.3 0.0-0.3 10^3/uL Basophils # (Auto) 0.0 0.0-0.1 10^3/uL Prothrombin Time 15.1 H 12.2-14.7 SEC INR Comment 1.1 0.8-1.4 Activated Partial Thromboplast Time 31 24-35 SEC D-Dimer 0.41 0.00-0.49 UG/ML Sodium Level 144 135-145 MMOL/L Potassium Level 3.6 3.6-5.0 MMOL/L Chloride Level 103 98-107 MMOL/L Carbon Dioxide Level 31 21-32 MMOL/L Anion Gap 10 5-14 MMOL/L Blood Urea Nitrogen 13 7-18 MG/DL Creatinine 0.93 0.60-1.30 MG/DL Estimat Glomerular Filtration Rate > 60 BUN/Creatinine Ratio 14 Glucose Level 112 H 70-105 MG/DL Calcium Level 9.3 8.5-10.1 MG/DL Corrected Calcium 9.2 8.5-10.1 MG/DL Magnesium Level 1.9 1.6-2.4 MG/DL Total Bilirubin 0.4 0.1-1.0 MG/DL Aspartate Amino Transf (AST/SGOT) 21 5-34 U/L Alanine Aminotransferase (ALT/SGPT) 22 0-55 U/L Alkaline Phosphatase 96 40-136 U/L Myoglobin 44.1 10.0-92.0 NG/ML Troponin I < 0.028 <0.028 NG/ML B-Type Natriuretic Peptide 69.4 <100.0 PG/ML Total Protein 7.9 6.4-8.2 GM/DL Albumin 4.1 3.2-4.5 GM/DL My Orders Orders - JAYDEN WELCH [employer]RAIN [employer]LOADER MACHINE Cbc With Automated Diff (01/23/19 15:03) Magnesium (01/23/19 15:03) Ekg Tracing (01/23/19 15:03) Cardiac Profile 1 (01/23/19 15:03) Comprehensive Metabolic Panel (01/23/19 15:03) Myoglobin Serum (01/23/19 15:03) Protime With Inr (01/23/19 15:03) Partial Thromboplastin Time (01/23/19 15:03) O2 (01/23/19 15:03) Monitor-Rhythm Ecg Trace Only (01/23/19 15:03) Ed Iv/Invasive Line Start (01/23/19 15:03) BNP (01/23/19 15:03) Chest Pa/Lat (2 View) (01/23/19 15:03) Fibrin Degradation Products (01/23/19 15:14) Albuterol/Ipra Inhalation Soln (Duoneb I (01/23/19 15:15) Svn Small Volume Nebulizer (01/23/19 15:14) Ketorolac Injection (Toradol Injection) (01/23/19 15:30) Ed Iv/Invasive Line Start (01/23/19 15:17) Ns Iv 1000 Ml (Sodium Chloride 0.9%) (01/23/19 15:17) Dexamethasone Injection (Decadron Inject (01/23/19 16:45) Medications Given in ED Current Medications Medications Dose Ordered Sig/Brianna Route Start Time Stop Time Status Last Admin Dose Admin Albuterol/ Ipratropium 3 ml ONCE ONCE INH 01/23/19 15:15 01/23/19 15:17 DC 01/23/19 15:43 3 ML Dexamethasone Sodium Phosphate 10 mg ONCE ONCE IV 01/23/19 16:45 01/23/19 16:46 DC 01/23/19 16:48 10 MG Ketorolac Tromethamine 30 mg ONCE ONCE IVP 01/23/19 15:30 01/23/19 15:31 DC 01/23/19 15:28 30 MG Vital Signs/I&O 01/23/19 01/23/19 01/23/19 01/23/19 15:01 15:06 15:44 17:18 Temp 37.6 37.6 Pulse 71 76 Resp 17 15 B/P (MAP) 125/93 (104) 115/68 (104) Pulse Ox 94 97 93 96 O2 Delivery Room Air Nasal Cannula Nasal Cannula Room Air O2 Flow Rate 2.00 3.00 Capillary Refill : Less Than 3 Seconds Blood Pressure Mean: 104 Progress Note : Time: 15:05 Progress Note Patient seen and evaluated, will obtain EKG, labs, chest x-ray and provided DuoNeb breathing treatment. 1600 workup has been essentially normal. Patient states slight improvement since receiving the DuoNeb treatment. We'll give Decadron IV. 1645 patient continues to report improvement in her symptoms. Discharge instructions and return precautions reviewed with her. All questions answered. ECG Initial ECG Impression Date: Jan 23, 2019 Initial ECG Impression Time: 15:09 Initial ECG Rhythm: Normal Sinus Initial ECG Intervals: Normal Initial ECG Intervals TX 196, QRSD 104, QT 380, QTC 407. [place] P 44, QRS 8, T 58. Initial ECG Impression: Normal Initial ECG Comparisson: Unchanged Comment Reviewed with Dr. Bonilla, agreed with interpretation. Diagnostic Imaging Diagonstic Imaging: Xray Plain Films/CT/US/NM/MRI: chest Comments NAME: PEYMAN MENDOZA [facility] REC#: [id number] PT STATUS: REG ER : 1955 PHYSICIAN: JAYDEN WELCH ADMIT DATE: 01/23/19/ER Draft Date of Exam:01/23/19 CHEST PA/LAT (2 VIEW) Indication: Dyspnea. PA and lateral views of the chest are obtained with comparison made to study of 05/31/2018. Overall heart size is at the upper limits of normal. Pulmonary vascularity is unremarkable. There does appear to be tortuosity of the thoracic aorta with probable small hiatal hernia. There may be minimal right parahilar atelectasis and/or scarring. No consolidation, pneumothorax or significant pleural fluid is identified. Note is made of lower thoracic spondylosis. Impression: Probable mild right parahilar atelectasis and/or scarring with otherwise stable chronic findings in the aorta and spine. Dictated on workstation # [id number] Dict: 01/23/19 1528 Trans: 01/23/19 1534 CVB [id number] Interpreted by: BOONE DALEY MD Electronically signed by: Reviewed: Reviewed by Me Departure Impression Primary Impression: Acute exacerbation of chronic obstructive airways disease Additional Impression: Cervical radiculitis Disposition: HOME, SELF-CARE Condition: Improved Departure-Patient Inst. Decision time for Depature: 16:45 Referrals: SAIDA GEORGES MD (PCP/Family) Primary Care Physician Patient Instructions: Exacerbation of COPD (DC) Add. Discharge Instructions: Use your albuterol nebulized treatments every 4 hours while awake. Take the prednisone medication as prescribed. Follow-up with Dr. christian in a few days if symptoms are not improving, sooner if symptoms worsen. Return to emergency department for new, urgent health care needs. All discharge instructions reviewed with patient and/or family. Voiced understanding. Scripts Albuterol Sulfate (Albuterol Sulfate) 2.5 Mg/3 Ml Vial.neb 2.5 MG INH Q4H, #25 VIAL 1 Refill Prov: JAYDEN WELCH 01/23/19 Prednisone (Prednisone) 20 Mg Tab 40 MG PO DAILY, #6 TAB 0 Refills Prov: JAYDEN WELCH 01/23/19 Copy Copies To 1: SAIDA GEORGES MD, AMY ARNP Jan 23, 2019 15:24
[2019-01-23 15:30] LABS: INR 1.1 (0.8-1.4); PROTHROMBIN TIME PATIENT 15.1 SEC (12.2-14.7)
[2019-01-23] MEDS ORDERED: KETOROLAC 30 MG/ML VIAL IVP ONE (15:30)
--- NOTE | 2019-01-23 15:34 | Diagnostic Imaging Report ---
Indication: Dyspnea. PA and lateral views of the chest are obtained with comparison made to study of 05/31/2018. Overall heart size is at the upper limits of normal. Pulmonary vascularity is unremarkable. There does appear to be tortuosity of the thoracic aorta with probable small hiatal hernia. There may be minimal right parahilar atelectasis and/or scarring. No consolidation, pneumothorax or significant pleural fluid is identified. Note is made of lower thoracic spondylosis. Impression: Probable mild right parahilar atelectasis and/or scarring with otherwise stable chronic findings in the aorta and spine. Dictated by: Dictated on workstation # [id number]
[2019-01-23 15:40] LABS: ALANINE AMINOTRANSFERASE 22 U/L (0-55); ALBUMIN 4.1 GM/DL (3.2-4.5); ALKALINE PHOSPHATASE 96 U/L (40-136); BILIRUBIN,TOTAL 0.4 MG/DL (0.1-1.0); BUN/CREATININE RATIO 14; CALCIUM 9.3 MG/DL (8.5-10.1); CARBON DIOXIDE 31 MMOL/L (21-32); CHLORIDE 103 MMOL/L (98-107); CREATININE SERUM 0.93 MG/DL (0.60-1.30); GFR ESTIMATED > 60; GLUCOSE 112 MG/DL (70-105); MAGNESIUM 1.9 MG/DL (1.6-2.4); POTASSIUM 3.6 MMOL/L (3.6-5.0); SODIUM 144 MMOL/L (135-145); TOTAL PROTEIN 7.9 GM/DL (6.4-8.2)
[2019-01-23] MEDS ORDERED: DEXAMETHASONE 10 MG/ML (DECADRON) 1 ML VIAL IV ONE (16:45)
[2019-01-23] MEDS ORDERED: PRD20T PO (16:52)
[2019-01-23] MEDS ORDERED: ALBU2.5V4 INH (16:52)
[2019-01-23 17:18] VITALS: BP 115/68
== END 2019-01-23 17:18 | disposition home or self-care (01) ==
LOC: EDUNIT# 15:00 → ER 15:01
DX: J44.1 Chronic obstructive pulmonary disease with (acute) exacerbation (principal); M54.12 Radiculopathy, cervical region; I10 Essential (primary) hypertension; I25.10 Atherosclerotic heart disease of native coronary artery without angina pectoris; I25.2 Old myocardial infarction; E78.00 Pure hypercholesterolemia, unspecified; G43.909 Migraine, unspecified, not intractable, without status migrainosus; I48.91 Unspecified atrial fibrillation; E03.9 Hypothyroidism, unspecified; F41.9 Anxiety disorder, unspecified; F31.9 Bipolar disorder, unspecified; Z79.01 Long term (current) use of anticoagulants; Z95.9 Presence of cardiac and vascular implant and graft, unspecified; Z79.82 Long term (current) use of aspirin; Z77.22 Contact with and (suspected) exposure to environmental tobacco smoke (acute) (chronic); Z90.49 Acquired absence of other specified parts of digestive tract; Z90.710 Acquired absence of both cervix and uterus; Z98.51 Tubal ligation status; Z82.49 Family history of ischemic heart disease and other diseases of the circulatory system
CPT/HCPCS: 36415; 71046; 80053; 83735; 83874; 83880; 84484; 85025; 85379; 85610; 85730; 93005; 93041; 94640; 96361; 96374; 96375

== ENCOUNTER 2019-06-28 09:01 | Emergency (ER) | payer MEDICARE, MEDICAID ==
[~2019-06-28] VITALS: Ht 177.8 cm; Wt 135.3 kg
[~2019-06-28 09:01] MED LIST changes: +ACHYD1T PO; -HYDR-3812 PO; -HYDR-3820 PO; -MECL-106 PO; +MECL-149 PO; -METO-370 PO; +SIMV20TA26 PO
--- NOTE | 2019-06-28 09:12 | ED General ---
General Stated Complaint: CHEST PAIN History of Present Illness Date Seen by Provider: Jun 28, 2019 Time Seen by Provider: 09:12 Initial Comments 64-year-old female presents with some epigastric tightness. It has been on and off since yesterday. She denies any shortness of breath, nausea, vomiting, diaphoresis, increased cough or any other systemic complaints. Allergies and Home Medications Allergies Coded Allergies: No Known Drug Allergies (Verified , 04/02/15) Home Medications Albuterol Sulfate 2.5 Mg/3 Ml Vial.neb, 2.5 MG INH Q4H Prescribed by: JAYDEN WELCH on 01/23/191651 Amlodipine Besylate 5 Mg Tablet, 5 MG PO DAILY, (Reported) Apixaban 5 Mg Tablet, 5 MG PO DAILY, (Reported) Aspirin 81 Mg Tablet.dr, 81 MG PO DAILY, (Reported) Furosemide 40 Mg Tablet, 40 MG PO DAILY, (Reported) Levothyroxine Sodium 25 Mcg Tablet, 25 MCG PO DAILY, (Reported) Meclizine HCl 25 Mg Tablet, 25 MG PO TID PRN for DIZZINESS, (Reported) Metoprolol Succinate 50 Mg Tab.er.24h, 50 MG PO DAILY, (Reported) Multivit-Min/FA/Lycopene/Lut 1 Each Tablet, 1 TAB PO DAILY, (Reported) Potassium Chloride 20 Meq Tab.er.prt, 20 MEQ PO DAILY, (Reported) Prednisone 20 Mg Tab, 40 MG PO DAILY Prescribed by: JAYDEN WELCH on 01/23/191651 Simvastatin 20 Mg Tablet, 20 MG PO DAILY, (Reported) LAST FILLED #90 6-28-18 Patient Home Medication List Home Medication List Reviewed: Yes Review of Systems Review of Systems Constitutional: No chills, No diaphoresis, No fever, No malaise Respiratory: No cough, No short of breath Cardiovascular: see HPI Gastrointestinal: No abdominal pain, No diarrhea, No nausea, No vomiting Genitourinary: no symptoms reported Musculoskeletal: no symptoms reported Skin: no symptoms reported Psychiatric/Neurological: No Symptoms Reported Hematologic/Lymphatic: No Symptoms Reported Past Iyjllnl-Ibhmbl-Lvzzrm Hx Past Med/Social Hx: Reviewed Nursing Past Med/Soc Hx Patient Social History Type Used: Cigarettes 2nd Hand Smoke Exposure: Yes Recent Foreign Travel: No Contact w/Someone Who Travel: No Recent Hopitalizations: No Immunizations Up To Date Tetanus Booster (TDap): Unknown PED Vaccines UTD: No Date of Pneumonia Vaccine: Apr 26, 2012 Date of Influenza Vaccine: Feb 24, 2015 Seasonal Allergies Seasonal Allergies: No Past Medical History Surgeries: Yes (BILATERAL LEG VEIN STRIPPING ; MULTIPLE CARDIAC CATHS; LEFT WRIST REPAIR) Appendectomy, Cardiac, Ear Surgery, Hysterectomy, Orthopedic, Tubal Ligation, Vascular Surgery Respiratory: Yes Asthma, Pneumonia, Chronic Bronchitis, Sleep Apnea, COPD Currently Using CPAP: No Currently Using BIPAP: No Cardiac: Yes ([place] 2004; VARICOSE VEINS) Atrial Fibrillation, Coronary Artery Disease, Heart Attack, High Cholesterol, Hypertension, Irregular Heartbeat, Peripheral Vascular Neurological: Yes Headaches /Migraines 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 Disorders: No Female 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 Sexually Transmitted Disease: No HIV/AIDS: No Genitourinary: No Gastrointestinal: No Musculoskeletal: Yes ("PLATE IN LEFT WRIST"--NARCOTIC DEPENDENT) Arthritis, Chronic Back Pain, Fractures Endocrine: Yes Hypothyroidsim Loss of Vision: Denies Hearing Impairment: Denies Cancer: No Psychosocial: Yes Anxiety, Bipolar, Depression Integumentary: No Blood Disorders: No Adverse Reaction/Blood Tranf: No Family Medical History Cancer 03 MOTHER, Onset:60 years & older son, Onset:10's - 15 Dementia 03 MOTHER, Onset:60 years & older Family history: Alzheimer's disease 03 MOTHER, Onset:60 years & older Family history: Hypertension 09 BROTHER, Onset:30's - 40 Family history: Thyroid disorder daughter, Onset:20's - 25 History of - respiratory disease 09 BROTHER, Onset:[place] No Pertinent Family Hx Physical Exam Vital Signs Vital Signs - First Documented 06/28/19 09:08 Temp 36.6 Pulse 64 Resp 20 B/P (MAP) 149/108 (122) Pulse Ox 98 O2 Delivery Room Air Capillary Refill : Height, Weight, BMI Height: 6'0.00" Weight: 299lbs. 0.0oz. 135.354018dm; 43.00 BMI Method:Stated General Appearance: No Apparent Distress, WD/WN Neck: Normal Inspection Respiratory: Lungs Clear, Normal Breath Sounds, No Accessory Muscle Use Cardiovascular: Regular Rate, Rhythm, No Edema Gastrointestinal: Non Tender, Soft Back: No CVA Tenderness, No Vertebral Tenderness Extremity: Normal Capillary Refill, Normal Inspection Neurologic/Psychiatric: Alert, Oriented x3, Normal Mood/Affect, stereoptician II-XII Norm as Tested Skin: Normal Color, Warm/Dry Progress/Results/Core Measures Suspected Sepsis SIRS Temperature: Pulse: Respiratory Rate: Laboratory Tests 06/28/19 09:15: White Blood Count 5.9 Blood Pressure / Mean: Laboratory Tests 06/28/19 09:15: Creatinine 0.85, INR Comment 1.0, Platelet Count 197, Total Bilirubin 0.3 Results/Orders Lab Results Laboratory Tests Test 06/28/19 09:15 Range/Units White Blood Count 5.9 4.3-11.0 10^3/uL Red Blood Count 4.51 4.35-5.85 10^6/uL Hemoglobin 13.4 11.5-16.0 G/DL Hematocrit 41 35-52 % Mean Corpuscular Volume 91 80-99 FL Mean Corpuscular Hemoglobin 30 25-34 PG Mean Corpuscular Hemoglobin Concent 33 32-36 G/DL Red Cell Distribution Width 14.3 10.0-14.5 % Platelet Count 197 130-400 10^3/uL Mean Platelet Volume 9.6 7.4-10.4 FL Neutrophils (%) (Auto) 56 42-75 % Lymphocytes (%) (Auto) 32 12-44 % Monocytes (%) (Auto) 8 0-12 % Eosinophils (%) (Auto) 5 0-10 % Basophils (%) (Auto) 1 0-10 % Neutrophils # (Auto) 3.3 1.8-7.8 X 10^3 Lymphocytes # (Auto) 1.9 1.0-4.0 X 10^3 Monocytes # (Auto) 0.5 0.0-1.0 X 10^3 Eosinophils # (Auto) 0.3 0.0-0.3 10^3/uL Basophils # (Auto) 0.0 0.0-0.1 10^3/uL Prothrombin Time 13.8 12.2-14.7 SEC INR Comment 1.0 0.8-1.4 Activated Partial Thromboplast Time 31 24-35 SEC Sodium Level 142 135-145 MMOL/L Potassium Level 3.8 3.6-5.0 MMOL/L Chloride Level 105 98-107 MMOL/L Carbon Dioxide Level 30 21-32 MMOL/L Anion Gap 7 5-14 MMOL/L Blood Urea Nitrogen 12 7-18 MG/DL Creatinine 0.85 0.60-1.30 MG/DL Estimat Glomerular Filtration Rate > 60 BUN/Creatinine Ratio 14 Glucose Level 123 H 70-105 MG/DL Calcium Level 8.6 8.5-10.1 MG/DL Corrected Calcium 8.7 8.5-10.1 MG/DL Magnesium Level 1.8 1.6-2.4 MG/DL Total Bilirubin 0.3 0.1-1.0 MG/DL Aspartate Amino Transf (AST/SGOT) 20 5-34 U/L Alanine Aminotransferase (ALT/SGPT) 18 0-55 U/L Alkaline Phosphatase 101 40-136 U/L Myoglobin 44.6 10.0-92.0 NG/ML Troponin I < 0.028 <0.028 NG/ML Total Protein 6.6 6.4-8.2 GM/DL Albumin 3.9 3.2-4.5 GM/DL My Orders Orders - SOLO,LENA L DO Ekg Tracing (06/28/19 09:03) Cbc With Automated Diff (06/28/19 09:13) Magnesium (06/28/19 09:13) Chest 1 View, Ap/Pa Only (06/28/19 09:13) Ekg Tracing (06/28/19 09:13) Comprehensive Metabolic Panel (06/28/19 09:13) Myoglobin Serum (06/28/19 09:13) Protime With Inr (06/28/19 09:13) Partial Thromboplastin Time (06/28/19 09:13) Monitor-Rhythm Ecg Trace Only (06/28/19 09:13) Ed Iv/Invasive Line Start (06/28/19 09:13) Troponin I (06/28/19 09:13) Aspirin Chewable Tablet (Baby Aspirin Ch (06/28/19 09:15) Lidocaine 2% Viscous 15 Ml (Xylocaine Vi (06/28/19 09:15) Antacid Suspension (Mylanta Suspension (06/28/19 09:15) Medications Given in ED Current Medications Medications Dose Ordered Sig/Brianna Route Start Time Stop Time Status Last Admin Dose Admin Al Hydrox/Mg Hydrox/Simethicone 30 ml ONCE ONCE PO 06/28/19 09:15 06/28/19 09:16 DC 06/28/19 09:44 30 ML Aspirin 324 mg ONCE ONCE PO 06/28/19 09:15 06/28/19 09:16 DC 06/28/19 09:42 324 MG Lidocaine HCl 15 ml ONCE ONCE PO 06/28/19 09:15 06/28/19 09:16 DC 06/28/19 09:43 15 ML Vital Signs/I&O 06/28/19 06/28/19 09:08 10:39 Temp 36.6 Pulse 64 63 Resp 20 18 B/P (MAP) 149/108 (122) 127/77 Pulse Ox 98 97 O2 Delivery Room Air Room Air Capillary Refill : Progress Note : Time: 10:14 Progress Note Patient's symptoms completely resolved with a GI cocktail. Patient's epigastric discomfort started yesterday. She has negative EKG and negative troponin. Based on the time frame with no changes in EKG and troponin is likely a dyspepsia. However I did discuss with her the need to follow-up with a ui software engineer outpatient for evaluation for potential stress test. I recommend she follow-up in the next couple days. At this time patient is stable and is ready to be di scharged home. I did recommend she start Pepcid for her dyspepsia. ECG Initial ECG Impression Date: Jun 28, 2019 Initial ECG Impression Time: 09:05 Initial ECG Rhythm: Normal Sinus Initial ECG Intervals: Normal Initial ECG Impression: Normal Diagnostic Imaging Diagonstic Imaging: Xray Plain Films/CT/US/NM/MRI: chest Comments NAME: PEYMAN MENDOZA [facility] REC#: [id number] PT STATUS: REG ER : 1955 PHYSICIAN: LENA SOLO DO ADMIT DATE: 06/28/19/ER Signed Date of Exam:06/28/19 CHEST 1 VIEW, AP/PA ONLY CHEST 1 VIEW, AP/PA ONLY Indication: Chest pain. Comparison: 01/23/2019 Findings: No focal airspace disease in the visualized lungs. Please note that the posterior lower lobes are poorly evaluated by portable radiography. No pleural effusion or pneumothorax. Stable enlargement of cardiac silhouette. Tortuous aorta. Mediastinal contours are otherwise normal. Impression: 1. No acute cardiopulmonary process by portable radiography Departure Impression Primary Impression: Dyspepsia Disposition: 01 HOME, SELF-CARE Condition: Stable Departure-Patient Inst. Referrals: SAIDA HAMEED MD (PCP/Family) Primary Care Physician Patient Instructions: Dyspepsia (DC) Add. Discharge Instructions: Please start Pepcid or similar medication as directed on package Please follow-up with your primary care provider or ui software engineer in the next day or 2 for consultation on outpatient stress test Emergency department focuses on treating and ruling out life-threatening diseases. Whenever possible, a diagnosis is given. However, most patients are given an impression based on their history, physical exam, and workup during your brief time in the ER. Information about probable diagnosis and other educational material has been provided. Please take the time to read and understand this information. It is very important that you follow up with a physician as discussed during the visit today. Failure to adhere to your follow-up instructions may lead to severe disability, injury, or so please make sure to keep your appointments or obtain one as requested. Please keep in mind the emergency department is not designed to your primary care or "family doctor" and nonurgent issues are best evaluated by an outpatient physician LENA SOLO DO Jun 28, 2019 09:12
[2019-06-28] MEDS ORDERED: ANTACID SUSP 30 ML UDC (MYLANTA) PO ONE (09:15)
[2019-06-28] MEDS ORDERED: LIDOCAINE 2% VISCOUS 15 ML UDC PO ONE (09:15)
[2019-06-28] MEDS ORDERED: ASPIRIN 81 MG CHEW (CHILDREN'S ASA) PO ONE (09:15)
[2019-06-28 09:26] LABS: BASOPHILS % (AUTO) 1 % (0-10); EOSINOPHILS # (AUTO) 0.3 10^3/uL (0.0-0.3); EOSINOPHILS % (AUTO) 5 % (0-10); HEMATOCRIT 41 % (35-52); HEMOGLOBIN 13.4 G/DL (11.5-16.0); LYMPHOCYTES # (AUTO) 1.9 X 10^3 (1.0-4.0); LYMPHOCYTES % (AUTO) 32 % (12-44); MEAN CORPUSCULAR HEMOGLOBIN 30 PG (25-34); MEAN CORPUSCULAR HGB CONC 33 G/DL (32-36); MEAN CORPUSCULAR VOLUME 91 FL (80-99); MEAN PLATELET VOLUME 9.6 FL (7.4-10.4); MONOCYTES # (AUTO) 0.5 X 10^3 (0.0-1.0); MONOCYTES % (AUTO) 8 % (0-12); NEUTROPHILS # (AUTO) 3.3 X 10^3 (1.8-7.8); NEUTROPHILS % (AUTO) 56 % (42-75); PLATELET COUNT 197 10^3/uL (130-400); RED CELL DISTRIBUTION WIDTH 14.3 % (10.0-14.5); WHITE BLOOD COUNT 5.9 10^3/uL (4.3-11.0)
[2019-06-28 09:40] LABS: PROTHROMBIN TIME PATIENT 13.8 SEC (12.2-14.7)
[2019-06-28 09:49] LABS: ALANINE AMINOTRANSFERASE 18 U/L (0-55); ALBUMIN 3.9 GM/DL (3.2-4.5); ALKALINE PHOSPHATASE 101 U/L (40-136); BILIRUBIN,TOTAL 0.3 MG/DL (0.1-1.0); BUN/CREATININE RATIO 14; CALCIUM 8.6 MG/DL (8.5-10.1); CARBON DIOXIDE 30 MMOL/L (21-32); CHLORIDE 105 MMOL/L (98-107); CREATININE SERUM 0.85 MG/DL (0.60-1.30); GFR ESTIMATED > 60; GLUCOSE 123 MG/DL (70-105); MAGNESIUM 1.8 MG/DL (1.6-2.4); POTASSIUM 3.8 MMOL/L (3.6-5.0); SODIUM 142 MMOL/L (135-145); TOTAL PROTEIN 6.6 GM/DL (6.4-8.2)
--- NOTE | 2019-06-28 10:04 | Diagnostic Imaging Report ---
CHEST 1 VIEW, AP/PA ONLY Indication: Chest pain. Comparison: 01/23/2019 Findings: No focal airspace disease in the visualized lungs. Please note that the posterior lower lobes are poorly evaluated by portable radiography. No pleural effusion or pneumothorax. Stable enlargement of cardiac silhouette. Tortuous aorta. Mediastinal contours are otherwise normal. Impression: 1. No acute cardiopulmonary process by portable radiography. Dictated by: Dictated on workstation # [id number]
[2019-06-28 10:39] VITALS: BP 127/77
== END 2019-06-28 10:35 | disposition home or self-care (01) ==
LOC: EDUNIT# 09:01 → ER 09:02
DX: R10.13 Epigastric pain (principal); I10 Essential (primary) hypertension; E78.00 Pure hypercholesterolemia, unspecified; I25.2 Old myocardial infarction; J44.9 Chronic obstructive pulmonary disease, unspecified; I48.91 Unspecified atrial fibrillation; I25.10 Atherosclerotic heart disease of native coronary artery without angina pectoris; E03.9 Hypothyroidism, unspecified; Z95.9 Presence of cardiac and vascular implant and graft, unspecified; Z79.01 Long term (current) use of anticoagulants; Z79.82 Long term (current) use of aspirin; Z77.22 Contact with and (suspected) exposure to environmental tobacco smoke (acute) (chronic); Z79.52 Long term (current) use of systemic steroids
CPT/HCPCS: 36415; 71045; 80053; 83735; 83874; 84484; 85025; 85610; 85730; 93005; 93041

== ENCOUNTER 2019-10-23 17:14 | Emergency (ER) | payer MEDICARE, MEDICAID ==
[~2019-10-23] VITALS: Ht 177.8 cm; Wt 136.7 kg
[2019-10-23] MEDS ORDERED: ASPIRIN 81 MG CHEW (CHILDREN'S ASA) PO ONE (17:30)
[2019-10-23 17:36] LABS: BASOPHILS % (AUTO) 0 % (0-10); EOSINOPHILS # (AUTO) 0.3 10^3/uL (0.0-0.3); EOSINOPHILS % (AUTO) 4 % (0-10); HEMATOCRIT 41 % (35-52); HEMOGLOBIN 13.4 G/DL (11.5-16.0); LYMPHOCYTES # (AUTO) 2.1 X 10^3 (1.0-4.0); LYMPHOCYTES % (AUTO) 27 % (12-44); MEAN CORPUSCULAR HEMOGLOBIN 30 PG (25-34); MEAN CORPUSCULAR HGB CONC 33 G/DL (32-36); MEAN CORPUSCULAR VOLUME 90 FL (80-99); MEAN PLATELET VOLUME 9.6 FL (7.4-10.4); MONOCYTES # (AUTO) 0.6 X 10^3 (0.0-1.0); MONOCYTES % (AUTO) 8 % (0-12); NEUTROPHILS % (AUTO) 62 % (42-75); PLATELET COUNT 202 10^3/uL (130-400); RED CELL DISTRIBUTION WIDTH 14.4 % (10.0-14.5)
[2019-10-23 17:45] LABS: CHLORIDE 103 MMOL/L (98-107); POTASSIUM 3.7 MMOL/L (3.6-5.0); SODIUM 140 MMOL/L (135-145)
[2019-10-23 17:46] LABS: CALCIUM 9.1 MG/DL (8.5-10.1); PROTHROMBIN TIME PATIENT 13.1 SEC (12.2-14.7)
[2019-10-23 17:47] LABS: GLUCOSE 124 MG/DL (70-105); TOTAL PROTEIN 6.8 GM/DL (6.4-8.2)
[2019-10-23 17:48] LABS: CARBON DIOXIDE 24 MMOL/L (21-32)
[2019-10-23 17:49] LABS: BILIRUBIN,TOTAL 0.3 MG/DL (0.1-1.0)
[2019-10-23 17:50] LABS: ALKALINE PHOSPHATASE 95 U/L (40-136)
[2019-10-23 17:51] LABS: CREATININE SERUM 0.86 MG/DL (0.60-1.30); GFR ESTIMATED > 60
[2019-10-23 17:52] LABS: BUN/CREATININE RATIO 12
[2019-10-23 17:53] LABS: ALANINE AMINOTRANSFERASE 21 U/L (0-55)
[2019-10-23 17:54] LABS: MAGNESIUM 1.8 MG/DL (1.6-2.4)
--- NOTE | 2019-10-23 18:04 | Diagnostic Imaging Report ---
INDICATION: Chest pain COMPARISON: 06/28/2019 FINDINGS: Single frontal view of the chest demonstrates normal heart size and pulmonary vascularity. The lungs are well aerated and clear. No large pleural effusion or pneumothorax is seen. The visualized osseous structures show no acute abnormalities. IMPRESSION: 1. No acute cardiopulmonary process. Dictated by: Dictated on workstation # [id number]
--- NOTE | 2019-10-23 18:24 | ED Chest Pain ---
General Chief Complaint: Chest Pain Stated Complaint: SOB,CP Source: patient Exam Limitations: no limitations History of Present Illness Date Seen by Provider: Oct 23, 2019 Time Seen by Provider: 17:23 Initial Comments 64-year-old female who presents to the emergency room with complaints of increasing shortness of breath and chest pain that started around 9 AM while at work. She reports that she did have a wave of nausea but denies vomiting. She is pain-free at this time. She took her daily medications no other medications for pain. She is alert and oriented on arrival to the emergency room. 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 NTG SL GLASS BEAD MAKER: No Associated Symptoms: nausea/vomiting Allergies and Home Medications Allergies Coded Allergies: No Known Drug Allergies (Verified , 04/02/15) Home Medications Albuterol Sulfate 2.5 Mg/3 Ml Vial.neb, 2.5 MG INH Q4H Prescribed by: JAYDEN WELCH on 01/23/191651 Amlodipine Besylate 5 Mg Tablet, 5 MG PO DAILY, (Reported) Apixaban 5 Mg Tablet, 5 MG PO DAILY, (Reported) Aspirin 81 Mg Tablet.dr, 81 MG PO DAILY, (Reported) Furosemide 40 Mg Tablet, 40 MG PO DAILY, (Reported) Levothyroxine Sodium 25 Mcg Tablet, 25 MCG PO DAILY, (Reported) Meclizine HCl 25 Mg Tablet, 25 MG PO TID PRN for DIZZINESS, (Reported) Metoprolol Succinate 50 Mg Tab.er.24h, 50 MG PO DAILY, (Reported) Multivit-Min/FA/Lycopene/Lut 1 Each Tablet, 1 TAB PO DAILY, (Reported) Potassium Chloride 20 Meq Tab.er.prt, 20 MEQ PO DAILY, (Reported) Prednisone 20 Mg Tab, 40 MG PO DAILY Prescribed by: JAYDEN WELCH on 01/23/191651 Simvastatin 20 Mg Tablet, 20 MG PO DAILY, (Reported) LAST FILLED #90 6-28-18 Patient Home Medication List Home Medication List Reviewed: Yes Review of Systems Review of Systems Constitutional: see HPI; No chills, No fever Cardiovascular: See HPI, Chest Pain Gastrointestinal: See HPI, Nausea All Other Systems Reviewed Negative Unless Noted: Yes Past Vwyzpem-Kkflfd-Iilwgl Hx Past Med/Social Hx: Reviewed Nursing Past Med/Soc Hx Patient Social History Alcohol Use: Denies Use Recreational Drug Use: No Smoking Status: Former Smoker Type Used: Cigarettes 2nd Hand Smoke Exposure: Yes Recent Hopitalizations: No Immunizations Up To Date Tetanus Booster (TDap): Unknown PED Vaccines UTD: No Date of Pneumonia Vaccine: Apr 26, 2012 Date of Influenza Vaccine: Feb 24, 2015 Seasonal Allergies Seasonal Allergies: No Past Medical History Surgeries: Yes (BILATERAL LEG VEIN STRIPPING ; MULTIPLE CARDIAC CATHS; LEFT WRIST REPAIR) Appendectomy, Cardiac, Ear Surgery, Hysterectomy, Orthopedic, Tubal Ligation, Vascular Surgery Respiratory: Yes Asthma, Pneumonia, Chronic Bronchitis, Sleep Apnea, COPD Currently Using CPAP: No Currently Using BIPAP: No Cardiac: Yes ([place] 2004; VARICOSE VEINS) Atrial Fibrillation, Coronary Artery Disease, Heart Attack, High Cholesterol, Hypertension, Irregular Heartbeat, Peripheral Vascular Neurological: Yes Headaches /Migraines 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 Disorders: No Female 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 Sexually Transmitted Disease: No HIV/AIDS: No Genitourinary: No Gastrointestinal: No Musculoskeletal: Yes ("PLATE IN LEFT WRIST"--NARCOTIC DEPENDENT) Arthritis, Chronic Back Pain, Fractures Endocrine: Yes Hypothyroidsim Loss of Vision: Denies Hearing Impairment: Denies Cancer: No Psychosocial: Yes Anxiety, Bipolar, Depression Integumentary: No Blood Disorders: No Adverse Reaction/Blood Tranf: No Family Medical History Reviewed Nursing Family Hx Cancer 03 MOTHER, Onset:60 years & older son, Onset:10's - 15 Dementia 03 MOTHER, Onset:60 years & older Family history: Alzheimer's disease 03 MOTHER, Onset:60 years & older Family history: Hypertension 09 BROTHER, Onset:30's - 40 Family history: Thyroid disorder daughter, Onset:20's - 25 History of - respiratory disease 09 BROTHER, Onset:[place] No Pertinent Family Hx Physical Exam Vital Signs Vital Signs - First Documented Capillary Refill : Less Than 3 Seconds Height, Weight, BMI Height: 6'0.00" Weight: 299lbs. 0.0oz. 135.546958hi; 42.00 BMI Method:Stated General Appearance: No Apparent Distress, WD/WN Respiratory: Chest Non Tender, Lungs Clear, Normal Breath Sounds, No Accessory Muscle Use, No Respiratory Distress Cardiovascular: Regular Rate, Rhythm, No Edema, No Gallop, No JVD, No Murmur, Normal Peripheral Pulses Extremity: Normal Capillary Refill Neurologic/Psychiatric: Alert, Oriented x3, Normal Mood/Affect Skin: Normal Color, Warm/Dry Progress/Results/Core Measures Results/Orders Lab Results Laboratory Tests Test 10/23/19 17:25 10/23/19 19:20 10/23/19 19:30 Range/Units White Blood Count 8.0 4.3-11.0 10^3/uL Red Blood Count 4.55 4.35-5.85 10^6/uL Hemoglobin 13.4 11.5-16.0 G/DL Hematocrit 41 35-52 % Mean Corpuscular Volume 90 80-99 FL Mean Corpuscular Hemoglobin 30 25-34 PG Mean Corpuscular Hemoglobin Concent 33 32-36 G/DL Red Cell Distribution Width 14.4 10.0-14.5 % Platelet Count 202 130-400 10^3/uL Mean Platelet Volume 9.6 7.4-10.4 FL Neutrophils (%) (Auto) 62 42-75 % Lymphocytes (%) (Auto) 27 12-44 % Monocytes (%) (Auto) 8 0-12 % Eosinophils (%) (Auto) 4 0-10 % Basophils (%) (Auto) 0 0-10 % Neutrophils # (Auto) 5.0 1.8-7.8 X 10^3 Lymphocytes # (Auto) 2.1 1.0-4.0 X 10^3 Monocytes # (Auto) 0.6 0.0-1.0 X 10^3 Eosinophils # (Auto) 0.3 0.0-0.3 10^3/uL Basophils # (Auto) 0.0 0.0-0.1 10^3/uL Prothrombin Time 13.1 12.2-14.7 SEC INR Comment 1.0 0.8-1.4 Activated Partial Thromboplast Time 28 24-35 SEC D-Dimer 0.27 0.00-0.49 UG/ML Sodium Level 140 135-145 MMOL/L Potassium Level 3.7 3.6-5.0 MMOL/L Chloride Level 103 98-107 MMOL/L Carbon Dioxide Level 24 21-32 MMOL/L Anion Gap 13 5-14 MMOL/L Blood Urea Nitrogen 10 7-18 MG/DL Creatinine 0.86 0.60-1.30 MG/DL Estimat Glomerular Filtration Rate > 60 BUN/Creatinine Ratio 12 Glucose Level 124 H 70-105 MG/DL Calcium Level 9.1 8.5-10.1 MG/DL Corrected Calcium 9.1 8.5-10.1 MG/DL Magnesium Level 1.8 1.6-2.4 MG/DL Total Bilirubin 0.3 0.1-1.0 MG/DL Aspartate Amino Transf (AST/SGOT) 20 5-34 U/L Alanine Aminotransferase (ALT/SGPT) 21 0-55 U/L Alkaline Phosphatase 95 40-136 U/L Myoglobin 36.8 10.0-92.0 NG/ML Troponin I < 0.028 < 0.028 <0.028 NG/ML Total Protein 6.8 6.4-8.2 GM/DL Albumin 4.0 3.2-4.5 GM/DL My Orders Orders - CHINEDU BAEZ Cbc With Automated Diff (10/23/19 17:22) Magnesium (10/23/19 17:22) Chest 1 View, Ap/Pa Only (10/23/19 17:22) Ekg Tracing (10/23/19 17:22) Comprehensive Metabolic Panel (10/23/19 17:22) Myoglobin Serum (10/23/19 17:22) Protime With Inr (10/23/19 17:22) Partial Thromboplastin Time (10/23/19 17:22) O2 (10/23/19 17:22) Monitor-Rhythm Ecg Trace Only (10/23/19 17:22) Ed Iv/Invasive Line Start (10/23/19 17:22) Troponin I (10/23/19 17:22) Aspirin Chewable Tablet (Baby Aspirin Ch (10/23/19 17:30) Fibrin Degradation Products (10/23/19 17:38) Coronavirus Sars-Cov-2 So 2018 (10/23/19 17:38) Troponin I (10/23/19 18:46) Medications Given in ED Current Medications Medications Dose Ordered Sig/Brianna Route Start Time Stop Time Status Last Admin Dose Admin Aspirin 324 mg ONCE ONCE PO 10/23/19 17:30 10/23/19 17:31 DC 10/23/19 17:33 324 MG Vital Signs/I&O 10/23/19 10/23/19 10/23/19 10/23/19 17:15 17:15 19:01 20:02 Temp 37.0 Pulse 81 71 Resp 16 16 B/P (MAP) 143/103 (116) 159/90 144/69 145/88 Pulse Ox 94 95 O2 Delivery Room Air Room Air Room Air Progress Progress Note : Time: 19:45 Progress Note I have seen and evaluated the patient. I have discussed the case with Dr. Alberts fire fighters dispatcher and he has reviewed her EKG. She has remained chest pain-free during her stay and symmetrically recommend doing repeat troponin and having the patient follow up outpatient. Patient agrees with plan of care, plans for discharge, return precautions were given. Departure Impression Primary Impression: Chest pain Disposition: 01 HOME, SELF-CARE Condition: Stable/Unchanged Departure-Patient Inst. Decision time for Depature: 19:48 Referrals: SAIDA HAMEED MD (PCP/Family) Primary Care Physician Patient Instructions: Chest Pain (DC) Add. Discharge Instructions: Resume home medications as previously prescribed. Return back to the emergency room for worsening symptoms, chest pain, shortness of breath, or any other concerns as needed. Follow-up with her primary care provider within 1 week for recheck. All discharge instructions reviewed with patient and/or family. Voiced understanding. CHINEDU BAEZ Oct 23, 2019 18:24
[2019-10-23 20:02] VITALS: BP 144/69
--- OUTSIDE RECORDS SUMMARY | 2019-10-23 20:36 | XMS REPORT | Continuity of Care Document ---
Author Organization Unknown Address Unknown Phone Unavailable Allergies Active Description Code Type Severity Reaction Onset Reported/Identified Relationship to Patient Clinical Status Yes NKDA NKDA Mild N/A 10/13/2008 Yes No Known Drug Allergies [id number] Drug Allergy Unknown N/A 04/02/2015 Medications There [...] 427.31 12/24/2009 Ot V58.61 01/31/2010 Ot 244.9 HYPO THYROIDISM NOS 01/31/2010 Ot 272.4 HYPE RLIPIDEMIA NEC/NOS 01/31/2010 Ot 278.01 MOR BID OBESITY 01/31/2010 Ot 311 DEPRES SIVE DISORDER NEC 01/31/2010 Ot 401.9 HYPE RTENSION NOS 01/31/2010 Ot 427.31 ATR IAL FIBRILLATION 01/31/2010 Ot 786.09 RES PIRATORY ABNORM NEC 01/31/[address] PAIN NEC 01/31/2010 Ot 791.9 ABN URINE FINDINGS NEC 01/31/2010 Ot V58.61 ANTICOAGULANTS,LT,CURRENT USE 01/31/2010 Ot V58.69 OTH MED,LT,CURRENT USE 01/31/2010 Ot V85.41 BOD Y MASS INDEX 40.0-44.9, ADULT 05/02/2010 Ot 244.9 05/02/2010 Ot 272.4 05/02/2010 Ot 278.00 05/02/2010 Ot 311 05/02/2010 Ot 401.9 05/02/2010 Ot 414.01 05/02/2010 Ot 427.31 05/02/2010 Ot 465.9 05/02/2010 Ot 491.21 05/02/2010 Ot V58.61 05/02/2010 Ot V85.38 05/11/2010 Ot 427.31 05/11/2010 Ot 478.19 05/11/2010 Ot 780.4 05/11/2010 Ot 784.0 05/11/2010 Ot 787.02 05/11/2010 Ot V58.61 09/29/2010 Ot 244.9 HYPO THYROIDISM NOS 09/29/2010 Ot 272.4 HYPE RLIPIDEMIA NEC/NOS 09/29/2010 Ot 278.00 OBE SITY, NOS 09/29/2010 Ot 296.80 BIP OLAR DISORDER, UNSPECIFIED 09/29/2010 Ot 401.9 HYPE RTENSION NOS 09/29/2010 Ot 412 OLD MY OCARDIAL INFARCT 09/29/2010 Ot 414.01 COR ONARY ATHEROSCLEROSIS OF [place] CORON 09/29/2010 Ot 427.31 ATR IAL FIBRILLATION 09/29/2010 Ot 496 CHR AI RWAY OBSTRUCT NEC 09/29/[address] PAIN NOS 09/29/2010 Ot V17.49 FAM LAUREL HISTORY OF OTHER CARDIOVASCULAR D 09/29/2010 Ot V58.61 ANTICOAGULANTS,LT,CURRENT USE 09/29/2010 Ot V58.69 OTH MED,LT,CURRENT USE 09/29/2010 Ot V85.42 BOD Y MASS INDEX 45.0-49.9, ADULT 12/02/2010 Ot 272.4 HYPE RLIPIDEMIA NEC/NOS 12/02/2010 Ot 401.9 HYPE RTENSION NOS 12/02/2010 Ot 496 CHR AI RWAY OBSTRUCT NEC 12/02/2010 Ot 780.4 DIZZ INESS AND GIDDINESS 12/02/2010 Ot 786.52 REESE NFUL RESPIRATION 12/02/[address] PAIN NEC 12/02/2010 Ot V58.61 ANTICOAGULANTS,LT,CURRENT USE 12/02/2010 Ot V58.69 OTH MED,LT,CURRENT USE 01/10/2011 Ot 372.30 CON JUNCTIVITIS NOS 01/10/2011 Ot 379.91 REESE N IN OR AROUND EYE 01/25/2011 Ot 491.21 OBS TR CHRONIC BRONCHITIS, W (ACUTE) EXAC 01/25/2011 Ot 786.05 NGOZI RTNESS OF BREATH 03/24/2011 Ot 412 OLD MY OCARDIAL INFARCT 03/24/2011 Ot 414.00 COR ON ATHEROSCLER NOS TYPE VESSEL, NATIV 03/24/2011 Ot 454.9 ASYM PTOMATIC VARICOSE VEINS 03/24/2011 Ot 729.5 PAIN IN LIMB 03/24/2011 Ot V58.61 ANTICOAGULANTS,LT,CURRENT USE 03/24/2011 Ot V58.69 OTH MED,LT,CURRENT USE 08/23/2011 Ot 244.9 HYPO THYROIDISM NOS 08/23/2011 Ot 272.4 HYPE RLIPIDEMIA NEC/NOS 08/23/2011 Ot 278.00 OBE SITY, NOS 08/23/2011 Ot 300.00 ANX IETY STATE NOS 08/23/2011 Ot 311 DEPRES SIVE DISORDER NEC 08/23/2011 Ot 327.23 OBS TRUCTIVE SLEEP APNEA (ADULT) (PEDIATR 08/23/2011 Ot 401.9 HYPE RTENSION NOS 08/23/2011 Ot 427.31 ATR IAL FIBRILLATION 08/23/2011 Ot 496 CHR AI RWAY OBSTRUCT NEC 08/23/2011 Ot 716.90 ART HROPATHY NOS- UNSPEC 08/23/[address] PAIN NEC 08/23/2011 Ot V12.71 PER RONALDO HISTORY OF PEPTIC ULCER DISEASE 08/23/[address] ABSENCE OF GENITAL ORGANS 08/23/2011 Ot V85.41 BOD Y MASS INDEX 40.0-44.9, ADULT 10/22/2011 Ot 173.31 BAS AL CELL CARCINOMA OF SKIN OF OT UN 10/22/2011 Ot 706.2 SEBA CEOUS CYST 10/22/2011 Ot V58.61 ANTICOAGULANTS,LT,CURRENT USE 11/13/2011 Ot 491.21 OBS TR CHRONIC BRONCHITIS, W (ACUTE) EXAC 11/13/2011 Ot 786.05 NGOZI RTNESS OF BREATH 12/02/2011 Ot V58.61 ANTICOAGULANTS,LT,CURRENT USE 12/02/2011 Ot V58.83 ENC OUNTER FOR THERAPEUTIC DRUG MONITORIN 02/25/2012 Ot 296.80 BIP OLAR DISORDER, UNSPECIFIED 02/25/2012 Ot 401.9 HYPE RTENSION NOS 02/25/2012 Ot 490 BRONCH ITIS NOS 06/16/2012 Ot 244.9 HYPO THYROIDISM NOS 06/16/2012 Ot 272.4 HYPE RLIPIDEMIA NEC/NOS 06/16/2012 Ot 278.00 OBE SITY, NOS 06/16/2012 Ot 311 DEPRES SIVE DISORDER NEC 06/16/2012 Ot 401.9 HYPE RTENSION NOS 06/16/2012 Ot 412 OLD MY OCARDIAL INFARCT 06/16/2012 Ot 491.21 OBS TR CHRONIC BRONCHITIS, W (ACUTE) EXAC 06/16/2012 Ot V03.82 PRO PHYLACTIC VACC AGAINST STREPTOCOCCUS 06/16/2012 Ot V12.51 HX- VENOUS THROMBOSIS EMBOLISM 06/16/2012 Ot V15.82 HIS TORY OF TOBACCO USE 06/16/2012 Ot V58.61 ANTICOAGULANTS,LT,CURRENT USE 06/16/2012 Ot V85.41 BOD Y MASS INDEX 40.0-44.9, ADULT 06/18/2012 Ot 780.4 DIZZ INESS AND GIDDINESS 06/18/2012 Ot E942.9 ADV EFF CARDIOVASC NEC 06/18/2012 Ot V58.61 ANTICOAGULANTS,LT,CURRENT USE 06/18/2012 Ot V58.69 OTH MED,LT,CURRENT USE 11/30/2012 JAMES PHELAN MD Ot 496 CHR AIRWAY OBSTRUCT NEC 11/30/2012 JAMES PHELAN MD Ot 784.0 HEADACHE 11/30/2012 JAMES PHELAN MD Ot V58.61 ANTICOAGULANTS,LT,CURRENT USE 12/27/2012 JONNATHAN MALLOY APRN Ot 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 9 HYPOTHYROIDISM NOS 03/01/2013 SAIDA HAMEED MD Ot 346. 90 MIGRAINE UNSPECIFIED W/O INTRACT MGRN W/ 03/01/2013 SAIDA HAMEED MD R Ot 401. 9 HYPERTENSION NOS 03/01/2013 SAIDA HAMEED MD R Ot 412 OLD MYOCARDIAL INFARCT 03/01/2013 SAIDA HAMEED MD R Ot 427. 31 ATRIAL FIBRILLATION 03/01/2013 SAIDA HAMEED MD R Ot 491. 21 OBSTR CHRONIC BRONCHITIS, W (ACUTE) EXAC 03/01/2013 SAIDA HAMEED MD R Ot 716. 90 ARTHROPATHY NOS-UNSPEC 03/01/2013 SAIDA HAMEED MD R Ot 780. 4 DIZZINESS AND GIDDINESS 03/01/2013 SAIDA HAMEED MD R Ot 780. 57 UNSPECIFIED SLEEP APNEA 03/01/2013 SAIDA HAMEED MD R Ot V58. 61 ANTICOAGULANTS,LT,CURRENT USE 03/25/2013 VIELKA MORENO MD Ot 244. 9 HYPOTHYROIDISM NOS 03/25/2013 VIELKA MORENO MD Ot 272. 4 HYPERLIPIDEMIA NEC/NOS 03/25/2013 VIELKA MORENO MD Ot 300. 00 ANXIETY STATE NOS 03/25/2013 VIELKA MORENO MD Ot 311 DEPRESSIVE DISORDER NEC 03/25/2013 VIELKA MORENO MD Ot 346. 90 MIGRAINE UNSPECIFIED W/O INTRACT MGRN W/ 03/25/2013 VIELKA MORENO MD Ot 401. 9 HYPERTENSION NOS 03/25/2013 VIELKA MORENO MD Ot 412 OLD MYOCARDIAL INFARCT 03/25/2013 VIELKA MORENO MD Ot 427. 31 ATRIAL FIBRILLATION 03/25/2013 VIELKA MORENO MD Ot 496 CHR AIRWAY OBSTRUCT NEC 03/25/2013 VIELKA MORENO MD Ot 530. 81 ESOPHAGEAL REFLUX 03/25/2013 VIELKA MORENO MD Ot 716. 90 ARTHROPATHY NOS-UNSPEC 03/25/2013 VIELKA MORENO MD Ot 719. 41 JOINT PAIN-SHLDER 03/25/2013 VIELKA MORENO MD Ot 729. 5 PAIN IN LIMB 03/25/2013 VIELKA OMRENO MD Ot 780. 57 UNSPECIFIED SLEEP APNEA 03/25/2013 VIELKA MORENO MD Ot 780. 79 OTH MALAISE FATIGUE 03/25/2013 VIELKA MORENO MD Ot 782. 0 SKIN SENSATION DISTURB 03/25/2013 VIELKA MORENO MD Ot 786. 05 SHORTNESS OF BREATH 03/25/2013 VIELKA MORENO MD Ot 786. 59 CHEST PAIN NEC 03/25/2013 VIELKA MORENO MD Ot V58. 61 ANTICOAGULANTS,LT,CURRENT USE 05/21/2013 JONNATHAN MALLOY AUTOMATIC DEVELOPER Ot 427.31 ATRIAL FIBRILLATION 05/21/2013 JONNATHAN MALLOY APRN Ot 491.21 OBSTR CHRONIC BRONCHITIS, W (ACUTE) EXAC 05/21/2013 JONNATHAN MALLOY APRN Ot 786.05 SHORTNESS OF BREATH 05/21/2013 JONNATHAN MALLOY APRN Ot V58.61 ANTICOAGULANTS,LT,CURRENT USE 05/21/2013 JONNATHAN MALLOY AUTOMATIC DEVELOPER Ot V58.69 OTH MED,LT,CURRENT USE 05/25/2013 SAIDA HAMEED MD Ot 244. 9 HYPOTHYROIDISM NOS 05/25/2013 SAIDA HAMEED MD R Ot 250. 00 DIAB MICHAEL WO COMPL, TYPE II OR UNSPEC TY 05/25/2013 SAIDA HAMEED MD R Ot 300. 00 ANXIETY STATE NOS 05/25/2013 SAIDA HAMEED MD R Ot 311 DEPRESSIVE DISORDER NEC 05/25/2013 SAIDA HAMEED MD R Ot 346. 90 MIGRAINE UNSPECIFIED W/O INTRACT MGRN W/ 05/25/2013 SAIDA HAMEED MD R Ot 401. 9 HYPERTENSION NOS 05/25/2013 SAIDA HAMEED MD R Ot 412 OLD MYOCARDIAL INFARCT 05/25/2013 SAIDA HAMEED MD Ot 427. 31 ATRIAL FIBRILLATION 05/25/2013 SAIDA HAMEED MD Ot 478. 19 OTHER DISEASE OF NASAL CAVITY AND SINUSE 05/25/2013 SAIDA HAMEED MD R Ot 491. 22 OBSTRUCTIVE CHRONIC BRONCHITIS WITH ACUT 05/25/2013 SAIDA HAMEED MD R Ot 716. 90 ARTHROPATHY NOS-UNSPEC 05/25/2013 SAIDA HAMEED MD Ot 780. 57 UNSPECIFIED SLEEP APNEA 05/25/2013 SAIDA HAMEED MD Ot 780. 79 OTH MALAISE FATIGUE 05/25/2013 SAIDA HAMEED MD Ot 786. 05 SHORTNESS OF BREATH 05/25/2013 SAIDA HAMEED MD Ot 786. 07 WHEEZING 05/25/2013 SAIDA HAMEED MD Ot 786. 09 RESPIRATORY ABNORM NEC 05/25/2013 SAIDA HAMEED MD Ot 786. 2 COUGH 05/25/2013 SAIDA HAMEED MD Ot V58. 61 ANTICOAGULANTS,LT,CURRENT USE 05/25/2013 SAIDA HAMEED MD Ot V58. 69 OTH MED,LT,CURRENT USE 06/28/2013 NICK DO, CARISSA K Ot 787.03 VOMITING ALONE 06/28/2013 NICK DO CARISSA K Ot V87.2 CONTACT W SUSPECTED EXPOSURE OTH POTEN 08/25/2013 SAIDA HAMEED MD R Ot 244. 9 HYPOTHYROIDISM NOS 08/25/2013 SAIDA HAMEED MD R Ot 250. 00 DIAB MICHAEL WO COMPL, TYPE II OR UNSPEC TY 08/25/2013 SAIDA HAMEED MD R Ot 272. 4 HYPERLIPIDEMIA NEC/NOS 08/25/2013 SAIDA HAMEED MD R Ot 300. 00 ANXIETY STATE NOS 08/25/2013 SAIDA HAMEED MD R Ot 311 DEPRESSIVE DISORDER NEC 08/25/2013 SAIDA HAMEED MD Ot 346. 90 MIGRAINE UNSPECIFIED W/O INTRACT MGRN W/ 08/25/2013 SAIDA HAMEED MD R Ot 401. 9 HYPERTENSION NOS 08/25/2013 SAIDA HAMEED MD R Ot 412 OLD MYOCARDIAL INFARCT 08/25/2013 SAIDA HAMEED MD Ot 427. 31 ATRIAL FIBRILLATION 08/25/2013 SAIDA HAMEED MD Ot 496 CHR AIRWAY OBSTRUCT NEC 08/25/2013 SAIDA HAMEED MD Ot 530. 81 ESOPHAGEAL REFLUX 08/25/2013 SAIDA HAMEED MD Ot 716. 90 ARTHROPATHY NOS-UNSPEC 08/25/2013 SAIDA HAMEED MD Ot 724. 5 BACKACHE NOS 08/25/2013 SAIDA HAMEED MD Ot 780. 57 UNSPECIFIED SLEEP APNEA 08/25/2013 SAIDA HAMEED MD Ot 786. 50 CHEST PAIN NOS 08/25/2013 SAIDA HAMEED MD Ot 790. 92 COAGULATION PROFILE, ABNORMAL 08/25/2013 SAIDA HAMEED MD, Ot V58. 61 ANTICOAGULANTS,LT,CURRENT USE 10/14/2013 JULIANA HERNANDEZ DO Ot 244.9 HYPOTHYROIDISM NOS 10/14/2013 JULIANA HERNANDEZ DO Ot 272.0 PURE HYPERCHOLESTEROLEM 10/14/2013 JULIANA HERNANDEZ DO Ot 300.00 ANXIETY STATE NOS 10/14/2013 JULIANA HERNANDEZ DO Ot 31 1 DEPRESSIVE DISORDER NEC 10/14/2013 JULIANA HERNANDEZ DO Ot 346.90 MIGRAINE UNSPECIFIED W/O INTRACT MGRN W/ 10/14/2013 JULIANA HERNANDEZ DO Ot 401.9 HYPERTENSION NOS 10/14/2013 JULIANA HERNANDEZ DO Ot 427.9 CARDIAC DYSRHYTHMIA NOS 10/14/2013 UJLIANA HERNANDEZ DO Ot 428.0 CONGESTIVE HEART FAILURE NOS 10/14/2013 JULIANA HERNANDEZ DO Ot 49 6 CHR AIRWAY OBSTRUCT NEC 10/14/2013 JULIANA HERNANDEZ DO Ot 599.0 URIN TRACT INFECTION NOS 10/14/2013 JULIANA HERNANDEZ DO Ot 716.90 ARTHROPATHY NOS-UNSPEC 10/14/2013 JULIANA HERNANDEZ DO Ot 722.0 CERVICAL DISC DISPLACMNT 10/14/2013 JULIANA HERNANDEZ DO Ot 729.5 PAIN IN LIMB 10/14/2013 JULIANA HERNANDEZ DO Ot 780.57 UNSPECIFIED SLEEP APNEA 10/14/2013 JULIANA HERNANDEZ DO, Ot V58.66 LONG-TERM (CURRENT) USE OF ASPIRIN 10/14/2013 JULIANA HERNANDEZ DO, Ot V58.69 OTH MED,LT,CURRENT USE 07/02/2014 Ot 461.9 ACUT E SINUSITIS NOS 07/02/2014 Ot 491.21 OBS TR CHRONIC BRONCHITIS, W (ACUTE) EXAC 07/02/2014 Ot 786.05 NGOZI RTNESS OF BREATH 10/25/2014 Ot 785.6 10/25/2014 Ot 478.19 10/25/2014 Ot 780.4 10/25/2014 Ot 784.0 10/25/2014 Ot 787.02 10/25/2014 Ot 709.9 10/25/2014 Ot V72.63 10/25/2014 Ot V74.8 10/25/2014 Ot V58.61 10/25/2014 Ot V58.83 10/25/2014 ZHANE LU, JAMES Rodríguez Ot 286.9 10/25/2014 ZARI LU, SAIDA Oliveira Ot 729. 5 10/25/2014 ZARI LU, SAIDA Oliveira Ot 729. 81 10/25/2014 TRACY JOSEPH DO Ot 278. 01 10/25/2014 TRACY JOSEPH DO Ot 311 10/25/2014 TRACY JOSEPH DO Ot 427. 31 10/25/2014 TRACY JOSEPH DO Ot 496 10/25/2014 JAMES PHELAN MD Ot [...] 286.9 10/25/2014 ZARI LU, SAIDA Oliveira Ot 729. 5 10/25/2014 SAIDA HAMEED MD Ot 729. 81 10/25/2014 TRACY JOSEPH DO Ot 278. 01 10/25/2014 TRACY JOSEPH DO Ot 311 10/25/2014 TRACY JOSEPH DO Ot 427. 31 10/25/2014 TRACY JOSEPH DO Ot 496 11/22/2014 ZARI LU, SAIDA R Ot 496 CHR AIRWAY OBSTRUCT NEC 11/22/2014 ZARI LU, SAIDA R Ot 987. 6 TOXIC EFF CHLORINE GAS 11/22/2014 ZARI LU, SAIDA R Ot E000 .8 OTHER EXTERNAL CAUSE STATUS 11/22/2014 ZARI LU, SAIDA Oliveira Ot E013 .4 ACTIVITIES INVOLVING FLOOR MOPPING AND C 11/22/2014 ZARI LU, SAIDA Oliveira Ot E849 .0 ACCIDENT IN HOME 11/22/2014 ZARI LU, SAIDA R Ot E869 .8 ACC POISON-GAS/VAPOR NEC 02/25/2015 ZARI LU, SAIDA R Ot J40 03/18/2015 ZARI LU, SAIDA R Ot J40 04/02/2015 Ot 478.19 04/02/2015 Ot 780.4 04/02/2015 Ot 784.0 04/02/2015 Ot 787.02 04/02/2015 Ot 709.9 04/02/2015 Ot V72.63 04/02/2015 Ot V74.8 04/02/2015 Ot V58.61 04/02/2015 Ot V58.83 04/02/2015 ZHANE LU, JAMES Rodríguez Ot 286.9 04/02/2015 ZARI LU, SAIDA R Ot 729. 5 04/02/2015 ZARI LU, SAIDA R Ot 729. 81 04/02/2015 TRACY JOSEPH DO Ot 278. 01 04/02/2015 TRACY JOSEPH DO Ot 311 04/02/2015 TRACY JOSEPH DO Ot 427. 31 04/02/2015 TRACY JOSEPH DO Ot 496 04/02/2015 ZARI LU, SAIDA R Ot J40 04/02/2015 Ot V58.61 04/02/2015 Ot V58.83 04/04/2015 ZARI LU, SAIDA Oliveira Ot E11. 9 TYPE 2 DIABETES MELLITUS WITHOUT COMPLIC 04/04/2015 ZARI LU, SAIDA R Ot E66. 9 OBESITY, UNSPECIFIED 04/04/2015 SAIDA HAMEED MD R Ot I10 ESSENTIAL (PRIMARY) HYPERTENSION 04/04/2015 ZARI LU, SAIDA R Ot I48. 91 UNSPECIFIED ATRIAL FIBRILLATION 04/04/2015 ZARI LU, SAIDA R Ot J44. 1 CHRONIC OBSTRUCTIVE PULMONARY DISEASE W 04/04/2015 ZARI LU, SAIDA R Ot Z23 ENCOUNTER FOR IMMUNIZATION 04/04/2015 ZARI LU, SAIDA R Ot Z68. 41 BODY MASS INDEX (BMI) 40.0-44.9, ADULT 04/05/2015 CHRISTIANO LU, SANDRITA Mejia Ot J44 .0 CHRONIC OBSTRUCTIVE PULMON DISEASE W ACU 05/07/2015 Ot 478.19 05/07/2015 Ot 780.4 05/07/2015 Ot 784.0 05/07/2015 Ot 787.02 05/07/2015 Ot 709.9 05/07/2015 Ot V72.63 05/07/2015 Ot V74.8 05/07/2015 Ot V58.61 05/07/2015 Ot V58.83 05/07/2015 ZHANE LU, JAMES D Ot 286.9 05/07/2015 ZARI LU, SAIDA R Ot 729. 5 05/07/2015 ZARI LU, SAIDA R Ot 729. 81 05/07/2015 TRACY JOSEPH DO Ot 278. 01 05/07/2015 TRACY JOSEPH DO Ot 311 05/07/2015 TRACY JOSEPH DO Ot 427. 31 05/07/2015 TRACY JOSEPH DO Ot 496 05/07/2015 ZARI LU, SAIDA R Ot J40 05/27/2015 ZARI LU, SAIDA R Ot J40 06/16/2015 CHRISTIANO LU, SANDRITA Mejia Ot J44 .1 CHRONIC OBSTRUCTIVE PULMONARY DISEASE W 08/14/2015 ESTELA SALINAS CAREER AND TRANSITION TEACHER Ot G47.30 SLEEP APNEA, UNSPECIFIED 08/14/2015 ESTELA SALINAS L CAREER AND TRANSITION TEACHER Ot I48.91 UNSPECIFIED ATRIAL FIBRILLATION 08/14/2015 ESTELA SALINAS CAREER AND TRANSITION TEACHER Ot J44.9 CHRONIC OBSTRUCTIVE PULMONARY DISEASE, U 08/14/2015 ESTELA SALINAS L CAREER AND TRANSITION TEACHER Ot R06.00 DYSPNEA, UNSPECIFIED 08/14/2015 ESTELA SALINAS L CAREER AND TRANSITION TEACHER Ot R07.9 CHEST PAIN, UNSPECIFIED 08/14/2015 ESTELA SALINAS L CAREER AND TRANSITION TEACHER Ot Z79.01 HALFWAY (CURRENT) USE OF ANTICOAGULANT 09/03/2015 BAIMA, ESTELA L CAREER AND TRANSITION TEACHER Ot G47.30 SLEEP APNEA, UNSPECIFIED 09/03/2015 BAIMA, ESTELA L CAREER AND TRANSITION TEACHER Ot I48.91 UNSPECIFIED ATRIAL FIBRILLATION 09/03/2015 BAIMA, ESTELA L CAREER AND TRANSITION TEACHER Ot J44.9 CHRONIC OBSTRUCTIVE PULMONARY DISEASE, U 09/03/2015 BAIMA, ESTELA L CAREER AND TRANSITION TEACHER Ot R06.00 DYSPNEA, UNSPECIFIED 09/03/2015 BAIMA, ESTELA L CAREER AND TRANSITION TEACHER Ot R07.9 CHEST PAIN, UNSPECIFIED 09/03/2015 BAIMA, ESTELA L CAREER AND TRANSITION TEACHER Ot Z79.01 TILE TRIMMER (CURRENT) USE OF ANTICOAGULANT 09/20/2015 BAIMA, ESTELA L CAREER AND TRANSITION TEACHER Ot G47.30 SLEEP APNEA, UNSPECIFIED 09/20/2015 BAIMA, ESTELA L CAREER AND TRANSITION TEACHER Ot I48.91 UNSPECIFIED ATRIAL FIBRILLATION 09/20/2015 BAIMA, ESTELA L CAREER AND TRANSITION TEACHER Ot J44.9 CHRONIC OBSTRUCTIVE PULMONARY DISEASE, U 09/20/2015 BAIMA, ESTELA L CAREER AND TRANSITION TEACHER Ot R06.00 DYSPNEA, UNSPECIFIED 09/20/2015 BAIMA, ESTELA L CAREER AND TRANSITION TEACHER Ot R07.9 CHEST PAIN, UNSPECIFIED 09/20/2015 BAIMA, ESTELA L CAREER AND TRANSITION TEACHER Ot Z79.01 TILE TRIMMER (CURRENT) USE OF ANTICOAGULANT 02/25/2016 Ot 709.9 SKIN DISORDER NOS 02/25/2016 Ot V72.63 PRE -PROCEDURAL LABORATORY EXAMINATION 02/25/2016 Ot V74.8 SCRE EN-BACTERIAL DIS NEC 02/25/2016 Ot V58.61 ANTICOAGULANTS,LT,CURRENT USE 02/25/2016 Ot V58.83 [facility] DRUG MONITORIN 02/25/2016 ZHANE LU, JAMES Rodríguez Ot 286.9 COAGULAT DEFECT NEC/NOS 02/25/2016 ZARI LU, SAIDA Oliveira Ot 729. 5 PAIN IN LIMB 02/25/2016 ZARI LU, SAIDA R Ot 729. 81 SWELLING OF LIMB 02/25/2016 TRACY JOSEPH DO Ot 278. 01 MORBID OBESITY 02/25/2016 TRACY JOSEPH DO Ot 311 DEPRESSIVE DISORDER NEC 02/25/2016 TRACY JOSEPH DO Ot 427. 31 ATRIAL FIBRILLATION 02/25/2016 TRACY JOSEPH DO Ot 496 CHR AIRWAY OBSTRUCT NEC 02/25/2016 ZARI LU, SAIDA Oliveira Ot J40 BRONCHITIS, NOT SPECIFIED ACUTE OR CH 02/25/2016 ESTELA SALINAS CAREER AND TRANSITION TEACHER Ot G47.30 SLEEP APNEA, UNSPECIFIED 02/25/2016 ESTELA SALINAS L CAREER AND TRANSITION TEACHER Ot I48.91 UNSPECIFIED ATRIAL FIBRILLATION 02/25/2016 ESTELA SALINAS L CAREER AND TRANSITION TEACHER Ot J44.9 CHRONIC OBSTRUCTIVE PULMONARY DISEASE, U 02/25/2016 ESTELA SALINAS L CAREER AND TRANSITION TEACHER Ot R06.00 DYSPNEA, UNSPECIFIED 02/25/2016 BAIMA ESTELA L CAREER AND TRANSITION TEACHER Ot R07.9 CHEST PAIN, UNSPECIFIED 02/25/2016 LUIGI SALINASHER L CAREER AND TRANSITION TEACHER Ot Z79.01 HALFWAY (CURRENT) USE OF ANTICOAGULANT 02/26/2016 ZARI LU, SAIDA Oliveira Ot R06. 2 WHEEZING 03/03/2016 Ot 709.9 SKIN DISORDER NOS 03/03/2016 Ot V72.63 PRE -PROCEDURAL LABORATORY EXAMINATION 03/03/2016 Ot V74.8 SCRE EN-BACTERIAL DIS NEC 03/03/2016 Ot V58.61 ANTICOAGULANTS,LT,CURRENT USE 03/03/2016 Ot V58.83 ENC OUNTER FOR THERAPEUTIC DRUG MONITORIN 03/03/2016 ZHANE LU, JAMES Rodríguez Ot 286.9 COAGULAT DEFECT NEC/NOS 03/03/2016 ZARI LU, SAIDA Oliveira Ot 729. 5 PAIN IN LIMB 03/03/2016 SAIDA HAMEED MD Ot 729. 81 SWELLING OF LIMB 03/03/2016 TRACY JOSEPH DO Ot 278. 01 MORBID OBESITY 03/03/2016 TRACY JOSEPH DO Ot 311 DEPRESSIVE DISORDER NEC 03/03/2016 TRACY JOSEPH DO Ot 427. 31 ATRIAL FIBRILLATION 03/03/2016 TRACY JOSEPH DO Ot 496 CHR AIRWAY OBSTRUCT NEC 03/03/2016 SAIDA HAMEED MD Ot J40 BRONCHITIS, NOT SPECIFIED ACUTE OR CH 03/03/2016 ESTELA SALINAS CAREER AND TRANSITION TEACHER Ot G47.30 SLEEP APNEA, UNSPECIFIED 03/03/2016 ESTELA SALINAS L CAREER AND TRANSITION TEACHER Ot I48.91 UNSPECIFIED ATRIAL FIBRILLATION 03/03/2016 ESTELA SALINAS L CAREER AND TRANSITION TEACHER Ot J44.9 CHRONIC OBSTRUCTIVE PULMONARY DISEASE, U 03/03/2016 BAIMA, ESTELA L CAREER AND TRANSITION TEACHER Ot R06.00 DYSPNEA, UNSPECIFIED 03/03/2016 MELLYESTELA MARTINEZ CAREER AND TRANSITION TEACHER Ot R07.9 CHEST PAIN, UNSPECIFIED 03/03/2016 MELLYESTELA MARTINEZ CAREER AND TRANSITION TEACHER Ot Z79.01 TILE TRIMMER (CURRENT) USE OF ANTICOAGULANT 03/03/2016 ZARI LU, SAIDA R Ot R06. 2 WHEEZING 03/17/2016 ZARI LU, SAIDA R Ot R06. 2 WHEEZING 03/24/2016 ZARI LU, SAIDA R Ot R06. 2 WHEEZING 05/13/2016 NICK DO, CARISSA K Ot E66.01 MORBID (SEVERE) OBESITY DUE TO EXCESS CA 05/13/2016 NICK DO, CARISSA K Ot I10 ESSENTIAL (PRIMARY) HYPERTENSION 05/13/2016 NICK DO, CARISSA K Ot J44.9 CHRONIC OBSTRUCTIVE PULMONARY DISEASE, U 05/13/2016 NICK DO, CARISSA K Ot K52.9 NONINFECTIVE GASTROENTERITIS AND COLITIS 05/13/2016 NICK DO, CARISSA K Ot R11.2 NAUSEA WITH VOMITING, UNSPECIFIED 05/13/2016 NICK DO, CARISSA K Ot Z79.82 TILE TRIMMER (CURRENT) USE OF ASPIRIN 05/13/2016 NICK DO, CARISSA K Ot Z79.891 HALFWAY (CURRENT) USE OF OPIATE ANALGE 05/13/2016 NICK DO, CARISSA K Ot Z79.899 OTHER HALFWAY (CURRENT) DRUG THERAPY 05/14/2016 NICK DO, CARISSA K Ot E66.01 MORBID (SEVERE) OBESITY DUE TO EXCESS CA 05/14/2016 NICK DO, CARISSA K Ot I10 ESSENTIAL (PRIMARY) HYPERTENSION 05/14/2016 NICK DO, CARISSA K Ot J44.9 CHRONIC OBSTRUCTIVE PULMONARY DISEASE, U 05/14/2016 NICK DO, CARISSA K Ot K52.9 NONINFECTIVE GASTROENTERITIS AND COLITIS 05/14/2016 NICK DO, CARISSA K Ot R11.2 NAUSEA WITH VOMITING, UNSPECIFIED 05/14/2016 NICK DO, CARISSA K Ot Z79.82 HALFWAY (CURRENT) USE OF ASPIRIN 05/14/2016 NICK DO, CARISSA K Ot Z79.891 HALFWAY (CURRENT) USE OF OPIATE ANALGE 05/14/2016 NICK DO, CARISSA K Ot Z79.899 OTHER TILE TRIMMER (CURRENT) DRUG THERAPY 08/25/2016 Ot 709.9 SKIN DISORDER NOS 08/25/2016 Ot V72.63 PRE -PROCEDURAL LABORATORY EXAMINATION 08/25/2016 Ot V74.8 SCRE EN-BACTERIAL DIS NEC 08/25/2016 Ot V58.61 ANTICOAGULANTS,LT,CURRENT USE 08/25/2016 Ot V58.83 ENC OUNTER FOR THERAPEUTIC DRUG MONITORIN 08/25/2016 JAMES PHELAN MD Ot 286.9 COAGULAT DEFECT NEC/NOS 08/25/2016 ZARI LU, SAIDA Oliveira Ot 729. 5 PAIN IN LIMB 08/25/2016 SAIDA HAMEED MD Ot 729. 81 SWELLING OF LIMB 08/25/2016 TRACY JOSEPH DO Ot 278. 01 MORBID OBESITY 08/25/2016 TRACY JOSEPH DO Ot 311 DEPRESSIVE DISORDER NEC 08/25/2016 TRACY JOSEPH DO Ot 427. 31 ATRIAL FIBRILLATION 08/25/2016 TRACY JOSEPH DO Ot 496 CHR AIRWAY OBSTRUCT NEC 08/25/2016 SAIDA HAMEED MD Ot J40 BRONCHITIS, NOT SPECIFIED ACUTE OR CH 08/25/2016 ESTELA SALINAS L CAREER AND TRANSITION TEACHER Ot G47.30 SLEEP APNEA, UNSPECIFIED 08/25/2016 MELLYMALUIGIESTELA L CAREER AND TRANSITION TEACHER Ot I48.91 UNSPECIFIED ATRIAL FIBRILLATION 08/25/2016 ESTELA SALINAS L CAREER AND TRANSITION TEACHER Ot J44.9 CHRONIC OBSTRUCTIVE PULMONARY DISEASE, U 08/25/2016 MELLYMA ESTELA L CAREER AND TRANSITION TEACHER Ot R06.00 DYSPNEA, UNSPECIFIED 08/25/2016 MELLYMA ESTELA L CAREER AND TRANSITION TEACHER Ot R07.9 CHEST PAIN, UNSPECIFIED 08/25/2016 MELLYMA ESTELA L CAREER AND TRANSITION TEACHER Ot Z79.01 TILE TRIMMER (CURRENT) USE OF ANTICOAGULANT 08/25/2016 SAIDA HAMEED MD Ot R06. 2 WHEEZING 08/25/2016 Ot V58.61 ANTICOAGULANTS,LT,CURRENT USE 08/25/2016 Ot V58.83 ENC OUNTER FOR THERAPEUTIC DRUG MONITORIN 08/25/2016 JAMES PHELAN MD Ot I10 ESSENTIAL (PRIMARY) HYPERTENSION 08/25/2016 JAMES PHELAN MD Ot I25.10 ATHSCL HEART DISEASE OF [place] CORONARY 08/25/2016 JAMES PHELAN MD, Ot J44.9 CHRONIC OBSTRUCTIVE PULMONARY DISEASE, U 08/25/2016 JAMES PHELAN MD Ot M79.662 PAIN IN LEFT LOWER LEG 08/25/2016 JAMES PHELAN MD Ot R07.9 CHEST PAIN, UNSPECIFIED 08/25/2016 JAMES PHELAN MD Ot R42 DIZZINESS AND GIDDINESS 08/25/2016 JAMES PHELAN MD Ot Z79.899 OTHER TILE TRIMMER (CURRENT) DRUG THERAPY 08/26/2016 JAMES PHELAN MD Ot I10 ESSENTIAL (PRIMARY) HYPERTENSION 08/26/2016 JAMES PHELAN MD, Ot I25.10 ATHSCL HEART DISEASE OF [place] CORONARY 08/26/2016 JAMES PHELAN MD, Ot J44.9 [...] MD Ot I25.10 ATHSCL HEART DISEASE OF [place] CORONARY 11/30/2016 HUGH CORDOVA MD Ot I25.2 OLD MYOCARDIAL INFARCTION 11/30/2016 HUGH CORDOVA MD Ot I48.91 UNSPECIFIED ATRIAL FIBRILLATION 11/30/2016 HUGH CORDOVA MD, Ot J44.9 CHRONIC OBSTRUCTIVE PULMONARY DISEASE, U 11/30/2016 HUGH CORDOVA MD Ot R07.89 OTHER CHEST PAIN 11/30/2016 HUGH CORDOVA MD, Ot R10.84 GENERALIZED ABDOMINAL PAIN 11/30/2016 HUGH CORDOVA MD Ot R11.0 NAUSEA 11/30/2016 HUGH CORDOVA MD Ot R19.7 DIARRHEA, UNSPECIFIED 11/30/2016 HUGH CORDOVA MD, Ot R50.9 FEVER, UNSPECIFIED 11/30/2016 HUGH CORDOVA MD, Ot Z79.01 TILE TRIMMER (CURRENT) USE OF ANTICOAGULANT 11/30/2016 HUGH CORDOVA MD, Ot Z79.82 TILE TRIMMER (CURRENT) USE OF ASPIRIN 11/30/2016 HUGH CORDOVA [...] F31.9 BIPOLAR DISORDER, UNSPECIFIED 11/30/2016 HUGH CORDOVA MD, Ot F41.9 ANXIETY DISORDER, UNSPECIFIED 11/30/2016 HUGH CORDOVA MD, Ot G43.909 MIGRAINE, UNSP, NOT INTRACTABLE, WITHOUT 11/30/2016 HUGH CORDOVA MD Ot I10 ESSENTIAL (PRIMARY) HYPERTENSION 11/30/2016 HUGH CORDOVA MD Ot I25.10 ATHSCL HEART DISEASE OF [place] CORONARY 11/30/2016 BRUEGGEMANN MD, HUGH T Ot I25.2 OLD MYOCARDIAL INFARCTION 11/30/2016 HUGH CORDOVA MD Ot I48.91 UNSPECIFIED ATRIAL FIBRILLATION 11/30/2016 HUGH CORDOVA MD, Ot J44.9 CHRONIC OBSTRUCTIVE PULMONARY DISEASE, U 11/30/2016 HUGH CORDOVA MD Ot R07.89 OTHER CHEST PAIN 11/30/2016 HUGH CORDOVA MD Ot R10.84 GENERALIZED ABDOMINAL PAIN 11/30/2016 HUGH CORDOVA MD Ot R11.0 NAUSEA 11/30/2016 HUGH CORDOVA MD, Ot R19.7 DIARRHEA, UNSPECIFIED 11/30/2016 HUGH CORDOVA MD, Ot R50.9 FEVER, UNSPECIFIED 11/30/2016 HUGH CORDOVA MD Ot Z79.01 HALFWAY (CURRENT) USE OF ANTICOAGULANT 11/30/2016 HUGH CORDOVA MD Ot Z79.82 HALFWAY (CURRENT) USE OF ASPIRIN 11/30/2016 HUGH CORDOVA MD Ot Z85.828 PERSONAL HISTORY OF OTHER MALIGNANT NEOP 11/30/2016 HUGH CORDOVA MD Ot Z90.49 ACQUIRED ABSENCE OF OTHER SPECIFIED PART 11/30/2016 HUGH CORDOVA MD Ot Z90.710 ACQUIRED ABSENCE OF BOTH CERVIX AND UTER 11/30/2016 HUGH CORDOVA MD Ot Z98.51 TUBAL LIGATION STATUS 01/12/2017 JONNATHAN MALLOY APRN Ot E03 .9 HYPOTHYROIDISM, UNSPECIFIED 01/12/2017 JONNATHAN MALLOY APRN Ot E78.00 PURE HYPERCHOLESTEROLEMIA, UNSPECIFIED 01/12/2017 JONNATHAN MALLOY APRN Ot F31 .9 BIPOLAR DISORDER, UNSPECIFIED 01/12/2017 JONNATHAN MALLOY APRN Ot F41 .9 ANXIETY DISORDER, UNSPECIFIED 01/12/2017 JONNATHAN MALLOY APRN Ot G43.909 MIGRAINE, UNSP, NOT INTRACTABLE, WITHOUT 01/12/2017 JONNATHAN MALLOY APRN Ot I10 ESSENTIAL (PRIMARY) HYPERTENSION 01/12/2017 JONNATHAN MALLOY APRN Ot I25.10 ATHSCL HEART DISEASE OF [place] CORONARY 01/12/2017 JONNATHAN MALLOY APRN Ot I25 .2 OLD MYOCARDIAL INFARCTION 01/12/2017 JONNATHAN MALLOY APRN Ot I48.91 UNSPECIFIED ATRIAL FIBRILLATION 01/12/2017 JONNATHAN MALLOY APRN Ot J45.909 UNSPECIFIED ASTHMA, UNCOMPLICATED 01/12/2017 JONNATHAN MALLOY APRN Ot K21 .9 GASTRO-ESOPHAGEAL REFLUX DISEASE WITHOUT 01/12/2017 JONNATHAN MALOLY APRN Ot R06.00 DYSPNEA, UNSPECIFIED 01/12/2017 JONNATHAN MALLOY APRN Ot Z79.82 TILE TRIMMER (CURRENT) USE OF ASPIRIN 01/12/2017 JONNATHAN MALLOY APRN Ot Z87.81 PERSONAL HISTORY OF (HEALED) TRAUMATIC F 01/12/2017 JONNATHAN MALLOY APRN Ot Z90.710 ACQUIRED ABSENCE OF BOTH CERVIX AND UTER 01/12/2017 JONNATHAN MALLOY APRN Ot Z98.51 TUBAL LIGATION STATUS 01/14/2017 JONNATHAN MALLOY APRN Ot E03 .9 HYPOTHYROIDISM, UNSPECIFIED 01/14/2017 JONNATHAN MALLOY APRN Ot E78.00 PURE HYPERCHOLESTEROLEMIA, UNSPECIFIED 01/14/2017 JONNATHAN MALLOY APRN Ot F31 .9 BIPOLAR DISORDER, UNSPECIFIED 01/14/2017 JONNATHAN MALLOY APRN Ot F41 .9 ANXIETY DISORDER, UNSPECIFIED 01/14/2017 JONNATHAN MALLOY APRN Ot G43.909 MIGRAINE, UNSP, NOT INTRACTABLE, WITHOUT 01/14/2017 JONNATHAN MALLOY APRN Ot I10 ESSENTIAL (PRIMARY) HYPERTENSION 01/14/2017 JONNATHAN MALLOY APRN Ot I25.10 ATHSCL HEART DISEASE OF [place] CORONARY 01/14/2017 JONNATHAN MALLOY APRN Ot I25 .2 OLD MYOCARDIAL INFARCTION 01/14/2017 JONNATHAN MALLOY APRN Ot I48.91 UNSPECIFIED ATRIAL FIBRILLATION 01/14/2017 JONNATHAN MALLOY APRN Ot J45.909 UNSPECIFIED ASTHMA, UNCOMPLICATED 01/14/2017 JONNATHAN MALLOY APRN Ot K21 .9 GASTRO-ESOPHAGEAL REFLUX DISEASE WITHOUT 01/14/2017 JONNATHAN MALLOY APRN Ot R06.00 DYSPNEA, UNSPECIFIED 01/14/2017 JONNATHAN MALLOY APRN Ot Z79.82 HALFWAY (CURRENT) USE OF ASPIRIN 01/14/2017 JONNATHAN MALLOY APRN Ot Z87.81 PERSONAL HISTORY OF (HEALED) TRAUMATIC F 01/14/2017 JONNATHAN MALLOY APRN Ot Z90.710 ACQUIRED ABSENCE OF BOTH CERVIX AND UTER 01/14/2017 JONNATHAN MALLOY APRN Ot Z98.51 TUBAL LIGATION STATUS 01/18/2017 JONNATHAN MALLOY APRN Ot E03 .9 HYPOTHYROIDISM, UNSPECIFIED 01/18/2017 JONNATHAN MALLOY APRN Ot E78.00 PURE HYPERCHOLESTEROLEMIA, UNSPECIFIED 01/18/2017 JONNATHAN MALLOY APRN Ot F31 .9 BIPOLAR DISORDER, UNSPECIFIED 01/18/2017 JONNATHAN MALLOY APRN Ot F41 .9 ANXIETY DISORDER, UNSPECIFIED 01/18/2017 JONNATHAN MALLOY APRN Ot G43.909 MIGRAINE, UNSP, NOT INTRACTABLE, WITHOUT 01/18/2017 JONNATHAN MALLOY APRN Ot I10 ESSENTIAL (PRIMARY) HYPERTENSION 01/18/2017 JONNATHAN MALLOY APRN Ot I25.10 ATHSCL HEART DISEASE OF [place] CORONARY 01/18/2017 JONNATHAN MALLOY APRN Ot I25 .2 OLD MYOCARDIAL INFARCTION 01/18/2017 JONNATHAN MALLOY APRN Ot I48.91 UNSPECIFIED ATRIAL FIBRILLATION 01/18/2017 JONNATHAN MALLOY APRN Ot J45.909 UNSPECIFIED ASTHMA, UNCOMPLICATED 01/18/2017 JONNATHAN MALLOY APRN Ot K21 .9 GASTRO-ESOPHAGEAL REFLUX DISEASE WITHOUT 01/18/2017 JONNATHAN MALLOY APRN Ot R06.00 DYSPNEA, UNSPECIFIED 01/18/2017 JONNATHAN MALLOY APRN Ot Z79.82 HALFWAY (CURRENT) USE OF ASPIRIN 01/18/2017 JONNATHAN MALLOY APRN Ot Z87.81 PERSONAL HISTORY OF (HEALED) TRAUMATIC F 01/18/2017 JONNATHAN MALLOY APRN Ot Z90.710 ACQUIRED ABSENCE OF BOTH CERVIX AND UTER 01/18/2017 JONNATHAN MALLOY APRN Ot Z98.51 TUBAL LIGATION STATUS 03/28/2017 NICKJona SALAZAR CARISSA K Ot E03.9 HYPOTHYROIDISM, UNSPECIFIED 03/28/2017 NICK DO CARISSA K Ot E78.00 PURE HYPERCHOLESTEROLEMIA, UNSPECIFIED 03/28/2017 NICK DO CARISSA K Ot F31.9 BIPOLAR DISORDER, UNSPECIFIED 03/28/2017 NICK SAALZAR CARISSA K Ot F41.9 ANXIETY DISORDER, UNSPECIFIED 03/28/2017 CARISSA ROMERO DO Ot G43.909 MIGRAINE, UNSP, NOT INTRACTABLE, WITHOUT 03/28/2017 CARISSA ROMERO DO Ot G47.33 OBSTRUCTIVE SLEEP APNEA (ADULT) (PEDIATR 03/28/2017 CARISSA ROMERO DO Ot I10 ESSENTIAL (PRIMARY) HYPERTENSION 03/28/2017 CARISSA ROMERO DO Ot I25.10 ATHSCL HEART DISEASE OF [place] CORONARY 03/28/2017 CARISSA ROMERO DO Ot I25.2 [...] KNEE 03/28/2017 CARISSA ROMERO DO Ot Z79.01 TILE TRIMMER (CURRENT) USE OF ANTICOAGULANT 03/28/2017 CARISSA ROMERO DO Ot Z79.82 HALFWAY (CURRENT) USE OF ASPIRIN 03/28/2017 CARISSA ROMERO [...] G43.909 MIGRAINE, UNSP, NOT INTRACTABLE, WITHOUT 03/31/2017 NICK SALAZAR CARISSA Roberto Ot G47.33 OBSTRUCTIVE SLEEP APNEA (ADULT) (PEDIATR 03/31/2017 NICK SALAZAR CARISSA Roberto Ot I10 ESSENTIAL (PRIMARY) HYPERTENSION 03/31/2017 NICK CARISSA Roberto Ot I25.10 ATHSCL HEART DISEASE OF [place] CORONARY 03/31/2017 NICK SALAZAR CARISSA Roberto Ot I25.2 OLD MYOCARDIAL INFARCTION 03/31/2017 NICK SALAZAR CARISSA Roberto Ot I48.91 UNSPECIFIED ATRIAL FIBRILLATION 03/31/2017 NICK SALAZAR CARISSA Roberto Ot I80.02 PHLEBITIS AND THOMBOPHLB OF SUPERFIC VES 03/31/2017 NICK DO CARISSA Roberto Ot J44.9 CHRONIC OBSTRUCTIVE PULMONARY DISEASE, U 03/31/2017 NICK DO CARISSA Roberto Ot M19.90 UNSPECIFIED OSTEOARTHRITIS, UNSPECIFIED 03/31/2017 NICK SALAZAR CARISSA Roberto Ot M25.562 PAIN IN LEFT KNEE 03/31/2017 NICK SALAZAR CARISSA Roberto Ot Z79.01 HALFWAY (CURRENT) USE OF ANTICOAGULANT 03/31/2017 NICK SALAZAR CARISSA Roberto Ot Z79.82 HALFWAY (CURRENT) USE OF ASPIRIN 03/31/2017 NICK SALAZAR CARISSA K Ot Z87.01 PERSONAL HISTORY OF PNEUMONIA (RECURRENT 03/31/2017 NICK SALAZAR CARISSA Mejia Ot Z87.09 PERSONAL HISTORY OF OTHER DISEASES OF TH 03/31/2017 NICK SALAZAR CARISSA Roberto Ot Z90.49 ACQUIRED ABSENCE OF OTHER SPECIFIED PART 03/31/2017 NICK DO CARISSA Roberto Ot Z90.710 ACQUIRED ABSENCE OF BOTH CERVIX AND UTER 03/31/2017 NICK DO CARISSA Roberto Ot Z98.51 TUBAL LIGATION STATUS 05/24/2017 SCARLET GARRETT APRN Ot M51.36 OTHER INTERVERTEBRAL DISC DEGENERATION, 05/24/2017 SCARLET GARRETT APRN Ot 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 06/08/2017 TASHA LU, HUGH Ba Ot E03.9 HYPOTHYROIDISM, UNSPECIFIED 06/08/2017 TASHA LU, HUGH Ba Ot E78.00 PURE HYPERCHOLESTEROLEMIA, UNSPECIFIED 06/08/2017 HUGH CORDOVA MD Ot F31.9 BIPOLAR DISORDER, UNSPECIFIED 06/08/2017 HUGH CORDOVA MD, Ot F41.9 ANXIETY DISORDER, UNSPECIFIED 06/08/2017 HUGH CORDOVA MD, Ot G43.909 MIGRAINE, UNSP, NOT INTRACTABLE, WITHOUT 06/08/2017 HUGH CORDOVA MD Ot G47.30 SLEEP APNEA, UNSPECIFIED 06/08/2017 HGUH CORDOVA MD Ot I10 ESSENTIAL (PRIMARY) HYPERTENSION 06/08/2017 HUGH CORDOVA MD, Ot I25.10 ATHSCL HEART DISEASE OF [place] CORONARY 06/08/2017 HUGH CORDOVA MD, Ot I25.2 OLD MYOCARDIAL INFARCTION 06/08/2017 HUGH CORDOVA MD Ot I48.91 UNSPECIFIED ATRIAL FIBRILLATION 06/08/2017 HUGH CORDOVA MD Ot I73.9 PERIPHERAL VASCULAR DISEASE, UNSPECIFIED 06/08/2017 HUGH CORDOVA MD, Ot J44.9 CHRONIC OBSTRUCTIVE PULMONARY DISEASE, U 06/08/2017 HUGH CORDOVA MD Ot R04.0 EPISTAXIS 06/08/2017 HUGH CORDOVA MD Ot Z79.01 TILE TRIMMER (CURRENT) USE OF ANTICOAGULANT 06/08/2017 HUGH CORDOVA MD Ot Z79.82 HALFWAY (CURRENT) USE OF ASPIRIN 06/08/2017 HUGH CORDOVA MD Ot Z87.01 PERSONAL HISTORY OF PNEUMONIA (RECURRENT 06/08/2017 HUGH CORDOVA MD Ot Z90.710 ACQUIRED ABSENCE OF BOTH CERVIX AND UTER 06/08/2017 HUGH CORDOVA MD Ot Z98.51 TUBAL LIGATION STATUS 06/09/2017 MOLLY ARANA Ot E03.9 HYPOTHYROIDISM, UNSPECIFIED 06/09/2017 MOLLY ARANA Ot E78.00 PURE HYPERCHOLESTEROLEMIA, UNSPECIFIED 06/09/2017 MOLLY ARANA Ot F31.9 BIPOLAR DISORDER, UNSPECIFIED 06/09/2017 MOLLY ARANA Ot F41.9 ANXIETY DISORDER, UNSPECIFIED 06/09/2017 MOLLY ARANA Ot G43.909 MIGRAINE, UNSP, NOT INTRACTABLE, WITHOUT 06/09/2017 MOLLY ARANA Ot G47.30 SLEEP APNEA, UNSPECIFIED 06/09/2017 MOLLY ARANA Ot I 10 ESSENTIAL (PRIMARY) HYPERTENSION 06/09/2017 MOLLY ARANA Ot I25.10 ATHSCL HEART DISEASE OF [place] CORONARY 06/09/2017 MOLLY ARANA Ot I25.2 OLD MYOCARDIAL INFARCTION 06/09/2017 MOLLY ARANA Ot I48.91 UNSPECIFIED ATRIAL FIBRILLATION 06/09/2017 MOLLY ARANA Ot I73.9 PERIPHERAL VASCULAR DISEASE, UNSPECIFIED 06/09/2017 MOLLY ARANA Ot J34.89 OTHER SPECIFIED DISORDERS OF NOSE AND NA 06/09/2017 MOLLY ARANA Ot J45.909 UNSPECIFIED ASTHMA, UNCOMPLICATED 06/09/2017 MOLLY ARANA Ot R04.0 EPISTAXIS 06/09/2017 MOLLY ARANA Ot Z79.01 HALFWAY (CURRENT) USE OF ANTICOAGULANT 06/09/2017 MOLLY ARANA [...] UNSP, NOT INTRACTABLE, WITHOUT 06/10/2017 HUGH CORDOVA MD, Ot G47.30 SLEEP APNEA, UNSPECIFIED 06/10/2017 HUGH CORDOVA MD, Ot I10 ESSENTIAL (PRIMARY) HYPERTENSION 06/10/2017 HUGH CORDOVA MD, Ot I25.10 ATHSCL HEART DISEASE OF [place] CORONARY 06/10/2017 HUGH CORDOVA MD, Ot I25.2 OLD MYOCARDIAL INFARCTION 06/10/2017 HUGH CORDOVA MD, Ot I48.91 UNSPECIFIED ATRIAL FIBRILLATION 06/10/2017 HUGH CORDOVA MD, Ot I73.9 PERIPHERAL VASCULAR DISEASE, UNSPECIFIED 06/10/2017 HUGH CORDOVA MD, Ot J44.9 CHRONIC OBSTRUCTIVE PULMONARY DISEASE, U 06/10/2017 HUGH CORDOVA MD, Ot R04.0 EPISTAXIS 06/10/2017 HUGH CORDOVA MD, Ot Z79.01 TILE TRIMMER (CURRENT) USE OF ANTICOAGULANT 06/10/2017 HUGH CORDOVA MD Ot Z79.82 TILE TRIMMER (CURRENT) USE OF ASPIRIN 06/10/2017 HUGH CORDOVA [...] SLEEP APNEA, UNSPECIFIED 06/11/2017 MOLLY ARANA Ot I 10 ESSENTIAL (PRIMARY) HYPERTENSION 06/11/2017 MOLLY ARANA Ot I25.10 ATHSCL HEART DISEASE OF [place] CORONARY 06/11/2017 MOLLY ARANA Ot I25.2 OLD MYOCARDIAL INFARCTION 06/11/2017 MOLLY ARANA Ot I48.91 UNSPECIFIED ATRIAL FIBRILLATION 06/11/2017 MOLLY ARANA Ot I73.9 PERIPHERAL VASCULAR DISEASE, UNSPECIFIED 06/11/2017 MOLLY ARANA Ot J34.89 OTHER SPECIFIED DISORDERS OF NOSE AND NA 06/11/2017 MOLLY ARANA Ot J45.909 UNSPECIFIED ASTHMA, UNCOMPLICATED 06/11/2017 MOLLY ARANA Ot R04.0 EPISTAXIS 06/11/2017 MOLLY ARANA Ot Z79.01 TILE TRIMMER (CURRENT) USE OF ANTICOAGULANT 06/11/2017 MOLLY ARANA [...] 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 07/18/2017 DEANNA ROMERO DOA K Ot E03.9 HYPOTHYROIDISM, UNSPECIFIED 07/18/2017 NICK DO CARISSA K Ot E78.00 PURE HYPERCHOLESTEROLEMIA, UNSPECIFIED 07/18/2017 NICK DO CARISSA K Ot F31.9 BIPOLAR DISORDER, UNSPECIFIED 07/18/2017 NICK DO CARISSA K Ot F41.9 ANXIETY DISORDER, UNSPECIFIED 07/18/2017 NICK DO CARISSA K Ot G43.909 MIGRAINE, UNSP, NOT INTRACTABLE, WITHOUT 07/18/2017 NCIK DO CARISSA K Ot G47.33 OBSTRUCTIVE SLEEP APNEA (ADULT) (PEDIATR 07/18/2017 NICK SALAZAR CARISSA K Ot I10 ESSENTIAL (PRIMARY) HYPERTENSION 07/18/2017 NICK SALAZAR CARISSA Mejia Ot I25.10 ATHSCL HEART DISEASE OF [place] CORONARY 07/18/2017 NICK SALAZAR CARISSA Mejia Ot I25.2 OLD MYOCARDIAL INFARCTION 07/18/2017 NICK SALAZAR CARISSA Mejia Ot I48.91 UNSPECIFIED ATRIAL FIBRILLATION 07/18/2017 NICK SALAZAR CARISSA Mejia Ot I80.02 PHLEBITIS AND THOMBOPHLB OF SUPERFIC VES 07/18/2017 NICK SALAZAR CARISSA Roberto Ot J44.9 CHRONIC OBSTRUCTIVE PULMONARY DISEASE, U 07/18/2017 NICK SALAZAR CARISSA Mejia Ot M19.90 UNSPECIFIED OSTEOARTHRITIS, UNSPECIFIED 07/18/2017 NICK SALAZAR CARISSA Mejia Ot M25.562 PAIN IN LEFT KNEE 07/18/2017 NICK SALAZAR CARISSA Mejia Ot Z79.01 HALFWAY (CURRENT) USE OF ANTICOAGULANT 07/18/2017 NICK SALAZAR CARISSA Mejia Ot Z79.82 HALFWAY (CURRENT) USE OF ASPIRIN 07/18/2017 NICK SALAZAR CARISSA Mejia Ot Z87.01 PERSONAL HISTORY OF PNEUMONIA (RECURRENT 07/18/2017 NICK SALAZAR CARISSA Mejia Ot Z87.09 PERSONAL HISTORY OF OTHER DISEASES OF TH 07/18/2017 NICK SALAZAR CARISSA Mejia Ot Z90.49 ACQUIRED ABSENCE OF OTHER SPECIFIED PART 07/18/2017 NICK SALAZAR CARISSA Mejia Ot Z90.710 ACQUIRED ABSENCE OF BOTH CERVIX AND UTER 07/18/2017 NICK SALAZAR CARISSA Mejia Ot Z98.51 TUBAL LIGATION STATUS 02/15/2018 ZHANE LU, JAMES Rodríguez Ot 286.9 COAGULAT DEFECT NEC/NOS 02/15/2018 ZARI LU, SAIDA R Ot 729. 5 PAIN IN LIMB 02/15/2018 ZARI LU, SAIDA R Ot 729. 81 SWELLING OF LIMB 02/15/2018 TRACY JOSEPH DO Ot 278. 01 MORBID OBESITY 02/15/2018 TRACY JOSEPH DO Ot 311 DEPRESSIVE DISORDER NEC 02/15/2018 TRACY JOSEPH DO Ot 427. 31 ATRIAL FIBRILLATION 02/15/2018 TRACY JOSEPH DO Ot 496 CHR AIRWAY OBSTRUCT NEC 02/15/2018 ZARI LU, SAIDA R Ot J40 BRONCHITIS, NOT SPECIFIED ACUTE OR CH 02/15/2018 LUIGI SALINASHER Katiuska CAREER AND TRANSITION TEACHER Ot G47.30 SLEEP APNEA, UNSPECIFIED 02/15/2018 ESTELA SALINAS CAREER AND TRANSITION TEACHER Ot I48.91 UNSPECIFIED ATRIAL FIBRILLATION 02/15/2018 ESTELA SALINAS CAREER AND TRANSITION TEACHER Ot J44.9 CHRONIC OBSTRUCTIVE PULMONARY DISEASE, U 02/15/2018 RITA ESTELA Harp CAREER AND TRANSITION TEACHER Ot R06.00 DYSPNEA, UNSPECIFIED 02/15/2018 ESTELA SALINAS CAREER AND TRANSITION TEACHER Ot R07.9 CHEST PAIN, UNSPECIFIED 02/15/2018 RITA ESTELA L CAREER AND TRANSITION TEACHER Ot Z79.01 TILE TRIMMER (CURRENT) USE OF ANTICOAGULANT 02/15/2018 ZARI LU, SAIDA R Ot R06. 2 WHEEZING 02/15/2018 SCARLET GARRETT APRN Ot M51.36 OTHER INTERVERTEBRAL DISC DEGENERATION, 02/15/2018 SCARLET GARRETT APRN Ot 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 02/15/2018 JONNATHAN MALLOY APRN Ot E03 .9 HYPOTHYROIDISM, UNSPECIFIED 02/15/2018 JONNATHAN MALLOY APRN Ot E78.00 PURE HYPERCHOLESTEROLEMIA, UNSPECIFIED 02/15/2018 JONNATHAN MALLOY APRN Ot F31 .9 BIPOLAR DISORDER, UNSPECIFIED 02/15/2018 JONNATHAN MALLOY APRN Ot F41 .9 ANXIETY DISORDER, UNSPECIFIED 02/15/2018 JONNATHAN MALLOY APRN Ot G43.909 MIGRAINE, UNSP, NOT INTRACTABLE, WITHOUT 02/15/2018 JONNATHAN MALLOY APRN Ot I10 ESSENTIAL (PRIMARY) HYPERTENSION 02/15/2018 JONNATHAN MALLOY APRN Ot I25.10 ATHSCL HEART DISEASE OF [place] CORONARY 02/15/2018 JONNATHAN MALLOY APRN Ot I25 .2 OLD MYOCARDIAL INFARCTION 02/15/2018 JONNATHAN MALLOY APRN Ot I48.91 UNSPECIFIED ATRIAL FIBRILLATION 02/15/2018 JONNATHAN MALLOY APRN, Ot J44 .9 CHRONIC OBSTRUCTIVE PULMONARY DISEASE, U 02/15/2018 JONNATHAN MALLOY APRN Ot K52 .9 NONINFECTIVE GASTROENTERITIS AND COLITIS 02/15/2018 JONNATHAN MALLOY APRN Ot R11 .0 NAUSEA 02/15/2018 JONNATHAN MALLOY APRN Ot Z79.82 HALFWAY (CURRENT) USE OF ASPIRIN 02/15/2018 JONNATHAN MALLOY APRN Ot Z90.49 ACQUIRED ABSENCE OF OTHER SPECIFIED PART 02/15/2018 JONNATHAN MALLOY APRN Ot Z90.710 ACQUIRED ABSENCE OF BOTH CERVIX AND UTER 02/15/2018 JONNATHAN MALLOY APRN Ot Z98.51 TUBAL LIGATION STATUS 02/17/2018 JONNATHAN MALLOY APRN Ot E03 .9 HYPOTHYROIDISM, UNSPECIFIED 02/17/2018 JONNATHAN MALLOY APRN Ot E78.00 PURE HYPERCHOLESTEROLEMIA, UNSPECIFIED 02/17/2018 JONNATHAN MALLOY APRN Ot F31 .9 BIPOLAR DISORDER, UNSPECIFIED 02/17/2018 JONNATHAN MALLOY APRN Ot F41 .9 ANXIETY DISORDER, UNSPECIFIED 02/17/2018 JONNATHAN MALLOY APRN Ot G43.909 MIGRAINE, UNSP, NOT INTRACTABLE, WITHOUT 02/17/2018 JONNATHAN MALLOY APRN Ot I10 ESSENTIAL (PRIMARY) HYPERTENSION 02/17/2018 JONNATHAN MALLOY APRN Ot I25.10 ATHSCL HEART DISEASE OF [place] CORONARY 02/17/2018 JONNATHAN MALLOY APRN Ot I25 .2 OLD MYOCARDIAL INFARCTION 02/17/2018 JONNATHAN MALLOY APRN Ot I48.91 UNSPECIFIED ATRIAL FIBRILLATION 02/17/2018 JONNATHAN MALLOY APRN Ot J44 .9 CHRONIC OBSTRUCTIVE PULMONARY DISEASE, U 02/17/2018 JONNATHAN MALLOY APRN Ot K52 .9 NONINFECTIVE GASTROENTERITIS AND COLITIS 02/17/2018 JONNATHAN MALLOY APRN Ot R11 .0 NAUSEA 02/17/2018 JONNATHAN MALLOY APRN Ot Z79.82 HALFWAY (CURRENT) USE OF ASPIRIN 02/17/2018 JONNATHAN MALLOY APRN Ot Z90.49 ACQUIRED ABSENCE OF OTHER SPECIFIED PART 02/17/2018 JONNATHAN MALLOY APRN Ot Z90.710 ACQUIRED ABSENCE OF BOTH CERVIX AND UTER 02/17/2018 JONNATHAN MALLOY APRN Ot Z98.51 TUBAL LIGATION STATUS 02/21/2018 EFRAIN PARKS MD Ot E03. 9 HYPOTHYROIDISM, UNSPECIFIED 02/21/2018 EFRAIN PARKS MD Ot E66. 01 MORBID (SEVERE) OBESITY DUE TO EXCESS CA 02/21/2018 EFRAIN PARKS MD Ot E78. 5 HYPERLIPIDEMIA, UNSPECIFIED 02/21/2018 EFRAIN PARKS MD Ot F32. 9 MAJOR DEPRESSIVE DISORDER, SINGLE EPISOD 02/21/2018 EFRAIN PARKS MD, Ot G47. 30 SLEEP APNEA, UNSPECIFIED 02/21/2018 EFRAIN PARKS MD, Ot I25. 10 ATHSCL HEART DISEASE OF [place] CORONARY 02/21/2018 EFRAIN PARKS MD, Ot I25. 2 OLD MYOCARDIAL INFARCTION 02/21/2018 EFRAIN PARKS MD, Ot I48. 91 UNSPECIFIED ATRIAL FIBRILLATION 02/21/2018 EFRAIN PARKS MD, Ot I73. 9 PERIPHERAL VASCULAR DISEASE, UNSPECIFIED 02/21/2018 EFRAIN PARKS MD, Ot J44. 9 CHRONIC OBSTRUCTIVE PULMONARY DISEASE, U 02/21/2018 EFRAIN PARKS MD, Ot K21. 9 GASTRO-ESOPHAGEAL REFLUX DISEASE WITHOUT 02/21/2018 EFRAIN PARKS MD, Ot M25.572 PAIN IN LEFT ANKLE AND JOINTS OF LEFT FO 02/21/2018 EFRAIN PARKS MD, Ot R06. 09 OTHER FORMS OF DYSPNEA 02/21/2018 EFRAIN PARKS MD, Ot R07. 9 CHEST PAIN, UNSPECIFIED 02/21/2018 EFRAIN PRAKS MD, Ot R11. 0 NAUSEA 02/21/2018 EFRAIN PARKS MD, Ot R42 DIZZINESS AND GIDDINESS 02/21/2018 EFRAIN PARKS MD, Ot Z68. 41 BODY MASS INDEX (BMI) 40.0-44.9, ADULT 02/21/2018 EFRAIN PARKS MD, Ot Z79. 01 HALFWAY (CURRENT) USE OF ANTICOAGULANT 02/21/2018 EFRAIN PARKS MD, Ot Z79. 82 HALFWAY (CURRENT) USE OF ASPIRIN 02/21/2018 EFRAIN PARKS MD, Ot Z79.899 OTHER HALFWAY (CURRENT) DRUG THERAPY 02/21/2018 EFRAIN PARKS MD, Ot Z91. 19 PATIENT'S NONCOMPLIANCE W [facility] TR 02/21/2018 EFRAIN PARKS MD, Ot E03. 9 HYPOTHYROIDISM, UNSPECIFIED 02/21/2018 EFRAIN PARKS MD, Ot E66. 01 MORBID (SEVERE) OBESITY DUE TO EXCESS CA 02/21/2018 EFRAIN PARKS MD, Ot E78. 5 HYPERLIPIDEMIA, UNSPECIFIED 02/21/2018 EFRAIN PARKS MD, Ot F32. 9 MAJOR DEPRESSIVE DISORDER, SINGLE EPISOD 02/21/2018 EFRAIN PARKS MD, Ot G47. 30 SLEEP APNEA, UNSPECIFIED 02/21/2018 EFRAIN PARKS MD, Ot I25. 10 ATHSCL HEART DISEASE OF [place] CORONARY 02/21/2018 EFRAIN PARKS MD, Ot I25. 2 OLD MYOCARDIAL INFARCTION 02/21/2018 EFRAIN PARKS MD, Ot I48. 91 UNSPECIFIED ATRIAL FIBRILLATION 02/21/2018 EFRAIN PARKS MD, Ot I73. 9 PERIPHERAL VASCULAR DISEASE, UNSPECIFIED 02/21/2018 EFRAIN PARKS MD, Ot J44. 9 CHRONIC OBSTRUCTIVE PULMONARY DISEASE, U 02/21/2018 EFRAIN PARKS MD, Ot K21. 9 GASTRO-ESOPHAGEAL REFLUX DISEASE WITHOUT 02/21/2018 EFRAIN PARKS MD, Ot M25.572 PAIN IN LEFT ANKLE AND JOINTS OF LEFT FO 02/21/2018 EFRAIN PARKS MD, Ot R06. 09 OTHER FORMS OF DYSPNEA 02/21/2018 EFRAIN PARKS MD, Ot R07. 9 CHEST PAIN, UNSPECIFIED 02/21/2018 EFRAIN PARKS MD, Ot R11. 0 NAUSEA 02/21/2018 EFRAIN PARKS MD, Ot R42 DIZZINESS AND GIDDINESS 02/21/2018 EFRAIN PARKS MD, Ot Z68. 41 BODY MASS INDEX (BMI) 40.0-44.9, ADULT 02/21/2018 EFRAIN PARKS MD, Ot Z79. 01 HALFWAY (CURRENT) USE OF ANTICOAGULANT 02/21/2018 EFRAIN PARKS MD Ot Z79. 82 TILE TRIMMER (CURRENT) USE OF ASPIRIN 02/21/2018 EFRAIN PARKS MD, Ot Z79.899 OTHER HALFWAY (CURRENT) DRUG THERAPY 02/21/2018 EFRAIN PARKS MD, Ot Z91. 19 PATIENT'S NONCOMPLIANCE W [facility] MED[facility] TR 02/22/2018 SCARLET GARRETT APRN Ot [...] MD Ot I25.10 ATHSCL HEART DISEASE OF [place] CORONARY 02/23/2018 JAMES PHELAN MD Ot I25.2 OLD MYOCARDIAL INFARCTION 02/23/2018 JAMES PHELAN MD Ot I48.91 UNSPECIFIED ATRIAL FIBRILLATION 02/23/2018 JAMES PHELAN MD Ot I73.9 PERIPHERAL VASCULAR DISEASE, UNSPECIFIED 02/23/2018 JAMES PHELAN MD Ot J44.9 CHRONIC OBSTRUCTIVE PULMONARY DISEASE, U 02/23/2018 JAMES PHELAN MD Ot L03.116 CELLULITIS OF LEFT LOWER LIMB 02/23/2018 JAMES PHELAN MD Ot M79.662 PAIN IN LEFT LOWER LEG 02/23/2018 JAMES PHELAN MD Ot Z79.01 HALFWAY (CURRENT) USE OF ANTICOAGULANT 02/23/2018 JAMES PHELAN MD Ot Z79.82 TILE TRIMMER (CURRENT) USE OF ASPIRIN 02/23/2018 JAMES PHELAN MD Ot Z87.01 PERSONAL HISTORY OF PNEUMONIA (RECURRENT 02/23/2018 JAMES PHELAN MD Ot Z90.710 ACQUIRED ABSENCE OF BOTH CERVIX AND UTER 02/23/2018 JAMES PHELAN MD Ot Z90.89 ACQUIRED ABSENCE OF OTHER ORGANS 02/23/2018 JAMES PHELAN MD Ot Z98.51 TUBAL LIGATION STATUS 02/23/2018 JAMES PHELAN MD Ot Z98.890 OTHER SPECIFIED POSTPROCEDURAL STATES 02/25/2018 JAMES PHELAN MD, Ot E03.9 HYPOTHYROIDISM, UNSPECIFIED 02/25/2018 JAMES PHELAN MD, Ot E78.00 PURE HYPERCHOLESTEROLEMIA, UNSPECIFIED 02/25/2018 JAMES PHELAN MD, Ot F31.9 BIPOLAR DISORDER, UNSPECIFIED 02/25/2018 JAMES PHELAN MD, Ot F41.9 ANXIETY DISORDER, UNSPECIFIED 02/25/2018 JAMES PHELAN MD, Ot G43.909 MIGRAINE, UNSP, NOT INTRACTABLE, WITHOUT 02/25/2018 JAMES PHELAN MD, Ot G47.30 SLEEP APNEA, UNSPECIFIED 02/25/2018 JAMES PHELAN MD, Ot I10 ESSENTIAL (PRIMARY) HYPERTENSION 02/25/2018 JAMES PHELAN MD, Ot I25.10 ATHSCL HEART DISEASE OF [place] CORONARY 02/25/2018 JAMES PHELAN MD, Ot I25.2 OLD MYOCARDIAL INFARCTION 02/25/2018 JAMES PHELAN MD, Ot I48.91 UNSPECIFIED ATRIAL FIBRILLATION 02/25/2018 JAMES PHELAN MD, Ot I73.9 PERIPHERAL VASCULAR DISEASE, UNSPECIFIED 02/25/2018 JAMES PHELAN MD, Ot J44.9 CHRONIC OBSTRUCTIVE PULMONARY DISEASE, U 02/25/2018 JAMES PHELAN MD Ot L03.116 CELLULITIS OF LEFT LOWER LIMB 02/25/2018 JAMES PHELAN MD Ot M79.662 PAIN IN LEFT LOWER LEG 02/25/2018 JAMES PHELAN MD Ot Z79.01 TILE TRIMMER (CURRENT) USE OF ANTICOAGULANT 02/25/2018 JAMES PHELAN MD Ot Z79.82 TILE TRIMMER (CURRENT) USE OF ASPIRIN 02/25/2018 JAMES PHELAN MD, Ot Z87.01 PERSONAL HISTORY OF PNEUMONIA (RECURRENT 02/25/2018 JAMES PHELAN MD, Ot Z90.710 ACQUIRED ABSENCE OF BOTH CERVIX AND UTER 02/25/2018 JAMES PHELAN MD, Ot Z90.89 ACQUIRED ABSENCE OF OTHER ORGANS 02/25/2018 JAMES PHELAN MD Ot Z98.51 TUBAL LIGATION STATUS 02/25/2018 JAMES PHELAN MD, Ot Z98.890 OTHER SPECIFIED POSTPROCEDURAL STATES 03/14/2018 SCARLET GARRETT APRN Ot L53.9 ERYTHEMATOUS CONDITION, UNSPECIFIED 03/14/2018 SCARLET GARRETT R AUTOMATIC DEVELOPER Ot M79.89 OTHER SPECIFIED SOFT TISSUE DISORDERS 03/29/2018 SCARLET GARRETT AUTOMATIC DEVELOPER Ot L53.9 ERYTHEMATOUS CONDITION, UNSPECIFIED 03/29/2018 SCARLET GARRETT R AUTOMATIC DEVELOPER Ot M79.89 OTHER SPECIFIED SOFT TISSUE DISORDERS 04/21/2018 TRAVIS LU, STEFAN J Ot R22. 31 LOCALIZED SWELLING, MASS AND LUMP, RIGHT 04/21/2018 TRAVIS LU, STEFAN J Ot R58 HEMORRHAGE, NOT ELSEWHERE CLASSIFIED 04/23/2018 TRAVIS LU, STEFAN J Ot R22. 31 LOCALIZED SWELLING, MASS AND LUMP, RIGHT 04/23/2018 TRAVIS LU, STEFAN J Ot R58 HEMORRHAGE, NOT ELSEWHERE CLASSIFIED 05/25/2018 REBEKAH JAYDEN CAREER AND TRANSITION TEACHER Ot E03.9 HYPOTHYROIDISM, UNSPECIFIED 05/25/2018 REBEKAH, JAYDEN CAREER AND TRANSITION TEACHER Ot E78.00 PURE HYPERCHOLESTEROLEMIA, UNSPECIFIED 05/25/2018 REBEKAH, JAYDEN CAREER AND TRANSITION TEACHER Ot F31.9 BIPOLAR DISORDER, UNSPECIFIED 05/25/2018 REBEKAH, JAYDEN CAREER AND TRANSITION TEACHER Ot F41.9 ANXIETY DISORDER, UNSPECIFIED 05/25/2018 REBEKAH, JAYDEN CAREER AND TRANSITION TEACHER Ot G43.909 MIGRAINE, UNSP, NOT INTRACTABLE, WITHOUT 05/25/2018 REBEKAH, JAYDEN CAREER AND TRANSITION TEACHER Ot G47.30 SLEEP APNEA, UNSPECIFIED 05/25/2018 REBEKAH, JAYDEN CAREER AND TRANSITION TEACHER Ot I10 ESSENTIAL (PRIMARY) HYPERTENSION 05/25/2018 REBEKAH JAYDEN CAREER AND TRANSITION TEACHER Ot I25.10 ATHSCL HEART DISEASE OF [place] CORONARY 05/25/2018 REBEKAH JAYDEN CAREER AND TRANSITION TEACHER Ot I25.2 OLD MYOCARDIAL INFARCTION 05/25/2018 REBEKAH JAYDEN CAREER AND TRANSITION TEACHER Ot I48.91 UNSPECIFIED ATRIAL FIBRILLATION 05/25/2018 REBEKAH, JAYDEN CAREER AND TRANSITION TEACHER Ot I73.9 PERIPHERAL VASCULAR DISEASE, UNSPECIFIED 05/25/2018 REBEKAH, JAYDEN CAREER AND TRANSITION TEACHER Ot J20.9 ACUTE BRONCHITIS, UNSPECIFIED 05/25/2018 REBEKAH, JAYDEN CAREER AND TRANSITION TEACHER Ot J44.0 CHRONIC OBSTRUCTIVE PULMON DISEASE W ACU 05/25/2018 REBEKAH, JAYDEN CAREER AND TRANSITION TEACHER Ot J44.1 CHRONIC OBSTRUCTIVE PULMONARY DISEASE W 05/25/2018 REBEKAH JAYDEN CAREER AND TRANSITION TEACHER Ot R06.09 OTHER FORMS OF DYSPNEA 05/25/2018 REBEKAH, JAYDEN CAREER AND TRANSITION TEACHER Ot Z79.01 TILE TRIMMER (CURRENT) USE OF ANTICOAGULANT 05/25/2018 JAYDEN WELCHP Ot Z79.51 TILE TRIMMER (CURRENT) USE OF INHALED STERO 05/25/2018 JAYDEN WELCHP Ot Z79.52 TILE TRIMMER (CURRENT) USE OF SYSTEMIC STER 05/25/2018 JAYDEN WELCHP Ot Z79.82 HALFWAY (CURRENT) USE OF ASPIRIN 05/25/2018 JAYDEN WELCHP Ot Z82.49 FAMILY HX OF ISCHEM HEART DIS AND OTH DI 05/25/2018 JAYDEN WELCHP Ot Z87.01 PERSONAL HISTORY OF PNEUMONIA (RECURRENT 05/25/2018 JAYDEN WELCHP Ot Z87.09 PERSONAL HISTORY OF OTHER DISEASES OF TH 05/25/2018 JAYDEN WELCHP Ot Z90.49 ACQUIRED ABSENCE OF OTHER SPECIFIED PART 05/25/2018 JAYDEN WELCHP Ot Z90.710 ACQUIRED ABSENCE OF BOTH CERVIX AND UTER 05/25/2018 JAYDEN WELCHP Ot Z98.51 TUBAL LIGATION STATUS 05/25/2018 JAYDEN WELCH CAREER AND TRANSITION TEACHER Ot Z98.890 OTHER SPECIFIED POSTPROCEDURAL STATES 05/27/2018 JAYDEN WELCH CAREER AND TRANSITION TEACHER Ot E03.9 HYPOTHYROIDISM, UNSPECIFIED 05/27/2018 REBEKAH JAYDEN CAREER AND TRANSITION TEACHER Ot E78.00 PURE HYPERCHOLESTEROLEMIA, UNSPECIFIED 05/27/2018 REBEKAH JAYDEN CAREER AND TRANSITION TEACHER Ot F31.9 BIPOLAR DISORDER, UNSPECIFIED 05/27/2018 REBEKAH JAYDEN CAREER AND TRANSITION TEACHER Ot F41.9 ANXIETY DISORDER, UNSPECIFIED 05/27/2018 JAYDEN WELCH CAREER AND TRANSITION TEACHER Ot G43.909 MIGRAINE, UNSP, NOT INTRACTABLE, WITHOUT 05/27/2018 REBEKAH JAYDEN CAREER AND TRANSITION TEACHER Ot G47.30 SLEEP APNEA, UNSPECIFIED 05/27/2018 REBEKAH JAYDEN CAREER AND TRANSITION TEACHER Ot I10 ESSENTIAL (PRIMARY) HYPERTENSION 05/27/2018 JAYDEN WELCH CAREER AND TRANSITION TEACHER Ot I25.10 ATHSCL HEART DISEASE OF [place] CORONARY 05/27/2018 JAYDEN WELCH CAREER AND TRANSITION TEACHER Ot I25.2 OLD MYOCARDIAL INFARCTION 05/27/2018 JAYDEN WELCH CAREER AND TRANSITION TEACHER Ot I48.91 UNSPECIFIED ATRIAL FIBRILLATION 05/27/2018 JAYDEN WELCH CAREER AND TRANSITION TEACHER Ot I73.9 PERIPHERAL VASCULAR DISEASE, UNSPECIFIED 05/27/2018 JAYDEN WELCH CAREER AND TRANSITION TEACHER Ot J20.9 ACUTE BRONCHITIS, UNSPECIFIED 05/27/2018 JAYDEN WELCHP Ot J44.0 CHRONIC OBSTRUCTIVE PULMON DISEASE W ACU 05/27/2018 JAYDEN WELCHP Ot J44.1 CHRONIC OBSTRUCTIVE PULMONARY DISEASE W 05/27/2018 JAYDEN WELCHP Ot R06.09 OTHER FORMS OF DYSPNEA 05/27/2018 JAYDEN WELCHP Ot Z79.01 HALFWAY (CURRENT) USE OF ANTICOAGULANT 05/27/2018 JAYDEN WELCHP Ot Z79.51 TILE TRIMMER (CURRENT) USE OF INHALED STERO 05/27/2018 JAYDEN WELCHP Ot Z79.52 HALFWAY (CURRENT) USE OF SYSTEMIC STER 05/27/2018 JAYDEN WELCHP Ot Z79.82 HALFWAY (CURRENT) USE OF ASPIRIN 05/27/2018 JAYDEN WELCHP Ot Z82.49 FAMILY HX OF ISCHEM HEART DIS AND OTH DI 05/27/2018 JAYDEN WELCHP Ot Z87.01 PERSONAL HISTORY OF PNEUMONIA (RECURRENT 05/27/2018 JAYDEN WELCHP Ot Z87.09 PERSONAL HISTORY OF OTHER DISEASES OF TH 05/27/2018 JAYDEN WELCHP Ot Z90.49 ACQUIRED ABSENCE OF OTHER SPECIFIED PART 05/27/2018 JAYDEN WELCHP Ot Z90.710 ACQUIRED ABSENCE OF BOTH CERVIX AND UTER 05/27/2018 JAYDEN WELCHP Ot Z98.51 TUBAL LIGATION STATUS 05/27/2018 JAYDEN WELCHP Ot Z98.890 OTHER SPECIFIED POSTPROCEDURAL STATES 05/31/2018 CHINEDU BAEZ Ot E03.9 HYPOTHYROIDISM, UNSPECIFIED 05/31/2018 DESIREE BAEZIS Ot E78.00 PURE HYPERCHOLESTEROLEMIA, UNSPECIFIED 05/31/2018 DESIREE BAEZIS Ot F31.9 BIPOLAR DISORDER, UNSPECIFIED 05/31/2018 DESIREE BAEZIS Ot F41.9 ANXIETY DISORDER, UNSPECIFIED 05/31/2018 DESIREE BAEZIS Ot I10 ESSENTIAL (PRIMARY) HYPERTENSION 05/31/2018 DESIREE BAEZIS Ot I25.10 ATHSCL HEART DISEASE OF [place] CORONARY 05/31/2018 DESIREE BAEZIS Ot I25.2 OLD MYOCARDIAL INFARCTION 05/31/2018 CHINEDU BAEZ Ot I48.91 UNSPECIFIED ATRIAL FIBRILLATION 05/31/2018 DESIREE BAEZIS Ot I73.9 PERIPHERAL VASCULAR DISEASE, UNSPECIFIED 05/31/2018 DESIREE BAEZIS Ot J44.1 CHRONIC OBSTRUCTIVE PULMONARY DISEASE W 05/31/2018 CHINEDU BAEZ Ot R06.02 SHORTNESS OF BREATH 05/31/2018 DESIREE BAEZIS Ot Z77.22 CNTCT W AND EXPSR TO ENVIRON TOBACCO SMO 05/31/2018 DESIREE BAEZIS Ot Z79.51 TILE TRIMMER (CURRENT) USE OF INHALED STERO 05/31/2018 DESIREE BAEZIS Ot Z79.82 HALFWAY (CURRENT) USE OF ASPIRIN 05/31/2018 DESIREE BAEZIS Ot Z86.69 PERSONAL HISTORY OF DIS OF THE NERVOUS S 05/31/2018 CHINEDU BAEZ Ot Z87.01 PERSONAL HISTORY OF PNEUMONIA (RECURRENT 05/31/2018 CHINEDU BAEZ Ot Z90.49 ACQUIRED ABSENCE OF OTHER SPECIFIED PART 05/31/2018 CHINEDU BAEZ Ot Z90.710 ACQUIRED ABSENCE OF BOTH CERVIX AND UTER 05/31/2018 CHINEDU BAEZ Ot Z98.51 TUBAL LIGATION STATUS 06/02/2018 CHINEDU BAEZ Ot E03.9 HYPOTHYROIDISM, UNSPECIFIED 06/02/2018 DESIREE BAEZIS Ot E78.00 PURE HYPERCHOLESTEROLEMIA, UNSPECIFIED 06/02/2018 DESIREE BAEZIS Ot F31.9 BIPOLAR DISORDER, UNSPECIFIED 06/02/2018 CHINEDU BAEZ Ot F41.9 ANXIETY DISORDER, UNSPECIFIED 06/02/2018 DESIREE BAEZIS Ot I10 ESSENTIAL (PRIMARY) HYPERTENSION 06/02/2018 DESIREE BAEZIS Ot I25.10 ATHSCL HEART DISEASE OF [place] CORONARY 06/02/2018 CHINEDU BAEZ Ot I25.2 OLD MYOCARDIAL INFARCTION 06/02/2018 DESIREE BAEZIS Ot I48.91 UNSPECIFIED ATRIAL FIBRILLATION 06/02/2018 DESIREE BAEZIS Ot I73.9 PERIPHERAL VASCULAR DISEASE, UNSPECIFIED 06/02/2018 CHINEDU BAEZ Ot J44.1 CHRONIC OBSTRUCTIVE PULMONARY DISEASE W 06/02/2018 CHINEDU BAEZ Ot R06.02 SHORTNESS OF BREATH 06/02/2018 CHINEDU BAEZ Ot Z77.22 CNTCT W AND EXPSR TO ENVIRON TOBACCO SMO 06/02/2018 CHINEDU BAEZ Ot Z79.51 TILE TRIMMER (CURRENT) USE OF INHALED STERO 06/02/2018 CHINEDU BAEZ Ot Z79.82 HALFWAY (CURRENT) USE OF ASPIRIN 06/02/2018 CHINEDU BAEZ Ot Z86.69 PERSONAL HISTORY OF DIS OF THE NERVOUS S 06/02/2018 CHINEDU BAEZ Ot Z87.01 PERSONAL HISTORY OF PNEUMONIA (RECURRENT 06/02/2018 CHINEDU BAEZ Ot Z90.49 ACQUIRED ABSENCE OF OTHER SPECIFIED PART 06/02/2018 CHINEDU BAEZ Ot Z90.710 ACQUIRED ABSENCE OF BOTH CERVIX AND UTER 06/02/2018 CHINEDU BAEZ Ot Z98.51 TUBAL LIGATION STATUS 08/30/2018 CELIO LU FACC, SHIRA FACP CCDS Ot E03.9 HYPOTHYROIDISM, UNSPECIFIED 08/30/2018 CELIO LU FACC, ALI FACP CCDS Ot E66.9 OBESITY, UNSPECIFIED 08/30/2018 CELIO LU FACC, ALI FACP CCDS Ot E78.5 HYPERLIPIDEMIA, UNSPECIFIED 08/30/2018 CELIO LU FACC, ALI FACP CCDS Ot G47.33 OBSTRUCTIVE SLEEP APNEA (ADULT) (PEDIATR 08/30/2018 CELIO LU FACC, ALI FACP CCDS Ot I10 ESSENTIAL (PRIMARY) HYPERTENSION 08/30/2018 CELIO LU FACC, ALI FACP CCDS Ot I48.0 PAROXYSMAL ATRIAL FIBRILLATION 08/30/2018 CELIO LU FACC, ALI FACP CCDS Ot J44.9 CHRONIC OBSTRUCTIVE PULMONARY DISEASE, U 08/30/2018 CELIO LU FACC, ALI FACP CCDS Ot R00.2 PALPITATIONS 08/30/2018 CELIO LU FACC, ALI FACP CCDS Ot R06.09 OTHER FORMS OF DYSPNEA 08/30/2018 CELIO LU FACC, ALI FACP CCDS Ot R07.89 OTHER CHEST PAIN 08/30/2018 CELIO LU FACC, ALI FACP CCDS Ot Z68.41 BODY MASS INDEX (BMI) 40.0-44.9, ADULT 08/30/2018 CELIO LU FACC, ALI FACP CCDS Ot Z79.01 HALFWAY (CURRENT) USE OF ANTICOAGULANT 08/30/2018 CELIO LU FACC, ALI FACP CCDS Ot Z79.82 TILE TRIMMER (CURRENT) USE OF ASPIRIN 08/30/2018 CELIO LU FACC, ALI FACP CCDS Ot Z79.899 OTHER TILE TRIMMER (CURRENT) DRUG THERAPY 08/30/2018 CELIO LU FACC, ALI FACP CCDS Ot Z91.19 PATIENT'S NONCOMPLIANCE W [facility] TR 09/02/2018 CELIO LU FACC, ALI FACP CCDS Ot E03.9 HYPOTHYROIDISM, UNSPECIFIED 09/02/2018 CELIO LU FACC, ALI FACP CCDS Ot E66.9 OBESITY, UNSPECIFIED 09/02/2018 CELIO LU FACC, ALI FACP CCDS Ot E78.5 HYPERLIPIDEMIA, UNSPECIFIED 09/02/2018 CELIO LU FACC, ALI FACP CCDS Ot G47.33 OBSTRUCTIVE SLEEP APNEA (ADULT) (PEDIATR 09/02/2018 CELIO LU FACC, ALI FACP CCDS Ot I10 ESSENTIAL (PRIMARY) HYPERTENSION 09/02/2018 CELIO LU FACC, ALI FACP CCDS Ot I48.0 PAROXYSMAL ATRIAL FIBRILLATION 09/02/2018 CELIO LU FACC, ALI FACP CCDS Ot J44.9 CHRONIC OBSTRUCTIVE PULMONARY DISEASE, U 09/02/2018 CELIO LU FACC, ALI FACP CCDS Ot R00.2 PALPITATIONS 09/02/2018 CELIO LU FACC, ALI FACP CCDS Ot R06.09 OTHER FORMS OF DYSPNEA 09/02/2018 CELIO LU FACC, ALI FACP CCDS Ot R07.89 OTHER CHEST PAIN 09/02/2018 CELIO LU FACC, ALI FACP CCDS Ot Z68.41 BODY MASS INDEX (BMI) 40.0-44.9, ADULT 09/02/2018 CELIO LU FACC, ALI FACP CCDS Ot Z79.01 TILE TRIMMER (CURRENT) USE OF ANTICOAGULANT 09/02/2018 CELIO LU FACC, ALI FACP CCDS Ot Z79.82 TILE TRIMMER (CURRENT) USE OF ASPIRIN 09/02/2018 CELIO LU FACC, ALI FACP CCDS Ot Z79.899 OTHER HALFWAY (CURRENT) DRUG THERAPY 09/02/2018 CELIO LU FACC, ALI FACP CCDS Ot Z91.19 PATIENT'S NONCOMPLIANCE W [facility] TR 09/02/2018 CELIO LU FACC, ALI FACP CCDS Ot E03.9 HYPOTHYROIDISM, UNSPECIFIED 09/02/2018 CELIO LU FACC, SHIRA FACP CCDS Ot E66.9 OBESITY, UNSPECIFIED 09/02/2018 CELIO LU FACC, ALI FACP CCDS Ot E78.5 HYPERLIPIDEMIA, UNSPECIFIED 09/02/2018 CELIO LU FACC, ALI FACP CCDS Ot G47.33 OBSTRUCTIVE SLEEP APNEA (ADULT) (PEDIATR 09/02/2018 CELIO LU FACC, SHIRA FACP CCDS Ot I10 ESSENTIAL (PRIMARY) HYPERTENSION 09/02/2018 CELIO LU FACC, ALI FACP CCDS Ot I48.0 PAROXYSMAL ATRIAL FIBRILLATION 09/02/2018 CELIO LU FACC, ALI FACP CCDS Ot J44.9 CHRONIC OBSTRUCTIVE PULMONARY DISEASE, U 09/02/2018 CELIO LU FACC, ALI FACP CCDS Ot R00.2 PALPITATIONS 09/02/2018 CELIO LU FACC, ALI FACP CCDS Ot R06.09 OTHER FORMS OF DYSPNEA 09/02/2018 CELIO LU FACC, SHIRA FACP CCDS Ot R07.89 OTHER CHEST PAIN 09/02/2018 CELIO LU FACC, ALI FACP CCDS Ot Z68.41 BODY MASS INDEX (BMI) 40.0-44.9, ADULT 09/02/2018 CELIO LU FACC, SHIRA FACP CCDS Ot Z79.01 HALFWAY (CURRENT) USE OF ANTICOAGULANT 09/02/2018 CELIO LU FACC, SHIRA FACP CCDS Ot Z79.82 HALFWAY (CURRENT) USE OF ASPIRIN 09/02/2018 CELIO LU FACC, SHIRA FACP CCDS Ot Z79.899 OTHER TILE TRIMMER (CURRENT) DRUG THERAPY 09/02/2018 CELIO LU FACC, ALI FACP CCDS Ot Z91.19 PATIENT'S NONCOMPLIANCE W [facility] 01/23/2019 JAYDEN WELCHP Ot E03.9 HYPOTHYROIDISM, UNSPECIFIED 01/23/2019 REBEKAH JAYDEN CAREER AND TRANSITION TEACHER Ot E78.00 PURE HYPERCHOLESTEROLEMIA, UNSPECIFIED 01/23/2019 REBEKAH, JAYDEN CAREER AND TRANSITION TEACHER Ot F31.9 BIPOLAR DISORDER, UNSPECIFIED 01/23/2019 REBEKAH, JAYDEN CAREER AND TRANSITION TEACHER Ot F41.9 ANXIETY DISORDER, UNSPECIFIED 01/23/2019 REBEKAH JAYDEN CAREER AND TRANSITION TEACHER Ot G43.909 MIGRAINE, UNSP, NOT INTRACTABLE, WITHOUT 01/23/2019 REBEKAH, JAYDEN CAREER AND TRANSITION TEACHER Ot I10 ESSENTIAL (PRIMARY) HYPERTENSION 01/23/2019 REBEKAH JAYDEN CAREER AND TRANSITION TEACHER Ot I25.10 ATHSCL HEART DISEASE OF [place] CORONARY 01/23/2019 JAYDEN WELCHP Ot I25.2 OLD MYOCARDIAL INFARCTION 01/23/2019 JAYDEN WELCH CAREER AND TRANSITION TEACHER Ot I48.91 UNSPECIFIED ATRIAL FIBRILLATION 01/23/2019 JAYDEN WELCHP Ot J44.1 CHRONIC OBSTRUCTIVE PULMONARY DISEASE W 01/23/2019 JAYDEN WELCHP Ot M54.12 RADICULOPATHY, CERVICAL REGION 01/23/2019 JAYDEN WELCHP Ot R06.02 SHORTNESS OF BREATH 01/23/2019 JAYDEN WELCHP Ot Z77.22 CNTCT W AND EXPSR TO ENVIRON TOBACCO SMO 01/23/2019 JAYDEN WELCHP Ot Z79.01 TILE TRIMMER (CURRENT) USE OF ANTICOAGULANT 01/23/2019 JAYDEN WELCHP Ot Z79.82 HALFWAY (CURRENT) USE OF ASPIRIN 01/23/2019 JAYDEN WELCH CAREER AND TRANSITION TEACHER Ot Z82.49 FAMILY HX OF ISCHEM HEART DIS AND OTH DI 01/23/2019 JAYDEN WELCHP Ot Z90.49 ACQUIRED ABSENCE OF OTHER SPECIFIED PART 01/23/2019 JAYDEN WELCHP Ot Z90.710 ACQUIRED ABSENCE OF BOTH CERVIX AND UTER 01/23/2019 JAYDEN WELCH CAREER AND TRANSITION TEACHER Ot Z95.9 PRESENCE OF CARDIAC AND VASCULAR IMPLANT 01/23/2019 REBEKAH JAYDEN CAREER AND TRANSITION TEACHER Ot Z98.51 TUBAL LIGATION STATUS 01/25/2019 JAYDEN WELCHP Ot E03.9 HYPOTHYROIDISM, UNSPECIFIED 01/25/2019 REBEKAH JAYDEN CAREER AND TRANSITION TEACHER Ot E78.00 PURE HYPERCHOLESTEROLEMIA, UNSPECIFIED 01/25/2019 REBEKAH JAYDEN CAREER AND TRANSITION TEACHER Ot F31.9 BIPOLAR DISORDER, UNSPECIFIED 01/25/2019 REBEKAH JAYDEN CAREER AND TRANSITION TEACHER Ot F41.9 ANXIETY DISORDER, UNSPECIFIED 01/25/2019 REBEKAH JAYDEN CAREER AND TRANSITION TEACHER Ot G43.909 MIGRAINE, UNSP, NOT INTRACTABLE, WITHOUT 01/25/2019 REBEKAH JAYDEN CAREER AND TRANSITION TEACHER Ot I10 ESSENTIAL (PRIMARY) HYPERTENSION 01/25/2019 REBEKAH JAYDEN CAREER AND TRANSITION TEACHER Ot I25.10 ATHSCL HEART DISEASE OF [place] CORONARY 01/25/2019 JAYDEN WELCH CAREER AND TRANSITION TEACHER Ot I25.2 OLD MYOCARDIAL INFARCTION 01/25/2019 JAYDEN WELCH CAREER AND TRANSITION TEACHER Ot I48.91 UNSPECIFIED ATRIAL FIBRILLATION 01/25/2019 JAYDEN WELCHP Ot J44.1 CHRONIC OBSTRUCTIVE PULMONARY DISEASE W 01/25/2019 JAYDEN WELCHP Ot M54.12 RADICULOPATHY, CERVICAL REGION 01/25/2019 JAYDEN WELCHP Ot R06.02 SHORTNESS OF BREATH 01/25/2019 JAYDEN WELCHP Ot Z77.22 CNTCT W AND EXPSR TO ENVIRON TOBACCO SMO 01/25/2019 JAYDEN WELCH CAREER AND TRANSITION TEACHER Ot Z79.01 TILE TRIMMER (CURRENT) USE OF ANTICOAGULANT 01/25/2019 JAYDEN WELCH CAREER AND TRANSITION TEACHER Ot Z79.82 TILE TRIMMER (CURRENT) USE OF ASPIRIN 01/25/2019 JAYDEN WELCH CAREER AND TRANSITION TEACHER Ot Z82.49 FAMILY HX OF ISCHEM HEART DIS AND OTH DI 01/25/2019 JAYDEN WELCHP Ot Z90.49 ACQUIRED ABSENCE OF OTHER SPECIFIED PART 01/25/2019 JAYDEN WELCHP Ot Z90.710 ACQUIRED ABSENCE OF BOTH CERVIX AND UTER 01/25/2019 JAYDEN WELCH CAREER AND TRANSITION TEACHER Ot Z95.9 PRESENCE OF CARDIAC AND VASCULAR IMPLANT 01/25/2019 JAYDEN WELCH CAREER AND TRANSITION TEACHER Ot Z98.51 TUBAL LIGATION STATUS 02/01/2019 REBEKAH JAYDEN CAREER AND TRANSITION TEACHER Ot E03.9 HYPOTHYROIDISM, UNSPECIFIED 02/01/2019 REBEKAH JAYDEN CAREER AND TRANSITION TEACHER Ot E78.00 PURE HYPERCHOLESTEROLEMIA, UNSPECIFIED 02/01/2019 REBEKAH JAYDEN CAREER AND TRANSITION TEACHER Ot F31.9 BIPOLAR DISORDER, UNSPECIFIED 02/01/2019 REBEKAH JAYDEN CAREER AND TRANSITION TEACHER Ot F41.9 ANXIETY DISORDER, UNSPECIFIED 02/01/2019 REBEKAH JAYDEN CAREER AND TRANSITION TEACHER Ot G43.909 MIGRAINE, UNSP, NOT INTRACTABLE, WITHOUT 02/01/2019 REBEKAH JAYDEN CAREER AND TRANSITION TEACHER Ot I10 ESSENTIAL (PRIMARY) HYPERTENSION 02/01/2019 REBEKAH JAYDEN CAREER AND TRANSITION TEACHER Ot I25.10 ATHSCL HEART DISEASE OF [place] CORONARY 02/01/2019 REBEKAH JAYDEN CAREER AND TRANSITION TEACHER Ot I25.2 OLD MYOCARDIAL INFARCTION 02/01/2019 REBEKAH JAYDEN CAREER AND TRANSITION TEACHER Ot I48.91 UNSPECIFIED ATRIAL FIBRILLATION 02/01/2019 JAYDEN WELCH CAREER AND TRANSITION TEACHER Ot J44.1 CHRONIC OBSTRUCTIVE PULMONARY DISEASE W 02/01/2019 JAYDEN WELCH CAREER AND TRANSITION TEACHER Ot M54.12 RADICULOPATHY, CERVICAL REGION 02/01/2019 JAYDEN WELCH CAREER AND TRANSITION TEACHER Ot R06.02 SHORTNESS OF BREATH 02/01/2019 JAYDEN WELCH CAREER AND TRANSITION TEACHER Ot Z77.22 CNTCT W AND EXPSR TO ENVIRON TOBACCO SMO 02/01/2019 JAYDEN WELCHP Ot Z79.01 TILE TRIMMER (CURRENT) USE OF ANTICOAGULANT 02/01/2019 REBEKAH JAYDEN MIP Ot Z79.82 TILE TRIMMER (CURRENT) USE OF ASPIRIN 02/01/2019 JAYDEN WELCHP Ot Z82.49 FAMILY HX OF ISCHEM HEART DIS AND OTH DI 02/01/2019 JAYDEN WELCHP Ot Z90.49 ACQUIRED ABSENCE OF OTHER SPECIFIED PART 02/01/2019 JAYDEN WELCHP Ot Z90.710 ACQUIRED ABSENCE OF BOTH CERVIX AND UTER 02/01/2019 REBEKAH JAYDEN MIP Ot Z95.9 PRESENCE OF CARDIAC AND VASCULAR IMPLANT 02/01/2019 REBEKAH JAYDEN MIP Ot Z98.51 TUBAL LIGATION STATUS 06/23/2019 W E03.8 Othe r specified hypothyroidism Alena Garber 06/23/2019 W E78.2 Mixe d hyperlipidemia Alena Garber 06/23/2019 W G89.4 [place] rena pain syndrome Alena Garber 06/23/2019 W I10 Essent ial (primary) hypertension Alena Garber 06/23/2019 W I48.11 Dane gstanding persistent atrial fibrillation Alena Garber 06/28/2019 SOLO DO, LENA L Ot E03.9 HYPOTHYROIDISM, UNSPECIFIED 06/28/2019 SOLO DO, LENA L Ot E78.0 0 PURE HYPERCHOLESTEROLEMIA, UNSPECIFIED 06/28/2019 SOLO DO, LENA L Ot I10 ESSENTIAL (PRIMARY) HYPERTENSION 06/28/2019 SOLO DO, LENA L Ot I25.1 0 ATHSCL HEART DISEASE OF [place] CORONARY 06/28/2019 SOLO DO, LENA L Ot I25.2 OLD MYOCARDIAL INFARCTION 06/28/2019 SOLO DO, LENA L Ot I48.9 1 UNSPECIFIED ATRIAL FIBRILLATION 06/28/2019 SOLO DO, LENA L Ot J44.9 CHRONIC OBSTRUCTIVE PULMONARY DISEASE, U 06/28/2019 SOLO DO, LENA L Ot R07.9 CHEST PAIN, UNSPECIFIED 06/28/2019 SOLO DO, LENA L Ot R10.1 3 EPIGASTRIC PAIN 06/28/2019 SOLO DO, LENA L Ot Z77.2 2 CNTCT W AND EXPSR TO ENVIRON TOBACCO SMO 06/28/2019 SOLO DO, LENA L Ot Z79.0 1 HALFWAY (CURRENT) USE OF ANTICOAGULANT 06/28/2019 SOLO DO, LENA L Ot Z79.5 2 HALFWAY (CURRENT) USE OF SYSTEMIC STER 06/28/2019 SOLO DO, LENA L Ot Z79.8 2 HALFWAY (CURRENT) USE OF ASPIRIN 06/28/2019 SOLO DO, LENA L Ot Z95.9 PRESENCE OF CARDIAC AND VASCULAR IMPLANT 07/06/2019 SOLO DO, LENA L Ot E03.9 HYPOTHYROIDISM, UNSPECIFIED 07/06/2019 SOLO DO, LENA L Ot E78.0 0 PURE HYPERCHOLESTEROLEMIA, UNSPECIFIED 07/06/2019 SOLO DO, LENA L Ot I10 ESSENTIAL (PRIMARY) HYPERTENSION 07/06/2019 SOLO DO, LENA L Ot I25.1 0 ATHSCL HEART DISEASE OF [place] CORONARY 07/06/2019 SOLO DO, LENA L Ot I25.2 OLD MYOCARDIAL INFARCTION 07/06/2019 SOLO DO, LENA L Ot I48.9 1 UNSPECIFIED ATRIAL FIBRILLATION 07/06/2019 SOLO DO, LENA L Ot J44.9 CHRONIC OBSTRUCTIVE PULMONARY DISEASE, U 07/06/2019 SOLO DO, LENA L Ot R07.9 CHEST PAIN, UNSPECIFIED 07/06/2019 SOLO DO, LENA L Ot R10.1 3 EPIGASTRIC PAIN 07/06/2019 SOLO DO, LENA L Ot Z77.2 2 CNTCT W AND EXPSR TO ENVIRON TOBACCO SMO 07/06/2019 SOLO DO, LENA L Ot Z79.0 1 TILE TRIMMER (CURRENT) USE OF ANTICOAGULANT 07/06/2019 OSLO DO, LENA L Ot Z79.5 2 HALFWAY (CURRENT) USE OF SYSTEMIC STER 07/06/2019 SOLO DO, LEAN L Ot Z79.8 2 TILE TRIMMER (CURRENT) USE OF ASPIRIN 07/06/2019 SOLO DO, LENA L Ot Z95.9 PRESENCE OF CARDIAC AND VASCULAR IMPLANT Procedures There is no data. Results Test Result Range Complete blood count (CBC) with automate d white blood cell (WBC) differential - 05/12/16 23:44 Blood leukocytes automated count (number/volume) 6.1 10*3/uL 4.3-11.0 Blood erythrocytes automated count (number/volume) 4.35 10*6/uL 4.35-5.85 Venous blood hemoglobin measurement (mass/volume) 13.0 g/dL 11.5-16.0 Blood hematocrit (volume fraction) 40 % 35-52 Automated erythrocyte mean corpuscular volume 92 [ foz_us] 80-99 Automated erythrocyte mean corpuscular h emoglobin (mass per erythrocyte) 30 pg 25-34 Automated erythrocyte mean corpuscular h emoglobin concentration measurement (mass/volume) 33 g/dL 32-36 Automated erythrocyte distribution width ratio 13. 9 % 10.0- 14.5 Automated blood platelet count (count/volume) 164 10*3/uL [...] 10*3 1.0-4.0 Blood monocytes automated count (number/volume) 0. 4 10*3 0.0-1.0 Automated eosinophil count 0.2 10*3/uL 0 .0-0.3 Automated blood basophil count (count/volume) 0.0 10*3/uL 0.0-0.1 Comprehensive metabolic panel - 05/12/16 23:44 Serum or plasma sodium measurement (moles/volume) 140 mmol/L 135-145 Serum or plasma potassium measurement (moles/volume) 3.8 mmol/L 3.6-5.0 Serum or plasma chloride measurement (moles/volume) 107 mmol/L 98-107 Carbon dioxide 24 mmol/L 21-32 Serum or plasma anion gap determination (moles/volume) 9 mmol/L 5-14 Serum or plasma urea nitrogen measurement (mass/volume ) 9 mg/dL 7-18 Serum or plasma creatinine measurement (mass/volume) 0.78 mg/dL 0.60-1.30 Serum or plasma urea nitrogen/creatinine mass ratio 12 NRG Serum or plasma creatinine measurement w ith calculation of estimated glomerular filtration rate > NRG Serum or plasma glucose measurement (mass/volume) 130 mg/dL 70-105 Serum or plasma calcium measurement (mass/volume) 8.3 mg/dL 8.5-10.1 Serum or plasma total bilirubin measurement (mass/volu me) 0.6 mg/dL 0.1-1.0 Serum or plasma alkaline phosphatase olivn surement (enzymatic activity/volume) 76 U/L 40-136 Serum or plasma aspartate aminotransfera se measurement (enzymatic activity/volume) 19 U/L 5-34 Serum or plasma alanine aminotransferase measurement (enzymatic activity/volume) 15 U/L 0-55 Serum or plasma protein measurement (mass/volume) 6.0 g/dL 6.4-8.2 Serum or plasma albumin measurement (mass/volume) 3.7 g/dL 3.2-4.5 Serum or plasma amylase measurement (enz ymatic activity/volume) - 05/12/16 23:44 Serum or plasma amylase measurement (enzymatic activit y/volume) 32 U/L 25-125 Lipase - 05/12/16 23:44 Lipase 11 U/L 8-78 Serum or plasma ethanol measurement (mas s/volume) - 05/12/16 23:44 Serum or plasma ethanol measurement (mass/volume) < mg/dL <10 Complete urinalysis with reflex to cultu re - 05/13/16 00:40 Urine color determination YELLOW NRG Urine clarity determination CLEAR NR G Urine pH measurement by test strip 6.5 5-9 Specific gravity of urine by test strip 1.010 1.016-1.022 Urine protein assay by test strip, semi-quantitative NEGATIVE NEGATIVE Urine glucose detection by automated test strip NE GATIVE NEGATIVE Erythrocytes detection in urine sediment by light micr oscopy 2+ NEGATIVE Urine ketones detection by automated test strip NE GATIVE NEGATIVE Urine nitrite detection by test strip NEGATIVE NEGATIVE Urine total bilirubin detection by test strip NEGA TIVE NEGATIVE Urine urobilinogen measurement by automated test strip (mass/volume) NORMAL NORMAL Urine leukocyte esterase detection by dipstick 1+ NEGATIVE Automated urine sediment erythrocyte cou nt by microscopy (number/high power field) [HPF] NRG Automated urine sediment leukocyte count by microscopy (number/high power field) RARE NRG Bacteria detection in urine sediment by light microsco py NEGATIVE NRG Squamous epithelial cells detection in u rine sediment by light microscopy 2-5 NRG Crystals detection in urine sediment by light microsco py NONE NRG Casts detection in urine sediment by light microscopy NONE NRG Mucus detection in urine sediment by light microscopy SMALL NRG Complete urinalysis with reflex to culture NO NRG Urine drug screening test - 05/13/16 00: 40 Urine phencyclidine detection by screening method NEGATIVE NEGATIVE Urine benzodiazepines detection by screening method NEGATIVE NEGATIVE Urine cocaine detection NEGATIVE NEGATI VE Urine amphetamines detection by screening method N EGATIVE NEGATIVE Urine methamphetamine detection by screening method NEGATIVE NEGATIVE Urine cannabinoids detection by screening method N EGATIVE NEGATIVE Urine opiates detection by screening method NEGATI VE NEGATIVE Urine barbiturates detection NEGATIVE N EGATIVE Screening urine tricyclic antidepressants detection NEGATIVE NEGATIVE Urine methadone detection by screening method NEGA TIVE NEGATIVE Urine oxycodone detection NEGATIVE NEGA TIVE Urine propoxyphene detection NEGATIVE N EGATIVE Complete blood count (CBC) with automate d white blood cell (WBC) differential - 08/25/16 14:53 Blood leukocytes automated count (number/volume) 7.2 10*3/uL 4.3-11.0 Blood erythrocytes automated count (number/volume) 4.78 10*6/uL 4.35-5.85 Venous blood hemoglobin measurement (mass/volume) 13.8 g/dL 11.5-16.0 Blood hematocrit (volume fraction) 43 % 35-52 Automated erythrocyte mean corpuscular volume 90 [ foz_us] 80-99 Automated erythrocyte mean corpuscular h emoglobin (mass per erythrocyte) 29 pg 25-34 Automated erythrocyte mean corpuscular h emoglobin concentration measurement (mass/volume) 32 g/dL 32-36 Automated erythrocyte distribution width ratio 14. 0 % 10.0- 14.5 Automated blood platelet count (count/volume) 205 10*3/uL [...] 10*3 1.0-4.0 Blood monocytes automated count (number/volume) 0. 5 10*3 0.0-1.0 Automated eosinophil count 0.2 10*3/uL 0 .0-0.3 Automated blood basophil count (count/volume) 0.0 10*3/uL 0.0-0.1 Comprehensive metabolic panel - 08/25/16 14:53 Serum or plasma sodium measurement (moles/volume) 139 mmol/L 135-145 Serum or plasma potassium measurement (moles/volume) 4.0 mmol/L 3.6-5.0 Serum or plasma chloride measurement (moles/volume) 103 mmol/L 98-107 Carbon dioxide 29 mmol/L 21-32 Serum or plasma anion gap determination (moles/volume) 7 mmol/L 5-14 Serum or plasma urea nitrogen measurement (mass/volume ) 10 mg/dL 7-18 Serum or plasma creatinine measurement (mass/volume) 0.86 mg/dL 0.60-1.30 Serum or plasma urea nitrogen/creatinine mass ratio 12 NRG Serum or plasma creatinine measurement w ith calculation of estimated glomerular filtration rate > NRG Serum or plasma glucose measurement (mass/volume) 104 mg/dL 70-105 Serum or plasma calcium measurement (mass/volume) 9.2 mg/dL 8.5-10.1 Serum or plasma total bilirubin measurement (mass/volu me) 0.5 mg/dL 0.1-1.0 Serum or plasma alkaline phosphatase olvin surement (enzymatic activity/volume) 91 U/L 40-136 Serum or plasma aspartate aminotransfera se measurement (enzymatic activity/volume) 21 U/L 5-34 Serum or plasma alanine aminotransferase measurement (enzymatic activity/volume) 17 U/L 0-55 Serum or plasma protein measurement (mass/volume) 6.9 g/dL 6.4-8.2 Serum or plasma albumin measurement (mass/volume) 4.2 g/dL 3.2-4.5 Magnesium - 08/25/16 14:53 Magnesium 1.9 mg/dL 1.8-2.4 Lipase - 08/25/16 14:53 Lipase 20 U/L 8-78 Serum or plasma troponin i.cardiac measu rement (mass/volume) - 08/25/16 14:53 Serum or plasma troponin i.cardiac measurement (mass/v olume) < ng/mL <0.30 THYROID STIMULATING HORMONE - 08/25/16 1 4:53 THYROID STIMULATING HORMONE 3.72 u[iU]/mL 0.35-4.94 Complete urinalysis with reflex to cultu re - 08/25/16 16:00 Urine color determination YELLOW NRG Urine clarity determination CLEAR NR G Urine pH measurement by test strip 6 5-9 Specific gravity of urine by test strip 1.010 1.016-1.022 Urine protein assay by test strip, semi-quantitative NEGATIVE NEGATIVE Urine glucose detection by automated test strip NE GATIVE NEGATIVE Erythrocytes detection in urine sediment by light micr oscopy 1+ NEGATIVE Urine ketones detection by automated test strip NE GATIVE NEGATIVE Urine nitrite detection by test strip NEGATIVE NEGATIVE Urine total bilirubin detection by test strip NEGA TIVE NEGATIVE Urine urobilinogen measurement by automated test strip (mass/volume) NORMAL NORMAL Urine leukocyte esterase detection by dipstick 2+ NEGATIVE Automated urine sediment erythrocyte cou nt by microscopy (number/high power field) RARE NRG Automated urine sediment leukocyte count by microscopy (number/high power field) [HPF] NRG Bacteria detection in urine sediment by light microsco py FEW NRG Squamous epithelial cells detection in u rine sediment by light microscopy 0-2 NRG Crystals detection in urine sediment by light microsco py NONE NRG Casts detection in urine sediment by light microscopy NONE NRG Mucus detection in urine sediment by light microscopy NEGATIVE NRG Complete urinalysis with reflex to culture YES NRG Bacterial urine culture - 08/25/16 16:00 Bacterial urine culture [id number] NRG COLONY COUNT 10,000/ML - 100,000/ML NRG FTX;REPORTABLE FURTHER ID TO FOLLOW NRG URINE CULTURE RESULTS <10,000/ML NRG FREE TEXT ENTRY 2 NOT ENTEROCOCCUS NRG Complete blood count (CBC) with automate d white blood cell (WBC) differential - 11/30/16 00:10 Blood leukocytes automated count (number/volume) 7.2 10*3/uL 4.3-11.0 Blood erythrocytes automated count (number/volume) 4.37 10*6/uL 4.35-5.85 Venous blood hemoglobin measurement (mass/volume) 13.0 g/dL 11.5-16.0 Blood hematocrit (volume fraction) 40 % 35-52 Automated erythrocyte mean corpuscular volume 92 [ foz_us] 80-99 Automated erythrocyte mean corpuscular h emoglobin (mass per erythrocyte) 30 pg 25-34 Automated erythrocyte mean corpuscular h emoglobin concentration measurement (mass/volume) 32 g/dL 32-36 Automated erythrocyte distribution width ratio 13. 9 % 10.0- 14.5 Automated blood platelet count (count/volume) 165 10*3/uL [...] 10*3 1.0-4.0 Blood monocytes automated count (number/volume) 0. 5 10*3 0.0-1.0 Automated eosinophil count 0.2 10*3/uL 0 .0-0.3 Automated blood basophil count (count/volume) 0.0 10*3/uL 0.0-0.1 Comprehensive metabolic panel - 11/30/16 00:10 Serum or plasma sodium measurement (moles/volume) 142 mmol/L 135-145 Serum or plasma potassium measurement (moles/volume) 3.6 mmol/L 3.6-5.0 Serum or plasma chloride measurement (moles/volume) 105 mmol/L 98-107 Carbon dioxide 27 mmol/L 21-32 Serum or plasma anion gap determination (moles/volume) 10 mmol/L 5-14 Serum or plasma urea nitrogen measurement (mass/volume ) 9 mg/dL 7-18 Serum or plasma creatinine measurement (mass/volume) 0.83 mg/dL 0.60-1.30 Serum or plasma urea nitrogen/creatinine mass ratio 11 NRG Serum or plasma creatinine measurement w ith calculation of estimated glomerular filtration rate > NRG Serum or plasma glucose measurement (mass/volume) 118 mg/dL 70-105 Serum or plasma calcium measurement (mass/volume) 8.7 mg/dL 8.5-10.1 Serum or plasma total bilirubin measurement (mass/volu me) 0.3 mg/dL 0.1-1.0 Serum or plasma alkaline phosphatase olvin surement (enzymatic activity/volume) 107 U/L 40-136 Serum or plasma aspartate aminotransfera se measurement (enzymatic activity/volume) 18 U/L 5-34 Serum or plasma alanine aminotransferase measurement (enzymatic activity/volume) 18 U/L 0-55 Serum or plasma protein measurement (mass/volume) 6.1 g/dL 6.4-8.2 Serum or plasma albumin measurement (mass/volume) 3.6 g/dL 3.2-4.5 Magnesium - 11/30/16 00:10 Magnesium 1.8 mg/dL 1.8-2.4 Serum or plasma troponin i.cardiac measu rement (mass/volume) - 11/30/16 00:10 Serum or plasma troponin i.cardiac measurement (mass/v olume) < ng/mL <0.30 Lipase - 11/30/16 00:10 Lipase 22 U/L 8-78 Complete urinalysis with reflex to cultu re - 11/30/16 01:55 Urine color determination YELLOW NRG Urine clarity determination CLEAR NR G Urine pH measurement by test strip 6 5-9 Specific gravity of urine by test strip 1.015 1.016-1.022 Urine protein assay by test strip, semi-quantitative NEGATIVE NEGATIVE Urine glucose detection by automated test strip NE GATIVE NEGATIVE Erythrocytes detection in urine sediment by light micr oscopy 1+ NEGATIVE Urine ketones detection by automated test strip NE GATIVE NEGATIVE Urine nitrite detection by test strip NEGATIVE NEGATIVE Urine total bilirubin detection by test strip NEGA TIVE NEGATIVE Urine urobilinogen measurement by automated test strip (mass/volume) NORMAL NORMAL Urine leukocyte esterase detection by dipstick 2+ NEGATIVE Automated urine sediment erythrocyte cou nt by microscopy (number/high power field) RARE NRG Automated urine sediment leukocyte count by microscopy (number/high power field) [HPF] NRG Bacteria detection in urine sediment by light microsco py TRACE NRG Squamous epithelial cells detection in u rine sediment by light microscopy 0-2 NRG Crystals detection in urine sediment by light microsco py NONE NRG Casts detection in urine sediment by light microscopy NONE NRG Mucus detection in urine sediment by light microscopy NEGATIVE NRG Complete urinalysis with reflex to culture NO NRG Complete blood count (CBC) with automate d white blood cell (WBC) differential - 01/12/17 15:45 Blood leukocytes automated count (number/volume) 8.5 10*3/uL 4.3-11.0 Blood erythrocytes automated count (number/volume) 4.36 10*6/uL 4.35-5.85 Venous blood hemoglobin measurement (mass/volume) 13.1 g/dL 11.5-16.0 Blood hematocrit (volume fraction) 40 % 35-52 Automated erythrocyte mean corpuscular volume 91 [ foz_us] 80-99 Automated erythrocyte mean corpuscular h emoglobin (mass per erythrocyte) 30 pg 25-34 Automated erythrocyte mean corpuscular h emoglobin concentration measurement (mass/volume) 33 g/dL 32-36 Automated erythrocyte distribution width ratio 13. 7 % 10.0- 14.5 Automated blood platelet count (count/volume) 212 10*3/uL [...] 10*3 1.0-4.0 Blood monocytes automated count (number/volume) 0. 7 10*3 0.0-1.0 Automated eosinophil count 0.3 10*3/uL 0 .0-0.3 Automated blood basophil count (count/volume) 0.0 10*3/uL 0.0-0.1 Fibrin D-dimer FEU measurement in platel et poor plasma (mass/volume) - 01/12/17 15:45 Fibrin D-dimer FEU measurement in platelet [...] 5-14 Serum or plasma urea nitrogen measurement (mass/volume ) 12 mg/dL 7-18 Serum or plasma creatinine measurement (mass/volume) 0.89 mg/dL 0.60-1.30 Serum or plasma urea nitrogen/creatinine mass ratio 13 NRG Serum or plasma creatinine measurement w ith calculation of estimated glomerular filtration rate > NRG Serum or plasma glucose measurement (mass/volume) 96 mg/dL 70-105 Serum or plasma calcium measurement (mass/volume) 8.7 mg/dL 8.5-10.1 Serum or plasma total bilirubin measurement (mass/volu me) 0.4 mg/dL 0.1-1.0 Serum or plasma alkaline phosphatase olvin surement (enzymatic activity/volume) 102 U/L 40-136 Serum or plasma aspartate aminotransfera se measurement (enzymatic activity/volume) 18 U/L 5-34 Serum or plasma alanine aminotransferase measurement (enzymatic activity/volume) 16 U/L 0-55 Serum or plasma protein measurement (mass/volume) 7.0 g/dL 6.4-8.2 Serum or plasma albumin measurement (mass/volume) 4.0 g/dL 3.2-4.5 Serum or plasma troponin i.cardiac measu rement (mass/volume) - 01/12/17 15:45 Serum or plasma troponin i.cardiac measurement (mass/v olume) < ng/mL <0.30 Serum or plasma lithium measurement (mol es/volume) - 01/12/17 15:45 BNP level 189.9 pg/mL <100.0 Complete blood count (CBC) with automate d white blood cell (WBC) differential - 02/15/18 11:00 Blood leukocytes automated count (number/volume) 6.9 10*3/uL 4.3-11.0 Blood erythrocytes automated count (number/volume) 4.16 10*6/uL 4.35-5.85 Venous blood hemoglobin measurement (mass/volume) 12.4 g/dL 11.5-16.0 Blood hematocrit (volume fraction) 39 % 35-52 Automated erythrocyte mean corpuscular volume 93 [ foz_us] 80-99 Automated erythrocyte mean corpuscular h emoglobin (mass per erythrocyte) 30 pg 25-34 Automated erythrocyte mean corpuscular h emoglobin concentration measurement (mass/volume) 32 g/dL 32-36 Automated erythrocyte distribution width ratio 13. 6 % 10.0- 14.5 Automated blood platelet count (count/volume) 170 10*3/uL [...] 10*3 1.0-4.0 Blood monocytes automated count (number/volume) 0. 5 10*3 0.0-1.0 Automated eosinophil count 0.2 10*3/uL 0 .0-0.3 Automated blood basophil count (count/volume) 0.0 10*3/uL 0.0-0.1 PT panel in platelet poor plasma by coag ulation assay - 02/15/18 11:00 Prothrombin time (PT) in platelet poor plasma by coagu lation assay 13.7 s 12.2-14.7 INR in platelet poor plasma or blood by coagulation as say 1.1 0.8-1.4 Activated partial thromboplastin time (a PTT) in platelet poor plasma bycoagulation assay - 02/15/18 11:00 Activated partial thromboplastin time (a PTT) in platelet poor plasma bycoagulation assay 30 s 24-35 Comprehensive metabolic panel - 02/15/18 11:00 Serum or plasma sodium measurement (moles/volume) 141 mmol/L 135-145 Serum or plasma potassium measurement (moles/volume) 3.6 mmol/L 3.6-5.0 Serum or plasma chloride measurement (moles/volume) 104 mmol/L 98-107 Carbon dioxide 28 mmol/L 21-32 Serum or plasma anion gap determination (moles/volume) 9 mmol/L 5-14 Serum or plasma urea nitrogen measurement (mass/volume ) 12 mg/dL 7-18 Serum or plasma creatinine measurement (mass/volume) 0.77 mg/dL 0.60-1.30 Serum or plasma urea nitrogen/creatinine mass ratio 16 NRG Serum or plasma creatinine measurement w ith calculation of estimated glomerular filtration rate > NRG Serum or plasma glucose measurement (mass/volume) 113 mg/dL 70-105 Serum or plasma calcium measurement (mass/volume) 9.0 mg/dL 8.5-10.1 Serum or plasma total bilirubin measurement (mass/volu me) 0.5 mg/dL 0.1-1.0 Serum or plasma alkaline phosphatase olvin surement (enzymatic activity/volume) 86 U/L 40-136 Serum or plasma aspartate aminotransfera se measurement (enzymatic activity/volume) 19 U/L 5-34 Serum or plasma alanine aminotransferase measurement (enzymatic activity/volume) 16 U/L 0-55 Serum or plasma protein measurement (mass/volume) 6.5 g/dL 6.4-8.2 Serum or plasma albumin measurement (mass/volume) 3.9 g/dL 3.2-4.5 CALCIUM CORRECTED 9.1 mg/dL 8.5-10.1 Magnesium - 02/15/18 11:00 Magnesium 2.2 mg/dL 1.8-2.4 Serum or plasma troponin i.cardiac measu rement (mass/volume) - 02/15/18 11:00 Serum or plasma troponin i.cardiac measurement (mass/v olume) < ng/mL <0.30 Myoglobin, serum - 02/15/18 11:00 Myoglobin, serum 42.9 ng/mL 10.0-92.0 Complete blood count (CBC) with automate d white blood cell (WBC) differential - 02/17/18 12:05 Blood leukocytes automated count (number/volume) 6.1 10*3/uL 4.3-11.0 Blood erythrocytes automated count (number/volume) 4.27 10*6/uL 4.35-5.85 Venous blood hemoglobin measurement (mass/volume) 12.7 g/dL 11.5-16.0 Blood hematocrit (volume fraction) 39 % 35-52 Automated erythrocyte mean corpuscular volume 92 [ foz_us] 80-99 Automated erythrocyte mean corpuscular h emoglobin (mass per erythrocyte) 30 pg 25-34 Automated erythrocyte mean corpuscular h emoglobin concentration measurement (mass/volume) 32 g/dL 32-36 Automated erythrocyte distribution width ratio 13. 9 % 10.0- 14.5 Automated blood platelet count (count/volume) 176 10*3/uL [...] 10*3 1.0-4.0 Blood monocytes automated count (number/volume) 0. 5 10*3 0.0-1.0 Automated eosinophil count 0.2 10*3/uL 0 .0-0.3 Automated blood basophil count (count/volume) 0.0 10*3/uL 0.0-0.1 Complete blood count (CBC) with automate d white blood cell (WBC) differential - 02/20/18 13:20 Blood leukocytes automated count (number/volume) 5.2 10*3/uL 4.3-11.0 Blood erythrocytes automated count (number/volume) 4.29 10*6/uL 4.35-5.85 Venous blood hemoglobin measurement (mass/volume) 12.9 g/dL 11.5-16.0 Blood hematocrit (volume fraction) 40 % 35-52 Automated erythrocyte mean corpuscular volume 92 [ foz_us] 80-99 Automated erythrocyte mean corpuscular h emoglobin (mass per erythrocyte) 30 pg 25-34 Automated erythrocyte mean corpuscular h emoglobin concentration measurement (mass/volume) 33 g/dL 32-36 Automated erythrocyte distribution width ratio 14. 0 % 10.0- 14.5 Automated blood platelet count (count/volume) 181 10*3/uL [...] 10*3 1.0-4.0 Blood monocytes automated count (number/volume) 0. 5 10*3 0.0-1.0 Automated eosinophil count 0.2 10*3/uL 0 .0-0.3 Automated blood basophil count (count/volume) 0.0 10*3/uL 0.0-0.1 Comprehensive metabolic panel - 02/20/18 13:20 Serum or plasma sodium measurement (moles/volume) 139 mmol/L 135-145 Serum or plasma potassium measurement (moles/volume) 4.1 mmol/L 3.6-5.0 Serum or plasma chloride measurement (moles/volume) 104 mmol/L 98-107 Carbon dioxide 25 mmol/L 21-32 Serum or plasma anion gap determination (moles/volume) 10 mmol/L 5-14 Serum or plasma urea nitrogen measurement (mass/volume ) 15 mg/dL 7-18 Serum or plasma creatinine measurement (mass/volume) 0.98 mg/dL 0.60-1.30 Serum or plasma urea nitrogen/creatinine mass ratio 15 NRG Serum or plasma creatinine measurement w ith calculation of estimated glomerular filtration rate 57 NRG Serum or plasma glucose measurement (mass/volume) 85 mg/dL 70-105 Serum or plasma calcium measurement (mass/volume) 9.5 mg/dL 8.5-10.1 Serum or plasma total bilirubin measurement (mass/volu me) 0.4 mg/dL 0.1-1.0 Serum or plasma alkaline phosphatase olvin surement (enzymatic activity/volume) 78 U/L 40-136 Serum or plasma aspartate aminotransfera se measurement (enzymatic activity/volume) 33 U/L 5-34 Serum or plasma alanine aminotransferase measurement (enzymatic activity/volume) 26 U/L 0-55 Serum or plasma protein measurement (mass/volume) 7.0 g/dL 6.4-8.2 Serum or plasma albumin measurement (mass/volume) 4.2 g/dL 3.2-4.5 CALCIUM CORRECTED 9.3 mg/dL 8.5-10.1 Magnesium - 02/20/18 13:20 Magnesium 2.2 mg/dL 1.8-2.4 PT panel in platelet poor plasma by coag ulation assay - 02/20/18 13:20 Prothrombin time (PT) in platelet poor plasma by coagu lation assay 14.1 s 12.2-14.7 INR in platelet poor plasma or blood by coagulation as say 1.1 0.8-1.4 Activated partial thromboplastin time (a PTT) in platelet poor plasma bycoagulation assay - 02/20/18 13:20 Activated partial thromboplastin time (a PTT) in platelet poor plasma bycoagulation assay 29 s 24-35 Serum or plasma troponin i.cardiac measu rement (mass/volume) - 02/20/18 13:20 Serum or plasma troponin i.cardiac measurement (mass/v olume) < ng/mL <0.30 Myoglobin, serum - 02/20/18 13:20 Myoglobin, serum 63.7 ng/mL 10.0-92.0 Serum or plasma lithium measurement (mol es/volume) - 02/20/18 13:20 BNP level 140.0 pg/mL <100.0 Serum or plasma troponin i.cardiac measu rement (mass/volume) - 02/20/18 16:08 Serum or plasma troponin i.cardiac measurement (mass/v olume) < ng/mL <0.30 Blood lactic acid measurement (moles/vol ume) - 02/20/18 18:40 Blood lactic acid measurement (moles/volume) 0.61 mmol/L 0.50-2.00 Bacterial blood culture - 02/20/18 18:40 Bacterial blood culture NG NRG Serum or plasma troponin i.cardiac measu rement (mass/volume) - 02/20/18 23:04 Serum or plasma troponin i.cardiac measurement (mass/v olume) < ng/mL <0.30 Lipid 1996 panel - 02/21/18 03:00 Serum or plasma triglyceride measurement (mass/volume) 75 mg/dL <150 Serum or plasma cholesterol measurement (mass/volume) 115 mg/dL < 200 Serum or plasma cholesterol in HDL measurement (mass/v olume) 36 mg/dL 40-60 Cholesterol in LDL [mass/volume] in serum or plasma by direct assay 68 mg/dL 1-129 Serum or plasma cholesterol in VLDL measurement (mass/ volume) 15 mg/dL 5-40 Comprehensive metabolic panel - 02/21/18 03:00 Serum or plasma sodium measurement (moles/volume) 139 mmol/L 135-145 Serum or plasma potassium measurement (moles/volume) 4.4 mmol/L 3.6-5.0 Serum or plasma chloride measurement (moles/volume) 105 mmol/L 98-107 Carbon dioxide 22 mmol/L 21-32 Serum or plasma anion gap determination (moles/volume) 12 mmol/L 5-14 Serum or plasma urea nitrogen measurement (mass/volume ) 11 mg/dL 7-18 Serum or plasma creatinine measurement (mass/volume) 0.87 mg/dL 0.60-1.30 Serum or plasma urea nitrogen/creatinine mass ratio 13 NRG Serum or plasma creatinine measurement w ith calculation of estimated glomerular filtration rate > NRG Serum or plasma glucose measurement (mass/volume) 104 mg/dL 70-105 Serum or plasma calcium measurement (mass/volume) 9.1 mg/dL 8.5-10.1 Serum or plasma total bilirubin measurement (mass/volu me) 0.4 mg/dL 0.1-1.0 Serum or plasma alkaline phosphatase olvin surement (enzymatic activity/volume) 76 U/L 40-136 Serum or plasma aspartate aminotransfera se measurement (enzymatic activity/volume) 29 U/L 5-34 Serum or plasma alanine aminotransferase measurement (enzymatic activity/volume) 25 U/L 0-55 Serum or plasma protein measurement (mass/volume) 5.9 g/dL 6.4-8.2 Serum or plasma albumin measurement (mass/volume) 3.8 g/dL 3.2-4.5 CALCIUM CORRECTED 9.3 mg/dL 8.5-10.1 Arterial blood gas measurement - 8 08:00 Blood pCO2 43 mm[Hg] 35-45 Blood pO2 66 mm[Hg] 79-93 Arterial blood bicarbonate measurement (moles/volume) 26 mmol/L 23-27 Arterial blood base excess by calculation 1.8 mmol /L -2.5-2.5 Arterial blood oxygen saturation measurement 95 % 94-100 * Inhaled oxygen flow rate ROOM AIR NRG Arterial blood pH measurement with patient temperature correction 7.40 7.37-7.43 Arterial blood carbon dioxide, total measurement (mole s/volume) 27.5 mmol/L 21.0-31.0 Body site RT RAD NRG Assessment of wrist artery patency prior to arterial p uncture YES-POS NRG Setting of ventilation mode NO NR G Measurement of body temperature 98.1 NRG Complete blood count (CBC) with automate d white blood cell (WBC) differential - 02/23/18 15:40 Blood leukocytes automated count (number/volume) 6.0 10*3/uL 4.3-11.0 Blood erythrocytes automated count (number/volume) 4.43 10*6/uL 4.35-5.85 Venous blood hemoglobin measurement (mass/volume) 13.2 g/dL 11.5-16.0 Blood hematocrit (volume fraction) 41 % 35-52 Automated erythrocyte mean corpuscular volume 93 [ foz_us] 80-99 Automated erythrocyte mean corpuscular h emoglobin (mass per erythrocyte) 30 pg 25-34 Automated erythrocyte mean corpuscular h emoglobin concentration measurement (mass/volume) 32 g/dL 32-36 Automated erythrocyte distribution width ratio 14. 3 % 10.0- 14.5 Automated blood platelet count (count/volume) 209 10*3/uL [...] 10*3 1.0-4.0 Blood monocytes automated count (number/volume) 0. 6 10*3 0.0-1.0 Automated eosinophil count 0.1 10*3/uL 0 .0-0.3 Automated blood basophil count (count/volume) 0.0 10*3/uL 0.0-0.1 Blood lactic acid measurement (moles/vol ume) - 02/23/18 15:40 Blood lactic acid measurement (moles/volume) 1.46 mmol/L 0.50-2.00 PT panel in platelet poor plasma by coag ulation assay - 02/23/18 15:40 Prothrombin time (PT) in platelet poor plasma by coagu lation assay 14.7 s 12.2-14.7 INR in platelet poor plasma or blood by coagulation as say 1.2 0.8-1.4 Activated partial thromboplastin time (a PTT) in platelet poor plasma bycoagulation assay - 02/23/18 15:40 Activated partial thromboplastin time (a PTT) in platelet poor plasma bycoagulation assay 31 s 24-35 Comprehensive metabolic panel - 02/23/18 15:40 Serum or plasma sodium measurement (moles/volume) 139 mmol/L 135-145 Serum or plasma potassium measurement (moles/volume) 4.0 mmol/L 3.6-5.0 Serum or plasma chloride measurement (moles/volume) 104 mmol/L 98-107 Carbon dioxide 26 mmol/L 21-32 Serum or plasma anion gap determination (moles/volume) 9 mmol/L 5-14 Serum or plasma urea nitrogen measurement (mass/volume ) 8 mg/dL 7-18 Serum or plasma creatinine measurement (mass/volume) 0.94 mg/dL 0.60-1.30 Serum or plasma urea nitrogen/creatinine mass ratio 9 NRG Serum or plasma creatinine measurement w ith calculation of estimated glomerular filtration rate 60 NRG Serum or plasma glucose measurement (mass/volume) 109 mg/dL 70-105 Serum or plasma calcium measurement (mass/volume) 9.4 mg/dL 8.5-10.1 Serum or plasma total bilirubin measurement (mass/volu me) 0.4 mg/dL 0.1-1.0 Serum or plasma alkaline phosphatase olvin surement (enzymatic activity/volume) 80 U/L 40-136 Serum or plasma aspartate aminotransfera se measurement (enzymatic activity/volume) 23 U/L 5-34 Serum or plasma alanine aminotransferase measurement (enzymatic activity/volume) 25 U/L 0-55 Serum or plasma protein measurement (mass/volume) 7.1 g/dL 6.4-8.2 Serum or plasma albumin measurement (mass/volume) 4.2 g/dL 3.2-4.5 CALCIUM CORRECTED 9.2 mg/dL 8.5-10.1 Bacterial blood culture - 02/23/18 15:40 Bacterial blood culture NG NRG Bacterial blood culture - 02/23/18 15:57 Bacterial blood culture NG NRG Complete blood count (CBC) with automate d white blood cell (WBC) differential - 05/25/18 18:25 Blood leukocytes automated count (number/volume) 4.1 10*3/uL 4.3-11.0 Blood erythrocytes automated count (number/volume) 4.79 10*6/uL 4.35-5.85 Venous blood hemoglobin measurement (mass/volume) 14.1 g/dL 11.5-16.0 Blood hematocrit (volume fraction) 43 % 35-52 Automated erythrocyte mean corpuscular volume 90 [ foz_us] 80-99 Automated erythrocyte mean corpuscular h emoglobin (mass per erythrocyte) 29 pg 25-34 Automated erythrocyte mean corpuscular h emoglobin concentration measurement (mass/volume) 33 g/dL 32-36 Automated erythrocyte distribution width ratio 14. 2 % 10.0- 14.5 Automated blood platelet count (count/volume) 203 10*3/uL [...] 10*3 1.0-4.0 Blood monocytes automated count (number/volume) 0. 5 10*3 0.0-1.0 Automated eosinophil count 0.3 10*3/uL 0 .0-0.3 Automated blood basophil count (count/volume) 0.0 10*3/uL 0.0-0.1 Whole blood basic metabolic panel - 04/28 18:25 Serum or plasma sodium measurement (moles/volume) 143 mmol/L 135-145 Serum or plasma potassium measurement (moles/volume) 3.6 mmol/L 3.6-5.0 Serum or plasma chloride measurement (moles/volume) 102 mmol/L 98-107 Carbon dioxide 30 mmol/L 21-32 Serum or plasma anion gap determination (moles/volume) 11 mmol/L 5-14 Serum or plasma urea nitrogen measurement (mass/volume ) 9 mg/dL 7-18 Serum or plasma creatinine measurement (mass/volume) 0.92 mg/dL 0.60-1.30 Serum or plasma urea nitrogen/creatinine mass ratio 10 NRG Serum or plasma creatinine measurement w ith calculation of estimated glomerular filtration rate > NRG Serum or plasma glucose measurement (mass/volume) 98 mg/dL 70-105 Serum or plasma calcium measurement (mass/volume) 9.5 mg/dL 8.5-10.1 Serum or plasma lithium measurement (mol es/volume) - 05/25/18 18:25 BNP level 154.4 pg/mL <100.0 Complete blood count (CBC) with automate d white blood cell (WBC) differential - 05/31/18 16:50 Blood leukocytes automated count (number/volume) 7.3 10*3/uL 4.3-11.0 Blood erythrocytes automated count (number/volume) 4.55 10*6/uL 4.35-5.85 Venous blood hemoglobin measurement (mass/volume) 13.4 g/dL 11.5-16.0 Blood hematocrit (volume fraction) 42 % 35-52 Automated erythrocyte mean corpuscular volume 91 [ foz_us] 80-99 Automated erythrocyte mean corpuscular h emoglobin (mass per erythrocyte) 30 pg 25-34 Automated erythrocyte mean corpuscular h emoglobin concentration measurement (mass/volume) 32 g/dL 32-36 Automated erythrocyte distribution width ratio 14. 5 % 10.0- 14.5 Automated blood platelet count (count/volume) 201 10*3/uL [...] 10*3 1.0-4.0 Blood monocytes automated count (number/volume) 0. 6 10*3 0.0-1.0 Automated eosinophil count 0.2 10*3/uL 0 .0-0.3 Automated blood basophil count (count/volume) 0.0 10*3/uL 0.0-0.1 Comprehensive metabolic panel - 05/31/18 16:50 Serum or plasma sodium measurement (moles/volume) 143 mmol/L 135-145 Serum or plasma potassium measurement (moles/volume) 3.7 mmol/L 3.6-5.0 Serum or plasma chloride measurement (moles/volume) 104 mmol/L 98-107 Carbon dioxide 28 mmol/L 21-32 Serum or plasma anion gap determination (moles/volume) 11 mmol/L 5-14 Serum or plasma urea nitrogen measurement (mass/volume ) 13 mg/dL 7-18 Serum or plasma creatinine measurement (mass/volume) 0.82 mg/dL 0.60-1.30 Serum or plasma urea nitrogen/creatinine mass ratio 16 NRG Serum or plasma creatinine measurement w ith calculation of estimated glomerular filtration rate > NRG Serum or plasma glucose measurement (mass/volume) 100 mg/dL 70-105 Serum or plasma calcium measurement (mass/volume) 8.9 mg/dL 8.5-10.1 Serum or plasma total bilirubin measurement (mass/volu me) 0.4 mg/dL 0.1-1.0 Serum or plasma alkaline phosphatase olvin surement (enzymatic activity/volume) 93 U/L 40-136 Serum or plasma aspartate aminotransfera se measurement (enzymatic activity/volume) 19 U/L 5-34 Serum or plasma alanine aminotransferase measurement (enzymatic activity/volume) 18 U/L 0-55 Serum or plasma protein measurement (mass/volume) 6.4 g/dL 6.4-8.2 Serum or plasma albumin measurement (mass/volume) 3.9 g/dL 3.2-4.5 CALCIUM CORRECTED 9.0 mg/dL 8.5-10.1 Automated blood complete blood count ( mogram) panel - 08/30/18 10:25 Blood leukocytes automated count (number/volume) 5.8 10*3/uL 4.3-11.0 Blood erythrocytes automated count (number/volume) 4.61 10*6/uL 4.35-5.85 Venous blood hemoglobin measurement (mass/volume) 13.5 g/dL 11.5-16.0 Blood hematocrit (volume fraction) 42 % 35-52 Automated erythrocyte mean corpuscular volume 91 [ foz_us] 80-99 Automated erythrocyte mean corpuscular h emoglobin (mass per erythrocyte) 29 pg 25-34 Automated erythrocyte mean corpuscular h emoglobin concentration measurement (mass/volume) 32 g/dL 32-36 Automated erythrocyte distribution width ratio 14. 5 % 10.0- 14.5 Automated blood platelet count (count/volume) 194 10*3/uL 130-400 Automated blood platelet mean volume measurement 9.2 [foz_us] 7.4-10.4 PT panel in platelet poor plasma by coag ulation assay - 08/30/18 10:25 Prothrombin time (PT) in platelet poor plasma by coagu lation assay 13.5 s 12.2-14.7 INR in platelet poor plasma or blood by coagulation as say 1.0 0.8-1.4 Activated partial thromboplastin time (a PTT) in platelet poor plasma bycoagulation assay - 08/30/18 10:25 Activated partial thromboplastin time (a PTT) in platelet poor plasma bycoagulation assay 31 s 24-35 Comprehensive metabolic panel - 08/30/18 10:25 Serum or plasma sodium measurement (moles/volume) 141 mmol/L 135-145 Serum or plasma potassium measurement (moles/volume) 3.6 mmol/L 3.6-5.0 Serum or plasma chloride measurement (moles/volume) 105 mmol/L 98-107 Carbon dioxide 29 mmol/L 21-32 Serum or plasma anion gap determination (moles/volume) 7 mmol/L 5-14 Serum or plasma urea nitrogen measurement (mass/volume ) 12 mg/dL 7-18 Serum or plasma creatinine measurement (mass/volume) 0.85 mg/dL 0.60-1.30 Serum or plasma urea nitrogen/creatinine mass ratio 14 NRG Serum or plasma creatinine measurement w ith calculation of estimated glomerular filtration rate > NRG Serum or plasma glucose measurement (mass/volume) 104 mg/dL 70-105 Serum or plasma calcium measurement (mass/volume) 9.1 mg/dL 8.5-10.1 Serum or plasma total bilirubin measurement (mass/volu me) 0.5 mg/dL 0.1-1.0 Serum or plasma alkaline phosphatase olvin surement (enzymatic activity/volume) 88 U/L 40-136 Serum or plasma aspartate aminotransfera se measurement (enzymatic activity/volume) 20 U/L 5-34 Serum or plasma alanine aminotransferase measurement (enzymatic activity/volume) 19 U/L 0-55 Serum or plasma protein measurement (mass/volume) 6.7 g/dL 6.4-8.2 Serum or plasma albumin measurement (mass/volume) 4.0 g/dL 3.2-4.5 CALCIUM CORRECTED 9.1 mg/dL 8.5-10.1 Lipid 1996 panel - 08/30/18 10:25 Serum or plasma triglyceride measurement (mass/volume) 98 mg/dL <150 Serum or plasma cholesterol measurement (mass/volume) 174 mg/dL < 200 Serum or plasma cholesterol in HDL measurement (mass/v olume) 47 mg/dL 40-60 Cholesterol in LDL [mass/volume] in serum or plasma by direct assay 117 mg/dL 1-129 Serum or plasma cholesterol in VLDL measurement (mass/ volume) 20 mg/dL 5-40 Methicillin resistant Staphylococcus aur eus (MRSA) screening culture - 08/30/18 10:25 Methicillin resistant Staphylococcus aureus (MRSA) scr eening culture NEG NRG Complete blood count (CBC) with automate d white blood cell (WBC) differential - 01/23/19 15:00 Blood leukocytes automated count (number/volume) 8.8 10*3/uL 4.3-11.0 Blood erythrocytes automated count (number/volume) 4.94 10*6/uL 4.35-5.85 Venous blood hemoglobin measurement (mass/volume) 14.6 g/dL 11.5-16.0 Blood hematocrit (volume fraction) 44 % 35-52 Automated erythrocyte mean corpuscular volume 90 [ foz_us] 80-99 Automated erythrocyte mean corpuscular h emoglobin (mass per erythrocyte) 30 pg 25-34 Automated erythrocyte mean corpuscular h emoglobin concentration measurement (mass/volume) 33 g/dL 32-36 Automated erythrocyte distribution width ratio 14. 8 % 10.0- 14.5 Automated blood platelet count (count/volume) 231 10*3/uL 130-400 Automated blood platelet mean volume measurement 9.6 [foz_us] 7.4-10.4 Automated blood neutrophils/100 leukocytes 65 % 42-75 Automated blood lymphocytes/100 leukocytes 23 % 12-44 Blood monocytes/100 leukocytes 9 % 0-12 Automated blood eosinophils/100 leukocytes 3 % 0-10 Automated blood basophils/100 leukocytes 0 % 0-10 Blood neutrophils automated count (number/volume) 5.7 10*3 1.8-7.8 Blood lymphocytes automated count (number/volume) 2.0 10*3 1.0-4.0 Blood monocytes automated count (number/volume) 0. 8 10*3 0.0-1.0 Automated eosinophil count 0.3 10*3/uL 0 .0-0.3 Automated blood basophil count (count/volume) 0.0 10*3/uL 0.0-0.1 PT panel in platelet poor plasma by coag ulation assay - 01/23/19 15:00 Prothrombin time (PT) in platelet poor plasma by coagu lation assay 15.1 s 12.2-14.7 INR in platelet poor plasma or blood by coagulation as say 1.1 0.8-1.4 Activated partial thromboplastin time (a PTT) in platelet poor plasma bycoagulation assay - 01/23/19 15:00 Activated partial thromboplastin time (a PTT) in platelet poor plasma bycoagulation assay 31 s 24-35 Fibrin D-dimer FEU measurement in platel et poor plasma (mass/volume) - 01/23/19 15:00 Fibrin D-dimer FEU measurement in platelet poor plasma (mass/volume) 0.41 ug/mL 0.00-0.49 Comprehensive metabolic panel - 01/23/19 15:00 Serum or plasma sodium measurement (moles/volume) 144 mmol/L 135-145 Serum or plasma potassium measurement (moles/volume) 3.6 mmol/L 3.6-5.0 Serum or plasma chloride measurement (moles/volume) 103 mmol/L 98-107 Carbon dioxide 31 mmol/L 21-32 Serum or plasma anion gap determination (moles/volume) 10 mmol/L 5-14 Serum or plasma urea nitrogen measurement (mass/volume ) 13 mg/dL 7-18 Serum or plasma creatinine measurement (mass/volume) 0.93 mg/dL 0.60-1.30 Serum or plasma urea nitrogen/creatinine mass ratio 14 NRG Serum or plasma creatinine measurement w ith calculation of estimated glomerular filtration rate > NRG Serum or plasma glucose measurement (mass/volume) 112 mg/dL 70-105 Serum or plasma calcium measurement (mass/volume) 9.3 mg/dL 8.5-10.1 Serum or plasma total bilirubin measurement (mass/volu me) 0.4 mg/dL 0.1-1.0 Serum or plasma alkaline phosphatase olvin surement (enzymatic activity/volume) 96 U/L 40-136 Serum or plasma aspartate aminotransfera se measurement (enzymatic activity/volume) 21 U/L 5-34 Serum or plasma alanine aminotransferase measurement (enzymatic activity/volume) 22 U/L 0-55 Serum or plasma protein measurement (mass/volume) 7.9 g/dL 6.4-8.2 Serum or plasma albumin measurement (mass/volume) 4.1 g/dL 3.2-4.5 CALCIUM CORRECTED 9.2 mg/dL 8.5-10.1 Magnesium - 01/23/19 15:00 Magnesium 1.9 mg/dL 1.6-2.4 Serum or plasma troponin i.cardiac measu rement (mass/volume) - 01/23/19 15:00 Serum or plasma troponin i.cardiac measurement (mass/v olume) < ng/mL <0.028 Myoglobin, serum - 01/23/19 15:00 Myoglobin, serum 44.1 ng/mL 10.0-92.0 Serum or plasma lithium measurement (mol es/volume) - 01/23/19 15:00 BNP PT 69.4 pg/mL <100.0 Complete blood count (CBC) with automate d white blood cell (WBC) differential - 06/28/19 09:15 Blood leukocytes automated count (number/volume) 5.9 10*3/uL 4.3-11.0 Blood erythrocytes automated count (number/volume) 4.51 10*6/uL 4.35-5.85 Venous blood hemoglobin measurement (mass/volume) 13.4 g/dL 11.5-16.0 Blood hematocrit (volume fraction) 41 % 35-52 Automated erythrocyte mean corpuscular volume 91 [ foz_us] 80-99 Automated erythrocyte mean corpuscular h emoglobin (mass per erythrocyte) 30 pg 25-34 Automated erythrocyte mean corpuscular h emoglobin concentration measurement (mass/volume) 33 g/dL 32-36 Automated erythrocyte distribution width ratio 14. 3 % 10.0- 14.5 Automated blood platelet count (count/volume) 197 10*3/uL 130-400 Automated blood platelet mean volume measurement 9.6 [foz_us] 7.4-10.4 Automated blood neutrophils/100 leukocytes 56 % 42-75 Automated blood lymphocytes/100 leukocytes 32 % 12-44 Blood monocytes/100 leukocytes 8 % 0-12 Automated blood eosinophils/100 leukocytes 5 % 0-10 Automated blood basophils/100 leukocytes 1 % 0-10 Blood neutrophils automated count (number/volume) 3.3 10*3 1.8-7.8 Blood lymphocytes automated count (number/volume) 1.9 10*3 1.0-4.0 Blood monocytes automated count (number/volume) 0. 5 10*3 0.0-1.0 Automated eosinophil count 0.3 10*3/uL 0 .0-0.3 Automated blood basophil count (count/volume) 0.0 10*3/uL 0.0-0.1 PT panel in platelet poor plasma by coag ulation assay - 06/28/19 09:15 Prothrombin time (PT) in platelet poor plasma by coagu lation assay 13.8 s 12.2-14.7 INR in platelet poor plasma or blood by coagulation as say 1.0 0.8-1.4 Activated partial thromboplastin time (a PTT) in platelet poor plasma bycoagulation assay - 06/28/19 09:15 Activated partial thromboplastin time (a PTT) in platelet poor plasma bycoagulation assay 31 s 24-35 Comprehensive metabolic panel - 06/28/19 09:15 Serum or plasma sodium measurement (moles/volume) 142 mmol/L 135-145 Serum or plasma potassium measurement (moles/volume) 3.8 mmol/L 3.6-5.0 Serum or plasma chloride measurement (moles/volume) 105 mmol/L 98-107 Carbon dioxide 30 mmol/L 21-32 Serum or plasma anion gap determination (moles/volume) 7 mmol/L 5-14 Serum or plasma urea nitrogen measurement (mass/volume ) 12 mg/dL 7-18 Serum or plasma creatinine measurement (mass/volume) 0.85 mg/dL 0.60-1.30 Serum or plasma urea nitrogen/creatinine mass ratio 14 NRG Serum or plasma creatinine measurement w ith calculation of estimated glomerular filtration rate > NRG Serum or plasma glucose measurement (mass/volume) 123 mg/dL 70-105 Serum or plasma calcium measurement (mass/volume) 8.6 mg/dL 8.5-10.1 Serum or plasma total bilirubin measurement (mass/volu me) 0.3 mg/dL 0.1-1.0 Serum or plasma alkaline phosphatase olvin surement (enzymatic activity/volume) 101 U/L 40-136 Serum or plasma aspartate aminotransfera se measurement (enzymatic activity/volume) 20 U/L 5-34 Serum or plasma alanine aminotransferase measurement (enzymatic activity/volume) 18 U/L 0-55 Serum or plasma protein measurement (mass/volume) 6.6 g/dL 6.4-8.2 Serum or plasma albumin measurement (mass/volume) 3.9 g/dL 3.2-4.5 CALCIUM CORRECTED 8.7 mg/dL 8.5-10.1 Magnesium - 06/28/19 09:15 Magnesium 1.8 mg/dL 1.6-2.4 Myoglobin, serum - 06/28/19 09:15 Myoglobin, serum 44.6 ng/mL 10.0-92.0 Serum or plasma troponin i.cardiac measu rement (mass/volume) - 06/28/19 09:15 Serum or plasma troponin i.cardiac measurement (mass/v olume) < ng/mL <0.028 Encounters ACCT No. Visit Date/Time Discharge Status Pt. Type Provider Facility Loc./Unit Complaint [id number] 07/27/2019 10:40:00 07/27/2019 23:59:[address] [facility] Outpatient SONIA MARTIN [facility] [id number] 10/23/2019 17:15:00 020 20:04:00 DIS Emergency CHINEDU BAEZ Via [facility] ER SOB,CP [id number] 06/28/2019 09:02:00 10:35:00 DIS Emergency SOLO DO, LENA L [facility] ER CHEST PAIN [id number] 01/23/2019 15:01:00 17:18:00 DIS Emergency REBEKAHJAYDEN CAREER AND TRANSITION TEACHER Via [facility] ER R ARM PAIN,SOA,N/V,REESE [id number] 08/30/2018 09:58:00 15:20:00 DIS Outpatient CELIO LU FACC, SHIRA WILLIAMSON CC DS Via [facility] CATH ANGINA,PAF,SOB,FATIGUE,HTN [id number] 05/31/2018 15:50:00 019 17:58:00 DIS Emergency CHINEDU BAEZ [facility] ER SOB [id number] 05/25/2018 18:11:00 019 19:49:00 DIS Emergency JAYDEN WELCH [facility] ER SOB [id number] 04/17/2018 18:40:00 18:50:00 DIS Outpatient STEFAN ROBLES MD Via [facility] ER R ARM LUMP/BLOOD UNDER SKIN [id number] 03/24/2018 16:07:00 23:59:59 CLS Preadmit MARCIA LU, MALGORZATA Via [facility] WOUNDCARE [id number] 02/23/2018 15:02:00 17:19:00 DIS Emergency ZHANE LU, JAMES Rodríguez Via [facility] ER L LEG CELLULITI S [id number] 02/20/2018 17:13:00 15:27:00 DIS Inpatient CHARLY LU, EFRAIN Gutierrez [facility] ICU SOB [id number] 02/17/2018 10:34:00 23:59:59 CLS Outpatient SCARLET GARRETT APRN Via [facility] RAD PAIN AND SWELLI NG OF LEFT LOWER LEG [id number] 02/15/2018 09:44:00 13:00:00 DIS Emergency JONNATHAN MALLOY APRN Via [facility] ER STOMACH PAIN; CHEST REESE N [id number] 06/09/2017 15:00:00 018 16:58:00 DIS Emergency MOLLY ARANA Via [facility] ER NEEDS ANTIBIOTIC HERE LAST NIGHT FOR NOSE BLEED [id number] 06/08/2017 21:55:00 23:20:00 DIS Emergency TASHA LU, HUGH Ba Via [facility] ER NOSE BLEED FOR 45 MINUTES - BLOOD THINNERS [id number] 04/29/2017 15:16:00 23:59:59 CLS Outpatient SCARLET GARRETT APRN Via [facility] RAD M554.42 [id number] 03/28/2017 15:34:00 12/03/2 017 18:53:00 DIS Emergency NICK CARISSA SALAZAR [facility] ER L LEG SWELLING/PAIN [id number] 01/12/2017 15:46:00 017 17:08:00 DIS Emergency JONNATHAN MALLOY APRN Via [facility] ER TROUBLE BREATHING;HEAVI NESS IN CHEST [id number] 11/29/2016 23:07:00 017 02:36:00 DIS Emergency HUGH CORDOVA MD Via [facility] ER D/N FEVER WEAK [id number] 08/25/2016 14:30:00 017 18:32:00 DIS Emergency JAMES PHELAN MD Via [facility] ER DIZZINESS/NAUSE A/SHAKEY LEFT CALF PAIN [id number] 05/12/2016 23:38:00 01:24:00 DIS Emergency CARISSA ROMERO DO [facility] ER N/V/D [id number] 02/25/2016 14:56:00 016 23:59:59 CLS Outpatient SAIDA HAMEED MD Via [facility] RAD WHEEZING [id number] 08/13/2015 08:10:00 016 23:59:59 CLS Outpatient ESTELA SALINAS CAREER AND TRANSITION TEACHER Via [facility] CARD CHEST PAIN,PALPITATIONS,AFIB [id number] 06/16/2015 12:33:00 016 14:55:00 DIS Emergency SANDRITA ALVARADO MD Via [facility] ER SOB/COPD [id number] 04/05/2015 09:50:00 015 12:07:00 DIS Emergency SANDRITA ALVARADO MD Via [facility] ER SOA [id number] 04/02/2015 12:02:00 015 09:45:00 DIS Inpatient SAIDA HAMEED MD Via [facility] 4TH COPD,EXACERBATION [id number] 02/21/2015 15:46:00 10/29/2 015 23:59:59 CLS Outpatient ZARI LU, SAIDA Oliveira [facility] RAD BRONCHITIS [id number] 11/20/2014 23:05:00 015 09:45:00 DIS Inpatient ZARI LU, SAIDA Oliveira [facility] 4TH BLEACH FUMES EXPOSURE,C OPD EXACERBATION [id number] 10/25/2014 14:21:00 015 19:30:00 DIS Emergency JAMES PHELAN MD Via [facility] ER LEFT GROIN PAIN [id number] 10/13/2013 20:46:00 014 00:44:00 DIS Emergency JULIANA HERNANDEZ DO Via [facility] ER L LEG PAIN; CHEST PAIN [id number] 09/25/2013 12:37:00 014 23:59:59 CLS Outpatient TRACY JOSEPH DO Via [facility] RT COPD,AFIB [id number] 08/25/2013 00:35:00 014 12:05:00 DIS Inpatient SAIDA HAMEED MD Via [facility] CSD CHEST PAIN,SUBTHERAPEUT IC INR [id number] 07/04/2013 11:07:00 014 23:59:59 CLS Outpatient SAIDA HAMEED MD Via [facility] RAD SWELLING,PAIN [id number] 06/28/2013 16:29:00 014 17:24:00 DIS Emergency CARISSA ROMERO DO Vi a [facility] ER VOMITING,COUGH, POST EX POSURE TO CLOROX [id number] 05/21/2013 20:58:00 014 10:45:00 DIS Inpatient SAIDA HAMEED MD Via [facility] 4TH COPD EXACERBATION;WEAKN ESS [id number] 05/21/2013 13:28:00 014 15:42:00 DIS Emergency JONNATHAN MALLOY AUTOMATIC DEVELOPER Via [facility] ER SOA CONGESTION R ARM PA IN [id number] 03/24/2013 17:10:00 09:50:00 DIS Inpatient JOSH LU, VIELKA Lazo Via [facility] ICU CHEST PAIN [id number] 03/01/2013 01:10:00 14:29:00 DIS Inpatient ZARI LU, SAIDA Oliveira Via [facility] 4TH ACUTE EXACERBATION OF C OPD [id number] 02/13/2013 12:59:00 14:18:00 DIS Emergency JONNATHAN MALLOY APRN Via [facility] ER LEFT LEG/GROIN PAIN [id number] 12/27/2012 13:08:00 15:00:00 DIS Emergency JONNATHAN MALLOY APRN Via [facility] ER RIGHT ARM NUMBNESS/LEFT THIGH KNOT [id number] 12/02/2012 08:45:00 23:59:59 CLS Outpatient JAMES PHELAN MD Via [facility] LAB SUPRATHERAPEUTI C INR [id number] 11/30/2012 15:06:00 18:11:00 DIS Emergency JAMES PHELAN MD Via [facility] ER SOA,HEADACHE,DI ZZINESS [id number] 10/30/2012 11:45:00 23:59:59 CLS Outpatient [id number] 08/20/2012 10:02:00 23:59:59 CLS Outpatient [id number] 10/25/2014 14:22:00 Document Registration [id number] 10/25/2014 14:22:00 Document Registration [id number] 10/25/2014 14:21:00 Document Registration [id number] 10/25/2014 14:21:00 Document Registration [id number] 10/25/2014 14:21:00 Document Registration [id number] 10/25/2014 14:21:00 Document Registration [id number] 10/25/2014 14:21:00 Document Registration [id number] 10/25/2014 14:21:00 Document Registration [id number] 10/25/2014 14:21:00 Document Registration [id number] 07/01/2014 22:30:00 Document Registration [id number] 06/13/2012 19:15:00 Document Registration [id number] 02/23/2012 01:00:00 Document Registration [id number] 12/03/2011 00:00:00 Document Registration [id number] 11/12/2011 21:51:00 Document Registration [id number] 10/13/2011 08:28:00 Document Registration [id number] 09/03/2011 12:33:00 Document Registration [id number] 08/21/2011 20:45:00 Document Registration [id number] 03/24/2011 20:48:00 Document Registration [id number] 01/24/2011 21:19:00 Document Registration [id number] 09/28/2010 18:20:00 Document Registration [id number] 04/29/2010 21:21:00 Document Registration [id number] 02/10/2010 09:58:00 Document Registration [id number] 01/29/2010 14:43:00 Document Registration [id number] 11/25/2009 11:02:00 Document Registration [id number] 11/13/2009 23:33:00 Document Registration [id number] 10/28/2009 11:54:00 Document Registration [id number] 09/27/2009 10:28:00 Document Registration [id number] 09/20/2009 15:31:00 Document Registration [id number] 07/29/2009 13:39:00 Document Registration [id number] 07/29/2009 12:23:00 Document Registration [id number] 05/08/2019 15:22:43 05/08/2019 23:59:[address] [place] [address]
== END 2019-10-23 20:04 | disposition home or self-care (01) ==
LOC: EDUNIT# 17:14 → ER 17:15
DX: R07.9 Chest pain, unspecified (principal); J44.9 Chronic obstructive pulmonary disease, unspecified; G47.30 Sleep apnea, unspecified; I48.91 Unspecified atrial fibrillation; I25.10 Atherosclerotic heart disease of native coronary artery without angina pectoris; I25.2 Old myocardial infarction; E78.00 Pure hypercholesterolemia, unspecified; I10 Essential (primary) hypertension; I73.9 Peripheral vascular disease, unspecified; M19.90 Unspecified osteoarthritis, unspecified site; M54.9 Dorsalgia, unspecified; E03.9 Hypothyroidism, unspecified; F41.9 Anxiety disorder, unspecified; F31.9 Bipolar disorder, unspecified; Z87.891 Personal history of nicotine dependence; Z79.890 Hormone replacement therapy; Z79.899 Other long term (current) drug therapy; Z79.82 Long term (current) use of aspirin
CPT/HCPCS: 71045; 80053; 83735; 83874; 84484; 85025; 85379; 85610; 85730; 93005; 93041; 99284; U0002; 36415; 87635

== ENCOUNTER 2020-07-01 19:46 | Emergency (ER) | payer MEDICARE, MEDICAID ==
[~2020-07-01 19:46] MED LIST changes: +AMLO-250 PO; -AMLO5TAB9 PO; +ASPI-1238 PO; -ASPI-983 PO
--- NOTE | 2020-07-01 20:12 | ED Abdominal Pain ---
General Chief Complaint: Abdominal/GI Problems Stated Complaint: ABD PAIN, SOA Source of Information: Patient Exam Limitations: No Limitations History of Present Illness Date Seen by Provider: Jul 01, 2020 Time Seen by Provider: 20:12 Initial Comments Released from Covid quarantine 2 days ago. Comes in today with persistent dyspnea and constipation. She has completed steroids. She has a nebulizer at home but no medication for it. She does have an inhaler. She has tried pill stool softener without relief. Timing/Duration: 1-2 Days Severity/Quality: Moderate Location: Generalized Abdomen Radiation: No Radiation Activities at Onset: None Associated Symptoms: Shortness of Air Allergies and Home Medications Allergies Coded Allergies: No Known Drug Allergies (Verified , 04/02/15) Home Medications Albuterol Sulfate 2.5 Mg/3 Ml Vial.neb, 2.5 MG INH Q4H Prescribed by: JAYDEN WELCH on 01/23/191651 Amlodipine Besylate 5 Mg Tablet, 5 MG PO DAILY, (Reported) Apixaban 5 Mg Tablet, 5 MG PO DAILY, (Reported) Aspirin 81 Mg Tablet.dr, 81 MG PO DAILY, (Reported) Furosemide 40 Mg Tablet, 40 MG PO DAILY, (Reported) Levothyroxine Sodium 25 Mcg Tablet, 25 MCG PO DAILY, (Reported) Meclizine HCl 25 Mg Tablet, 25 MG PO TID PRN for DIZZINESS, (Reported) Metoprolol Succinate 50 Mg Tab.er.24h, 50 MG PO DAILY, (Reported) Multivit-Min/FA/Lycopene/Lut 1 Each Tablet, 1 TAB PO DAILY, (Reported) Potassium Chloride 20 Meq Tab.er.prt, 20 MEQ PO DAILY, (Reported) Prednisone 20 Mg Tab, 40 MG PO DAILY Prescribed by: JAYDEN WELCH on 01/23/191651 Simvastatin 20 Mg Tablet, 20 MG PO DAILY, (Reported) LAST FILLED #90 6-28-18 Patient Home Medication List Home Medication List Reviewed: Yes Review of Systems Review of Systems Constitutional: see HPI EENTM: No Symptoms Reported Respiratory: See HPI, Cough, Shortness of Air Cardiovascular: No Symptoms Reported Gastrointestinal: See HPI, Abdominal Pain, Constipated Genitourinary: No Symptoms Reported Musculoskeletal: no symptoms reported Skin: no symptoms reported Psychiatric/Neurological: No Symptoms Reported Endocrine: No Symptoms Reported Past Iclycly-Pumtov-Poyfqp Hx Patient Social History Type Used: Cigarettes 2nd Hand Smoke Exposure: Yes Recent Hopitalizations: No Immunizations Up To Date Tetanus Booster (TDap): Unknown PED Vaccines UTD: No Date of Pneumonia Vaccine: Apr 26, 2012 Date of Influenza Vaccine: Feb 24, 2015 Seasonal Allergies Seasonal Allergies: No Past Medical History Surgeries: Yes (BILATERAL LEG VEIN STRIPPING ; MULTIPLE CARDIAC CATHS; LEFT WRIST REPAIR) Appendectomy, Cardiac, Ear Surgery, Hysterectomy, Orthopedic, Tubal Ligation, Vascular Surgery Respiratory: Yes Asthma, Pneumonia, Chronic Bronchitis, Sleep Apnea, COPD Currently Using CPAP: No Currently Using BIPAP: No Cardiac: Yes (PR 2004; VARICOSE VEINS) Atrial Fibrillation, Coronary Artery Disease, Heart Attack, High Cholesterol, Hypertension, Irregular Heartbeat, Peripheral Vascular Neurological: Yes Headaches /Migraines 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 Disorders: No Female 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 Sexually Transmitted Disease: No HIV/AIDS: No Genitourinary: No Gastrointestinal: No Musculoskeletal: Yes ("PLATE IN LEFT WRIST"--NARCOTIC DEPENDENT) Arthritis, Chronic Back Pain, Fractures Endocrine: Yes Hypothyroidsim Loss of Vision: Denies Hearing Impairment: Denies Cancer: No Psychosocial: Yes Anxiety, Bipolar, Depression Integumentary: No Blood Disorders: No Adverse Reaction/Blood Tranf: No Family Medical History Cancer 03 MOTHER, Onset:60 years & older son, Onset:10's - 15 Dementia 03 MOTHER, Onset:60 years & older Family history: Alzheimer's disease 03 MOTHER, Onset:60 years & older Family history: Hypertension 09 BROTHER, Onset:30's - 40 Family history: Thyroid disorder daughter, Onset:20's - 25 History of - respiratory disease 09 BROTHER, Onset:[place] No Pertinent Family Hx Physical Exam Vital Signs Vital Signs - First Documented 07/01/20 20:01 Temp 36.1 Pulse 91 Resp 26 B/P (MAP) 150/114 (126) O2 Delivery Room Air Capillary Refill : Height/Weight/BMI Height: 6'0.00" Weight: 299lbs. 0.0oz. 135.509295si; 43.00 BMI Method:Stated General Appearance: WD/WN, no apparent distress Respiratory: no respiratory distress, no accessory muscle use Cardiovascular: regular rate, rhythm, no murmur Gastrointestinal: normal bowel sounds, non tender, soft Extremities: normal range of motion, non-tender Neurologic/Psychiatric: alert, normal mood/affect, oriented x 3 Skin: normal color, warm/dry Progress/Results/Core Measures Results/Orders Lab Results Laboratory Tests Test 07/01/20 20:04 07/01/20 20:15 07/01/20 20:18 Range/Units Urine Color YELLOW Urine Clarity CLEAR Urine pH 6.5 5-9 Urine Specific [place] 1.020 1.016-1.022 Urine Protein NEGATIVE NEGATIVE Urine Glucose (UA) NEGATIVE NEGATIVE Urine Ketones NEGATIVE NEGATIVE Urine Nitrite NEGATIVE NEGATIVE Urine Bilirubin NEGATIVE NEGATIVE Urine Urobilinogen 0.2 < = 1.0 MG/DL Urine Leukocyte Esterase TRACE H NEGATIVE Urine RBC (Auto) NEGATIVE NEGATIVE Urine RBC NONE /HPF Urine WBC 2-5 /HPF Urine Squamous Epithelial Cells NONE /HPF Urine Crystals NONE /LPF Urine Bacteria NEGATIVE /HPF Urine Casts NONE /LPF Urine Mucus NEGATIVE /LPF Urine Culture Indicated NO Troponin I < 0.028 <0.028 NG/ML White Blood Count 7.8 4.3-11.0 10^3/uL Red Blood Count 5.05 3.80-5.11 10^6/uL Hemoglobin 14.6 11.5-16.0 g/dL Hematocrit 46 35-52 % Mean Corpuscular Volume 92 80-99 fL Mean Corpuscular Hemoglobin 29 25-34 pg Mean Corpuscular Hemoglobin Concent 32 32-36 g/dL Red Cell Distribution Width 13.6 10.0-14.5 % Platelet Count 240 130-400 10^3/uL Mean Platelet Volume 9.4 9.0-12.2 fL Immature Granulocyte % (Auto) 0 % Neutrophils (%) (Auto) 58 42-75 % Lymphocytes (%) (Auto) 29 12-44 % Monocytes (%) (Auto) 9 0-12 % Eosinophils (%) (Auto) 3 0-10 % Basophils (%) (Auto) 1 0-10 % Neutrophils # (Auto) 4.6 1.8-7.8 10^3/uL Lymphocytes # (Auto) 2.3 1.0-4.0 10^3/uL Monocytes # (Auto) 0.7 0.0-1.0 10^3/uL Eosinophils # (Auto) 0.3 0.0-0.3 10^3/uL Basophils # (Auto) 0.1 0.0-0.1 10^3/uL Immature Granulocyte # (Auto) 0.0 0.0-0.1 10^3/uL Sodium Level 142 135-145 MMOL/L Potassium Level 4.2 3.6-5.0 MMOL/L Chloride Level 102 98-107 MMOL/L Carbon Dioxide Level 28 21-32 MMOL/L Anion Gap 12 5-14 MMOL/L Blood Urea Nitrogen 12 7-18 MG/DL Creatinine 1.32 H 0.60-1.30 MG/DL Estimat Glomerular Filtration Rate 40 BUN/Creatinine Ratio 9 Glucose Level 118 H 70-105 MG/DL Calcium Level 9.0 8.5-10.1 MG/DL Corrected Calcium 8.9 8.5-10.1 MG/DL Total Bilirubin 0.4 0.1-1.0 MG/DL Aspartate Amino Transf (AST/SGOT) 36 H 5-34 U/L Alanine Aminotransferase (ALT/SGPT) 38 0-55 U/L Alkaline Phosphatase 95 40-136 U/L Total Protein 7.3 6.4-8.2 GM/DL Albumin 4.1 3.2-4.5 GM/DL My Orders Orders - JONNATHAN MALLOY [employer] Cbc With Automated Diff (07/01/20 20:11) Comprehensive Metabolic Panel (07/01/20 20:11) Ua Culture If Indicated (07/01/20 20:11) Ed Iv/Invasive Line Start (07/01/20 20:11) Ct April Chest/Noang Abd-Pelv W (07/01/20 20:11) Troponin I (07/01/20 20:25) Ekg Tracing (07/01/20 20:25) Ns Iv 1000 Ml (Sodium Chloride 0.9%) (07/01/20 21:15) Iohexol Injection (Omnipaque 350 Mg/Ml 1 (07/01/20 21:30) Received Contrast (Hold Metformin- Contr (07/01/20 21:30) Sodium Chloride Flush (Catheter Flush Sy (07/01/20 21:30) Ns (Ivpb) (Sodium Chloride 0.9% Ivpb Bag (07/01/20 21:30) Rx-Albuterol Nebs (Rx-Proventil Nebs) (07/01/20 21:48) Magnesium Citrate Oral Soln (Citrate Of (07/01/20 22:00) Medications Given in ED Current Medications Medications Dose Ordered Sig/Brianna Route Start Time Stop Time Status Last Admin Dose Admin Iohexol 100 ml ONCE ONCE IV 07/01/20 21:30 07/01/20 21:31 DC 07/01/20 21:36 88 ML Sodium Chloride 10 ml NEEDED PRN IV 07/01/20 21:30 07/01/20 21:36 10 ML Sodium Chloride 100 ml ONCE ONCE IV 07/01/20 21:30 07/01/20 21:31 DC 07/01/20 21:36 80 ML Vital Signs/I&O 07/01/20 20:01 Temp 36.1 Pulse 91 Resp 26 B/P (MAP) 150/114 (126) O2 Delivery Room Air Departure Impression Primary Impression: Acute exacerbation of chronic obstructive airways disease Disposition: HOME, SELF-CARE Condition: Stable Departure-Patient Inst. Decision time for Depature: 21:39 Referrals: SONIA MARTIN (PCP) Primary Care Physician SAIDA HAMEED MD (Family) Primary Care Physician Patient Instructions: No Instuctions Given Add. Discharge Instructions: 1. Return to ER for any concerns. Follow-up with your doctor next week. 1 All discharge instructions reviewed with patient and/or family. Voiced understanding. JONNATHAN MALLOY APRN Jul 01, 2020 20:12
[2020-07-01 20:17] LABS: BILIRUBIN,URINE NEGATIVE (NEGATIVE); CLARITY,URINE CLEAR; COLOR,URINE YELLOW; GLUCOSE, URINE (UA) NEGATIVE (NEGATIVE); KETONES,URINE NEGATIVE (NEGATIVE); LEUKOCYTE ESTERASE ,URINE TRACE (NEGATIVE); NITRITE,URINE NEGATIVE (NEGATIVE); PH,URINE 6.5 (5-9); PROTEIN,URINE NEGATIVE (NEGATIVE)
[2020-07-01 20:28] LABS: BASOPHILS # (AUTO) 0.1 10^3/uL (0.0-0.1); BASOPHILS % (AUTO) 1 % (0-10); EOSINOPHILS # (AUTO) 0.3 10^3/uL (0.0-0.3); EOSINOPHILS % (AUTO) 3 % (0-10); HEMATOCRIT 46 % (35-52); HEMOGLOBIN 14.6 g/dL (11.5-16.0); LYMPHOCYTES # (AUTO) 2.3 10^3/uL (1.0-4.0); LYMPHOCYTES % (AUTO) 29 % (12-44); MEAN CORPUSCULAR HEMOGLOBIN 29 pg (25-34); MEAN CORPUSCULAR HGB CONC 32 g/dL (32-36); MEAN CORPUSCULAR VOLUME 92 fL (80-99); MEAN PLATELET VOLUME 9.4 fL (9.0-12.2); MONOCYTES # (AUTO) 0.7 10^3/uL (0.0-1.0); MONOCYTES % (AUTO) 9 % (0-12); NEUTROPHILS # (AUTO) 4.6 10^3/uL (1.8-7.8); NEUTROPHILS % (AUTO) 58 % (42-75); PLATELET COUNT 240 10^3/uL (130-400); WHITE BLOOD COUNT 7.8 10^3/uL (4.3-11.0)
[2020-07-01 20:29] LABS: BACTERIA,URINE NEGATIVE /HPF
[2020-07-01 20:47] LABS: ALBUMIN 4.1 GM/DL (3.2-4.5); BILIRUBIN,TOTAL 0.4 MG/DL (0.1-1.0); CREATININE SERUM 1.32 MG/DL (0.60-1.30); POTASSIUM 4.2 MMOL/L (3.6-5.0); TOTAL PROTEIN 7.3 GM/DL (6.4-8.2)
[2020-07-01] MEDS ORDERED: HOLD METFORMIN - RECEIVED CONTRAST 20 ML VIAL IV SCH (21:30)
[2020-07-01] MEDS ORDERED: NS 100 ML (IVPB) BAG IV ONE (21:30)
[2020-07-01] MEDS ORDERED: IOHEXOL 350 MG/ML 100 ML (OMNIPAQUE 350) VIAL IV ONE (21:30)
[2020-07-01] MEDS ORDERED: CATHETER FLUSH 10 ML SYR IV PRN (21:30)
[2020-07-01] MEDS ORDERED: RX-ALBUTEROL NEB 2.5 MG/3 ML PACK #5 IH STA (21:48)
--- NOTE | 2020-07-01 21:49 | Diagnostic Imaging Report ---
INDICATION: post Covid soa/abd pain CTA chest, abdomen and pelvis Thin axial sections through the chest, abdomen and pelvis are obtained following intravenous contrast bolus. Multiplanar MIP images were reconstructed and reviewed. All CT scans use one or more of the following dose optimizing techniques: automated exposure control, MA and/or KvP adjustment based on patient size and exam type or iterative reconstruction. FINDINGS: CT ANGIO CHEST: There are faint patchy alveolar infiltrates in the periphery of the left lung. There are no effusions or pneumothoraces. There are no pulmonary emboli. There is no right ventricular strain. There are a few small right paratracheal lymph nodes. The aorta is unremarkable. There is coronary calcific arterial sclerosis. IMPRESSION: 1. Minimal peripheral infiltrate in the left lung could be due to Covid pneumonia. No evidence for pulmonary embolism or aortic dissection. CT ABDOMEN / PELVIS: The liver appears normal. The gallbladder is contracted. Portal vein is patent. Common duct is not dilated. Pancreas appears normal. Spleen is not enlarged. Kidneys and adrenals are unremarkable. There is calcific arterial sclerosis of the aorta but no aneurysm. The appendix appears to be surgically absent. The small bowel is not dilated. The colon is unremarkable. Uterus is surgically absent. Urinary bladder is normal. There is no intraperitoneal free air or free fluid. IMPRESSION: 1. No acute abnormality is seen in the abdomen or pelvis. Dictated by: Dictated on workstation # [id number]
[2020-07-01] MEDS: NS IV 1000 ML 1,000 ML IV SCH ×2 (21:57→22:26)
[2020-07-01] MEDS ORDERED: MAGNESIUM CITRATE 300 ML BTL PO ONE (22:00)
[2020-07-01 23:01] VITALS: BP 140/77
== END 2020-07-01 23:03 | disposition home or self-care (01) ==
LOC: EDUNIT# 19:46 → ER 19:47
DX: J44.1 Chronic obstructive pulmonary disease with (acute) exacerbation (principal); I25.2 Old myocardial infarction; I48.91 Unspecified atrial fibrillation; I25.10 Atherosclerotic heart disease of native coronary artery without angina pectoris; E78.00 Pure hypercholesterolemia, unspecified; I10 Essential (primary) hypertension; E03.9 Hypothyroidism, unspecified; Z80.9 Family history of malignant neoplasm, unspecified; Z95.9 Presence of cardiac and vascular implant and graft, unspecified; Z77.22 Contact with and (suspected) exposure to environmental tobacco smoke (acute) (chronic); Z79.01 Long term (current) use of anticoagulants; Z79.52 Long term (current) use of systemic steroids; Z79.890 Hormone replacement therapy; Z79.82 Long term (current) use of aspirin
CPT/HCPCS: 36415; 71275; 74177; 80053; 81000; 84484; 85025; 93005; 96360

== ENCOUNTER 2020-08-12 15:52 | Observation (INO) | payer MEDICARE, MEDICAID ==
[~2020-08-12] VITALS: Ht 177.8 cm; Wt 136.0 kg
[2020-08-12] MEDS ORDERED: ASPIRIN 81 MG CHEW (CHILDREN'S ASA) PO ONE (16:30)
[2020-08-12 16:34] LABS: BASOPHILS % (AUTO) 1 % (0-10); EOSINOPHILS # (AUTO) 0.2 10^3/uL (0.0-0.3); EOSINOPHILS % (AUTO) 4 % (0-10); HEMATOCRIT 45 % (35-52); HEMOGLOBIN 14.3 g/dL (11.5-16.0); LYMPHOCYTES # (AUTO) 1.8 10^3/uL (1.0-4.0); LYMPHOCYTES % (AUTO) 34 % (12-44); MEAN CORPUSCULAR HEMOGLOBIN 30 pg (25-34); MEAN CORPUSCULAR HGB CONC 32 g/dL (32-36); MEAN CORPUSCULAR VOLUME 93 fL (80-99); MEAN PLATELET VOLUME 9.6 fL (9.0-12.2); MONOCYTES # (AUTO) 0.5 10^3/uL (0.0-1.0); MONOCYTES % (AUTO) 9 % (0-12); NEUTROPHILS # (AUTO) 2.7 10^3/uL (1.8-7.8); NEUTROPHILS % (AUTO) 52 % (42-75); PLATELET COUNT 179 10^3/uL (130-400); WHITE BLOOD COUNT 5.2 10^3/uL (4.3-11.0)
[2020-08-12 16:44] LABS: ALBUMIN 4.2 GM/DL (3.2-4.5); CHLORIDE 103 MMOL/L (98-107); POTASSIUM 3.6 MMOL/L (3.6-5.0); SODIUM 141 MMOL/L (135-145)
[2020-08-12 16:45] LABS: CALCIUM 9.1 MG/DL (8.5-10.1)
[2020-08-12 16:46] LABS: GLUCOSE 104 MG/DL (70-105)
[2020-08-12 16:47] LABS: TOTAL PROTEIN 7.2 GM/DL (6.4-8.2)
[2020-08-12 16:48] LABS: BILIRUBIN,TOTAL 0.4 MG/DL (0.1-1.0); CARBON DIOXIDE 28 MMOL/L (21-32)
[2020-08-12 16:50] LABS: ALKALINE PHOSPHATASE 92 U/L (40-136); CREATININE SERUM 0.81 MG/DL (0.60-1.30); GFR ESTIMATED > 60
[2020-08-12 16:51] LABS: BUN/CREATININE RATIO 12
[2020-08-12 16:53] LABS: ALANINE AMINOTRANSFERASE 25 U/L (0-55); MAGNESIUM 1.7 MG/DL (1.6-2.4); PROTHROMBIN TIME PATIENT 13.8 SEC (12.2-14.7)
[2020-08-12 16:54] LABS: LIPASE 20 U/L (8-78)
--- NOTE | 2020-08-12 17:18 | ED Chest Pain ---
General Chief Complaint: Chest Pain Stated Complaint: PUI,CHEST PAIN,SOB,BACK PAIN Nursing Triage Note: pt presents to ed via pov from home with complaints of worsening of soa since wednesday. cp starting last night behind breast and radiates to l armpit. pt reports perry/fatigue starting last weekend. pt also reports chills/nausea. Nursing Sepsis Screen: No Definite Risk Source: patient Exam Limitations: no limitations History of Present Illness Date Seen by Provider: Aug 12, 2020 Time Seen by Provider: 16:30 Initial Comments Patient presents to the ER by private conveyance with chief complaint for the past 1 day she has been having shortness of air and some intermittent chest pain under her left breast. She has a history of coronary disease has a history of ND and follow-up with Dr. Landon. She does not have any stents however because her vascular disease she says was too small to be stented. She did take her aspirin this morning she did not take any nitroglycerin. She is not having any nausea fevers chills sweats but she does feel very weak and tired. She thought maybe she has Covid. Allergies and Home Medications Allergies Coded Allergies: No Known Drug Allergies (Verified , 04/02/15) Home Medications Albuterol Sulfate 2.5 Mg/3 Ml Vial.neb, 2.5 MG INH Q4H Prescribed by: JAYDEN WELCH on 01/23/191651 Amlodipine Besylate 5 Mg Tablet, 5 MG PO DAILY, (Reported) Apixaban 5 Mg Tablet, 5 MG PO DAILY, (Reported) Aspirin 81 Mg Tablet.dr, 81 MG PO DAILY, (Reported) Furosemide 40 Mg Tablet, 40 MG PO DAILY, (Reported) Levothyroxine Sodium 25 Mcg Tablet, 25 MCG PO DAILY, (Reported) Meclizine HCl 25 Mg Tablet, 25 MG PO TID PRN for DIZZINESS, (Reported) Metoprolol Succinate 50 Mg Tab.er.24h, 50 MG PO DAILY, (Reported) Multivit-Min/FA/Lycopene/Lut 1 Each Tablet, 1 TAB PO DAILY, (Reported) Potassium Chloride 20 Meq Tab.er.prt, 20 MEQ PO DAILY, (Reported) Prednisone 20 Mg Tab, 40 MG PO DAILY Prescribed by: JAYDEN WELCH on 01/23/191651 Simvastatin 20 Mg Tablet, 20 MG PO DAILY, (Reported) LAST FILLED #90 10-21-17 Patient Home Medication List Home Medication List Reviewed: Yes Review of Systems Review of Systems Constitutional: No chills, No diaphoresis EENTM: No Blurred Vision, No Double Vision Respiratory: Denies Cough, Denies Shortness of Air Cardiovascular: Chest Pain; Denies Edema, Denies Lightheadedness Gastrointestinal: Denies Constipated, Denies Diarrhea; Vomiting Genitourinary: Denies Burning, Denies Discharge Musculoskeletal: No back pain, No gout, No joint pain Skin: No pruritus, No rash Psychiatric/Neurological: Denies Anxiety, Denies Depressed All Other Systems Reviewed Negative Unless Noted: Yes Past Xazpmwa-Ovhtts-Jdangk Hx Patient Social History Alcohol Use: Denies Use Smoking Status: Former Smoker Type Used: Cigarettes 2nd Hand Smoke Exposure: Yes Recent Infectious Disease Expo: No Recent Hopitalizations: No Immunizations Up To Date Tetanus Booster (TDap): Unknown PED Vaccines UTD: No Date of Pneumonia Vaccine: Apr 26, 2012 Date of Influenza Vaccine: Feb 24, 2015 Seasonal Allergies Seasonal Allergies: No Past Medical History Surgeries: Yes (BILATERAL LEG VEIN STRIPPING ; MULTIPLE CARDIAC CATHS; LEFT WRIST REPAIR) Appendectomy, Cardiac, Ear Surgery, Hysterectomy, Orthopedic, Tubal Ligation, Vascular Surgery Respiratory: Yes Asthma, Pneumonia, Chronic Bronchitis, Sleep Apnea, COPD Currently Using CPAP: No Currently Using BIPAP: No Cardiac: Yes (ND 2004; VARICOSE VEINS) Atrial Fibrillation, Coronary Artery Disease, Heart Attack, High Cholesterol, Hypertension, Irregular Heartbeat, Peripheral Vascular Neurological: Yes Headaches /Migraines 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 Disorders: No 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 Sexually Transmitted Disease: No HIV/AIDS: No Genitourinary: No Gastrointestinal: No Musculoskeletal: Yes ("PLATE IN LEFT WRIST"--NARCOTIC DEPENDENT) Arthritis, Chronic Back Pain, Fractures Endocrine: Yes Hypothyroidsim Loss of Vision: Denies Hearing Impairment: Denies Cancer: No Psychosocial: Yes Anxiety, Bipolar, Depression Integumentary: No Blood Disorders: No Adverse Reaction/Blood Tranf: No Family Medical History Cancer 03 MOTHER, Onset:60 years & older son, Onset:10's - 15 Dementia 03 MOTHER, Onset:60 years & older Family history: Alzheimer's disease 03 MOTHER, Onset:60 years & older Family history: Hypertension 09 BROTHER, Onset:30's - 40 Family history: Thyroid disorder daughter, Onset:20's - 25 History of - respiratory disease 09 BROTHER, Onset: No Pertinent Family Hx Physical Exam Vital Signs Vital Signs - First Documented 08/12/20 08/12/20 16:00 16:28 Temp 36.4 Pulse 85 Resp 20 B/P (MAP) 179/116 (137) Pulse Ox 94 O2 Delivery Room Air Capillary Refill : Less Than 3 Seconds Height, Weight, BMI Height: 6'0.00" Weight: 299lbs. 0.0oz. 135.519987mr; 44.00 BMI Method:Stated General Appearance: Anxious, Obese HEENT: PERRL/EOMI, Pharynx Normal, Moist Mucous Membranes Neck: Full Range of Motion, Normal Inspection Respiratory: Chest Non Tender, Lungs Clear, Normal Breath Sounds, No Accessory Muscle Use, No Respiratory Distress Cardiovascular: Regular Rate, Rhythm, No Edema, Normal Peripheral Pulses Gastrointestinal: Normal Bowel Sounds, Non Tender, Soft Extremity: Normal Capillary Refill, Normal Inspection, No Pedal Edema Neurologic/Psychiatric: Alert, Oriented x3 Skin: Normal Color, Warm/Dry Progress/Results/Core Measures Results/Orders Lab Results Laboratory Tests Test 08/12/20 16:15 08/12/20 16:20 Range/Units White Blood Count 5.2 4.3-11.0 10^3/uL Red Blood Count 4.81 3.80-5.11 10^6/uL Hemoglobin 14.3 11.5-16.0 g/dL Hematocrit 45 35-52 % Mean Corpuscular Volume 93 80-99 fL Mean Corpuscular Hemoglobin 30 25-34 pg Mean Corpuscular Hemoglobin Concent 32 32-36 g/dL Red Cell Distribution Width 14.2 10.0-14.5 % Platelet Count 179 130-400 10^3/uL Mean Platelet Volume 9.6 9.0-12.2 fL Immature Granulocyte % (Auto) 1 % Neutrophils (%) (Auto) 52 42-75 % Lymphocytes (%) (Auto) 34 12-44 % Monocytes (%) (Auto) 9 0-12 % Eosinophils (%) (Auto) 4 0-10 % Basophils (%) (Auto) 1 0-10 % Neutrophils # (Auto) 2.7 1.8-7.8 10^3/uL Lymphocytes # (Auto) 1.8 1.0-4.0 10^3/uL Monocytes # (Auto) 0.5 0.0-1.0 10^3/uL Eosinophils # (Auto) 0.2 0.0-0.3 10^3/uL Basophils # (Auto) 0.0 0.0-0.1 10^3/uL Immature Granulocyte # (Auto) 0.0 0.0-0.1 10^3/uL Prothrombin Time 13.8 12.2-14.7 SEC INR Comment 1.0 0.8-1.4 Activated Partial Thromboplast Time 31 24-35 SEC D-Dimer 0.37 0.00-0.49 UG/ML Sodium Level 141 135-145 MMOL/L Potassium Level 3.6 3.6-5.0 MMOL/L Chloride Level 103 98-107 MMOL/L Carbon Dioxide Level 28 21-32 MMOL/L Anion Gap 10 5-14 MMOL/L Blood Urea Nitrogen 10 7-18 MG/DL Creatinine 0.81 0.60-1.30 MG/DL Estimat Glomerular Filtration Rate > 60 BUN/Creatinine Ratio 12 Glucose Level 104 70-105 MG/DL Calcium Level 9.1 8.5-10.1 MG/DL Corrected Calcium 8.9 8.5-10.1 MG/DL Magnesium Level 1.7 1.6-2.4 MG/DL Total Bilirubin 0.4 0.1-1.0 MG/DL Aspartate Amino Transf (AST/SGOT) 30 5-34 U/L Alanine Aminotransferase (ALT/SGPT) 25 0-55 U/L Alkaline Phosphatase 92 40-136 U/L Myoglobin 44.7 10.0-92.0 NG/ML Troponin I 1.047 *H <0.028 NG/ML B-Type Natriuretic Peptide 84.5 <100.0 PG/ML Total Protein 7.2 6.4-8.2 GM/DL Albumin 4.2 3.2-4.5 GM/DL Lipase 20 8-78 U/L Coronavirus 2019 ([place]) Not Detected Not Detecte Micro Results Microbiology 08/12/20 Influenza Types A,B Antigen (BRIAN) - Final, Complete My Orders Orders - STEFAN ROBLES Cbc With Automated Diff (08/12/20 16:26) Magnesium (08/12/20 16:26) Chest 1 View, Ap/Pa Only (08/12/20 16:26) Comprehensive Metabolic Panel (08/12/20 16:26) Myoglobin Serum (08/12/20 16:26) Protime With Inr (08/12/20 16:) Partial Thromboplastin Time (08/12/20 16:) O2 (08/12/20 16:) Monitor-Rhythm Ecg Trace Only (08/12/20 16:) Lipid Panel (08/13/20 06:00) Ed Iv/Invasive Line Start (08/12/20:) Lipase (08/12/20 16:) BNP (08/12/20 16:) Fibrin Degradation Products (08/12/20:) Troponin I (08/12/20:) Aspirin Chewable Tablet (Baby Aspirin Ch (08/12/20 16:30) Covid 19 Inhouse Test (08/12/20 16:) Influenza A And B Antigens (08/12/20 16:26) Nitroglycerin 0.4 Mg Btl 25's (Nitrostat (08/12/20 18:15) Midazolam Injection (Versed Injection) (08/12/20 18:12) Fentanyl Inj (Sublimaze Injection) (08/12/20 18:12) Ns Iv 1000 Ml (Sodium Chloride 0.9%) (08/12/20 18:12) Heparin ([employer]) (Heparin ([employer])) (08/12/20 18:14) Medications Given in ED Current Medications Medications Dose Ordered Sig/Brianna Route Start Time Stop Time Status Last Admin Dose Admin Aspirin 324 mg ONCE ONCE PO 08/12/20 16:30 08/12/20 16:31 DC 08/12/20 17:13 324 MG Vital Signs/I&O 08/12/20 08/12/20 16:00 16:28 Temp 36.4 Pulse 85 Resp 20 B/P (MAP) 179/116 (137) Pulse Ox 94 O2 Delivery Room Air Blood Pressure Mean: 137 Initial ECG Impression Date: Aug 12, 2020 Initial ECG Impression Time: 16:05 Initial ECG Rate: 83 Initial ECG Rhythm: Normal Sinus Initial ECG Intervals: Normal Initial ECG Impression: Normal Initial ECG Comparisson: Unchanged Comment Normal sinus rhythm without clinically relevant ST changes. Diagnostic Imaging Diagonstic Imaging: Xray Plain Films/CT/US/NM/MRI: chest Comments [facility]. [place], [place] NAME: PEYMAN MENDOZA [facility] REC#: [id number] PT STATUS: REG ER : 1955 PHYSICIAN: STEFAN ROBLES MD ADMIT DATE: 08/12/20/ER Signed Date of Exam:08/12/20 CHEST 1 VIEW, AP/PA ONLY Indication: Chest pain Portable chest 5:07 PM Heart size and pulmonary vascularity are normal. Lungs are clear. There are no effusions or pneumothoraces. IMPRESSION: Negative chest Dictated by: Dictated on workstation # [id number] Dict: 08/12/201716 Trans: 08/12/201717 TCB [id number] Interpreted by: JAMES MCKENZIE MD Electronically signed by: JAMES MCKENZIE MD 08/12/201717 Reviewed: Reviewed by Me Departure Communication (Admissions) Time/Spoke to Admitting Phy: 18:[address] Sanchez and she agrees to observe the case. Time/Spoke to Consulting Phy: 18:15 Discussed the case with Dr. Landon and he agrees to take the patient to the [facility] I would like to be the call center support consultant have medicine do the observation. Impression Primary Impression: Unstable angina Additional Impression: Elevated troponin Disposition: ADMITTED INPATIENT Condition: Stable Admissions Decision to Admit Reason: Admit from ER (General) Decision to Admit/Date: Aug 12, 2020 Time/Decision to Admit Time: 17:00 Departure-Patient Inst. Referrals: SONIA MARTIN (PCP) Primary Care Physician SAIDA HAMEED MD (Family) Primary Care Physician STEFAN ROBLES Aug 12, 2020 17:18
[2020-08-12] MEDS ORDERED: MIDAZOLAM 5 MG/5 ML (VERSED) VIAL ONE (18:12)
[2020-08-12] MEDS ORDERED: fentaNYL INJ 100 MCG/2 ML AMP ONE (18:12)
[2020-08-12] MEDS ORDERED: NS IV 1000 ML 1,000 ML ONE (18:12)
[2020-08-12] MEDS ORDERED: HEParin (CATH LAB) 2,000 ML IV ONE (18:14)
[2020-08-12] MEDS ORDERED: NITROGLYCERIN 0.4 MG SL TABS BTL 25'S SL PRN ×2 (18:15→20:45)
[2020-08-12] MEDS ORDERED: LIDOCAINE 1% INJ 20 ML 20 ML VIAL ONE (18:17)
--- NOTE | 2020-08-12 18:46 | Cardiac Procedure Note-CS/ASA ---
Pre-Procedure Note Pre-Op Procedure Note H&P Reviewed The H&P was reviewed, patient examined and no changes noted. Date H&P Reviewed: Aug 12, 2020 Time H&P Reviewed: 18:45 Conscious Sedation Pre-Proced Time 18:45 ASA Score 3 For ASA 3 and 4: Consider anesthesia and medical clearance. Also, for patients with a history of failed moderate sedation consider anesthesia. Airway Lungs Heart ASA score ASA 1: a normal healthy patient ASA 2: a patient with a mild systemic disease (mid diabetes, controlled hypertension, obesity ASA 3: a patient with a severe systemic disease that limits activity (angina, COPD, prior Myocardial infarction) ASA 4: a patient with an incapacitating disease that is a constant threat to life (CHF, renal failure) ASA 5: a moribund patient not expected to survive 24 hrs. (ruptured aneurysm) ASA 6: a declared brain- patient whose organs are being harvested. For emergent operations, add the letter E after the classification Mallampati Classification Grade 2 Sedation Plan Analgesia, Amnesia, Plan communicated to team members, Discussed options with patient/fam, Discussed risks with patient/fam The patient is an appropriate candidate to undergo the planned procedure, sedation, and anesthesia. The patient immediately re-assessed prior to indication. SHIRA PICKENS MD FACP FAC CCDS Aug 12, 2020 18:45
--- NOTE | 2020-08-12 18:51 | Consultation-Cardiology ---
HPI-Cardiology Cardiology Consultation: Date of Consultation 08/12/20 Time Seen by a Provider: 18:40 Date of Admission Attending Physician Erin Mullen MD Facp Fac Ccds Admitting Physician Frank Stroud Consulting Physician ERIN MULLEN MD, MA, FACP, FAC, [facility], CCDS HPI: Chief Complaint: CC: Chest discomfort IJB-Yykvje-[id number] Hx Patient Social History Smoking Status: Former Smoker 2nd Hand Smoke Exposure: Yes Immunizations Up To Date Tetanus Booster (TDap): Unknown Date of Pneumonia Vaccine: Apr 26, 2012 Date of Influenza Vaccine: Feb 24, 2015 Past Medical History PMH As described under Assessment. Family Medical History Family History: Cancer 03 MOTHER, Onset:60 years & older son, Onset:10's - 15 Dementia 03 MOTHER, Onset:60 years & older Family history: Alzheimer's disease 03 MOTHER, Onset:60 years & older Family history: Hypertension 09 BROTHER, Onset:30's - 40 Family history: Thyroid disorder daughter, Onset:20's - 25 History of - respiratory disease 09 BROTHER, Onset: Allergies and Home Medications Allergies Coded Allergies: No Known Drug Allergies (Verified , 04/02/15) Home Medications Albuterol Sulfate 2.5 Mg/3 Ml Vial.neb, 2.5 MG INH Q4H Prescribed by: JAYDEN WELCH on 01/23/191651 Amlodipine Besylate 5 Mg Tablet, 5 MG PO DAILY, (Reported) Apixaban 5 Mg Tablet, 5 MG PO DAILY, (Reported) Aspirin 81 Mg Tablet.dr, 81 MG PO DAILY, (Reported) Furosemide 40 Mg Tablet, 40 MG PO DAILY, (Reported) Levothyroxine Sodium 25 Mcg Tablet, 25 MCG PO DAILY, (Reported) Meclizine HCl 25 Mg Tablet, 25 MG PO TID PRN for DIZZINESS, (Reported) Metoprolol Succinate 50 Mg Tab.er.24h, 50 MG PO DAILY, (Reported) Multivit-Min/FA/Lycopene/Lut 1 Each Tablet, 1 TAB PO DAILY, (Reported) Potassium Chloride 20 Meq Tab.er.prt, 20 MEQ PO DAILY, (Reported) Prednisone 20 Mg Tab, 40 MG PO DAILY Prescribed by: JAYDEN WELCH on 01/23/191651 Simvastatin 20 Mg Tablet, 20 MG PO DAILY, (Reported) LAST FILLED #90 10-21-17 Physical Exam-Cardiology Physical Exam Vital Signs/I&O 08/12/20 08/12/20 08/12/20 16:00 16:28 18:31 Temp 36.4 Pulse 85 74 Resp 20 20 B/P (MAP) 179/116 (137) 116/119 Pulse Ox 94 95 O2 Delivery Room Air Capillary Refill : Less Than 3 Seconds Data Review Labs Laboratory Tests 08/12/20 16:15: White Blood Count 5.2, Red Blood Count 4.81, Hemoglobin 14.3, Hematocrit 45, Mean Corpuscular Volume 93, Mean Corpuscular Hemoglobin 30, Mean Corpuscular Hemoglobin Concent 32, Red Cell Distribution Width 14.2, Platelet Count 179, Mean Platelet Volume 9.6, Immature Granulocyte % (Auto) 1, Neutrophils (%) (Auto) 52, Lymphocytes (%) (Auto) 34, Monocytes (%) (Auto) 9, Eosinophils (%) (Auto) 4, Basophils (%) (Auto) 1, Neutrophils # (Auto) 2.7, Lymphocytes # (Auto) 1.8, Monocytes # (Auto) 0.5, Eosinophils # (Auto) 0.2, Basophils # (Auto) 0.0, Immature Granulocyte # (Auto) 0.0, Prothrombin Time 13.8, INR Comment 1.0, Activated Partial Thromboplast Time 31, D-Dimer 0.37, Sodium Level 141, Potassium Level 3.6, Chloride Level 103, Carbon Dioxide Level 28, Anion Gap 10, Blood Urea Nitrogen 10, Creatinine 0.81, Estimat Glomerular Filtration Rate > 60, BUN/Creatinine Ratio 12, Glucose Level 104, Calcium Level 9.1, Corrected Calcium 8.9, Magnesium Level 1.7, Total Bilirubin 0.4, Aspartate Amino Transf (AST/SGOT) 30, Alanine Aminotransferase (ALT/SGPT) 25, Alkaline Phosphatase 92, Myoglobin 44.7, Troponin I 1.047*H, B-Type Natriuretic Peptide 84.5, Total Protein 7.2, Albumin 4.2, Lipase 20 08/12/20 16:20: Coronavirus 2019 ([place]) Not Detected Microbiology 08/12/20 Influenza Types A,B Antigen (BRIAN) - Final, Complete A/P-Cardiology Assessment/Admission Diagnosis Chest discomfort, chronic and intermittent, noncardiac (based on card cath of 08/30/18 that showed no angiographically significant CAD, LVEF 60-65%, LVEP 15 mmHg) Exertional dyspnea, chronic, multifactorial Palpitations of undetermined etiology (mostly exertional) H/O Paroxysmal atrial fibrillation Eliquis for stroke prophylaxis Chronic abnormal ECG on which an old IMI cannot be excluded Echocardiogram of showed mild LVH and LVEF 60% Hypothyroidism, being treated with thyroid replacement therapy Obesity with a body mass index of 40 Hypertension. Hyperlipidemia. COPD DELMA for which she is non-compliant with therapy Clinical Quality Measures AMI/AHF: ASA po Prior to arrival: ERIN Da Silva MD FACP FAC CCDS Aug 12, 2020 18:51
--- NOTE | 2020-08-12 19:16 | Consultation-Cardiology ---
HPI-Cardiology Cardiology Consultation: Date of Consultation 08/12/20 Time Seen by a Provider: 18:30 Date of Admission Attending Physician Admitting Physician Frank Stroud Consulting Physician SHIRA PICKENS MD, MA, FACP, FACC, FSCAI, CCDS HPI: Chief Complaint: CC: Chest discomfort HPI 65 yo woman with chronic, intermittent chest discomfort who presented to the ER with L parasternal and upper midsternal cp, persistent for a day, mild to mod, waxing and waning, nonradiating, not associated with other symptoms, w/o aggravating or relieving factors, similar to what she has had intermittently for several years. Troponin was elevated. ER diagnosed NSTEMI and asked us in consult. W/u negative for PE> Because of continuing, unstable symptoms, we proceeded with card cath after obtaining an informed consent (see below) Review of Systems-Cardiology Review of Systems Constitutional: malaise, tiredness; No weight loss, No weight gain Eyes: No vision change Ears/Nose/Throat: No ear discharge, No nasal drainage, No recent hearing loss Respiratory: As described under HPI Cardiovascular: As described under HPI Gastrointestinal: No diarrhea, No nausea, No vomiting Genitourinary: No dysuria, No hematuria, No urine frequency changes Musculoskeletal: back pain (chronic) Skin: No rash, No ulcerations Psychiatric/Neurological: No seizure, No focal weakness, No syncope POO-Noxxtm-Nmxetx Hx Patient Social History Smoking Status: Former Smoker 2nd Hand Smoke Exposure: Yes Immunizations Up To Date Tetanus Booster (TDap): Unknown Date of Pneumonia Vaccine: Apr 26, 2012 Date of Influenza Vaccine: Feb 24, 2015 Past Medical History PMH As described under Assessment. Family Medical History Family History: Cancer 03 MOTHER, Onset:60 years & older son, Onset:10's - 15 Dementia 03 MOTHER, Onset:60 years & older Family history: Alzheimer's disease 03 MOTHER, Onset:60 years & older Family history: Hypertension 09 BROTHER, Onset:30's - 40 Family history: Thyroid disorder daughter, Onset:20's - 25 History of - respiratory disease 09 BROTHER, Onset:[place] Allergies and Home Medications Allergies Coded Allergies: No Known Drug Allergies (Verified , 04/02/15) Home Medications Albuterol Sulfate 2.5 Mg/3 Ml Vial.neb, 2.5 MG INH Q4H Prescribed by: JAYDEN WELCH on 01/23/191651 Amlodipine Besylate 5 Mg Tablet, 5 MG PO DAILY, (Reported) Apixaban 5 Mg Tablet, 5 MG PO DAILY, (Reported) Aspirin 81 Mg Tablet.dr, 81 MG PO DAILY, (Reported) Furosemide 40 Mg Tablet, 40 MG PO DAILY, (Reported) Levothyroxine Sodium 25 Mcg Tablet, 25 MCG PO DAILY, (Reported) Meclizine HCl 25 Mg Tablet, 25 MG PO TID PRN for DIZZINESS, (Reported) Metoprolol Succinate 50 Mg Tab.er.24h, 50 MG PO DAILY, (Reported) Multivit-Min/FA/Lycopene/Lut 1 Each Tablet, 1 TAB PO DAILY, (Reported) Potassium Chloride 20 Meq Tab.er.prt, 20 MEQ PO DAILY, (Reported) Prednisone 20 Mg Tab, 40 MG PO DAILY Prescribed by: JAYDEN WELCH on 01/23/191651 Simvastatin 20 Mg Tablet, 20 MG PO DAILY, (Reported) LAST FILLED #90 --18 Patient Home Medication List Home Medication List Reviewed: Yes Physical Exam-Cardiology Physical Exam Vital Signs/I&O 08/12/20 08/12/20 08/12/20 16:00 16:28 18:31 Temp 36.4 Pulse 85 74 Resp 20 20 B/P (MAP) 179/116 (137) 116/119 Pulse Ox 94 95 O2 Delivery Room Air Capillary Refill : Less Than 3 Seconds Constitutional: AAO x 3, well-developed, well-nourished, other (obese) HEENT: PERRL, EOMI; No xanthelasmas are seen Neck: carotid pulses are 2 + bilaterally, with good upstrokes Respiratory: No accessory muscle use; other (good bilateral air entry) Cardiovascular: regular rate-rhythm, S1 and S2, systolic murmur (soft PAWAN at card base) Gastrointestinal: No tender; soft; No guarding, No rebound; audible bowel sounds Extremities: No clubbing, No cyanosis, No significant edema Neurologic/Psychiatric: oriented x 3, other (moves all limbs equally) Skin: No rash on exposed areas, No ulcerations on exposed areas Data Review Labs Laboratory Tests 08/12/20 16:15: White Blood Count 5.2, Red Blood Count 4.81, Hemoglobin 14.3, Hematocrit 45, Me an Corpuscular Volume 93, Mean Corpuscular Hemoglobin 30, Mean Corpuscular Hemoglobin Concent 32, Red Cell Distribution Width 14.2, Platelet Count 179, Mean Platelet Volume 9.6, Immature Granulocyte % (Auto) 1, Neutrophils (%) (Auto) 52, Lymphocytes (%) (Auto) 34, Monocytes (%) (Auto) 9, Eosinophils (%) (Auto) 4, Basophils (%) (Auto) 1, Neutrophils # (Auto) 2.7, Lymphocytes # (Auto) 1.8, Monocytes # (Auto) 0.5, Eosinophils # (Auto) 0.2, Basophils # (Auto) 0.0, Immature Granulocyte # (Auto) 0.0, Prothrombin Time 13.8, INR Comment 1.0, Activated Partial Thromboplast Time 31, D-Dimer 0.37, Sodium Level 141, Potassium Level 3.6, Chloride Level 103, Carbon Dioxide Level 28, Anion Gap 10, Blood Urea Nitrogen 10, Creatinine 0.81, Estimat Glomerular Filtration Rate > 60, BUN/Creatinine Ratio 12, Glucose Level 104, Calcium Level 9.1, Corrected Calcium 8.9, Magnesium Level 1.7, Total Bilirubin 0.4, Aspartate Amino Transf (AST/SGOT) 30, Alanine Aminotransferase (ALT/SGPT) 25, Alkaline Phosphatase 92, Myoglobin 44.7, Troponin I 1.047*H, B-Type Natriuretic Peptide 84.5, Total Protein 7.2, Albumin 4.2, Lipase 20 08/12/20 16:20: Coronavirus 2019 ([place]) Not Detected Microbiology 08/12/20 Influenza Types A,B Antigen (BRIAN) - Final, Complete Laboratory Tests 08/12/20 16:15 A/P-Cardiology Assessment/Admission Diagnosis Chest discomfort,noncardiac - card cath of 08/12/20 showed no angiographically significant CAD, LVEF 60%, LVEP 8 mmHg (card cath for similar symptoms in August 2018 was also negative for any CAD) Elevated troponin on 08/12/20 likely due to transient hypoxia due to obesity- hypoventilation syndrome and untreated DELMA due to noncompliance (type 2 PR) H/o paroxysmal atrial fibrillation - Eliquis for stroke prophylaxis Chronic abnormal ECG on which an old IMI cannot be excluded Hypothyroidism, being treated with thyroid replacement therapy Obesity with a body mass index of 44 H/o hypertension H/o hyperlipidemia Discussion and Recomendations * Continue apixaban for stroke prophylaxis * Advised compliance with treatment of DELMA * Monitor labs Clinical Quality Measures AMI/AHF: ASA po Prior to arrival: SHIRA Da Silva MD FACP FAC CCDS Aug 12, 2020 19:16
[2020-08-12] MEDS ORDERED: NS IV 1000 ML 1,000 ML IV SCH (19:30)
[2020-08-12] MEDS ORDERED: ACETAMINOPHEN 325 MG TABLET PO PRN (19:30)
[2020-08-12] MEDS ORDERED: oxyCODONE/APAP 5/325MG (PERCOCET 5) TABLET PO PRN (19:30)
[2020-08-12] MEDS ORDERED: PATIENT MAY USE OWN MEDS, ALL PO SCH (19:30)
[2020-08-12 20:08] VITALS: BP 179/119
[2020-08-12] MEDS ORDERED: morphine INJ 4 MG/ML 1 ML (VIAL/SYRINGE) IV PRN (20:45)
[2020-08-12] MEDS ORDERED: ONDANSETRON 4 MG/2 ML (SDV) Z0FRAN IV PRN (20:45)
[2020-08-12 21:00] VITALS: BP 132/67
[2020-08-12] MEDS: APIXABAN 5 MG (ELIQUIS) TABLET PO SCH (21:56)
[2020-08-12 22:00] VITALS: BP 148/80
[2020-08-12] MEDS: RT-ALBUTEROL SULF 2.5 MG/3 ML PRE-MIX VIAL INH SCH (22:23)
[2020-08-12 23:00] VITALS: BP 151/63
[2020-08-13] VITALS: BP 137/84
[2020-08-13] MEDS: RT-ALBUTEROL SULF 2.5 MG/3 ML PRE-MIX VIAL INH SCH ×3 (02:08→10:24)
[2020-08-13 03:51] LABS: BASOPHILS % (AUTO) 0 % (0-10); EOSINOPHILS # (AUTO) 0.2 10^3/uL (0.0-0.3); EOSINOPHILS % (AUTO) 4 % (0-10); HEMATOCRIT 39 % (35-52); HEMOGLOBIN 12.6 g/dL (11.5-16.0); LYMPHOCYTES # (AUTO) 1.6 10^3/uL (1.0-4.0); LYMPHOCYTES % (AUTO) 35 % (12-44); MEAN CORPUSCULAR HEMOGLOBIN 30 pg (25-34); MEAN CORPUSCULAR HGB CONC 32 g/dL (32-36); MEAN CORPUSCULAR VOLUME 93 fL (80-99); MEAN PLATELET VOLUME 9.5 fL (9.0-12.2); MONOCYTES # (AUTO) 0.4 10^3/uL (0.0-1.0); MONOCYTES % (AUTO) 10 % (0-12); NEUTROPHILS # (AUTO) 2.4 10^3/uL (1.8-7.8); NEUTROPHILS % (AUTO) 51 % (42-75); PLATELET COUNT 151 10^3/uL (130-400); WHITE BLOOD COUNT 4.6 10^3/uL (4.3-11.0)
[2020-08-13 03:57] LABS: ALBUMIN 3.5 GM/DL (3.2-4.5); CHLORIDE 106 MMOL/L (98-107); POTASSIUM 3.8 MMOL/L (3.6-5.0); SODIUM 143 MMOL/L (135-145)
[2020-08-13 03:58] LABS: CALCIUM 8.5 MG/DL (8.5-10.1)
[2020-08-13 03:59] LABS: TRIGLYCERIDES 126 MG/DL (<150); VLDL CHOLESTEROL 25 MG/DL (5-40)
[2020-08-13 04:00] VITALS: BP 128/61
[2020-08-13 04:00] LABS: GLUCOSE 112 MG/DL (70-105)
[2020-08-13 04:01] LABS: BILIRUBIN,TOTAL 0.4 MG/DL (0.1-1.0); CARBON DIOXIDE 25 MMOL/L (21-32)
[2020-08-13 04:03] LABS: ALKALINE PHOSPHATASE 70 U/L (40-136); CREATININE SERUM 0.76 MG/DL (0.60-1.30); GFR ESTIMATED > 60
[2020-08-13 04:04] LABS: BUN/CREATININE RATIO 12; CHOLESTEROL 166 MG/DL (< 200)
[2020-08-13 04:06] LABS: ALANINE AMINOTRANSFERASE 20 U/L (0-55); HDL CHOLESTEROL 37 MG/DL (40-60); MAGNESIUM 1.8 MG/DL (1.6-2.4)
[2020-08-13] MEDS: APIXABAN 5 MG (ELIQUIS) TABLET PO SCH (07:41)
[2020-08-13 07:45] VITALS: BP 130/70
--- NOTE | 2020-08-13 08:49 | Progress Note - Cardiology ---
Cardiology SOAP Progress Note Subjective: Lying in bed Objective: I&O/Vital Signs 08/12/20 08/12/20 08/12/20 08/12/20 21:00 22:00 22:24 23:00 Pulse 74 73 73 Resp 17 28 28 B/P (MAP) 132/67 (88) 148/80 (102) 151/63 (92) Pulse Ox 99 O2 Delivery Room Air Room Air Room Air Room Air 08/13/20 08/13/20 08/13/20 08/13/20 00:00 01:46 02:08 04:00 Temp 36.8 36.0 Pulse 74 77 68 Resp 22 20 B/P (MAP) 137/84 (101) 128/61 (83) Pulse Ox 94 98 93 O2 Delivery Room Air Room Air Room Air 08/13/20 08/13/20 08/13/20 08/13/20 07:30 07:45 08:18 08:32 Temp 36.9 Pulse 75 Resp 20 B/P (MAP) 130/70 (90) Pulse Ox 97 94 O2 Delivery Room Air Room Air 08/13/20 00:00 Intake Total 200 ml Output Total 450 ml Balance -250 ml Weight (Pounds): 299 Weight (Ounces): 0.0 Weight (Calculated Kilograms): 135.005912 Side: right Groin site without hematoma: Yes Condition: DP/PT pulses palpable, extremity w/d/p Bruising: mild bruising Constitutional: AAO x 3, well-developed, well-nourished, other (obese) Respiratory: No accessory muscle use; other (good bilateral air entry) Cardiovascular: regular rate-rhythm, S1 and S2, systolic murmur (soft PAWAN at card base) Gastrointestional: No tender; soft; No guarding, No rebound; audible bowel sounds Extremities: No clubbing, No cyanosis, No significant edema Neurologic/Psychiatric: oriented x 3, other (moves all limbs equally) Skin: No rash on exposed areas, No ulcerations on exposed areas Results/Procedures: Labs Laboratory Tests 08/12/20 16:15: White Blood Count 5.2, Red Blood Count 4.81, Hemoglobin 14.3, Hematocrit 45, Mean Corpuscular Volume 93, Mean Corpuscular Hemoglobin 30, Mean Corpuscular Hemoglobin Concent 32, Red Cell Distribution Width 14.2, Platelet Count 179, Mean Platelet Volume 9.6, Immature Granulocyte % (Auto) 1, Neutrophils (%) (Auto) 52, Lymphocytes (%) (Auto) 34, Monocytes (%) (Auto) 9, Eosinophils (%) (Auto) 4, Basophils (%) (Auto) 1, Neutrophils # (Auto) 2.7, Lymphocytes # (Auto) 1.8, Monocytes # (Auto) 0.5, Eosinophils # (Auto) 0.2, Basophils # (Auto) 0.0, Immature Granulocyte # (Auto) 0.0, Prothrombin Time 13.8, INR Comment 1.0, Activated Partial Thromboplast Time 31, D-Dimer 0.37, Sodium Level 141, Potassium Level 3.6, Chloride Level 103, Carbon Dioxide Level 28, Anion Gap 10, Blood Urea Nitrogen 10, Creatinine 0.81, Estimat Glomerular Filtration Rate > 60, BUN/Creatinine Ratio 12, Glucose Level 104, Calcium Level 9.1, Corrected Calcium 8.9, Magnesium Level 1.7, Total Bilirubin 0.4, Aspartate Amino Transf (AST/SGOT) 30, Alanine Aminotransferase (ALT/SGPT) 25, Alkaline Phosphatase 92, Myoglobin 44.7, Troponin I 1.047*H, B-Type Natriuretic Peptide 84.5, Total Protein 7.2, Albumin 4.2, Lipase 20 08/12/20 16:20: Coronavirus 2019 ([place]) Not Detected 08/13/20 03:37: White Blood Count 4.6, Red Blood Count 4.21, Hemoglobin 12.6, Hematocrit 39, Mean Corpuscular Volume 93, Mean Corpuscular Hemoglobin 30, Mean Corpuscular Hemoglobin Concent 32, Red Cell Distribution Width 14.4, Platelet Count 151, Mean Platelet Volume 9.5, Immature Granulocyte % (Auto) 0, Neutrophils (%) (Auto) 51, Lymphocytes (%) (Auto) 35, Monocytes (%) (Auto) 10, Eosinophils (%) (Auto) 4, Basophils (%) (Auto) 0, Neutrophils # (Auto) 2.4, Lymphocytes # (Auto) 1.6, Monocytes # (Auto) 0.4, Eosinophils # (Auto) 0.2, Basophils # (Auto) 0.0, Immature Granulocyte # (Auto) 0.0, Sodium Level 143, Potassium Level 3.8, Chloride Level 106, Carbon Dioxide Level 25, Anion Gap 12, Blood Urea Nitrogen 9, Creatinine 0.76, Estimat Glomerular Filtration Rate > 60, BUN/Creatinine Ratio 12, Glucose Level 112H, Calcium Level 8.5, Corrected Calcium 8.9, Magnesium Level 1.8, Total Bilirubin 0.4, Aspartate Amino Transf (AST/SGOT) 25, Alanine Aminotransferase (ALT/SGPT) 20, Alkaline Phosphatase 70, Total Protein 6.0L, Albumin 3.5, Triglycerides Level 126, Cholesterol Level 166, LDL Cholesterol Direct 119, VLDL Cholesterol 25, HDL Cholesterol 37L, Thyroid Stim ulating Hormone (TSH) 3.09 Microbiology 08/12/20 Influenza Types A,B Antigen (BRIAN) - Final, Complete Laboratory Tests 08/12/20 16:15 08/13/20 03:37 Procedures S/P cardiac cath on 08-12-20. Please refer to cardiac cath report per Dr. Mullen for details. A/P: Assessment: Chest discomfort,noncardiac - card cath of 08/12/20 showed no angiographically significant CAD, LVEF 60%, LVEP 8 mmHg (card cath for similar symptoms in August 2018 was also negative for any CAD) Elevated troponin on 08/12/20 likely due to transient hypoxia due to obesity- hypoventilation syndrome and untreated DELMA due to noncompliance (type 2 AK) H/o paroxysmal atrial fibrillation - Eliquis for stroke prophylaxis Chronic abnormal ECG on which an old IMI cannot be excluded Hypothyroidism, being treated with thyroid replacement therapy Obesity with a body mass index of 44 H/o hypertension H/o hyperlipidemia Plan: * Continue apixaban for stroke prophylaxis * Advised compliance with treatment of DELMA * OK to discharge home from cardiac stand point with out pt f/u Clinical Quality Measures AMI/AHF: ASA po Prior to arrival: ESTELA Pineda Aug 13, 2020 08:49
--- NOTE | 2020-08-13 10:42 | Progress Note - Cardiology ---
Cardiology SOAP Progress Note Subjective: No cp or palp or syncope or shortness of breath at rest Denies malaise or weakness or groin / leg discomfort No swelling No n/v/d Objective: I&O/Vital Signs 08/12/20 08/13/20 08/13/20 08/13/20 23:00 00:00 01:46 02:08 Temp 36.8 Pulse 73 74 77 Resp 28 22 B/P (MAP) 151/63 (92) 137/84 (101) Pulse Ox 94 98 O2 Delivery Room Air Room Air Room Air 08/13/20 08/13/20 08/13/20 08/13/20 04:00 07:30 07:45 08:14 Temp 36.0 Pulse 68 75 81 Resp 20 20 B/P (MAP) 128/61 (83) 130/70 (90) Pulse Ox 93 97 94 O2 Delivery Room Air Room Air 08/13/20 08/13/20 08/13/20 08:18 08:32 10:25 Temp 36.9 Pulse Ox 98 O2 Delivery Room Air Room Air 08/13/20 00:00 Intake Total 200 ml Output Total 450 ml Balance -250 ml Weight (Pounds): 299 Weight (Ounces): 0.0 Weight (Calculated Kilograms): 135.664423 Side: right Groin site without hematoma: Yes Condition: DP/PT pulses palpable, extremity w/d/p Bruising: mild bruising Constitutional: AAO x 3, well-developed, well-nourished, other (obese) Respiratory: No accessory muscle use; other (good bilateral air entry) Cardiovascular: regular rate-rhythm, S1 and S2, systolic murmur (soft PAWAN at card base) Gastrointestional: No tender; soft; No guarding, No rebound; audible bowel sounds Extremities: No clubbing, No cyanosis, No significant edema Neurologic/Psychiatric: oriented x 3, other (moves all limbs equally) Skin: No rash on exposed areas, No ulcerations on exposed areas Results/Procedures: Labs Laboratory Tests 08/12/20 16:15: White Blood Count 5.2, Red Blood Count 4.81, Hemoglobin 14.3, Hematocrit 45, Mean Corpuscular Volume 93, Mean Corpuscular Hemoglobin 30, Mean Corpuscular Hemoglobin Concent 32, Red Cell Distribution Width 14.2, Platelet Count 179, Mean Platelet Volume 9.6, Immature Granulocyte % (Auto) 1, Neutrophils (%) (Auto) 52, Lymphocytes (%) (Auto) 34, Monocytes (%) (Auto) 9, Eosinophils (%) (Auto) 4, Basophils (%) (Auto) 1, Neutrophils # (Auto) 2.7, Lymphocytes # (Auto) 1.8, Monocytes # (Auto) 0.5, Eosinophils # (Auto) 0.2, Basophils # (Auto) 0.0, Immature Granulocyte # (Auto) 0.0, Prothrombin Time 13.8, INR Comment 1.0, Activated Partial Thromboplast Time 31, D-Dimer 0.37, Sodium Level 141, Potassium Level 3.6, Chloride Level 103, Carbon Dioxide Level 28, Anion Gap 10, Blood Urea Nitrogen 10, Creatinine 0.81, Estimat Glomerular Filtration Rate > 60, BUN/Creatinine Ratio 12, Glucose Level 104, Calcium Level 9.1, Corrected Calcium 8.9, Magnesium Level 1.7, Total Bilirubin 0.4, Aspartate Amino Transf (AST/SGOT) 30, Alanine Aminotransferase (ALT/SGPT) 25, Alkaline Phosphatase 92, Myoglobin 44.7, Troponin I 1.047*H, B-Type Natriuretic Peptide 84.5, Total Protein 7.2, Albumin 4.2, Lipase 20 08/12/20 16:20: Coronavirus 2019 ([place]) Not Detected 08/13/20 03:37: White Blood Count 4.6, Red Blood Count 4.21, Hemoglobin 12.6, Hematocrit 39, M rita Corpuscular Volume 93, Mean Corpuscular Hemoglobin 30, Mean Corpuscular Hemoglobin Concent 32, Red Cell Distribution Width 14.4, Platelet Count 151, Mean Platelet Volume 9.5, Immature Granulocyte % (Auto) 0, Neutrophils (%) (Auto) 51, Lymphocytes (%) (Auto) 35, Monocytes (%) (Auto) 10, Eosinophils (%) (Auto) 4, Basophils (%) (Auto) 0, Neutrophils # (Auto) 2.4, Lymphocytes # (Auto) 1.6, Monocytes # (Auto) 0.4, Eosinophils # (Auto) 0.2, Basophils # (Auto) 0.0, Immature Granulocyte # (Auto) 0.0, Sodium Level 143, Potassium Level 3.8, Chloride Level 106, Carbon Dioxide Level 25, Anion Gap 12, Blood Urea Nitrogen 9, Creatinine 0.76, Estimat Glomerular Filtration Rate > 60, BUN/Creatinine Rati o 12, Glucose Level 112H, Calcium Level 8.5, Corrected Calcium 8.9, Magnesium L evel 1.8, Total Bilirubin 0.4, Aspartate Amino Transf (AST/SGOT) 25, Alanine Aminotransferase (ALT/SGPT) 20, Alkaline Phosphatase 70, Total Protein 6.0L, Albumin 3.5, Triglycerides Level 126, Cholesterol Level 166, LDL Cholesterol Direct 119, VLDL Cholesterol 25, HDL Cholesterol 37L, Thyroid Stimulating Hormone (TSH) 3.09 Microbiology 08/12/20 Influenza Types A,B Antigen (BRIAN) - Final, Complete Laboratory Tests 08/12/20 16:15 08/13/20 03:37 A/P: Assessment: Chest discomfort,noncardiac - card cath of 08/12/20 showed no angiographically significant CAD, LVEF 60%, LVEP 8 mmHg (card cath for similar symptoms in August 2018 was also negative for any CAD) Elevated troponin on 08/12/20 likely due to transient hypoxia due to obesity- hypoventilation syndrome and untreated DELMA due to noncompliance (type 2 [place]) H/o paroxysmal atrial fibrillation - Eliquis for stroke prophylaxis Chronic abnormal ECG on which an old IMI cannot be excluded Hypothyroidism, being treated with thyroid replacement therapy Obesity with a body mass index of 44 H/o hypertension H/o hyperlipidemia Plan: * Continue apixaban for stroke prophylaxis * Advised compliance with treatment of DELMA * OK to discharge home from cardiac stand point with out pt f/u * I discussed the findings of card cath and her cardiac w/u in detail with her and answered questions * Risk factor modification reviewed and questions answered Clinical Quality Measures AMI/AHF: ASA po Prior to arrival: SHIRA Da Silva MD FACP FAC CCDS Aug 13, 2020 10:42
--- NOTE | 2020-08-13 11:38 | Short Stay Summary-Hospitalist ---
CURRY BOJORQUEZ, MED STUDENT 08/13/20 1137: History of Present Illness HPI/Chief Complaint Shannon Owen is a 65 y/o F w/ PMH of COPD, DELMA not on CPAP, a-fib, CAD who presented to the ED with left sided parasternal and upper midsternal chest pain. The chest pain was described as persistent pressure that waxed and waned in intensity. The pain did not radiate anywhere and was not associated with any shortness of breath or sweating. The pain started in the morning and nothing made the pain better but moving made the pain worse. In the ED the patient was f ound to have an elevated troponin at 1.047 but the EKG was unclear and a new MD was difficult to rule out. Her D-dimer was within normal limits. She was subsequently taken to the cardiac laboratory inspector for angiogram which reveal no signficiant change from her previous catheterization 1.5 years ago. She likely had a type 2 NSTEMI secondary to her DELMA and obesity hypoventilation syndrome. Her chest pain had resolved the morning after the angiogram and she has no other symptoms. Source: patient Exam Limitations: no limitations Date Seen 08/13/20 Attending Physician Gail Castro David M Pa Referring Physician Date of Admission Aug 12, 2020 at 19:00 Home Medications & Allergies Home Medications Reviewed patient Home Medication Reconciliation performed by pharmacy medication reconciliations switch technician and/or nursing. Patients Allergies have been reviewed. Allergies Allergies Coded Allergies No Known Drug Allergies ([id number]/8/15) Past Guwdxud-Wquqaw-Uhjulj Hx Patient Social History Alcohol Use: Denies Use Recreational Drug Use: No Smoking Status: Former Smoker Type Used: Cigarettes 2nd Hand Smoke Exposure: Yes Recent Foreign Travel: No Contact w/other who traveled: No Recent Hopitalizations: No Recent Infectious Disease Expo: No Immunizations Up To Date Tetanus Booster (TDap): Unknown Pediatric: No Date of Pneumonia Vaccine: Apr 26, 2012 Date of Influenza Vaccine: Feb 24, 2015 Seasonal Allergies Seasonal Allergies: No Past Medical History Surgeries: Appendectomy, Cardiac, Ear Surgery, Hysterectomy, Orthopedic, Tubal Ligation, Vascular Surgery Currently Using CPAP: No Currently Using BIPAP: No Cardiac: Atrial Fibrillation, Coronary Artery Disease, Heart Attack, High Cholesterol, Hypertension, Irregular Heartbeat, Peripheral Vascular Neurological: Headaches /Migraines 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: No Sexually Transmitted Disease: No HIV/AIDS: No Female 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 Menopausal Musculoskeletal: Arthritis, Chronic Back Pain, Fractures Endocrine: Hypothyroidsim Loss of Vision: Denies Hearing Impairment: Denies Psychosocial: Anxiety, Bipolar, Depression History of Blood Disorders: No Adverse Reaction to Blood Ceron: No Family History Cancer 03 MOTHER, Onset:60 years & older son, Onset:10's - 15 Dementia 03 MOTHER, Onset:60 years & older Family history: Alzheimer's disease 03 MOTHER, Onset:60 years & older Family history: Hypertension 09 BROTHER, Onset:30's - 40 Family history: Thyroid disorder daughter, Onset:20's - 25 History of - respiratory disease 09 BROTHER, Onset: No Pertinent Family Hx Review of Systems Constitutional: no symptoms reported EENTM: no symptoms reported Respiratory: no symptoms reported Cardiovascular: no symptoms reported Gastrointestinal: no symptoms reported Genitourinary: no symptoms reported Musculoskeletal: no symptoms reported Skin: no symptoms reported Psychiatric/Neurological: No Symptoms Reported Physical Exam Physical Exam Vital Signs Vital Signs - First Documented 08/12/20 08/12/20 16:00 16:28 Temp 36.4 Pulse 85 Resp 20 B/P (MAP) 179/116 (137) Pulse Ox 94 O2 Delivery Room Air Capillary Refill : Less Than 3 Seconds Height, Weight, BMI Height: 6'0.00" Weight: 299lbs. 0.0oz. [id number]; 43.02 BMI Method:Stated General Appearance: No Apparent Distress, WD/WN, Anxious, Obese Eyes: Bilateral Eye Normal Inspection, Bilateral Eye EOMI HEENT: PERRL/EOMI, Pharynx Normal, Moist Mucous Membranes Neck: Full Range of Motion, Normal Inspection Respiratory: Chest Non Tender, Lungs Clear, Normal Breath Sounds, No Accessory Muscle Use, No Respiratory Distress Cardiovascular: Regular Rate, Rhythm, No Edema, Normal Peripheral Pulses Gastrointestinal: Normal Bowel Sounds, Non Tender, Soft Rectal: Deferred Extremity: Normal Capillary Refill, Normal Inspection, No Pedal Edema Neurologic/Psychiatric: Alert, Oriented x3 Skin: Normal Color, Warm/Dry Results Results/Procedures Labs Laboratory Tests 08/12/20 16:15 08/13/20 03:37 Patient resulted labs reviewed. Imaging: Reviewed Imaging Films, Reviewed Imaging Report Short Stay Diagnosis Discharge Diagnosis-Short Stay Admission Diagnosis Unstable angina Final Discharge Diagnosis NSTEMI Conclusion Plan Shannon Grace is a 65 y/o F w/ PMH of DELMA, CAD who presented for chest pain likely 2/2 to a type 2 NSTEMI 2/2 to her untreated DELMA and obesity hypoventilation syndrome #CAD #NSTEMI - Cardiac cathereterization consistent w/ previous cardiac catheretization in 2019; no intervention performed - Troponin 1.047 on admission, EKG unclear - Chest pain resolved within 24 hours of catheterization Plan: > Likely type 2 NTSEMI > Continue Aspirin > Continue Statin > Has a f/u o/p w/ pulmonology for a sleep study and to get a CPAP machine setup #DELMA - Previously had CPAP but gets claustrophobic with use - No longer has machine at home Plan: > Has an o/p pulmonology appointment for a sleep study and to get a CPAP machine setup #A-fib Plan: > Continue DUST BOX TENDER medications Clinical Quality Measures AMI/AHF: ASA po Prior to arrival: No GAIL CASTRO DO 08/14/20 0616: History of Present Illness HPI/Chief Complaint CC: Chest pain HPI: This is a 65yoWF with a hx of HTN and untreated sleep apnea who presented with chest pain and elevated troponin. Pt underwent cardiac cath showing no significant stenosis so a type 2 MD was diagnosed. She is ready to go home, no medication changes and we will reschedule her Dr. Mullen appointment, she was to see him and rescheduled for a month later. Sleep study will be arranged. Source: patient Exam Limitations: no limitations Time Seen by a Provider: 11:00 Past Bkxqwnu-Vtoeon-Vjqihs Hx Past Med/Social Hx: Reviewed Nursing Past Med/Soc Hx, Reviewed and Corrections made Patient Social History Marrital Status: Family History Cancer 03 MOTHER, Onset:60 years & older son, Onset:10's - 15 Dementia 03 MOTHER, Onset:60 years & older Family history: Alzheimer's disease 03 MOTHER, Onset:60 years & older Family history: Hypertension 09 BROTHER, Onset:30's - 40 Family history: Thyroid disorder daughter, Onset:20's - 25 History of - respiratory disease 09 BROTHER, Onset:[place] Review of Systems Constitutional: see HPI Respiratory: dyspnea on exertion Physical Exam Physical Exam General Appearance: No Apparent Distress, WD/WN, Chronically ill, Obese Respiratory: Lungs Clear Cardiovascular: Regular Rate, Rhythm Short Stay Diagnosis Discharge Diagnosis-Short Stay Admission Diagnosis Chest pain with normal cath Type 2 MD DELMA untreated Final Discharge Diagnosis Chest pain with normal cath Type 2 MD DELMA untreated Conclusion Plan DC Supervisory-Addendum Brief Verification & Attestation Participated in pt care: history, MDM, physical Personally performed: exam, history, MDM, supervision of care Care discussed with: Medical Student Procedures: n/a Results interpretation: Verified all documentation Verification and Attestation of Medical Student E/M Service A medical student performed and documented this service in my presence. I reviewed and verified all information documented by the medical student and made modifications to such information, when appropriate. I personally performed the physical exam and medical decision making. Gail Castro, Aug 14, 2020,06:16 CURRY BOJORQUEZ, MED STUDENT Aug 13, 2020 11:37 GAIL CASTRO DO Aug 14, 2020 06:16
== END 2020-08-13 11:00 | disposition home or self-care (01) ==
LOC: EDUNIT# 15:52 → ER 15:54 → CATH 18:23 → CSD 19:00
PROVIDERS: ADMIT Internal Medicine; ATTEND Internal Medicine
DX: R07.2 Precordial pain (principal); I21.A1 Myocardial infarction type 2; E03.9 Hypothyroidism, unspecified; I48.0 Paroxysmal atrial fibrillation; J44.9 Chronic obstructive pulmonary disease, unspecified; E78.00 Pure hypercholesterolemia, unspecified; G47.33 Obstructive sleep apnea (adult) (pediatric); I11.9 Hypertensive heart disease without heart failure; E66.9 Obesity, unspecified; I25.10 Atherosclerotic heart disease of native coronary artery without angina pectoris; M19.90 Unspecified osteoarthritis, unspecified site; G89.29 Other chronic pain; M54.9 Dorsalgia, unspecified; Z87.891 Personal history of nicotine dependence; Z90.710 Acquired absence of both cervix and uterus; Z98.51 Tubal ligation status; Z98.890 Other specified postprocedural states; Z90.89 Acquired absence of other organs; Z87.81 Personal history of (healed) traumatic fracture; Z80.9 Family history of malignant neoplasm, unspecified; Z20.822 Contact with and (suspected) exposure to COVID-19; Z79.01 Long term (current) use of anticoagulants; Z68.44 Body mass index [BMI] 60.0-69.9, adult; Z79.82 Long term (current) use of aspirin; Z79.890 Hormone replacement therapy
CPT/HCPCS: 71045; 80053 ×2; 80061; 83690; 83735 ×2; 83874; 83880; 84443; 84484; 85025 ×2; 85379; 85610; 85730; 87804; 93005; 93041; 93306; 93458; 94640 ×2; 94760; 99285; C1760; C1894; U0002; 36415; 87635

== ENCOUNTER 2020-12-24 11:43 | Emergency (ER) | payer MEDICARE, MEDICAID ==
[~2020-12-24] VITALS: Ht 177.8 cm; Wt 140.6 kg
[~2020-12-24 11:43] MED LIST changes: -ETOD400T PO; +ETOD400T3 PO; -SULF1TAB35 PO; +SULF1TAB38 PO
[2020-12-24 11:47] VITALS: BP 139/98
[2020-12-24] MEDS ORDERED: meTOproloL SUCCINATE 50 MG (TOPROL XL) TAB PO STA (12:09)
[2020-12-24] MEDS ORDERED: MECLIZINE 25 MG (ANTIVERT) TAB PO STA (12:09)
[2020-12-24] MEDS ORDERED: NS IV 1000 ML 1,000 ML IV SCH (12:15)
[2020-12-24 12:21] LABS: BASOPHILS % (AUTO) 0 % (0-10); EOSINOPHILS # (AUTO) 0.2 10^3/uL (0.0-0.3); EOSINOPHILS % (AUTO) 3 % (0-10); HEMATOCRIT 45 % (35-52); HEMOGLOBIN 14.4 g/dL (11.5-16.0); LYMPHOCYTES # (AUTO) 1.6 10^3/uL (1.0-4.0); LYMPHOCYTES % (AUTO) 31 % (12-44); MEAN CORPUSCULAR HEMOGLOBIN 30 pg (25-34); MEAN CORPUSCULAR HGB CONC 32 g/dL (32-36); MEAN CORPUSCULAR VOLUME 93 fL (80-99); MEAN PLATELET VOLUME 9.9 fL (9.0-12.2); MONOCYTES # (AUTO) 0.4 10^3/uL (0.0-1.0); MONOCYTES % (AUTO) 9 % (0-12); NEUTROPHILS # (AUTO) 2.9 10^3/uL (1.8-7.8); NEUTROPHILS % (AUTO) 56 % (42-75); PLATELET COUNT 184 10^3/uL (130-400); WHITE BLOOD COUNT 5.1 10^3/uL (4.3-11.0)
[2020-12-24 12:23] LABS: ALBUMIN 3.9 GM/DL (3.2-4.5)
[2020-12-24 12:24] LABS: POTASSIUM 3.4 MMOL/L (3.6-5.0)
[2020-12-24 12:25] LABS: CALCIUM 9.5 MG/DL (8.5-10.1)
[2020-12-24 12:28] LABS: BILIRUBIN,TOTAL 0.4 MG/DL (0.1-1.0); PROTHROMBIN TIME PATIENT 13.6 SEC (12.2-14.7)
--- NOTE | 2020-12-24 12:29 | Diagnostic Imaging Report ---
EXAMINATION: Chest 1 view HISTORY: Chest pain COMPARISON: 08/12/2020 FINDINGS: The lungs are clear without edema or pneumonia. No pleural effusion or pneumothorax. Heart size is mildly enlarged. IMPRESSION: 1. Clear lungs. Dictated by: Dictated on workstation # [id number]
[2020-12-24 12:30] LABS: CREATININE SERUM 0.82 MG/DL (0.60-1.30)
[2020-12-24 12:32] LABS: MAGNESIUM 1.7 MG/DL (1.6-2.4)
--- NOTE | 2020-12-24 12:51 | ED General ---
General Chief Complaint: Dizziness/Syncope Stated Complaint: DIZZINESS Nursing Triage Note: PATIENT ARRIVES FROM [facility] VIA EMS. EMS HAS ESTABLISHED 20 GUAGE IV ACCESS IN LEFT FOREARM AREA. PATIENT COMPLAINT IS DIZZINESS AND NAUSEA SHE STATES HAS BEEN PRESENT SINCE WEDNESDAY. SHE DENIES FEVER. EN ROUTE AN EKG WAS PREFORMED AND 324MG OF ASA WERE GIVEN PER EMS REPORT. PATIENT DENIES ANY CHEST PAIN. RATING HER PAIN AT A 0/10 AT THIS TIME. History of Present Illness Date Seen by Provider: Dec 24, 2020 Time Seen by Provider: 11:47 Initial Comments 65-year-old female presents via EMS after going to [facility] for vertigo. She feels as though the room is spinning around her. She denies chest pain. She reports her symptoms have been present since 12/20/2020. She takes meclizine 3 times daily, she has been doing this for several years and not because she has vertigo daily. No provider has never told her to stop taking the meclizine. She reports the vertigo is pretty consistent, especially if she is standing. It improves if she lies down. She has had no respiratory congestion or cough. She denies sinus symptoms or ear pain. She did have an upper respiratory infection approximately 2 weeks ago. She was seen at [facility] and there are concerns over her EKG being "abonrmally normal" and EMS was called. At times the patient reports nausea associated with the dizziness, however at this time she is denying any nausea. Timing/Duration: 3-4 Days Severity: Mild Associated Systoms: Denies Symptoms; No Chest Pain, No Loss of Appetite, No Nausea/Vomiting, No Shortness of Air, No Syncope, No Weakness Allergies and Home Medications Allergies Coded Allergies: No Known Drug Allergies (Verified , 04/02/15) Home Medications Albuterol Sulfate 2.5 Mg/3 Ml Vial.neb, 2.5 MG INH Q4H Prescribed by: JAYDEN WELCH on 01/23/19 4361 Amlodipine Besylate 5 Mg Tablet, 5 MG PO DAILY, (Reported) Apixaban 5 Mg Tablet, 5 MG PO DAILY, (Reported) Aspirin 81 Mg Tablet.dr, 81 MG PO DAILY, (Reported) Furosemide 40 Mg Tablet, 40 MG PO DAILY, (Reported) Levothyroxine Sodium 25 Mcg Tablet, 25 MCG PO DAILY, (Reported) Meclizine HCl 25 Mg Tablet, 25 MG PO TID PRN for DIZZINESS, (Reported) Metoprolol Succinate 50 Mg Tab.er.24h, 50 MG PO DAILY, (Reported) Multivit-Min/FA/Lycopene/Lut 1 Each Tablet, 1 TAB PO DAILY, (Reported) Potassium Chloride 20 Meq Tab.er.prt, 20 MEQ PO DAILY, (Reported) Prednisone 20 Mg Tab, 40 MG PO DAILY Prescribed by: JAYDEN WELCH on 01/23/19 6198 Simvastatin 20 Mg Tablet, 20 MG PO DAILY, (Reported) LAST FILLED #90 6-28-18 Patient Home Medication List Home Medication List Reviewed: Yes Review of Systems Review of Systems Constitutional: see HPI EENTM: see HPI, no symptoms reported; No ear pain, No nose congestion Respiratory: no symptoms reported, see HPI; No cough Cardiovascular: no symptoms reported, see HPI; No chest pain Gastrointestinal: no symptoms reported, see HPI All Other Systems Reviewed Negative Unless Noted: Yes Past Wzoqzlw-Hafhpj-Xtyrif Hx Patient Social History Tobacco Use?: No Use of E-Cig and/or Vaping dev: No Substance use?: No Alcohol Use?: No Pt feels they are or have been: No Immunizations Up To Date Tetanus Booster (TDap): Unknown PED Vaccines UTD: No Influenza Vaccine Up-to-Date: No; Not Current First/Initial COVID19 Vaccinat: 477336 Second COVID19 Vaccination Henri: 395957 COVID19 Vaccine Afternoon Nanny: EULA Seasonal Allergies Seasonal Allergies: No Past Medical History Surgery/Hospitalization HX: HX OF DIZZINESS, TAKES MECLAZINE AT HOME. Surgeries: Yes (BILATERAL LEG VEIN STRIPPING ; MULTIPLE CARDIAC CATHS; LEFT WRIST REPAIR) Appendectomy, Cardiac, Ear Surgery, Hysterectomy, Orthopedic, Tubal Ligation, Vascular Surgery Respiratory: Yes Asthma, Pneumonia, Chronic Bronchitis, Sleep Apnea, COPD Currently Using CPAP: No Currently Using BIPAP: No Cardiac: Yes ([place] 2004; VARICOSE VEINS) Atrial Fibrillation, Coronary Artery Disease, Heart Attack, High Cholesterol, Hypertension, Irregular Heartbeat, Peripheral Vascular Neurological: Yes Headaches /Migraines 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 Disorders: No Female 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 STRATEGY EXECUTION CONSULTANT History: Menopausal Sexually Transmitted Disease: No HIV/AIDS: No Genitourinary: No Gastrointestinal: No Musculoskeletal: Yes ("PLATE IN LEFT WRIST"--NARCOTIC DEPENDENT) Arthritis, Chronic Back Pain, Fractures Endocrine: Yes Hypothyroidsim Loss of Vision: Denies Hearing Impairment: Denies Cancer: No Psychosocial: Yes Anxiety, Bipolar, Depression Integumentary: No Blood Disorders: No Adverse Reaction/Blood Tranf: No Family Medical History Reviewed Nursing Family Hx Cancer 03 MOTHER, Onset:60 years & older son, Onset:10's - 15 Dementia 03 MOTHER, Onset:60 years & older Family history: Alzheimer's disease 03 MOTHER, Onset:60 years & older Family history: Hypertension 09 BROTHER, Onset:30's - 40 Family history: Thyroid disorder daughter, Onset:20's - 25 History of - respiratory disease 09 BROTHER, Onset:[place] No Pertinent Family Hx Physical Exam Vital Signs Vital Signs - First Documented 12/24/20 11:47 Temp 35.8 Pulse 77 Resp 18 B/P (MAP) 139/98 (112) Pulse Ox 95 O2 Delivery Room Air Capillary Refill : Less Than 3 Seconds Height, Weight, BMI Height: 6'0.00" Weight: 299lbs. 0.0oz. 135.200315nz; 44.00 BMI Method:Stated General Appearance: No Apparent Distress, WD/WN HEENT: PERRL/EOMI, TMs Normal, Normal ENT Inspection, Pharynx Normal Neck: Full Range of Motion, Normal Inspection, Non Tender, Supple Respiratory: Chest Non Tender, Lungs Clear, Normal Breath Sounds Cardiovascular: Regular Rate, Rhythm, No Edema, No Murmur, Normal Peripheral Pulses Gastrointestinal: Normal Bowel Sounds, Non Tender, Soft Extremity: Normal Capillary Refill, Normal Inspection, Normal Range of Motion, Non Tender, No Calf Tenderness, No Pedal Edema Neurologic/Psychiatric: Alert, Oriented x3, No Motor/Sensory Deficits, Normal Mood/Affect, nailer hand II-XII Norm as Tested Progress/Results/Core Measures Suspected Sepsis SIRS Temperature: Pulse: 77 Respiratory Rate: 18 Laboratory Tests 12/24/20 11:47: White Blood Count 5.1 Blood Pressure 139 /98 Mean: 112 Laboratory Tests 12/24/20 11:47: Creatinine 0.82, INR Comment 1.0, Platelet Count 184, Total Bilirubin 0.4 Results/Orders Lab Results Laboratory Tests Test 12/24/20 11:47 Range/Units White Blood Count 5.1 4.3-11.0 10^3/uL Red Blood Count 4.80 3.80-5.11 10^6/uL Hemoglobin 14.4 11.5-16.0 g/dL Hematocrit 45 35-52 % Mean Corpuscular Volume 93 80-99 fL Mean Corpuscular Hemoglobin 30 25-34 pg Mean Corpuscular Hemoglobin Concent 32 32-36 g/dL Red Cell Distribution Width 13.9 10.0-14.5 % Platelet Count 184 130-400 10^3/uL Mean Platelet Volume 9.9 9.0-12.2 fL Immature Granulocyte % (Auto) 1 % Neutrophils (%) (Auto) 56 42-75 % Lymphocytes (%) (Auto) 31 12-44 % Monocytes (%) (Auto) 9 0-12 % Eosinophils (%) (Auto) 3 0-10 % Basophils (%) (Auto) 0 0-10 % Neutrophils # (Auto) 2.9 1.8-7.8 10^3/uL Lymphocytes # (Auto) 1.6 1.0-4.0 10^3/uL Monocytes # (Auto) 0.4 0.0-1.0 10^3/uL Eosinophils # (Auto) 0.2 0.0-0.3 10^3/uL Basophils # (Auto) 0.0 0.0-0.1 10^3/uL Immature Granulocyte # (Auto) 0.1 0.0-0.1 10^3/uL Prothrombin Time 13.6 12.2-14.7 SEC INR Comment 1.0 0.8-1.4 Activated Partial Thromboplast Time 26 24-35 SEC Sodium Level 141 135-145 MMOL/L Potassium Level 3.4 L 3.6-5.0 MMOL/L Chloride Level 105 98-107 MMOL/L Carbon Dioxide Level 27 21-32 MMOL/L Anion Gap 9 5-14 MMOL/L Blood Urea Nitrogen 7 7-18 MG/DL Creatinine 0.82 0.60-1.30 MG/DL Estimat Glomerular Filtration Rate 70 BUN/Creatinine Ratio 9 Glucose Level 109 H 70-105 MG/DL Calcium Level 9.5 8.5-10.1 MG/DL Corrected Calcium 9.6 8.5-10.1 MG/DL Magnesium Level 1.7 1.6-2.4 MG/DL Total Bilirubin 0.4 0.1-1.0 MG/DL Aspartate Amino Transf (AST/SGOT) 23 5-34 U/L Alanine Aminotransferase (ALT/SGPT) 28 0-55 U/L Alkaline Phosphatase 86 40-136 U/L Myoglobin 41.3 10.0-92.0 NG/ML Troponin I < 0.028 <0.028 NG/ML B-Type Natriuretic Peptide 118.8 H <100.0 PG/ML Total Protein 7.0 6.4-8.2 GM/DL Albumin 3.9 3.2-4.5 GM/DL My Orders Orders - JAYDEN WELCHP Metoprolol Succinate (Xl) Tab (Toprol Xl (12/24/20 12:09) Meclizine Tablet (Antivert Tablet) (12/24/20 12:09) Cbc With Automated Diff (12/24/20 12:10) Magnesium (12/24/20 12:10) Chest 1 View, Ap/Pa Only (12/24/20 12:10) Ekg Tracing (12/24/20 12:10) Comprehensive Metabolic Panel (12/24/20 12:10) Myoglobin Serum (12/24/20 12:10) Protime With Inr (12/24/20 12:10) Partial Thromboplastin Time (12/24/20 12:10) Monitor-Rhythm Ecg Trace Only (12/24/20 12:10) Ed Iv/Invasive Line Start (12/24/20 12:10) BNP (12/24/20 12:10) Troponin I (12/24/20 12:10) Ed Iv/Invasive Line Start (12/24/20 12:10) Ns Iv 1000 Ml (Sodium Chloride 0.9%) (12/24/20 12:15) Vital Signs/I&O 12/24/20 12/24/20 11:47 13:36 Temp 35.8 Pulse 77 64 Resp 18 17 B/P (MAP) 139/98 (112) 154/74 Pulse Ox 95 99 O2 Delivery Room Air Capillary Refill : Less Than 3 Seconds Blood Pressure Mean: 112 Progress Note : Time: 11:47 Progress Note Patient seen and evaluated, will obtain EKG, chest x-ray and lab work. Will give meclizine for dizziness 25 mg and metoprolol 50 mg for blood pressure as she has not taken her morning medications. 1240 labs, EKG and chest x-ray are all within normal limits. Patient's blood pressure has improved. She reports that dizziness is improved as well. 1300 discharge instructions and return precautions reviewed with the patient. All questions answered. ECG Initial ECG Impression Date: Dec 24, 2020 Initial ECG Impression Time: 11:55 Initial ECG Rate: 74 Initial ECG Rhythm: Normal Sinus Initial ECG Intervals: Normal Initial ECG Intervals MT 213, QRSD 113, QT 400, QTc 444. [place] P 36, QRS 8, T 57. Initial ECG Impression: Normal Initial ECG Comparisson: Unchanged Diagnostic Imaging Diagonstic Imaging: Xray Plain Films/CT/US/NM/MRI: chest Comments NAME: PEYMAN MENDOZA [facility] REC#: [id number] PT STATUS: REG ER : 1955 PHYSICIAN: JAYDEN WELCH ADMIT DATE: 12/24/20/ER Draft Date of Exam:12/24/20 CHEST 1 VIEW, AP/PA ONLY EXAMINATION: Chest 1 view HISTORY: Chest pain COMPARISON: 08/12/2020 FINDINGS: The lungs are clear without edema or pneumonia. No pleural effusion or pneumothorax. Heart size is mildly enlarged. IMPRESSION: 1. Clear lungs. Dictated on workstation # [id number] Dict: 12/24/20 1227 Trans: 12/24/20 1228 [facility] [id number] Interpreted by: MISHA LUCERO MD Electronically signed by: Reviewed: Reviewed by Me Departure Impression Primary Impression: Vertigo Disposition: 01 HOME, SELF-CARE Condition: Improved Departure-Patient Inst. Decision time for Depature: 12:40 Referrals: [facility] (PCP) Primary Care Physician SONIA MARTIN (Family) Primary Care Physician Patient Instructions: Vertigo (a Type of Dizziness) (DC), Vestibular Exercises Add. Discharge Instructions: Increase water intake, 16 ounces every 2 hours while awake. Continue your home medications. Change positions slowly if you are feeling dizzy. Use the meclizine 25 mg every 8 hours only as needed for dizziness. Follow-up with your primary care provider if symptoms are not improving or worsen. You can try vestibular exercises for dizziness. Schedule an appointment with your activities coordinator. Return to the emergency department for new, urgent healthcare needs. All discharge instructions reviewed with patient and/or family. Voiced understanding. JAYDEN WELCH Dec 24, 2020 12:51
== END 2020-12-24 13:36 | disposition home or self-care (01) ==
LOC: ER 11:43 → EDUNIT# 11:51 → ER 13:36
DX: R42 Dizziness and giddiness (principal); J44.9 Chronic obstructive pulmonary disease, unspecified; G47.30 Sleep apnea, unspecified; I25.2 Old myocardial infarction; I10 Essential (primary) hypertension; E78.00 Pure hypercholesterolemia, unspecified; I48.91 Unspecified atrial fibrillation; I25.10 Atherosclerotic heart disease of native coronary artery without angina pectoris; E03.9 Hypothyroidism, unspecified; Z79.01 Long term (current) use of anticoagulants; Z79.82 Long term (current) use of aspirin; Z79.52 Long term (current) use of systemic steroids; Z79.890 Hormone replacement therapy
CPT/HCPCS: 36415; 71045; 80053; 83735; 83874; 83880; 84484; 85025; 85610; 85730; 93005; 93041

== ENCOUNTER 2021-05-04 12:22 | Emergency (ER) | payer MEDICARE, MEDICAID ==
[~2021-05-04] VITALS: Ht 177.8 cm; Wt 136.0 kg
[~2021-05-04 12:22] MED LIST changes: -CITA40TA11 PO; +CITA40TA13 PO; +CYCL10TA25 PO; +POTA-169 PO; -POTA20TA8 PO
--- NOTE | 2021-05-04 13:13 | Diagnostic Imaging Report ---
INDICATION: Shortness of air with possible COVID exposure. TECHNIQUE: Single-view chest at 12:37 p.m. CORRELATION STUDY: 12/24/2020. FINDINGS: Heart size is enlarged and mediastinum is prominent but overall generally stable. Vasculature appears unchanged. Lung parenchyma is stable. No infiltrate. IMPRESSION: 1. Stable chest demonstrates no acute abnormality. Dictated by: Dictated on workstation # [id number]
[2021-05-04] MEDS ORDERED: RT-ALBUINH IH (13:26)
[2021-05-04] MEDS ORDERED: PRD20T PO (13:26)
[2021-05-04] MEDS ORDERED: AZIT250T12 PO (13:26)
--- NOTE | 2021-05-04 13:27 | ED Cough/URI ---
General Chief Complaint: COVID19 Suspect/Confirmed Stated Complaint: SOB/COVID EXPOSURE Nursing Triage Note: PT TO RM 3 BY WHEELCHAIR WITH COMPLAINT OF WEAKNESS AND FEELING LIKE SOMEONE IS SITTING ON HER LUNG. STATES WAS EXPOSED TO A COWORKER WHO HAD COVID ON WEDNESDAY. Source: patient Exam Limitations: no limitations History of Present Illness Date Seen by Provider: May 04, 2021 Time Seen by Provider: 13:24 Initial Comments To ER with a 2 to 3-day history of cough that is productive in nature and shortness of breath. No fevers. She has a friend at work who tested positive for Covid recently. Timing/Duration: constant Severity/Quality: productive cough Associated Symptoms: cough, shortness of breath Allergies and Home Medications Allergies Coded Allergies: No Known Drug Allergies (Verified , 04/02/15) Patient Home Medication List Home Medication List Reviewed: Yes Albuterol Sulfate (Albuterol Sulfate) 2.5 Mg/3 Ml Vial.neb, 2.5 MG INH Q4H Prescribed by: JAYDEN WELCH on 01/23/19 1652 Amlodipine Besylate (Amlodipine Besylate) 5 Mg Tablet, 5 MG PO DAILY, (Reported) Entered as Reported by: RADHA CORTES on 08/30/18 1044 Apixaban (Eliquis) 5 Mg Tablet, 5 MG PO DAILY, (Reported) Entered as Reported by: ROB SHARMA on 04/02/15 1301 Aspirin (Aspirin EC) 81 Mg Tablet.dr, 81 MG PO DAILY, (Reported) Entered as Reported by: ROB SHARMA on 04/02/15 1301 Furosemide (Furosemide) 40 Mg Tablet, 40 MG PO DAILY, (Reported) Entered as Reported by: ROB SHARMA on 04/02/15 1301 Levothyroxine Sodium (Levothyroxine Sodium) 25 Mcg Tablet, 25 MCG PO DAILY, (Reported) Entered as Reported by: ROB SHARMA on 04/02/15 1301 Meclizine HCl (Meclizine HCl) 25 Mg Tablet, 25 MG PO TID PRN for DIZZINESS, (Reported) Entered as Reported by: ROB SHARMA on 04/02/15 1301 Metoprolol Succinate (Metoprolol Succinate) 50 Mg Tab.er.24h, 50 MG PO DAILY, (Reported) Entered as Reported by: ROB SHARMA on 02/21/18 0853 Multivit-Min/FA/Lycopene/Lut (Centrum Silver Tablet) 1 Each Tablet, 1 TAB PO DAILY, (Reported) Entered as Reported by: ROB SHARMA on 04/02/15 1301 Potassium Chloride (Klor-Con M20) 20 Meq Tab.er.prt, 20 MEQ PO DAILY, (Reported) Entered as Reported by: ROB SHARMA on 04/02/15 1301 Prednisone (Prednisone) 20 Mg Tab, 40 MG PO DAILY Prescribed by: JAYDEN WELCH on 01/23/19 1652 Simvastatin (Simvastatin) 20 Mg Tablet, 20 MG PO DAILY, (Reported) Entered as Reported by: ROB SHARMA on 04/02/15 1301 Review of Systems Review of Systems Constitutional: see HPI EENTM: see HPI Respiratory: see HPI, cough Cardiovascular: no symptoms reported Genitourinary: no symptoms reported Musculoskeletal: no symptoms reported Skin: no symptoms reported Psychiatric/Neurological: No Symptoms Reported Past Jctkvby-Qamrtu-Ailign Hx Patient Social History Tobacco Use?: No Use of E-Cig and/or Vaping dev: No Substance use?: No Alcohol Use?: No Pt feels they are or have been: No Immunizations Up To Date Tetanus Booster (TDap): Unknown PED Vaccines UTD: No Influenza Vaccine Up-to-Date: No; Not Current First/Initial COVID19 Vaccinat: 4200527 Second COVID19 Vaccination Henri: [id number] Third COVID19 Vaccination Date: 4200527 Seasonal Allergies Seasonal Allergies: No Past Medical History Surgery/Hospitalization HX: HX OF DIZZINESS, TAKES MECLAZINE AT HOME. 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 Sexually Transmitted Disease: No HIV/AIDS: No Genitourinary: No Gastrointestinal: No Musculoskeletal: Yes ("PLATE IN LEFT WRIST"--NARCOTIC DEPENDENT) Arthritis, Chronic Back Pain, Fractures Endocrine: Yes Hypothyroidsim Loss of Vision: Denies Hearing Impairment: Denies Cancer: No Psychosocial: Yes Anxiety, Bipolar, Depression Integumentary: No Blood Disorders: No Adverse Reaction/Blood Tranf: No Family Medical History Cancer 03 MOTHER, Onset:60 years & older son, Onset:10's - 15 Dementia 03 MOTHER, Onset:60 years & older Family history: Alzheimer's disease 03 MOTHER, Onset:60 years & older Family history: Hypertension 09 BROTHER, Onset:30's - 40 Family history: Thyroid disorder daughter, Onset:20's - 25 History of - respiratory disease 09 BROTHER, Onset: No Pertinent Family Hx Physical Exam Vital Signs - First Documented 05/04/21 12:25 Pulse 80 Resp 19 B/P (MAP) 167/81 (109) Pulse Ox 96 O2 Delivery Room Air Capillary Refill : Less Than 3 Seconds Height: 6'0.00" Weight: 299lbs. 0.0oz. 135.504211dd; 43.00 BMI Method:Stated General Appearance: WD/WN, no apparent distress, other (Heart rate 75 oxygen saturation 95% room air) HEENT: PERRL/EOMI, normal ENT inspection Neck: non-tender, full range of motion Respiratory: normal breath sounds, no respiratory distress, no accessory muscle use; No wheezing Cardiovascular: regular rate, rhythm, no murmur Gastrointestinal: normal bowel sounds, non tender, soft Neurologic/Psychiatric: alert, normal mood/affect, oriented x 3 Skin: normal color, warm/dry Progress/Results/Core Measures Suspected Sepsis SIRS Temperature: Pulse: 80 Respiratory Rate: 19 Blood Pressure 167 /81 Mean: 109 Results/Orders Lab Results Laboratory Tests Test 05/04/21 12:27 Range/Units Influenza Type A (RT-PCR) Not Detected Not Detecte Influenza Type B (RT-PCR) Not Detected Not Detecte SARS-CoV-2 RNA (RT-PCR) Not Detected Not Detecte My Orders Orders - JONNATHAN MALLOY APRN Covid 19 Inhouse Test (05/04/21 12:29) Influenza A And B By Pcr (05/04/21 12:29) Chest 1 View, Ap/Pa Only (05/04/21 12:29) Vital Signs/I&O 05/04/21 12:25 Pulse 80 Resp 19 B/P (MAP) 167/81 (109) Pulse Ox 96 O2 Delivery Room Air Capillary Refill : Less Than 3 Seconds Blood Pressure Mean: 109 Departure Communication (Admissions) Her chest x-ray is clear Impression Primary Impression: Bronchitis Disposition: 01 HOME, SELF-CARE Condition: Stable Departure-Patient Inst. Decision time for Depature: 13:25 Referrals: [facility] (PCP) Primary Care Physician SONIA MARTIN (Family) Primary Care Physician Patient Instructions: Acute Bronchitis, Adult (DC) Scripts Albuterol Sulfate (PROAIR HFA) 1 Puff Puff 2 PUFF IH Q4H PRN for WHEEZING, #1 EA 1 PUFF = 90 MCG Prov: JONNATHAN MALLOY APRN 05/04/21 Prednisone (Prednisone) 20 Mg Tab 40 MG PO DAILY, #6 TAB 0 Refills Prov: JONNATHAN MALLOY APRN 05/04/21 Azithromycin (Azithromycin) 250 Mg Tablet 250 MG PO UD, #6 TAB TAKE 2 TABLETS ON DAY ONE THEN TAKE 1 TABLET DAILY FOR FOUR MORE DAYS Prov: JONNATHAN MALLOY APRN 05/04/21 Work/School Note: Work Release Form Date Seen in the Emergency Department: May 04, 2021 Return to Work: May 06, 2021 JONNATHAN MALLOY APRN May 04, 2021 13:27
[2021-05-04 13:40] VITALS: BP 169/81
== END 2021-05-04 13:40 | disposition home or self-care (01) ==
LOC: EDUNIT# 12:22 → ER 12:23
DX: J40 Bronchitis, not specified as acute or chronic (principal); G47.30 Sleep apnea, unspecified; J44.9 Chronic obstructive pulmonary disease, unspecified; I25.2 Old myocardial infarction; I10 Essential (primary) hypertension; E78.00 Pure hypercholesterolemia, unspecified; I25.10 Atherosclerotic heart disease of native coronary artery without angina pectoris; I48.91 Unspecified atrial fibrillation; E03.9 Hypothyroidism, unspecified; Z20.822 Contact with and (suspected) exposure to COVID-19; Z79.890 Hormone replacement therapy; Z79.01 Long term (current) use of anticoagulants; Z79.82 Long term (current) use of aspirin; Z79.899 Other long term (current) drug therapy
CPT/HCPCS: 71045; 87636

== ENCOUNTER 2021-06-16 02:49 | Emergency (ER) | payer MEDICARE, MEDICAID ==
[~2021-06-16] VITALS: Ht 178 cm; Wt 136.0 kg
[~2021-06-16 02:49] MED LIST changes: +AZIT250T12 PO; +RT-ALBUINH IH
[2021-06-16] MEDS ORDERED: ASPIRIN 81 MG CHEW (CHILDREN'S ASA) PO ONE (03:00)
[2021-06-16 03:05] LABS: BASOPHILS % (AUTO) 1 % (0-10); EOSINOPHILS # (AUTO) 0.3 10^3/uL (0.0-0.3); EOSINOPHILS % (AUTO) 4 % (0-10); HEMATOCRIT 44 % (35-52); HEMOGLOBIN 14.3 g/dL (11.5-16.0); LYMPHOCYTES # (AUTO) 2.2 10^3/uL (1.0-4.0); LYMPHOCYTES % (AUTO) 28 % (12-44); MEAN CORPUSCULAR HEMOGLOBIN 30 pg (25-34); MEAN CORPUSCULAR HGB CONC 33 g/dL (32-36); MEAN CORPUSCULAR VOLUME 93 fL (80-99); MEAN PLATELET VOLUME 9.5 fL (9.0-12.2); MONOCYTES # (AUTO) 0.5 10^3/uL (0.0-1.0); MONOCYTES % (AUTO) 7 % (0-12); NEUTROPHILS # (AUTO) 4.9 10^3/uL (1.8-7.8); NEUTROPHILS % (AUTO) 61 % (42-75); PLATELET COUNT 181 10^3/uL (130-400)
[2021-06-16 03:09] VITALS: BP 133/99
[2021-06-16 03:15] LABS: PROTHROMBIN TIME PATIENT 13.4 SEC (12.2-14.7)
[2021-06-16 03:16] LABS: ALBUMIN 3.6 GM/DL (3.2-4.5); CHLORIDE 106 MMOL/L (98-107); POTASSIUM 3.3 MMOL/L (3.6-5.0); SODIUM 142 MMOL/L (135-145)
[2021-06-16 03:18] LABS: CALCIUM 8.8 MG/DL (8.5-10.1)
[2021-06-16 03:19] LABS: GLUCOSE 173 MG/DL (70-105); TOTAL PROTEIN 6.6 GM/DL (6.4-8.2)
[2021-06-16 03:20] LABS: CARBON DIOXIDE 23 MMOL/L (21-32)
[2021-06-16 03:21] LABS: BILIRUBIN,TOTAL 0.3 MG/DL (0.1-1.0)
[2021-06-16 03:22] LABS: ALKALINE PHOSPHATASE 107 U/L (40-136); CREATININE SERUM 0.79 MG/DL (0.60-1.30); GFR ESTIMATED 82
[2021-06-16 03:23] LABS: BUN/CREATININE RATIO 10
[2021-06-16 03:25] LABS: ALANINE AMINOTRANSFERASE 18 U/L (0-55)
[2021-06-16 03:26] LABS: MAGNESIUM 1.8 MG/DL (1.6-2.4)
[2021-06-16 03:27] LABS: CREATINE KINASE 49 U/L (29-168)
[2021-06-16 03:34] LABS: CREATINE KINASE MB 0.6 NG/ML (<6.6)
[2021-06-16 03:46] LABS: TSH (THYROID ANALYZER) 4.86 UIU/ML (0.35-4.94)
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
[2021-06-16] MEDS ORDERED: meTOproloL SUCCINATE 50 MG (TOPROL XL) TAB PO SCH (04:15)
[2021-06-16] MEDS ORDERED: KCL 10 MEQ TAB (MICRO K) PO ONE (04:15)
--- NOTE | 2021-06-16 05:52 | Diagnostic Imaging Report ---
INDICATION: CP chest pain COMPARISON: 05/04/2021 FINDINGS: Single frontal view of the chest demonstrates normal heart size and pulmonary vascularity. The lungs are well aerated and clear. No large pleural effusion or pneumothorax is seen. The visualized osseous structures show no acute abnormalities. IMPRESSION: 1. No acute cardiopulmonary process. Dictated by: Dictated on workstation # [id number]
== END 2021-06-16 04:55 | disposition home or self-care (01) ==
LOC: EDUNIT# 02:49 → ER 02:50
DX: I48.20 Chronic atrial fibrillation, unspecified (principal); G47.30 Sleep apnea, unspecified; J44.9 Chronic obstructive pulmonary disease, unspecified; I25.2 Old myocardial infarction; I10 Essential (primary) hypertension; I25.10 Atherosclerotic heart disease of native coronary artery without angina pectoris; E78.00 Pure hypercholesterolemia, unspecified; E66.9 Obesity, unspecified; E03.9 Hypothyroidism, unspecified; Z68.41 Body mass index [BMI] 40.0-44.9, adult; Z79.890 Hormone replacement therapy; Z79.01 Long term (current) use of anticoagulants; Z79.82 Long term (current) use of aspirin; Z79.899 Other long term (current) drug therapy
CPT/HCPCS: 36415; 71045; 80053; 82550; 82553; 83735; 83874; 83880; 84443; 84484; 85025; 85610; 85730; 93005; 93041

== ENCOUNTER 2022-06-02 13:49 | Emergency (ER) | payer OTHER, MEDICAID ==
[~2022-06-02] VITALS: Ht 177.8 cm; Wt 131.5 kg
[~2022-06-02 13:49] MED LIST changes: +ALBU8.5H6 IH; -RT-ALBUINH IH
--- NOTE | 2022-06-02 14:13 | ED Fall/Injury ---
General Chief Complaint: Trauma-Non Activation Stated Complaint: FALL | HEAD INJ Nursing Triage Note: PT TO RM 3 WITH CC OF FALL ABOUT 10 MIN PRIOR TO ARRIVAL. PT STATES SHE STEPPED OFF CURB WRONG CAUING HER TO FALL AND HIT HER HEAD. COMPLAINS OF PAIN IF R HAND. PT REPORTS IS ON BLOOD THINNER. PT DENIES LOC AND PAIN IN NECK OR BACK. PT a&OX4 Source: patient Exam Limitations: no limitations History of Present Illness Date Seen by Provider: Jun 02, 2022 Time Seen by Provider: 13:54 Initial Comments 67-year-old female with past medical history of A-fib on Eliquis coming in after she tripped on a curb landing on the right side of her face shortly prior to arrival. Did not pass out, remembers all events, no vomiting since. Does have a mild headache which is constant and throbbing. Also having some mild right ring finger pain where she landed. Denies any neck or back pain. Has been ambulating since the incident without difficulty. Is otherwise denying any other acute complaints. She is unsure of her last tetanus vaccine, but believes it was more than 10 years ago. Allergies and Home Medications Allergies Coded Allergies: No Known Drug Allergies (Verified , 04/02/15) Patient Home Medication List Home Medication List Reviewed: Yes Albuterol Sulfate (Albuterol Sulfate) 2.5 Mg/3 Ml Vial.neb, 2.5 MG INH Q4H Prescribed by: JAYDEN WELCH on 01/23/19 1652 Albuterol Sulfate (Ventolin Hfa) 1 Puff Puff, 2 PUFF IH Q4H PRN for WHEEZING Prescribed by: JONNATHAN MALLOY on 05/04/21 1326 Amlodipine Besylate (Amlodipine Besylate) 5 Mg Tablet, 5 MG PO DAILY, (Reported) Entered as Reported by: RADHA CORTES on 08/30/18 1044 Apixaban (Eliquis) 5 Mg Tablet, 5 MG PO DAILY, (Reported) Entered as Reported by: ROB SHARMA on 04/02/15 1301 Aspirin (Aspirin EC) 81 Mg Tablet.dr, 81 MG PO DAILY, (Reported) Entered as Reported by: ROB SHARMA on 04/02/15 1301 Azithromycin (Azithromycin) 250 Mg Tablet, 250 MG PO UD Prescribed by: JONNATHAN MALLOY on 05/04/21 1326 Furosemide (Furosemide) 40 Mg Tablet, 40 MG PO DAILY, (Reported) Entered as Reported by: ROB SHARMA on 04/02/15 1301 Hydrocodone Bit/Acetaminophen (HYDROcodone/APAP 5 MG/325 MG TAB) 1 Tab Tab, 1 TAB PO Q6H PRN for PAIN-SEVERE (8-10) Prescribed by: EVETTE PAYNE on 06/02/22 1500 Levothyroxine Sodium (Levothyroxine Sodium) 25 Mcg Tablet, 25 MCG PO DAILY, (Reported) Entered as Reported by: ROB SHARMA on 04/02/15 1301 Meclizine HCl (Meclizine HCl) 25 Mg Tablet, 25 MG PO TID PRN for DIZZINESS, (Reported) Entered as Reported by: ROB SHARMA on 04/02/15 1301 Metoprolol Succinate (Metoprolol Succinate) 50 Mg Tab.er.24h, 50 MG PO DAILY, (Reported) Entered as Reported by: ROB SHARMA on 02/21/18 0853 Multivit-Min/FA/Lycopene/Lut (Centrum Silver Tablet) 1 Each Tablet, 1 TAB PO DAILY, (Reported) Entered as Reported by: ROB SHARMA on 04/02/15 1301 Potassium Chloride (Klor-Con M20) 20 Meq Tab.er.prt, 20 MEQ PO DAILY, (Reported) Entered as Reported by: ROB SHARMA on 04/02/15 1301 Prednisone (Prednisone) 20 Mg Tab, 40 MG PO DAILY Prescribed by: JAYDEN WELCH on 01/23/19 1652 Prednisone (Prednisone) 20 Mg Tab, 40 MG PO DAILY Prescribed by: JONNATHAN MALLOY on 05/04/21 1326 Simvastatin (Simvastatin) 20 Mg Tablet, 20 MG PO DAILY, (Reported) Entered as Reported by: ROB SHARMA on 04/02/15 1301 Review of Systems Review of Systems Constitutional: No fever Eyes: No Symptoms Reported Ears, Nose, Mouth, Throat: no symptoms reported Respiratory: no symptoms reported Cardiovascular: no symptoms reported Gastrointestinal: no symptoms reported Genitourinary: no symptoms reported Musculoskeletal: see HPI Skin: see HPI Psychiatric/Neurological: See HPI All Other Systems Reviewed Negative Unless Noted: Yes Past Fsszavn-Jlfnvc-Tsdran Hx Patient Social History Tobacco Use?: No Substance use?: No Alcohol Use?: No Pt feels they are or have been: No Immunizations Up To Date Tetanus Booster (TDap): Unknown PED Vaccines UTD: No First/Initial COVID19 Vaccinat: 07/14 Second COVID19 Vaccination Henri: 08/14 Third COVID19 Vaccination Date: 07/14 Seasonal Allergies Seasonal Allergies: No Past Medical History Surgery/Hospitalization HX: HX OF DIZZINESS, TAKES MECLAZINE AT HOME. 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 Sexually Transmitted Disease: No HIV/AIDS: No Genitourinary: No Gastrointestinal: No Musculoskeletal: Yes ("PLATE IN LEFT WRIST"--NARCOTIC DEPENDENT/CHRONIC PAIN; TAILBONE FX) Arthritis, Chronic Back Pain, Fractures Endocrine: Yes (OBESITY) Hypothyroidsim Loss of Vision: Denies Hearing Impairment: Denies Cancer: No Psychosocial: Yes Anxiety, Bipolar, Depression Integumentary: No Blood Disorders: No Adverse Reaction/Blood Tranf: No Family Medical History Cancer 03 MOTHER, Onset:60 years & older son, Onset:10's - 15 Dementia 03 MOTHER, Onset:60 years & older Family history: Alzheimer's disease 03 MOTHER, Onset:60 years & older Family history: Hypertension 09 BROTHER, Onset:30's - 40 Family history: Thyroid disorder daughter, Onset:20's - 25 History of - respiratory disease 09 BROTHER, Onset:[place] No Pertinent Family Hx PAST SURGICAL HISTORY: -BILATERAL LEG VEIN STRIPPING -LEFT WRIST FX/ORIF 11/2008 -APPENDECTOMY 07/04/[address] ESCOBAR -EAR SURGERY -HYSTERECTOMY 06/1999 -BILATERAL TUBAL LIGATION -MULTIPLE CARDIAC CATHS--NO INTERVENTION. LAST CARDIAC CATH 08/12/[address] PICKENS: CONCLUSIONS: 1. No angiographically significant coronary artery disease. 2. Normal global left ventricular systolic function with ejection fraction of 60%. 3. Left ventricular end-diastolic pressure 8 mmHg. Physical Exam Vital Signs Vital Signs - First Documented 06/02/22 13:52 Temp 36.8 Pulse 72 Resp 18 B/P (MAP) 156/85 (108) Pulse Ox 96 O2 Delivery Room Air Capillary Refill : Less Than 3 Seconds Height, Weight, BMI Height: 6'0.00" Weight: 299lbs. 0.0oz. 135.586349nl; 41.00 BMI Method:Stated General Appearance: WD/WN, no apparent distress HEENT: PERRL/EOMI, pharynx normal, other (normal visual henderson and visual acuity, no diploplia, right-sided facial swelling and bruising around her zygomatic arch) Neck: non-tender, full range of motion, supple, normal inspection Cardiovascular: no edema, no murmur Respiratory: chest non-tender, lungs clear, normal breath sounds, no respiratory distress, no accessory muscle use Gastrointestinal: normal bowel sounds, non tender, soft; No distended, No guarding, No rebound Back: normal inspection, no CVA tenderness, no vertebral tenderness Extremities: normal range of motion, no pedal edema, no calf tenderness, normal capillary refill, other (Normal range of motion of all extremities, swelling to the right ring finger with pain along the PIP with small abrasion) 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, no motor/sensory deficits, alert, normal mood/affect, oriented x 3 Skin: normal color, warm/dry Lymphatic: no adenopathy [place] Coma Score Best Eye Response: (4) Open Spontaneously Best Verbal Response: (5) Oriented Best Motor Response: (6) Obeys Commands Progress/Results/Core Measures Results/Orders My Orders Orders - EVETTE PAYNE MD Ct Head/Face/Cervical Wo (06/02/22 14:09) Dipht,Pertuss(Acell),Tet Adult (Boostrix (06/02/22 14:15) Acetaminophen Tablet (Tylenol Tablet) (06/02/22 14:15) Hand, Right, 3 Views (06/02/22 14:09) Medications Given in ED Current Medications Medications Dose Ordered Sig/Brianna Route Start Time Stop Time Status Last Admin Dose Admin Acetaminophen 1,000 mg ONCE ONCE PO 06/02/22 14:15 06/02/22 14:16 DC 06/02/22 14:27 1,000 MG Diphtheria/ Tetanus/Acell Pertussis 0.5 ml ONCE ONCE IM 06/02/22 14:15 06/02/22 14:16 DC 06/02/22 14:28 0.5 ML Vital Signs/I&O 06/02/22 13:52 Temp 36.8 Pulse 72 Resp 18 B/P (MAP) 156/85 (108) Pulse Ox 96 O2 Delivery Room Air Blood Pressure Mean: 108 Progress Progress Note : Progress Note 67-year-old female with above history coming after a mechanical fall. ABCs were intact, GCS 15, vital stable on presentation. Physical exam with right cheek swelling and right ring finger swelling and pain. CT head, cervical spine, face ordered. Concerning for axillary sinus fracture that is slightly depressed on my interpretation. No head bleed and no cervical spine fracture. X-ray of the hand concerning for potential avulsion fracture of the distal aspect of the right long finger. Clinically she has no pain there and this is not where the injury was. Likely a chronic finding and nothing to be done for this. We will montse tape her ring finger which is hurting for comfort. In regards to her maxillary sinus fracture, this appears to be nonoperative, but I will have her follow-up with the facial surgeon as an outpatient. I believe she is otherwise stable for discharge with outpatient follow-up. She was sent home with strict return precautions Diagnostic Imaging Diagonstic Imaging: Xray (right hand), CT (head, c spine, face) Comments [facility], [place] NAME: PEYMAN MENDOZA [facility] REC#: [id number] PT STATUS: REG ER : 1955 PHYSICIAN: EVETTE PAYNE MD ADMIT DATE: 06/02/22/ER Draft Date of Exam:06/02/22 CT HEAD/FACE/CERVICAL WO PROCEDURE: CT head, face, and cervical spine without contrast. TECHNIQUE: Multiple contiguous axial images were obtained through the head, neck, and facial bones without the use of intravenous contrast. Sagittal and coronal reformations through the cervical spine and facial bones were also performed. Auto Exposure Controls were utilized during the CT exam to meet ALARA standards for radiation dose reduction. INDICATION: Head, face, and neck trauma. Right facial swelling. COMPARISON: CT head from 11/30/2012. FINDINGS: HEAD: No intracranial hyperdense hemorrhage or space-occupying mass. No hydrocephalus or midline shift. Calle-white matter differentiation is well preserved. Basilar cisterns are widely patent. No acute skull fracture. Air-fluid level in the right maxillary sinus is further detailed below. Mastoid air cells are clear. FACE: There is an acute segmental fracture in the anterior wall of the right maxillary sinus, which has the fragment depressed by 4 mm. This results in the air-fluid level in the right maxillary sinus. The lateral wall of the maxillary sinus and zygomatic arch are intact. No orbital fracture on either side. Left zygomatic arch and maxillary sinus vazquez are intact. No fracture of the nasal bones or osseous nasal septum. Pterygoid plates and mandible are intact. Soft tissue swelling in the right malar and infraorbital region with associated contusion. CERVICAL SPINE: No acute fracture or traumatic malalignment in the cervical spine. Airway is widely patent. No retropharyngeal fluid collection. Visualized lung apices are clear. IMPRESSION: 1. No acute intracranial hemorrhage or skull fracture. 2. Fracture in the anterior wall of the right maxillary sinus has mild depression of the fracture fragment. The right orbit and zygomatic arch remain intact. 3. No acute fracture or traumatic malalignment in the cervical spine. Dictated on workstation # [id number] Dict: 06/02/22 1432 Trans: 06/02/22 1440 [id number] Interpreted by: JAH ROSADO MD Electronically signed by: [facility], [place] NAME: PEYMAN MENDOZA [facility] REC#: [id number] PT STATUS: REG ER : 1955 PHYSICIAN: EVETTE PAYNE MD ADMIT DATE: 06/02/22/ER Draft Date of Exam:06/02/22 HAND, RIGHT, 3 VIEWS INDICATION: Fall with right hand injury and pain. FINDINGS: AP, oblique and lateral views of the right hand are obtained. There is a mildly displaced avulsion fracture along the dorsal base of the third distal phalanx. There is associated joint space narrowing of the interphalangeal joints, diffusely. No other definite fracture is seen. Note is made of ulnar minus variation. IMPRESSION: Slightly displaced avulsion fracture along the dorsal base of third distal phalanx. Correlation with site of pain is suggested. Dictated on workstation # [id number] Dict: 06/02/22 1421 Trans: 06/02/22 1425 [id number] Interpreted by: BOONE DALEY MD Electronically signed by: Departure Impression Primary Impression: Maxillary sinus fracture Qualified Codes: S02.401A - Maxillary fracture, unspecified side, initial encounter for closed fracture Additional Impression: Finger contusion Qualified Codes: S60.041A - Contusion of right ring finger without damage to nail, initial encounter Disposition: HOME, SELF-CARE Condition: Stable Departure-Patient Inst. Decision time for Depature: 14:58 Referrals: [facility] [place] (PCP) Primary Care Physician SONIA MARTIN (Family) Primary Care Physician MARY RAMAN DDS Patient Instructions: Facial Fracture (DC) Add. Discharge Instructions: You have a broken bone in your face on the right side over what is called your maxillary sinus. Often there is nothing to do for this. I do want you to fo llow-up with the facial surgeon in [facility], Dr. Raman to be sure there is nothing surgically that needs to be done. Take Tylenol as needed for pain and I recommend icing it. The saline nasal rinses as well. Try not to blow your nose hard or pressure on the area very hard. Scripts Hydrocodone/Acetaminophen (Hydrocodone-Acetamin 5-325 mg) 5 Mg-325 Mg Tablet 1 TAB PO Q6H PRN for PAIN-MODERATE (5-7) for 3 Days, #12 TAB Prov: EVETTE PAYNE MD 06/02/22 Work/School Note: Work Release Form Date Seen in the Emergency Department: Jun 02, 2022 Return to Work: Jun 03, 2022 Restrictions: No Restrictions EVETTE PAYNE MD Jun 02, 2022 14:13
[2022-06-02] MEDS ORDERED: TETANUS,DIPTH,PERTUSS P/F (BOOSTRIX) 0.5 ML VIAL IM ONE (14:15)
[2022-06-02] MEDS ORDERED: ACETAMINOPHEN 500 MG TAB (TYLENOL) PO ONE (14:15)
--- NOTE | 2022-06-02 14:25 | Diagnostic Imaging Report ---
INDICATION: Fall with right hand injury and pain. FINDINGS: AP, oblique and lateral views of the right hand are obtained. There is a mildly displaced avulsion fracture along the dorsal base of the third distal phalanx. There is associated joint space narrowing of the interphalangeal joints, diffusely. No other definite fracture is seen. Note is made of ulnar minus variation. IMPRESSION: Slightly displaced avulsion fracture along the dorsal base of third distal phalanx. Correlation with site of pain is suggested. Dictated by: Dictated on workstation # [id number]
--- NOTE | 2022-06-02 14:41 | Diagnostic Imaging Report ---
PROCEDURE: CT head, face, and cervical spine without contrast. TECHNIQUE: Multiple contiguous axial images were obtained through the head, neck, and facial bones without the use of intravenous contrast. Sagittal and coronal reformations through the cervical spine and facial bones were also performed. Auto Exposure Controls were utilized during the CT exam to meet ALARA standards for radiation dose reduction. INDICATION: Head, face, and neck trauma. Right facial swelling. COMPARISON: CT head from 11/30/2012. FINDINGS: HEAD: No intracranial hyperdense hemorrhage or space-occupying mass. No hydrocephalus or midline shift. Calle-white matter differentiation is well preserved. Basilar cisterns are widely patent. No acute skull fracture. Air-fluid level in the right maxillary sinus is further detailed below. Mastoid air cells are clear. FACE: There is an acute segmental fracture in the anterior wall of the right maxillary sinus, which has the fragment depressed by 4 mm. This results in the air-fluid level in the right maxillary sinus. The lateral wall of the maxillary sinus and zygomatic arch are intact. No orbital fracture on either side. Left zygomatic arch and maxillary sinus vazquez are intact. No fracture of the nasal bones or osseous nasal septum. Pterygoid plates and mandible are intact. Soft tissue swelling in the right malar and infraorbital region with associated contusion. CERVICAL SPINE: No acute fracture or traumatic malalignment in the cervical spine. Airway is widely patent. No retropharyngeal fluid collection. Visualized lung apices are clear. IMPRESSION: 1. No acute intracranial hemorrhage or skull fracture. 2. Fracture in the anterior wall of the right maxillary sinus has mild depression of the fracture fragment. The right orbit and zygomatic arch remain intact. 3. No acute fracture or traumatic malalignment in the cervical spine. Dictated by: Dictated on workstation # [id number]
[2022-06-02] MEDS ORDERED: ACHD5005 PO ×2 (15:00→15:01)
[2022-06-02 15:11] VITALS: BP 158/80
== END 2022-06-02 15:11 | disposition home or self-care (01) ==
LOC: EDUNIT# 13:49 → ER 13:51
DX: S02.40CA Maxillary fracture, right side, initial encounter for closed fracture (principal); S60.041A Contusion of right ring finger without damage to nail, initial encounter; I48.91 Unspecified atrial fibrillation; E66.9 Obesity, unspecified; Z68.41 Body mass index [BMI] 40.0-44.9, adult; Z23 Encounter for immunization; Z79.01 Long term (current) use of anticoagulants; W01.198A Fall on same level from slipping, tripping and stumbling with subsequent striking against other object, initial encounter
CPT/HCPCS: 70450; 70486; 72125; 73130; 90715